=== PATIENT | male | born 1965 | race Caucasian/White ===

== ENCOUNTER 2020-09-11 00:50 | Emergency (ER) | payer OTHER ==
[2020-09-11] MEDS ORDERED: Pepcid 20 MG VIAL IV ONE ×2 (01:23→01:29)
[2020-09-11] MEDS ORDERED: PROTONIX 40 MG IV IV ONE ×5 (01:23→03:48)
[2020-09-11] MEDS ORDERED: SUBLIMAZE 100 MCG/2 ML IV ONE (01:23)
--- NOTE | 2020-09-11 01:29 | ERPHSYRPT ---
- History of Present Illness Time Seen by Provider: 09/11/20 01:26 Historian: patient Exam Limitations: no limitations Patient Subjective Stated Complaint: "My stomach hurts real bad." Triage Nursing Assessment: Patient reported epigastric pain onset 3 - 5 days ago while moving heavy objects. pain described as sharp and intermittently radiating. He is anticoagulated on brilinta. Denied diarrhea/constipation. Reported single episode coffee ground emesis. Denied any abdominal trauma. He reported that he takes Tylenol 500mg tablets - 5 tablets TID over the last three years for his back pain. Denied chest pain, shortness of breath, dizziness/li ghtheadedness. Pupills 3mm bilateral. Symmetrical chest expansion. heart tones S1/S2 RRR. Lungs vesicular throughout A/P dahl. Abdomen soft mildly distened. Bowel sounds normoactive inall quadrants. Tenderness/guarding from the epigastric area to the umbilicus. No rebound or palpable masses. Peripheral pulses +3 bilateral. Gait steady without complications. Physician History: "My stomach hurts real bad." for 1-2 days Patient reported epigastric pain onset 3 - 5 days ago while moving heavy objects. pain described as sharp and intermittently radiating. He is anticoa gulated on brilinta. Denied diarrhea/constipation. Reported single episode coffee ground emesis. Denied any abdominal trauma. He reported that he takes Tylenol 500mg tablets - 5 tablets TID over the last three years for his back pain. Denied chest pain, shortness of breath, dizziness/lightheadedness. Timing/Duration: day(s) (1-2 days) Activities at Onset: none Quality: burning Abdominal Pain Onset Location: epigastric, periumbilical Pain Radiation: no radiation Severity of Pain-Max: moderate Severity of Pain-Current: moderate Modifying Factors: Improves With: antacids Associated Symptoms: denies symptoms Previous symptoms: no prior history Body Map: 1 - area of abdominal pain Allergies/Adverse Reactions: acetaminophen [From Vicodin] Allergy (Verified 09/11/20 01:02) Rash hydrocodone bitartrate [From Vicodin] Allergy (Verified 09/11/20 01:02) Rash Iodinated Contrast Media Allergy (Verified 09/11/20 01:21) ketorolac [From Toradol] Allergy (Verified 09/11/20 01:02) Penicillins Allergy (Verified 09/11/20 01:02) codeine Adverse Reaction (Verified 09/11/20 01:02) codeine phosphate [From Codar D] Adverse Reaction (Verified 09/11/20 01:02) morphine Adverse Reaction (Verified 09/11/20 01:02) pseudoephedrine HCl [From Codar D] Adverse Reaction (Verified 09/11/20 01:02) Home Medications: Aspirin 81 gm Chew [Baby Aspirin 81 mg Chew] 81 mg PO DAILY 04/11/14 [History] Ondansetron HCl [Zofran] 4 mg PO Q6HPRN 04/11/14 [History] Albuterol Sulfate [Proair Digihaler] 2 puff IH QID PRN 09/11/20 [History] Amitriptyline HCl 25 mg [Elavil 25 mg] 25 mg PO HS 09/11/20 [History] Amlodipine Besylate 10 mg PO HS 09/11/20 [History] Atorvastatin Calcium 1 tab PO HS 09/11/20 [History] Budesonide/Formoterol Fumarate [Budesonide-Formoterol 160-4.5] 2 puffs IH BID 09/11/20 [History] Clonazepam 2 mg PO Q5H PRN 09/11/20 [History] Cyclobenzaprine HCl 10 mg [Cyclobenzaprine 10 MG] 10 mg PO DAILY PRN 09/11/20 [History] Fluticasone Propionate [Flovent Diskus] 2 sprays IN DAILY 09/11/20 [History] Metoprolol Succinate 100 mg PO HS 09/11/20 [History] Nitroglycerin [Nitrolingual] 0.4 mg SL DAILY PRN 09/11/20 [History] PANTOPRAZOLE 40 mg Tablet [Protonix 40MG Tablet] 80 mg PO BID 09/11/20 [History] Ticagrelor [Brilinta] 90 mg PO BID 09/11/20 [History] Tiotropium [place] Inhaler [Spiriva 18 Mcg/Cap Inhaler] 2 puffs IH DAILY 09/11/20 [History] lisinopriL [Lisinopril] 40 mg PO HS 09/11/20 [History] Hx Tetanus, Diphtheria Vaccination/Date Given: Yes Hx Influenza Vaccination/Date Given: No Hx Pneumococcal Vaccination/Date Given: No Travel Risk - International Travel Have you traveled outside of the country in past 3 weeks: No - Coronavirus Screening Are you exhibiting any of the following symptoms?: No Close contact with a COVID-19 positive Pt in past 14-21 Days: No - Vaccine Status Have you recieved a Covid-19 vaccination: Yes 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 - Vaccination Dates Date of 2cond Vaccination (if applicable): unknown Dates if Unknown: unknown - Review of Systems Constitutional: No Fever, No Chills Eyes: No Symptoms Ears, Nose, & Throat: No Symptoms Respiratory: No Cough, No Dyspnea Cardiac: No Chest Pain, No Edema, No Syncope Abdominal/Gastrointestinal: Abdominal Pain, No Nausea, No Vomiting, No Diarrhea Genitourinary Symptoms: No Dysuria Musculoskeletal: No Back Pain, No Neck Pain Skin: No Rash Neurological: No Dizziness, No Focal Weakness, No Sensory Changes Psychological: No Symptoms Endocrine: No Symptoms All Other Systems: Reviewed and Negative - Past Medical History Pertinent Past Medical History: Yes Neurological History: No Pertinent History, TIA ENT History: No Pertinent History Cardiac History: Aneurysm, Coronary Artery Disease, Hypertension Respiratory History: COPD, Emphysema, Sleep Apnea, Other Endocrine Medical History: No Pertinent History Musculoskeletal History: No Pertinent History GI Medical History: No Pertinent History History: No Pertinent History Psycho-Social History: Anxiety Male Reproductive Disorders: No Pertinent History Other Medical History: Right lung pnuemo, CHRONIC BACK PAIN. KIDNEY STONES - Past Surgical History Past Surgical History: Yes Neuro Surgical History: No Pertinent History Cardiac: No Pertinent History, Cardiac Catheterization, Cardiac Stent Respiratory: Other Gastrointestinal: No Pertinent History Genitourinary: No Pertinent History Musculoskeletal: Orthopedic Surgery Male Surgical History: No Pertinent History Other Surgical History: R lung cut a 1/4 off the top. 1988, back surgery - Social History Smoking Status: Current every day smoker How long have you smoked: 30 years Exposure to second hand smoke: No Drug Use: none Patient Lives Alone: No - Nursing Vital Signs Nursing Vital Signs: Initial Vital Signs Pulse Rate 65 09/11/20 00:50 Respiratory Rate 18 09/11/20 00:50 Blood Pressure 132/79 09/11/20 00:50 O2 Sat by Pulse Oximetry 100 09/11/20 00:50 Pain Scale Pain Intensity 5 - Physical Exam General Appearance: no apparent distress, alert Eye Exam: PERRL/EOMI, eyes nml inspection Ears, Nose, Throat Exam: normal ENT inspection, pharynx normal, moist mucous membranes Neck Exam: normal inspection, non-tender, supple, full range of motion Respiratory Exam: normal breath sounds, lungs clear, No respiratory distress Cardiovascular Exam: regular rate/rhythm, normal heart sounds Gastrointestinal/Abdomen Exam: soft, tenderness (epigastric), No mass Back Exam: normal inspection, normal range of motion, No CVA tenderness, No vertebral tenderness Extremity Exam: normal inspection, normal range of motion, pelvis stable Neurologic Exam: alert, oriented x 3, cooperative, normal mood/affect, nml cerebellar function, sensation nml, No motor deficits Skin Exam: normal color, warm, dry SpO2: 100 - Course Nursing assessment & vital signs reviewed: Yes - CT Exams Abdomen/Pelvis CT Interpretation: Tele-radiologist Report (no acute changes) Ordered Tests: Active Orders 24 hr Category Date Time Status EKG-ER Only STAT Care 09/11/20 03:34 Completed ABDOMEN AND PELVIS W/0 CONTRAS [CT] Stat Exams 09/11/20 01:23 Taken AMYLASE Stat Lab 09/11/20 01:34 Completed CBC W DIFF Stat Lab 09/11/20 01:34 Completed CMP Stat Lab 09/11/20 01:34 Completed LIPASE Stat Lab 09/11/20 01:34 Completed TROPONIN Q3H Lab 09/11/20 03:45 Completed Medication Summary Discontinued Medications Generic Name Dose Route Start Last Admin Trade Name Freq PRN Reason Stop Dose Admin Al Hydrox/Mg Hydrox/Simethicone Confirm 09/11/20 03:46 Maalox Es 30 Ml Unit Dose Administered 09/11/20 03:47 Dose 30 ml .ROUTE .STK-MED ONE Famotidine 20 mg 09/11/20 01:23 09/11/20 01:38 Pepcid 20 Mg Vial IV 09/11/20 01:24 20 mg STAT ONE Administration Famotidine Confirm 09/11/20 01:29 Pepcid 20 Mg Vial Administered 09/11/20 01:30 Dose 20 mg IV .STK-MED ONE Fentanyl Citrate 50 mcg 09/11/20 01:23 09/11/20 01:35 Sublimaze 100 Mcg/2 Ml IV 09/11/20 01:24 50 mcg STAT ONE Administration Fentanyl Citrate Confirm 09/11/20 01:30 Sublimaze 100 Mcg/2 Ml Administered 09/11/20 01:31 Dose 100 mcg .ROUTE .STK-MED ONE Hydromorphone HCl 1 mg 09/11/20 02:16 09/11/20 02:22 Hydromorphone 1 Mg/Ml Injection IV 09/11/20 02:17 1 mg STAT ONE Administration Hydromorphone HCl Confirm 09/11/20 02:21 Hydromorphone 1 Mg/Ml Injection Administered 09/11/20 02:22 Dose 1 mg .ROUTE .STK-MED ONE Sodium Chloride 1,000 mls @ 100 mls/hr 09/11/20 01:30 09/11/20 03:15 Sodium Chloride 0.9% 1000 Ml IV 10/11/20 01:29 Infused .Q10H KAYLYN Infusion Pantoprazole Sodium 80 mg/ 500 mls @ 50 mls/hr 09/11/20 04:00 09/11/20 03:49 Sodium Chloride IV 10/11/20 03:59 50 mls/hr .Q10H KAYLYN 50 mls/hr Administration Sodium Chloride Confirm 09/11/20 03:48 Sodium Chloride 0.9% 500 Ml Administered 09/11/20 03:49 Dose 500 mls @ ud IV .STK-MED ONE Sodium Chloride Confirm 09/11/20 01:30 Sodium Chloride 0.9% 1000 Ml Administered 09/11/20 01:31 Dose 1,000 mls @ ud .ROUTE .STK-MED ONE Lidocaine HCl Confirm 09/11/20 03:46 Xylocaine Hcl Viscous * Administered 09/11/20 03:47 Dose 15 ml .ROUTE .STK-MED ONE Magnesium Hydroxide 45 ml 09/11/20 03:46 09/11/20 03:58 Gi Cocktail 45 Ml (Maalox/Lidocaine) PO 09/11/20 03:47 45 ml STAT ONE Administration Metoclopramide HCl 10 mg 09/11/20 03:12 09/11/20 03:15 Reglan 10 Mg/2 Ml IV 09/11/20 03:13 10 mg STAT ONE Administration Metoclopramide HCl Confirm 09/11/20 03:12 Reglan 10 Mg/2 Ml Administered 09/11/20 03:13 Dose 10 mg .ROUTE .STK-MED ONE Pantoprazole Sodium 40 mg 09/11/20 01:23 09/11/20 01:35 Protonix 40 Mg Iv IV 09/11/20 01:24 40 mg STAT ONE Administration Pantoprazole Sodium Confirm 09/11/20 01:29 Protonix 40 Mg Iv Administered 09/11/20 01:30 Dose 40 mg IV .STK-MED ONE Pantoprazole Sodium 40 mg 09/11/20 03:12 09/11/20 03:15 Protonix 40 Mg Iv IV 09/11/20 03:13 40 mg STAT ONE Administration Pantoprazole Sodium Confirm 09/11/20 03:12 Protonix 40 Mg Iv Administered 09/11/20 03:13 Dose 40 mg IV .STK-MED ONE Pantoprazole Sodium Confirm 09/11/20 03:48 Protonix 40 Mg Iv Administered 09/11/20 03:49 Dose 80 mg IV .STK-MED ONE Lab/Rad Data: Laboratory Result Diagrams 09/11/20 01:34 09/11/20 01:34 Laboratory Results 09/11/20 09/11/20 09/11/20 Range/Units 03:45 01:34 01:34 WBC 9.5 (4.0-10.5) K/mm3 RBC 3.97 L (4.1-5.6) M/mm3 Hgb 11.5 L (12.5-18.0) gm/dl Hct 36.8 L (42-50) % MCV 92.7 (78-100) fl MCH 29.0 (26-32) pg MCHC 31.3 L (32-36) g/dl RDW 17.0 H (11.5-14.0) % Plt Count 236 (150-450) K/mm3 MPV 9.1 (7.5-11.0) fl Gran % 71.3 H (36.0-66.0) % Eos # (Auto) 0.08 (0-0.5) Absolute Lymphs (auto) 2.03 (1.0-4.6) Absolute Monos (auto) 0.62 (0.0-1.3) Lymphocytes % 21.3 L (24.0-44.0) % Monocytes % 6.5 (0.0-12.0) % Eosinophils % 0.8 (0.00-5.0) % Basophils % 0.1 (0.0-0.4) % Absolute Granulocytes 6.78 (1.4-6.9) Basophils # 0.01 (0-0.4) Sodium 142 (137-145) mmol/L Potassium 4.2 (3.5-5.1) mmol/L Chloride 107 (98-107) mmol/L Carbon Dioxide 22 (22-30) mmol/L Anion Gap 16.9 H (5-15) MEQ/L BUN 25 H (9-20) mg/dL Creatinine 1.84 H (0.66-1.25) mg/dL Estimated GFR 40.8 ML/MIN Glucose 101 (74-106) mg/dL Calcium 9.2 (8.4-10.2) mg/dL Total Bilirubin 0.30 (0.2-1.3) mg/dL AST 27 (17-59) U/L ALT 14 (0-50) U/L Alkaline Phosphatase 105 (38-126) U/L Troponin I < 0.012 (0.000-0.034) ng/mL Serum Total Protein 7.8 (6.3-8.2) g/dL Albumin 4.2 (3.5-5.0) g/dL Amylase 37 (30-110) U/L Lipase 87 (23-300) U/L - Progress Progress: unchanged, pain not gone completely Progress Note: 09/11/20 04:19 Patient was given IV fentanyl, IV Pepcid, IV Protonix, IV Dilaudid. After IV Dilaudid patient has a bradycardic episode so patient was given IV fluid bolus and Protonix IV drip was started [place] [facility] contacted and they accepted patien t. Patient wants to go home but patient is in so much abdominal pain that he is rolling into his bed with agonizing pain. I talked to his and explained her that he cannot go home he needs to be transferred all arrangements has been made. Patient also agrees with this and she is trying to explain patient to get transferred to [place]. 09/11/20 06:59 Patient signed AMA Discussed with Dr.: Other ([facility], Hospitalist Sx) Will see patient in: other ([place], [place], ER) Counseled pt/family regarding: lab results, diagnosis, need for follow-up, rad results - Departure Departure Disposition: AMA Clinical Impression: Acute exacerbation of chronic low back pain, Abdominal pain increased with position change, History of abdominal aortic aneurysm, Transient hypotension, Bradyarrhythmia Condition: Fair Critical Care Time: Yes Critical Care Time(excluding separately billable procedures): Critical 75-104 mins Referrals: HOSPITAL,'S [Primary Care Provider] - Follow Up with PCP/3 days Instructions: Acute Abdomen (Belly Pain), Adult (DC) Additional Instructions: Discharge/Care Plan DONTE NIDIA was seen on 09/11/20 in the Emergency Room. The patient was counseled regarding Diagnosis,Lab results, Imaging studies, need for follow up and when to return to the Emergency Room. Prescriptions given: Discharge Note I have spoken with the patient and/or caregivers. I have explained the patient's condition, diagnosis and treatment plan based on the information available to me at this time. I have answered the patient's and/or caregiver's questions and a ddressed any concerns. The patient and/or caregivers have as good understanding of the patient's diagnosis, condition and treatment plan as can be expected at this point. The vital signs have been stable. The patient's condition is stable and appropriate for discharge from the emergency department. The patient will pursue further outpatient evaluation with the primary care physician or other designated or consulting physician as outlined in the discharge instructions. The patient and/or caregivers are agreeable to this plan of care and follow-up instructions have been explained in detail. The patient and/or caregivers have received these instruction. The patient/and or caregivers are aware that any significant change in condition or worsening of symptoms should prompt an immediate return to this or the closest emergency department or call 911. DONTE ROBLESNIDIA TRINH was seen on 09/11/20 n the Emergency Room. At that time you were treated for an emergent condition, during your visit Laboratory, Radiology and/or other procedures may have been ordered. It is very important that you follow-up with your Primary Care Physician [facility] within the next 24-48 hours to review your Emergency Room visit and the final results of testing that was ordered. Some test results such as Urine Cultures, Blood Cultures, and other cultures if ordered will not be finalized for 24-48 hours. If you do not have a Primary Care Provider please call the medical records department at [phone] ext [phone] to obtain a copy of your results or you may sign into our patient portal to obtain these results by visiting us @ [email or web address] and completing the following steps: 1. Click on the Patient Portal link 2. Click the Patient Self Enrollment Link to complete the enrollment form and entering your 3. Once the enrollment form is completed you will receive an email with a te [employer] ID and password at the email address you provided. 4. Next choose a user name and password. Your user name must be at least 4 characters long and your password must be at least 4 characters long. 5. Choose a security question from the list and provide your answer to the question. If you already have signed into the Health Portal you may access your Health Care Information 04/09 by the following steps: 1. Login to our website @ [email or web address] 2. Enter your original user name and password. FAQS The [facility] Health Portal is an online tool that contains your Lab Results, Radiology Reports, Visit History, Discharge Instructions and Health Summary Lab and Radiology Results will not be available for 72 hours on the portal. The Portal is a secure site, passwords are encryted and URLs are re-written so they cannot be copied and pasted. You and authorized family members are the only ones who can access your Portal. Also there is a timeout feature that protects your information if you leave the Portal page open. If you have technical difficulty please use the Contact Us link on the page this will allow you to submit any questions you have regarding the Portal or you may contact the Medical Record Department at [phone] ext [phone].
[2020-09-11] MEDS ORDERED: Sodium Chloride 0.9% 1000 ML 1,000 ML IV SCH (01:30)
[2020-09-11] MEDS ORDERED: SUBLIMAZE 100 MCG/2 ML ONE (01:30)
[2020-09-11] MEDS ORDERED: Sodium Chloride 0.9% 1000 ML 1,000 ML ONE (01:30)
[2020-09-11 01:38] LABS: Absolute Neutrophil Ct (ANC) 6.78 (1.4-6.9); BASOPHIL % 0.1 % (0.0-0.4); Basophil (Absolute #) 0.01 (0-0.4); Eosinophil % 0.8 % (0.00-5.0); Eosinophil (Absolute #) 0.08 (0-0.5); Hematocrit 36.8 % (42-50); Hemoglobin 11.5 gm/dl (12.5-18.0); Lymphocyte (Absolute #) 2.03 (1.0-4.6); Lymphocytes % 21.3 % (24.0-44.0); Mean Cell Volume 92.7 fl (78-100); Mean Corpuscular Hgb Concent. 31.3 g/dl (32-36); Mean Platelet Volume 9.1 fl (7.5-11.0); Monocyte (Absolute #) 0.62 (0.0-1.3); Monocytes % 6.5 % (0.0-12.0); Neutrophil % 71.3 % (36.0-66.0); Platelet Count 236 K/mm3 (150-450); Red Blood Count 3.97 M/mm3 (4.1-5.6); White Blood Count 9.5 K/mm3 (4.0-10.5)
[2020-09-11 01:46] LABS: ALBUMIN 4.2 g/dL (3.5-5.0); ANION GAP 16.9 MEQ/L (5-15); BILIRUBIN,TOTAL 0.3 mg/dL (0.2-1.3); Calcium 9.2 mg/dL (8.4-10.2); Creatinine 1 1.84 mg/dL (0.66-1.25); EST GLOMERULAR FILTRATION RATE 40.8 ML/MIN; Potassium 4.2 mmol/L (3.5-5.1); Total Protein 7.8 g/dL (6.3-8.2)
[2020-09-11] MEDS ORDERED: Hydromorphone 1 mg/ml Injection IV ONE (02:16)
[2020-09-11] MEDS ORDERED: Hydromorphone 1 mg/ml Injection ONE (02:21)
[2020-09-11] MEDS ORDERED: Reglan 10 MG/2 ML IV ONE (03:12)
[2020-09-11] MEDS ORDERED: Reglan 10 MG/2 ML ONE (03:12)
[2020-09-11] MEDS ORDERED: GI COCKTAIL 45 ML (Maalox/Lidocaine) PO ONE (03:46)
[2020-09-11] MEDS ORDERED: XYLOCAINE HCl Viscous ONE (03:46)
[2020-09-11] MEDS ORDERED: MAALOX ES 30 ML UNIT DOSE ONE (03:46)
[2020-09-11] MEDS ORDERED: Sodium Chloride 0.9% 500 ML 500 ML IV ONE (03:48)
[2020-09-11] MEDS ORDERED: PROTONIX 40 MG IV*** 80 MG in Sodium Chloride 0.9% 500 ML 500 ML IV SCH (04:00)
[2020-09-11 04:23] VITALS: O2SAT 100
[2020-09-11 05:08] VITALS: BP 110/40; PULSE 51
--- NOTE | 2020-09-11 07:37 | XRAY ---
Indication: Periumbilical/epigastric pain. Nausea and vomiting. Multiple contiguous axial images obtained through the abdomen and pelvis without contrast. Comparison: October 23, 2011. Lung bases again demonstrates scattered atelectasis/scarring without focal infiltrate or effusion. Heart not enlarged. Stable small hiatal hernia. There has been interval L4-L5 fusion with intact bilateral posterior spinal hardware producing beam artifact limiting these levels. Noncontrasted stomach and bowel loops appear nonobstructed. Normal appendix. Mild sigmoid diverticulosis without diverticulitis. No free fluid/air. Tiny hepatic/splenic calcified granulomas. Remaining liver, gallbladder, pancreas, spleen, adrenal glands, kidneys, ureters, and bladder are unremarkable for noncontrast exam. Worsening diffuse scattered vascular calcifications including both main renal arteries distally. New 3.1 x 2.7 cm infrarenal fusiform aneurysm. Osseous structures intact. No ventral or inguinal hernias. Impression: 1. Interval L4-L5 fusion with beam artifact from spinal hardware. 2. Worsening arteriosclerotic disease with new distal AAA. 3. Stable small hiatal hernia sigmoid diverticulosis, and old granulomatous disease. 4. Remaining CT abdomen/pelvis without contrast exam is negative. Comment: Preliminary interpretation made by C. No critical discrepancy.
== END 2020-09-11 05:00 | disposition left against medical advice (07) ==
LOC: ED 00:50
DX: M54.5 Low back pain (principal); R10.9 Unspecified abdominal pain; I71.4 Abdominal aortic aneurysm, without rupture; I95.9 Hypotension, unspecified; I49.8 Other specified cardiac arrhythmias; Z79.899 Other long term (current) drug therapy; Z86.73 Personal history of transient ischemic attack (TIA), and cerebral infarction without residual deficits; I10 Essential (primary) hypertension; I25.10 Atherosclerotic heart disease of native coronary artery without angina pectoris; G47.30 Sleep apnea, unspecified; F51.9 Sleep disorder not due to a substance or known physiological condition, unspecified
CPT/HCPCS: 36415; 74176; 80053; 82150; 83690; 84484; 85025; 93005; 96374; 96375; 96376; 99285; 99291; 99292; J1170; J3010; A9270-GY

== ENCOUNTER 2020-11-01 00:36 | Emergency (ER) | payer OTHER ==
[2020-11-01] MEDS ORDERED: KEFLEX 500 MG PO ONE (00:59)
[2020-11-01] MEDS ORDERED: KEFLEX 500 MG ONE (01:05)
[2020-11-01 01:07] VITALS: O2SAT 96
--- NOTE | 2020-11-01 01:07 | ERPHSYRPT ---
- History of Present Illness Time Seen by Provider: 11/01/20 00:46 Source: patient Exam Limitations: no limitations Physician History: 55 years old patient with history of hypertension, hyperlipidemia, COPD, obstructive sleep apnea who has inspire placed in for SMITH last month and yesterday noticed some white spots on the incisions on the chest wall which he squeezed and small amount of pus came out. Denies any pain. No fever or chills. No erythema at the base of mouth incision. Timing/Duration: yesterday, sudden Quality: other Severity: mild Location: torso Possible Causes: no cause identified Associated Symptoms: rash, swelling/mass/lumps Allergies/Adverse Reactions: acetaminophen [From Vicodin] Allergy (Verified 09/11/20 01:02) Rash hydrocodone bitartrate [From Vicodin] Allergy (Verified 09/11/20 01:02) Rash Iodinated Contrast Media Allergy (Verified 09/11/20 01:21) ketorolac [From Toradol] Allergy (Verified 09/11/20 01:02) Penicillins Allergy (Verified 09/11/20 01:02) codeine Adverse Reaction (Verified 09/11/20 01:02) codeine phosphate [From Codar D] Adverse Reaction (Verified 09/11/20 01:02) morphine Adverse Reaction (Verified 09/11/20 01:02) pseudoephedrine HCl [From Codar D] Adverse Reaction (Verified 09/11/20 01:02) Home Medications: Aspirin 81 gm Chew [Baby Aspirin 81 mg Chew] 81 mg PO DAILY 04/11/14 [History] Ondansetron HCl [Zofran] 4 mg PO Q6HPRN 04/11/14 [History] Albuterol Sulfate [Proair Digihaler] 2 puff IH QID PRN 09/11/20 [History] Amitriptyline HCl 25 mg [Elavil 25 mg] 25 mg PO HS 09/11/20 [History] Amlodipine Besylate 10 mg PO HS 09/11/20 [History] Atorvastatin Calcium 1 tab PO HS 09/11/20 [History] Budesonide/Formoterol Fumarate [Budesonide-Formoterol 160-4.5] 2 puffs IH BID 09/11/20 [History] Clonazepam 2 mg PO Q5H PRN 09/11/20 [History] Cyclobenzaprine HCl 10 mg [Cyclobenzaprine 10 MG] 10 mg PO DAILY PRN 09/11/20 [History] Fluticasone Propionate [Flovent Diskus] 2 sprays IN DAILY 09/11/20 [History] Metoprolol Succinate 100 mg PO HS 09/11/20 [History] Nitroglycerin [Nitrolingual] 0.4 mg SL DAILY PRN 09/11/20 [History] PANTOPRAZOLE 40 mg Tablet [Protonix 40MG Tablet] 80 mg PO BID 09/11/20 [History] Ticagrelor [Brilinta] 90 mg PO BID 09/11/20 [History] Tiotropium [place] Inhaler [Spiriva 18 Mcg/Cap Inhaler] 2 puffs IH DAILY 09/11/20 [History] lisinopriL [Lisinopril] 40 mg PO HS 09/11/20 [History] Hx Tetanus, Diphtheria Vaccination/Date Given: Yes Hx Influenza Vaccination/Date Given: No Hx Pneumococcal Vaccination/Date Given: No Travel Risk - Vaccine Status Have you recieved a Covid-19 vaccination: Yes 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 - Vaccination Dates Date of 2cond Vaccination (if applicable): unknown Dates if Unknown: unknown - Review of Systems Constitutional: No Symptoms Eyes: No Symptoms Ears, Nose, & Throat: No Symptoms Respiratory: No Symptoms Cardiac: No Symptoms Abdominal/Gastrointestinal: No Symptoms Skin: Cellulitis Neurological: No Symptoms Psychological: No Symptoms Endocrine: No Symptoms Hematologic/Lymphatic: No Symptoms Immunological/Allergic: No Symptoms - Past Medical History Pertinent Past Medical History: Yes Neurological History: No Pertinent History, TIA ENT History: No Pertinent History Cardiac History: Aneurysm, Coronary Artery Disease, Hypertension Respiratory History: COPD, Emphysema, Sleep Apnea, Other Endocrine Medical History: No Pertinent History Musculoskeletal History: No Pertinent History GI Medical History: No Pertinent History History: No Pertinent History Psycho-Social History: Anxiety Male Reproductive Disorders: No Pertinent History Other Medical History: Right lung pnuemo, CHRONIC BACK PAIN. KIDNEY STONES - Past Surgical History Past Surgical History: Yes Neuro Surgical History: No Pertinent History Cardiac: No Pertinent History, Cardiac Catheterization, Cardiac Stent Respiratory: Other Gastrointestinal: No Pertinent History Genitourinary: No Pertinent History Musculoskeletal: Orthopedic Surgery Male Surgical History: No Pertinent History Other Surgical History: R lung cut a 1/4 off the top. 1989, back surgery - Social History Smoking Status: Current every day smoker How long have you smoked: 30 years Exposure to second hand smoke: No Drug Use: none Patient Lives Alone: No - Physical Exam General Appearance: no apparent distress, alert Eye Exam: PERRL/EOMI Ears, Nose, Throat Exam: normal ENT inspection Neck Exam: normal inspection, non-tender, supple, full range of motion, other (Well-healing scar elaine at the base of right jaw/upper neck) Respiratory Exam: normal breath sounds, lungs clear Cardiovascular Exam: regular rate/rhythm, normal heart sounds, other (Right- sided chest wall incision with minimal erythema/induration without obvious discharge. No increased temperature.) Back Exam: normal inspection, normal range of motion Extremity Exam: normal inspection, normal range of motion Neurologic Exam: alert, oriented x 3, cooperative Skin Exam: normal color SpO2 Interpretation: normal SpO2: 96 O2 Delivery: Room Air - Progress Progress: unchanged Progress Note: 11/01/20 01:07 Did not notice kirsten cellulitis but has mild induration. Started on Keflex. Recommended outpatient follow-up in 2 days as scheduled. Discussed signs symptoms of worsening needing return to ER which he seems understanding. Counseled pt/family regarding: diagnosis, need for follow-up - Departure Departure Disposition: Home Clinical Impression: Wound, surgical, infected Condition: Stable Critical Care Time: No Referrals: HOSPITAL,'S [Primary Care Provider] - (In 2 days as scheduled) Instructions: Wound Care (DC) Additional Instructions: Keep it clean, take Tylenol as needed, continue with antibiotics. Follow-up with primary care physician for reevaluation in 2 days as scheduled. Return to ER for increasing swelling redness discharge/fever chills etc. Prescriptions: Cephalexin Mh 500 mg [Keflex 500 mg] 500 mg PO TID #21 cap
[2020-11-01 01:25] VITALS: BP 123/76; PULSE 71
== END 2020-11-01 01:24 | disposition home or self-care (01) ==
LOC: ED 00:36
DX: S21.101A Unspecified open wound of right front wall of thorax without penetration into thoracic cavity, initial encounter (principal); I10 Essential (primary) hypertension; E78.5 Hyperlipidemia, unspecified; J44.9 Chronic obstructive pulmonary disease, unspecified; G47.33 Obstructive sleep apnea (adult) (pediatric); Z79.899 Other long term (current) drug therapy
CPT/HCPCS: 99283; A9270-GY

== ENCOUNTER 2020-12-10 01:32 | Emergency (ER) | payer OTHER ==
[2020-12-10] MEDS ORDERED: Reglan 10 MG/2 ML IV ONE (02:06)
[2020-12-10] MEDS ORDERED: BENADRYL 50 MG/ML IV ONE (02:06)
[2020-12-10] MEDS ORDERED: Hydromorphone 1 mg/ml Injection IV ONE (02:06)
[2020-12-10] MEDS ORDERED: Sodium Chloride 0.9% 500 ML 500 ML IV ONE ×2 (02:07→02:17)
[2020-12-10] MEDS ORDERED: Hydromorphone 1 mg/ml Injection ONE (02:16)
[2020-12-10] MEDS ORDERED: Reglan 10 MG/2 ML ONE (02:16)
[2020-12-10] MEDS ORDERED: BENADRYL 50 MG/ML ONE (02:16)
--- NOTE | 2020-12-10 02:58 | ERPHSYRPT ---
- History of Present Illness Time Seen by Provider: 12/10/20 02:06 Source: patient Exam Limitations: no limitations Patient Subjective Stated Complaint: pt states he woke up with a migraine at approx 0230 on 12/09/20 after having a popping sound in the lt side of his head. Triage Nursing Assessment: pt alert and oriented, answers questions approp. pt ambulatory with steady gait noted. skin warma nd dry. respriations nonlabored. pupils equal and reactive. bilat upper and lower ext strength equal and wnl. Physician History: 45 years old male with multiple medical problems including coronary artery disease status post stenting, tobacco abuse, hypertension/COPD, obstructive sleep apnea status post inspire placement recently, migraines presented to the ER with left-sided headache since yesterday 2 AM waking him up from sleep. Patient reported he felt some popping sounds and followed by headache constant, moderate to severe sharp, increased light sensitivity and sound making it worse without any associated nausea and vomiting. She denies any numbness tingling or weakness. No difficulty speech or visual disturbance. Has taken Tylenol at home with no significant relief. Timing/Duration: day(s) (1), constant, sudden, worse Quality: sharpness Severity of Pain-Max: severe Severity of Pain-Current: severe Recent Head Trauma: no recent headache/trauma, frequent headaches Associated Symptoms: denies symptoms, No fever/chills, No loss of consciousness, No nausea/vomiting, No neck pain, No numbness in legs/feet, No seizures, No stiff neck, No trouble walking, No vision changes, No visual disturbance Previous symptoms: same symptoms as today Allergies/Adverse Reactions: acetaminophen [From Vicodin] Allergy (Verified 09/11/20 01:02) Rash hydrocodone bitartrate [From Vicodin] Allergy (Verified 09/11/20 01:02) Rash Iodinated Contrast Media Allergy (Verified 09/11/20:21) ketorolac [From Toradol] Allergy (Verified 09/11/20 01:02) Penicillins Allergy (Verified 09/11/20 01:02) codeine Adverse Reaction (Verified 09/11/20 01:02) codeine phosphate [From Codar D] Adverse Reaction (Verified 09/11/20 01:02) morphine Adverse Reaction (Verified 09/11/20 01:02) pseudoephedrine HCl [From Codar D] Adverse Reaction (Verified 09/11/20 01:02) Home Medications: Aspirin 81 gm Chew [Baby Aspirin 81 mg Chew] 81 mg PO DAILY 04/11/14 [History] Ondansetron HCl [Zofran] 4 mg PO Q6HPRN 04/11/14 [History] Albuterol Sulfate [Proair Digihaler] 2 puff IH QID PRN 09/11/20 [History] Amitriptyline HCl 25 mg [Elavil 25 mg] 25 mg PO HS 09/11/20 [History] Amlodipine Besylate 10 mg PO HS 09/11/20 [History] Atorvastatin Calcium 1 tab PO HS 09/11/20 [History] Budesonide/Formoterol Fumarate [Budesonide-Formoterol 160-4.5] 2 puffs IH BID 09/11/20 [History] Clonazepam 2 mg PO Q5H PRN 09/11/20 [History] Cyclobenzaprine HCl 10 mg [Cyclobenzaprine 10 MG] 10 mg PO DAILY PRN 09/11/20 [History] Fluticasone Propionate [Flovent Diskus] 2 sprays IN DAILY 09/11/20 [History] Metoprolol Succinate 100 mg PO HS 09/11/20 [History] Nitroglycerin [Nitrolingual] 0.4 mg SL DAILY PRN 09/11/20 [History] PANTOPRAZOLE 40 mg Tablet [Protonix 40MG Tablet] 80 mg PO BID 09/11/20 [History] Ticagrelor [Brilinta] 90 mg PO BID 09/11/20 [History] Tiotropium [place] Inhaler [Spiriva 18 Mcg/Cap Inhaler] 2 puffs IH DAILY 09/11/20 [History] lisinopriL [Lisinopril] 40 mg PO HS 09/11/20 [History] Hx Tetanus, Diphtheria Vaccination/Date Given: No (unsure) Hx Influenza Vaccination/Date Given: No Hx Pneumococcal Vaccination/Date Given: No Immunizations Up to Date: No Travel Risk - International Travel Have you traveled outside of the country in past 3 weeks: No - Coronavirus Screening Are you exhibiting any of the following symptoms?: No Close contact with a COVID-19 positive Pt in past 14-21 Days: No - Vaccine Status Have you recieved a Covid-19 vaccination: Yes 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 - Vaccination Dates Dates if Unknown: "few months" - Review of Systems Constitutional: No Symptoms Eyes: No Symptoms Ears, Nose, & Throat: No Symptoms Respiratory: No Symptoms Cardiac: No Symptoms Genitourinary Symptoms: No Symptoms Musculoskeletal: No Symptoms Skin: No Symptoms Neurological: Headache Psychological: No Symptoms Endocrine: No Symptoms Immunological/Allergic: No Symptoms - Past Medical History Pertinent Past Medical History: Yes Neurological History: No Pertinent History, TIA ENT History: No Pertinent History Cardiac History: Aneurysm, Coronary Artery Disease, Hypertension Respiratory History: COPD, Emphysema, Sleep Apnea, Other Endocrine Medical History: No Pertinent History Musculoskeletal History: No Pertinent History GI Medical History: No Pertinent History History: No Pertinent History Psycho-Social History: Anxiety Male Reproductive Disorders: No Pertinent History Other Medical History: Right lung pnuemo, CHRONIC BACK PAIN. KIDNEY STONES - Past Surgical History Past Surgical History: Yes Neuro Surgical History: No Pertinent History Cardiac: No Pertinent History, Cardiac Catheterization, Cardiac Stent Respiratory: Other Gastrointestinal: No Pertinent History Genitourinary: No Pertinent History Musculoskeletal: Orthopedic Surgery Male Surgical History: No Pertinent History Other Surgical History: R lung cut a / off the top. 1988, back surgery , inspire placement - Social History Smoking Status: Current every day smoker How long have you smoked: 30 years Exposure to second hand smoke: No Drug Use: none Patient Lives Alone: No - Nursing Vital Signs Nursing Vital Signs: Initial Vital Signs Temperature 97.0 F 12/10/20 01:41 Pulse Rate 72 12/10/20 01:41 Respiratory Rate 16 12/10/20 01:41 Blood Pressure 141/81 12/10/20 01:41 O2 Sat by Pulse Oximetry 99 12/10/20 01:41 Pain Scale Pain Intensity 2 - Physical Exam General Appearance: no apparent distress Eye Exam: PERRL/EOMI Ears, Nose, Throat Exam: normal ENT inspection, TMs normal, pharynx normal Neck Exam: normal inspection, supple, full range of motion Respiratory Exam: normal breath sounds, lungs clear Cardiovascular Exam: regular rate/rhythm, normal heart sounds Gastrointestinal/Abdominal Exam: soft, No tenderness Extremity Exam: normal inspection, normal range of motion, pelvis stable Mental Status Exam: alert, oriented x 3, cooperative research and insights executive Exam: normal hearing, normal speech, PERRL, No facial asymmetry Coordination/Gait Exam: normal finger to nose, normal cerebellar function Motor/Sensory Exam: no motor deficit, no sensory deficit, no pronator drift, negative Babinski's sign DTR Exam: bicep (R): 2+, bicep (L): 2+, knee (R): 2+, knee (L): 2+ Skin Exam: normal color SpO2 Interpretation: normal SpO2: 96 O2 Delivery: Room Air Ordered Tests: Active Orders 24 hr Category Date Time Status Ambulate Patient ROUTINE Care 12/10/20 02:06 Completed Executive Kitchen Manager STAT Care 12/10/20 02:06 Completed IV Insertion STAT Care 12/10/20 02:06 Completed HEAD WITHOUT CONTRAST [CT] Stat Exams 12/10/20 02:06 Taken Medication Summary Discontinued Medications Generic Name Dose Route Start Last Admin Trade Name Freq PRN Reason Stop Dose Admin Diphenhydramine HCl 25 mg 12/10/20 02:06 12/10/20 02:22 Diphenhydramine Hcl 50 Mg/Ml Vial IV 12/10/20 02:07 25 mg STAT ONE Administration Diphenhydramine HCl Confirm 12/10/20 02:16 Diphenhydramine Hcl 50 Mg/Ml Vial Administered 12/10/20 02:17 Dose 50 mg .ROUTE .STK-MED ONE Hydromorphone HCl 0.5 mg 12/10/20 02:06 12/10/20 02:23 Hydromorphone 1 Mg/1ml Inj 1 Mg/Ml Syringe IV 12/10/20 02:07 0.5 mg STAT ONE Administration Hydromorphone HCl Confirm 12/10/20 02:16 Hydromorphone 1 Mg/1ml Inj 1 Mg/Ml Syringe Administered 12/10/20 02:17 Dose 1 mg .ROUTE .STK-MED ONE Sodium Chloride 500 mls @ 500 mls/hr 12/10/20 02:07 12/10/20 03:56 Sodium Chloride 0.9% 500 Ml IV 12/10/20 03:06 Infused .Q1H ONE Infusion Sodium Chloride Confirm 12/10/20 02:17 Sodium Chloride 0.9% 500 Ml Administered 12/10/20 02:18 Dose 500 mls @ ud IV .STK-MED ONE Metoclopramide HCl 10 mg 12/10/20 02:06 12/10/20 02:23 Metoclopramide Hcl 10 Mg/2 Ml Vial IV 12/10/20 02:07 10 mg STAT ONE Administration Metoclopramide HCl Confirm 12/10/20 02:16 Metoclopramide Hcl 10 Mg/2 Ml Vial Administered 12/10/20 02:17 Dose 10 mg .ROUTE .STK-MED ONE - Progress Progress: improved Air Movement: good Progress Note: 12/10/20 06:45 55 years old is evaluated for left-sided headache without any focal neuro deficit. Given migraine cocktail with Benadryl/Reglan along with Dilaudid and is headache free on reevaluation. CT head is negative. Patient neuro exam nonfocal on repeated evaluation. I believe patient has worsening of migraines since he has inspire on placed which in some patient is reason for recurrent migraine. He does have a neurologist at [facility] which he is advised to follow-up on. Discussed signs symptoms of worsening needing return to ER which he seems understanding. Stable for discharge. Counseled pt/family regarding: diagnosis, need for follow-up, rad results - Departure Departure Disposition: Home Clinical Impression: Migraine Qualifiers: Migraine type: unspecified Status migrainosus presence: without status migrainosus Intractability: not intractable Qualified Code(s): G43.909 - Migraine, unspecified, not intractable, without status migrainosus Condition: Stable Critical Care Time: No Referrals: [facility]OSP[facility] [Primary Care Provider] - (Your neurologist at [facility] for reevaluation) Instructions: Headache, Adult ([facility]) Additional Instructions: Take Tylenol as needed. Follow-up with your [facility] center for evaluation by your neurologist for adjustment in medications. Return to ER for intractable headache, numbness tingling focal weakness, difficulty speech or visual disturbance etc.
[2020-12-10 04:05] VITALS: BP 126/80; PULSE 72
[2020-12-10 07:00] VITALS: O2SAT 96
--- NOTE | 2020-12-10 08:46 | XRAY ---
Indication: Left head pain/headache. Multiple contiguous axial images obtained through the head without contrast. Comparison: April 11, 2014. Normal appearing brain parenchyma, ventricles, and bony calvarium. Visualized paranasal sinuses and mastoid air cells are clear. Impression: Continued normal CT head without contrast exam. Comment: Preliminary interpretation made by [facility]. No critical discrepancy.
== END 2020-12-10 04:04 | disposition home or self-care (01) ==
LOC: ED 01:32
DX: G43.909 Migraine, unspecified, not intractable, without status migrainosus (principal)
CPT/HCPCS: 36000; 70450; 93041; 96360; 96374; 96375; 99284; J1170; J1200

== ENCOUNTER 2020-12-25 01:15 | Emergency (ER) | payer OTHER ==
[2011-11-20 09:43] VITALS: BP 125/77
[2020-12-25] MEDS ORDERED: Hydromorphone 1 mg/ml Injection IM ONE (01:48)
[2020-12-25] MEDS ORDERED: Norflex 60 MG/2 ML IM ONE (01:49)
--- NOTE | 2020-12-25 01:55 | ERPHSYRPT ---
- History of Present Illness Time Seen by Provider: 12/25/20 01:35 Source: patient Exam Limitations: no limitations Patient Subjective Stated Complaint: "I hurt my back." Triage Nursing Assessment: Patient reported that he was lifting a cedar chest 12/24/20 when he strained his back. Has a history of L4/L5 laminectomy with richard stabilization. Reported sharp pain in the lumbar spine radiating up with tingling sensation in his lower extremities. Denied urinary/bowel habit changes of difficulties. Gait slow without complications. No obvious injuries, deformities, or swelling. Strength equal in the bilateral upper/lower extremities. Physician History: 55 years old male with history of chronic back pain with L4/L5 laminectomy presented in the ER with chief complaint of worsening back pain since last evening off. He picked up a heavy chest seizure weighing almost 250 pounds. Patient denies hearing any popping sound but has worsening of pain in the low back and bilateral sacroiliac area with some radiation to upper thighs/buttock and tingly sensations in the legs. Patient does have history of some nerve damage. Denies any weakness in lower extremities or difficulty ambulation but because of pain in the back having hard time walking because the pain gets worse with ambulation particularly for being still. Denies any loss of bowel or bladder control. No perineal numbness. Timing/Duration: yesterday, constant, sudden, worse Method of Injury: lifting Quality: sharp Back Pain Location: lumbar spine, paraspinous muscles Back Pain Radiation: buttocks, upper legs Severity of Pain-Max: severe Severity of Pain-Current: severe Modifying Factors: Worsens With: movement Associated Symptoms: tingling in legs/feet, lower back pain, muscle spasms, No fever, No urinary incontinence, No loss of bowel control, No problems urinating, No numbness in legs/feet, No weakness Previous symptoms: same symptoms as today Allergies/Adverse Reactions: acetaminophen [From Vicodin] Allergy (Verified 12/25/20 01:36) Rash hydrocodone bitartrate [From Vicodin] Allergy (Verified 12/25/20 01:36) Rash Iodinated Contrast Media Allergy (Verified 12/25/20 01:36) ketorolac [From Toradol] Allergy (Verified 12/25/20 01:36) Penicillins Allergy (Verified 12/25/20 01:36) codeine Adverse Reaction (Verified 12/25/20 01:36) codeine phosphate [From Codar D] Adverse Reaction (Verified 12/25/20 01:36) morphine Adverse Reaction (Verified 12/25/20 01:36) pseudoephedrine HCl [From Codar D] Adverse Reaction (Verified 12/25/20 01:36) Home Medications: Aspirin 81 gm Chew [Baby Aspirin 81 mg Chew] 81 mg PO DAILY 04/11/14 [History] Ondansetron HCl [Zofran] 4 mg PO Q6HPRN 04/11/14 [History] Albuterol Sulfate [Proair Digihaler] 2 puff IH QID PRN 09/11/20 [History] Amitriptyline HCl 25 mg [Elavil 25 mg] 25 mg PO HS 09/11/20 [History] Amlodipine Besylate 10 mg PO HS 09/11/20 [History] Atorvastatin Calcium 1 tab PO HS 09/11/20 [History] Budesonide/Formoterol Fumarate [Budesonide-Formoterol 160-4.5] 2 puffs IH BID 09/11/20 [History] Clonazepam 2 mg PO Q5H PRN 09/11/20 [History] Cyclobenzaprine HCl 10 mg [Cyclobenzaprine 10 MG] 10 mg PO DAILY PRN 09/11/20 [History] Fluticasone Propionate [Flovent Diskus] 2 sprays IN DAILY 09/11/20 [History] Metoprolol Succinate 100 mg PO HS 09/11/20 [History] Nitroglycerin [Nitrolingual] 0.4 mg SL DAILY PRN 09/11/20 [History] PANTOPRAZOLE 40 mg Tablet [Protonix 40MG Tablet] 80 mg PO BID 09/11/20 [History] Ticagrelor [Brilinta] 90 mg PO BID 09/11/20 [History] Tiotropium [place] Inhaler [Spiriva 18 Mcg/Cap Inhaler] 2 puffs IH DAILY 09/11/20 [History] lisinopriL [Lisinopril] 40 mg PO HS 09/11/20 [History] Hx Tetanus, Diphtheria Vaccination/Date Given: No (unsure) Hx Influenza Vaccination/Date Given: No Hx Pneumococcal Vaccination/Date Given: No Travel Risk - International Travel Have you traveled outside of the country in past 3 weeks: No - Coronavirus Screening Are you exhibiting any of the following symptoms?: No Close contact with a COVID-19 positive Pt in past 14-21 Days: No - Vaccine Status Have you recieved a Covid-19 vaccination: Yes 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 - Vaccination Dates Date of 2cond Vaccination (if applicable): 05/2020 Dates if Unknown: na - Review of Systems Constitutional: No Symptoms Eyes: No Symptoms Ears, Nose, & Throat: No Symptoms Respiratory: No Symptoms Cardiac: No Symptoms Abdominal/Gastrointestinal: No Symptoms Genitourinary Symptoms: No Symptoms Musculoskeletal: Back Pain Neurological: No Symptoms Psychological: No Symptoms Endocrine: No Symptoms Hematologic/Lymphatic: No Symptoms Immunological/Allergic: No Symptoms - Past Medical History Pertinent Past Medical History: Yes Neurological History: No Pertinent History, TIA ENT History: No Pertinent History Cardiac History: Aneurysm, Coronary Artery Disease, Hypertension Respiratory History: COPD, Emphysema, Sleep Apnea, Other Endocrine Medical History: No Pertinent History Musculoskeletal History: No Pertinent History GI Medical History: No Pertinent History History: No Pertinent History Psycho-Social History: Anxiety Male Reproductive Disorders: No Pertinent History Other Medical History: Right lung pnuemo, CHRONIC BACK PAIN. KIDNEY STONES - Past Surgical History Past Surgical History: Yes Neuro Surgical History: No Pertinent History Cardiac: No Pertinent History, Cardiac Catheterization, Cardiac Stent Respiratory: Other Gastrointestinal: No Pertinent History Genitourinary: No Pertinent History Musculoskeletal: Orthopedic Surgery Male Surgical History: No Pertinent History Other Surgical History: R lung cut a 1/4 off the top. 1988, back surgery , inspire placement - Social History Smoking Status: Current every day smoker How long have you smoked: 30 years Exposure to second hand smoke: No Drug Use: none Patient Lives Alone: No - Nursing Vital Signs Nursing Vital Signs: Initial Vital Signs Pulse Rate 74 12/25/20 01:16 Respiratory Rate 18 12/25/20 01:16 Blood Pressure 128/74 12/25/20 01:16 O2 Sat by Pulse Oximetry 96 12/25/20 01:16 Pain Scale Pain Intensity 9 - Physical Exam General Appearance: no apparent distress, alert Eye Exam: PERRL/EOMI Ears, Nose, Throat Exam: normal ENT inspection Neck Exam: normal inspection, full range of motion Respiratory Exam: normal breath sounds, lungs clear Cardiovascular Exam: regular rate/rhythm, normal heart sounds Gastrointestinal Exam: soft, normal bowel sounds, No tenderness Back Exam: normal inspection, vertebral tenderness (Lumbar spinal and paraspinal area), muscle spasm, other (Straight leg raising test positive bilaterally at 45 degrees. Knee reflexes bilaterally 2+. Normal power bilaterally.), No normal range of motion, No CVA tenderness Extremity Exam: normal inspection, normal range of motion, pelvis stable Neurologic Exam: alert, oriented x 3, cooperative, roller mechanic II-XII nml as tested, nml station & gait Skin Exam: normal color SpO2 Interpretation: normal SpO2: 96 O2 Delivery: Room Air Ordered Tests: Medication Summary Discontinued Medications Generic Name Dose Route Start Last Admin Trade Name Freq PRN Reason Stop Dose Admin Hydromorphone HCl 1 mg 12/25/20 01:48 Hydromorphone 1 Mg/1ml Inj 1 Mg/Ml Syringe IM 12/25/20 01:49 STAT ONE Orphenadrine Citrate 60 mg 12/25/20 01:49 Orphenadrine Citrate 60 Mg/2 Ml Amp IM 12/25/20 01:50 STAT ONE - Progress Progress: improved, pain not gone completely, re-examined Progress Note: 12/25/20 is given pain medications along with muscle relaxant, reevaluation feeling better. Has mild decreased sensations of fine touch in both lower extremities which according to patient is chronic. Does not have any difficulty ambulation. Do not think cauda equina. Recommended taking muscle relaxants and outpatient follow-up with orthopedic/back surgery. Counseled pt/family regarding: diagnosis, need for follow-up - Departure Departure Disposition: Home Clinical Impression: Acute exacerbation of chronic low back pain Condition: Stable Critical Care Time: No Referrals: [facility]OS[facility] [Primary Care Provider] - Follow up/PCP as directed (Call in 2 days for reevaluation) Instructions: Low Back Pain ([facility]) Additional Instructions: Avoid lifting heavy objects. Follow-up with your primary care and neurosurgeon who operated on your back for reevaluation. Return to ER for worsening back pain, numbness weakness of lower extremities/loss of bowel or bladder control/perineal numbness. Prescriptions: Cyclobenzaprine HCl 10 mg [Flexeril 10 MG] 10 mg PO TID #30 tablet
[2020-12-25] MEDS ORDERED: Norflex 60 MG/2 ML ONE (02:01)
[2020-12-25] MEDS ORDERED: Hydromorphone 1 mg/ml Injection ONE (02:02)
== END 2020-12-25 03:13 | disposition home or self-care (01) ==
LOC: ED 01:15
DX: M54.50 Low back pain, unspecified (principal); M62.830 Muscle spasm of back; Z79.899 Other long term (current) drug therapy; Z72.0 Tobacco use; R20.2 Paresthesia of skin
CPT/HCPCS: 96372; 99284; J1170; J2360

== ENCOUNTER 2020-12-29 21:20 | Emergency (ER) | payer OTHER ==
[2020-12-29 22:15] LABS: Absolute Neutrophil Ct (ANC) 8.05 (1.4-6.9); BASOPHIL % 0.3 % (0.0-0.4); Basophil (Absolute #) 0.03 (0-0.4); Eosinophil % 0.9 % (0.00-5.0); Hematocrit 37.7 % (42-50); Hemoglobin 11.6 gm/dl (12.5-18.0); Lymphocyte (Absolute #) 2.02 (1.0-4.6); Lymphocytes % 18.5 % (24.0-44.0); Mean Cell Volume 91.7 fl (78-100); Mean Corpuscular Hemoglobin 28.2 pg (26-32); Mean Corpuscular Hgb Concent. 30.8 g/dl (32-36); Mean Platelet Volume 9.3 fl (7.5-11.0); Monocyte (Absolute #) 0.69 (0.0-1.3); Monocytes % 6.3 % (0.0-12.0); Platelet Count 224 K/mm3 (150-450); Red Blood Count 4.11 M/mm3 (4.1-5.6); Red Cell Distribution Width 15.7 % (11.5-14.0); White Blood Count 10.9 K/mm3 (4.0-10.5)
--- NOTE | 2020-12-29 22:23 | ERPHSYRPT ---
- History of Present Illness Time Seen by Provider: 12/29/20 21:30 Source: patient Exam Limitations: no limitations Patient Subjective Stated Complaint: Patient states " I was walking out to my shed and fell back on my butt. My legs gave out on me and then after it took me awhile to get up and I started walking back to house I became SOB. [facility]." Triage Nursing Assessment: Patient arrived to ED and ambulated back to room without difficulty. Patient A/O times 4. Patient able to follow instructions without difficulty. Patient was in ER on 12/25/20 for chronic back pain. [facility] stated the [facility] that he shouldn't wait till vadim to see MD in case he possibly had blood clot in leg. Patient states he doesn't really have any SOB at this time. Patient able to move all extremities without difficulty. Patient denies any chest pain. Patient denies hitting head and denies losing LOC. No warmth, redness or edema noted to bilateral lower extremities. Patient with no bruising or swelling to back/buttock. + Radial and pedal pulses noted bilateral. Patient denies having any aura before falling. No visual disturbances noted. Physician History: Patient is a 55-year-old male presents to our ED for evaluation of shortness of breath and a fall. Patient states that he was walking to his shed prior to arrival when his legs gave out. Patient fell backwards onto his bottom. Patient got up and walked to his home. Patient stated he was short of breath. [facility] to come to our [facility] to rule out PE. They were concerned that patient's fall and shortness of breath may be related to PE. Patient is a smoker. Patient has chronic back pain. NO acute change in his pain. Patient denies saddle anesthesia. No change in bowel bladder function. No recent back procedures. No fever. No BHT or LOC. No neck pain. Cervical spine cleared clinically. The fall was not associated with any neuro or cardiovascular symptomology. No BHT or LOC. Patient was last in our ED 4 days ago for back pain. Timing/Duration: today Severity: moderate Modifying Factors: Improves With: nothing Associated Symptoms: shortness of breath, No nausea, No vomiting, No diaphoresis, No cough, No chills, No chest pain, No fever, No headaches, No loss of appetite, No syncope, No seizure Allergies/Adverse Reactions: acetaminophen [From Vicodin] Allergy (Verified 12/29/20 21:30) Rash hydrocodone bitartrate [From Vicodin] Allergy (Verified 12/29/20 21:30) Rash Iodinated Contrast Media Allergy (Verified 12/29/20 21:30) ketorolac [From Toradol] Allergy (Verified 12/29/20 21:30) Penicillins Allergy (Verified 12/29/20 21:30) codeine Adverse Reaction (Verified 12/29/20 21:30) codeine phosphate [From Codar D] Adverse Reaction (Verified 12/29/20 21:30) morphine Adverse Reaction (Verified 12/29/20 21:30) pseudoephedrine HCl [From Codar D] Adverse Reaction (Verified 12/29/20 21:30) Home Medications: Aspirin 81 gm Chew [Baby Aspirin 81 mg Chew] 81 mg PO DAILY 04/11/14 [History] Ondansetron HCl [Zofran] 4 mg PO Q6HPRN 04/11/14 [History] Albuterol Sulfate [Proair Digihaler] 2 puff IH QID PRN 09/11/20 [History] Amitriptyline HCl 25 mg [Elavil 25 mg] 25 mg PO HS 09/11/20 [History] Amlodipine Besylate 10 mg PO HS 09/11/20 [History] Atorvastatin Calcium 1 tab PO HS 09/11/20 [History] Budesonide/Formoterol Fumarate [Budesonide-Formoterol 160-4.5] 2 puffs IH BID 09/11/20 [History] Clonazepam 2 mg PO Q5H PRN 09/11/20 [History] Cyclobenzaprine HCl 10 mg [Cyclobenzaprine 10 MG] 10 mg PO DAILY PRN 09/11/20 [History] Fluticasone Propionate [Flovent Diskus] 2 sprays IN DAILY 09/11/20 [History] Metoprolol Succinate 100 mg PO HS 09/11/20 [History] Nitroglycerin [Nitrolingual] 0.4 mg SL DAILY PRN 09/11/20 [History] PANTOPRAZOLE 40 mg Tablet [Protonix 40MG Tablet] 80 mg PO BID 09/11/20 [History] Ticagrelor [Brilinta] 90 mg PO BID 09/11/20 [History] Tiotropium Ottertail Inhaler [Spiriva 18 Mcg/Cap Inhaler] 2 puffs IH DAILY 09/11/20 [History] lisinopriL [Lisinopril] 40 mg PO HS 09/11/20 [History] Hx Tetanus, Diphtheria Vaccination/Date Given: No (unsure) Hx Influenza Vaccination/Date Given: No Hx Pneumococcal Vaccination/Date Given: No Immunizations Up to Date: Yes Travel Risk - International Travel Have you traveled outside of the country in past 3 weeks: No (N) If Yes, where;: N - Coronavirus Screening Close contact with a COVID-19 positive Pt in past 14-21 Days: No - Vaccine Status Have you recieved a Covid-19 vaccination: Yes Immigration Inspector: Unknown - Vaccination Dates Date of 2cond Vaccination (if applicable): unknown Dates if Unknown: "few months" - Review of Systems Constitutional: No Symptoms, No Fever, No Chills Eyes: No Symptoms Ears, Nose, & Throat: No Symptoms Respiratory: No Symptoms, No Cough, No Dyspnea Cardiac: No Symptoms, No Chest Pain, No Edema, No Syncope Abdominal/Gastrointestinal: No Symptoms, No Abdominal Pain, No Nausea, No Vomiting, No Diarrhea Genitourinary Symptoms: No Symptoms, No Dysuria Musculoskeletal: No Symptoms, No Back Pain, No Neck Pain Skin: No Symptoms, No Rash Neurological: No Symptoms, No Dizziness, No Focal Weakness, No Sensory Changes Psychological: No Symptoms Endocrine: No Symptoms Hematologic/Lymphatic: No Symptoms Immunological/Allergic: No Symptoms All Other Systems: Reviewed and Negative - Past Medical History Pertinent Past Medical History: Yes Neurological History: No Pertinent History, TIA ENT History: No Pertinent History Cardiac History: Aneurysm, Coronary Artery Disease, Hypertension Respiratory History: COPD, Emphysema, Sleep Apnea, Other Endocrine Medical History: No Pertinent History Musculoskeletal History: No Pertinent History GI Medical History: No Pertinent History History: No Pertinent History Psycho-Social History: Anxiety Male Reproductive Disorders: No Pertinent History Other Medical History: Right lung pnuemo, CHRONIC BACK PAIN. KIDNEY STONES - Past Surgical History Past Surgical History: Yes Neuro Surgical History: No Pertinent History Cardiac: No Pertinent History, Cardiac Catheterization, Cardiac Stent Respiratory: Other Gastrointestinal: No Pertinent History Genitourinary: No Pertinent History Musculoskeletal: Orthopedic Surgery Male Surgical History: No Pertinent History Other Surgical History: R lung cut a 1/4 off the top. 1988, back surgery , inspire placement - Social History Smoking Status: Current every day smoker How long have you smoked: 30 years Exposure to second hand smoke: No Drug Use: none Patient Lives Alone: No - Nursing Vital Signs Nursing Vital Signs: Initial Vital Signs Temperature 98.7 F 12/29/20 21:20 Pulse Rate 98 H 12/29/20 21:20 Respiratory Rate 20 12/29/20 21:20 Blood Pressure 162/95 12/29/20 21:20 O2 Sat by Pulse Oximetry 98 12/29/20 21:20 Pain Scale Pain Intensity 6 - Physical Exam General Appearance: no apparent distress, alert Eye Exam: PERRL/EOMI, eyes nml inspection Ears, Nose, Throat Exam: normal ENT inspection, TMs normal, pharynx normal, moist mucous membranes Neck Exam: normal inspection, non-tender, supple, full range of motion Respiratory Exam: normal breath sounds, lungs clear, airway intact, No respiratory distress Cardiovascular Exam: regular rate/rhythm, normal heart sounds, normal peripheral pulses Gastrointestinal/Abdomen Exam: soft, normal bowel sounds, No tenderness, No mass Back Exam: normal inspection, normal range of motion, No CVA tenderness, No vertebral tenderness Extremity Exam: normal inspection, normal range of motion, pelvis stable Neurologic Exam: alert, oriented x 3, cooperative, normal mood/affect, sensation nml, No motor deficits Skin Exam: normal color, warm, dry, No rash Lymphatic Exam: No adenopathy SpO2 Interpretation: normal SpO2: 96 O2 Delivery: Room Air - Course Nursing assessment & vital signs reviewed: Yes EKG Interpreted by Me: RATE (73), Sinus Rhythm, NORMAL AXIS, NORMAL INTERVALS - CT Exams Lumbar Spine CT Interpretation: Tele-radiologist Report (No fractures or dislocations identified involving the lumbar spine.) Ordered Tests: Active Orders 24 hr Category Date Time Status Instructor Traffic Safety STAT Care 12/29/20 21:50 Active EKG-ER Only STAT Care 12/29/20 21:49 Active Pulse Oximetry (ED) STAT Care 12/29/20 21:49 Active LUMBAR SPINE W/O [CT] Stat Exams 12/29/20 23:57 Taken CBC W DIFF Stat Lab 12/29/20 22:10 Completed CMP Stat Lab 12/29/20 22:10 Completed D-DIMER QUANTITATIVE Stat Lab 12/29/20 22:10 Completed TROPONIN Q3H Lab 12/29/20 22:10 Completed TROPONIN Q3H Lab 12/30/20 01:04 Completed TROPONIN Q3H Lab 12/30/20 04:00 Ordered TROPONIN Q3H Lab 12/30/20 07:00 Ordered TROPONIN Q3H Lab 12/30/20 10:00 Ordered Medication Summary Discontinued Medications Generic Name Dose Route Start Last Admin Trade Name Gilles PRN Reason Stop Dose Admin Dexamethasone Sodium Phosphate 8 mg 12/29/20 22:57 12/29/20 23:12 Dexamethasone Sod Phosphate 10 Mg/Ml IM 12/29/20 22:58 Not Given STAT ONE Dexamethasone Sodium Phosphate Confirm 12/29/20 22:58 Dexamethasone Sod Phosphate 10 Mg/Ml Administered 12/29/20 22:59 Dose 10 mg .ROUTE .STK-MED ONE Droperidol 2.5 mg 12/29/20 22:53 12/29/20 23:11 Droperidol 5 Mg/2 Ml Vial IV 12/29/20 22:54 2.5 mg STAT ONE Administration Droperidol Confirm 12/29/20 22:58 Droperidol 5 Mg/2 Ml Vial Administered 12/29/20 22:59 Dose 5 mg .ROUTE .STK-MED ONE Lab/Rad Data: Laboratory Result Diagrams 12/29/20 22:10 12/29/20 22:10 Laboratory Results 12/30/20 12/29/20 12/29/20 Range/Units 01:04 22:10 22:10 WBC (4.0-10.5) K/mm3 RBC (4.1-5.6) M/mm3 Hgb (12.5-18.0) gm/dl Hct (42-50) % MCV (78-100) fl MCH (26-32) pg MCHC (32-36) g/dl RDW (11.5-14.0) % Plt Count (150-450) K/mm3 MPV (7.5-11.0) fl Gran % (36.0-66.0) % Eos # (Auto) (0-0.5) Absolute Lymphs (auto) (1.0-4.6) Absolute Monos (auto) (0.0-1.3) Lymphocytes % (24.0-44.0) % Monocytes % (0.0-12.0) % Eosinophils % (0.00-5.0) % Basophils % (0.0-0.4) % Absolute Granulocytes (1.4-6.9) Basophils # (0-0.4) D-Dimer 265 (215-500) ng/mL Sodium (137-145) mmol/L Potassium (3.5-5.1) mmol/L Chloride (98-107) mmol/L Carbon Dioxide (22-30) mmol/L Anion Gap (5-15) MEQ/L BUN (9-20) mg/dL Creatinine (0.66-1.25) mg/dL Estimated GFR ML/MIN Glucose (74-106) mg/dL Calcium (8.4-10.2) mg/dL Total Bilirubin (0.2-1.3) mg/dL AST (17-59) U/L ALT (0-50) U/L Alkaline Phosphatase (38-126) U/L Troponin I 0.014 0.014 (0.000-0.034) ng/mL Serum Total Protein (6.3-8.2) g/dL Albumin (3.5-5.0) g/dL 12/29/20 12/29/20 Range/Units 22:10 22:10 WBC 10.9 H (4.0-10.5) K/mm3 RBC 4.11 (4.1-5.6) M/mm3 Hgb 11.6 L (12.5-18.0) gm/dl Hct 37.7 L (42-50) % MCV 91.7 (78-100) fl MCH 28.2 (26-32) pg MCHC 30.8 L (32-36) g/dl RDW 15.7 H (11.5-14.0) % Plt Count 224 (150-450) K/mm3 MPV 9.3 (7.5-11.0) fl Gran % 74.0 H (36.0-66.0) % Eos # (Auto) 0.10 (0-0.5) Absolute Lymphs (auto) 2.02 (1.0-4.6) Absolute Monos (auto) 0.69 (0.0-1.3) Lymphocytes % 18.5 L (24.0-44.0) % Monocytes % 6.3 (0.0-12.0) % Eosinophils % 0.9 (0.00-5.0) % Basophils % 0.3 (0.0-0.4) % Absolute Granulocytes 8.05 H (1.4-6.9) Basophils # 0.03 (0-0.4) D-Dimer (215-500) ng/mL Sodium 142 (137-145) mmol/L Potassium 4.3 (3.5-5.1) mmol/L Chloride 107 (98-107) mmol/L Carbon Dioxide 27 (22-30) mmol/L Anion Gap 12.3 (5-15) MEQ/L BUN 19 (9-20) mg/dL Creatinine 1.45 H (0.66-1.25) mg/dL Estimated GFR 53.5 ML/MIN Glucose 92 (74-106) mg/dL Calcium 9.0 (8.4-10.2) mg/dL Total Bilirubin 0.40 (0.2-1.3) mg/dL AST 25 (17-59) U/L ALT 15 (0-50) U/L Alkaline Phosphatase 103 (38-126) U/L Troponin I (0.000-0.034) ng/mL Serum Total Protein 7.2 (6.3-8.2) g/dL Albumin 4.1 (3.5-5.0) g/dL - Progress Progress: improved Progress Note: D-dimer negative. Chest x-ray ordered. Patient refused chest x-ray. Patient refused Lidoderm patch. 12/29/20 22:47 Patient refused Decadron 12/29/20 23:11 Patient states he took 2500 mg of Tylenol at 7 PM. However he reports an allergy to acetaminophen. Acetaminophen is on patient allergy profile. Patient also states he took a muscle relaxer at 7 PM. Patient was in our ED on 12/25/2020 at which time he received Dilaudid. Patient was in our ED on 12/10/2020 at which time he received Dilaudid. Patient was in our ED on 09/11/2020 at which time he received Dilaudid. Patient overdosed on narcotics on 04/11/2014. Patient is allergic to practically every analgesic except Dilaudid. Patient refusing other means of pain control to treat his chronic low back pain. 12/29/20 23:33 Counseled pt/family regarding: lab results, diagnosis, need for follow-up, rad results - Departure Departure Disposition: Home Clinical Impression: Fall, SOB (shortness of breath), Chronic renal insufficiency Condition: Stable Critical Care Time: No Referrals: [facility]OSPITAL,'S [Primary Care Provider] - Follow up/PCP as directed Additional Instructions: Discharge/Care Plan DONTE ROBLESNIDIA TRINH was seen on 12/29/20 in the Emergency Room. The patient was counseled regarding Diagnosis,Lab results, Imaging studies, need for follow up and when to return to the Emergency Room. Prescriptions given: Discharge Note I have spoken with the patient and/or caregivers. I have explained the patient's condition, diagnosis and treatment plan based on the information available to me at this time. I have answered the patient's and/or caregiver's questions and addressed any concerns. The patient and/or caregivers have as good understanding of the patient's diagnosis, condition and treatment plan as can be expected at this point. The vital signs have been stable. The patient's condition is stable and appropriate for discharge from the emergency department. The patient will pursue further outpatient evaluation with the primary care physician or other designated or consulting physician as outlined in the discharge instructions. The patient and/or caregivers are agreeable to this plan of care and follow-up instructions have been explained in detail. The patient and/or caregivers have received these instruction. The patient/and or caregivers are aware that any significant change in condition or worsening of symptoms should prompt an immediate return to this or the closest emergency department or call 911.
[2020-12-29 22:31] LABS: ALBUMIN 4.1 g/dL (3.5-5.0); ANION GAP 12.3 MEQ/L (5-15); BILIRUBIN,TOTAL 0.4 mg/dL (0.2-1.3); Creatinine 1 1.45 mg/dL (0.66-1.25); EST GLOMERULAR FILTRATION RATE 53.5 ML/MIN; Potassium 4.3 mmol/L (3.5-5.1); Total Protein 7.2 g/dL (6.3-8.2)
[2020-12-29] MEDS ORDERED: Inapsine 5 MG/2 ML IV ONE (22:53)
[2020-12-29] MEDS ORDERED: DECADRON 10MG INJ. IM ONE (22:57)
[2020-12-29] MEDS ORDERED: DECADRON 10MG INJ. ONE (22:58)
[2020-12-29] MEDS ORDERED: Inapsine 5 MG/2 ML ONE (22:58)
[2020-12-30] MEDS ORDERED: Hydromorphone 1 mg/ml Injection IV ONE (01:49)
[2020-12-30] MEDS ORDERED: Hydromorphone 1 mg/ml Injection IM ONE (01:52)
[2020-12-30] MEDS ORDERED: Hydromorphone 1 mg/ml Injection ONE (01:54)
--- NOTE | 2020-12-30 08:46 | XRAY ---
Indication: Low back pain following fall. Multiple contiguous axial images obtained through the lumbar spine. Sagittal and coronal reformatted images obtained. Comparison: September 11, 2020. Axial images negative for acute fracture, suspicious bony lesions, or spinal canal stenosis. Stable L4-L5 fusion with intact bilateral posterior fusion hardware and intervertebral spacer. Sagittal and coronal reformatted images again demonstrates normal lumbar alignment with vertebral body heights/disc spaces maintained. No acute compression fracture or subluxation. Visualized noncontrasted soft tissues again demonstrates scattered vascular calcifications. Impression: Stable L4-L5 posterior fusion surgery and scattered arteriosclerotic disease. No new/acute abnormalities. Comment: Preliminary interpretation made by [facility]. No critical discrepancy.
[2021-01-03 16:54] VITALS: BP 125/88; PULSE 82; O2SAT 98
== END 2020-12-30 02:09 | disposition home or self-care (01) ==
LOC: ED 21:20
DX: R06.02 Shortness of breath (principal); I12.9 Hypertensive chronic kidney disease with stage 1 through stage 4 chronic kidney disease, or unspecified chronic kidney disease; N18.9 Chronic kidney disease, unspecified; Z72.0 Tobacco use; W18.39XA Other fall on same level, initial encounter; Y92.007 Garden or yard of unspecified non-institutional (private) residence as the place of occurrence of the external cause; Z79.899 Other long term (current) drug therapy
CPT/HCPCS: 36415; 72131; 80053; 84484; 85025; 85379; 93005; 93041; 94760; 96372; 99284; J1100; J1170

== ENCOUNTER 2021-03-15 14:57 | Emergency (ER) | payer OTHER ==
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
[2021-03-15] MEDS ORDERED: Zofran 4 MG/2 ML VIAL IV ONE (15:25)
[2021-03-15] MEDS ORDERED: Ativan 2 MG/1 ML VIAL IV ONE ×2 (15:26→17:59)
[2021-03-15] MEDS ORDERED: Zofran 4 MG/2 ML VIAL ONE (15:37)
[2021-03-15] MEDS ORDERED: Ativan 2 MG/1 ML VIAL ONE ×2 (15:38→18:01)
[2021-03-15 16:03] LABS: ACETAMINOPHEN < 10 ug/ml (10-30); ALBUMIN 4.7 g/dL (3.5-5.0); ALKALINE PHOSPHATASE 157 U/L (38-126); ANION GAP 24.4 MEQ/L (5-15); BLOOD UREA NITROGEN 14 mg/dL (9-20); CHLORIDE 100 mmol/L (98-107); Calcium 10.3 mg/dL (8.4-10.2); Carbon Dioxide 21 mmol/L (22-30); EST GLOMERULAR FILTRATION RATE 29.9 ML/MIN; ETHYL ALCOHOL < 10 mg/dL (0-10); Glucose 104 mg/dL (74-106); Potassium 3.3 mmol/L (3.5-5.1); SALICYLATE < 1.0 mg/dL (2-20); SGOT/AST 33 U/L (17-59); SODIUM 142 mmol/L (137-145); Total Protein 8.8 g/dL (6.3-8.2)
[2021-03-15 16:09] LABS: SGPT/ALT 26 U/L (0-50)
[2021-03-15 16:12] LABS: Basophil (Absolute #) 0.02 (0-0.4); Eosinophil (Absolute #) 0 (0-0.5); Hematocrit 41.8 % (42-50); Hemoglobin 13.5 gm/dl (12.5-18.0); Lymphocyte (Absolute #) 1.45 (1.0-4.6); Mean Cell Volume 87.3 fl (78-100); Mean Corpuscular Hemoglobin 28.2 pg (26-32); Mean Corpuscular Hgb Concent. 32.3 g/dl (32-36); Mean Platelet Volume 9.4 fl (7.5-11.0); Monocyte (Absolute #) 1.07 (0.0-1.3); Monocytes % 7.4 % (0.0-12.0); Neutrophil % 82.5 % (36.0-66.0); Platelet Count 329 K/mm3 (150-450); Red Blood Count 4.79 M/mm3 (4.1-5.6); Red Cell Distribution Width 16.3 % (11.5-14.0); White Blood Count 14.4 K/mm3 (4.0-10.5)
[2021-03-15 16:29] LABS: Appearance CLOUDY (CLEAR); Bilirubin NEGATIVE (NEGATIVE); Blood NEGATIVE Ery/ul (0-5); Glucose NEGATIVE (NEGATIVE); Ketones NEGATIVE (NEGATIVE); Leukocyte Esterase NEGATIVE (NEGATIVE); Mucus MANY /HPF (NEGATIVE); Nitrite NEGATIVE (NEGATIVE); Protein,Urine Dip 100 (Negative); Specific Gravity 1.023 (1.005-1.025); Urobilinogen 2 mg/dL (0-1)
[2021-03-15 16:33] LABS: Amphetamine,Urine NEGATIVE (NEGATIVE); Barbiturate,Urine NEGATIVE (NEGATIVE); Benzodiazepine,Urine NEGATIVE (NEGATIVE); Cocaine,Urine NEGATIVE (NEGATIVE); Methadone,Urine NEGATIVE (NEGATIVE); Opiate,Urine NEGATIVE (NEGATIVE); PCP,Urine NEGATIVE (NEGATIVE); THC,Urine NEGATIVE (NEGATIVE)
--- NOTE | 2021-03-15 16:45 | XRAY ---
Indication: Confusion. Hallucinations. Multiple contiguous axial images obtained through the head without contrast. Comparison: December 10, 2020. Normal appearing brain parenchyma, ventricles, and bony calvarium for patient's age. Visualized paranasal sinuses and mastoid air cells are clear. Impression: Continued normal CT head without contrast exam.
[2021-03-15 16:52] LABS: COVID AG -BINAX NOW RAPID TEST NEGATIVE (NEGATIVE)
[2021-03-15] MEDS ORDERED: BENADRYL 50 MG/ML IV ONE (18:33)
[2021-03-15] MEDS ORDERED: BENADRYL 50 MG/ML IM ONE (18:41)
[2021-03-15] MEDS ORDERED: BENADRYL 50 MG/ML ONE (18:43)
[2021-03-15] MEDS ORDERED: Haldol 5 MG IM ONE ×3 (19:16→20:20)
[2021-03-15] MEDS ORDERED: Haldol 5 MG ONE ×2 (19:20→20:24)
[2021-03-15] MEDS ORDERED: BACIGUENT PACKET ONE (19:29)
[2021-03-15 20:52] VITALS: BP 122/71; PULSE 60; O2SAT 96
== END 2021-03-15 21:50 | disposition short-term general hospital (02) ==
LOC: ED 14:57
DX: R46.89 Other symptoms and signs involving appearance and behavior (principal); R44.1 Visual hallucinations; R44.0 Auditory hallucinations; F13.932 Sedative, hypnotic or anxiolytic use, unspecified with withdrawal with perceptual disturbances; I10 Essential (primary) hypertension; K21.9 Gastro-esophageal reflux disease without esophagitis; E78.5 Hyperlipidemia, unspecified; F41.0 Panic disorder [episodic paroxysmal anxiety]; J44.9 Chronic obstructive pulmonary disease, unspecified; Z72.0 Tobacco use; Z79.899 Other long term (current) drug therapy; I25.10 Atherosclerotic heart disease of native coronary artery without angina pectoris; S01.112A Laceration without foreign body of left eyelid and periocular area, initial encounter; S01.21XA Laceration without foreign body of nose, initial encounter; Y35.893A Legal intervention involving other specified means, suspect injured, initial encounter; Y92.538 Other ambulatory health services establishments as the place of occurrence of the external cause
CPT/HCPCS: 12013; 36000; 36415; 70450; 80053; 80307; 81001; 85025; 87086; 93005; 94760; 96372; 96374; 96375; 99000; 99285; G0480; J1200; J1630; J2060; J2405; A9270-GY

== ENCOUNTER 2021-03-22 02:23 | Emergency (ER) | payer OTHER ==
[2021-03-22 02:54] VITALS: O2SAT 98
--- NOTE | 2021-03-22 03:24 | ERPHSYRPT ---
- History of Present Illness Time Seen by Provider: 03/22/21 02:40 Source: patient Exam Limitations: no limitations Patient Subjective Stated Complaint: pt states he had a panic attack and punched the floor. c/o pain in his rt hand Triage Nursing Assessment: pt alert and oriented, answers questions approp. pt ambulatory with steady gait noted. respirations nonlabored. skin wrm an ddry. mild swelling and bruising noted to rt hand. abrasion to knuckles on rt hand with small amt of bleeding noted. pt moves fingers without diff Physician History: 55-year-old male presents to our ED for hand x-ray. Patient states he was anxious and he punched the floor. Patient has an abrasion to the third knuckle of the right hand. Injury occurred prior to arrival. Patient said he was just frustrated. Patient declined pain medication. Patient states he just wants to make sure that it has not fractured. Injury occurred just prior to arrival. Patient denies other injuries. No elbow pain no wrist pain. No BHT or LOC. No chest pain or shortness of breath. No nausea vomiting diaphoresis. Patient voices no other complaints or concerns at this time. Occurred: just prior to arrival Method of Injury: direct blow Quality: aching Severity of Pain-Max: moderate Severity of Pain-Current: mild Extremities Pain Location: hand: right Modifying Factors: Improves With: movement Associated Symptoms: none Allergies/Adverse Reactions: acetaminophen [From Vicodin] Allergy (Verified 03/22/21 03:14) Rash hydrocodone bitartrate [From Vicodin] Allergy (Verified 03/22/21 03:14) Rash Iodinated Contrast Media Allergy (Verified 03/22/21 03:14) ketorolac [From Toradol] Allergy (Verified 03/22/21 03:14) Penicillins Allergy (Verified 03/22/21 03:14) codeine Adverse Reaction (Verified 03/22/21 03:14) codeine phosphate [From Codar D] Adverse Reaction (Verified 03/22/21 03:14) morphine Adverse Reaction (Verified 03/22/21 03:14) pseudoephedrine HCl [From Codar D] Adverse Reaction (Verified 03/22/21 03:14) Home Medications: Aspirin 81 gm Chew [Baby Aspirin 81 mg Chew] 81 mg PO DAILY 04/11/14 [History] ondansetron HCL [Zofran] 4 mg PO Q6HPRN 04/11/14 [History] Albuterol Sulfate [Proair Digihaler] 2 puff IH QID PRN 09/11/20 [History] Amitriptyline HCl 25 mg [Elavil 25 mg] 25 mg PO HS 09/11/20 [History] Amlodipine Besylate 10 mg PO HS 09/11/20 [History] Atorvastatin Calcium 1 tab PO HS 09/11/20 [History] Budesonide/Formoterol Fumarate [Budesonide-Formoterol 160-4.5] 2 puffs IH BID 09/11/20 [History] Cyclobenzaprine HCl 10 mg [Cyclobenzaprine 10 MG] 10 mg PO DAILY PRN 09/11/20 [History] Fluticasone Propionate [Flovent Diskus] 2 sprays IN DAILY 09/11/20 [History] Metoprolol Succinate 100 mg PO HS 09/11/20 [History] Nitroglycerin [Nitrolingual] 0.4 mg SL DAILY PRN 09/11/20 [History] PANTOPRAZOLE 40 mg Tablet [Protonix 40MG Tablet] 80 mg PO BID 09/11/20 [History] Ticagrelor [Brilinta] 90 mg PO BID 09/11/20 [History] Tiotropium [place] Inhaler [Spiriva 18 Mcg/Cap Inhaler] 2 puffs IH DAILY 09/11/20 [History] clonazePAM [Clonazepam] 2 mg PO Q5H PRN 09/11/20 [History] lisinopriL [Lisinopril] 40 mg PO HS 09/11/20 [History] Hx Tetanus, Diphtheria Vaccination/Date Given: Yes (unsure) Hx Influenza Vaccination/Date Given: No Hx Pneumococcal Vaccination/Date Given: No Immunizations Up to Date: Yes Travel Risk - International Travel Have you traveled outside of the country in past 3 weeks: No - Coronavirus Screening Are you exhibiting any of the following symptoms?: No Close contact with a COVID-19 positive Pt in past 14-21 Days: No - Vaccine Status Have you recieved a Covid-19 vaccination: Yes 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: 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 - Vaccination Dates Date of 2cond Vaccination (if applicable): 2020 Comment: booster recently - Review of Systems Constitutional: No Symptoms, No Fever, No Chills Eyes: No Symptoms Ears, Nose, & Throat: No Symptoms Respiratory: No Symptoms, No Cough, No Dyspnea Cardiac: No Symptoms, No Chest Pain, No Edema, No Syncope Abdominal/Gastrointestinal: No Symptoms, No Abdominal Pain, No Nausea, No Vomiting, No Diarrhea Genitourinary Symptoms: No Symptoms, No Dysuria Musculoskeletal: No Symptoms, No Back Pain, No Neck Pain Skin: No Symptoms, No Rash Neurological: No Symptoms, No Dizziness, No Focal Weakness, No Sensory Changes Psychological: No Symptoms Endocrine: No Symptoms Hematologic/Lymphatic: No Symptoms Immunological/Allergic: No Symptoms All Other Systems: Reviewed and Negative - Past Medical History Pertinent Past Medical History: Yes Neurological History: No Pertinent History, TIA ENT History: No Pertinent History Cardiac History: Aneurysm, Coronary Artery Disease, Hypertension, Myocardial Infarction ([place]) Respiratory History: COPD, Emphysema, Sleep Apnea, Other Endocrine Medical History: No Pertinent History Musculoskeletal History: No Pertinent History GI Medical History: No Pertinent History History: No Pertinent History Psycho-Social History: Anxiety Male Reproductive Disorders: No Pertinent History Other Medical History: Right lung pnuemo, CHRONIC BACK PAIN. KIDNEY STONES - Past Surgical History Past Surgical History: Yes Neuro Surgical History: No Pertinent History Cardiac: No Pertinent History, Cardiac Catheterization, Cardiac Stent Respiratory: Other Gastrointestinal: No Pertinent History Genitourinary: No Pertinent History Musculoskeletal: Orthopedic Surgery Male Surgical History: No Pertinent History Other Surgical History: R lung cut a 1/4 off the top. 1988, back surgery , inspire placement, rt leg fx - Social History Smoking Status: Current every day smoker How long have you smoked: 30 years Exposure to second hand smoke: No Drug Use: none Patient Lives Alone: No - Nursing Vital Signs Nursing Vital Signs: Initial Vital Signs Temperature 98.4 F 03/22/21 02:33 Pulse Rate 94 H 03/22/21 02:33 Respiratory Rate 16 03/22/21 02:33 Blood Pressure 151/95 03/22/21 02:33 O2 Sat by Pulse Oximetry 98 03/22/21 02:33 Pain Scale Pain Intensity 8 - Physical Exam General Appearance: no apparent distress, alert Eyes, Ears, Nose, Throat Exam: moist mucous membranes Neck Exam: normal inspection, non-tender, supple Cardiovascular/Respiratory Exam: chest non-tender, normal breath sounds, regular rate/rhythm, heart sounds normal, no respiratory distress Abdominal Exam: non-tender, soft, no organomegaly, no hernia, No guarding Back Exam: normal inspection, normal range of motion, No CVA tenderness, No vertebral tenderness Shoulder Exam: normal inspection, no evidence of injury, normal ROM Elbow/Forearm Exam: normal inspection, non-tender, no evidence of injury, normal ROM Wrist Exam: normal inspection, non-tender, no evidence of injury, normal ROM Hand Exam: normal ROM (2 to 3 mm superficial abrasion to the third digit knuckle. No deformity.), abrasions, bone tenderness, No laceration, No limited ROM Neuro/Tendon Exam: normal sensation, normal motor functions Mental Status Exam: alert, oriented x 3, cooperative Skin Exam: normal color, warm, dry SpO2 Interpretation: normal SpO2: 98 O2 Delivery: Room Air - Course Nursing assessment & vital signs reviewed: Yes - Radiology Exams Hand X-ray Interpretation: Interpreted by me (No fracture dislocations. No soft tissue abnormalities.) Ordered Tests: Active Orders 24 hr Category Date Time Status HAND (MINIMUM 3 VIEWS) Stat Exams 03/22/21 Taken - Progress Progress: improved Progress Note: Patient reassessed. Patient resting comfortably. Patient declined pain medication. X-ray negative for fracture dislocation. There is a small abrasion to the knuckle of the long finger. No indication for suture repair. Patient otherwise denies wrist elbow shoulder pain. Patient has no other complaints at this time. Patient states is ready for discharge. Portions of this note were created with voice recognition technology. There may be grammatical, spelling, punctuation or sound alike errors 03/22/21 03:29 Counseled pt/family regarding: diagnosis, need for follow-up, rad results - Departure Departure Disposition: Home Clinical Impression: Hand abrasion, Hand contusion Condition: Stable Critical Care Time: No Referrals: [facility]OSP[facility],'S [Primary Care Provider] - Follow up/PCP as directed Additional Instructions: Discharge/Care Plan NIDIA KENT JR was seen on 03/22/21 in the Emergency Room. The patient was counseled regarding Diagnosis,Lab results, Imaging studies, need for follow up and when to return to the Emergency Room. Prescriptions given: Discharge Note I have spoken with the patient and/or caregivers. I have explained the patient's condition, diagnosis and treatment plan based on the information available to me at this time. I have answered the patient's and/or caregiver's questions and addressed any concerns. The patient and/or caregivers have as good understanding of the patient's diagnosis, condition and treatment plan as can be expected at this point. The vital signs have been stable. The patient's condition is stable and appropriate for discharge from the emergency department. The patient will pursue further outpatient evaluation with the primary care physician or other designated or consulting physician as outlined in the discharge instructions. The patient and/or caregivers are agreeable to this plan of care and follow-up instructions have been explained in detail. The patient and/or caregivers have received these instruction. The patient/and or caregivers are aware that any significant change in condition or worsening of symptoms autumn uld prompt an immediate return to this or the closest emergency department or call 911.
[2021-03-22 03:26] VITALS: BP 134/85; PULSE 92
--- NOTE | 2021-03-22 08:58 | XRAY ---
Indication: Pain following injury. Comparison: None 3 view right hand obtained. No bony, articular, or soft tissue abnormalities.
== END 2021-03-22 03:42 | disposition home or self-care (01) ==
LOC: ED 02:23
DX: S60.031A Contusion of right middle finger without damage to nail, initial encounter (principal); S60.412A Abrasion of right middle finger, initial encounter; W22.8XXA Striking against or struck by other objects, initial encounter; I25.10 Atherosclerotic heart disease of native coronary artery without angina pectoris; I10 Essential (primary) hypertension; J43.9 Emphysema, unspecified; Z72.0 Tobacco use
CPT/HCPCS: 73130; 99283

== ENCOUNTER 2021-03-30 01:27 | Observation (INO) | payer OTHER ==
[2021-03-30] MEDS ORDERED: Sodium Chloride 0.9% 1000 ML 1,000 ML IV SCH (02:00)
--- NOTE | 2021-03-30 02:03 | ERPHSYRPT ---
- History of Present Illness Time Seen by Provider: 03/30/21 01:45 Source: patient Exam Limitations: no limitations Patient Subjective Stated Complaint: pt states "I have a headache. 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 Patient states he has a history of TIA. [facility] He called the [facility] and they advised him to come to the nearest emergency department for evaluation. Patient also complains of decreased sensation to the right arm. Patient's headache is global. Patient states while he was experiencing his symptoms he experienced weakness of the lower extremities. Patient was descending stairs and felt his legs to be wobbly. No fall. No trauma. No fever. No BHT or LOC. No neck pain. Patient voices no other complaints or concerns at this time. Timing/Duration: today Severity: moderate Modifying Factors: Improves With: nothing Associated Symptoms: headaches, No nausea, No vomiting Allergies/Adverse Reactions: acetaminophen [From Vicodin] Allergy (Verified 03/30/21:29) Rash hydrocodone bitartrate [From Vicodin] Allergy (Verified 03/30/21:29) Rash Iodinated Contrast Media Allergy (Verified 03/30/21:29) ketorolac [From Toradol] Allergy (Verified 03/30/21:29) Penicillins Allergy (Verified 03/30/21:29) codeine Adverse Reaction (Verified 03/30/21:) codeine phosphate [From Codar D] Adverse Reaction (Verified 03/30/21:29) morphine Adverse Reaction (Verified 03/30/21:29) pseudoephedrine HCl [From Codar D] Adverse Reaction (Verified 03/30/21:29) Home Medications: Aspirin 81 gm Chew [Baby Aspirin 81 mg Chew] 81 mg PO DAILY 04/11/14 [History] ondansetron HCL [Zofran] 4 mg PO Q6HPRN 04/11/14 [History] Albuterol Sulfate [Proair Digihaler] 2 puff IH QID PRN 09/11/20 [History] Atorvastatin Calcium 1 tab PO HS 09/11/20 [History] Budesonide/Formoterol Fumarate [Budesonide-Formoterol 160-4.5] 2 puffs IH BID 09/11/20 [History] Fluticasone Propionate [Flovent Diskus] 2 sprays IN DAILY 09/11/20 [History] Nitroglycerin [Nitrolingual] 0.4 mg SL DAILY PRN 09/11/20 [History] PANTOPRAZOLE 40 mg Tablet [Protonix 40MG Tablet] 80 mg PO BID 09/11/20 [History] Ticagrelor [Brilinta] 90 mg PO BID 09/11/20 [History] Tiotropium [place] Inhaler [Spiriva 18 Mcg/Cap Inhaler] 2 puffs IH DAILY 09/11/20 [History] clonazePAM [Clonazepam] 2 mg PO Q5H PRN 09/11/20 [History] lisinopriL [Lisinopril] 2.5 mg PO DAILY 09/11/20 [History] Cholecalciferol (Vitamin D3) [Vitamin D3] 125 mcg PO DAILY 03/22/21 [History] Cyanocobalamin 500 Mcg [Vitamin B-12 500 MCG] 1,000 mcg PO DAILY 03/22/21 [History] Loratadine 10 mg [Claritin 10 mg] 10 mg PO DAILY 03/22/21 [History] Ranolazine 500 MG [Ranexa 500 MG] 500 mg PO BID 03/22/21 [History] Hx Tetanus, Diphtheria Vaccination/Date Given: Yes (unsure) Hx Influenza Vaccination/Date Given: No Hx Pneumococcal Vaccination/Date Given: No Travel Risk - International Travel Have you traveled outside of the country in past 3 weeks: No - Coronavirus Screening Are you exhibiting any of the following symptoms?: No Close contact with a COVID-19 positive Pt in past 14-21 Days: No - Vaccine Status Have you recieved a Covid-19 vaccination: Yes Training Developer: 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 - Vaccination Dates Date of 2cond Vaccination (if applicable): 2020 Comment: booster recently - Review of Systems Constitutional: No Symptoms, No Fever, No Chills Eyes: No Symptoms Ears, Nose, & Throat: No Symptoms Respiratory: No Symptoms, No Cough, No Dyspnea Cardiac: No Symptoms, No Chest Pain, No Edema, No Syncope Abdominal/Gastrointestinal: No Symptoms, No Abdominal Pain, No Nausea, No Vomiting, No Diarrhea Genitourinary Symptoms: No Symptoms, No Dysuria Musculoskeletal: No Symptoms, No Back Pain, No Neck Pain Skin: No Symptoms, No Rash Neurological: No Symptoms, No Dizziness, No Focal Weakness, No Sensory Changes Psychological: No Symptoms Endocrine: No Symptoms Hematologic/Lymphatic: No Symptoms Immunological/Allergic: No Symptoms All Other Systems: Reviewed and Negative - Past Medical History Pertinent Past Medical History: Yes Neurological History: No Pertinent History, TIA ENT History: No Pertinent History Cardiac History: Aneurysm, Coronary Artery Disease, Hypertension, Myocardial Infarction ([place]) Respiratory History: COPD, Emphysema, Sleep Apnea, Other Endocrine Medical History: No Pertinent History Musculoskeletal History: No Pertinent History GI Medical History: No Pertinent History History: No Pertinent History Psycho-Social History: Anxiety Male Reproductive Disorders: No Pertinent History Other Medical History: Right lung pnuemo, CHRONIC BACK PAIN. KIDNEY STONES - Past Surgical History Past Surgical History: Yes Neuro Surgical History: No Pertinent History Cardiac: No Pertinent History, Cardiac Catheterization, Cardiac Stent Respiratory: Other Gastrointestinal: No Pertinent History Genitourinary: No Pertinent History Musculoskeletal: Orthopedic Surgery Male Surgical History: No Pertinent History Other Surgical History: R lung cut a 1/4 off the top. 1988, back surgery , inspire placement, rt leg fx - Social History Smoking Status: Current every day smoker How long have you smoked: 30 years Exposure to second hand smoke: No Drug Use: none Patient Lives Alone: No - Nursing Vital Signs Nursing Vital Signs: Initial Vital Signs Temperature 98.6 F 03/30/21 01:29 Pulse Rate 84 03/30/21 01:29 Respiratory Rate 10 L 03/30/21 01:29 Blood Pressure 163/88 03/30/21 01:29 O2 Sat by Pulse Oximetry 99 03/30/21 01:29 Pain Scale Pain Intensity 7 - Physical Exam General Appearance: no apparent distress, alert Eye Exam: PERRL/EOMI, eyes nml inspection Ears, Nose, Throat Exam: normal ENT inspection, TMs normal, pharynx normal, moist mucous membranes Neck Exam: normal inspection, non-tender, supple, full range of motion Respiratory Exam: normal breath sounds, lungs clear, airway intact, No respiratory distress Cardiovascular Exam: regular rate/rhythm, normal heart sounds, normal peripheral pulses Gastrointestinal/Abdomen Exam: soft, normal bowel sounds, No tenderness, No mass Back Exam: normal inspection, normal range of motion, No CVA tenderness, No vertebral tenderness Extremity Exam: normal inspection, normal range of motion, pelvis stable Neurologic Exam: alert, oriented x 3, cooperative, normal mood/affect, nml cerebellar function, nml station & gait, sensation nml, other (Patient ambulatory with a slow guarded gait which he states this is baseline.), No motor deficits, No sensory deficit, No agitation, No uncooperative, No intoxicated appearance, No depressed mood/affect, No motor weakness, No facial droop, No slurred speech, No aphasia, No abnormal gait Skin Exam: normal color, warm, dry, No rash Lymphatic Exam: No adenopathy SpO2 Interpretation: normal SpO2: 98 O2 Delivery: Room Air - Course Nursing assessment & vital signs reviewed: Yes EKG Interpreted by Me: RATE (76), Sinus Rhythm, NORMAL AXIS, NORMAL INTERVALS - CT Exams Head CT Interpretation: Tele-radiologist Report Ordered Tests: Active Orders 24 hr Category Date Time Status Crematory Attendant STAT Care 03/30/21 01:50 Active EKG-ER Only STAT Care 03/30/21 01:49 Active IV Insertion STAT Care 03/30/21 01:49 Active Pulse Oximetry (ED) STAT Care 03/30/21 01:49 Active HEAD WITHOUT CONTRAST [CT] Stat Exams 03/30/21 02:09 Taken CBC W DIFF Stat Lab 03/30/21 02:00 Completed CMP Stat Lab 03/30/21 02:00 Completed TROPONIN Q3H Lab 03/30/21 02:00 Completed TROPONIN Q3H Lab 03/30/21 04:53 Completed TROPONIN Q3H Lab 03/30/21 08:00 Ordered TROPONIN Q3H Lab 03/30/21 11:00 Ordered TROPONIN Q3H Lab 03/30/21 14:00 Ordered Urine Triage Profile Stat Lab 03/30/21 03:46 Completed Transfer Order Routine Transfer 03/30/21 Ordered Medication Summary Generic Name Dose Route Start Last Admin Trade Name Gilles PRN Reason Stop Dose Admin Sodium Chloride 1,000 mls @ 100 mls/hr 03/30/21 02:00 03/30/21 02:08 Sodium Chloride 0.9% 1000 Ml IV 04/29/21 01:59 100 mls/hr .Q10H KAYLYN Administration Discontinued Medications Generic Name Dose Route Start Last Admin Trade Name Gilles PRN Reason Stop Dose Admin Hydromorphone HCl 0.5 mg 03/30/21 04:10 03/30/21 04:35 Hydromorphone 1 Mg/1ml Inj 1 Mg/Ml Syringe IV 03/30/21 04:11 0.5 mg STAT ONE Administration Hydromorphone HCl Confirm 03/30/21 04:32 Hydromorphone 1 Mg/1ml Inj 1 Mg/Ml Syringe Administered 03/30/21 04:33 Dose 1 mg .ROUTE .STK-MED ONE Hydromorphone HCl 0.5 mg 03/30/21 05:01 03/30/21 05:19 Hydromorphone 1 Mg/1ml Inj 1 Mg/Ml Syringe IV 03/30/21 05:02 0.5 mg STAT ONE Administration Hydromorphone HCl Confirm 03/30/21 05:16 Hydromorphone 1 Mg/1ml Inj 1 Mg/Ml Syringe Administered 03/30/21 05:17 Dose 1 mg .ROUTE .STK-MED ONE Lab/Rad Data: Laboratory Result Diagrams 03/30/21 02:00 03/30/21 02:00 Laboratory Results 03/30/21 03/30/21 03/30/21 Range/Units 04:53 03:46 02:00 WBC (4.0-10.5) K/mm3 RBC (4.1-5.6) M/mm3 Hgb (12.5-18.0) gm/dl Hct (42-50) % MCV (78-100) fl MCH (26-32) pg MCHC (32-36) g/dl RDW (11.5-14.0) % Plt Count (150-450) K/mm3 MPV (7.5-11.0) fl Gran % (36.0-66.0) % Eos # (Auto) (0-0.5) Absolute Lymphs (auto) (1.0-4.6) Absolute Monos (auto) (0.0-1.3) Lymphocytes % (24.0-44.0) % Monocytes % (0.0-12.0) % Eosinophils % (0.00-5.0) % Basophils % (0.0-0.4) % Absolute Granulocytes (1.4-6.9) Basophils # (0-0.4) Sodium (137-145) mmol/L Potassium (3.5-5.1) mmol/L Chloride (98-107) mmol/L Carbon Dioxide (22-30) mmol/L Anion Gap (5-15) MEQ/L BUN (9-20) mg/dL Creatinine (0.66-1.25) mg/dL Estimated GFR ML/MIN Glucose (74-106) mg/dL Calcium (8.4-10.2) mg/dL Total Bilirubin (0.2-1.3) mg/dL AST (17-59) U/L ALT (0-50) U/L Alkaline Phosphatase (38-126) U/L Troponin I < 0.012 < 0.012 (0.000-0.034) ng/mL Serum Total Protein (6.3-8.2) g/dL Albumin (3.5-5.0) g/dL Urine Opiates Level NEGATIVE (NEGATIVE) Ur Methadone NEGATIVE (NEGATIVE) Urine Barbiturates NEGATIVE (NEGATIVE) Ur Phencyclidine (PCP) NEGATIVE (NEGATIVE) Urine Amphetamine NEGATIVE (NEGATIVE) U Benzodiazepine Level POSITIVE (NEGATIVE) Urine Cocaine NEGATIVE (NEGATIVE) Urine Marijuana (THC) NEGATIVE (NEGATIVE) 03/30/21 03/30/21 Range/Units 02:00 02:00 WBC 6.8 (4.0-10.5) K/mm3 RBC 3.70 L (4.1-5.6) M/mm3 Hgb 10.8 L (12.5-18.0) gm/dl Hct 34.5 L (42-50) % MCV 93.2 (78-100) fl MCH 29.2 (26-32) pg MCHC 31.3 L (32-36) g/dl RDW 19.1 H (11.5-14.0) % Plt Count 218 (150-450) K/mm3 MPV 9.5 (7.5-11.0) fl Gran % 64.6 (36.0-66.0) % Eos # (Auto) 0.08 (0-0.5) Absolute Lymphs (auto) 1.94 (1.0-4.6) Absolute Monos (auto) 0.39 (0.0-1.3) Lymphocytes % 28.4 (24.0-44.0) % Monocytes % 5.7 (0.0-12.0) % Eosinophils % 1.2 (0.00-5.0) % Basophils % 0.1 (0.0-0.4) % Absolute Granulocytes 4.40 (1.4-6.9) Basophils # 0.01 (0-0.4) Sodium 141 (137-145) mmol/L Potassium 3.6 (3.5-5.1) mmol/L Chloride 106 (98-107) mmol/L Carbon Dioxide 28 (22-30) mmol/L Anion Gap 11.2 (5-15) MEQ/L BUN 18 (9-20) mg/dL Creatinine 1.41 H (0.66-1.25) mg/dL Estimated GFR 55.3 ML/MIN Glucose 100 (74-106) mg/dL Calcium 8.6 (8.4-10.2) mg/dL Total Bilirubin 0.40 (0.2-1.3) mg/dL AST 20 (17-59) U/L ALT 16 (0-50) U/L Alkaline Phosphatase 96 (38-126) U/L Troponin I (0.000-0.034) ng/mL Serum Total Protein 6.6 (6.3-8.2) g/dL Albumin 3.5 (3.5-5.0) g/dL Urine Opiates Level (NEGATIVE) Ur Methadone (NEGATIVE) Urine Barbiturates (NEGATIVE) Ur Phencyclidine (PCP) (NEGATIVE) Urine Amphetamine (NEGATIVE) U Benzodiazepine Level (NEGATIVE) Urine Cocaine (NEGATIVE) Urine Marijuana (THC) (NEGATIVE) - Progress Progress: improved Progress Note: Case discussed with Dr. Gagnon who accepts admission to observation. Covid test pending. Plan of care discussed with patient. He agrees to admission [facility] for further evaluation and treatment. Aspirin not administered as patient is allergic to NSAIDs. 03/30/21 02:58 Telemetry neuro advises admission for repeat CT venogram as well as CT angio of head and neck. Portions of this note were created with voice recognition technology. There may be grammatical, spelling, punctuation or sound alike errors 03/30/21 05:[address] Cindy Will see patient in: hospital (observation) Counseled pt/family regarding: lab results, diagnosis, rad results - Departure Departure Disposition: Transfer Clinical Impression: TIA (transient ischemic attack) Condition: Stable Critical Care Time: No Referrals: [facility]OS[facility],'S [Primary Care Provider] - Follow up/PCP as directed
[2021-03-30] MEDS ORDERED: Sodium Chloride 0.9% 1000 ML 1,000 ML ONE (02:06)
[2021-03-30 02:11] LABS: Basophil (Absolute #) 0.01 (0-0.4); Eosinophil % 1.2 % (0.00-5.0); Eosinophil (Absolute #) 0.08 (0-0.5); Hematocrit 34.5 % (42-50); Hemoglobin 10.8 gm/dl (12.5-18.0); Lymphocyte (Absolute #) 1.94 (1.0-4.6); Lymphocytes % 28.4 % (24.0-44.0); Mean Cell Volume 93.2 fl (78-100); Mean Corpuscular Hemoglobin 29.2 pg (26-32); Mean Corpuscular Hgb Concent. 31.3 g/dl (32-36); Mean Platelet Volume 9.5 fl (7.5-11.0); Monocyte (Absolute #) 0.39 (0.0-1.3); Monocytes % 5.7 % (0.0-12.0); Neutrophil % 64.6 % (36.0-66.0); Platelet Count 218 K/mm3 (150-450); Red Cell Distribution Width 19.1 % (11.5-14.0); White Blood Count 6.8 K/mm3 (4.0-10.5)
[2021-03-30 02:15] LABS: ALBUMIN 3.5 g/dL (3.5-5.0); ANION GAP 11.2 MEQ/L (5-15); BILIRUBIN,TOTAL 0.4 mg/dL (0.2-1.3); Calcium 8.6 mg/dL (8.4-10.2); Creatinine 1 1.41 mg/dL (0.66-1.25); EST GLOMERULAR FILTRATION RATE 55.3 ML/MIN; Potassium 3.6 mmol/L (3.5-5.1); Total Protein 6.6 g/dL (6.3-8.2)
[2021-03-30] MEDS ORDERED: Hydromorphone 1 mg/ml Injection IV ONE ×2 (04:10→05:01)
[2021-03-30] MEDS ORDERED: Hydromorphone 1 mg/ml Injection ONE ×2 (04:32→05:16)
[2021-03-30 05:16] LABS: Amphetamine,Urine NEGATIVE (NEGATIVE); Barbiturate,Urine NEGATIVE (NEGATIVE); Benzodiazepine,Urine POSITIVE (NEGATIVE); Cocaine,Urine NEGATIVE (NEGATIVE); Methadone,Urine NEGATIVE (NEGATIVE); Opiate,Urine NEGATIVE (NEGATIVE); PCP,Urine NEGATIVE (NEGATIVE); THC,Urine NEGATIVE (NEGATIVE)
[2021-03-30 05:32] LABS: INFLUENZA A NEGATIVE (NEGATIVE); INFLUENZA B NEGATIVE (NEGATIVE); RESPIRATORY SYNCTIAL VIRUS NEGATIVE (Negative); SARS-CoV-2 Xpert Express NEGATIVE (NEGATIVE)
[2021-03-30 05:40] VITALS: O2SAT 98
[2021-03-30] MEDS ORDERED: MILK OF MAGNESIA 30 ML PO PRN (05:55)
[2021-03-30] MEDS ORDERED: Senokot-S Tablet PO PRN (05:55)
[2021-03-30] MEDS ORDERED: Zofran 4 MG/2 ML VIAL IV PRN (05:55)
[2021-03-30] MEDS ORDERED: MAALOX ES 30 ML UNIT DOSE PO PRN (05:55)
[2021-03-30 06:48] VITALS: BP 162/92; PULSE 73
--- NOTE | 2021-03-30 08:43 | XRAY ---
Indication: Headache. High blood pressure. Multiple contiguous axial images obtained through the head without contrast. Comparison: March 15, 2021. Normal appearing brain parenchyma, ventricles, and bony calvarium. Visualized paranasal sinuses and mastoid air cells are clear. Impression: Continued normal CT head without contrast exam. Comment: Preliminary interpretation made by [facility]. No critical discrepancy.
--- NOTE | 2021-03-30 17:40 | PCM.SSS ---
History of Present Illness - Chief Complaint Chief Complaint: weakness for 1 day History of Present Illness: Mr.MAAK ROBLES is a 55 year old male.presents to our ED via EMS for evaluation of a headache and left upper and lower extremity numbness. Patient states he has a history of TIA. [facility]. [facility] called the [facility] and they advised him to come to the nearest emergency department for evaluation. Patient also complains of decreased sensation to the right arm. Patient's headache is global. Patient states while he was experiencing his symptoms he experienced weakness of the lower extremities. Patient was descending stairs and felt his legs to be wobbly. No fall. No trauma. No fever. No BHT or LOC. No neck pain. Patient voices no other complaints or concerns at this time. - Review of Systems Constitutional: No Fever, No Chills Eyes: No Symptoms Ears, Nose, & Throat: No Symptoms Respiratory: No Cough, No Short Of Breath Cardiac: No Chest Pain, No Edema, No Syncope Abdominal/Gastrointestinal: No Abdominal Pain, No Nausea, No Vomiting, No Diarrhea Genitourinary Symptoms: No Dysuria Musculoskeletal: No Back Pain, No Neck Pain Skin: No Rash Neurological: No Dizziness, No Focal Weakness, No Sensory Changes Psychological: No Symptoms Endocrine: No Symptoms Hematologic/Lymphatic: No Symptoms Immunological/Allergic: No Symptoms Medications & Allergies Home Medications: Home Medication List Aspirin 81 gm Chew [Baby Aspirin 81 mg Chew] 81 mg PO DAILY 04/11/14 [History Confirmed 03/30/21] ondansetron HCL [Zofran] 4 mg PO Q6HPRN 04/11/14 [History Confirmed 03/30/21] Albuterol Sulfate [Proair Digihaler] 2 puff IH QID PRN PRN 09/11/20 [History Confirmed 03/30/21] Atorvastatin Calcium 1 tab PO HS 09/11/20 [History Confirmed 03/30/21] Budesonide/Formoterol Fumarate [Budesonide-Formoterol 160-4.5] 2 puffs IH BID 09/11/20 [History Confirmed 03/30/21] Fluticasone Propionate [Flovent Diskus] 2 sprays IN DAILY 09/11/20 [History Confirmed 03/30/21] PANTOPRAZOLE 40 mg Tablet [Protonix 40MG Tablet] 80 mg PO BID 09/11/20 [History Confirmed 03/30/21] Ticagrelor [Brilinta] 90 mg PO BID 09/11/20 [History Confirmed 03/30/21] Tiotropium [place] Inhaler [Spiriva 18 Mcg/Cap Inhaler] 2 puffs IH DAILY 09/11/20 [History Confirmed 03/30/21] clonazePAM [Clonazepam] 2 mg PO UD PRN 09/11/20 [History Confirmed 03/30/21] lisinopriL [Lisinopril] 2.5 mg PO DAILY PRN PRN 09/11/20 [History Confirmed 03/30/21] Cholecalciferol (Vitamin D3) [Vitamin D3] 125 mcg PO DAILY 03/22/21 [History Confirmed 03/30/21] Cyanocobalamin 500 Mcg [Vitamin B-12 500 MCG] 1,000 mcg PO DAILY 03/22/21 [History Confirmed 03/30/21] Loratadine 10 mg [Claritin 10 mg] 10 mg PO DAILY 03/22/21 [History Confirmed 03/30/21] Ranolazine 500 MG [Ranexa 500 MG] 500 mg PO BID 03/22/21 [History Confirmed 03/30/21] Acetaminophen 500 mg [Tylenol Extra Strength 500 mg] 2,500 mg PO TID 03/30/21 [History Confirmed 03/30/21] Nitroglycerin [Nitrolingual] 1 gm TL Q5MIN PRN MR X 3 PRN 03/30/21 [History Confirmed 03/30/21] Allergies/Adverse Reactions: Allergies Allergy/AdvReac Type Severity Reaction Status Date / Time acetaminophen [From Vicodin] Allergy Rash Verified 03/30/21 01:29 hydrocodone bitartrate Allergy Rash Verified 03/30/21 01:29 [From Vicodin] Iodinated Contrast Media Allergy Verified 03/30/21 01:29 ketorolac [From Toradol] Allergy Verified 03/30/21 01:29 Penicillins Allergy Verified 03/30/21 01:29 codeine AdvReac Verified 03/30/21 01:29 codeine phosphate AdvReac Verified 03/30/21 01:29 [From Codar D] morphine AdvReac Verified 03/30/21 01:29 pseudoephedrine HCl AdvReac Verified 03/30/21 01:29 [From Codar D] - Past Medical History Past Medical History: Yes Neurological History: No Pertinent History, TIA ENT History: No Pertinent History Cardiac History: Aneurysm, Coronary Artery Disease, Hypertension, Myocardial Infarction (MT) Respiratory History: COPD, Emphysema, Sleep Apnea, Other Endocrine Medical History: No Pertinent History Musculoskelatal History: No Pertinent History GI Medical History: No Pertinent History, Hernia History: No Pertinent History Pyscho-Social History: Anxiety Male Reproductive Disorders: No Pertinent History Comment: Right lung pnuemo, CHRONIC BACK PAIN. KIDNEY STONES - Past Surgical History Past Surgical History: Yes Neuro Surgical History: No Pertinent History Cardiac History: No Pertinent History, Cardiac Catheterization, Cardiac Stent Respiratory Surgery: Other GI Surgical History: No Pertinent History Genitourinary Surgical Hx: No Pertinent History Musculskeletal Surgical Hx: Orthopedic Surgery Male Surgical History: No Pertinent History Other Surgical History: R lung cut a 1/4 inch off the top. 1988, back surgery , inspire placement, rt leg fx - Social History Smoking Status: Current every day smoker How long have you smoked: 30 years Exposure to second hand smoke: No Alcohol: None Drug Use: none - Physical Exam Vital Signs: Vital Signs - 24 hr Temp Pulse Resp BP Pulse Ox 03/30/21 07:43 98.0 F 73 20 162/92 98 03/30/21 06:16 98.0 F 73 20 162/92 98 03/30/21 05:40 98 03/30/21 05:14 77 16 179/98 97 03/30/21 04:00 72 16 164/85 98 03/30/21 03:29 78 171/90 98 03/30/21 02:35 72 152/95 99 03/30/21 01:49 98 03/30/21 01:29 98.6 F 84 10 L 163/88 99 General Appearance: no apparent distress, alert Neurologic Exam: alert, oriented x 3, cooperative, normal mood/affect, nml cerebellar function, nml station & gait, sensation nml, No motor deficits Eye Exam: PERRL/EOMI, eyes nml inspection Ears, Nose, Throat Exam: normal ENT inspection, TMs normal, pharynx normal, moist mucous membranes Neck Exam: normal inspection, non-tender, supple, full range of motion Respiratory Exam: normal breath sounds, lungs clear, No respiratory distress Cardiovascular Exam: regular rate/rhythm, normal heart sounds, normal peripheral pulses Gastrointestinal/Abdomen Exam: soft, normal bowel sounds, No tenderness, No mass Back Exam: normal inspection, normal range of motion, No CVA tenderness, No vertebral tenderness Extremity Exam: normal inspection, normal range of motion, pelvis stable Skin Exam: normal color, warm, dry, No rash Lymphatic Exam: No adenopathy Results - Labs Lab/Micro Results: Lab Results-Last 24 Hours 03/30/21 03/30/21 03/30/21 Range/Units 02:00 02:00 02:00 WBC 6.8 (4.0-10.5) K/mm3 RBC 3.70 L (4.1-5.6) M/mm3 Hgb 10.8 L (12.5-18.0) gm/dl Hct 34.5 L (42-50) % MCV 93.2 (78-100) fl MCH 29.2 (26-32) pg MCHC 31.3 L (32-36) g/dl RDW 19.1 H (11.5-14.0) % Plt Count 218 (150-450) K/mm3 MPV 9.5 (7.5-11.0) fl Gran % 64.6 (36.0-66.0) % Eos # (Auto) 0.08 (0-0.5) Absolute Lymphs (auto) 1.94 (1.0-4.6) Absolute Monos (auto) 0.39 (0.0-1.3) Lymphocytes % 28.4 (24.0-44.0) % Monocytes % 5.7 (0.0-12.0) % Eosinophils % 1.2 (0.00-5.0) % Basophils % 0.1 (0.0-0.4) % Absolute Granulocytes 4.40 (1.4-6.9) Basophils # 0.01 (0-0.4) Sodium 141 (137-145) mmol/L Potassium 3.6 (3.5-5.1) mmol/L Chloride 106 (98-107) mmol/L Carbon Dioxide 28 (22-30) mmol/L Anion Gap 11.2 (5-15) MEQ/L BUN 18 (9-20) mg/dL Creatinine 1.41 H (0.66-1.25) mg/dL Estimated GFR 55.3 ML/MIN Glucose 100 (74-106) mg/dL Calcium 8.6 (8.4-10.2) mg/dL Total Bilirubin 0.40 (0.2-1.3) mg/dL AST 20 (17-59) U/L ALT 16 (0-50) U/L Alkaline Phosphatase 96 (38-126) U/L Troponin I < 0.012 (0.000-0.034) ng/mL Serum Total Protein 6.6 (6.3-8.2) g/dL Albumin 3.5 (3.5-5.0) g/dL Urine Opiates Level (NEGATIVE) Ur Methadone (NEGATIVE) Urine Barbiturates (NEGATIVE) Ur Phencyclidine (PCP) (NEGATIVE) Urine Amphetamine (NEGATIVE) U Benzodiazepine Level (NEGATIVE) Urine Cocaine (NEGATIVE) Urine Marijuana (THC) (NEGATIVE) Influenza Type A Ag (NEGATIVE) Influenza Type B Ag (NEGATIVE) RSV (PCR) (Negative) SARS-CoV-2 (PCR) (NEGATIVE) 03/30/21 03/30/21 03/30/21 Range/Units 03:46 04:53 04:53 WBC (4.0-10.5) K/mm3 RBC (4.1-5.6) M/mm3 Hgb (12.5-18.0) gm/dl Hct (42-50) % MCV (78-100) fl MCH (26-32) pg MCHC (32-36) g/dl RDW (11.5-14.0) % Plt Count (150-450) K/mm3 MPV (7.5-11.0) fl Gran % (36.0-66.0) % Eos # (Auto) (0-0.5) Absolute Lymphs (auto) (1.0-4.6) Absolute Monos (auto) (0.0-1.3) Lymphocytes % (24.0-44.0) % Monocytes % (0.0-12.0) % Eosinophils % (0.00-5.0) % Basophils % (0.0-0.4) % Absolute Granulocytes (1.4-6.9) Basophils # (0-0.4) Sodium (137-145) mmol/L Potassium (3.5-5.1) mmol/L Chloride (98-107) mmol/L Carbon Dioxide (22-30) mmol/L Anion Gap (5-15) MEQ/L BUN (9-20) mg/dL Creatinine (0.66-1.25) mg/dL Estimated GFR ML/MIN Glucose (74-106) mg/dL Calcium (8.4-10.2) mg/dL Total Bilirubin (0.2-1.3) mg/dL AST (17-59) U/L ALT (0-50) U/L Alkaline Phosphatase (38-126) U/L Troponin I < 0.012 (0.000-0.034) ng/mL Serum Total Protein (6.3-8.2) g/dL Albumin (3.5-5.0) g/dL Urine Opiates Level NEGATIVE (NEGATIVE) Ur Methadone NEGATIVE (NEGATIVE) Urine Barbiturates NEGATIVE (NEGATIVE) Ur Phencyclidine (PCP) NEGATIVE (NEGATIVE) Urine Amphetamine NEGATIVE (NEGATIVE) U Benzodiazepine Level POSITIVE (NEGATIVE) Urine Cocaine NEGATIVE (NEGATIVE) Urine Marijuana (THC) NEGATIVE (NEGATIVE) Influenza Type A Ag NEGATIVE (NEGATIVE) Influenza Type B Ag NEGATIVE (NEGATIVE) RSV (PCR) NEGATIVE (Negative) SARS-CoV-2 (PCR) NEGATIVE (NEGATIVE) 03/30/21 Range/Units 08:36 WBC (4.0-10.5) K/mm3 RBC (4.1-5.6) M/mm3 Hgb (12.5-18.0) gm/dl Hct (42-50) % MCV (78-100) fl MCH (26-32) pg MCHC (32-36) g/dl RDW (11.5-14.0) % Plt Count (150-450) K/mm3 MPV (7.5-11.0) fl Gran % (36.0-66.0) % Eos # (Auto) (0-0.5) Absolute Lymphs (auto) (1.0-4.6) Absolute Monos (auto) (0.0-1.3) Lymphocytes % (24.0-44.0) % Monocytes % (0.0-12.0) % Eosinophils % (0.00-5.0) % Basophils % (0.0-0.4) % Absolute Granulocytes (1.4-6.9) Basophils # (0-0.4) Sodium (137-145) mmol/L Potassium (3.5-5.1) mmol/L Chloride (98-107) mmol/L Carbon Dioxide (22-30) mmol/L Anion Gap (5-15) MEQ/L BUN (9-20) mg/dL Creatinine (0.66-1.25) mg/dL Estimated GFR ML/MIN Glucose (74-106) mg/dL Calcium (8.4-10.2) mg/dL Total Bilirubin (0.2-1.3) mg/dL AST (17-59) U/L ALT (0-50) U/L Alkaline Phosphatase (38-126) U/L Troponin I < 0.012 (0.000-0.034) ng/mL Serum Total Protein (6.3-8.2) g/dL Albumin (3.5-5.0) g/dL Urine Opiates Level (NEGATIVE) Ur Methadone (NEGATIVE) Urine Barbiturates (NEGATIVE) Ur Phencyclidine (PCP) (NEGATIVE) Urine Amphetamine (NEGATIVE) U Benzodiazepine Level (NEGATIVE) Urine Cocaine (NEGATIVE) Urine Marijuana (THC) (NEGATIVE) Influenza Type A Ag (NEGATIVE) Influenza Type B Ag (NEGATIVE) RSV (PCR) (Negative) SARS-CoV-2 (PCR) (NEGATIVE) - Radiology Impressions Radiology Exams & Impressions: Radiology Procedures Category Date Time Status HEAD WITHOUT CONTRAST [CT] Stat Exams 03/30/21 02:09 Completed Assessment/Plan (1) TIA (transient ischemic attack) Status: Acute Assessment & Plan: Chief Complaint Diagnosis TIA Allergies Allergy/AdvReac Type Severity Reaction Status Date / Time acetaminophen [From Vicodin] Allergy Rash Verified 03/30/21 01:29 hydrocodone bitartrate Allergy Rash Verified 03/30/21 01:29 [From Vicodin] Iodinated Contrast Media Allergy Verified 03/30/21 01:29 ketorolac [From Toradol] Allergy Verified 03/30/21 01:29 Penicillins Allergy Verified 03/30/21 01:29 codeine AdvReac Verified 03/30/21 01:29 codeine phosphate AdvReac Verified 03/30/21 01:29 [From Codar D] morphine AdvReac Verified 03/30/21 01:29 pseudoephedrine HCl AdvReac Verified 03/30/21 01:29 [From Bhavana Lee] Vital Signs (Last 24 hours) Temp Pulse Resp BP Pulse Ox 03/30/21 07:43 98.0 F 73 20 162/92 98 03/30/21 06:16 98.0 F 73 20 162/92 98 03/30/21 05:40 98 03/30/21 05:14 77 16 179/98 97 03/30/21 04:00 72 16 164/85 98 03/30/21 03:29 78 171/90 98 03/30/21 02:35 72 152/95 99 03/30/21 01:49 98 03/30/21 01:29 98.6 F 84 10 L 163/88 99 Home Medications Medication Instructions Recorded Confirmed Last Taken Type Acetaminophen 500 mg [Tylenol 2,500 mg PO TID 03/30/21 03/30/21 03/29/21 21:30 History Extra Strength 500 mg] Nitroglycerin [Nitrolingual] 1 gm TL Q5MIN PRN MR X 3 PRN 03/30/21 03/30/21 Unknown History Current Medications Discontinued Medications Generic Name Dose Route Start Last Admin Trade Name Freq PRN Reason Stop Dose Admin Al Hydrox/Mg Hydrox/Simethicone 30 ml 03/30/21 05:55 Mag Hydrox/Al Hydrox/Simeth 30 Ml Udcup PO 04/29/21 05:54 Q4H PRN PRN INDIGESTION Hydromorphone HCl 0.5 mg 03/30/21 04:10 03/30/21 04:35 Hydromorphone 1 Mg/1ml Inj 1 Mg/Ml Syringe IV 03/30/21 04:11 0.5 mg STAT ONE Administration Hydromorphone HCl Confirm 03/30/21 04:32 Hydromorphone 1 Mg/1ml Inj 1 Mg/Ml Syringe Administered 03/30/21 04:33 Dose 1 mg .ROUTE .STK-MED ONE Hydromorphone HCl 0.5 mg 03/30/21 05:01 03/30/21 05:19 Hydromorphone 1 Mg/1ml Inj 1 Mg/Ml Syringe IV 03/30/21 05:02 0.5 mg STAT ONE Administration Hydromorphone HCl Confirm 03/30/21 05:16 Hydromorphone 1 Mg/1ml Inj 1 Mg/Ml Syringe Administered 03/30/21 05:17 Dose 1 mg .ROUTE .STK-MED ONE Sodium Chloride 1,000 mls @ 100 mls/hr 03/30/21 02:00 03/30/21 02:08 Sodium Chloride 0.9% 1000 Ml IV 04/29/21 01:59 100 mls/hr .Q10H KAYLYN Administration Sodium Chloride Confirm 03/30/21 02:06 Sodium Chloride 0.9% 1000 Ml Administered 03/30/21 02:07 Dose 1,000 mls @ ud .ROUTE .STK-MED ONE Magnesium Hydroxide 30 - 60 ml 03/30/21 05:55 Magnesium Hydroxide 30 Ml Udcup PO 04/29/21 05:54 QDP PRN CONSTIPATION Ondansetron HCl 4 mg 03/30/21 05:55 Ondansetron Hcl 4 Mg/2 Ml Vial IV 04/29/21 05:54 Q4H PRN PRN NAUSEA/VOMITING Senna/Docusate Sodium 2 udtab 03/30/21 05:55 Senna/Docusate Sodium 1 Udtab Tablet PO 04/29/21 05:54 BID PRN PRN CONSTIPATION Intake & Output (Last 24 hours) 03/28/21 03/29/21 03/30/21 03/31/21 11:59 11:59 11:59 11:59 Weight 89 kg Laboratory Results (Last 24 hours) 03/30/21 03/30/21 03/30/21 08:36 04:53 04:53 WBC RBC Hgb Hct MCV MCH MCHC RDW Plt Count MPV Gran % Eos # (Auto) Absolute Lymphs (auto) Absolute Monos (auto) Lymphocytes % Monocytes % Eosinophils % Basophils % Absolute Granulocytes Basophils # Sodium Potassium Chloride Carbon Dioxide Anion Gap BUN Creatinine Estimated GFR Glucose Calcium Total Bilirubin AST ALT Alkaline Phosphatase Troponin I < 0.012 < 0.012 Serum Total Protein Albumin Urine Opiates Level Ur Methadone Urine Barbiturates Ur Phencyclidine (PCP) Urine Amphetamine U Benzodiazepine Level Urine Cocaine Urine Marijuana (THC) Influenza Type A Ag NEGATIVE Influenza Type B Ag NEGATIVE RSV (PCR) NEGATIVE SARS-CoV-2 (PCR) NEGATIVE 03/30/21 03/30/21 03/30/21 03:46 02:00 02:00 WBC RBC Hgb Hct MCV MCH MCHC RDW Plt Count MPV Gran % Eos # (Auto) Absolute Lymphs (auto) Absolute Monos (auto) Lymphocytes % Monocytes % Eosinophils % Basophils % Absolute Granulocytes Basophils # Sodium 141 Potassium 3.6 Chloride 106 Carbon Dioxide 28 Anion Gap 11.2 BUN 18 Creatinine 1.41 H Estimated GFR 55.3 Glucose 100 Calcium 8.6 Total Bilirubin 0.40 AST 20 ALT 16 Alkaline Phosphatase 96 Troponin I < 0.012 Serum Total Protein 6.6 Albumin 3.5 Urine Opiates Level NEGATIVE Ur Methadone NEGATIVE Urine Barbiturates NEGATIVE Ur Phencyclidine (PCP) NEGATIVE Urine Amphetamine NEGATIVE U Benzodiazepine Level POSITIVE Urine Cocaine NEGATIVE Urine Marijuana (THC) NEGATIVE Influenza Type A Ag Influenza Type B Ag RSV (PCR) SARS-CoV-2 (PCR) 03/30/21 02:00 WBC 6.8 RBC 3.70 L Hgb 10.8 L Hct 34.5 L MCV 93.2 MCH 29.2 MCHC 31.3 L RDW 19.1 H Plt Count 218 MPV 9.5 Gran % 64.6 Eos # (Auto) 0.08 Absolute Lymphs (auto) 1.94 Absolute Monos (auto) 0.39 Lymphocytes % 28.4 Monocytes % 5.7 Eosinophils % 1.2 Basophils % 0.1 Absolute Granulocytes 4.40 Basophils # 0.01 Sodium Potassium Chloride Carbon Dioxide Anion Gap BUN Creatinine Estimated GFR Glucose Calcium Total Bilirubin AST ALT Alkaline Phosphatase Troponin I Serum Total Protein Albumin Urine Opiates Level Ur Methadone Urine Barbiturates Ur Phencyclidine (PCP) Urine Amphetamine U Benzodiazepine Level Urine Cocaine Urine Marijuana (THC) Influenza Type A Ag Influenza Type B Ag RSV (PCR) SARS-CoV-2 (PCR) Orders (Last 24 hours) Category Date Time Status Bedrest with BRP/BSC ROUTINE Activity 03/30/21 05:55 Completed AGAINST MEDICAL ADVISE [Release AMA] OM.NOW Care 03/30/21 09:20 Completed Mammography Tech STAT Care 03/30/21 01:50 Completed Code Status Order ROUTINE Care 03/30/21 05:55 Completed EKG-ER Only STAT Care 03/30/21 01:49 Completed IV Care Q6H Care 03/30/21 05:55 Completed IV Insertion STAT Care 03/30/21 01:49 Completed Implement Chest Pain Pathway ROUTINE Care 03/30/21 05:[address] in Observation ROUTINE Care 03/30/21 05:55 Completed Pulse Oximetry (ED) STAT Care 03/30/21 01:49 Completed Juan Diego Talamantes, Apply ROUTINE Care 03/30/21 05:55 Completed Telemetry q6h Care 03/30/21 05:55 Completed Weight,Daily 0600 Care 03/30/21 05:55 Completed Heart-Healthy Diet Diet 03/30/21 Breakfast Completed HEAD WITHOUT CONTRAST [CT] Stat Exams 03/30/21 02:09 Completed CBC W DIFF Stat Lab 03/30/21 02:00 Completed CMP Stat Lab 03/30/21 02:00 Completed TROPONIN Q3H Lab 03/30/21 02:00 Completed TROPONIN Q3H Lab 03/30/21 04:53 Completed TROPONIN Q3H Lab 03/30/21 08:36 Completed Urine Triage Profile Stat Lab 03/30/21 03:46 Completed Hydromorphone 1 mg/1Ml Inj [Hydromorphone 1 mg/ml Med 03/30/21 04:10 Discontinued Injection] 0.5 mg IV STAT ONE Hydromorphone 1 mg/1Ml Inj [Hydromorphone 1 mg/ml Med 03/30/21 05:01 Discontinued Injection] 0.5 mg IV STAT ONE Hydromorphone 1 mg/1Ml Inj [Hydromorphone 1 mg/ml Med 03/30/21 04:32 Discontinued Injection] 1 mg .ROUTE .STK-MED ONE Hydromorphone 1 mg/1Ml Inj [Hydromorphone 1 mg/ml Med 03/30/21 05:16 Discontinued Injection] 1 mg .ROUTE .STK-MED ONE Mag Hydrox/Al Hydrox/Simeth [Maalox Es 30 ml Unit Med 03/30/21 05:55 Discontinued Dose] 30 ml PO Q4H PRN PRN Magnesium Hydroxide 30 ml [Milk of Magnesia 30 ml Med 03/30/21 05:55 Discontinued ] 30 - 60 ml PO QDP PRN NaCl 0.9% 1000 ml [Sodium Chloride 0.9% 1000 ML] 1,000 Med 03/30/21 02:06 Discontinued ml .ROUTE UD NaCl 0.9% 1000 ml [Sodium Chloride 0.9% 1000 ML] 1,000 Med 03/30/21 02:00 Discontinued ml IV 100 mls/hr Ondansetron HCl 4 mg/2 ml [Zofran 4 MG/2 ML VIAL] Med 03/30/21 05:55 Discontinued 4 mg IV Q4H PRN PRN Senna/Docusate Sodium Tab [Senokot-S Tablet] Med 03/30/21 05:55 Discontinued 2 udtab PO BID PRN PRN EKG ROUTINE RT 03/30/21 09:45 Completed EKG ROUTINE RT 03/31/21 05:00 Completed EKG ROUTINE RT 04/01/21 05:00 Completed RT Screen per Nursing Assess ONCE RT 03/30/21 06:51 Completed Smoking Cessation Education ONCE RT 03/30/21 06:51 Completed Transfer Order Routine Transfer 03/30/21 Completed Patient Care Notes (Last 24 hours) 03/30/21 11:06 Nursing Note by Papito Donald CASE MANAGEMENT INFORMED [facility] OF PT LEAVING AMA Initialized on 03/30/21 11:06 - END OF NOTE 03/30/21 09:56 Nursing Note by Papito Donald PT UPSET THIS MORNING C/O CHAWLA STATING HE WANTS TO GO HOME. EXPLAINED TO HIM THAT THE MD NEEDED TO SEE HIM FIRST. OFFERED TO GET AN ORDER FOR SOMETHING FOR PAIN PT, REFUSED. DR ECHEVERRIA MADE AWARE OF PT BEING UPSET WANTING TO DC, STATES HE WILL BE IN AROUND NOON TO SEE PT. INFORMED PT, HE BECAME MORE UPSET STATING HE WAS NOT WAITING UNTIL NOON HE IS LEAVING NOW HE WILL LEAVE AMA. EXPLAINED TO PT RISKS OF LEAVING AMA, VERBALIZED UNDERSTANDING, AMA PAPER SIGNED. [employer] MADE AWARE Addendum entered by Papito Donald RN 03/30/21 10:16: CALLED DR ECHEVERRIA MADE AWARE Initialized on 03/30/21 09:56 - END OF NOTE 03/30/21 07:08 (created 03/30/21 08:25) Nursing Note by Ariane Lee I faxed patient's tele-neurology report to '[facility] [place] [facility]. Initialized on 03/30/21 08:25 - END OF NOTE Code(s): G45.9 - TRANSIENT CEREBRAL ISCHEMIC ATTACK, UNSPECIFIED Hospital Summary - Hospital Course Hospital Course: Chief Complaint Diagnosis TIA Allergies Allergy/AdvReac Type Severity Reaction Status Date / Time acetaminophen [From Vicodin] Allergy Rash Verified 03/30/21 01:29 hydrocodone bitartrate Allergy Rash Verified 03/30/21 01:29 [From Vicodin] Iodinated Contrast Media Allergy Verified 03/30/21 01:29 ketorolac [From Toradol] Allergy Verified 03/30/21 01:29 Penicillins Allergy Verified 03/30/21 01:29 codeine AdvReac Verified 03/30/21 01:29 codeine phosphate AdvReac Verified 03/30/21 01:29 [From Codar D] morphine AdvReac Verified 03/30/21 01:29 pseudoephedrine HCl AdvReac Verified 03/30/21 01:29 [From Codar D] Vital Signs (Last 24 hours) Temp Pulse Resp BP Pulse Ox 03/30/21 07:43 98.0 F 73 20 162/92 98 03/30/21 06:16 98.0 F 73 20 162/92 98 03/30/21 05:40 98 03/30/21 05:14 77 16 179/98 97 03/30/21 04:00 72 16 164/85 98 03/30/21 03:29 78 171/90 98 03/30/21 02:35 72 152/95 99 03/30/21 01:49 98 03/30/21 01:29 98.6 F 84 10 L 163/88 99 Home Medications Medication Instructions Recorded Confirmed Last Taken Type Acetaminophen 500 mg [Tylenol 2,500 mg PO TID 03/30/21 03/30/21 03/29/21 21:30 History Extra Strength 500 mg] Nitroglycerin [Nitrolingual] 1 gm TL Q5MIN PRN MR X 3 PRN 03/30/21 03/30/21 Unknown History Current Medications Discontinued Medications Generic Name Dose Route Start Last Admin Trade Name Freq PRN Reason Stop Dose Admin Al Hydrox/Mg Hydrox/Simethicone 30 ml 03/30/21 05:55 Mag Hydrox/Al Hydrox/Simeth 30 Ml Udcup PO 04/29/21 05:54 Q4H PRN PRN INDIGESTION Hydromorphone HCl 0.5 mg 03/30/21 04:10 03/30/21 04:35 Hydromorphone 1 Mg/1ml Inj 1 Mg/Ml Syringe IV 03/30/21 04:11 0.5 mg STAT ONE Administration Hydromorphone HCl Confirm 03/30/21 04:32 Hydromorphone 1 Mg/1ml Inj 1 Mg/Ml Syringe Administered 03/30/21 04:33 Dose 1 mg .ROUTE .STK-MED ONE Hydromorphone HCl 0.5 mg 03/30/21 05:01 03/30/21 05:19 Hydromorphone 1 Mg/1ml Inj 1 Mg/Ml Syringe IV 03/30/21 05:02 0.5 mg STAT ONE Administration Hydromorphone HCl Confirm 03/30/21 05:16 Hydromorphone 1 Mg/1ml Inj 1 Mg/Ml Syringe Administered 03/30/21 05:17 Dose 1 mg .ROUTE .STK-MED ONE Sodium Chloride 1,000 mls @ 100 mls/hr 03/30/21 02:00 03/30/21 02:08 Sodium Chloride 0.9% 1000 Ml IV 04/29/21 01:59 100 mls/hr .Q10H KAYLYN Administration Sodium Chloride Confirm 03/30/21 02:06 Sodium Chloride 0.9% 1000 Ml Administered 03/30/21 02:07 Dose 1,000 mls @ ud .ROUTE .STK-MED ONE Magnesium Hydroxide 30 - 60 ml 03/30/21 05:55 Magnesium Hydroxide 30 Ml Udcup PO 04/29/21 05:54 QDP PRN CONSTIPATION Ondansetron HCl 4 mg 03/30/21 05:55 Ondansetron Hcl 4 Mg/2 Ml Vial IV 04/29/21 05:54 Q4H PRN PRN NAUSEA/VOMITING Senna/Docusate Sodium 2 udtab 03/30/21 05:55 Senna/Docusate Sodium 1 Udtab Tablet PO 04/29/21 05:54 BID PRN PRN CONSTIPATION Intake & Output (Last 24 hours) 03/28/21 03/29/21 03/30/21 03/31/21 11:59 11:59 11:59 11:59 Weight 89 kg Laboratory Results (Last 24 hours) 02/16/22 02/16/22 02/16/22 08:36 04:53 04:53 WBC RBC Hgb Hct MCV MCH MCHC RDW Plt Count MPV Gran % Eos # (Auto) Absolute Lymphs (auto) Absolute Monos (auto) Lymphocytes % Monocytes % Eosinophils % Basophils % Absolute Granulocytes Basophils # Sodium Potassium Chloride Carbon Dioxide Anion Gap BUN Creatinine Estimated GFR Glucose Calcium Total Bilirubin AST ALT Alkaline Phosphatase Troponin I < 0.012 < 0.012 Serum Total Protein Albumin Urine Opiates Level Ur Methadone Urine Barbiturates Ur Phencyclidine (PCP) Urine Amphetamine U Benzodiazepine Level Urine Cocaine Urine Marijuana (THC) Influenza Type A Ag NEGATIVE Influenza Type B Ag NEGATIVE RSV (PCR) NEGATIVE SARS-CoV-2 (PCR) NEGATIVE 03/30/21 03/30/21 03/30/21 03:46 02:00 02:00 WBC RBC Hgb Hct MCV MCH MCHC RDW Plt Count MPV Gran % Eos # (Auto) Absolute Lymphs (auto) Absolute Monos (auto) Lymphocytes % Monocytes % Eosinophils % Basophils % Absolute Granulocytes Basophils # Sodium 141 Potassium 3.6 Chloride 106 Carbon Dioxide 28 Anion Gap 11.2 BUN 18 Creatinine 1.41 H Estimated GFR 55.3 Glucose 100 Calcium 8.6 Total Bilirubin 0.40 AST 20 ALT 16 Alkaline Phosphatase 96 Troponin I < 0.012 Serum Total Protein 6.6 Albumin 3.5 Urine Opiates Level NEGATIVE Ur Methadone NEGATIVE Urine Barbiturates NEGATIVE Ur Phencyclidine (PCP) NEGATIVE Urine Amphetamine NEGATIVE U Benzodiazepine Level POSITIVE Urine Cocaine NEGATIVE Urine Marijuana (THC) NEGATIVE Influenza Type A Ag Influenza Type B Ag RSV (PCR) SARS-CoV-2 (PCR) 03/30/21 02:00 WBC 6.8 RBC 3.70 L Hgb 10.8 L Hct 34.5 L MCV 93.2 MCH 29.2 MCHC 31.3 L RDW 19.1 H Plt Count 218 MPV 9.5 Gran % 64.6 Eos # (Auto) 0.08 Absolute Lymphs (auto) 1.94 Absolute Monos (auto) 0.39 Lymphocytes % 28.4 Monocytes % 5.7 Eosinophils % 1.2 Basophils % 0.1 Absolute Granulocytes 4.40 Basophils # 0.01 Sodium Potassium Chloride Carbon Dioxide Anion Gap BUN Creatinine Estimated GFR Glucose Calcium Total Bilirubin AST ALT Alkaline Phosphatase Troponin I Serum Total Protein Albumin Urine Opiates Level Ur Methadone Urine Barbiturates Ur Phencyclidine (PCP) Urine Amphetamine U Benzodiazepine Level Urine Cocaine Urine Marijuana (THC) Influenza Type A Ag Influenza Type B Ag RSV (PCR) SARS-CoV-2 (PCR) Orders (Last 24 hours) Category Date Time Status Bedrest with BRP/BSC ROUTINE Activity 03/30/21 05:55 Completed AGAINST MEDICAL ADVISE [Release AMA] OM.NOW Care 03/30/21 09:20 Completed Mammography Tech STAT Care 03/30/21 01:50 Completed Code Status Order ROUTINE Care 03/30/21 05:55 Completed EKG-ER Only STAT Care 03/30/21 01:49 Completed IV Care Q6H Care 03/30/21 05:55 Completed IV Insertion STAT Care 03/30/21 01:49 Completed Implement Chest Pain Pathway ROUTINE Care 03/30/21 05:[address] in Observation ROUTINE Care 03/30/21 05:55 Completed Pulse Oximetry (ED) STAT Care 03/30/21 01:49 Completed [place] Yonge, Apply ROUTINE Care 03/30/21 05:55 Completed Telemetry q6h Care 03/30/21 05:55 Completed Weight,Daily 0600 Care 03/30/21 05:55 Completed Heart-Healthy Diet Diet 03/30/21 Breakfast Completed HEAD WITHOUT CONTRAST [CT] Stat Exams 03/30/21 02:09 Completed CBC W DIFF Stat Lab 03/30/21 02:00 Completed CMP Stat Lab 03/30/21 02:00 Completed TROPONIN Q3H Lab 03/30/21 02:00 Completed TROPONIN Q3H Lab 03/30/21 04:53 Completed TROPONIN Q3H Lab 03/30/21 08:36 Completed Urine Triage Profile Stat Lab 03/30/21 03:46 Completed Hydromorphone 1 mg/1Ml Inj [Hydromorphone 1 mg/ml Med 03/30/21 04:10 Discontinued Injection] 0.5 mg IV STAT ONE Hydromorphone 1 mg/1Ml Inj [Hydromorphone 1 mg/ml Med 03/30/21 05:01 Discontinued Injection] 0.5 mg IV STAT ONE Hydromorphone 1 mg/1Ml Inj [Hydromorphone 1 mg/ml Med 03/30/21 04:32 Discontinued Injection] 1 mg .ROUTE .STK-MED ONE Hydromorphone 1 mg/1Ml Inj [Hydromorphone 1 mg/ml Med 03/30/21 05:16 Discontinued Injection] 1 mg .ROUTE .STK-MED ONE Mag Hydrox/Al Hydrox/Simeth [Maalox Es 30 ml Unit Med 03/30/21 05:55 Discontinued Dose] 30 ml PO Q4H PRN PRN Magnesium Hydroxide 30 ml [Milk of Magnesia 30 ml Med 03/30/21 05:55 Discontinued ] 30 - 60 ml PO QDP PRN NaCl 0.9% 1000 ml [Sodium Chloride 0.9% 1000 ML] 1,000 Med 03/30/21 02:06 Discontinued ml .ROUTE UD NaCl 0.9% 1000 ml [Sodium Chloride 0.9% 1000 ML] 1,000 Med 03/30/21 02:00 Discontinued ml IV 100 mls/hr Ondansetron HCl 4 mg/2 ml [Zofran 4 MG/2 ML VIAL] Med 03/30/21 05:55 Dis continued 4 mg IV Q4H PRN PRN Senna/Docusate Sodium Tab [Senokot-S Tablet] Med 03/30/21 05:55 Discontinued 2 udtab PO BID PRN PRN EKG ROUTINE RT 03/30/21 09:45 Completed EKG ROUTINE RT 03/31/21 05:00 Completed EKG ROUTINE RT 04/01/21 05:00 Completed RT Screen per Nursing Assess ONCE RT 03/30/21 06:51 Completed Smoking Cessation Education ONCE RT 03/30/21 06:51 Completed Transfer Order Routine Transfer 03/30/21 Completed Patient Care Notes (Last 24 hours) 03/30/21 11:06 Nursing Note by Papito Donald CASE MANAGEMENT INFORMED [facility] OF PT LEAVING AMA Initialized on 03/30/21 11:06 - END OF NOTE 03/30/21 09:56 Nursing Note by Papito Donald PT UPSET THIS MORNING C/O [place] STATING HE WANTS TO GO HOME. EXPLAINED TO HIM THAT THE MD NEEDED TO SEE HIM FIRST. OFFERED TO GET AN ORDER FOR SOMETHING FOR PAIN PT, REFUSED. DR ECHEVERRIA MADE AWARE OF PT BEING UPSET WANTING TO DC, STATES HE WILL BE IN AROUND NOON TO SEE PT. INFORMED PT, HE BECAME MORE UPSET STATING HE WAS NOT WAITING UNTIL NOON HE IS LEAVING NOW HE WILL LEAVE AMA. EXPLAINED TO PT RISKS OF LEAVING AMA, VERBALIZED UNDERSTANDING, AMA PAPER SIGNED. [employer]AILER [employer] MADE AWARE Addendum entered by Papito Donald RN 03/30/21 10:16: CALLED DR ECHEVERRIA MADE AWARE Initialized on 03/30/21 09:56 - END OF NOTE 03/30/21 07:08 (created 03/30/21 08:25) Nursing Note by Ariane Lee I faxed patient's tele-neurology report to 's [place] [facility]. Initialized on 03/30/21 08:25 - END OF NOTE - Vitals & Intake/Output Vital Signs: Vital Signs Temperature 98.0 F 03/30/21 07:43 Pulse Rate 73 03/30/21 07:43 Respiratory Rate 20 03/30/21 07:43 Blood Pressure 162/92 03/30/21 07:43 O2 Sat by Pulse Oximetry 98 03/30/21 07:43 Intake & Output: Intake & Output 03/28/21 03/29/21 03/30/21 03/31/21 11:59 11:59 11:59 11:59 Weight 89 kg - Lab Result Diagrams: 03/30/21 02:00 03/30/21 02:00 Lab Results-Last 24 Hrs: Lab Results-Last 24 Hours 03/30/21 03/30/21 03/30/21 Range/Units 02:00 02:00 02:00 WBC 6.8 (4.0-10.5) K/mm3 RBC 3.70 L (4.1-5.6) M/mm3 Hgb 10.8 L (12.5-18.0) gm/dl Hct 34.5 L (42-50) % MCV 93.2 (78-100) fl MCH 29.2 (26-32) pg MCHC 31.3 L (32-36) g/dl RDW 19.1 H (11.5-14.0) % Plt Count 218 (150-450) K/mm3 MPV 9.5 (7.5-11.0) fl Gran % 64.6 (36.0-66.0) % Eos # (Auto) 0.08 (0-0.5) Absolute Lymphs (auto) 1.94 (1.0-4.6) Absolute Monos (auto) 0.39 (0.0-1.3) Lymphocytes % 28.4 (24.0-44.0) % Monocytes % 5.7 (0.0-12.0) % Eosinophils % 1.2 (0.00-5.0) % Basophils % 0.1 (0.0-0.4) % Absolute Granulocytes 4.40 (1.4-6.9) Basophils # 0.01 (0-0.4) Sodium 141 (137-145) mmol/L Potassium 3.6 (3.5-5.1) mmol/L Chloride 106 (98-107) mmol/L Carbon Dioxide 28 (22-30) mmol/L Anion Gap 11.2 (5-15) MEQ/L BUN 18 (9-20) mg/dL Creatinine 1.41 H (0.66-1.25) mg/dL Estimated GFR 55.3 ML/MIN Glucose 100 (74-106) mg/dL Calcium 8.6 (8.4-10.2) mg/dL Total Bilirubin 0.40 (0.2-1.3) mg/dL AST 20 (17-59) U/L ALT 16 (0-50) U/L Alkaline Phosphatase 96 (38-126) U/L Troponin I < 0.012 (0.000-0.034) ng/mL Serum Total Protein 6.6 (6.3-8.2) g/dL Albumin 3.5 (3.5-5.0) g/dL Urine Opiates Level (NEGATIVE) Ur Methadone (NEGATIVE) Urine Barbiturates (NEGATIVE) Ur Phencyclidine (PCP) (NEGATIVE) Urine Amphetamine (NEGATIVE) U Benzodiazepine Level (NEGATIVE) Urine Cocaine (NEGATIVE) Urine Marijuana (THC) (NEGATIVE) Influenza Type A Ag (NEGATIVE) Influenza Type B Ag (NEGATIVE) RSV (PCR) (Negative) SARS-CoV-2 (PCR) (NEGATIVE) 03/30/21 03/30/21 03/30/21 Range/Units 03:46 04:53 04:53 WBC (4.0-10.5) K/mm3 RBC (4.1-5.6) M/mm3 Hgb (12.5-18.0) gm/dl Hct (42-50) % MCV (78-100) fl MCH (26-32) pg MCHC (32-36) g/dl RDW (11.5-14.0) % Plt Count (150-450) K/mm3 MPV (7.5-11.0) fl Gran % (36.0-66.0) % Eos # (Auto) (0-0.5) Absolute Lymphs (auto) (1.0-4.6) Absolute Monos (auto) (0.0-1.3) Lymphocytes % (24.0-44.0) % Monocytes % (0.0-12.0) % Eosinophils % (0.00-5.0) % Basophils % (0.0-0.4) % Absolute Granulocytes (1.4-6.9) Basophils # (0-0.4) Sodium (137-145) mmol/L Potassium (3.5-5.1) mmol/L Chloride (98-107) mmol/L Carbon Dioxide (22-30) mmol/L Anion Gap (5-15) MEQ/L BUN (9-20) mg/dL Creatinine (0.66-1.25) mg/dL Estimated GFR ML/MIN Glucose (74-106) mg/dL Calcium (8.4-10.2) mg/dL Total Bilirubin (0.2-1.3) mg/dL AST (17-59) U/L ALT (0-50) U/L Alkaline Phosphatase (38-126) U/L Troponin I < 0.012 (0.000-0.034) ng/mL Serum Total Protein (6.3-8.2) g/dL Albumin (3.5-5.0) g/dL Urine Opiates Level NEGATIVE (NEGATIVE) Ur Methadone NEGATIVE (NEGATIVE) Urine Barbiturates NEGATIVE (NEGATIVE) Ur Phencyclidine (PCP) NEGATIVE (NEGATIVE) Urine Amphetamine NEGATIVE (NEGATIVE) U Benzodiazepine Level POSITIVE (NEGATIVE) Urine Cocaine NEGATIVE (NEGATIVE) Urine Marijuana (THC) NEGATIVE (NEGATIVE) Influenza Type A Ag NEGATIVE (NEGATIVE) Influenza Type B Ag NEGATIVE (NEGATIVE) RSV (PCR) NEGATIVE (Negative) SARS-CoV-2 (PCR) NEGATIVE (NEGATIVE) 03/30/21 Range/Units 08:36 WBC (4.0-10.5) K/mm3 RBC (4.1-5.6) M/mm3 Hgb (12.5-18.0) gm/dl Hct (42-50) % MCV (78-100) fl MCH (26-32) pg MCHC (32-36) g/dl RDW (11.5-14.0) % Plt Count (150-450) K/mm3 MPV (7.5-11.0) fl Gran % (36.0-66.0) % Eos # (Auto) (0-0.5) Absolute Lymphs (auto) (1.0-4.6) Absolute Monos (auto) (0.0-1.3) Lymphocytes % (24.0-44.0) % Monocytes % (0.0-12.0) % Eosinophils % (0.00-5.0) % Basophils % (0.0-0.4) % Absolute Granulocytes (1.4-6.9) Basophils # (0-0.4) Sodium (137-145) mmol/L Potassium (3.5-5.1) mmol/L Chloride (98-107) mmol/L Carbon Dioxide (22-30) mmol/L Anion Gap (5-15) MEQ/L BUN (9-20) mg/dL Creatinine (0.66-1.25) mg/dL Estimated GFR ML/MIN Glucose (74-106) mg/dL Calcium (8.4-10.2) mg/dL Total Bilirubin (0.2-1.3) mg/dL AST (17-59) U/L ALT (0-50) U/L Alkaline Phosphatase (38-126) U/L Troponin I < 0.012 (0.000-0.034) ng/mL Serum Total Protein (6.3-8.2) g/dL Albumin (3.5-5.0) g/dL Urine Opiates Level (NEGATIVE) Ur Methadone (NEGATIVE) Urine Barbiturates (NEGATIVE) Ur Phencyclidine (PCP) (NEGATIVE) Urine Amphetamine (NEGATIVE) U Benzodiazepine Level (NEGATIVE) Urine Cocaine (NEGATIVE) Urine Marijuana (THC) (NEGATIVE) Influenza Type A Ag (NEGATIVE) Influenza Type B Ag (NEGATIVE) RSV (PCR) (Negative) SARS-CoV-2 (PCR) (NEGATIVE) - Radiology Exams Ordered Rad Exams-Entire Visit: Radiology Procedures Category Date Time Status HEAD WITHOUT CONTRAST [CT] Stat Exams 02/16/22 02:09 Completed - Procedures and Test Procedures and Tests throughout Hospitalization: Therapy Orders & Screens 03/30/21 06:51 RT Screen per Nursing Assess ONCE Comment: Protocol Order Physician Instructions: Greater than 3 points order RT Admission Screen Reason For Exam: Triggered on Admission Diagnosis: TIA Diagnosis: TIA Pneumonia: No Home O2: No Asthma: No CHF: Yes Home CPAP/BIPAP: No Home Nebs/MDI: Yes Total Points: 8 Smoking Cessation Education ONCE Comment: Diagnosis: TIA Smoking Status: Current every day smoker How long have you smoked: 30 years Have you smoked in the past 12 months: Yes Approximately how many cigarettes per day: 20 Do you dip or chew tobacco: No 03/30/21 09:45 EKG ROUTINE Comment: Diagnosis: TIA 03/31/21 05:00 EKG ROUTINE Comment: Diagnosis: TIA 04/01/21 05:00 EKG ROUTINE Comment: Diagnosis: TIA - Discharge Discharge Date: 03/30/21 Disposition: Against Medical Advice Condition: Stable Prescriptions: No Action ondansetron HCL [Zofran] 4 mg PO Q6HPRN Aspirin 81 gm Chew [Baby Aspirin 81 mg Chew] 81 mg PO DAILY clonazePAM [Clonazepam] 2 mg PO UD PRN PRN Reason: Anxiety Atorvastatin Calcium 1 tab PO HS Tiotropium [place] Inhaler [Spiriva 18 Mcg/Cap Inhaler] 2 puffs IH DAILY Budesonide/Formoterol Fumarate [Budesonide-Formoterol 160-4.5] 2 puffs IH BID Albuterol Sulfate [Proair Digihaler] 2 puff IH QID PRN PRN PRN Reason: Shortness Of Breath/Wheezing Ticagrelor [Brilinta] 90 mg PO BID lisinopriL [Lisinopril] 2.5 mg PO DAILY PRN PRN PRN Reason: Hypertension Fluticasone Propionate [Flovent Diskus] 2 sprays IN DAILY PANTOPRAZOLE 40 mg Tablet [Protonix 40MG Tablet] 80 mg PO BID Loratadine 10 mg [Claritin 10 mg] 10 mg PO DAILY Ranolazine 500 MG [Ranexa 500 MG] 500 mg PO BID Cyanocobalamin 500 Mcg [Vitamin B-12 500 MCG] 1,000 mcg PO DAILY Cholecalciferol (Vitamin D3) [Vitamin D3] 125 mcg PO DAILY Nitroglycerin [Nitrolingual] 1 gm TL Q5MIN PRN MR X 3 PRN PRN Reason: Chest Pain Acetaminophen 500 mg [Tylenol Extra Strength 500 mg] 2,500 mg PO TID Follow up with: [facility]OS[facility],'S [Primary Care Provider] -
== END 2021-03-30 09:30 | disposition left against medical advice (07) ==
LOC: ED 01:27 → MED SURG 05:53
PROVIDERS: ADMIT General Practice; ATTEND General Practice
DX: G45.9 Transient cerebral ischemic attack, unspecified (principal); I25.10 Atherosclerotic heart disease of native coronary artery without angina pectoris; I10 Essential (primary) hypertension; I25.2 Old myocardial infarction; J44.9 Chronic obstructive pulmonary disease, unspecified; F41.9 Anxiety disorder, unspecified; Z72.0 Tobacco use; Z20.828 Contact with and (suspected) exposure to other viral communicable diseases; Z79.899 Other long term (current) drug therapy
CPT/HCPCS: 0241U; 36000; 36415; 70450; 80053; 80307; 84484; 85025; 93005; 93041; 93268; 94760; 96374; 99285; G0378; J1170

== ENCOUNTER 2021-04-02 04:23 | Emergency (ER) | payer OTHER ==
--- NOTE | 2021-04-02 05:01 | ERPHSYRPT ---
<JULITO MANTILLA ÁngelEboni - Last Filed: 04/02/21 06:35> - History of Present Illness Time Seen by Provider: 04/02/21 04:50 Historian: patient Exam Limitations: intoxication Patient Subjective Stated Complaint: pt states he began having mid chest pain a pprox 30 min prior to coming into the er. has some dizziness and has fallen twice tonight. Triage Nursing Assessment: pt alert and oriented, answers questions approp. pt back to er in wheelchair and ambulates to stretcher with steady gait noted. respirations nonlabored with lungs cta. skin warm an ddry. pupils equal and reactive. moves extremities without difficulty. Physician History: This is a 55-year-old white male who smells of alcohol and presents to the emergency department with chest pain that is nonradiating substernal and central. He states it is more of an ache or pressure rather than sharp pain. It is different than the pain he experienced with his other 5 heart attacks. Patient states that late in the evening and early this morning he was having some balance problems and fell and became dizzy. He went to bed and then woke up with the above-stated chest pain. He sprayed t2 nasal sprays of nitroglycerin. It did not help so he sprayed 2 more. It eased the chest pain but did not completely resolve it. The nitroglycerin made his headache worse. He is not short of breath he has no abdominal pain. He has no cough. This is the patient's fourth visit to the emergency department this month. He was here in this emergency department 2 days ago and was evaluated for possible CVA. Timing/Duration: today Activities at Onset: sleep Quality: aching, pressure Location: substernal, central Chest Pain Radiation: no radiation Severity of Pain-Max: moderate Severity of Pain-Current: moderate Modifying Factors: Improves With: nitroglycerin Associated Symptoms: nausea, headache, dizziness, No vomiting, No shortness of breath Prior Chest Pain/Cardiac Workup: cardiac cath, heart attack Nitro Today/Relief: mild relief (After 4 nitroglycerin nasal sprays) Aspirin Treatment Today: no aspirin today Allergies/Adverse Reactions: acetaminophen [From Vicodin] Allergy (Verified 04/02/21 05:05) Rash hydrocodone bitartrate [From Vicodin] Allergy (Verified 04/02/21 05:05) Rash Iodinated Contrast Media Allergy (Verified 04/02/21 05:05) ketorolac [From Toradol] Allergy (Verified 04/02/21 05:05) Penicillins Allergy (Verified 04/02/21 05:05) codeine Adverse Reaction (Verified 04/02/21 05:05) codeine phosphate [From Codar D] Adverse Reaction (Verified 04/02/21 05:05) morphine Adverse Reaction (Verified 04/02/21 05:05) pseudoephedrine HCl [From Codar D] Adverse Reaction (Verified 04/02/21 05:05) Home Medications: Aspirin 81 gm Chew [Baby Aspirin 81 mg Chew] 81 mg PO DAILY 04/11/14 [History] ondansetron HCL [Zofran] 4 mg PO Q6HPRN 04/11/14 [History] Albuterol Sulfate [Proair Digihaler] 2 puff IH QID PRN PRN 09/11/20 [History] Atorvastatin Calcium 1 tab PO HS 09/11/20 [History] Budesonide/Formoterol Fumarate [Budesonide-Formoterol 160-4.5] 2 puffs IH BID 09/11/20 [History] Fluticasone Propionate [Flovent Diskus] 2 sprays IN DAILY 09/11/20 [History] PANTOPRAZOLE 40 mg Tablet [Protonix 40MG Tablet] 80 mg PO BID 09/11/20 [History] Ticagrelor [Brilinta] 90 mg PO BID 09/11/20 [History] Tiotropium [place] Inhaler [Spiriva 18 Mcg/Cap Inhaler] 2 puffs IH DAILY 09/11/20 [History] clonazePAM [Clonazepam] 2 mg PO UD PRN 09/11/20 [History] lisinopriL [Lisinopril] 2.5 mg PO DAILY PRN PRN 09/11/20 [History] Cholecalciferol (Vitamin D3) [Vitamin D3] 125 mcg PO DAILY 03/22/21 [History] Cyanocobalamin 500 Mcg [Vitamin B-12 500 MCG] 1,000 mcg PO DAILY 03/22/21 [History] Loratadine 10 mg [Claritin 10 mg] 10 mg PO DAILY 03/22/21 [History] Ranolazine 500 MG [Ranexa 500 MG] 500 mg PO BID 03/22/21 [History] Acetaminophen 500 mg [Tylenol Extra Strength 500 mg] 2,500 mg PO TID 03/30/21 [History] Nitroglycerin [Nitrolingual] 1 gm TL Q5MIN PRN MR X 3 PRN 03/30/21 [History] Hx Tetanus, Diphtheria Vaccination/Date Given: Yes (unsure) Hx Influenza Vaccination/Date Given: No Hx Pneumococcal Vaccination/Date Given: No Immunizations Up to Date: Yes Travel Risk - International Travel Have you traveled outside of the country in past 3 weeks: No - Coronavirus Screening Are you exhibiting any of the following symptoms?: No Close contact with a COVID-19 positive Pt in past 14-21 Days: No - Vaccine Status Have you recieved a Covid-19 vaccination: Yes [employer]: Moderna - Vaccination Dates Date of 2cond Vaccination (if applicable): Summer 2020 Comment: Had Booster End of 2020 - Review of Systems Constitutional: No Symptoms Eyes: No Symptoms Ears, Nose, & Throat: No Symptoms Respiratory: No Symptoms Cardiac: Chest Pain Abdominal/Gastrointestinal: Nausea, No Abdominal Pain, No Vomiting, No Diarrhea Genitourinary Symptoms: No Symptoms Musculoskeletal: No Symptoms Skin: No Symptoms Neurological: No Symptoms Psychological: No Symptoms Endocrine: No Symptoms Hematologic/Lymphatic: No Symptoms Immunological/Allergic: No Symptoms All Other Systems: Reviewed and Negative - Past Medical History Pertinent Past Medical History: Yes Neurological History: No Pertinent History, TIA ENT History: No Pertinent History Cardiac History: Aneurysm, Coronary Artery Disease, Hypertension, Myocardial Infarction ([place]) Respiratory History: COPD, Emphysema, Sleep Apnea, Other Endocrine Medical History: No Pertinent History Musculoskeletal History: No Pertinent History GI Medical History: No Pertinent History, Hernia History: No Pertinent History Psycho-Social History: Anxiety Male Reproductive Disorders: No Pertinent History Other Medical History: Right lung pnuemo, CHRONIC BACK PAIN. KIDNEY STONES - Past Surgical History Past Surgical History: Yes Neuro Surgical History: No Pertinent History Cardiac: No Pertinent History, Cardiac Catheterization, Cardiac Stent Respiratory: Other Gastrointestinal: No Pertinent History Genitourinary: No Pertinent History Musculoskeletal: Orthopedic Surgery Male Surgical History: No Pertinent History Other Surgical History: R lung cut a 1/4 inch off the top. 1988, back surgery , inspire placement, rt leg fx - Social History Smoking Status: Current every day smoker How long have you smoked: 30 years Exposure to second hand smoke: No Drug Use: none Patient Lives Alone: No - Physical Exam General Appearance: no apparent distress, alert, anxiety Eye Exam: PERRL/EOMI, eyes nml inspection Ears, Nose, Throat Exam: normal ENT inspection, moist mucous membranes Neck Exam: normal inspection, non-tender, supple, full range of motion Respiratory Exam: chest tenderness, lungs clear, airway intact, No normal breath sounds, No respiratory distress Cardiovascular Exam: regular rate/rhythm, normal heart sounds, normal peripheral pulses Gastrointestinal/Abdomen Exam: soft, normal bowel sounds, No tenderness Rectal Exam: not done Back Exam: normal inspection, normal range of motion, No CVA tenderness, No vertebral tenderness Extremity Exam: normal inspection, normal range of motion, pelvis stable Neurologic Exam: alert, oriented x 3, cooperative, 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 There are no acute ischemic changes on today's EKG.) - Progress Progress: improved, re-examined Air Movement: good Progress Note: 04/02/21 06:35 Medical decision making: This patient is having chest pain and his initial troponin level is normal but his D-dimer is over 1200. Patient has had documented CAT scan angiography of the chest in 2014 here at our institution. He had no reaction to the contrast dye. He did state about a year to 2 years ago he had a CAT scan with contrast and he did have a rash. The third time he had a CAT scan of the chest with contrast he was premedicated with Benadryl and steroids. Patient is aware that if he undergoes the CAT scan of the chest with contrast even though he is premedicated, he might still have a reaction. This reaction could be the same as prior CAT scan of the chest with contrast or even worse. Patient understands the above and agrees to proceed with this protective premedication and the CAT scan of the chest with contrast. 04/02/21 06:46 Patient transfer of care to Dr. Lott at shift change. Dr. Lott to follow- up with the results of the CAT scan of the chest and make final disposition. Blood Culture(s) Obtained: No Antibiotics given: No Counseled pt/family regarding: lab results, diagnosis, rad results - Departure Departure Disposition: Home Clinical Impression: Chest pain Condition: Stable Critical Care Time: No Referrals: [facility] [Primary Care Provider] - Follow up/PCP as directed <MODESTA LOTT - Last Filed: 04/02/21 09:45> - Nursing Vital Signs Nursing Vital Signs: Initial Vital Signs Temperature 97.1 F 04/02/21 04:25 Pulse Rate 80 04/02/21 04:25 Respiratory Rate 16 04/02/21 04:25 Blood Pressure 179/101 04/02/21 04:25 O2 Sat by Pulse Oximetry 97 04/02/21 04:25 Pain Scale Pain Intensity 4 - Course Nursing assessment & vital signs reviewed: Yes Ordered Tests: Active Orders 24 hr Category Date Time Status Clean Catch Urine Specimen STAT Care 04/02/21 05:15 Active EKG-ER Only STAT Care 04/02/21 05:00 Active IV Insertion STAT Care 04/02/21 05:00 Active Pulse Oximetry (ED) STAT Care 04/02/21 05:00 Active CHEST 1 VIEW (PORTABLE) Stat Exams 04/02/21 05:02 Completed CHEST WITH CONTRAST [CT] Stat Exams 04/02/21 06:45 Taken HEAD WITHOUT CONTRAST [CT] Stat Exams 04/02/21 05:13 Completed CBC W DIFF Stat Lab 04/02/21 05:13 Completed CMP Stat Lab 04/02/21 05:13 Completed D-DIMER QUANTITATIVE Stat Lab 04/02/21 05:13 Completed ETHYL ALCOHOL Stat Lab 04/02/21 05:13 Completed NT PRO BNP Stat Lab 04/02/21 05:13 Completed PROTIME WITH INR Stat Lab 04/02/21 05:13 Completed TROPONIN Q3H Lab 04/02/21 05:13 Completed TROPONIN Q3H Lab 04/02/21 07:26 Completed TROPONIN Q3H Lab 04/02/21 11:15 Ordered TROPONIN Q3H Lab 04/02/21 14:15 Ordered TROPONIN Q3H Lab 04/02/21 17:15 Ordered Urine Triage Profile Stat Lab 04/02/21 06:45 Completed Medication Summary Discontinued Medications Generic Name Dose Route Start Last Admin Trade Name Gilles PRN Reason Stop Dose Admin Aspirin 324 mg 04/02/21 05:14 04/02/21 05:21 Aspirin 81 Mg Tab.Chew PO 04/02/21 05:15 324 mg STAT ONE Administration Aspirin Confirm 04/02/21 05:22 Aspirin 81 Mg Tab.Chew Administered 04/02/21 05:23 Dose 324 mg .ROUTE .STK-MED ONE Methylprednisolone Sodium 0 mg 04/02/21 06:42 04/02/21 06:52 Succinate 125 mg/ Sterile IV 04/02/21 06:43 125 mg Water 2 ml STAT ONE Administration Diphenhydramine HCl 50 mg 04/02/21 06:43 04/02/21 06:52 Diphenhydramine Hcl 50 Mg/Ml Vial IV 04/02/21 06:44 50 mg STAT ONE Administration Diphenhydramine HCl Confirm 04/02/21 06:49 Diphenhydramine Hcl 50 Mg/Ml Vial Administered 04/02/21 06:50 Dose 50 mg .ROUTE .STK-MED ONE Fentanyl Citrate 100 mcg 04/02/21 07:02 04/02/21 07:35 Fentanyl Citrate 100 Mcg/2 Ml* Vial IV 04/02/21 07:03 100 mcg STAT ONE Administration Fentanyl Citrate Confirm 04/02/21 07:34 Fentanyl Citrate 100 Mcg/2 Ml* Vial Administered 04/02/21 07:35 Dose 100 mcg .ROUTE .STK-MED ONE Hydromorphone HCl 0.5 mg 04/02/21 05:13 04/02/21 05:37 Hydromorphone 1 Mg/1ml Inj 1 Mg/Ml Syringe IV 04/02/21 05:14 0.5 mg STAT ONE Administration Hydromorphone HCl Confirm 04/02/21 05:23 Hydromorphone 1 Mg/1ml Inj 1 Mg/Ml Syringe Administered 04/02/21 05:24 Dose 1 mg .ROUTE .STK-MED ONE Methylprednisolone Sodium Succinate Confirm 04/02/21 06:49 Methylprednis Sod Succ 125 Mg/2 Ml Vial Administered 04/02/21 06:50 Dose 125 mg .ROUTE .STK-MED ONE Ondansetron HCl 4 mg 04/02/21 05:13 04/02/21 05:48 Ondansetron Hcl 4 Mg/2 Ml Vial IV 04/02/21 05:14 4 mg STAT ONE Administration Ondansetron HCl Confirm 04/02/21 05:22 Ondansetron Hcl 4 Mg/2 Ml Vial Administered 04/02/21 05:23 Dose 4 mg .ROUTE .STK-MED ONE Sterile Water Confirm 04/02/21 06:48 Water For Injection,Sterile 10 Ml Vial Administered 04/02/21 06:49 Dose 10 ml IJ .STK-MED ONE Lab/Rad Data: Laboratory Result Diagrams 04/02/21 05:13 04/02/21 05:13 Laboratory Results 04/02/21 04/02/21 04/02/21 Range/Units 07:26 06:45 05:13 WBC (4.0-10.5) K/mm3 RBC (4.1-5.6) M/mm3 Hgb (12.5-18.0) gm/dl Hct (42-50) % MCV (78-100) fl MCH (26-32) pg MCHC (32-36) g/dl RDW (11.5-14.0) % Plt Count (150-450) K/mm3 MPV (7.5-11.0) fl Gran % (36.0-66.0) % Eos # (Auto) (0-0.5) Absolute Lymphs (auto) (1.0-4.6) Absolute Monos (auto) (0.0-1.3) Lymphocytes % (24.0-44.0) % Monocytes % (0.0-12.0) % Eosinophils % (0.00-5.0) % Basophils % (0.0-0.4) % Absolute Granulocytes (1.4-6.9) Basophils # (0-0.4) PT (9.4-12.5) SECONDS INR (0.8-3.0) D-Dimer (215-500) ng/mL Sodium (137-145) mmol/L Potassium (3.5-5.1) mmol/L Chloride (98-107) mmol/L Carbon Dioxide (22-30) mmol/L Anion Gap (5-15) MEQ/L BUN (9-20) mg/dL Creatinine (0.66-1.25) mg/dL Estimated GFR ML/MIN Glucose (74-106) mg/dL Calcium (8.4-10.2) mg/dL Total Bilirubin (0.2-1.3) mg/dL AST (17-59) U/L ALT (0-50) U/L Alkaline Phosphatase (38-126) U/L Troponin I < 0.012 < 0.012 (0.000-0.034) ng/mL NT-Pro-B Natriuret Pep (0-900) pg/mL Serum Total Protein (6.3-8.2) g/dL Albumin (3.5-5.0) g/dL Urine Opiates Level NEGATIVE (NEGATIVE) Ur Methadone NEGATIVE (NEGATIVE) Urine Barbiturates NEGATIVE (NEGATIVE) Ur Phencyclidine (PCP) NEGATIVE (NEGATIVE) Urine Amphetamine NEGATIVE (NEGATIVE) U Benzodiazepine Level POSITIVE (NEGATIVE) Urine Cocaine NEGATIVE (NEGATIVE) Urine Marijuana (THC) NEGATIVE (NEGATIVE) Ethyl Alcohol (0-10) mg/dL 04/02/21 04/02/21 04/02/21 Range/Units 05:13 05:13 05:13 WBC 6.7 (4.0-10.5) K/mm3 RBC 3.91 L (4.1-5.6) M/mm3 Hgb 11.5 L (12.5-18.0) gm/dl Hct 36.3 L (42-50) % MCV 92.8 (78-100) fl MCH 29.4 (26-32) pg MCHC 31.7 L (32-36) g/dl RDW 19.0 H (11.5-14.0) % Plt Count 230 (150-450) K/mm3 MPV 9.2 (7.5-11.0) fl Gran % 69.4 H (36.0-66.0) % Eos # (Auto) 0.07 (0-0.5) Absolute Lymphs (auto) 1.65 (1.0-4.6) Absolute Monos (auto) 0.34 (0.0-1.3) Lymphocytes % 24.5 (24.0-44.0) % Monocytes % 5.0 (0.0-12.0) % Eosinophils % 1.0 (0.00-5.0) % Basophils % 0.1 (0.0-0.4) % Absolute Granulocytes 4.67 (1.4-6.9) Basophils # 0.01 (0-0.4) PT 14.2 H (9.4-12.5) SECONDS INR 1.20 (0.8-3.0) D-Dimer 1240 H* (215-500) ng/mL Sodium 141 (137-145) mmol/L Potassium 3.4 L (3.5-5.1) mmol/L Chloride 105 (98-107) mmol/L Carbon Dioxide 29 (22-30) mmol/L Anion Gap 9.6 (5-15) MEQ/L BUN 13 (9-20) mg/dL Creatinine 1.21 (0.66-1.25) mg/dL Estimated GFR > 60.0 ML/MIN Glucose 101 (74-106) mg/dL Calcium 8.8 (8.4-10.2) mg/dL Total Bilirubin 0.40 (0.2-1.3) mg/dL AST 21 (17-59) U/L ALT 14 (0-50) U/L Alkaline Phosphatase 106 (38-126) U/L Troponin I (0.000-0.034) ng/mL NT-Pro-B Natriuret Pep 509 (0-900) pg/mL Serum Total Protein 6.8 (6.3-8.2) g/dL Albumin 3.6 (3.5-5.0) g/dL Urine Opiates Level (NEGATIVE) Ur Methadone (NEGATIVE) Urine Barbiturates (NEGATIVE) Ur Phencyclidine (PCP) (NEGATIVE) Urine Amphetamine (NEGATIVE) U Benzodiazepine Level (NEGATIVE) Urine Cocaine (NEGATIVE) Urine Marijuana (THC) (NEGATIVE) Ethyl Alcohol < 10 (0-10) mg/dL - Progress Progress: unchanged Progress Note: 04/02/21 09:44 Patient received pain medicine for his headache and his chest pain refused to wait any longer for the results of his CTA of the chest which was done for elevated D-dimer and he signed out AMA - Departure Departure Disposition: AMA
[2021-04-02] MEDS ORDERED: Hydromorphone 1 mg/ml Injection IV ONE (05:13)
[2021-04-02] MEDS ORDERED: Zofran 4 MG/2 ML VIAL IV ONE (05:13)
[2021-04-02] MEDS ORDERED: BABY ASPIRIN 81 MG CHEW PO ONE (05:14)
[2021-04-02 05:16] LABS: Absolute Neutrophil Ct (ANC) 4.67 (1.4-6.9); Basophil (Absolute #) 0.01 (0-0.4); Eosinophil (Absolute #) 0.07 (0-0.5); Hematocrit 36.3 % (42-50); Hemoglobin 11.5 gm/dl (12.5-18.0); Lymphocyte (Absolute #) 1.65 (1.0-4.6); Lymphocytes % 24.5 % (24.0-44.0); Mean Cell Volume 92.8 fl (78-100); Mean Corpuscular Hemoglobin 29.4 pg (26-32); Mean Corpuscular Hgb Concent. 31.7 g/dl (32-36); Mean Platelet Volume 9.2 fl (7.5-11.0); Monocyte (Absolute #) 0.34 (0.0-1.3); Neutrophil % 69.4 % (36.0-66.0); Platelet Count 230 K/mm3 (150-450); Red Blood Count 3.91 M/mm3 (4.1-5.6); White Blood Count 6.7 K/mm3 (4.0-10.5)
[2021-04-02] MEDS ORDERED: BABY ASPIRIN 81 MG CHEW ONE (05:22)
[2021-04-02] MEDS ORDERED: Zofran 4 MG/2 ML VIAL ONE (05:22)
[2021-04-02] MEDS ORDERED: Hydromorphone 1 mg/ml Injection ONE (05:23)
[2021-04-02 05:24] LABS: INR 1.2 (0.8-3.0); PROTIME 14.2 SECONDS (9.4-12.5)
[2021-04-02 05:40] LABS: ALBUMIN 3.6 g/dL (3.5-5.0); ALKALINE PHOSPHATASE 106 U/L (38-126); ANION GAP 9.6 MEQ/L (5-15); BLOOD UREA NITROGEN 13 mg/dL (9-20); CHLORIDE 105 mmol/L (98-107); Calcium 8.8 mg/dL (8.4-10.2); Carbon Dioxide 29 mmol/L (22-30); Creatinine 1 1.21 mg/dL (0.66-1.25); EST GLOMERULAR FILTRATION RATE > 60.0 ML/MIN; ETHYL ALCOHOL < 10 mg/dL (0-10); Glucose 101 mg/dL (74-106); NT PRO BNP 509 pg/mL (0-900); Potassium 3.4 mmol/L (3.5-5.1); SGOT/AST 21 U/L (17-59); SGPT/ALT 14 U/L (0-50); SODIUM 141 mmol/L (137-145); Total Protein 6.8 g/dL (6.3-8.2)
[2021-04-02 06:19] VITALS: BP 155/96
[2021-04-02] MEDS ORDERED: solu-MEDROL 125 MG, Sterile H2O 10 ml 2 ML IV ONE ×2 (06:42)
[2021-04-02] MEDS ORDERED: BENADRYL 50 MG/ML IV ONE (06:43)
[2021-04-02] MEDS ORDERED: Sterile H2O 10 ml IJ ONE (06:48)
[2021-04-02] MEDS ORDERED: solu-MEDROL ONE (06:49)
[2021-04-02] MEDS ORDERED: BENADRYL 50 MG/ML ONE (06:49)
[2021-04-02] MEDS ORDERED: SUBLIMAZE 100 MCG/2 ML IV ONE (07:02)
--- NOTE | 2021-04-02 07:31 | XRAY ---
Indication: Dizziness, loss of balance, and headache. Status post fall. Multiple contiguous axial images obtained through the head without contrast. Comparison: March 30, 2021. Normal appearing brain parenchyma, ventricles, and bony calvarium for patient's age. Visualized paranasal sinuses and mastoid air cells are clear. Impression: Continued normal CT head without contrast exam. Comment: Preliminary interpretation made by [facility]. No critical discrepancy.
--- NOTE | 2021-04-02 07:32 | XRAY ---
Indication: Chest pain. Comparison: April 11, 2014. Portable chest again demonstrates minimal bibasilar fibrosis/scarring. No focal infiltrate, consolidation, or large effusion. Heart and mediastinal structures within normal limits. Bony thorax intact with mild degenerative changes and old right 5 rib fracture. New right vagal stimulator device/lead. Impression: Nonacute chest with chronic features.
[2021-04-02] MEDS ORDERED: SUBLIMAZE 100 MCG/2 ML ONE (07:34)
[2021-04-02 07:43] VITALS: PULSE 69; O2SAT 95
[2021-04-02 07:59] LABS: Cocaine,Urine NEGATIVE (NEGATIVE); Methadone,Urine NEGATIVE (NEGATIVE); Opiate,Urine NEGATIVE (NEGATIVE); PCP,Urine NEGATIVE (NEGATIVE); THC,Urine NEGATIVE (NEGATIVE)
[2021-04-02 08:03] LABS: Amphetamine,Urine NEGATIVE (NEGATIVE); Barbiturate,Urine NEGATIVE (NEGATIVE); Benzodiazepine,Urine POSITIVE (NEGATIVE)
--- NOTE | 2021-04-02 18:31 | XRAY ---
Indication: Chest pain. Elevated d-dimer. Multiple contiguous axial images obtained through the chest using 80 cc of Isovue-370 contrast and PE protocol. Comparison: February 10, 2014 There is good opacification of the pulmonary arteries to include the lobar and segmental branches. No pulmonary embolus. Heart is not enlarged. Aorta is normal in course and caliber with minimal scattered arteriosclerotic calcifications. Stable tiny subcarinal calcified node. No pathologic mediastinal/hilar lymphadenopathy. Stable small hiatal hernia. Lungs again demonstrates diffuse pulmonary emphysema with scattered peripheral fibrosis/scarring and small inferior right upper lobe calcified granuloma. No suspicious pulmonary mass, infiltrate, or effusion. Bony thorax intact again with minimal degenerative changes throughout the spine. Limited upper abdomen again demonstrates a few tiny hepatic/splenic calcified granulomas. Impression: 1. Continued negative pulmonary embolus. No new/acute abnormalities. 2. Again pulmonary emphysema, small hiatal hernia, and old granulomatous disease. Comment: Preliminary interpretation made by [facility]. No critical discrepancy.
== END 2021-04-02 09:47 | disposition left against medical advice (07) ==
LOC: ED 04:23
DX: R11.0 Nausea (principal); I25.10 Atherosclerotic heart disease of native coronary artery without angina pectoris; I10 Essential (primary) hypertension; J43.9 Emphysema, unspecified; Z72.0 Tobacco use; Z79.899 Other long term (current) drug therapy
CPT/HCPCS: 36000; 36415; 70450; 71045; 71260; 80053; 80307; 83880; 84484; 85025; 85379; 85610; 93005; 94760; 96374; 96375; 99285; G0480; J1170; J1200; J2405; J2930; J3010; A9270-GY

== ENCOUNTER 2021-04-15 00:16 | Emergency (ER) | payer OTHER ==
[2021-04-15] MEDS ORDERED: Compazine 10 MG/2 ML IV ONE (00:43)
[2021-04-15] MEDS ORDERED: BENADRYL 50 MG/ML ONE (00:59)
[2021-04-15 01:00] VITALS: O2SAT 98
[2021-04-15] MEDS ORDERED: Compazine 10 MG/2 ML ONE (01:00)
[2021-04-15] MEDS: BENADRYL 50 MG/ML IV ONE ×2 (01:03→01:10)
--- NOTE | 2021-04-15 02:19 | ERPHSYRPT ---
- History of Present Illness Time Seen by Provider: 04/15/21 00:45 Source: patient Exam Limitations: no limitations Patient Subjective Stated Complaint: C/O "Migraine Headache." Patient states that he has had a headache that has lasted approx 5-6 hours today. He states the was in the ER at [facility] on 03/24/21 and was diagnosed with a concussion at that time. Denies N/V, dizziness, or changes in mental status. Triage Nursing Assessment: Patient ambulated back to ED without difficulties. He is alert and oriented and answering questions appropriately. No physical s/s of pain noted at this time. PERRL at 3mm. No weakness noted; FRIED WNL. Physician History: Patient is a 55-year-old male presents to our ED with a migraine headache. Patient states he was diagnosed with a concussion on 03/24/2021 approximately 1 month ago. Patient was advised that he may experience intermittent headaches due to concussion. Patient's headache is frontal. No interval trauma or injuries. No nausea vomiting or diaphoresis. No dizziness. No neck pain photophobia. No fever. Symptoms are mild to moderate in intensity. No specific worsening improving factors. Patient voices no other complaints or concerns at this time. Timing/Duration: today Quality: aching Head Pain Location: frontal Severity of Pain-Max: moderate Severity of Pain-Current: mild Recent Head Trauma: no recent headache/trauma Modifying Factors: Improves With: other (Nothing) Associated Symptoms: No dizziness, No facial pain, No fever/chills, No nasal congestion, No nasal drainage, No neck pain, No numbness in legs/feet, No rash, No sweating, No seizures, No sinus infection, No sensitive to light, No speech problems, No stiff neck, No trouble walking, No vision changes, No visual disturbance, No weakness Previous symptoms: same symptoms as today Allergies/Adverse Reactions: acetaminophen [From Vicodin] Allergy (Verified 04/15/21 00:34) Rash hydrocodone bitartrate [From Vicodin] Allergy (Verified 04/15/21 00:34) Rash Iodinated Contrast Media Allergy (Verified 04/15/21 00:34) ketorolac [From Toradol] Allergy (Verified 04/15/21 00:34) Penicillins Allergy (Verified 04/15/21 00:34) venlafaxine Allergy (Verified 04/15/21 00:34) codeine Adverse Reaction (Verified 04/15/21 00:34) codeine phosphate [From Codar D] Adverse Reaction (Verified 04/15/21 00:34) morphine Adverse Reaction (Verified 04/15/21 00:34) pseudoephedrine HCl [From Codar D] Adverse Reaction (Verified 04/15/21 00:34) Home Medications: Aspirin 81 gm Chew [Baby Aspirin 81 mg Chew] 81 mg PO DAILY 04/11/14 [History] ondansetron HCL [Zofran] 4 mg PO Q6HPRN 04/11/14 [History] Albuterol Sulfate [Proair Digihaler] 2 puff IH QID PRN PRN 09/11/20 [History] Atorvastatin Calcium 1 tab PO HS 09/11/20 [History] Budesonide/Formoterol Fumarate [Budesonide-Formoterol 160-4.5] 2 puffs IH BID 09/11/20 [History] Fluticasone Propionate [Flovent Diskus] 2 sprays IN DAILY 09/11/20 [History] PANTOPRAZOLE 40 mg Tablet [Protonix 40MG Tablet] 80 mg PO BID 09/11/20 [History] Ticagrelor [Brilinta] 90 mg PO BID 09/11/20 [History] Tiotropium [place] Inhaler [Spiriva 18 Mcg/Cap Inhaler] 2 puffs IH DAILY 09/11/20 [History] clonazePAM [Clonazepam] 2 mg PO UD PRN 09/11/20 [History] lisinopriL [Lisinopril] 2.5 mg PO DAILY PRN PRN 09/11/20 [History] Cholecalciferol (Vitamin D3) [Vitamin D3] 125 mcg PO DAILY 03/22/21 [History] Cyanocobalamin 500 Mcg [Vitamin B-12 500 MCG] 1,000 mcg PO DAILY 03/22/21 [History] Loratadine 10 mg [Claritin 10 mg] 10 mg PO DAILY 03/22/21 [History] Ranolazine 500 MG [Ranexa 500 MG] 500 mg PO BID 03/22/21 [History] Acetaminophen 500 mg [Tylenol Extra Strength 500 mg] 2,500 mg PO TID 03/30/21 [History] Nitroglycerin [Nitrolingual] 1 gm TL Q5MIN PRN MR X 3 PRN 03/30/21 [History] Hx Tetanus, Diphtheria Vaccination/Date Given: Yes (unsure) Hx Influenza Vaccination/Date Given: No Hx Pneumococcal Vaccination/Date Given: No Immunizations Up to Date: Yes Travel Risk - International Travel Have you traveled outside of the country in past 3 weeks: No - Coronavirus Screening Are you exhibiting any of the following symptoms?: No Close contact with a COVID-19 positive Pt in past 14-21 Days: No - Vaccine Status Have you recieved a Covid-19 vaccination: Yes [facility] Aide: Moderna - Vaccination Dates Date of 2cond Vaccination (if applicable): Summer 2020 - Review of Systems Constitutional: No Symptoms, No Fever, No Chills Eyes: No Symptoms Ears, Nose, & Throat: No Symptoms Respiratory: No Symptoms, No Cough, No Dyspnea Cardiac: No Symptoms, No Chest Pain, No Edema, No Syncope Abdominal/Gastrointestinal: No Symptoms, No Abdominal Pain, No Nausea, No Vomiting, No Diarrhea Genitourinary Symptoms: No Symptoms, No Dysuria Musculoskeletal: No Symptoms, No Back Pain, No Neck Pain Skin: No Symptoms, No Rash Neurological: No Symptoms, No Dizziness, No Focal Weakness, No Sensory Changes Psychological: No Symptoms Endocrine: No Symptoms Hematologic/Lymphatic: No Symptoms Immunological/Allergic: No Symptoms All Other Systems: Reviewed and Negative - Past Medical History Pertinent Past Medical History: Yes Neurological History: Peripheral Neuropathy, TIA ENT History: No Pertinent History Cardiac History: Aneurysm, Coronary Artery Disease, High Cholesterol, Hypertension, Myocardial Infarction ([place]) Respiratory History: COPD, Emphysema, Sleep Apnea, Other Endocrine Medical History: No Pertinent History Musculoskeletal History: No Pertinent History GI Medical History: Hernia History: No Pertinent History Psycho-Social History: Anxiety Male Reproductive Disorders: No Pertinent History Other Medical History: Right lung pnuemo, CHRONIC BACK PAIN. KIDNEY STONES - Past Surgical History Past Surgical History: Yes Neuro Surgical History: No Pertinent History Cardiac: Cardiac Catheterization, Cardiac Stent Respiratory: Other Gastrointestinal: No Pertinent History Genitourinary: No Pertinent History Musculoskeletal: Orthopedic Surgery Male Surgical History: No Pertinent History Other Surgical History: R lung cut a 1/4 inch off the top. 1988, back surgery , inspire placement, rt leg fx - Social History Smoking Status: Current every day smoker How long have you smoked: 30 years Exposure to second hand smoke: No Drug Use: none Patient Lives Alone: No - Nursing Vital Signs Nursing Vital Signs: Initial Vital Signs Temperature 98.1 F 04/15/21 00:34 Pulse Rate 84 04/15/21 00:34 Respiratory Rate 17 04/15/21 00:34 Blood Pressure 169/106 04/15/21 00:34 O2 Sat by Pulse Oximetry 98 04/15/21 00:34 Pain Scale Pain Intensity 10 - Physical Exam General Appearance: no apparent distress Eye Exam: PERRL/EOMI Ears, Nose, Throat Exam: normal ENT inspection, TMs normal, pharynx normal, moist mucous membranes Neck Exam: normal inspection, supple, full range of motion, No meningismus Respiratory Exam: normal breath sounds, lungs clear, airway intact Cardiovascular Exam: regular rate/rhythm, normal heart sounds, normal peripheral pulses Gastrointestinal/Abdominal Exam: soft, normal bowel sounds, No tenderness, No distention Back Exam: normal inspection, normal range of motion Extremity Exam: normal inspection, normal range of motion Mental Status Exam: alert, oriented x 3, 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 Severe calcified intracranial atherosclerotic vessel disease. Visualized sinuses are unremarkable. Visualized mastoid air cells are aerated.) Ordered Tests: Active Orders 24 hr Category Date Time Status HEAD WITHOUT CONTRAST [CT] Stat Exams 04/15/21 01:12 Taken Medication Summary Discontinued Medications Generic Name Dose Route Start Last Admin Trade Name Freq PRN Reason Stop Dose Admin Diphenhydramine HCl 25 mg 04/15/21 00:44 04/15/21 01:10 Diphenhydramine Hcl 50 Mg/Ml Vial IV 04/15/21 00:45 Not Given STAT ONE Diphenhydramine HCl Confirm 04/15/21 00:59 Diphenhydramine Hcl 50 Mg/Ml Vial Administered 04/15/21 01:00 Dose 50 mg .ROUTE .STK-MED ONE Prochlorperazine Edisylate 10 mg 04/15/21 00:43 04/15/21 01:03 Prochlorperazine Edisylate 10 Mg/2 Ml Vial IV 04/15/21 00:44 10 mg STAT ONE Administration Prochlorperazine Edisylate Confirm 04/15/21 01:00 Prochlorperazine Edisylate 10 Mg/2 Ml Vial Administered 04/15/21 01:01 Dose 10 mg .ROUTE .STK-MED ONE - Progress Progress: improved Air Movement: good Progress Note: Patient reassessed. He received Compazine for pain control. Patient refused Benadryl. Patient has multiple medical allergies. CT head negative for acute intracranial pathology. Patient sleeping comfortably on his bed. Vitals are 158/92, O2 saturations 96%. Heart rate 77. Patient afebrile. Patient requesting discharge. No indication for further work-up at this time. Patient agrees to follow-up with primary care doctor within 48 hours for evaluation. Portions of this note were created with voice recognition technology. There may be grammatical, spelling, punctuation or sound alike errors 04/15/21 02:40 Blood Culture(s) Obtained: No Antibiotics given: No Counseled pt/family regarding: diagnosis, need for follow-up, rad results - Departure Departure Disposition: Home Clinical Impression: Migraine Condition: Stable Critical Care Time: No Referrals: [facility]OS[facility],'[facility] [Primary Care Provider] - Follow up/PCP as directed Additional Instructions: Discharge/Care Plan NIDIA KENT JR was seen on 04/15/21 in the Emergency Room. The patient was counseled regarding Diagnosis,Lab results, Imaging studies, need for follow up a nd when to return to the Emergency Room. Prescriptions given: Discharge Note I have spoken with the patient and/or caregivers. I have explained the patient's condition, diagnosis and treatment plan based on the information available to me at this time. I have answered the patient's and/or caregiver's questions and addressed any concerns. The patient and/or caregivers have as good understanding of the patient's diagnosis, condition and treatment plan as can be expected at this point. The vital signs have been stable. The patient's condition is stable and appropriate for discharge from the emergency department. The patient will pursue further outpatient evaluation with the primary care physician or other designated or consulting physician as outlined in the discharge instructions. The patient and/or caregivers are agreeable to this plan of care and follow-up instructions have been explained in detail. The patient and/or caregivers have received these instruction. The patient/and or caregivers are aware that any significant change in condition or worsening of symptoms should prompt an immediate return to this or the closest emergency department or call 911.
[2021-04-15 02:52] VITALS: BP 158/92; PULSE 79
--- NOTE | 2021-04-15 09:02 | XRAY ---
Indication: Frontal headache. Multiple contiguous axial images obtained through the head without contrast. Comparison: March 30 and April 02, 2021. Normal appearing brain parenchyma, ventricles, and bony calvarium for patient's age. Visualized paranasal sinuses and mastoid air cells remain clear. Impression: Continued normal CT head without contrast exam. Comment: Preliminary interpretation made by [facility]. No critical discrepancy.
== END 2021-04-15 03:00 | disposition home or self-care (01) ==
LOC: ED 00:16
DX: G43.909 Migraine, unspecified, not intractable, without status migrainosus (principal); I25.10 Atherosclerotic heart disease of native coronary artery without angina pectoris; E78.5 Hyperlipidemia, unspecified; I10 Essential (primary) hypertension; J43.9 Emphysema, unspecified; Z72.0 Tobacco use; Z79.899 Other long term (current) drug therapy
CPT/HCPCS: 70450; 96374; 99284; J1200

== ENCOUNTER 2021-04-24 01:53 | Emergency (ER) | payer OTHER ==
--- NOTE | 2021-04-24 03:17 | ERPHSYRPT ---
- History of Present Illness Time Seen by Provider: 04/24/21 03:14 Historian: patient Exam Limitations: no limitations Patient Subjective Stated Complaint: C/O chest pain to center of chest/sternum that radiates to the right side of his chest. Patient states that the pain started at around 8pm last night. He took a "low dose of liquid nitro" at around 10pm with no relief. Triage Nursing Assessment: Patient ambulated back to ED with a slow, steady gait. No SOB noted. Patient able to answer questions without difficulties in full sentences without any need to pause during his speech. Apical heart rate is regular with auscultation. Physician History: C/O chest pain to center of chest/sternum that radiates to the right side of his chest. Patient states that the pain started at around 8pm last night. He took a "low dose of liquid nitro" at around 10pm with no relief. Timing/Duration: yesterday Activities at Onset: none Quality: burning Location: substernal Severity of Pain-Max: mild Severity of Pain-Current: mild Modifying Factors: Improves With: nothing Associated Symptoms: denies symptoms Nitro Today/Relief: 0.4 mg x 1 Aspirin Treatment Today: no aspirin today Body Map: 1 - chest pain Allergies/Adverse Reactions: acetaminophen [From Vicodin] Allergy (Verified 04/24/21 01:56) Rash hydrocodone bitartrate [From Vicodin] Allergy (Verified 04/24/21 01:56) Rash Iodinated Contrast Media Allergy (Verified 04/24/21 01:56) ketorolac [From Toradol] Allergy (Verified 04/24/21 01:56) Penicillins Allergy (Verified 04/24/21 01:56) venlafaxine Allergy (Verified 04/24/21 01:56) codeine Adverse Reaction (Verified 04/24/21 01:56) codeine phosphate [From Codar D] Adverse Reaction (Verified 04/24/21 01:56) morphine Adverse Reaction (Verified 04/24/21 01:56) pseudoephedrine HCl [From Codar D] Adverse Reaction (Verified 04/24/21 01:56) Home Medications: Aspirin 81 gm Chew [Baby Aspirin 81 mg Chew] 81 mg PO DAILY 04/11/14 [History] ondansetron HCL [Zofran] 4 mg PO Q6HPRN 04/11/14 [History] Albuterol Sulfate [Proair Digihaler] 2 puff IH QID PRN PRN 09/11/20 [History] Atorvastatin Calcium 1 tab PO HS 09/11/20 [History] Budesonide/Formoterol Fumarate [Budesonide-Formoterol 160-4.5] 2 puffs IH BID 09/11/20 [History] Fluticasone Propionate [Flovent Diskus] 2 sprays IN DAILY 09/11/20 [History] PANTOPRAZOLE 40 mg Tablet [Protonix 40MG Tablet] 80 mg PO BID 09/11/20 [History] Ticagrelor [Brilinta] 90 mg PO BID 09/11/20 [History] Tiotropium [place] Inhaler [Spiriva 18 Mcg/Cap Inhaler] 2 puffs IH DAILY 09/11/20 [History] clonazePAM [Clonazepam] 2 mg PO UD PRN 09/11/20 [History] lisinopriL [Lisinopril] 2.5 mg PO DAILY PRN PRN 09/11/20 [History] Cholecalciferol (Vitamin D3) [Vitamin D3] 125 mcg PO DAILY 03/22/21 [History] Cyanocobalamin 500 Mcg [Vitamin B-12 500 MCG] 1,000 mcg PO DAILY 03/22/21 [History] Loratadine 10 mg [Claritin 10 mg] 10 mg PO DAILY 03/22/21 [History] Ranolazine 500 MG [Ranexa 500 MG] 500 mg PO BID 03/22/21 [History] Acetaminophen 500 mg [Tylenol Extra Strength 500 mg] 2,500 mg PO TID 03/30/21 [History] Nitroglycerin [Nitrolingual] 1 gm TL Q5MIN PRN MR X 3 PRN 03/30/21 [History] Hx Tetanus, Diphtheria Vaccination/Date Given: Yes (unsure) Hx Influenza Vaccination/Date Given: No Hx Pneumococcal Vaccination/Date Given: No Immunizations Up to Date: Yes Travel Risk - International Travel Have you traveled outside of the country in past 3 weeks: No - Coronavirus Screening Are you exhibiting any of the following symptoms?: No Close contact with a COVID-19 positive Pt in past 14-21 Days: No - Vaccine Status Have you recieved a Covid-19 vaccination: Yes Director Patient: Moderna - Vaccination Dates Date of 2cond Vaccination (if applicable): Summer 2020 - Review of Systems Constitutional: No Fever, No Chills Eyes: No Symptoms Ears, Nose, & Throat: No Symptoms Respiratory: No Cough, No Dyspnea Cardiac: Chest Pain, No Edema, No Syncope Abdominal/Gastrointestinal: No Abdominal Pain, No Nausea, No Vomiting, No Diarrhea Genitourinary Symptoms: No Dysuria Musculoskeletal: No Back Pain, No Neck Pain Skin: No Rash Neurological: No Dizziness, No Focal Weakness, No Sensory Changes Psychological: No Symptoms Endocrine: No Symptoms All Other Systems: Reviewed and Negative - Past Medical History Pertinent Past Medical History: Yes Neurological History: Peripheral Neuropathy, TIA ENT History: No Pertinent History Cardiac History: Aneurysm, Coronary Artery Disease, High Cholesterol, Hypertension, Myocardial Infarction ([place]) Respiratory History: COPD, Emphysema, Pneumonia, Sleep Apnea, Other Endocrine Medical History: No Pertinent History Musculoskeletal History: No Pertinent History GI Medical History: Hernia History: Other Psycho-Social History: Anxiety, Depression Male Reproductive Disorders: No Pertinent History Other Medical History: CHRONIC BACK PAIN. KIDNEY STONES - Past Surgical History Past Surgical History: Yes Neuro Surgical History: No Pertinent History Cardiac: Cardiac Catheterization, Cardiac Stent Respiratory: Other Gastrointestinal: No Pertinent History Genitourinary: No Pertinent History Musculoskeletal: Orthopedic Surgery Male Surgical History: No Pertinent History Other Surgical History: R lung cut a 1/4 inch off the top. 1988, back surgery , inspire placement, rt leg fx - Social History Smoking Status: Current every day smoker How long have you smoked: 30 years Exposure to second hand smoke: No Drug Use: none Patient Lives Alone: No - Nursing Vital Signs Nursing Vital Signs: Initial Vital Signs Temperature 98.5 F 04/24/21 01:56 Pulse Rate 79 04/24/21 01:56 Respiratory Rate 15 04/24/21 01:56 Blood Pressure 166/88 04/24/21 01:56 O2 Sat by Pulse Oximetry 99 04/24/21 01:56 Pain Scale Pain Intensity 6 - Physical Exam General Appearance: no apparent distress, alert Eye Exam: PERRL/EOMI, eyes nml inspection Ears, Nose, Throat Exam: normal ENT inspection, moist mucous membranes Neck Exam: normal inspection, non-tender, supple, full range of motion Respiratory Exam: normal breath sounds, lungs clear, No respiratory distress Cardiovascular Exam: regular rate/rhythm, normal heart sounds Gastrointestinal/Abdomen Exam: soft, No tenderness, No mass Back Exam: normal inspection, No CVA tenderness, No vertebral tenderness Extremity Exam: normal inspection, normal range of motion Neurologic Exam: alert, oriented x 3, cooperative, normal mood/affect, sensation nml, No motor deficits Skin Exam: normal color, warm, dry SpO2: 99 - Course Nursing assessment & vital signs reviewed: Yes EKG Interpreted by Me: Non-specific ST Changes - Radiology Exams Chest X-ray Interpretation: Reviewed by me, Negative, No Pneumonia, No Pneumothorax Ordered Tests: Active Orders 24 hr Category Date Time Status EKG-ER Only STAT Care 04/24/21 03:13 Active CHEST 1 VIEW (PORTABLE) Stat Exams 04/24/21 03:13 Taken CBC W DIFF Stat Lab 04/24/21 03:23 Completed CMP Stat Lab 04/24/21 03:23 Completed NT PRO BNP Stat Lab 04/24/21 03:23 Completed TROPONIN Q3H Lab 04/24/21 03:23 Received TROPONIN Q3H Lab 04/24/21 06:15 Ordered TROPONIN Q3H Lab 04/24/21 09:15 Ordered TROPONIN Q3H Lab 04/24/21 12:15 Ordered TROPONIN Q3H Lab 04/24/21 15:15 Ordered Lab/Rad Data: Laboratory Result Diagrams 04/24/21 03:23 04/24/21 03:23 Laboratory Results 04/24/21 04/24/21 Range/Units 03:23 03:23 WBC 8.2 (4.0-10.5) K/mm3 RBC 4.04 L (4.1-5.6) M/mm3 Hgb 12.3 L (12.5-18.0) gm/dl Hct 38.1 L (42-50) % MCV 94.3 (78-100) fl MCH 30.4 (26-32) pg MCHC 32.3 (32-36) g/dl RDW 18.7 H (11.5-14.0) % Plt Count 222 (150-450) K/mm3 MPV 9.5 (7.5-11.0) fl Gran % 73.2 H (36.0-66.0) % Eos # (Auto) 0.11 (0-0.5) Absolute Lymphs (auto) 1.49 (1.0-4.6) Absolute Monos (auto) 0.58 (0.0-1.3) Lymphocytes % 18.3 L (24.0-44.0) % Monocytes % 7.1 (0.0-12.0) % Eosinophils % 1.3 (0.00-5.0) % Basophils % 0.1 (0.0-0.4) % Absolute Granulocytes 5.97 (1.4-6.9) Basophils # 0.01 (0-0.4) Sodium 142 (137-145) mmol/L Potassium 3.5 (3.5-5.1) mmol/L Chloride 107 (98-107) mmol/L Carbon Dioxide 29 (22-30) mmol/L Anion Gap 9.1 (5-15) MEQ/L BUN 13 (9-20) mg/dL Creatinine 1.19 (0.66-1.25) mg/dL Estimated GFR > 60.0 ML/MIN Glucose 118 H (74-106) mg/dL Calcium 9.0 (8.4-10.2) mg/dL Total Bilirubin 0.40 (0.2-1.3) mg/dL AST 18 (17-59) U/L ALT 12 (0-50) U/L Alkaline Phosphatase 100 (38-126) U/L NT-Pro-B Natriuret Pep 745 (0-900) pg/mL Serum Total Protein 6.7 (6.3-8.2) g/dL Albumin 3.5 (3.5-5.0) g/dL - Progress Progress: improved Air Movement: good Blood Culture(s) Obtained: No Antibiotics given: No Counseled pt/family regarding: lab results, diagnosis, need for follow-up, rad results - Departure Departure Disposition: Home Clinical Impression: Chest pain Qualifiers: Chest pain type: unspecified Qualified Code(s): R07.9 - Chest pain, unspecified Condition: Stable Critical Care Time: Yes Critical Care Time(excluding separately billable procedures): Critical 30-74 mins Referrals: [facility] [Primary Care Provider] - Follow up/PCP as directed Instructions: Chest Pain (DC) Additional Instructions: Discharge/Care Plan NIDIA KENT JR was seen on 04/24/21 in the Emergency Room. The patient was counseled regarding Diagnosis,Lab results, Imaging studies, need for follow up and when to return to the Emergency Room. Prescriptions given: Discharge Note I have spoken with the patient and/or caregivers. I have explained the patient's condition, diagnosis and treatment plan based on the information available to me at this time. I have answered the patient's and/or caregiver's questions and addressed any concerns. The patient and/or caregivers have as good understanding of the patient's diagnosis, condition and treatment plan as can be expected at this point. The vital signs have been stable. The patient's condition is stable and appropriate for discharge from the emergency department. The patient will pursue further outpatient evaluation with the primary care physician or other designated or consulting physician as outlined in the discharge instructions. The patient and/or caregivers are agreeable to this plan of care and follow-up instructions have been explained in detail. The patient and/or caregivers have received these instruction. The patient/and or caregivers are aware that any significant change in condition or worsening of symptoms should prompt an immediate return to this or the closest emergency department or call 911. NIDIA KENT JR was seen on 04/24/21 n the Emergency Room. At that time you were treated for an emergent condition, during your visit Laboratory, Radiology and/or other procedures may have been ordered. It is very important that you follow-up with your Primary Care Physician [facility] within the next 24-48 hours to review your Emergency Room visit and the final results of testing that was ordered. Some test results such as Urine Cultures, Blood Cultures, and other cultures if ordered will not be finalized for 24-48 hours. If you do not have a Primary Care Provider please call the medical records department at [phone] to obtain a copy of your results or you may sign into our patient portal to obtain these results by visiting us @ [email or web address] and completing the following steps: 1. Click on the Patient Portal link 2. Click the Patient Self Enrollment Link to complete the enrollment form and e ntering your 3. Once the enrollment form is completed you will receive an email with a temporary ID and password at the email address you provided. 4. Next choose a user name and password. Your user name must be at least 4 characters long and your password must be at least 4 characters long. 5. Choose a security question from the list and provide your answer to the question. If you already have signed into the Health Portal you may access your Health Care Information 04/09 by the following steps: 1. Login to our website @ [email or web address] 2. Enter your original user name and password. FAQS The [facility] Health Portal is an online tool that contains your Lab Results, Radiology Reports, Visit History, Discharge Instructions and Health Summary Lab and Radiology Results will not be available for 72 hours on the portal. The Portal is a secure site, passwords are encryted and URLs are re-written so they cannot be copied and pasted. You and authorized family members are the only ones who can access your Portal. Also there is a timeout feature that protects your information if you leave the Portal page open. If you have technical difficulty please use the Contact Us link on the page this will allow you to submit any questions you have regarding the Portal or you may contact the Medical Record Department at [phone] ext [phone].
[2021-04-24 03:29] LABS: Absolute Neutrophil Ct (ANC) 5.97 (1.4-6.9); Basophil (Absolute #) 0.01 (0-0.4); Eosinophil % 1.3 % (0.00-5.0); Eosinophil (Absolute #) 0.11 (0-0.5); Hematocrit 38.1 % (42-50); Hemoglobin 12.3 gm/dl (12.5-18.0); Lymphocyte (Absolute #) 1.49 (1.0-4.6); Lymphocytes % 18.3 % (24.0-44.0); Mean Cell Volume 94.3 fl (78-100); Mean Corpuscular Hemoglobin 30.4 pg (26-32); Mean Corpuscular Hgb Concent. 32.3 g/dl (32-36); Mean Platelet Volume 9.5 fl (7.5-11.0); Monocyte (Absolute #) 0.58 (0.0-1.3); Monocytes % 7.1 % (0.0-12.0); Neutrophil % 73.2 % (36.0-66.0); Platelet Count 222 K/mm3 (150-450); Red Blood Count 4.04 M/mm3 (4.1-5.6); Red Cell Distribution Width 18.7 % (11.5-14.0); White Blood Count 8.2 K/mm3 (4.0-10.5)
[2021-04-24 03:48] LABS: ALBUMIN 3.5 g/dL (3.5-5.0); ALKALINE PHOSPHATASE 100 U/L (38-126); ANION GAP 9.1 MEQ/L (5-15); BLOOD UREA NITROGEN 13 mg/dL (9-20); CHLORIDE 107 mmol/L (98-107); Carbon Dioxide 29 mmol/L (22-30); Creatinine 1 1.19 mg/dL (0.66-1.25); EST GLOMERULAR FILTRATION RATE > 60.0 ML/MIN; Glucose 118 mg/dL (74-106); NT PRO BNP 745 pg/mL (0-900); Potassium 3.5 mmol/L (3.5-5.1); SGOT/AST 18 U/L (17-59); SGPT/ALT 12 U/L (0-50); SODIUM 142 mmol/L (137-145); Total Protein 6.7 g/dL (6.3-8.2)
[2021-04-24 03:56] VITALS: BP 162/98; PULSE 74; O2SAT 97
--- NOTE | 2021-04-24 08:18 | XRAY ---
Indication: Chest pain. Comparison: April 02, 2021. Portable chest unchanged again hyperinflated with minimal bibasilar fibrosis/scarring. Remaining heart and lungs unremarkable. Bony thorax intact again with mild osteopenia, degenerative changes, and right vagal stimulator device/lead. No new/acute abnormalities.
== END 2021-04-24 04:04 | disposition home or self-care (01) ==
LOC: ED 01:53
DX: R07.9 Chest pain, unspecified (principal); I25.10 Atherosclerotic heart disease of native coronary artery without angina pectoris; E78.5 Hyperlipidemia, unspecified; I10 Essential (primary) hypertension; I25.2 Old myocardial infarction; Z72.0 Tobacco use; J44.9 Chronic obstructive pulmonary disease, unspecified; Z79.899 Other long term (current) drug therapy
CPT/HCPCS: 36000; 36415; 71045; 80053; 83880; 84484; 85025; 93005; 99284; 99291

== ENCOUNTER 2021-08-08 23:37 | Emergency (ER) | payer OTHER ==
--- NOTE | 2021-08-08 23:49 | ERPHSYRPT ---
- History of Present Illness Time Seen by Provider: 08/08/21 23:49 Source: patient Exam Limitations: no limitations Physician History: This is a 55-year-old white male patient who has chronic back pain history as well as back surgery in the distant past and presents with back pain that occurred this evening after crawling in his crawl space at home. Patient used to see Dr. Michael who is a pain specialist. However, he states he does not see him anymore because he cannot prescribe pain medication along with the patient's Klonopin he is on for anxiety. Patient has been in this emergency department several times for various pain issues. Patient has a history of TIAs, coronary artery disease/OR, COPD, sleep apnea and hypertension. Patient has no shortness of breath and he has no chest pain at this time. He has no abdominal pain. Patient refuses steroids he says because it messes his system. Patient takes acetaminophen daily. Patient states he cannot take oxycodone/acetaminophen but he is unable to take hydrocodone and codeine medication. Patient did not suffer any acute traumatic fall or blunt trauma to his back. Timing/Duration: today Method of Injury: bending Back Pain Location: paraspinous muscles Severity of Pain-Max: moderate Severity of Pain-Current: moderate Associated Symptoms: lower back pain, No urinary incontinence, No loss of bowel control, No numbness in legs/feet Previous symptoms: same symptoms as today Allergies/Adverse Reactions: acetaminophen [From Vicodin] Allergy (Verified 08/09/21 00:19) Rash hydrocodone bitartrate [From Vicodin] Allergy (Verified 08/09/21 00:19) Rash Iodinated Contrast Media Allergy (Verified 08/09/21 00:19) ketorolac [From Toradol] Allergy (Verified 08/09/21 00:19) Penicillins Allergy (Verified 08/09/21 00:19) venlafaxine Allergy (Verified 08/09/21 00:19) codeine Adverse Reaction (Verified 08/09/21 00:19) codeine phosphate [From Codar D] Adverse Reaction (Verified 08/09/21 00:19) morphine Adverse Reaction (Verified 08/09/21 00:19) pseudoephedrine HCl [From Codar D] Adverse Reaction (Verified 08/09/21 00:19) Home Medications: Aspirin 81 gm Chew [Baby Aspirin 81 mg Chew] 81 mg PO DAILY 04/11/14 [History] ondansetron HCL [Zofran] 4 mg PO Q6HPRN 04/11/14 [History] Albuterol Sulfate [Proair Digihaler] 2 puff IH QID PRN PRN 09/11/20 [History] Atorvastatin Calcium 1 tab PO HS 09/11/20 [History] Budesonide/Formoterol Fumarate [Budesonide-Formoterol 160-4.5] 2 puffs IH BID 09/11/20 [History] Fluticasone Propionate [Flovent Diskus] 2 sprays IN DAILY 09/11/20 [History] PANTOPRAZOLE 40 mg Tablet [Protonix 40MG Tablet] 80 mg PO BID 09/11/20 [History] Ticagrelor [Brilinta] 90 mg PO BID 09/11/20 [History] Tiotropium [place] Inhaler [Spiriva 18 Mcg/Cap Inhaler] 2 puffs IH DAILY 09/11/20 [History] clonazePAM [Clonazepam] 2 mg PO UD PRN 09/11/20 [History] lisinopriL [Lisinopril] 2.5 mg PO DAILY PRN PRN 09/11/20 [History] Cholecalciferol (Vitamin D3) [Vitamin D3] 125 mcg PO DAILY 03/22/21 [History] Cyanocobalamin 500 Mcg [Vitamin B-12 500 MCG] 1,000 mcg PO DAILY 03/22/21 [History] Loratadine 10 mg [Claritin 10 mg] 10 mg PO DAILY 03/22/21 [History] Ranolazine 500 MG [Ranexa 500 MG] 500 mg PO BID 03/22/21 [History] Acetaminophen 500 mg [Tylenol Extra Strength 500 mg] 2,500 mg PO TID 03/30/21 [History] Nitroglycerin [Nitrolingual] 1 gm TL Q5MIN PRN MR X 3 PRN 03/30/21 [History] Hx Tetanus, Diphtheria Vaccination/Date Given: Yes (unsure) Hx Influenza Vaccination/Date Given: No Hx Pneumococcal Vaccination/Date Given: No Travel Risk - International Travel Have you traveled outside of the country in past 3 weeks: No - Coronavirus Screening Are you exhibiting any of the following symptoms?: No Close contact with a COVID-19 positive Pt in past 14-21 Days: No - Vaccine Status Have you recieved a Covid-19 vaccination: Yes Reimbursement Liaison: Moderna - Vaccination Dates Date of 2cond Vaccination (if applicable): Summer 2020 - Review of Systems Constitutional: No Symptoms Eyes: No Symptoms Ears, Nose, & Throat: No Symptoms Respiratory: No Symptoms Cardiac: No Symptoms Abdominal/Gastrointestinal: No Symptoms Genitourinary Symptoms: No Symptoms Musculoskeletal: Back Pain Skin: No Symptoms Neurological: No Symptoms Psychological: No Symptoms Endocrine: No Symptoms Hematologic/Lymphatic: No Symptoms Immunological/Allergic: No Symptoms All Other Systems: Reviewed and Negative - Past Medical History Pertinent Past Medical History: Yes Neurological History: Peripheral Neuropathy, TIA ENT History: No Pertinent History Cardiac History: Aneurysm, Coronary Artery Disease, High Cholesterol, Hypertension, Myocardial Infarction ([place]) Respiratory History: COPD, Emphysema, Pneumonia, Sleep Apnea, Other Endocrine Medical History: No Pertinent History Musculoskeletal History: No Pertinent History GI Medical History: Hernia History: Other Psycho-Social History: Anxiety, Depression Male Reproductive Disorders: No Pertinent History Other Medical History: CHRONIC BACK PAIN. KIDNEY STONES - Past Surgical History Past Surgical History: Yes Neuro Surgical History: No Pertinent History Cardiac: Cardiac Catheterization, Cardiac Stent Respiratory: Other Gastrointestinal: No Pertinent History Genitourinary: No Pertinent History Musculoskeletal: Orthopedic Surgery Male Surgical History: No Pertinent History Other Surgical History: R lung cut a 1/4 inch off the top. 1988, back surgery , inspire placement, rt leg fx - Social History Smoking Status: Current every day smoker How long have you smoked: 30 years Exposure to second hand smoke: No Drug Use: none Patient Lives Alone: No - Nursing Vital Signs Nursing Vital Signs: Initial Vital Signs Temperature 97.5 F 08/09/21 00:10 Pulse Rate 61 08/09/21 00:10 Respiratory Rate 18 08/09/21 00:10 Blood Pressure 176/96 08/09/21 00:10 O2 Sat by Pulse Oximetry 98 08/09/21 00:10 Pain Scale Pain Intensity 8 - Physical Exam General Appearance: no apparent distress, alert, anxiety Eye Exam: PERRL/EOMI, eyes nml inspection Ears, Nose, Throat Exam: normal ENT inspection, moist mucous membranes Neck Exam: normal inspection, non-tender, supple, full range of motion Respiratory Exam: airway intact, No chest tenderness, No respiratory distress Cardiovascular Exam: normal peripheral pulses Gastrointestinal Exam: No tenderness Rectal Exam: not done Back Exam: normal inspection, normal range of motion, muscle spasm, No CVA tenderness, No vertebral tenderness Extremity Exam: normal inspection, normal range of motion, pelvis stable Neurologic Exam: alert, oriented x 3, cooperative, grassroots organizer II-XII nml as tested, normal mood/affect, nml cerebellar function, nml station & gait, sensation nml Skin Exam: normal color, warm, dry Lymphatic Exam: No adenopathy SpO2 Interpretation: normal O2 Delivery: Room Air - Course Nursing assessment & vital signs reviewed: Yes - Progress Progress: improved, pain not gone completely Progress Note: 08/09/21 00:39 Medical decision making: This patient has chronic back pain issues. He states he is very particular with what he takes in his body to treat his back pain. He no longer uses his pain specialist. He states that he can take oxycodone/acetaminophen for his pain. I will provide him with a single dose of Norflex orally and oxycodone this evening and then he will follow-up with his primary care physician for further evaluation and management of his chronic back pain issues Counseled pt/family regarding: diagnosis, need for follow-up - Departure Departure Disposition: Home Clinical Impression: Acute exacerbation of chronic low back pain Condition: Stable Critical Care Time: No Referrals: [facility] [Primary Care Provider] - Follow up/PCP as directed Additional Instructions: Take all your medications as prescribed. Follow-up with your primary prescribing physician today, 08/09/2021 for further evaluation and management of your back pain
[2021-08-09 00:19] VITALS: O2SAT 98
[2021-08-09] MEDS ORDERED: Norflex 100 MG Tablet PO ONE (00:41)
[2021-08-09] MEDS ORDERED: OXYCODONE-ACETAMINOPHEN 10-325 PO STA (00:41)
[2021-08-09 01:12] VITALS: BP 146/77; PULSE 98
[2021-08-09] MEDS ORDERED: OXYCODONE-ACETAMINOPHEN 10-325 ONE (01:16)
== END 2021-08-09 01:20 | disposition home or self-care (01) ==
LOC: ED 23:37
DX: G89.29 Other chronic pain (principal); M54.50 Low back pain, unspecified; E78.5 Hyperlipidemia, unspecified; I10 Essential (primary) hypertension; J43.9 Emphysema, unspecified; Z72.0 Tobacco use; Z79.02 Long term (current) use of antithrombotics/antiplatelets; Z79.899 Other long term (current) drug therapy
CPT/HCPCS: 99283; A9270-GY

== ENCOUNTER 2021-08-27 02:04 | Emergency (ER) | payer OTHER ==
--- NOTE | 2021-08-27 02:32 | ERPHSYRPT ---
- History of Present Illness Time Seen by Provider: 08/27/21 02:25 Source: patient Exam Limitations: no limitations Patient Subjective Stated Complaint: neck and back pain, burning in bilateral legs, chest dyscomfort Triage Nursing Assessment: Patient alert and oriented. Skin color normal for race. Respirations unlabored. Patient ambulated self from waiting room to ED room. Allergies/Adverse Reactions: acetaminophen [From Vicodin] Allergy (Verified 08/27/21 02:14) Rash hydrocodone bitartrate [From Vicodin] Allergy (Verified 08/27/21 02:14) Rash Iodinated Contrast Media Allergy (Verified 08/27/21 02:14) ketorolac [From Toradol] Allergy (Verified 08/27/21 02:14) Penicillins Allergy (Verified 08/27/21 02:14) venlafaxine Allergy (Verified 08/27/21 02:14) codeine Adverse Reaction (Verified 08/27/21 02:14) codeine phosphate [From Codar D] Adverse Reaction (Verified 08/27/21 02:14) morphine Adverse Reaction (Verified 08/27/21 02:14) pseudoephedrine HCl [From Codar D] Adverse Reaction (Verified 08/27/21 02:14) Home Medications: Aspirin 81 gm Chew [Baby Aspirin 81 mg Chew] 81 mg PO DAILY 04/11/14 [History] ondansetron HCL [Zofran] 4 mg PO Q6HPRN 04/11/14 [History] Albuterol Sulfate [Proair Digihaler] 2 puff IH QID PRN PRN 09/11/20 [History] Atorvastatin Calcium 1 tab PO HS 09/11/20 [History] Budesonide/Formoterol Fumarate [Budesonide-Formoterol 160-4.5] 2 puffs IH BID 09/11/20 [History] Fluticasone Propionate [Flovent Diskus] 2 sprays IN DAILY 09/11/20 [History] PANTOPRAZOLE 40 mg Tablet [Protonix 40MG Tablet] 80 mg PO BID 09/11/20 [History] Ticagrelor [Brilinta] 90 mg PO BID 09/11/20 [History] Tiotropium [place] Inhaler [Spiriva 18 Mcg/Cap Inhaler] 2 puffs IH DAILY 09/11/20 [History] clonazePAM [Clonazepam] 2 mg PO UD PRN 09/11/20 [History] lisinopriL [Lisinopril] 2.5 mg PO DAILY PRN PRN 09/11/20 [History] Cholecalciferol (Vitamin D3) [Vitamin D3] 125 mcg PO DAILY 03/22/21 [History] Cyanocobalamin 500 Mcg [Vitamin B-12 500 MCG] 1,000 mcg PO DAILY 03/22/21 [History] Loratadine 10 mg [Claritin 10 mg] 10 mg PO DAILY 03/22/21 [History] Ranolazine 500 MG [Ranexa 500 MG] 500 mg PO BID 03/22/21 [History] Acetaminophen 500 mg [Tylenol Extra Strength 500 mg] 2,500 mg PO TID 03/30/21 [History] Nitroglycerin [Nitrolingual] 1 gm TL Q5MIN PRN MR X 3 PRN 03/30/21 [History] Hx Tetanus, Diphtheria Vaccination/Date Given: Yes (unsure) Hx Influenza Vaccination/Date Given: No Hx Pneumococcal Vaccination/Date Given: No Travel Risk - International Travel Have you traveled outside of the country in past 3 weeks: No - Coronavirus Screening Are you exhibiting any of the following symptoms?: No Close contact with a COVID-19 positive Pt in past 14-21 Days: No - Vaccine Status Have you recieved a Covid-19 vaccination: Yes 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 - Vaccination Dates Date of 2cond Vaccination (if applicable): Summer 2020 - Past Medical History Pertinent Past Medical History: Yes Neurological History: Peripheral Neuropathy, TIA ENT History: No Pertinent History Cardiac History: Aneurysm, Coronary Artery Disease, High Cholesterol, Hypertension, Myocardial Infarction ([place]) Respiratory History: COPD, Emphysema, Pneumonia, Sleep Apnea, Other Endocrine Medical History: No Pertinent History Musculoskeletal History: No Pertinent History GI Medical History: Hernia History: Other Psycho-Social History: Anxiety Male Reproductive Disorders: No Pertinent History Other Medical History: CHRONIC BACK PAIN. KIDNEY STONES - Past Surgical History Past Surgical History: Yes Neuro Surgical History: No Pertinent History Cardiac: Cardiac Catheterization, Cardiac Stent Respiratory: Other Gastrointestinal: No Pertinent History Genitourinary: No Pertinent History Musculoskeletal: Orthopedic Surgery Male Surgical History: No Pertinent History Other Surgical History: R lung cut a 1/4 inch off the top. 1989, back surgery , inspire placement, rt leg fx - Social History Smoking Status: Current every day smoker How long have you smoked: 47 years Exposure to second hand smoke: No Drug Use: none Patient Lives Alone: No - Nursing Vital Signs Nursing Vital Signs: Initial Vital Signs Pulse Rate 78 08/27/21 02:14 Respiratory Rate 16 08/27/21 02:14 Blood Pressure 166/99 08/27/21 02:14 O2 Sat by Pulse Oximetry 98 08/27/21 02:14 Pain Scale Pain Intensity [Neck, Back] 8 Pain Intensity 8 - Physical Exam SpO2: 98 Ordered Tests: Active Orders 24 hr Category Date Time Status Washer Meat STAT Care 08/27/21 02:40 Active EKG-ER Only STAT Care 08/27/21 02:40 Active EKG-ER Only STAT Care 08/27/21 06:15 Active IV Insertion STAT Care 08/27/21 02:40 Active Pulse Oximetry (ED) STAT Care 08/27/21 02:40 Active CBC W DIFF Stat Lab 08/27/21 03:05 Completed CMP Stat Lab 08/27/21 03:05 Completed TROPONIN Q3H Lab 08/27/21 03:05 Completed TROPONIN Q3H Lab 08/27/21 05:45 Ordered TROPONIN Q3H Lab 08/27/21 08:45 Ordered TROPONIN Q3H Lab 08/27/21 11:45 Ordered TROPONIN Q3H Lab 08/27/21 14:45 Ordered Medication Summary Discontinued Medications Generic Name Dose Route Start Last Admin Trade Name Freq PRN Reason Stop Dose Admin Hydromorphone HCl 1 mg 08/27/21 03:31 08/27/21 03:44 Hydromorphone 1 Mg/1ml Inj 1 Mg/Ml Syringe IV 08/27/21 03:32 1 mg STAT ONE Administration Hydromorphone HCl Confirm 08/27/21 03:39 Hydromorphone 1 Mg/1ml Inj 1 Mg/Ml Syringe Administered 08/27/21 03:40 Dose 1 mg .ROUTE .STK-MED ONE Ondansetron HCl 4 mg 08/27/21 03:31 08/27/21 03:45 Ondansetron Hcl 4 Mg/2 Ml Vial IV 08/27/21 03:32 4 mg STAT ONE Administration Ondansetron HCl Confirm 08/27/21 03:38 Ondansetron Hcl 4 Mg/2 Ml Vial Administered 08/27/21 03:39 Dose 4 mg .ROUTE .[facility]-MED ONE Lab/Rad Data: Laboratory Result Diagrams 08/27/21 03:05 08/27/21 03:05 Laboratory Results 08/27/21 08/27/21 08/27/21 Range/Units 03:05 03:05 03:05 WBC 10.4 (4.0-10.5) x10^3/uL RBC 4.08 L (4.1-5.6) x10^6/uL Hgb 12.6 (12.5-18.0) g/dL Hct 39.1 L (42-50) % MCV 95.8 (78-100) fL MCH 30.9 (26-32) pg MCHC 32.2 (32-36) g/dL RDW 15.2 H (11.5-14.0) % Plt Count 183 (150-450) x10^3/uL MPV 9.0 (7.5-11.0) fL Gran % 77.8 H (36.0-66.0) % Immature Gran % (Auto) 0.4 (0.00-0.4) % Nucleat RBC Rel Count 0.0 (0.00-0.1) % Eos # (Auto) 0.10 (0-0.5) x10^3/uL Immature Gran # (Auto) 0.04 H (0.00-0.03) x10^3u/L Absolute Lymphs (auto) 1.55 (1.0-4.6) x10^3/uL Absolute Monos (auto) 0.57 (0.0-1.3) x10^3/uL Absolute Nucleated RBC 0.00 (0.00-0.01) x10^3u/L Lymphocytes % 14.9 L (24.0-44.0) % Monocytes % 5.5 (0.0-12.0) % Eosinophils % 1.0 (0.00-5.0) % Basophils % 0.4 (0.0-0.4) % Absolute Granulocytes 8.08 H (1.4-6.9) x10^3/uL Basophils # 0.04 (0-0.4) x10^3/uL Sodium 137 (137-145) mmol/L Potassium 3.9 (3.5-5.1) mmol/L Chloride 103 (98-107) mmol/L Carbon Dioxide 27 (22-30) mmol/L Anion Gap 10.4 (5-15) MEQ/L BUN 11 (9-20) mg/dL Creatinine 1.21 (0.66-1.25) mg/dL Estimated GFR > 60.0 ML/MIN Glucose 92 (74-106) mg/dL Calcium 8.9 (8.4-10.2) mg/dL Total Bilirubin 0.60 (0.2-1.3) mg/dL AST 18 (17-59) U/L ALT 12 (0-50) U/L Alkaline Phosphatase 98 (38-126) U/L Troponin I < 0.012 (0.000-0.034) ng/mL Serum Total Protein 7.4 (6.3-8.2) g/dL Albumin 3.8 (3.5-5.0) g/dL - Progress Progress: improved Progress Note: 08/27/21 04:44 Medical decision making: This patient states he no longer has chest pain. He does not want to stay for the 3-hour EKG and troponin level. Patient is aware that he has a cardiac history and he is presenting complaint included chest pain. I recommend that he stays for the 3-hour EKG and troponin level. He understands that he could have an evolving myocardial infarction which could lead to . He understands that and because he wants to get his home so she can sleep in order to go to work this early afternoon then he needs to leave now. He will sign AGAINST MEDICAL ADVICE form. Counseled pt/family regarding: lab results, diagnosis, need for follow-up - Departure Departure Disposition: AMA Clinical Impression: Chest pain, Back pain, Neck pain Condition: Stable Critical Care Time: No Referrals: HOSPITAL,'S [Primary Care Provider] - Follow up/PCP as directed Additional Instructions: Take your medication as prescribed. Follow-up with your prescribing doctor on Sunday for further evaluation management. Return to emergency department if symptoms recur.
[2021-08-27 03:08] LABS: Absolute Neutrophil Ct (ANC) 8.08 x10^3/uL (1.4-6.9); Basophil (Absolute #) 0.04 x10^3/uL (0-0.4); Hematocrit 39.1 % (42-50); Hemoglobin 12.6 g/dL (12.5-18.0); Lymphocyte (Absolute #) 1.55 x10^3/uL (1.0-4.6); Lymphocytes % 14.9 % (24.0-44.0); Mean Cell Volume 95.8 fL (78-100); Mean Corpuscular Hemoglobin 30.9 pg (26-32); Mean Corpuscular Hgb Concent. 32.2 g/dL (32-36); Monocyte (Absolute #) 0.57 x10^3/uL (0.0-1.3); Monocytes % 5.5 % (0.0-12.0); Neutrophil % 77.8 % (36.0-66.0); Platelet Count 183 x10^3/uL (150-450); Red Blood Count 4.08 x10^6/uL (4.1-5.6); Red Cell Distribution Width 15.2 % (11.5-14.0); White Blood Count 10.4 x10^3/uL (4.0-10.5)
[2021-08-27 03:18] LABS: ALBUMIN 3.8 g/dL (3.5-5.0); ALKALINE PHOSPHATASE 98 U/L (38-126); ANION GAP 10.4 MEQ/L (5-15); BLOOD UREA NITROGEN 11 mg/dL (9-20); CHLORIDE 103 mmol/L (98-107); Calcium 8.9 mg/dL (8.4-10.2); Carbon Dioxide 27 mmol/L (22-30); Creatinine 1 1.21 mg/dL (0.66-1.25); EST GLOMERULAR FILTRATION RATE > 60.0 ML/MIN; Glucose 92 mg/dL (74-106); Potassium 3.9 mmol/L (3.5-5.1); SGOT/AST 18 U/L (17-59); SGPT/ALT 12 U/L (0-50); SODIUM 137 mmol/L (137-145); Total Protein 7.4 g/dL (6.3-8.2)
[2021-08-27] MEDS ORDERED: Zofran 4 MG/2 ML VIAL IV ONE (03:31)
[2021-08-27] MEDS ORDERED: Hydromorphone 1 mg/ml Injection IV ONE (03:31)
[2021-08-27] MEDS ORDERED: Zofran 4 MG/2 ML VIAL ONE (03:38)
[2021-08-27] MEDS ORDERED: Hydromorphone 1 mg/ml Injection ONE (03:39)
[2021-08-27 04:16] VITALS: BP 178/95; PULSE 68
[2021-08-27 04:46] VITALS: O2SAT 98
== END 2021-08-27 04:53 | disposition left against medical advice (07) ==
LOC: ED 02:04
DX: R07.9 Chest pain, unspecified (principal); M54.2 Cervicalgia; M54.9 Dorsalgia, unspecified; E78.5 Hyperlipidemia, unspecified; I10 Essential (primary) hypertension; J43.9 Emphysema, unspecified; Z72.0 Tobacco use; Z79.02 Long term (current) use of antithrombotics/antiplatelets; Z79.899 Other long term (current) drug therapy
CPT/HCPCS: 36000; 36415; 80053; 84484; 85025; 93005; 93041; 94760; 96374; 96375; 99284; J1170; J2405

== ENCOUNTER 2021-09-07 00:35 | Emergency (ER) | payer OTHER ==
[2021-09-07 01:12] VITALS: BP 163/87; PULSE 88; O2SAT 99
[2021-09-07] MEDS ORDERED: Cyclobenzaprine 10 MG ONE (01:31)
[2021-09-07] MEDS: Cyclobenzaprine 10 MG PO ONE (01:32)
--- NOTE | 2021-09-07 04:44 | ERPHSYRPT ---
- History of Present Illness Time Seen by Provider: 09/07/21 01:10 Source: patient Exam Limitations: no limitations Patient Subjective Stated Complaint: pt states while sitting watching tv, he suddenly had a sudden pain in his shoulder, radiating up his neck. states it fel t like electricity shooting up his shoulder Triage Nursing Assessment: pt alert and oriented answer questions approp. pt ambulatory with steady gait noted. respirations nonlabored. skin warm and dry. tenderness noted to lt posterior shoulder. cap refill and radial pulse wnl. pt denies numbness or tingling in arm or hand. Physician History: Patient is a 55-year-old male presents to our ED for evaluation of pain to his left shoulder. Patient states pain started while he was watching TV. Pain described as a electric sensation that radiates up towards his upper trapezius. Pain reproduced with palpation to his posterior shoulder and left upper trap. Pain also reproduced with movement of his left arm. Patient has no chest pain. No nausea no vomiting. No diaphoresis. No shortness of breath. Symptoms are mild to moderate in intensity. Patient voices no other complaints or concerns at this time. Patient states he took Tylenol approximately 1 hour prior to arrival. Timing/Duration: today Severity: moderate Modifying Factors: Improves With: nothing Associated Symptoms: denies symptoms Allergies/Adverse Reactions: acetaminophen [From Vicodin] Allergy (Verified 08/27/21 02:14) Rash hydrocodone bitartrate [From Vicodin] Allergy (Verified 08/27/21 02:14) Rash Iodinated Contrast Media Allergy (Verified 08/27/21 02:14) ketorolac [From Toradol] Allergy (Verified 08/27/21 02:14) Penicillins Allergy (Verified 08/27/21 02:14) venlafaxine Allergy (Verified 08/27/21 02:14) codeine Adverse Reaction (Verified 08/27/21 02:14) codeine phosphate [From Codar D] Adverse Reaction (Verified 08/27/21 02:14) morphine Adverse Reaction (Verified 08/27/21 02:14) pseudoephedrine HCl [From Codar D] Adverse Reaction (Verified 08/27/21 02:14) Home Medications: Aspirin 81 gm Chew [Baby Aspirin 81 mg Chew] 81 mg PO DAILY 04/11/14 [History] ondansetron HCL [Zofran] 4 mg PO Q6HPRN 04/11/14 [History] Albuterol Sulfate [Proair Digihaler] 2 puff IH QID PRN PRN 09/11/20 [History] Atorvastatin Calcium 1 tab PO HS 09/11/20 [History] Budesonide/Formoterol Fumarate [Budesonide-Formoterol 160-4.5] 2 puffs IH BID 09/11/20 [History] Fluticasone Propionate [Flovent Diskus] 2 sprays IN DAILY 09/11/20 [History] PANTOPRAZOLE 40 mg Tablet [Protonix 40MG Tablet] 80 mg PO BID 09/11/20 [History] Ticagrelor [Brilinta] 90 mg PO BID 09/11/20 [History] Tiotropium [place] Inhaler [Spiriva 18 Mcg/Cap Inhaler] 2 puffs IH DAILY 09/11/20 [History] clonazePAM [Clonazepam] 2 mg PO UD PRN 09/11/20 [History] lisinopriL [Lisinopril] 2.5 mg PO DAILY PRN PRN 09/11/20 [History] Cholecalciferol (Vitamin D3) [Vitamin D3] 125 mcg PO DAILY 03/22/21 [History] Cyanocobalamin 500 Mcg [Vitamin B-12 500 MCG] 1,000 mcg PO DAILY 03/22/21 [History] Loratadine 10 mg [Claritin 10 mg] 10 mg PO DAILY 03/22/21 [History] Ranolazine 500 MG [Ranexa 500 MG] 500 mg PO BID 03/22/21 [History] Acetaminophen 500 mg [Tylenol Extra Strength 500 mg] 2,500 mg PO TID 03/30/21 [History] Nitroglycerin [Nitrolingual] 1 gm TL Q5MIN PRN MR X 3 PRN 03/30/21 [History] Hx Tetanus, Diphtheria Vaccination/Date Given: Yes (unsure) Hx Influenza Vaccination/Date Given: No Hx Pneumococcal Vaccination/Date Given: No Immunizations Up to Date: Yes Travel Risk - International Travel Have you traveled outside of the country in past 3 weeks: No - Coronavirus Screening Are you exhibiting any of the following symptoms?: No Close contact with a COVID-19 positive Pt in past 14-21 Days: No - Vaccine Status Have you recieved a Covid-19 vaccination: Yes 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 - Vaccination Dates Date of 2cond Vaccination (if applicable): Summer 2020 - Review of Systems Constitutional: No Symptoms, No Fever, No Chills Eyes: No Symptoms Ears, Nose, & Throat: No Symptoms Respiratory: No Symptoms, No Cough, No Dyspnea Cardiac: No Symptoms, No Chest Pain, No Edema, No Syncope Abdominal/Gastrointestinal: No Symptoms, No Abdominal Pain, No Nausea, No Vomiting, No Diarrhea Genitourinary Symptoms: No Symptoms, No Dysuria Musculoskeletal: No Symptoms, No Back Pain, No Neck Pain Skin: No Symptoms, No Rash Neurological: No Symptoms, No Dizziness, No Focal Weakness, No Sensory Changes Psychological: No Symptoms Endocrine: No Symptoms Hematologic/Lymphatic: No Symptoms Immunological/Allergic: No Symptoms All Other Systems: Reviewed and Negative - Past Medical History Pertinent Past Medical History: Yes Neurological History: Peripheral Neuropathy, TIA ENT History: No Pertinent History Cardiac History: Aneurysm, Coronary Artery Disease, High Cholesterol, Hypertension, Myocardial Infarction ([place]) Respiratory History: COPD, Emphysema, Pneumonia, Sleep Apnea, Other Endocrine Medical History: No Pertinent History Musculoskeletal History: No Pertinent History GI Medical History: Hernia History: Other Psycho-Social History: Anxiety Male Reproductive Disorders: No Pertinent History Other Medical History: CHRONIC BACK PAIN. KIDNEY STONES - Past Surgical History Past Surgical History: Yes Neuro Surgical History: No Pertinent History Cardiac: Cardiac Catheterization, Cardiac Stent Respiratory: Other Gastrointestinal: No Pertinent History Genitourinary: No Pertinent History Musculoskeletal: Orthopedic Surgery Male Surgical History: No Pertinent History Other Surgical History: R lung cut a 1/4 inch off the top. 1988, back surgery , inspire placement, rt leg fx - Social History Smoking Status: Current every day smoker How long have you smoked: 47 years Exposure to second hand smoke: No Drug Use: none Patient Lives Alone: No - Nursing Vital Signs Nursing Vital Signs: Initial Vital Signs Temperature 98.3 F 09/07/21 01:00 Pulse Rate 88 09/07/21 01:00 Respiratory Rate 18 09/07/21 01:00 Blood Pressure 163/87 09/07/21 01:00 O2 Sat by Pulse Oximetry 99 09/07/21 01:00 Pain Scale Pain Intensity 10 - Physical Exam General Appearance: no apparent distress, alert Eye Exam: PERRL/EOMI, eyes nml inspection Ears, Nose, Throat Exam: normal ENT inspection, TMs normal, pharynx normal, moist mucous membranes Neck Exam: normal inspection, non-tender, supple, full range of motion Respiratory Exam: normal breath sounds, lungs clear, airway intact, No respiratory distress Cardiovascular Exam: regular rate/rhythm, normal heart sounds, normal peripheral pulses Gastrointestinal/Abdomen Exam: soft, normal bowel sounds, No tenderness, No mass Back Exam: normal inspection, normal range of motion, No CVA tenderness, No vertebral tenderness Extremity Exam: normal inspection, normal range of motion, pelvis stable Neurologic Exam: alert, oriented x 3, cooperative, normal mood/affect, nml cerebellar function, nml station & gait, sensation nml, No motor deficits Skin Exam: normal color, warm, dry, No rash Lymphatic Exam: No adenopathy SpO2 Interpretation: normal SpO2: 99 O2 Delivery: Room Air - Course Nursing assessment & vital signs reviewed: Yes - CT Exams Cervical Spine CT Interpretation: Tele-radiologist Report (No acute fracture or malalignment. No significant disc protrusion. No severe spinal canal stenosis. No significant neural foraminal narrowing. Biapical pleural-parenchymal scarring and emphysema. Atherosclerotic vascular disease. No fracture or malalignment) Ordered Tests: Active Orders 24 hr Category Date Time Status EKG-ER Only STAT Care 09/07/21 01:26 Active CERVICAL SPINE WO CONTRAST [CT] Stat Exams 09/07/21 01:26 Taken Medication Summary Discontinued Medications Generic Name Dose Route Start Last Admin Trade Name Freq PRN Reason Stop Dose Admin Cyclobenzaprine HCl 10 mg 09/07/21 01:28 09/07/21 01:32 Cyclobenzaprine Hcl 10 Mg Tablet PO 09/07/21 01:29 Not Given STAT ONE Cyclobenzaprine HCl Confirm 09/07/21 01:31 Cyclobenzaprine Hcl 10 Mg Tablet Administered 09/07/21 01:32 Dose 10 mg .ROUTE .STK-MED ONE - Progress Progress: unchanged, improved Progress Note: Patient took Tylenol prior to arrival. Muscle relaxer was ordered however patient declined a muscle relaxer stating this does nothing for me. Patient was placed in a left upper extremity sling for comfort. A cold pack was provided. Patient absconded our ED before CT scan report resulted. CT cervical spine shows no acute fracture or malalignment. Portions of this note were created with voice recognition technology. There may be grammatical, spelling, punctuation or sound alike errors 09/07/21 04:49 Counseled pt/family regarding: diagnosis, need for follow-up, rad results - Departure Departure Disposition: AMA Clinical Impression: Left shoulder strain, Back pain Condition: Stable Critical Care Time: No Referrals: [facility]OSP[facility],'S [Primary Care Provider] - Follow up/PCP as directed Additional Instructions: Discharge/Care Plan DONTE ROBLESNIDIA TRINH was seen on 09/07/21 in the Emergency Room. The patient was counseled regarding Diagnosis,Lab results, Imaging studies, need for follow up and when to return to the Emergency Room. Prescriptions given: Discharge Note I have spoken with the patient and/or caregivers. I have explained the patient's condition, diagnosis and treatment plan based on the information available to me at this time. I have answered the patient's and/or caregiver's questions and addressed any concerns. The patient and/or caregivers have as good understanding of the patient's diagnosis, condition and treatment plan as can be expected at this point. The vital signs have been stable. The patient's condition is stable and appropriate for discharge from the emergency department. The patient will pursue further outpatient evaluation with the primary care physician or other designated or consulting physician as outlined in the discharge instructions. The patient and/or caregivers are agreeable to this plan of care and follow-up instructions have been explained in detail. The patient and/or caregivers have received these instruction. The patient/and or caregivers are aware that any significant change in condition or worsening of symptoms should prompt an immediate return to this or the closest emergency department or call 911.
--- NOTE | 2021-09-07 08:54 | XRAY ---
Indication: Left neck pain radiating shoulder. Fracture. Multiple contiguous axial images obtained through the cervical spine. Sagittal and coronal reformatted images obtained. Comparison: None Axial images negative for acute fracture, suspicious bony lesions, or spinal canal stenosis. Minimal C3-C4 degenerative endplate spurring. Facets are symmetric. Sagittal and coronal reformatted images. Vertebral body heights/disc spaces maintained. No acute compression fracture, subluxation, or jumped facet. Normal-appearing craniocervical junction. Visualized noncontrasted soft tissues demonstrates moderate bilateral carotid calcifications and biapical pleural parenchymal fibrosis/scarring. Base of brain unremarkable. Impression: 1. C3-C4 degenerative changes, bilateral carotid calcifications, and biapical pleural parenchymal fibrosis/scarring. 2. Remaining CT cervical spine is negative. Comment: Preliminary interpretation made by [facility]. No critical discrepancy.
== END 2021-09-07 04:15 | disposition left against medical advice (07) ==
LOC: ED 00:35
DX: S46.912A Strain of unspecified muscle, fascia and tendon at shoulder and upper arm level, left arm, initial encounter (principal); M79.18 Myalgia, other site; E78.5 Hyperlipidemia, unspecified; I10 Essential (primary) hypertension; J43.9 Emphysema, unspecified; Z72.0 Tobacco use; Z79.899 Other long term (current) drug therapy
CPT/HCPCS: 72125; 99283; A9270-GY

== ENCOUNTER 2021-09-25 00:37 | Emergency (ER) | payer OTHER ==
[2021-09-25] MEDS ORDERED: Ketamine HCl 50 MG/ML IV ONE (01:36)
[2021-09-25] MEDS ORDERED: DELTASONE 20 MG PO ONE (01:38)
[2021-09-25] MEDS ORDERED: Zanaflex 4 MG PO ONE (01:40)
[2021-09-25] MEDS ORDERED: Sodium Chloride 0.9% 1000 ML 1,000 ML IV STA (01:40)
--- NOTE | 2021-09-25 01:41 | ERPHSYRPT ---
- History of Present Illness Time Seen by Provider: 09/25/21 01:41 Source: patient, family Exam Limitations: no limitations Physician History: Pt has long hx of neck and back DDD problems with reported radicular symptoms. He does not have bowel or bladder symptoms , no recent trauma or fall. He has not had spinal manipulation, stim implant, or epidurals. No CHest or ABd pain and no symptoms like when he had his MIs. His symptoms are precipitated by turning his head/neck motions only. Sensation is intact, with slight decrease in left hand rn advice strength noted. Normal and symmet reflexes. Abd nontender without mass or peritoneal signs. Timing/Duration: day(s), gradual onset, worse Method of Injury: unknown Quality: radiating, sharp Back Pain Location: C-spine, lumbar spine, paraspinous muscles Back Pain Radiation: lower legs, feet Severity of Pain-Max: moderate Severity of Pain-Current: moderate Modifying Factors: Improves With: immobilization, movement Associated Symptoms: numbness in legs/feet, muscle spasms, other (handas arms paresthesias), No urinary incontinence, No constipation, No nausea, No vomiting, No problems urinating Previous symptoms: same symptoms as today, recently seen, recently treated Allergies/Adverse Reactions: acetaminophen [From Vicodin] Allergy (Verified 08/27/21 02:14) Rash hydrocodone bitartrate [From Vicodin] Allergy (Verified 08/27/21 02:14) Rash Iodinated Contrast Media Allergy (Verified 08/27/21 02:14) ketorolac [From Toradol] Allergy (Verified 08/27/21 02:14) Penicillins Allergy (Verified 08/27/21 02:14) venlafaxine Allergy (Verified 08/27/21 02:14) codeine Adverse Reaction (Verified 08/27/21 02:14) codeine phosphate [From Codar D] Adverse Reaction (Verified 08/27/21 02:14) morphine Adverse Reaction (Verified 08/27/21 02:14) pseudoephedrine HCl [From Codar D] Adverse Reaction (Verified 08/27/21 02:14) Home Medications: Aspirin 81 gm Chew [Baby Aspirin 81 mg Chew] 81 mg PO DAILY 04/11/14 [History] ondansetron HCL [Zofran] 4 mg PO Q6HPRN 04/11/14 [History] Albuterol Sulfate [Proair Digihaler] 2 puff IH QID PRN PRN 09/11/20 [History] Atorvastatin Calcium 1 tab PO HS 09/11/20 [History] Budesonide/Formoterol Fumarate [Budesonide-Formoterol 160-4.5] 2 puffs IH BID 09/11/20 [History] Fluticasone Propionate [Flovent Diskus] 2 sprays IN DAILY 09/11/20 [History] PANTOPRAZOLE 40 mg Tablet [Protonix 40MG Tablet] 80 mg PO BID 09/11/20 [History] Ticagrelor [Brilinta] 90 mg PO BID 09/11/20 [History] Tiotropium [place] Inhaler [Spiriva 18 Mcg/Cap Inhaler] 2 puffs IH DAILY 09/11/20 [History] clonazePAM [Clonazepam] 2 mg PO UD PRN 09/11/20 [History] lisinopriL [Lisinopril] 2.5 mg PO DAILY PRN PRN 09/11/20 [History] Cholecalciferol (Vitamin D3) [Vitamin D3] 125 mcg PO DAILY 03/22/21 [History] Cyanocobalamin 500 Mcg [Vitamin B-12 500 MCG] 1,000 mcg PO DAILY 03/22/21 [History] Loratadine 10 mg [Claritin 10 mg] 10 mg PO DAILY 03/22/21 [History] Ranolazine 500 MG [Ranexa 500 MG] 500 mg PO BID 03/22/21 [History] Acetaminophen 500 mg [Tylenol Extra Strength 500 mg] 2,500 mg PO TID 03/30/21 [History] Nitroglycerin [Nitrolingual] 1 gm TL Q5MIN PRN MR X 3 PRN 03/30/21 [History] Hx Tetanus, Diphtheria Vaccination/Date Given: Yes (unsure) Hx Influenza Vaccination/Date Given: No Hx Pneumococcal Vaccination/Date Given: No Travel Risk - Vaccine Status Have you recieved a Covid-19 vaccination: Yes Lotus Notes Administrator: Moderna - Vaccination Dates Date of 2cond Vaccination (if applicable): Summer 2020 - Review of Systems Constitutional: No Fever, No Chills Eyes: No Symptoms Ears, Nose, & Throat: No Symptoms Respiratory: No Cough, No Dyspnea Cardiac: No Chest Pain, No Edema, No Syncope Abdominal/Gastrointestinal: No Abdominal Pain, No Nausea, No Vomiting, No Diarrhea Genitourinary Symptoms: No Dysuria Musculoskeletal: Back Pain, Neck Pain, No Fall Skin: No Rash Neurological: No Dizziness, No Focal Weakness, No Sensory Changes Psychological: No Symptoms Endocrine: No Symptoms Hematologic/Lymphatic: No Symptoms Immunological/Allergic: No Symptoms All Other Systems: Reviewed and Negative - Past Medical History Pertinent Past Medical History: Yes Neurological History: Peripheral Neuropathy, TIA ENT History: No Pertinent History Cardiac History: Aneurysm, Coronary Artery Disease, High Cholesterol, Hypertension, Myocardial Infarction ([place]) Respiratory History: COPD, Emphysema, Pneumonia, Sleep Apnea, Other Endocrine Medical History: No Pertinent History Musculoskeletal History: No Pertinent History GI Medical History: Hernia History: Other Psycho-Social History: Anxiety Male Reproductive Disorders: No Pertinent History Other Medical History: CHRONIC BACK PAIN. KIDNEY STONES - Past Surgical History Past Surgical History: Yes Neuro Surgical History: No Pertinent History Cardiac: Cardiac Catheterization, Cardiac Stent Respiratory: Other Gastrointestinal: No Pertinent History Genitourinary: No Pertinent History Musculoskeletal: Orthopedic Surgery Male Surgical History: No Pertinent History Other Surgical History: R lung cut a 1/4 inch off the top. 1988, back surgery , inspire placement, rt leg fx - Social History Smoking Status: Current every day smoker How long have you smoked: 47 years Exposure to second hand smoke: No Drug Use: none Patient Lives Alone: No - Nursing Vital Signs Nursing Vital Signs: Initial Vital Signs Pulse Rate 91 H 09/25/21 00:37 Respiratory Rate 16 09/25/21 00:37 Blood Pressure 158/88 09/25/21 00:37 O2 Sat by Pulse Oximetry 97 09/25/21 00:37 Pain Scale Pain Intensity [Back] 9 Pain Intensity 6 - Physical Exam General Appearance: no apparent distress, alert Eye Exam: PERRL/EOMI, eyes nml inspection Ears, Nose, Throat Exam: normal ENT inspection, pharynx normal Neck Exam: normal inspection, non-tender, supple, limited range of motion, other (pain and rad symptoms precip by head turning), No meningismus, No midline tenderness Respiratory Exam: normal breath sounds, lungs clear, No respiratory distress Cardiovascular Exam: regular rate/rhythm, normal heart sounds Gastrointestinal Exam: soft, No tenderness, No mass Rectal Exam: deferred Back Exam: normal inspection, decreased range of motion, muscle spasm, No vertebral tenderness Extremity Exam: normal inspection, normal range of motion, No calf tenderness, No pedal edema Peripheral Pulses: carotid (R): 2+, carotid (L): 2+, femoral (R): 2+, femoral (L): 2+, dorsalis-pedis (R): 2+, dorsalis-pedis (L): 2+ Neurologic Exam: alert, oriented x 3, cooperative, wireless field technician II-XII nml as tested, normal mood/affect, nml station & gait, sensation nml, No motor deficits Skin Exam: normal color, warm, dry, No rash SpO2 Interpretation: normal SpO2: 98 O2 Delivery: Room Air Ordered Tests: Active Orders 24 hr Category Date Time Status IV Insertion STAT Care 09/25/21 01:40 Active Medication Summary Discontinued Medications Generic Name Dose Route Start Last Admin Trade Name Freq PRN Reason Stop Dose Admin Hydromorphone HCl 1 mg 09/25/21 02:57 09/25/21 03:05 Hydromorphone 1 Mg/1ml Inj 1 Mg/Ml Syringe IV 09/25/21 02:58 1 mg STAT ONE Administration Hydromorphone HCl Confirm 09/25/21 03:05 Hydromorphone 1 Mg/1ml Inj 1 Mg/Ml Syringe Administered 09/25/21 03:06 Dose 1 mg .ROUTE .STK-MED ONE Hydromorphone HCl 1 mg 09/25/21 03:16 09/25/21 03:22 Hydromorphone 1 Mg/1ml Inj 1 Mg/Ml Syringe IV 09/25/21 03:17 1 mg STAT ONE Administration Hydromorphone HCl Confirm 09/25/21 03:20 Hydromorphone 1 Mg/1ml Inj 1 Mg/Ml Syringe Administered 09/25/21 03:21 Dose 1 mg .ROUTE .STK-MED ONE Sodium Chloride 1,000 mls @ 999 mls/hr 09/25/21 01:40 09/25/21 02:06 Sodium Chloride 0.9% 1000 Ml IV 09/25/21 02:40 999 mls/hr .Q1H1M STA Administration Sodium Chloride Confirm 09/25/21 02:01 Sodium Chloride 0.9% 1000 Ml Administered 09/25/21 02:02 Dose 1,000 mls @ ud .ROUTE .STK-MED ONE Ketamine HCl 10 mg 09/25/21 01:36 09/25/21 02:06 Ketamine Hcl 50 Mg/Ml IV 09/25/21 01:37 10 mg STAT ONE Administration Prednisone 40 mg 09/25/21 01:38 09/25/21 02:06 Prednisone 20 Mg Tablet PO 09/25/21 01:39 40 mg STAT ONE Administration Prednisone Confirm 09/25/21 02:00 Prednisone 20 Mg Tablet Administered 09/25/21 02:01 Dose 40 mg .ROUTE .STK-MED ONE Tizanidine HCl 4 mg 09/25/21 01:40 09/25/21 02:06 Tizanidine Hcl 4 Mg Tablet PO 09/25/21 01:41 4 mg STAT ONE Administration - Progress Progress: improved, re-examined Progress Note: 09/25/21 02:59 ketamine did help for a short time. However, I think in his case, and hx of rxns, it is best not to repeat the dose this time. But can consider in future as he gets more used to this modality. Counseled pt/family regarding: diagnosis, need for follow-up - Departure Clinical Impression: Back pain, Exacerbation of chronic back pain, Neck pain Condition: Good Critical Care Time: No Referrals: HOSPITAL,'S [Primary Care Provider] - Follow up/PCP as directed Instructions: Herniated Disc (DC), Degenerative Disc Disease Additional Instructions: follow-up blood pressure with your Drs. Follow-up with neurosurgeon referrals and pain referrals as planned. Return meantime if any progression or other concerns. The dose of ketamine was 10 mg , and next time may consider gradual increase such as to 15 mg , and finally to 20 mg if tolerated. Prescriptions: Tizanidine HCl 4 mg [Zanaflex 4 MG] 4 mg PO Q6HPRN PRN #20 tablet PRN Reason: Pain Prednisone 10 mg [Deltasone 10 mg] 30 mg PO DAILY #14 tablet
[2021-09-25] MEDS ORDERED: DELTASONE 20 MG ONE (02:00)
[2021-09-25] MEDS ORDERED: Sodium Chloride 0.9% 1000 ML 1,000 ML ONE (02:01)
[2021-09-25] MEDS ORDERED: Hydromorphone 1 mg/ml Injection IV ONE ×3 (02:57→03:43)
[2021-09-25] MEDS ORDERED: Hydromorphone 1 mg/ml Injection ONE ×3 (03:05→03:50)
[2021-09-25 04:03] VITALS: BP 163/99; PULSE 66; O2SAT 97
== END 2021-09-25 04:10 | disposition home or self-care (01) ==
LOC: ED 00:37
DX: G89.29 Other chronic pain (principal); M54.9 Dorsalgia, unspecified; M54.2 Cervicalgia; R20.2 Paresthesia of skin; E78.5 Hyperlipidemia, unspecified; I10 Essential (primary) hypertension; J43.9 Emphysema, unspecified; Z72.0 Tobacco use; Z79.02 Long term (current) use of antithrombotics/antiplatelets; Z79.899 Other long term (current) drug therapy; Z79.52 Long term (current) use of systemic steroids
CPT/HCPCS: 36000; 96360; 96374; 96375; 96376; 99284; J1170; A9270-GY

== ENCOUNTER 2021-10-02 22:00 | Emergency (ER) | payer OTHER ==
[2021-10-02] MEDS ORDERED: Sodium Chloride 0.9% 1000 ML 1,000 ML IV STA (22:13)
[2021-10-02] MEDS ORDERED: BABY ASPIRIN 81 MG CHEW PO ONE (22:13)
[2021-10-02] MEDS ORDERED: MORPHINE SULFATE 4 MG INJ IV ONE (22:13)
[2021-10-02 22:17] VITALS: O2SAT 97
[2021-10-02] MEDS ORDERED: PERCOCET TABLET 5/325MG PO ONE (22:22)
[2021-10-02 22:25] LABS: Absolute Neutrophil Ct (ANC) 3.15 x10^3/uL (1.4-6.9); Basophil (Absolute #) 0.02 x10^3/uL (0-0.4); Eosinophil % 1.1 % (0.00-5.0); Eosinophil (Absolute #) 0.06 x10^3/uL (0-0.5); Hematocrit 37.6 % (42-50); Lymphocyte (Absolute #) 1.76 x10^3/uL (1.0-4.6); Lymphocytes % 32.8 % (24.0-44.0); Mean Cell Volume 97.4 fL (78-100); Mean Corpuscular Hemoglobin 31.1 pg (26-32); Mean Corpuscular Hgb Concent. 31.9 g/dL (32-36); Mean Platelet Volume 9.4 fL (7.5-11.0); Monocyte (Absolute #) 0.35 x10^3/uL (0.0-1.3); Monocytes % 6.5 % (0.0-12.0); Neutrophil % 58.8 % (36.0-66.0); Platelet Count 172 x10^3/uL (150-450); Red Blood Count 3.86 x10^6/uL (4.1-5.6); Red Cell Distribution Width 14.6 % (11.5-14.0); White Blood Count 5.4 x10^3/uL (4.0-10.5)
--- NOTE | 2021-10-02 22:42 | ERPHSYRPT ---
- History of Present Illness Time Seen by Provider: 10/02/21 22:01 Historian: patient Exam Limitations: no limitations Patient Subjective Stated Complaint: pt states "I started having chest pain a little bit after 9 pm. I checked my blood pressure and it was high. I don't know if its my back that radiates to my chest cause I have chronic pain in my back." Triage Nursing Assessment: pt ambulates to room by self, pt alert and oriented x3, pt c/o chest pain that started around 2100 while patient was watching tv, pt has hx of 3 MIs, pt has seen pcp for his chronic back pain and chest pain and was sent to do a stress test which was normal Physician History: Patient started having midsternal chest pain earlier tonight around 9 PM. States it came on at rest. No other falls or trauma. Patient states he has been dealing with chronic back pain for the past 3 weeks. States he has had a normal CT scan of his chest, normal stress test. I was able to review his last stress test in the computer. It was normal. Done approximately [address] scan was actually a CT of his shoulder. Patient denies any associated symptoms. Chest pain is somewhat reproducible per him. States he is already taken a full dose aspirin today. Timing/Duration: today Activities at Onset: none Quality: sharpness Location: central Chest Pain Radiation: no radiation Severity of Pain-Max: mild Severity of Pain-Current: mild Modifying Factors: Improves With: aspirin Associated Symptoms: denies symptoms Prior Chest Pain/Cardiac Workup: heart attack, stress test, recently seen/manjinder ated Aspirin Treatment Today: provided at home Allergies/Adverse Reactions: acetaminophen [From Vicodin] Allergy (Verified 10/02/21 22:02) Rash hydrocodone bitartrate [From Vicodin] Allergy (Verified 10/02/21 22:02) Rash Iodinated Contrast Media Allergy (Verified 10/02/21 22:02) ketorolac [From Toradol] Allergy (Verified 10/02/21 22:02) Penicillins Allergy (Verified 10/02/21 22:02) venlafaxine Allergy (Verified 10/02/21 22:02) codeine Adverse Reaction (Verified 10/02/21 22:02) codeine phosphate [From Codar D] Adverse Reaction (Verified 10/02/21 22:02) morphine Adverse Reaction (Verified 10/02/21 22:02) pseudoephedrine HCl [From [place]] Adverse Reaction (Verified 10/02/21 22:02) Home Medications: Aspirin 81 gm Chew [Baby Aspirin 81 mg Chew] 81 mg PO DAILY 04/11/14 [History] ondansetron HCL [Zofran] 4 mg PO Q6HPRN 04/11/14 [History] Albuterol Sulfate [Proair Digihaler] 2 puff IH QID PRN PRN 09/11/20 [History] Atorvastatin Calcium 1 tab PO HS 09/11/20 [History] Budesonide/Formoterol Fumarate [Budesonide-Formoterol 160-4.5] 2 puffs IH BID 09/11/20 [History] Fluticasone Propionate [Flovent Diskus] 2 sprays IN DAILY 09/11/20 [History] PANTOPRAZOLE 40 mg Tablet [Protonix 40MG Tablet] 80 mg PO BID 09/11/20 [History] Ticagrelor [Brilinta] 90 mg PO BID 09/11/20 [History] Tiotropium [place] Inhaler [Spiriva 18 Mcg/Cap Inhaler] 2 puffs IH DAILY 09/11/20 [History] clonazePAM [Clonazepam] 2 mg PO UD PRN 09/11/20 [History] lisinopriL [Lisinopril] 2.5 mg PO DAILY PRN PRN 09/11/20 [History] Cholecalciferol (Vitamin D3) [Vitamin D3] 125 mcg PO DAILY 03/22/21 [History] Cyanocobalamin 500 Mcg [Vitamin B-12 500 MCG] 1,000 mcg PO DAILY 03/22/21 [History] Loratadine 10 mg [Claritin 10 mg] 10 mg PO DAILY 03/22/21 [History] Ranolazine 500 MG [Ranexa 500 MG] 500 mg PO BID 03/22/21 [History] Acetaminophen 500 mg [Tylenol Extra Strength 500 mg] 2,500 mg PO TID 03/30/21 [History] Nitroglycerin [Nitrolingual] 1 gm TL Q5MIN PRN MR X 3 PRN 03/30/21 [History] Hx Tetanus, Diphtheria Vaccination/Date Given: Yes (unsure) Hx Influenza Vaccination/Date Given: No Hx Pneumococcal Vaccination/Date Given: No Travel Risk - International Travel Have you traveled outside of the country in past 3 weeks: No - Coronavirus Screening Are you exhibiting any of the following symptoms?: No Close contact with a COVID-19 positive Pt in past 14-21 Days: No - Vaccine Status Have you recieved a Covid-19 vaccination: Yes Stereotype Finisher: Moderna - Vaccination Dates Date of 2cond Vaccination (if applicable): Summer 2020 - Review of Systems Constitutional: No Fever, No Chills Eyes: No Symptoms Ears, Nose, & Throat: No Symptoms Respiratory: No Cough, No Dyspnea Cardiac: Chest Pain, No Edema, No Syncope Abdominal/Gastrointestinal: No Abdominal Pain, No Nausea, No Vomiting, No Diarrhea Genitourinary Symptoms: No Dysuria Musculoskeletal: No Back Pain, No Neck Pain Skin: No Rash Neurological: No Dizziness, No Focal Weakness, No Sensory Changes Psychological: No Symptoms Endocrine: No Symptoms All Other Systems: Reviewed and Negative - Past Medical History Pertinent Past Medical History: Yes Neurological History: Peripheral Neuropathy, TIA ENT History: No Pertinent History Cardiac History: Aneurysm, Coronary Artery Disease, High Cholesterol, Hypertension, Myocardial Infarction ([place]) Respiratory History: COPD, Emphysema, Pneumonia, Sleep Apnea, Other Endocrine Medical History: Hypothyroidism Musculoskeletal History: No Pertinent History GI Medical History: Hernia History: Other Psycho-Social History: Anxiety Male Reproductive Disorders: No Pertinent History Other Medical History: CHRONIC BACK PAIN. KIDNEY STONES - Past Surgical History Past Surgical History: Yes Neuro Surgical History: No Pertinent History Cardiac: Cardiac Catheterization, Cardiac Stent Respiratory: Other Gastrointestinal: No Pertinent History Genitourinary: No Pertinent History Musculoskeletal: Orthopedic Surgery Male Surgical History: No Pertinent History Other Surgical History: R lung cut a 1/4 inch off the top. 1988, back surgery , inspire placement, rt leg fx - Social History Smoking Status: Current every day smoker How long have you smoked: 47 years Exposure to second hand smoke: No Drug Use: none Patient Lives Alone: No - Nursing Vital Signs Nursing Vital Signs: Initial Vital Signs Temperature 98.1 F 10/02/21 22:16 Pulse Rate 76 10/02/21 22:16 Respiratory Rate 19 10/02/21 22:16 Blood Pressure 176/96 10/02/21 22:16 O2 Sat by Pulse Oximetry 97 10/02/21 22:16 Pain Scale Pain Intensity 8 - Physical Exam General Appearance: no apparent distress, alert Eye Exam: PERRL/EOMI, eyes nml inspection Ears, Nose, Throat Exam: normal ENT inspection, moist mucous membranes Neck Exam: normal inspection, non-tender, supple, full range of motion Respiratory Exam: normal breath sounds, lungs clear, No respiratory distress Cardiovascular Exam: regular rate/rhythm, normal heart sounds, other (Patient has midsternal reproducible chest pain. He states that this is the pain he was feeling at rest earlier tonight.) Gastrointestinal/Abdomen Exam: soft, No tenderness, No mass Back Exam: normal inspection, No CVA tenderness, No vertebral tenderness Extremity Exam: normal inspection, normal range of motion Neurologic Exam: alert, oriented x 3, cooperative, normal mood/affect, sensation nml, No motor deficits Skin Exam: normal color, warm, dry SpO2: 97 - Course Nursing assessment & vital signs reviewed: Yes EKG Interpreted by Me: Sinus Rhythm Ordered Tests: Active Orders 24 hr Category Date Time Status EKG-ER Only STAT Care 10/02/21 22:13 Active IV Insertion STAT Care 10/02/21 22:13 Active CHEST 1 VIEW (PORTABLE) Stat Exams 10/02/21 22:13 Taken CBC W DIFF Stat Lab 10/02/21 22:20 Completed CMP Stat Lab 10/02/21 22:20 Completed LIPASE Stat Lab 10/02/21 22:20 Completed NT PRO BNP Stat Lab 10/02/21 22:20 Completed TROPONIN Q4H Lab 10/02/21 22:20 Completed TROPONIN Q4H Lab 10/03/21 00:08 Completed TROPONIN Q4H Lab 10/03/21 06:15 Ordered Medication Summary Discontinued Medications Generic Name Dose Route Start Last Admin Trade Name Freq PRN Reason Stop Dose Admin Aspirin 324 mg 10/02/21 22:13 10/02/21 22:53 Aspirin 81 Mg Tab.Chew PO 10/02/21 22:14 Not Given STAT ONE Sodium Chloride 1,000 mls @ 999 mls/hr 10/02/21 22:13 10/02/21 22:46 Sodium Chloride 0.9% 1000 Ml IV 10/02/21 23:13 Not Given .Q1H1M STA Morphine Sulfate 4 mg 10/02/21 22:13 10/02/21 22:54 Morphine Sulfate 4 Mg/Ml Injection IV 10/02/21 22:14 Not Given STAT ONE Oxycodone/Acetaminophen 1 tab 10/02/21 22:22 10/02/21 22:56 Oxycodone Hcl/Apap 5 Mg/325 Mg Tablet PO 10/02/21 22:23 1 tab STAT ONE Administration Oxycodone/Acetaminophen Confirm 10/02/21 22:56 Oxycodone Hcl/Apap 5 Mg/325 Mg Tablet Administered 10/02/21 22:57 Dose 1 tab .ROUTE .STK-MED ONE Lab/Rad Data: Laboratory Result Diagrams 10/02/21 22:20 10/02/21 22:20 Laboratory Results 10/03/21 10/02/21 10/02/21 Range/Units 00:08 22:20 22:20 WBC (4.0-10.5) x10^3/uL RBC (4.1-5.6) x10^6/uL Hgb (12.5-18.0) g/dL Hct (42-50) % MCV (78-100) fL MCH (26-32) pg MCHC (32-36) g/dL RDW (11.5-14.0) % Plt Count (150-450) x10^3/uL MPV (7.5-11.0) fL Gran % (36.0-66.0) % Immature Gran % (Auto) (0.00-0.4) % Nucleat RBC Rel Count (0.00-0.1) % Eos # (Auto) (0-0.5) x10^3/uL Immature Gran # (Auto) (0.00-0.03) x10^3u/L Absolute Lymphs (auto) (1.0-4.6) x10^3/uL Absolute Monos (auto) (0.0-1.3) x10^3/uL Absolute Nucleated RBC (0.00-0.01) x10^3u/L Lymphocytes % (24.0-44.0) % Monocytes % (0.0-12.0) % Eosinophils % (0.00-5.0) % Basophils % (0.0-0.4) % Absolute Granulocytes (1.4-6.9) x10^3/uL Basophils # (0-0.4) x10^3/uL Sodium 142 (137-145) mmol/L Potassium 4.1 (3.5-5.1) mmol/L Chloride 107 (98-107) mmol/L Carbon Dioxide 28 (22-30) mmol/L Anion Gap 11.3 (5-15) MEQ/L BUN 18 (9-20) mg/dL Creatinine 1.29 H (0.66-1.25) mg/dL Estimated GFR > 60.0 ML/MIN Glucose 102 (74-106) mg/dL Calcium 9.1 (8.4-10.2) mg/dL Total Bilirubin 0.40 (0.2-1.3) mg/dL AST 16 L (17-59) U/L ALT 11 (0-50) U/L Alkaline Phosphatase 83 (38-126) U/L Troponin I < 0.012 < 0.012 (0.000-0.034) ng/mL NT-Pro-B Natriuret Pep 430 (0-900) pg/mL Serum Total Protein 6.9 (6.3-8.2) g/dL Albumin 3.9 (3.5-5.0) g/dL Lipase 90 (23-300) U/L 10/02/21 Range/Units 22:20 WBC 5.4 (4.0-10.5) x10^3/uL RBC 3.86 L (4.1-5.6) x10^6/uL Hgb 12.0 L (12.5-18.0) g/dL Hct 37.6 L (42-50) % MCV 97.4 (78-100) fL MCH 31.1 (26-32) pg MCHC 31.9 L (32-36) g/dL RDW 14.6 H (11.5-14.0) % Plt Count 172 (150-450) x10^3/uL MPV 9.4 (7.5-11.0) fL Gran % 58.8 (36.0-66.0) % Immature Gran % (Auto) 0.4 (0.00-0.4) % Nucleat RBC Rel Count 0.0 (0.00-0.1) % Eos # (Auto) 0.06 (0-0.5) x10^3/uL Immature Gran # (Auto) 0.02 (0.00-0.03) x10^3u/L Absolute Lymphs (auto) 1.76 (1.0-4.6) x10^3/uL Absolute Monos (auto) 0.35 (0.0-1.3) x10^3/uL Absolute Nucleated RBC 0.00 (0.00-0.01) x10^3u/L Lymphocytes % 32.8 (24.0-44.0) % Monocytes % 6.5 (0.0-12.0) % Eosinophils % 1.1 (0.00-5.0) % Basophils % 0.4 (0.0-0.4) % Absolute Granulocytes 3.15 (1.4-6.9) x10^3/uL Basophils # 0.02 (0-0.4) x10^3/uL Sodium (137-145) mmol/L Potassium (3.5-5.1) mmol/L Chloride (98-107) mmol/L Carbon Dioxide (22-30) mmol/L Anion Gap (5-15) MEQ/L BUN (9-20) mg/dL Creatinine (0.66-1.25) mg/dL Estimated GFR ML/MIN Glucose (74-106) mg/dL Calcium (8.4-10.2) mg/dL Total Bilirubin (0.2-1.3) mg/dL AST (17-59) U/L ALT (0-50) U/L Alkaline Phosphatase (38-126) U/L Troponin I (0.000-0.034) ng/mL NT-Pro-B Natriuret Pep (0-900) pg/mL Serum Total Protein (6.3-8.2) g/dL Albumin (3.5-5.0) g/dL Lipase (23-300) U/L - Progress Progress: improved Air Movement: good Progress Note: 10/02/21 22:41 EKG demonstrates no obvious ST changes, my read. CT scan was of his shoulder previously. Also stress test was read as normal 10 days ago. We will obtain at least 2 troponins tonight. We will consider CT angiography based on symptom improvement and review of old labs. The chest pain certainly does not sound li ke a pulmonary embolism. This is given that it is reproducible. We will obtain troponins, basic labs, chest x-ray. 10/03/21 00:40 Patient had 2 negative troponins here tonight. Basic labs unremarkable, chest x-ray shows no widening of the mediastinal, signs of aortic dissection. Chest pain mostly resolved with an oral oxycodone here. Given that it was reproducible, associated with his back pain, 2 negative troponins, I do feel that this is less likely to be cardiac chest pain. Patient also had a negative stress test within the last 2 weeks. Although it certainly could still be cardiac related, no obvious intervention tonight given 2 negative troponins, no ischemic EKG changes. Patient will need close follow-up with his insole reinforcer, return here for any new or changing symptoms. I did discuss all this with the patient and his at bedside. They state their understanding. Blood Culture(s) Obtained: No Antibiotics given: No - Departure Departure Disposition: Home Clinical Impression: Atypical chest pain Condition: Stable Critical Care Time: No Referrals: HOSPITAL,'S [Primary Care Provider] - Follow up/PCP as directed Instructions: Chest Pain (DC) Additional Instructions: See your primary care doctor for close follow-up in the next 24 to 48 hours. If you have a insole reinforcer make sure you call them to let them know you are in the emergency department. You had 2 negative cardiac markers in the emergency department. However, should you have any new or different chest pain, increasing shortness of breath or back pain, report immediately back to the emergency department. Should anything else new or different, if you are welcome to call the emergency department or return here for further evaluation.
[2021-10-02 22:45] LABS: ALBUMIN 3.9 g/dL (3.5-5.0); ALKALINE PHOSPHATASE 83 U/L (38-126); ANION GAP 11.3 MEQ/L (5-15); BLOOD UREA NITROGEN 18 mg/dL (9-20); CHLORIDE 107 mmol/L (98-107); Calcium 9.1 mg/dL (8.4-10.2); Carbon Dioxide 28 mmol/L (22-30); Creatinine 1 1.29 mg/dL (0.66-1.25); EST GLOMERULAR FILTRATION RATE > 60.0 ML/MIN; Glucose 102 mg/dL (74-106); LIPASE 90 U/L (23-300); NT PRO BNP 430 pg/mL (0-900); Potassium 4.1 mmol/L (3.5-5.1); SGOT/AST 16 U/L (17-59); SGPT/ALT 11 U/L (0-50); SODIUM 142 mmol/L (137-145); Total Protein 6.9 g/dL (6.3-8.2)
[2021-10-02] MEDS ORDERED: PERCOCET TABLET 5/325MG ONE (22:56)
[2021-10-02 23:07] VITALS: BP 174/99; PULSE 72
--- NOTE | 2021-10-03 20:05 | XRAY ---
Exam: AP upright portable chest film from 10/02/2021. Comparison: AP upright portable chest film from 04/24/2021. Indication: Chest pain. Findings: The heart size is normal. Vascular calcification is seen within the aortic knob. There appear to be some increased interstitial markings at the lung bases suggesting chronic interstitial lung disease or fibrosis. This is unchanged from 04/24/2021. Surgical suture material is seen traversing the right lung apex representing no change. Correlate with surgical history. A generator with a lead extending superiorly toward the right side of the neck is again seen. This may relate to a right-sided vagus nerve stimulator. Correlate with surgical history. Minimal left apical pleural thickening is seen. The remainder of the lung dahl appears clear. No pneumothorax or pleural effusion is seen. There is minor deformity of the lateral aspect of the right mid rib cage representing no change which may be due to old trauma or surgery on this side. This is stable. Mild lower thoracic spondylosis is seen. Impression: 1. There are mild increased interstitial markings at both lung bases representing no significant change from 04/24/2021. This likely reflects chronic interstitial lung disease/fibrosis. 2. No acute cardiopulmonary disease is noted. Specifically, no new air space infiltrates or pneumothorax is seen. 3. Other incidental stable findings, as discussed above.
== END 2021-10-03 00:51 | disposition home or self-care (01) ==
LOC: ED 22:00
DX: R07.89 Other chest pain (principal); E78.5 Hyperlipidemia, unspecified; I10 Essential (primary) hypertension; J44.9 Chronic obstructive pulmonary disease, unspecified; Z72.0 Tobacco use; Z79.02 Long term (current) use of antithrombotics/antiplatelets
CPT/HCPCS: 36000; 36415; 71045; 80053; 83690; 83880; 84484; 85025; 93005; 99284; A9270-GY

== ENCOUNTER 2021-10-07 18:53 | Emergency (ER) | payer OTHER ==
--- NOTE | 2021-10-07 18:55 | ERPHSYRPT ---
- History of Present Illness Time Seen by Provider: 10/07/21 18:55 Source: patient Exam Limitations: no limitations Physician History: This is 56-year-old white male who is often in this emergency department for chronic back pain issues. He no longer sees a pain specialist. Patient's primary local physician is Dr. Brian Zimmer. He is scheduled to see a neurosurgeon through the [facility] within the next 1 to 2 weeks. He does most of his medical evaluations at the [facility]. Patient has not had any acute trauma. Patient states that he cannot take hydrocodone or [place]. However he can take oxycodone/acetaminophen 5/325 medications as well as injectable Dil audid. He has had those in the past without any problems. Patient has a history of coronary artery disease, elevated cholesterol, hypertension, TIAs and peripheral neuropathy. He does not have shortness of breath or chest pain. He states that this is his usual back pain but he does not have any medication to help relieve his pain. Timing/Duration: day(s), worse (In the last couple of days) Method of Injury: other (No acute fall or injury) Quality: aching Back Pain Location: T-spine (Upper), paraspinous muscles Severity of Pain-Max: moderate Severity of Pain-Current: moderate Modifying Factors: Improves With: movement Associated Symptoms: denies symptoms, No urinary incontinence, No loss of bowel control Previous symptoms: same symptoms as today, recently seen, recently treated Allergies/Adverse Reactions: acetaminophen [From Vicodin] Allergy (Verified 10/07/21 19:04) Rash hydrocodone bitartrate [From Vicodin] Allergy (Verified 10/07/21 19:04) Rash Iodinated Contrast Media Allergy (Verified 10/07/21 19:04) ketorolac [From Toradol] Allergy (Verified 10/07/21 19:04) Penicillins Allergy (Verified 10/07/21 19:04) venlafaxine Allergy (Verified 10/07/21 19:04) codeine Adverse Reaction (Verified 10/07/21 19:04) codeine phosphate [From Codar D] Adverse Reaction (Verified 10/07/21 19:04) morphine Adverse Reaction (Verified 10/07/21 19:04) pseudoephedrine HCl [From Codar D] Adverse Reaction (Verified 10/07/21 19:04) Home Medications: Aspirin 81 gm Chew [Baby Aspirin 81 mg Chew] 81 mg PO DAILY 04/11/14 [History] ondansetron HCL [Zofran] 4 mg PO Q6HPRN 04/11/14 [History] Albuterol Sulfate [Proair Digihaler] 2 puff IH QID PRN PRN 09/11/20 [History] Atorvastatin Calcium 1 tab PO HS 09/11/20 [History] Budesonide/Formoterol Fumarate [Budesonide-Formoterol 160-4.5] 2 puffs IH BID 09/11/20 [History] Fluticasone Propionate [Flovent Diskus] 2 sprays IN DAILY 09/11/20 [History] PANTOPRAZOLE 40 mg Tablet [Protonix 40MG Tablet] 80 mg PO BID 09/11/20 [History] Ticagrelor [Brilinta] 90 mg PO BID 09/11/20 [History] Tiotropium [place] Inhaler [Spiriva 18 Mcg/Cap Inhaler] 2 puffs IH DAILY 09/11/20 [History] clonazePAM [Clonazepam] 2 mg PO UD PRN 09/11/20 [History] lisinopriL [Lisinopril] 2.5 mg PO DAILY PRN PRN 09/11/20 [History] Cholecalciferol (Vitamin D3) [Vitamin D3] 125 mcg PO DAILY 03/22/21 [History] Cyanocobalamin 500 Mcg [Vitamin B-12 500 MCG] 1,000 mcg PO DAILY 03/22/21 [History] Loratadine 10 mg [Claritin 10 mg] 10 mg PO DAILY 03/22/21 [History] Ranolazine 500 MG [Ranexa 500 MG] 500 mg PO BID 03/22/21 [History] Acetaminophen 500 mg [Tylenol Extra Strength 500 mg] 2,500 mg PO TID 03/30/21 [History] Nitroglycerin [Nitrolingual] 1 gm TL Q5MIN PRN MR X 3 PRN 03/30/21 [History] Hx Tetanus, Diphtheria Vaccination/Date Given: Yes (unsure) Hx Influenza Vaccination/Date Given: No Hx Pneumococcal Vaccination/Date Given: No Travel Risk - International Travel Have you traveled outside of the country in past 3 weeks: No - Coronavirus Screening Are you exhibiting any of the following symptoms?: No Close contact with a COVID-19 positive Pt in past 14-21 Days: No - Vaccine Status Have you recieved a Covid-19 vaccination: Yes Police Booking Officer: Moderna - Vaccination Dates Date of 2cond Vaccination (if applicable): Summer 2020 - Review of Systems Constitutional: No Symptoms Eyes: No Symptoms Ears, Nose, & Throat: No Symptoms Respiratory: No Symptoms Cardiac: No Symptoms Abdominal/Gastrointestinal: No Symptoms Genitourinary Symptoms: No Symptoms Musculoskeletal: Back Pain, No Fall, No Injury Skin: No Symptoms Neurological: No Symptoms Psychological: No Symptoms Endocrine: No Symptoms Hematologic/Lymphatic: No Symptoms Immunological/Allergic: No Symptoms All Other Systems: Reviewed and Negative - Past Medical History Pertinent Past Medical History: Yes Neurological History: Peripheral Neuropathy, TIA ENT History: No Pertinent History Cardiac History: Aneurysm, Coronary Artery Disease, High Cholesterol, Hypertension, Myocardial Infarction ([place]) Respiratory History: COPD, Emphysema, Pneumonia, Sleep Apnea, Other Endocrine Medical History: Hypothyroidism Musculoskeletal History: No Pertinent History GI Medical History: Hernia History: Other Psycho-Social History: Anxiety Male Reproductive Disorders: No Pertinent History Other Medical History: CHRONIC BACK PAIN. KIDNEY STONES - Past Surgical History Past Surgical History: Yes Neuro Surgical History: No Pertinent History Cardiac: Cardiac Catheterization, Cardiac Stent Respiratory: Other Gastrointestinal: No Pertinent History Genitourinary: No Pertinent History Musculoskeletal: Orthopedic Surgery Male Surgical History: No Pertinent History Other Surgical History: R lung cut a 1/4 inch off the top. 1988, back surgery , inspire placement, rt leg fx - Social History Smoking Status: Current every day smoker How long have you smoked: 47 years Exposure to second hand smoke: No Drug Use: none Patient Lives Alone: No - Nursing Vital Signs Nursing Vital Signs: Initial Vital Signs Temperature 97.8 F 10/07/21 19:05 Pulse Rate 80 10/07/21 19:05 Respiratory Rate 22 10/07/21 19:05 Blood Pressure 170/106 10/07/21 19:05 O2 Sat by Pulse Oximetry 98 10/07/21 19:05 Pain Scale Pain Intensity [Upper Back] 10 Pain Intensity 10 - Physical Exam General Appearance: no apparent distress, alert, anxiety Eye Exam: PERRL/EOMI, eyes nml inspection Ears, Nose, Throat Exam: normal ENT inspection, moist mucous membranes Neck Exam: normal inspection, non-tender, supple, full range of motion Respiratory Exam: airway intact, No chest tenderness, No respiratory distress Gastrointestinal Exam: No tenderness Rectal Exam: not done Back Exam: normal range of motion, muscle spasm (Thoracic) Extremity Exam: normal inspection, normal range of motion, pelvis stable Neurologic Exam: alert, oriented x 3, cooperative, geometry professor II-XII nml as tested, normal mood/affect, nml cerebellar function, nml station & gait, sensation nml Skin Exam: normal color, warm, dry Lymphatic Exam: No adenopathy SpO2 Interpretation: normal O2 Delivery: Room Air - Course Nursing assessment & vital signs reviewed: Yes Ordered Tests: Medication Summary Discontinued Medications Generic Name Dose Route Start Last Admin Trade Name Freq PRN Reason Stop Dose Admin Hydromorphone HCl 1 mg 10/07/21 19:19 10/07/21 19:25 Hydromorphone 1 Mg/1ml Inj 1 Mg/Ml Syringe IM 10/07/21 19:20 1 mg STAT ONE Administration Hydromorphone HCl Confirm 10/07/21 19:24 Hydromorphone 1 Mg/1ml Inj 1 Mg/Ml Syringe Administered 10/07/21 19:25 Dose 1 mg .ROUTE .STK-MED ONE Oxycodone/Acetaminophen 2 tab 10/07/21 19:44 Oxycodone Hcl/Apap 5 Mg/325 Mg Tablet PO 10/07/21 19:45 SENT HOME W/ PATIENT STA Prochlorperazine Edisylate 5 mg 10/07/21 19:20 10/07/21 19:25 Prochlorperazine Edisylate 10 Mg/2 Ml Vial IM 10/07/21 19:21 5 mg STAT ONE Administration Prochlorperazine Edisylate Confirm 10/07/21 19:25 Prochlorperazine Edisylate 10 Mg/2 Ml Vial Administered 10/07/21 19:26 Dose 10 mg .ROUTE .STK-MED ONE - Progress Progress: improved, pain not gone completely Counseled pt/family regarding: diagnosis, need for follow-up - Departure Departure Disposition: Home Clinical Impression: Chronic high back pain Condition: Stable Critical Care Time: No Referrals: [facility]OSPITAL,'S [Primary Care Provider] - Follow up/PCP as directed Additional Instructions: Follow-up with your primary care physician and your neurosurgeon for further evaluation and management of your chronic recurring back pain.
[2021-10-07 19:16] VITALS: O2SAT 98
[2021-10-07] MEDS ORDERED: Hydromorphone 1 mg/ml Injection IM ONE (19:19)
[2021-10-07] MEDS ORDERED: Compazine 10 MG/2 ML IM ONE (19:20)
[2021-10-07] MEDS ORDERED: Hydromorphone 1 mg/ml Injection ONE (19:24)
[2021-10-07] MEDS ORDERED: Compazine 10 MG/2 ML ONE (19:25)
[2021-10-07] MEDS ORDERED: PERCOCET TABLET 5/325MG PO STA (19:44)
[2021-10-07] MEDS ORDERED: PERCOCET TABLET 5/325MG ONE (19:50)
[2021-10-07 20:01] VITALS: BP 145/100; PULSE 77
== END 2021-10-07 20:07 | disposition home or self-care (01) ==
LOC: ED 18:53
DX: G89.29 Other chronic pain (principal); M54.6 Pain in thoracic spine; E78.5 Hyperlipidemia, unspecified; I10 Essential (primary) hypertension; J43.9 Emphysema, unspecified; Z72.0 Tobacco use; Z79.02 Long term (current) use of antithrombotics/antiplatelets; Z79.899 Other long term (current) drug therapy
CPT/HCPCS: 96372; 99283; J1170; A9270-GY

== ENCOUNTER 2021-10-15 16:50 | Emergency (ER) | payer OTHER ==
[2021-10-15] MEDS ORDERED: Zofran 4 MG/2 ML VIAL IV ONE (17:18)
[2021-10-15] MEDS ORDERED: Sodium Chloride 0.9% 1000 ML 1,000 ML IV STA (17:18)
[2021-10-15] MEDS ORDERED: Hydromorphone 1 mg/ml Injection IV ONE ×2 (17:18→19:31)
--- NOTE | 2021-10-15 17:18 | ERPHSYRPT ---
- History of Present Illness Time Seen by Provider: 10/15/21 17:16 Historian: patient Exam Limitations: no limitations Patient Subjective Stated Complaint: pt here for lower abd to groin pain since last night getting worse,nauseated, no vomiting, no fever Triage Nursing Assessment: pt alert, will only sit of edge of bed do to pain, resp easy,skin w/d/p. abd soft, no edema noted, Physician History: This is a 56-year-old white male patient has history of chronic low back pain issues. He does not see a pain specialist. Patient states that this pain is different than normal low back pain that he has. He has bilateral flank pain that goes into his scrotum. Patient takes Brilinta. Patient has a history of COPD, coronary artery disease, elevated cholesterol, TIAs, and anxiety issues. Patient denies chest pain and he denies shortness of breath. Timing/Duration: yesterday Activities at Onset: none Quality: aching Abdominal Pain Onset Location: flank (Lateral) Pain Radiation: groin (Bilateral) Severity of Pain-Max: moderate Severity of Pain-Current: moderate Modifying Factors: Improves With: nothing Associated Symptoms: denies symptoms Previous symptoms: no prior history Allergies/Adverse Reactions: acetaminophen [From Vicodin] Allergy (Verified 10/15/21 17:07) Rash hydrocodone bitartrate [From Vicodin] Allergy (Verified 10/15/21 17:07) Rash Iodinated Contrast Media Allergy (Verified 10/15/21 17:07) ketorolac [From Toradol] Allergy (Verified 10/15/21 17:07) Penicillins Allergy (Verified 10/15/21 17:07) venlafaxine Allergy (Verified 10/15/21 17:07) codeine Adverse Reaction (Verified 10/15/21 17:07) codeine phosphate [From Codar D] Adverse Reaction (Verified 10/15/21 17:07) morphine Adverse Reaction (Verified 10/15/21 17:07) pseudoephedrine HCl [From Codar D] Adverse Reaction (Verified 10/15/21 17:07) Home Medications: Aspirin 81 gm Chew [Baby Aspirin 81 mg Chew] 81 mg PO DAILY 04/11/14 [History] Albuterol Sulfate [Proair Digihaler] 2 puff IH QID PRN PRN 09/11/20 [History] Atorvastatin Calcium 1 tab PO HS 09/11/20 [History] Budesonide/Formoterol Fumarate [Budesonide-Formoterol 160-4.5] 2 puffs IH BID 09/11/20 [History] Fluticasone Propionate [Flovent Diskus] 2 sprays IN DAILY 09/11/20 [History] PANTOPRAZOLE 40 mg Tablet [Protonix 40MG Tablet] 80 mg PO BID 09/11/20 [History] Ticagrelor [Brilinta] 90 mg PO BID 09/11/20 [History] Tiotropium [place] Inhaler [Spiriva 18 Mcg/Cap Inhaler] 2 puffs IH DAILY 09/11/20 [History] clonazePAM [Clonazepam] 2 mg PO UD PRN 09/11/20 [History] lisinopriL [Lisinopril] 2.5 mg PO DAILY PRN PRN 09/11/20 [History] Cholecalciferol (Vitamin D3) [Vitamin D3] 125 mcg PO DAILY 03/22/21 [History] Cyanocobalamin 500 Mcg [Vitamin B-12 500 MCG] 1,000 mcg PO DAILY 03/22/21 [History] Loratadine 10 mg [Claritin 10 mg] 10 mg PO DAILY 03/22/21 [History] Ranolazine 500 MG [Ranexa 500 MG] 500 mg PO BID 03/22/21 [History] Acetaminophen 500 mg [Tylenol Extra Strength 500 mg] 2,500 mg PO TID 03/30/21 [History] Nitroglycerin [Nitrolingual] 1 gm TL Q5MIN PRN MR X 3 PRN 03/30/21 [History] Hx Tetanus, Diphtheria Vaccination/Date Given: Yes (unsure) Hx Influenza Vaccination/Date Given: No Hx Pneumococcal Vaccination/Date Given: No Immunizations Up to Date: Yes Travel Risk - International Travel Have you traveled outside of the country in past 3 weeks: No - Coronavirus Screening Are you exhibiting any of the following symptoms?: No Close contact with a COVID-19 positive Pt in past 14-21 Days: No - Vaccine Status Have you recieved a Covid-19 vaccination: Yes Electrocardiograph Repairer: Moderna - Vaccination Dates Date of 2cond Vaccination (if applicable): Summer 2020 - Review of Systems Constitutional: No Symptoms Eyes: No Symptoms Ears, Nose, & Throat: No Symptoms Respiratory: No Symptoms Cardiac: No Symptoms Genitourinary Symptoms: Flank Pain (Bilateral) Musculoskeletal: No Symptoms Skin: No Symptoms Neurological: No Symptoms Psychological: No Symptoms Endocrine: No Symptoms Hematologic/Lymphatic: No Symptoms Immunological/Allergic: No Symptoms All Other Systems: Reviewed and Negative - Past Medical History Pertinent Past Medical History: Yes Neurological History: Peripheral Neuropathy, TIA ENT History: No Pertinent History Cardiac History: Aneurysm, Coronary Artery Disease, High Cholesterol, Hypertension, Myocardial Infarction ([place]) Respiratory History: COPD, Emphysema, Pneumonia, Sleep Apnea, Other Endocrine Medical History: Hypothyroidism Musculoskeletal History: Degenerative Disk Disease GI Medical History: Hernia History: Other Psycho-Social History: Anxiety Male Reproductive Disorders: No Pertinent History Other Medical History: CHRONIC BACK PAIN, carotid artery disease. KIDNEY STONES - Past Surgical History Past Surgical History: Yes Neuro Surgical History: No Pertinent History Cardiac: Cardiac Catheterization, Cardiac Stent Respiratory: Other Gastrointestinal: No Pertinent History Genitourinary: No Pertinent History Musculoskeletal: Orthopedic Surgery Male Surgical History: No Pertinent History Other Surgical History: R lung cut a 1/4 inch off the top. 1988, back surgery , inspire placement, rt leg fx - Social History Smoking Status: Current every day smoker How long have you smoked: 47 years Exposure to second hand smoke: No Drug Use: none Patient Lives Alone: No - Nursing Vital Signs Nursing Vital Signs: Initial Vital Signs Temperature 97.1 F 10/15/21 17:00 Pulse Rate 82 10/15/21 17:00 Respiratory Rate 18 10/15/21 17:00 Blood Pressure 187/96 10/15/21 17:00 O2 Sat by Pulse Oximetry 99 10/15/21 17:00 Pain Scale Pain Intensity 9 - Physical Exam General Appearance: no apparent distress, alert, anxiety Eye Exam: PERRL/EOMI, eyes nml inspection Ears, Nose, Throat Exam: normal ENT inspection, moist mucous membranes Neck Exam: normal inspection, non-tender, supple, full range of motion Respiratory Exam: normal breath sounds, lungs clear, airway intact, No chest tenderness, No respiratory distress Cardiovascular Exam: regular rate/rhythm, normal heart sounds, normal peripheral pulses Gastrointestinal/Abdomen Exam: soft, normal bowel sounds, No tenderness Rectal Exam: not done Back Exam: normal inspection, normal range of motion, CVA tenderness, No vertebral tenderness (Bilateral) Extremity Exam: normal inspection, normal range of motion, pelvis stable Neurologic Exam: alert, oriented x 3, cooperative, group home counselor II-XII nml as tested, normal mood/affect, nml cerebellar function, nml station & gait, sensation nml Skin Exam: normal color, warm, dry Lymphatic Exam: No adenopathy SpO2 Interpretation: normal SpO2: 99 O2 Delivery: Room Air Ordered Tests: Active Orders 24 hr Category Date Time Status IV Insertion STAT Care 10/15/21 17:18 Active ABDOMEN AND PELVIS W/0 CONTRAS [CT] Stat Exams 10/15/21 17:19 Taken AMYLASE Stat Lab 10/15/21 17:14 Completed CBC W DIFF Stat Lab 10/15/21 17:14 Completed CMP Stat Lab 10/15/21 17:14 Completed UA W/RFX CULTURE Stat Lab 10/15/21 17:14 Completed Medication Summary Discontinued Medications Generic Name Dose Route Start Last Admin Trade Name Perezq PRN Reason Stop Dose Admin Hydromorphone HCl 1 mg 10/15/21 17:18 10/15/21 17:45 Hydromorphone 1 Mg/1ml Inj 1 Mg/Ml Syringe IV 10/15/21 17:19 1 mg STAT ONE Administration Hydromorphone HCl Confirm 10/15/21 17:40 Hydromorphone 1 Mg/1ml Inj 1 Mg/Ml Syringe Administered 10/15/21 17:41 Dose 1 mg .ROUTE .STK-MED ONE Sodium Chloride 1,000 mls @ 999 mls/hr 10/15/21 17:18 10/15/21 18:50 Sodium Chloride 0.9% 1000 Ml IV 10/15/21 18:18 Infused .Q1H1M STA Infusion Sodium Chloride Confirm 10/15/21 17:40 Sodium Chloride 0.9% 1000 Ml Administered 10/15/21 17:41 Dose 1,000 mls @ ud .ROUTE .STK-MED ONE Ondansetron HCl 4 mg 10/15/21 17:18 10/15/21 17:44 Ondansetron Hcl 4 Mg/2 Ml Vial IV 10/15/21 17:19 4 mg STAT ONE Administration Ondansetron HCl Confirm 10/15/21 17:39 Ondansetron Hcl 4 Mg/2 Ml Vial Administered 10/15/21 17:40 Dose 4 mg .ROUTE .K-MED ONE Lab/Rad Data: Laboratory Result Diagrams 10/15/21 17:14 10/15/21 17:14 Laboratory Results 10/15/21 10/15/21 10/15/21 Range/Units 17:14 17:14 17:14 WBC 6.4 (4.0-10.5) x10^3/uL RBC 3.89 L (4.1-5.6) x10^6/uL Hgb 12.2 L (12.5-18.0) g/dL Hct 38.1 L (42-50) % MCV 97.9 (78-100) fL MCH 31.4 (26-32) pg MCHC 32.0 (32-36) g/dL RDW 14.0 (11.5-14.0) % Plt Count 156 (150-450) x10^3/uL MPV 8.8 (7.5-11.0) fL Gran % 72.9 H (36.0-66.0) % Immature Gran % (Auto) 0.3 (0.00-0.4) % Nucleat RBC Rel Count 0.0 (0.00-0.1) % Eos # (Auto) 0.07 (0-0.5) x10^3/uL Immature Gran # (Auto) 0.02 (0.00-0.03) x10^3u/L Absolute Lymphs (auto) 1.28 (1.0-4.6) x10^3/uL Absolute Monos (auto) 0.34 (0.0-1.3) x10^3/uL Absolute Nucleated RBC 0.00 (0.00-0.01) x10^3u/L Lymphocytes % 20.1 L (24.0-44.0) % Monocytes % 5.3 (0.0-12.0) % Eosinophils % 1.1 (0.00-5.0) % Basophils % 0.3 (0.0-0.4) % Absolute Granulocytes 4.63 (1.4-6.9) x10^3/uL Basophils # 0.02 (0-0.4) x10^3/uL Sodium 139 (137-145) mmol/L Potassium 3.7 (3.5-5.1) mmol/L Chloride 103 (98-107) mmol/L Carbon Dioxide 31 H (22-30) mmol/L Anion Gap 8.4 (5-15) MEQ/L BUN 13 (9-20) mg/dL Creatinine 1.28 H (0.66-1.25) mg/dL Estimated GFR > 60.0 ML/MIN Glucose 106 (74-106) mg/dL Calcium 8.6 (8.4-10.2) mg/dL Total Bilirubin 0.50 (0.2-1.3) mg/dL AST 17 (17-59) U/L ALT 11 (0-50) U/L Alkaline Phosphatase 78 (38-126) U/L Serum Total Protein 7.3 (6.3-8.2) g/dL Albumin 3.9 (3.5-5.0) g/dL Amylase 43 (30-110) U/L Urinalys Dipstick Clnc MAIN LAB Urine Color YELLOW (YELLOW) Urine Appearance CLEAR (CLEAR) Urine pH 6.0 (5-6) Ur Specific [place] 1.025 (1.005-1.025) POC Urine Protein Conf NEGATIVE (Negative) Urine Ketones NEGATIVE (NEGATIVE) Urine Nitrite NEGATIVE (NEGATIVE) Urine Bilirubin NEGATIVE (NEGATIVE) Urine Urobilinogen 0.2 (0-1) mg/dL Urine Leukocytes NEGATIVE (NEGATIVE) Urine WBC (Auto) 0-2 (0-5) /HPF Urine RBC (Auto) 0-2 (0-2) /HPF U Hyaline Cast (Auto) 0-2 (0-2) /LPF U Epithel Cells (Auto) RARE (FEW) /HPF Urine Bacteria (Auto) NONE SEEN (NEGATIVE) /HPF Urine RBC NEGATIVE (0-5) Dima/ul Urine Mucus (Auto) SLIGHT (NEGATIVE) /HPF Ur Culture Indicated? NO Urine Glucose NEGATIVE (NEGATIVE) mg/dL - Progress Progress: improved, pain not gone completely Progress Note: 10/15/21 19:28 CAT scan of the abdomen pelvis without contrast shows borderline dilated gallbladder consider ultrasound for further evaluation Counseled pt/family regarding: lab results, diagnosis, need for follow-up, rad results - Departure Departure Disposition: Home Clinical Impression: Flank pain Condition: Stable Critical Care Time: No Referrals: [facility]OSP[facility],'[facility] [Primary Care Provider] - Follow up/PCP as directed Additional Instructions: Drink plenty of fluids. Take your medication as prescribed. Follow-up with your primary care physician for further evaluation management.
[2021-10-15 17:37] LABS: Absolute Neutrophil Ct (ANC) 4.63 x10^3/uL (1.4-6.9); Basophil (Absolute #) 0.02 x10^3/uL (0-0.4); Eosinophil % 1.1 % (0.00-5.0); Eosinophil (Absolute #) 0.07 x10^3/uL (0-0.5); Hematocrit 38.1 % (42-50); Hemoglobin 12.2 g/dL (12.5-18.0); Lymphocyte (Absolute #) 1.28 x10^3/uL (1.0-4.6); Lymphocytes % 20.1 % (24.0-44.0); Mean Cell Volume 97.9 fL (78-100); Mean Corpuscular Hemoglobin 31.4 pg (26-32); Mean Platelet Volume 8.8 fL (7.5-11.0); Monocyte (Absolute #) 0.34 x10^3/uL (0.0-1.3); Monocytes % 5.3 % (0.0-12.0); Neutrophil % 72.9 % (36.0-66.0); Platelet Count 156 x10^3/uL (150-450); Red Blood Count 3.89 x10^6/uL (4.1-5.6); White Blood Count 6.4 x10^3/uL (4.0-10.5)
[2021-10-15] MEDS ORDERED: Zofran 4 MG/2 ML VIAL ONE (17:39)
[2021-10-15] MEDS ORDERED: Hydromorphone 1 mg/ml Injection ONE ×2 (17:40→19:45)
[2021-10-15] MEDS ORDERED: Sodium Chloride 0.9% 1000 ML 1,000 ML ONE (17:40)
[2021-10-15 17:46] LABS: Appearance CLEAR (CLEAR); Bilirubin NEGATIVE (NEGATIVE); Dipstick done @ ? MAIN LAB; Glucose NEGATIVE (NEGATIVE); Ketones NEGATIVE (NEGATIVE); Nitrite NEGATIVE (NEGATIVE); Protein,Urine Dip NEGATIVE (Negative); RBC NEGATIVE Ery/ul (0-5); Specific Gravity 1.025 (1.005-1.025); Urobilinogen 0.2 mg/dL (0-1)
[2021-10-15 17:47] LABS: Epithelial Cells RARE /HPF (FEW); Hyaline Casts 0-2 /LPF (0-2); Mucus SLIGHT /HPF (NEGATIVE); RBC 0-2 /HPF (0-2); WBC 0-2 /HPF (0-5)
[2021-10-15 17:53] LABS: ALBUMIN 3.9 g/dL (3.5-5.0); ALKALINE PHOSPHATASE 78 U/L (38-126); AMYLASE 43 U/L (30-110); ANION GAP 8.4 MEQ/L (5-15); BLOOD UREA NITROGEN 13 mg/dL (9-20); CHLORIDE 103 mmol/L (98-107); Calcium 8.6 mg/dL (8.4-10.2); Carbon Dioxide 31 mmol/L (22-30); Creatinine 1 1.28 mg/dL (0.66-1.25); EST GLOMERULAR FILTRATION RATE > 60.0 ML/MIN; Glucose 106 mg/dL (74-106); Potassium 3.7 mmol/L (3.5-5.1); SGOT/AST 17 U/L (17-59); SGPT/ALT 11 U/L (0-50); SODIUM 139 mmol/L (137-145); Total Protein 7.3 g/dL (6.3-8.2)
[2021-10-15 18:01] LABS: Bacteria NONE SEEN /HPF (NEGATIVE); Urine Cultured Indicated? NO
[2021-10-15] MEDS ORDERED: PERCOCET TABLET 5/325MG PO STA (19:30)
[2021-10-15] MEDS ORDERED: PERCOCET TABLET 5/325MG ONE (19:45)
[2021-10-15 20:04] VITALS: BP 156/109; PULSE 76; O2SAT 96
--- NOTE | 2021-10-15 22:16 | XRAY ---
Indication: Bilateral flank pain. Multiple contiguous axial images obtained through the abdomen and pelvis without contrast. Comparison: September 11, 2020 Lung bases again demonstrate scattered fibrosis/scarring. No infiltrate or effusion. Heart is not enlarged. Again small hiatal hernia. Again beam artifact from bilateral L4-L5 spinal fusion hardware. Noncontrasted stomach and bowel loops nonobstructed again with normal appendix and mild sigmoid diverticulosis. No free fluid/air. Stable tiny hepatic/splenic calcified granulomas. Remaining liver, gallbladder, pancreas, spleen, adrenal glands, kidneys, ureters, and bladder are unremarkable for noncontrast exam. Again moderate diffuse scattered vascular calcifications with stable 3.1 cm distal AAA. Osseous structures intact. Impression: 1. Again small hiatal hernia, pulmonary fibrosis/scarring, sigmoid diverticulosis, arteriosclerotic disease with AAA, and old granulomatous disease. 2. Remaining CT abdomen/pelvis without contrast exam is negative. Comment: Preliminary interpretation made by [facility]. No critical discrepancy.
== END 2021-10-15 20:04 | disposition home or self-care (01) ==
LOC: ED 16:50
DX: R10.9 Unspecified abdominal pain (principal); E78.5 Hyperlipidemia, unspecified; I10 Essential (primary) hypertension; J43.9 Emphysema, unspecified; Z72.0 Tobacco use; Z79.02 Long term (current) use of antithrombotics/antiplatelets; Z79.899 Other long term (current) drug therapy
CPT/HCPCS: 36000; 36415; 74176; 80053; 81015; 82150; 85025; 96360; 96374; 96375; 96376; 99284; J1170; J2405; A9270-GY

== ENCOUNTER 2021-10-20 00:43 | Emergency (ER) | payer OTHER ==
[2021-10-20 01:16] VITALS: O2SAT 98
--- NOTE | 2021-10-20 01:26 | ERPHSYRPT ---
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 Triage Nursing Assessment: pt alert and oriented, answers questions approp. pt with slow steady gait noted. skin warm and dry. respirations nonlabored. abd soft and nontender with bowel sounds wnl x 4 quads. Physician History: Patient is a 56-year-old male presents to our ED with complaints of lower abdominal pain. Patient states pain acutely started while he was attempting to lift a 500 gallon propane tank. Injury occurred late afternoon. No other injuries reported. Pain described as an ache that is localized. No radiation. Patient concerned as he has a history of AAA as well as nonspecific hernias of his abdomen. No other injuries reported. NO associated CP or SOB. NO N/V or diaphoresis. NO arm, neck or jaw pain. No cardiac or neuro symptomology. NO numbness tingling or weakness. Patient took Tylenol for pain control prior to arrival. Symptoms are mild to moderate in intensity. Palpation reproduces symptoms. Pain improved with rest. Patient denies testicular pain and tenderness. Patient voices no other complaints concerns at this time. Portions of this note were created with voice recognition technology. There may be grammatical, spelling, punctuation or sound alike errors Timing/Duration: today Activities at Onset: other (Lifting a 500 gallon propane tank) Quality: aching Abdominal Pain Onset Location: periumbilical Pain Radiation: no radiation Severity of Pain-Max: moderate Severity of Pain-Current: mild Modifying Factors: Improves With: palpation Associated Symptoms: denies symptoms Previous symptoms: no prior history Allergies/Adverse Reactions: hydrocodone bitartrate [From Vicodin] Allergy (Verified 10/20/21 01:04) Rash Iodinated Contrast Media Allergy (Verified 10/20/21 01:04) ketorolac [From Toradol] Allergy (Verified 10/20/21 01:04) Penicillins Allergy (Verified 10/20/21 01:04) venlafaxine Allergy (Verified 10/20/21 01:04) codeine Adverse Reaction (Verified 10/20/21 01:04) codeine phosphate [From Codar D] Adverse Reaction (Verified 10/20/21 01:04) morphine Adverse Reaction (Verified 10/20/21 01:04) pseudoephedrine HCl [From [place]] Adverse Reaction (Verified 10/20/21 01:04) Home Medications: Aspirin 81 gm Chew [Baby Aspirin 81 mg Chew] 81 mg PO DAILY 04/11/14 [History] Albuterol Sulfate [Proair Digihaler] 2 puff IH QID PRN PRN 09/11/20 [History] Atorvastatin Calcium 1 tab PO HS 09/11/20 [History] Budesonide/Formoterol Fumarate [Budesonide-Formoterol 160-4.5] 2 puffs IH BID 09/11/20 [History] Fluticasone Propionate [Flovent Diskus] 2 sprays IN DAILY 09/11/20 [History] PANTOPRAZOLE 40 mg Tablet [Protonix 40MG Tablet] 80 mg PO BID 09/11/20 [History] Ticagrelor [Brilinta] 90 mg PO BID 09/11/20 [History] Tiotropium [place] Inhaler [Spiriva 18 Mcg/Cap Inhaler] 2 puffs IH DAILY 09/11/20 [History] clonazePAM [Clonazepam] 2 mg PO UD PRN 09/11/20 [History] lisinopriL [Lisinopril] 2.5 mg PO DAILY PRN PRN 09/11/20 [History] Cholecalciferol (Vitamin D3) [Vitamin D3] 125 mcg PO DAILY 03/22/21 [History] Cyanocobalamin 500 Mcg [Vitamin B-12 500 MCG] 1,000 mcg PO DAILY 03/22/21 [History] Loratadine 10 mg [Claritin 10 mg] 10 mg PO DAILY 03/22/21 [History] Ranolazine 500 MG [Ranexa 500 MG] 500 mg PO BID 03/22/21 [History] Acetaminophen 500 mg [Tylenol Extra Strength 500 mg] 2,500 mg PO TID 03/30/21 [History] Nitroglycerin [Nitrolingual] 1 gm TL Q5MIN PRN MR X 3 PRN 03/30/21 [History] Hx Tetanus, Diphtheria Vaccination/Date Given: Yes (unsure) Hx Influenza Vaccination/Date Given: No Hx Pneumococcal Vaccination/Date Given: No Immunizations Up to Date: Yes Travel Risk - International Travel Have you traveled outside of the country in past 3 weeks: No - Coronavirus Screening Are you exhibiting any of the following symptoms?: No Close contact with a COVID-19 positive Pt in past 14-21 Days: No - Vaccine Status Have you recieved a Covid-19 vaccination: Yes History 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 - Vaccination Dates Date of 2cond Vaccination (if applicable): Summer 2020 - Review of Systems Constitutional: No Symptoms, No Fever, No Chills Eyes: No Symptoms Ears, Nose, & Throat: No Symptoms Respiratory: No Symptoms, No Cough, No Dyspnea Cardiac: No Symptoms, No Chest Pain, No Edema, No Syncope Abdominal/Gastrointestinal: No Symptoms, No Abdominal Pain, No Nausea, No Vomiting, No Diarrhea Genitourinary Symptoms: No Symptoms, No Dysuria Musculoskeletal: No Symptoms, No Back Pain, No Neck Pain Skin: No Symptoms, No Rash Neurological: No Symptoms, No Dizziness, No Focal Weakness, No Sensory Changes Psychological: No Symptoms Endocrine: No Symptoms Hematologic/Lymphatic: No Symptoms Immunological/Allergic: No Symptoms All Other Systems: Reviewed and Negative - Past Medical History Pertinent Past Medical History: Yes Neurological History: Peripheral Neuropathy, TIA ENT History: No Pertinent History Cardiac History: Aneurysm, Coronary Artery Disease, High Cholesterol, Hypertension, Myocardial Infarction ([place]) Respiratory History: COPD, Emphysema, Pneumonia, Sleep Apnea, Other Endocrine Medical History: Hypothyroidism Musculoskeletal History: Degenerative Disk Disease GI Medical History: Hernia History: Other Psycho-Social History: Anxiety Male Reproductive Disorders: No Pertinent History Other Medical History: CHRONIC BACK PAIN, carotid artery disease. KIDNEY STONES - Past Surgical History Past Surgical History: Yes Neuro Surgical History: No Pertinent History Cardiac: Cardiac Catheterization, Cardiac Stent Respiratory: Other Gastrointestinal: No Pertinent History Genitourinary: No Pertinent History Musculoskeletal: Orthopedic Surgery Male Surgical History: No Pertinent History Other Surgical History: R lung cut a 1/4 inch off the top. 1988, back surgery , inspire placement, rt leg fx - Social History Smoking Status: Current every day smoker How long have you smoked: 47 years Exposure to second hand smoke: No Drug Use: none Patient Lives Alone: No - Nursing Vital Signs Nursing Vital Signs: Initial Vital Signs Temperature 98.1 F 10/20/21 01:04 Pulse Rate 71 10/20/21 01:04 Respiratory Rate 20 10/20/21 01:04 Blood Pressure 174/99 10/20/21 01:04 O2 Sat by Pulse Oximetry 98 10/20/21 01:04 Pain Scale Pain Intensity 10 - Physical Exam General Appearance: no apparent distress, alert Eye Exam: PERRL/EOMI, eyes nml inspection Ears, Nose, Throat Exam: normal ENT inspection, TMs normal, pharynx normal, moist mucous membranes Neck Exam: normal inspection, non-tender, supple, full range of motion Respiratory Exam: normal breath sounds, lungs clear, airway intact, No respiratory distress Cardiovascular Exam: regular rate/rhythm, normal heart sounds, normal peripheral pulses Gastrointestinal/Abdomen Exam: soft, normal bowel sounds, other (Localized periumbilical tenderness that reproduces patient's pain upon palpation. No obvious hernias. Overlying soft tissue intact. No signs of trauma. No testicular pain or tenderness.), No tenderness, No mass Back Exam: normal inspection, normal range of motion, No CVA tenderness, No vertebral tenderness Extremity Exam: normal inspection, normal range of motion, pelvis stable Neurologic Exam: alert, oriented x 3, cooperative, normal mood/affect, nml cerebellar function, sensation nml, No motor deficits Skin Exam: normal color, warm, dry Lymphatic Exam: No adenopathy SpO2 Interpretation: normal SpO2: 98 O2 Delivery: Room Air - Course Nursing assessment & vital signs reviewed: Yes - CT Exams Abdomen/Pelvis CT Interpretation: Tele-radiologist Report (Splenomegaly, 32.5 mm infrarenal AAA. AAA. There is advanced calcified atherosclerosis. Dystrophic calcifications are noted in the prostate.) Ordered Tests: Active Orders 24 hr Category Date Time Status ABDOMEN AND PELVIS W/0 CONTRAS [CT] Stat Exams 10/20/21 01:19 Taken Medication Summary Discontinued Medications Generic Name Dose Route Start Last Admin Trade Name Freq PRN Reason Stop Dose Admin Droperidol 2.5 mg 10/20/21 01:25 10/20/21 01:53 Droperidol 5 Mg/2 Ml Vial IV 10/20/21 01:26 2.5 mg STAT ONE Administration Droperidol Confirm 10/20/21 01:47 Droperidol 5 Mg/2 Ml Vial Administered 10/20/21 01:48 Dose 5 mg .ROUTE .STCurriculet-MED ONE - Progress Progress: improved Progress Note: Patient reassessed. Patient resting comfortably in bed. Patient received droperidol for pain control. CT abdomen pelvis negative for acute pathology. No indication for further work-up at this time. Will discharge home. Patient agrees to follow-up with his primary care doctor within 48 hours for reevaluation. Portions of this note were created with voice recognition technology. There may be grammatical, spelling, punctuation or sound alike errors 10/20/21 03:25 Counseled pt/family regarding: diagnosis, need for follow-up, rad results - Departure Departure Disposition: Home Clinical Impression: Splenomegaly, Prostate calcifications, Muscle strain Condition: Stable Critical Care Time: No Referrals: [facility]OSPITAL,'[facility] [Primary Care Provider] - Follow up/PCP as directed Additional Instructions: Discharge/Care Plan DONTE ROBLESNIDIA TRINH was seen on 10/20/21 in the Emergency Room. The patient was counseled regarding Diagnosis,Lab results, Imaging studies, need for follow up and when to return to the Emergency Room. Prescriptions given: Discharge Note I have spoken with the patient and/or caregivers. I have explained the patient's condition, diagnosis and treatment plan based on the information available to me at this time. I have answered the patient's and/or caregiver's questions and addressed any concerns. The patient and/or caregivers have as good understanding of the patient's diagnosis, condition and treatment plan as can be expected at this point. The vital signs have been stable. The patient's condition is stable and appropriate for discharge from the emergency department. The patient will pursue further outpatient evaluation with the primary care physician or other designated or consulting physician as outlined in the discharge instructions. The patient and/or caregivers are agreeable to this plan of care and follow-up instructions have been explained in detail. The patient and/or caregivers have received these instruction. The patient/and or caregivers are aware that any significant change in condition or worsening of symptoms should prompt an immediate return to this or the closest emergency department or call 911.
[2021-10-20 03:30] VITALS: BP 164/78; PULSE 64
--- NOTE | 2021-10-20 09:01 | XRAY ---
Indication: Abdomen pain and diarrhea. Multiple contiguous axial images obtained through the abdomen and pelvis without contrast. Comparison: October 15, 2021 Lung bases again demonstrate scattered fibrosis/scarring without focal infiltrate or effusion. Heart not enlarged. Previous hiatal hernia not seen presumed sliding-type. Stomach is now distended with food/fluid. Noncontrasted stomach and bowel loops nonobstructed again with normal appendix and sigmoid diverticulosis. No free fluid/air. Stable tiny hepatic/splenic calcified granulomas. Remaining liver, gallbladder, pancreas, spleen, adrenal glands, kidneys, ureters, and bladder remain unremarkable for noncontrast exam. Again moderate scattered vascular calcifications with stable 3.1 cm distal AAA. Osseous structures intact again with L4-L5 spinal fusion hardware. Impression: Stable pulmonary fibrosis/scarring, sigmoid diverticulosis, arteriosclerotic disease with AAA, and L4-L5 fusion surgery. No new/acute findings. Comment: Preliminary interpretation made by [facility]. No critical discrepancy.
== END 2021-10-20 03:27 | disposition home or self-care (01) ==
LOC: ED 00:43
DX: S39.011A Strain of muscle, fascia and tendon of abdomen, initial encounter (principal); X50.0XXA Overexertion from strenuous movement or load, initial encounter; R16.1 Splenomegaly, not elsewhere classified; N42.0 Calculus of prostate; E78.5 Hyperlipidemia, unspecified; I10 Essential (primary) hypertension; J43.9 Emphysema, unspecified; Z72.0 Tobacco use; Z79.02 Long term (current) use of antithrombotics/antiplatelets; Z79.899 Other long term (current) drug therapy
CPT/HCPCS: 74176; 96372; 99283

== ENCOUNTER 2021-10-24 22:48 | Emergency (ER) | payer OTHER ==
--- NOTE | 2021-10-24 22:54 | ERPHSYRPT ---
- History of Present Illness Time Seen by Provider: 10/24/21 22:53 Source: patient, family Exam Limitations: no limitations Physician History: This a 56-year-old white male patient who presents with acute exacerbation of chronic recurrent back pain. This patient has had 10 visits to the emergency department since 08/08/2021. 8 of them abdomen back pain, 1 for abdominal pain and 1 for chest pain. Patient has no abdominal pain today. He has no chest pain today. His entire back from the neck down to his lumbar back posteriorly and testicle anteriorly hurt. These were similar symptoms that he had when I saw him within the last week to 10 days. The patient has not fallen. Patient was seen here in the emergency department and pain specialist at that clinic 4 days ago on the same day. Patient's story about [facility] and [facility] and [facility] and surgical procedures and neurosurgeon consultation denials have been the same as far as I can document has not changed in several weeks. Patient does not have any difficulty having bowel movements. He has no loss of bowel or bladder control. He has no urinary retention. Patient has had Percocet several times without any significant problems or side effects Timing/Duration: other (Chronic recurrent) Quality: aching Back Pain Location: C-spine, T-spine, lumbar spine, paraspinous muscles Severity of Pain-Max: moderate Severity of Pain-Current: moderate Modifying Factors: Improves With: movement Associated Symptoms: lower back pain, No urinary incontinence, No loss of bowel control, No constipation, No problems urinating, No numbness in legs/feet Previous symptoms: same symptoms as today, recently seen, recently treated Allergies/Adverse Reactions: hydrocodone bitartrate [From Vicodin] Allergy (Verified 10/24/21 23:12) Rash Iodinated Contrast Media Allergy (Verified 10/24/21 23:12) ketorolac [From Toradol] Allergy (Verified 10/24/21 23:12) Penicillins Allergy (Verified 10/24/21 23:12) venlafaxine Allergy (Verified 10/24/21 23:12) codeine Adverse Reaction (Verified 10/24/21 23:12) codeine phosphate [From Codar D] Adverse Reaction (Verified 10/24/21 23:12) morphine Adverse Reaction (Verified 10/24/21 23:12) pseudoephedrine HCl [From Codar D] Adverse Reaction (Verified 10/24/21 23:12) Home Medications: Aspirin 81 gm Chew [Baby Aspirin 81 mg Chew] 81 mg PO DAILY 04/11/14 [History] Albuterol Sulfate [Proair Digihaler] 2 puff IH QID PRN PRN 09/11/20 [History] Atorvastatin Calcium 1 tab PO HS 09/11/20 [History] Budesonide/Formoterol Fumarate [Budesonide-Formoterol 160-4.5] 2 puffs IH BID 09/11/20 [History] Fluticasone Propionate [Flovent Diskus] 2 sprays IN DAILY 09/11/20 [History] PANTOPRAZOLE 40 mg Tablet [Protonix 40MG Tablet] 80 mg PO BID 09/11/20 [History] Ticagrelor [Brilinta] 90 mg PO BID 09/11/20 [History] Tiotropium [place] Inhaler [Spiriva 18 Mcg/Cap Inhaler] 2 puffs IH DAILY 09/11/20 [History] clonazePAM [Clonazepam] 2 mg PO UD PRN 09/11/20 [History] lisinopriL [Lisinopril] 2.5 mg PO DAILY PRN PRN 09/11/20 [History] Cholecalciferol (Vitamin D3) [Vitamin D3] 125 mcg PO DAILY 03/22/21 [History] Cyanocobalamin 500 Mcg [Vitamin B-12 500 MCG] 1,000 mcg PO DAILY 03/22/21 [History] Loratadine 10 mg [Claritin 10 mg] 10 mg PO DAILY 03/22/21 [History] Ranolazine 500 MG [Ranexa 500 MG] 500 mg PO BID 03/22/21 [History] Acetaminophen 500 mg [Tylenol Extra Strength 500 mg] 2,500 mg PO TID 03/30/21 [History] Nitroglycerin [Nitrolingual] 1 gm TL Q5MIN PRN MR X 3 PRN 03/30/21 [History] Hx Tetanus, Diphtheria Vaccination/Date Given: Yes (unsure) Hx Influenza Vaccination/Date Given: No Hx Pneumococcal Vaccination/Date Given: No Travel Risk - International Travel Have you traveled outside of the country in past 3 weeks: No - Coronavirus Screening Are you exhibiting any of the following symptoms?: No Close contact with a COVID-19 positive Pt in past 14-21 Days: No - Vaccine Status Have you recieved a Covid-19 vaccination: Yes Tandem Operator: Moderna - Vaccination Dates Date of 2cond Vaccination (if applicable): Summer 2020 - Review of Systems Constitutional: No Symptoms Eyes: No Symptoms Ears, Nose, & Throat: No Symptoms Respiratory: No Symptoms Cardiac: No Symptoms Abdominal/Gastrointestinal: No Symptoms Genitourinary Symptoms: No Symptoms Musculoskeletal: Back Pain Skin: No Symptoms Neurological: No Symptoms Psychological: No Symptoms Endocrine: No Symptoms Hematologic/Lymphatic: No Symptoms Immunological/Allergic: No Symptoms All Other Systems: Reviewed and Negative - Past Medical History Pertinent Past Medical History: Yes Neurological History: Peripheral Neuropathy, TIA ENT History: No Pertinent History Cardiac History: Aneurysm, Coronary Artery Disease, High Cholesterol, Hypertension, Myocardial Infarction ([place]) Respiratory History: COPD, Emphysema, Pneumonia, Sleep Apnea, Other Endocrine Medical History: Hypothyroidism Musculoskeletal History: Degenerative Disk Disease GI Medical History: Hernia History: Other Psycho-Social History: Anxiety Male Reproductive Disorders: No Pertinent History Other Medical History: CHRONIC BACK PAIN, carotid artery disease. KIDNEY STONES - Past Surgical History Past Surgical History: Yes Neuro Surgical History: No Pertinent History Cardiac: Cardiac Catheterization, Cardiac Stent Respiratory: Other Gastrointestinal: No Pertinent History Genitourinary: No Pertinent History Musculoskeletal: Orthopedic Surgery Male Surgical History: No Pertinent History Other Surgical History: R lung cut a 1/4 inch off the top. 1988, back surgery , inspire placement, rt leg fx - Social History Smoking Status: Current every day smoker How long have you smoked: 47 years Exposure to second hand smoke: No Drug Use: none Patient Lives Alone: No - Nursing Vital Signs Nursing Vital Signs: Initial Vital Signs Temperature 96.9 F 10/24/21 23:04 Pulse Rate 70 10/24/21 23:04 Respiratory Rate 18 10/24/21 23:04 Blood Pressure 161/94 10/24/21 23:04 O2 Sat by Pulse Oximetry 97 10/24/21 23:04 Pain Scale Pain Intensity 10 - Physical Exam General Appearance: no apparent distress, alert, anxiety Eye Exam: PERRL/EOMI, eyes nml inspection Ears, Nose, Throat Exam: normal ENT inspection, moist mucous membranes Neck Exam: normal inspection, non-tender, supple, full range of motion Respiratory Exam: airway intact, No chest tenderness, No respiratory distress Gastrointestinal Exam: No tenderness Rectal Exam: not done Back Exam: normal inspection, normal range of motion, muscle spasm, No CVA tenderness, No vertebral tenderness Extremity Exam: normal inspection, normal range of motion, pelvis stable Neurologic Exam: alert, oriented x 3, cooperative, spanish speaking babysitter II-XII nml as tested, normal mood/affect, nml cerebellar function, nml station & gait, sensation nml Skin Exam: normal color, warm, dry Lymphatic Exam: No adenopathy SpO2 Interpretation: normal O2 Delivery: Room Air - Course Nursing assessment & vital signs reviewed: Yes - Progress Progress: improved Progress Note: 10/24/21 23:44 Medical decision making: This patient does not require a work-up including labs or radiographic studies. He has the same issue these had for several weeks. He did not fall. He was told that he can come to the emergency room at any time. However, meets physician will assess whether the patient will require any kind of work-up. Each physician will assess as to whether or not the patient receives narcotic pain medicine or other type of management. Today, I will provide the patient with a muscle relaxer, steroids and 1 narcotic pill. We will make arrangements for an outpatient, [facility] nurse reach out to him to see if there is any way we can help him so he can decrease his return to the emergency department and decrease his need for hospitalization. Counseled pt/family regarding: diagnosis, need for follow-up - Departure Departure Disposition: Home Clinical Impression: Acute exacerbation of chronic low back pain Condition: Stable Critical Care Time: No Referrals: HOSPITAL,'S [Primary Care Provider] - Follow up/PCP as directed Additional Instructions: Call your pain specialist, primary care provider, [facility] for further instructions and to manage your chronic back pain.
[2021-10-24 23:05] VITALS: O2SAT 97
[2021-10-24] MEDS ORDERED: Norflex 100 MG Tablet PO ONE (23:38)
[2021-10-24] MEDS ORDERED: OXYCODONE-ACETAMINOPHEN 10-325 PO STA (23:38)
[2021-10-24] MEDS ORDERED: DELTASONE 20 MG PO ONE (23:38)
[2021-10-24] MEDS ORDERED: DELTASONE 20 MG ONE (23:42)
[2021-10-24] MEDS ORDERED: OXYCODONE-ACETAMINOPHEN 10-325 ONE (23:42)
[2021-10-25 00:25] VITALS: BP 160/94; PULSE 60
== END 2021-10-25 00:20 | disposition home or self-care (01) ==
LOC: ED 22:48
DX: G89.29 Other chronic pain (principal); M54.50 Low back pain, unspecified; M54.6 Pain in thoracic spine; M54.2 Cervicalgia; E78.5 Hyperlipidemia, unspecified; I10 Essential (primary) hypertension; J43.9 Emphysema, unspecified; Z72.0 Tobacco use; Z79.02 Long term (current) use of antithrombotics/antiplatelets; Z79.899 Other long term (current) drug therapy
CPT/HCPCS: 99282; A9270-GY

== ENCOUNTER 2021-11-09 14:39 | Day surgery (SDC) | payer OTHER ==
[2011-11-20 09:43] VITALS: BP 125/77
[2021-11-09] MEDS ORDERED: XYLOCAINE-MPF 1% 5ML SDV IJ ONE (14:40)
[2021-11-09] MEDS ORDERED: Depo-Medrol 40 MG/ML IM ONE (14:40)
[2021-11-09] MEDS ORDERED: Sodium Chloride 0.9(Preservative Free) 10 ML IJ ONE (14:40)
[2021-11-09] MEDS ORDERED: Versed 2 MG/2 ML Injection ONE (15:29)
[2021-11-09] MEDS ORDERED: Lactated Ringers 1,000 ML IV ONE (16:33)
[2021-11-09] MEDS ORDERED: DIPRIVAN 200 MG/20 ML IV ONE (16:37)
--- NOTE | 2021-11-10 07:44 | XRAY ---
Indication: Lumbar KATARZYNA. Intraoperative fluoroscopy provided for 18 seconds. 2 digital spot image submitted for interpretation demonstrates posterior needle tip projecting just posterior to L3-L4 interspace. Small amount of contrast was injected for needle tip placement. Correlate with intraoperative findings/report. Incidental bilateral L4-L5 fusion hardware.
--- NOTE | 2021-11-10 22:06 | XRAY ---
18 seconds of fluoroscopy was used in surgery for a lumbar KATARZYNA.
== END 2021-11-09 17:10 | disposition home or self-care (01) ==
LOC: SDC-PAIN 14:39
PROVIDERS: ATTEND Psychiatry & Neurology Pain Medicine
DX: M54.16 Radiculopathy, lumbar region (principal); Z79.899 Other long term (current) drug therapy
CPT/HCPCS: 62323; 72100; 77003; J1030; J2250; J2704; Q9966

== ENCOUNTER 2022-01-28 | Emergency (ER) | payer OTHER ==
--- NOTE | 2022-01-28 00:07 | ERPHSYRPT ---
- History of Present Illness Time Seen by Provider: 01/28/22 00:07 Historian: patient Exam Limitations: no limitations Physician History: This is a 56-year-old white male patient of the [facility] system who frequents our emergency department for various pain issues. Most commonly gets abdominal pain and back pain. Patient states that he has had a negative gallbladder ultrasound in the past. He has right upper quad abdominal pain that has been present for several days and typically worsens after eating fatty greasy spicy foods. On 01/24/2022 patient underwent HIDA scan of his gallbladder. He does not have the results of this. However, since the testing was performed he has had increased right upper quadrant abdominal pain. Patient has history of a 3.25 cm infrarenal abdominal aortic aneurysm with advanced atherosclerotic disease. He also has a known history of splenomegaly and nonspecific abdominal wall hernias. Patient has a history of coronary artery disease, hyperlipidemia, hypertension, TIAs and peripheral neuropathies. Patient states that Tylenol he used at 2200 on 01/27/2022 did not help his pain much. Patient cannot take Nebo or hydrocodone. However, he is able to tolerate Dilaudid intravenously and oxycodone orally. Timing/Duration: day(s) (2 to 3 days), worse Quality: aching Abdominal Pain Onset Location: RUQ Pain Radiation: no radiation Severity of Pain-Max: moderate Severity of Pain-Current: moderate Modifying Factors: Improves With: eating (Fatty greasy spicy foods worsen) Associated Symptoms: nausea, No chest pain, No shortness of breath, No vomiting Previous symptoms: same symptoms as today, no recent treatment Allergies/Adverse Reactions: hydrocodone bitartrate [From Vicodin] Allergy (Verified 10/24/21 23:12) Rash Iodinated Contrast Media Allergy (Verified 10/24/21 23:12) ketorolac [From Toradol] Allergy (Verified 10/24/21 23:12) Penicillins Allergy (Verified 10/24/21 23:12) venlafaxine Allergy (Verified 10/24/21 23:12) codeine Adverse Reaction (Verified 10/24/21 23:12) codeine phosphate [From Codar D] Adverse Reaction (Verified 10/24/21 23:12) morphine Adverse Reaction (Verified 10/24/21 23:12) pseudoephedrine HCl [From Codar D] Adverse Reaction (Verified 10/24/21 23:12) Home Medications: Aspirin 81 gm Chew [Baby Aspirin 81 mg Chew] 81 mg PO DAILY 04/11/14 [History] Albuterol Sulfate [Proair Digihaler] 2 puff IH QID PRN PRN 09/11/20 [History] Atorvastatin Calcium 1 tab PO HS 09/11/20 [History] Budesonide/Formoterol Fumarate [Budesonide-Formoterol 160-4.5] 2 puffs IH BID 09/11/20 [History] Fluticasone Propionate [Flovent Diskus] 2 sprays IN DAILY 09/11/20 [History] PANTOPRAZOLE 40 mg Tablet [Protonix 40MG Tablet] 80 mg PO BID 09/11/20 [History] Ticagrelor [Brilinta] 90 mg PO BID 09/11/20 [History] Tiotropium [place] Inhaler [Spiriva 18 Mcg/Cap Inhaler] 2 puffs IH DAILY 09/11/20 [History] clonazePAM [Clonazepam] 2 mg PO UD PRN 09/11/20 [History] lisinopriL [Lisinopril] 2.5 mg PO DAILY PRN PRN 09/11/20 [History] Cholecalciferol (Vitamin D3) [Vitamin D3] 125 mcg PO DAILY 03/22/21 [History] Cyanocobalamin 500 Mcg [Vitamin B-12 500 MCG] 1,000 mcg PO DAILY 03/22/21 [History] Loratadine 10 mg [Claritin 10 mg] 10 mg PO DAILY 03/22/21 [History] Ranolazine 500 MG [Ranexa 500 MG] 500 mg PO BID 03/22/21 [History] Acetaminophen 500 mg [Tylenol Extra Strength 500 mg] 2,500 mg PO TID 03/30/21 [History] Nitroglycerin [Nitrolingual] 1 gm TL Q5MIN PRN MR X 3 PRN 03/30/21 [History] Hx Tetanus, Diphtheria Vaccination/Date Given: Yes (unsure) Hx Influenza Vaccination/Date Given: No Hx Pneumococcal Vaccination/Date Given: No Travel Risk - International Travel Have you traveled outside of the country in past 3 weeks: No - Coronavirus Screening Are you exhibiting any of the following symptoms?: No Close contact with a COVID-19 positive Pt in past 14-21 Days: No - Vaccine Status Have you recieved a Covid-19 vaccination: Yes Cushion Cover Inspector: Moderna - Vaccination Dates Date of 2cond Vaccination (if applicable): Summer 2020 - Review of Systems Constitutional: No Symptoms Eyes: No Symptoms Ears, Nose, & Throat: No Symptoms Respiratory: No Symptoms Cardiac: No Symptoms Abdominal/Gastrointestinal: Abdominal Pain (Right upper quadrant), Nausea, No Vomiting Genitourinary Symptoms: No Symptoms Musculoskeletal: No Symptoms Skin: No Symptoms Neurological: No Symptoms Psychological: No Symptoms Endocrine: No Symptoms Hematologic/Lymphatic: No Symptoms Immunological/Allergic: No Symptoms All Other Systems: Reviewed and Negative - Past Medical History Pertinent Past Medical History: Yes Neurological History: Peripheral Neuropathy, TIA ENT History: No Pertinent History Cardiac History: Aneurysm, Coronary Artery Disease, High Cholesterol, Hypert ension, Myocardial Infarction ([place]) Respiratory History: COPD, Emphysema, Pneumonia, Sleep Apnea, Other Endocrine Medical History: Hypothyroidism Musculoskeletal History: Degenerative Disk Disease GI Medical History: Hernia History: Other Psycho-Social History: Anxiety Male Reproductive Disorders: No Pertinent History Other Medical History: CHRONIC BACK PAIN, carotid artery disease. KIDNEY STONES - Past Surgical History Past Surgical History: Yes Neuro Surgical History: No Pertinent History Cardiac: Cardiac Catheterization, Cardiac Stent Respiratory: Other Gastrointestinal: No Pertinent History Genitourinary: No Pertinent History Musculoskeletal: Orthopedic Surgery Male Surgical History: No Pertinent History Other Surgical History: R lung cut a 1/4 inch off the top. 1988, back surgery , inspire placement, rt leg fx - Social History Smoking Status: Current every day smoker How long have you smoked: 47 years Exposure to second hand smoke: No Drug Use: none Patient Lives Alone: No - Nursing Vital Signs Nursing Vital Signs: Initial Vital Signs Temperature 97.8 F 01/28/22 00:07 Pulse Rate 77 01/28/22 00:07 Respiratory Rate 18 01/28/22 00:07 O2 Sat by Pulse Oximetry 96 01/28/22 00:07 Pain Scale Pain Intensity 10 - Physical Exam General Appearance: no apparent distress, alert, anxiety Eye Exam: PERRL/EOMI, eyes nml inspection Ears, Nose, Throat Exam: normal ENT inspection, moist mucous membranes Neck Exam: normal inspection, non-tender, supple, full range of motion Respiratory Exam: normal breath sounds, lungs clear, airway intact, No chest tenderness, No respiratory distress Cardiovascular Exam: regular rate/rhythm, normal heart sounds, normal peripheral pulses Gastrointestinal/Abdomen Exam: soft, normal bowel sounds, tenderness (Right upper quadrant), No guarding, No rebound Rectal Exam: not done Back Exam: normal inspection, normal range of motion, No CVA tenderness, No vertebral tenderness Extremity Exam: normal inspection, normal range of motion, pelvis stable Neurologic Exam: alert, oriented x 3, cooperative, patient scheduler II-XII nml as tested, normal mood/affect, nml cerebellar function, nml station & gait Skin Exam: normal color, warm, dry Lymphatic Exam: No adenopathy SpO2 Interpretation: normal O2 Delivery: Room Air - Course Nursing assessment & vital signs reviewed: Yes Ordered Tests: Active Orders 24 hr Category Date Time Status IV Insertion STAT Care 01/28/22 00:51 Active ABDOMEN AND PELVIS W/0 CONTRAS [CT] Stat Exams 01/28/22 00:52 Taken AMYLASE Stat Lab 01/28/22 01:10 Completed CBC W DIFF Stat Lab 01/28/22 01:10 Completed CMP Stat Lab 01/28/22 01:10 Completed LIPASE Stat Lab 01/28/22 01:10 Completed UA W/RFX CULTURE Stat Lab 01/28/22 01:02 Completed Medication Summary Discontinued Medications Generic Name Dose Route Start Last Admin Trade Name Freq PRN Reason Stop Dose Admin Hydromorphone HCl 1 mg 01/28/22 00:52 01/28/22 01:15 Hydromorphone 1 Mg/1ml Inj 1 Mg/Ml Syringe IV 01/28/22 00:53 1 mg STAT ONE Administration Hydromorphone HCl Confirm 01/28/22 01:12 Hydromorphone 1 Mg/1ml Inj 1 Mg/Ml Syringe Administered 01/28/22 01:13 Dose 1 mg .ROUTE .STK-MED ONE Sodium Chloride 1,000 mls @ 999 mls/hr 01/28/22 00:52 01/28/22 01:15 Sodium Chloride 0.9% 1000 Ml IV 01/28/22 01:52 999 mls/hr .Q1H1M STA Administration Sodium Chloride Confirm 01/28/22 01:12 Sodium Chloride 0.9% 1000 Ml Administered 01/28/22 01:13 Dose 1,000 mls @ ud .ROUTE .STK-MED ONE Ondansetron HCl 4 mg 01/28/22 00:52 01/28/22 01:14 Ondansetron Hcl 4 Mg/2 Ml Vial IV 01/28/22 00:53 4 mg STAT ONE Administration Ondansetron HCl Confirm 01/28/22 01:12 Ondansetron Hcl 4 Mg/2 Ml Vial Administered 01/28/22 01:13 Dose 4 mg .ROUTE .STK-MED ONE Lab/Rad Data: Laboratory Result Diagrams 01/28/22 01:10 01/28/22 01:10 Laboratory Results 01/28/22 01/28/22 01/28/22 Range/Units 01:10 01:10 01:02 WBC 8.7 (4.0-10.5) x10^3/uL RBC 4.24 (4.1-5.6) x10^6/uL Hgb 12.9 (12.5-18.0) g/dL Hct 40.7 L (42-50) % MCV 96.0 (78-100) fL MCH 30.4 (26-32) pg MCHC 31.7 L (32-36) g/dL RDW 14.6 H (11.5-14.0) % Plt Count 171 (150-450) x10^3/uL MPV 9.0 (7.5-11.0) fL Gran % 72.4 H (36.0-66.0) % Immature Gran % (Auto) 0.3 (0.00-0.4) % Nucleat RBC Rel Count 0.0 (0.00-0.1) % Eos # (Auto) 0.10 (0-0.5) x10^3/uL Immature Gran # (Auto) 0.03 (0.00-0.03) x10^3u/L Absolute Lymphs (auto) 1.67 (1.0-4.6) x10^3/uL Absolute Monos (auto) 0.56 (0.0-1.3) x10^3/uL Absolute Nucleated RBC 0.00 (0.00-0.01) x10^3u/L Lymphocytes % 19.3 L (24.0-44.0) % Monocytes % 6.5 (0.0-12.0) % Eosinophils % 1.2 (0.00-5.0) % Basophils % 0.3 (0.0-0.4) % Absolute Granulocytes 6.28 (1.4-6.9) x10^3/uL Basophils # 0.03 (0-0.4) x10^3/uL Sodium 138 (137-145) mmol/L Potassium 3.4 L (3.5-5.1) mmol/L Chloride 102 (98-107) mmol/L Carbon Dioxide 32 H (22-30) mmol/L Anion Gap 7.4 (5-15) MEQ/L BUN 11 (9-20) mg/dL Creatinine 1.16 (0.66-1.25) mg/dL Estimated GFR > 60.0 ML/MIN Glucose 89 (74-106) mg/dL Calcium 8.7 (8.4-10.2) mg/dL Total Bilirubin 0.90 (0.2-1.3) mg/dL AST 21 (17-59) U/L ALT 12 (0-50) U/L Alkaline Phosphatase 85 (38-126) U/L Serum Total Protein 7.3 (6.3-8.2) g/dL Albumin 3.8 (3.5-5.0) g/dL Amylase 38 (30-110) U/L Lipase 45 (23-300) U/L Urinalys Dipstick Clnc MAIN LAB Urine Color YELLOW (YELLOW) Urine Appearance CLEAR (CLEAR) Urine pH 5.5 (5-6) Ur Specific [place] 1.015 (1.005-1.025) POC Urine Protein Conf NEGATIVE (Negative) Urine Ketones NEGATIVE (NEGATIVE) Urine Nitrite NEGATIVE (NEGATIVE) Urine Bilirubin NEGATIVE (NEGATIVE) Urine Urobilinogen 0.2 (0-1) mg/dL Urine Leukocytes NEGATIVE (NEGATIVE) Urine WBC (Auto) 3-5 A (0-5) /HPF Urine RBC (Auto) NONE (0-2) /HPF U Hyaline Cast (Auto) 0-2 (0-2) /LPF U Epithel Cells (Auto) NONE (FEW) /HPF Urine Bacteria (Auto) NONE (NEGATIVE) /HPF Urine RBC NEGATIVE (0-5) Dima/ul Urine Mucus (Auto) SLIGHT A (NEGATIVE) /HPF Ur Culture Indicated? NO Urine Glucose NEGATIVE (NEGATIVE) mg/dL - Progress Progress: improved, pain not gone completely Progress Note: 01/28/22 01:52 CAT scan of the abdomen pelvis without contrast shows no acute abnormality in the abdomen and or pelvis. Counseled pt/family regarding: lab results, diagnosis, need for follow-up, rad results - Departure Departure Disposition: Home Clinical Impression: Right upper quadrant abdominal pain Condition: Stable Critical Care Time: No Referrals: [facility]OSPITAL,'S [Primary Care Provider] - Follow up/PCP as directed Additional Instructions: Drink plenty of clear liquids. Avoid fatty greasy spicy foods. Follow-up with your primary care physician for further evaluation and management.
[2022-01-28] MEDS ORDERED: Hydromorphone 1 mg/ml Injection IV ONE (00:52)
[2022-01-28] MEDS ORDERED: Sodium Chloride 0.9% 1000 ML 1,000 ML IV STA (00:52)
[2022-01-28] MEDS ORDERED: Zofran 4 MG/2 ML VIAL IV ONE (00:52)
[2022-01-28] MEDS ORDERED: Sodium Chloride 0.9% 1000 ML 1,000 ML ONE (01:12)
[2022-01-28] MEDS ORDERED: Hydromorphone 1 mg/ml Injection ONE (01:12)
[2022-01-28] MEDS ORDERED: Zofran 4 MG/2 ML VIAL ONE (01:12)
[2022-01-28 01:14] LABS: Appearance CLEAR (CLEAR); Bilirubin NEGATIVE (NEGATIVE); Glucose NEGATIVE (NEGATIVE); Ketones NEGATIVE (NEGATIVE)
[2022-01-28 01:15] LABS: Dipstick done @ ? MAIN LAB; Nitrite NEGATIVE (NEGATIVE); Ph 5.5 (5-6); Protein,Urine Dip NEGATIVE (Negative); RBC NEGATIVE Ery/ul (0-5); Specific Gravity 1.015 (1.005-1.025); Urobilinogen 0.2 mg/dL (0-1)
[2022-01-28 01:17] LABS: Hyaline Casts 0-2 /LPF (0-2); Mucus SLIGHT /HPF (NEGATIVE)
[2022-01-28 01:17] LABS: Absolute Neutrophil Ct (ANC) 6.28 x10^3/uL (1.4-6.9); Basophil (Absolute #) 0.03 x10^3/uL (0-0.4); Eosinophil % 1.2 % (0.00-5.0); Hematocrit 40.7 % (42-50); Hemoglobin 12.9 g/dL (12.5-18.0); Lymphocyte (Absolute #) 1.67 x10^3/uL (1.0-4.6); Lymphocytes % 19.3 % (24.0-44.0); Mean Corpuscular Hemoglobin 30.4 pg (26-32); Mean Corpuscular Hgb Concent. 31.7 g/dL (32-36); Monocyte (Absolute #) 0.56 x10^3/uL (0.0-1.3); Monocytes % 6.5 % (0.0-12.0); Neutrophil % 72.4 % (36.0-66.0); Platelet Count 171 x10^3/uL (150-450); Red Blood Count 4.24 x10^6/uL (4.1-5.6); Red Cell Distribution Width 14.6 % (11.5-14.0); White Blood Count 8.7 x10^3/uL (4.0-10.5)
[2022-01-28 01:22] LABS: Urine Cultured Indicated? NO
[2022-01-28 01:25] LABS: ALBUMIN 3.8 g/dL (3.5-5.0); ALKALINE PHOSPHATASE 85 U/L (38-126); AMYLASE 38 U/L (30-110); ANION GAP 7.4 MEQ/L (5-15); BLOOD UREA NITROGEN 11 mg/dL (9-20); CHLORIDE 102 mmol/L (98-107); Calcium 8.7 mg/dL (8.4-10.2); Carbon Dioxide 32 mmol/L (22-30); Creatinine 1 1.16 mg/dL (0.66-1.25); EST GLOMERULAR FILTRATION RATE > 60.0 ML/MIN; Glucose 89 mg/dL (74-106); LIPASE 45 U/L (23-300); Potassium 3.4 mmol/L (3.5-5.1); SGOT/AST 21 U/L (17-59); SGPT/ALT 12 U/L (0-50); SODIUM 138 mmol/L (137-145); Total Protein 7.3 g/dL (6.3-8.2)
[2022-01-28 01:58] VITALS: O2SAT 95
[2022-01-28 02:36] VITALS: BP 166/87; PULSE 78
--- NOTE | 2022-01-28 07:28 | XRAY ---
Indication: Right upper quadrant pain. Multiple contiguous axial images obtained through the abdomen and pelvis without contrast. Comparison: October 20, 2021. Lung bases again demonstrates scattered fibrosis/scarring. No infiltrate or effusion. Heart not enlarged again with coronary calcifications. Stable small hiatal hernia. Noncontrasted stomach and bowel loops nonobstructed with normal appendix. There is mild diffuse scatter colonic fecal debris throughout. Stable sigmoid diverticulosis without diverticulitis and tiny hepatic/splenic calcified granulomas. No free fluid/air. Remaining liver, gallbladder, pancreas, spleen, adrenal glands, kidneys, ureters, and bladder are unremarkable for noncontrast exam. Again moderate scatter Vasser calcifications with 3.1 cm distal AAA. Osseous structures intact again with L4-L5 fusion hardware. Impression: 1. Mild diffuse fecal stasis. 2. Stable pulmonary fibrosis/scarring, hiatal hernia. Sigmoid diverticulosis, arteriosclerotic disease, and L4-L5 fusion surgery. 3. Remaining CT abdomen/pelvis without contrast exam is negative. Comment: Preliminary interpretation made by [facility]. No critical discrepancy.
== END 2022-01-28 02:36 | disposition home or self-care (01) ==
LOC: ED
DX: R10.11 Right upper quadrant pain (principal); E78.5 Hyperlipidemia, unspecified; I10 Essential (primary) hypertension; Z79.02 Long term (current) use of antithrombotics/antiplatelets; Z79.899 Other long term (current) drug therapy; Z72.0 Tobacco use
CPT/HCPCS: 36000; 36415; 74176; 80053; 81015; 82150; 83690; 85025; 96360; 96374; 99284; J1170; J2405

== ENCOUNTER 2022-02-04 22:03 | Emergency (ER) | payer OTHER ==
[2022-02-04] MEDS ORDERED: Sodium Chloride 0.9% 1000 ML 1,000 ML IV STA (22:44)
[2022-02-04] MEDS ORDERED: Zofran 4 MG/2 ML VIAL IV ONE (22:44)
[2022-02-04] MEDS ORDERED: Hydromorphone 1 mg/ml Injection IV ONE (22:48)
[2022-02-04] MEDS ORDERED: Hydromorphone 1 mg/ml Injection ONE (22:59)
[2022-02-04] MEDS ORDERED: Zofran 4 MG/2 ML VIAL ONE (22:59)
[2022-02-04] MEDS ORDERED: Sodium Chloride 0.9% 1000 ML 1,000 ML ONE (22:59)
[2022-02-04 23:06] LABS: Absolute Neutrophil Ct (ANC) 5.24 x10^3/uL (1.4-6.9); Basophil (Absolute #) 0.02 x10^3/uL (0-0.4); Eosinophil % 1.2 % (0.00-5.0); Eosinophil (Absolute #) 0.09 x10^3/uL (0-0.5); Hematocrit 38.2 % (42-50); Hemoglobin 12.1 g/dL (12.5-18.0); Lymphocyte (Absolute #) 1.63 x10^3/uL (1.0-4.6); Lymphocytes % 21.6 % (24.0-44.0); Mean Cell Volume 96.7 fL (78-100); Mean Corpuscular Hemoglobin 30.6 pg (26-32); Mean Corpuscular Hgb Concent. 31.7 g/dL (32-36); Mean Platelet Volume 9.3 fL (7.5-11.0); Monocyte (Absolute #) 0.53 x10^3/uL (0.0-1.3); Neutrophil % 69.6 % (36.0-66.0); Platelet Count 143 x10^3/uL (150-450); Red Blood Count 3.95 x10^6/uL (4.1-5.6); Red Cell Distribution Width 15.1 % (11.5-14.0); White Blood Count 7.5 x10^3/uL (4.0-10.5)
[2022-02-04 23:20] LABS: ALBUMIN 3.6 g/dL (3.5-5.0); ALKALINE PHOSPHATASE 81 U/L (38-126); BLOOD UREA NITROGEN 16 mg/dL (9-20); CHLORIDE 106 mmol/L (98-107); Calcium 8.5 mg/dL (8.4-10.2); Carbon Dioxide 28 mmol/L (22-30); Creatinine 1 1.02 mg/dL (0.66-1.25); EST GLOMERULAR FILTRATION RATE > 60.0 ML/MIN; Glucose 82 mg/dL (74-106); LIPASE 86 U/L (23-300); Potassium 3.7 mmol/L (3.5-5.1); SGOT/AST 14 U/L (17-59); SGPT/ALT 12 U/L (0-50); SODIUM 140 mmol/L (137-145); Total Protein 6.7 g/dL (6.3-8.2)
[2022-02-04 23:31] LABS: Appearance CLEAR (CLEAR); Bilirubin SMALL (NEGATIVE); Dipstick done @ ? MAIN LAB; Glucose NEGATIVE (NEGATIVE); Ketones NEGATIVE (NEGATIVE); Nitrite NEGATIVE (NEGATIVE); Ph 5.5 (5-6); Protein,Urine Dip TRACE (Negative); RBC NEGATIVE Ery/ul (0-5); Specific Gravity 1.025 (1.005-1.025); Urobilinogen 0.2 mg/dL (0-1)
[2022-02-04 23:32] LABS: Epithelial Cells RARE /HPF (FEW); Hyaline Casts 0-2 /LPF (0-2); Mucus SLIGHT /HPF (NEGATIVE); Urine Cultured Indicated? NO; WBC 0-2 /HPF (0-5)
--- NOTE | 2022-02-04 23:39 | ERPHSYRPT ---
- History of Present Illness Time Seen by Provider: 02/04/22 22:08 Historian: patient Exam Limitations: no limitations Patient Subjective Stated Complaint: pt states "My stomach has been hurting for some time." Triage Nursing Assessment: pt ambulatory to bed by self, pt a & o x3, pt c/o RUQ for about a week and a half, pt has had a hydra scan done ordered by PCP but pt states he does not have results yet, pt was seen 01/28/22 in ED for same com plaint, pt states he has not ate all day d/t pain, pt last took tylenol at 2130 Physician History: 46-year-old male with history of chronic right upper quadrant pain evaluated recently here presented in ER again with worsening pain right upper quadrant with associated nausea. Patient described severe sharp shooting pain off and on worsening for the last 2 to 3 days and taking Tylenol does not help. Patient has HIDA scan done at [facility] but does not have results. No fever or chills reported. Timing/Duration: day(s), intermittent, worse Activities at Onset: rest Quality: sharpness Abdominal Pain Onset Location: RUQ Pain Radiation: no radiation Severity of Pain-Max: severe Severity of Pain-Current: severe Modifying Factors: Worsens With: movement, palpation Associated Symptoms: nausea Previous symptoms: same symptoms as today Allergies/Adverse Reactions: hydrocodone bitartrate [From Vicodin] Allergy (Verified 02/04/22 22:22) Rash Iodinated Contrast Media Allergy (Verified 02/04/22 22:22) ketorolac [From Toradol] Allergy (Verified 02/04/22 22:22) Penicillins Allergy (Verified 02/04/22 22:22) venlafaxine Allergy (Verified 02/04/22 22:22) codeine Adverse Reaction (Verified 02/04/22 22:22) codeine phosphate [From Codar D] Adverse Reaction (Verified 02/04/22 22:22) morphine Adverse Reaction (Verified 02/04/22 22:22) pseudoephedrine HCl [From Codar D] Adverse Reaction (Verified 02/04/22 22:22) Home Medications: Aspirin 81 gm Chew [Baby Aspirin 81 mg Chew] 81 mg PO DAILY 04/11/14 [History] Albuterol Sulfate [Proair Digihaler] 2 puff IH QID PRN PRN 09/11/20 [History] Atorvastatin Calcium 1 tab PO HS 09/11/20 [History] Budesonide/Formoterol Fumarate [Budesonide-Formoterol 160-4.5] 2 puffs IH BID 09/11/20 [History] Fluticasone Propionate [Flovent Diskus] 2 sprays IN DAILY 09/11/20 [History] PANTOPRAZOLE 40 mg Tablet [Protonix 40MG Tablet] 80 mg PO BID 09/11/20 [History] Ticagrelor [Brilinta] 90 mg PO BID 09/11/20 [History] Tiotropium [place] Inhaler [Spiriva 18 Mcg/Cap Inhaler] 2 puffs IH DAILY 09/11/20 [History] clonazePAM [Clonazepam] 2 mg PO UD PRN 09/11/20 [History] lisinopriL [Lisinopril] 2.5 mg PO DAILY PRN PRN 09/11/20 [History] Cholecalciferol (Vitamin D3) [Vitamin D3] 125 mcg PO DAILY 03/22/21 [History] Cyanocobalamin 500 Mcg [Vitamin B-12 500 MCG] 1,000 mcg PO DAILY 03/22/21 [History] Loratadine 10 mg [Claritin 10 mg] 10 mg PO DAILY 03/22/21 [History] Ranolazine 500 MG [Ranexa 500 MG] 500 mg PO BID 03/22/21 [History] Acetaminophen 500 mg [Tylenol Extra Strength 500 mg] 2,500 mg PO TID 03/30/21 [History] Nitroglycerin [Nitrolingual] 1 gm TL Q5MIN PRN MR X 3 PRN 03/30/21 [History] Hx Tetanus, Diphtheria Vaccination/Date Given: No (unsure) Hx Influenza Vaccination/Date Given: No Hx Pneumococcal Vaccination/Date Given: No Immunizations Up to Date: No Travel Risk - International Travel Have you traveled outside of the country in past 3 weeks: No - Coronavirus Screening Are you exhibiting any of the following symptoms?: No Close contact with a COVID-19 positive Pt in past 14-21 Days: No - Vaccine Status Have you recieved a Covid-19 vaccination: Yes Medical Reception: Moderna - Vaccination Dates Date of 2cond Vaccination (if applicable): Summer 2020 - Review of Systems Constitutional: No Symptoms Eyes: No Symptoms Ears, Nose, & Throat: No Symptoms Respiratory: No Symptoms Cardiac: No Symptoms Abdominal/Gastrointestinal: Abdominal Pain, Nausea Genitourinary Symptoms: No Symptoms Musculoskeletal: No Symptoms Skin: No Symptoms Neurological: No Symptoms Endocrine: No Symptoms Hematologic/Lymphatic: No Symptoms Immunological/Allergic: No Symptoms - Past Medical History Pertinent Past Medical History: Yes Neurological History: Peripheral Neuropathy, TIA ENT History: No Pertinent History Cardiac History: Aneurysm, Coronary Artery Disease, High Cholesterol, Hypertensi on, Myocardial Infarction ([place]) Respiratory History: COPD, Emphysema, Pneumonia, Sleep Apnea, Other Endocrine Medical History: Hypothyroidism Musculoskeletal History: Degenerative Disk Disease GI Medical History: Hernia History: Other Psycho-Social History: Anxiety Male Reproductive Disorders: No Pertinent History Other Medical History: CHRONIC BACK PAIN, carotid artery disease. KIDNEY STONES - Past Surgical History Past Surgical History: Yes Neuro Surgical History: No Pertinent History Cardiac: Cardiac Catheterization, Cardiac Stent Respiratory: Other Gastrointestinal: No Pertinent History Genitourinary: No Pertinent History Musculoskeletal: Orthopedic Surgery Male Surgical History: No Pertinent History Other Surgical History: R lung cut a 1/4 inch off the top. 1988, back surgery , inspire placement, rt leg fx - Social History Smoking Status: Current every day smoker How long have you smoked: 47 years Exposure to second hand smoke: No Drug Use: none Patient Lives Alone: No - Nursing Vital Signs Nursing Vital Signs: Initial Vital Signs Temperature 98.0 F 02/04/22 22:23 Pulse Rate 72 02/04/22 22:23 Respiratory Rate 18 02/04/22 22:23 Blood Pressure 181/90 02/04/22 22:23 O2 Sat by Pulse Oximetry 97 02/04/22 22:23 Pain Scale Pain Intensity 7 - Physical Exam General Appearance: no apparent distress Eye Exam: PERRL/EOMI Ears, Nose, Throat Exam: normal ENT inspection Neck Exam: normal inspection, full range of motion Respiratory Exam: normal breath sounds, lungs clear Cardiovascular Exam: regular rate/rhythm, normal heart sounds, normal peripheral pulses Gastrointestinal/Abdomen Exam: soft, normal bowel sounds, tenderness (Right upper quadrant) Back Exam: normal inspection, normal range of motion Extremity Exam: normal inspection, normal range of motion Neurologic Exam: alert, oriented x 3, cooperative Skin Exam: normal color SpO2 Interpretation: normal SpO2: 96 O2 Delivery: Room Air Ordered Tests: Active Orders 24 hr Category Date Time Status IV Insertion STAT Care 02/04/22 22:44 Active NPO (ED) STAT Care 02/04/22 22:44 Active ABDOMEN AND PELVIS W/0 CONTRAS [CT] Stat Exams 02/04/22 22:45 Taken CBC W DIFF Stat Lab 02/04/22 23:04 Completed CMP Stat Lab 02/04/22 23:04 Completed LIPASE Stat Lab 02/04/22 23:04 Completed Lactic Acid Stat Lab 02/04/22 22:59 Completed UA W/RFX CULTURE Stat Lab 02/04/22 23:26 Completed Medication Summary Discontinued Medications Generic Name Dose Route Start Last Admin Trade Name Freq PRN Reason Stop Dose Admin Diphenhydramine HCl 25 mg 02/05/22 00:19 02/05/22 00:21 Diphenhydramine Hcl 50 Mg/Ml Vial IV 02/05/22 00:20 25 mg STAT ONE Administration Diphenhydramine HCl Confirm 02/05/22 00:21 Diphenhydramine Hcl 50 Mg/Ml Vial Administered 02/05/22 00:22 Dose 50 mg .ROUTE .STK-MED ONE Hydromorphone HCl 1 mg 02/04/22 22:48 02/04/22 23:02 Hydromorphone 1 Mg/1ml Inj 1 Mg/Ml Syringe IV 02/04/22 22:49 1 mg STAT ONE Administration Hydromorphone HCl Confirm 02/04/22 22:59 Hydromorphone 1 Mg/1ml Inj 1 Mg/Ml Syringe Administered 02/04/22 23:00 Dose 1 mg .ROUTE .STK-MED ONE Hydromorphone HCl Confirm 02/05/22 00:16 Hydromorphone 1 Mg/1ml Inj 1 Mg/Ml Syringe Administered 02/05/22 00:17 Dose 1 mg .ROUTE .STK-MED ONE Sodium Chloride 1,000 mls @ 999 mls/hr 02/04/22 22:44 02/05/22 00:20 Sodium Chloride 0.9% 1000 Ml IV 02/04/22 23:44 Infused .Q1H1M STA Infusion Sodium Chloride Confirm 02/04/22 22:59 Sodium Chloride 0.9% 1000 Ml Administered 02/04/22 23:00 Dose 1,000 mls @ ud .ROUTE .STK-MED ONE Metoclopramide HCl 10 mg 02/05/22 00:19 02/05/22 00:22 Metoclopramide Hcl 10 Mg/2 Ml Vial IV 02/05/22 00:20 10 mg STAT ONE Administration Metoclopramide HCl Confirm 02/05/22 00:21 Metoclopramide Hcl 10 Mg/2 Ml Vial Administered 02/05/22 00:22 Dose 10 mg .ROUTE .STK-MED ONE Ondansetron HCl 4 mg 02/04/22 22:44 02/04/22 23:02 Ondansetron Hcl 4 Mg/2 Ml Vial IV 02/04/22 22:45 4 mg STAT ONE Administration Ondansetron HCl Confirm 02/04/22 22:59 Ondansetron Hcl 4 Mg/2 Ml Vial Administered 02/04/22 23:00 Dose 4 mg .ROUTE .STK-MED ONE Lab/Rad Data: Laboratory Result Diagrams 02/04/22 23:04 02/04/22 23:04 Laboratory Results 02/04/22 02/04/22 02/04/22 Range/Units 23:26 23:04 23:04 WBC 7.5 (4.0-10.5) x10^3/uL RBC 3.95 L (4.1-5.6) x10^6/uL Hgb 12.1 L (12.5-18.0) g/dL Hct 38.2 L (42-50) % MCV 96.7 (78-100) fL MCH 30.6 (26-32) pg MCHC 31.7 L (32-36) g/dL RDW 15.1 H (11.5-14.0) % Plt Count 143 L (150-450) x10^3/uL MPV 9.3 (7.5-11.0) fL Gran % 69.6 H (36.0-66.0) % Immature Gran % (Auto) 0.3 (0.00-0.4) % Nucleat RBC Rel Count 0.0 (0.00-0.1) % Eos # (Auto) 0.09 (0-0.5) x10^3/uL Immature Gran # (Auto) 0.02 (0.00-0.03) x10^3u/L Absolute Lymphs (auto) 1.63 (1.0-4.6) x10^3/uL Absolute Monos (auto) 0.53 (0.0-1.3) x10^3/uL Absolute Nucleated RBC 0.00 (0.00-0.01) x10^3u/L Lymphocytes % 21.6 L (24.0-44.0) % Monocytes % 7.0 (0.0-12.0) % Eosinophils % 1.2 (0.00-5.0) % Basophils % 0.3 (0.0-0.4) % Absolute Granulocytes 5.24 (1.4-6.9) x10^3/uL Basophils # 0.02 (0-0.4) x10^3/uL Sodium 140 (137-145) mmol/L Potassium 3.7 (3.5-5.1) mmol/L Chloride 106 (98-107) mmol/L Carbon Dioxide 28 (22-30) mmol/L Anion Gap 9.0 (5-15) MEQ/L BUN 16 (9-20) mg/dL Creatinine 1.02 (0.66-1.25) mg/dL Estimated GFR > 60.0 ML/MIN Glucose 82 (74-106) mg/dL Lactic Acid (0.4-2.0) Calcium 8.5 (8.4-10.2) mg/dL Total Bilirubin 0.50 (0.2-1.3) mg/dL AST 14 L (17-59) U/L ALT 12 (0-50) U/L Alkaline Phosphatase 81 (38-126) U/L Serum Total Protein 6.7 (6.3-8.2) g/dL Albumin 3.6 (3.5-5.0) g/dL Lipase 86 (23-300) U/L Urinalys Dipstick Clnc MAIN LAB Urine Color DARK YELLOW (YELLOW) Urine Appearance CLEAR (CLEAR) Urine pH 5.5 (5-6) Ur Specific [place] 1.025 (1.005-1.025) POC Urine Protein Conf TRACE A (Negative) Urine Ketones NEGATIVE (NEGATIVE) Urine Nitrite NEGATIVE (NEGATIVE) Urine Bilirubin SMALL A (NEGATIVE) Urine Urobilinogen 0.2 (0-1) mg/dL Urine Leukocytes NEGATIVE (NEGATIVE) Urine WBC (Auto) 0-2 (0-5) /HPF Urine RBC (Auto) 3-5 A (0-2) /HPF U Hyaline Cast (Auto) 0-2 (0-2) /LPF U Epithel Cells (Auto) RARE (FEW) /HPF Urine Bacteria (Auto) NONE (NEGATIVE) /HPF Urine RBC NEGATIVE (0-5) Dima/ul Urine Mucus (Auto) SLIGHT A (NEGATIVE) /HPF Ur Culture Indicated? NO Urine Glucose NEGATIVE (NEGATIVE) mg/dL 02/04/22 Range/Units 22:59 WBC (4.0-10.5) x10^3/uL RBC (4.1-5.6) x10^6/uL Hgb (12.5-18.0) g/dL Hct (42-50) % MCV (78-100) fL MCH (26-32) pg MCHC (32-36) g/dL RDW (11.5-14.0) % Plt Count (150-450) x10^3/uL MPV (7.5-11.0) fL Gran % (36.0-66.0) % Immature Gran % (Auto) (0.00-0.4) % Nucleat RBC Rel Count (0.00-0.1) % Eos # (Auto) (0-0.5) x10^3/uL Immature Gran # (Auto) (0.00-0.03) x10^3u/L Absolute Lymphs (auto) (1.0-4.6) x10^3/uL Absolute Monos (auto) (0.0-1.3) x10^3/uL Absolute Nucleated RBC (0.00-0.01) x10^3u/L Lymphocytes % (24.0-44.0) % Monocytes % (0.0-12.0) % Eosinophils % (0.00-5.0) % Basophils % (0.0-0.4) % Absolute Granulocytes (1.4-6.9) x10^3/uL Basophils # (0-0.4) x10^3/uL Sodium (137-145) mmol/L Potassium (3.5-5.1) mmol/L Chloride (98-107) mmol/L Carbon Dioxide (22-30) mmol/L Anion Gap (5-15) MEQ/L BUN (9-20) mg/dL Creatinine (0.66-1.25) mg/dL Estimated GFR ML/MIN Glucose (74-106) mg/dL Lactic Acid 0.7 (0.4-2.0) Calcium (8.4-10.2) mg/dL Total Bilirubin (0.2-1.3) mg/dL AST (17-59) U/L ALT (0-50) U/L Alkaline Phosphatase (38-126) U/L Serum Total Protein (6.3-8.2) g/dL Albumin (3.5-5.0) g/dL Lipase (23-300) U/L Urinalys Dipstick Clnc Urine Color (YELLOW) Urine Appearance (CLEAR) Urine pH (5-6) Ur Specific [place] (1.005-1.025) POC Urine Protein Conf (Negative) Urine Ketones (NEGATIVE) Urine Nitrite (NEGATIVE) Urine Bilirubin (NEGATIVE) Urine Urobilinogen (0-1) mg/dL Urine Leukocytes (NEGATIVE) Urine WBC (Auto) (0-5) /HPF Urine RBC (Auto) (0-2) /HPF U Hyaline Cast (Auto) (0-2) /LPF U Epithel Cells (Auto) (FEW) /HPF Urine Bacteria (Auto) (NEGATIVE) /HPF Urine RBC (0-5) Dima/ul Urine Mucus (Auto) (NEGATIVE) /HPF Ur Culture Indicated? Urine Glucose (NEGATIVE) mg/dL - Progress Progress: improved, pain not gone completely, re-examined Progress Note: 02/05/22 00:55 56-year-old is evaluated for worsening upper abdominal pain. He has a chronic upper abdominal pain. Given fluids and symptomatic treatment, on reevaluation pain is better. Abdominal exam is soft on reevaluation. Has normal white count, unremarkable chemistries and liver enzymes. No UTI. CT abdomen pelvis again negative for any acute intra-abdominal findings. Stable size of aneurysm. Recommended outpatient follow-up with the [facility] primary care and general surgery for reevaluation. Discussed signs symptoms of worsening needing return to ER which he seems understanding. Stable for discharge. Counseled pt/family regarding: lab results, diagnosis, need for follow-up, rad results - Departure Departure Disposition: Home Clinical Impression: Upper abdominal pain Condition: Stable Critical Care Time: No Referrals: [facility]OSPITAL,'[facility] [Primary Care Provider] - Follow up/PCP as directed (In 2 days for reevaluation) Instructions: Severe Abdominal Pain, Adult (DC) Additional Instructions: Take pain medications as needed. Follow-up with primary care and general surgery at [facility] for reevaluation. Return to ER for intractable abdominal pain/vomiting/fever chills etc.
[2022-02-05 00:05] VITALS: BP 134/80
[2022-02-05] MEDS ORDERED: Hydromorphone 1 mg/ml Injection ONE (00:16)
[2022-02-05] MEDS ORDERED: BENADRYL 50 MG/ML IV ONE (00:19)
[2022-02-05] MEDS ORDERED: Reglan 10 MG/2 ML IV ONE (00:19)
[2022-02-05] MEDS ORDERED: BENADRYL 50 MG/ML ONE (00:21)
[2022-02-05] MEDS ORDERED: Reglan 10 MG/2 ML ONE (00:21)
[2022-02-05] MEDS ORDERED: Hydromorphone 1 mg/ml Injection IV ONE (00:22)
[2022-02-05 00:55] VITALS: PULSE 98; O2SAT 98
--- NOTE | 2022-02-05 08:13 | XRAY ---
Indication: Right upper quadrant pain. Multiple contiguous axial images obtained through the abdomen and pelvis without contrast. Comparison: January 28, 2022 Lung bases again demonstrates scattered fibrosis/scarring. Heart not enlarged. Stable small hiatal hernia. Noncontrasted stomach and bowel loops remain nonobstructed again with normal appendix. There remains mild diffuse scattered colonic fecal debris throughout and sigmoid diverticulosis without diverticulitis. Stable tiny hepatic/splenic calcified granulomas. No free fluid/air. Remaining liver, gallbladder, pancreas, spleen, adrenal glands, kidneys, ureters, and bladder are unremarkable for noncontrast exam. Stable moderate scattered aortoiliac calcifications and 3.1 cm distal AAA. Osseous structures intact again with L4-L5 posterior fusion hardware. Impression: No change compared to CT 7 days ago again demonstrating pulmonary fibrosis/scarring, hiatal hernia, diffuse fecal stasis, sigmoid diverticulosis, arteriosclerotic disease, and L4-L5 fusion. No new/acute findings on this noncontrast exam. Comment: Preliminary interpretation made by C. No critical discrepancy.
== END 2022-02-05 01:08 | disposition home or self-care (01) ==
LOC: ED 22:03
DX: R10.11 Right upper quadrant pain (principal); R11.0 Nausea; E78.5 Hyperlipidemia, unspecified; I10 Essential (primary) hypertension; Z79.02 Long term (current) use of antithrombotics/antiplatelets; Z79.899 Other long term (current) drug therapy; Z72.0 Tobacco use
CPT/HCPCS: 36000; 36415; 74176; 80053; 81015; 83605; 83690; 85025; 96360; 96374; 96375; 96376; 99284; J1170; J1200; J2405

== ENCOUNTER 2022-02-12 23:46 | Emergency (ER) | payer OTHER ==
[2022-02-13 00:02] VITALS: BP 155/87; PULSE 83; O2SAT 97
--- NOTE | 2022-02-13 01:13 | ERPHSYRPT ---
- History of Present Illness Time Seen by Provider: 02/13/22 00:36 Source: patient Exam Limitations: no limitations Patient Subjective Stated Complaint: Pt reports having chronic back pain. Had to move his aunt from her apartment this weekend. He was doing a lot of heavy l ifting, and his pain has become much worse. Triage Nursing Assessment: Pt ambulated to bed without difficulty. Pt did have facial grimacing and "stiff" movements. Denies any numbness, tingling to BLE despite lower back pain radiating to BLE. Physician History: Patient here with exasperation of chronic back pain. Patient states he was moving furniture this past weekend with his aunt. States that he had exasperation of his left low back pain. Radiates down his left leg. No other red flag symptoms for back pain. No falls no trauma. Patient states he has had multiple back surgeries. No fever chills, loss of bowel or bladder function. States he has tried home Tylenol. Patient states that he is on a pain management contract due to his multiple back surgeries and previous pain medication use. Timing/Duration: other (2-3 days) Modifying Factors: Improves With: acetaminophen Associated Symptoms: other Allergies/Adverse Reactions: hydrocodone bitartrate [From Vicodin] Allergy (Verified 02/04/22 22:22) Rash Iodinated Contrast Media Allergy (Verified 02/04/22 22:22) ketorolac [From Toradol] Allergy (Verified 02/04/22 22:22) Penicillins Allergy (Verified 02/04/22 22:22) venlafaxine Allergy (Verified 02/04/22 22:22) codeine Adverse Reaction (Verified 02/04/22 22:22) codeine phosphate [From Codar D] Adverse Reaction (Verified 02/04/22 22:22) morphine Adverse Reaction (Verified 02/04/22 22:22) pseudoephedrine HCl [From Codar D] Adverse Reaction (Verified 02/04/22 22:22) Home Medications: Aspirin 81 gm Chew [Baby Aspirin 81 mg Chew] 81 mg PO DAILY 04/11/14 [History] Albuterol Sulfate [Proair Digihaler] 2 puff IH QID PRN PRN 09/11/20 [History] Atorvastatin Calcium 1 tab PO HS 09/11/20 [History] Budesonide/Formoterol Fumarate [Budesonide-Formoterol 160-4.5] 2 puffs IH BID 09/11/20 [History] Fluticasone Propionate [Flovent Diskus] 2 sprays IN DAILY 09/11/20 [History] PANTOPRAZOLE 40 mg Tablet [Protonix 40MG Tablet] 80 mg PO BID 09/11/20 [History] Ticagrelor [Brilinta] 90 mg PO BID 09/11/20 [History] Tiotropium [place] Inhaler [Spiriva 18 Mcg/Cap Inhaler] 2 puffs IH DAILY 09/11/20 [History] clonazePAM [Clonazepam] 2 mg PO UD PRN 09/11/20 [History] lisinopriL [Lisinopril] 2.5 mg PO DAILY PRN PRN 09/11/20 [History] Cholecalciferol (Vitamin D3) [Vitamin D3] 125 mcg PO DAILY 03/22/21 [History] Cyanocobalamin 500 Mcg [Vitamin B-12 500 MCG] 1,000 mcg PO DAILY 03/22/21 [History] Loratadine 10 mg [Claritin 10 mg] 10 mg PO DAILY 03/22/21 [History] Ranolazine 500 MG [Ranexa 500 MG] 500 mg PO BID 03/22/21 [History] Acetaminophen 500 mg [Tylenol Extra Strength 500 mg] 2,500 mg PO TID 03/30/21 [History] Nitroglycerin [Nitrolingual] 1 gm TL Q5MIN PRN MR X 3 PRN 03/30/21 [History] Hx Tetanus, Diphtheria Vaccination/Date Given: No (unsure) Hx Influenza Vaccination/Date Given: No Hx Pneumococcal Vaccination/Date Given: No Travel Risk - International Travel Have you traveled outside of the country in past 3 weeks: No - Coronavirus Screening Are you exhibiting any of the following symptoms?: No - Vaccine Status Have you recieved a Covid-19 vaccination: Yes Car Lot 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: Moderna - Vaccination Dates Date of 2cond Vaccination (if applicable): Summer 2020 - Review of Systems Constitutional: No Fever, No Chills Eyes: No Symptoms Ears, Nose, & Throat: No Symptoms Respiratory: No Cough, No Dyspnea Cardiac: No Chest Pain, No Edema, No Syncope Abdominal/Gastrointestinal: No Abdominal Pain, No Nausea, No Vomiting, No Diarrhea Genitourinary Symptoms: No Dysuria Musculoskeletal: Back Pain, No Neck Pain Skin: No Rash Neurological: No Dizziness, No Focal Weakness, No Sensory Changes Psychological: No Symptoms Endocrine: No Symptoms All Other Systems: Reviewed and Negative - Past Medical History Pertinent Past Medical History: Yes Neurological History: Peripheral Neuropathy, TIA ENT History: No Pertinent History Cardiac History: Aneurysm, Coronary Artery Disease, High Cholesterol, Hypertension, Myocardial Infarction ([place]) Respiratory History: COPD, Emphysema, Pneumonia, Sleep Apnea, Other Endocrine Medical History: Hypothyroidism Musculoskeletal History: Degenerative Disk Disease GI Medical History: Hernia History: Other Psycho-Social History: Anxiety Male Reproductive Disorders: No Pertinent History Other Medical History: CHRONIC BACK PAIN, carotid artery disease. KIDNEY STONES - Past Surgical History Past Surgical History: Yes Neuro Surgical History: No Pertinent History Cardiac: Cardiac Catheterization, Cardiac Stent Respiratory: Other Gastrointestinal: No Pertinent History Genitourinary: No Pertinent History Musculoskeletal: Orthopedic Surgery Male Surgical History: No Pertinent History Other Surgical History: R lung cut a 1/4 inch off the top. 1988, back surgery , inspire placement, rt leg fx - Social History Smoking Status: Current every day smoker How long have you smoked: 48 years Exposure to second hand smoke: No Drug Use: none Patient Lives Alone: No - Nursing Vital Signs Nursing Vital Signs: Initial Vital Signs Temperature 96.6 F 02/12/22 23:53 Pulse Rate 83 02/12/22 23:53 Respiratory Rate 18 02/12/22 23:53 Blood Pressure 155/87 02/12/22 23:53 O2 Sat by Pulse Oximetry 97 02/12/22 23:53 Pain Scale Pain Intensity [Lower Back] 10 Pain Intensity 10 - Physical Exam General Appearance: no apparent distress, alert Eye Exam: PERRL/EOMI, eyes nml inspection Ears, Nose, Throat Exam: normal ENT inspection, TMs normal, pharynx normal, moist mucous membranes Neck Exam: normal inspection, non-tender, supple, full range of motion Respiratory Exam: normal breath sounds, lungs clear, No respiratory distress Cardiovascular Exam: regular rate/rhythm, normal heart sounds, normal peripheral pulses Gastrointestinal/Abdomen Exam: soft, normal bowel sounds, No tenderness, No mass Back Exam: normal inspection, normal range of motion, other (Left lower back tenderness. Previous well-healed midline incision. No other tenderness, overlying skin changes.), No CVA tenderness, No vertebral tenderness Extremity Exam: normal inspection, normal range of motion, pelvis stable Neurologic Exam: alert, oriented x 3, cooperative, normal mood/affect, nml cerebellar function, nml station & gait, sensation nml, other, No motor deficits Skin Exam: normal color, warm, dry, No rash Lymphatic Exam: No adenopathy SpO2: 97 - Course Nursing assessment & vital signs reviewed: Yes - Progress Progress: improved Progress Note: 02/13/22 01:17 This is an acute exacerbation of chronic back pain nontraumatic. I did offer patient lidocaine patches, steroids, Flexeril. I offered conservative management, follow-up with physical therapy and PCP, pain management. Patient declined all interventions. He states that usually he got Dilaudid which worked for him. I did have a long conversation with the patient stating that narcotic use for acute back pain with chronic features is not going to lead to better outcomes. Patient again declined lidocaine patches, steroids, Flexeril. Stated that they did not work for him. Although it has not worked for him in the past this is new and different and this is the first time I am seeing him in the ER. Therefore, I would like to try conservative management initially. Patient ultimately declined and was discharged home without further intervention. Return precautions given. - Departure Departure Disposition: Home Clinical Impression: Chronic back pain Condition: Stable Critical Care Time: No Referrals: [facility]OSP[facility],'[facility] [Primary Care Provider] - Follow up/PCP as directed Instructions: Low Back Pain (DC)
== END 2022-02-13 01:14 | disposition left against medical advice (07) ==
LOC: ED 23:46
DX: G89.29 Other chronic pain (principal); M54.50 Low back pain, unspecified; E78.5 Hyperlipidemia, unspecified; I10 Essential (primary) hypertension; Z79.899 Other long term (current) drug therapy; Z72.0 Tobacco use
CPT/HCPCS: 99281

== ENCOUNTER 2022-03-12 01:23 | Emergency (ER) | payer OTHER ==
--- NOTE | 2022-03-12 01:47 | ERPHSYRPT ---
- History of Present Illness Time Seen by Provider: 03/12/22 01:43 Historian: patient, family Exam Limitations: no limitations Patient Subjective Stated Complaint: pt reports he is scheduled for gallbladder surgery 03/29 with the [place], states that he is unable to eat without having severe pain after. pt states he has also lost a lot of weight. pt refuses to get undressed for the exam. Triage Nursing Assessment: pt is aox3, pupils perrl, afebrile, resps easy and non labored, cap refill < 3 seconds, radial pulses strong and equal, pt abdomen is tender to the mid-left quad, pt bowel sounds normoactive, pt skin pink warm dry. Physician History: pt is getting ready for GB removal at [place] in a few weeks, but ate today and is having episode; tender RUQ and no peritoneal signs. CHest clear Ht reg wihtout M. Ordered amylase, lipase, CBC, CMP, Lactate, UA, CT abd, reviewed results and discussed with pt. DIscussed risk/benefit of CT with pt and and they wish to proceed. confirmed hx independently with Timing/Duration: day(s) Activities at Onset: other (after eating) Abdominal Pain Onset Location: RUQ Pain Radiation: RUQ Severity of Pain-Max: moderate Severity of Pain-Current: moderate Modifying Factors: Improves With: eating Associated Symptoms: nausea Previous symptoms: same symptoms as today Allergies/Adverse Reactions: hydrocodone bitartrate [From Vicodin] Allergy (Verified 03/12/22 01:38) Rash Iodinated Contrast Media Allergy (Verified 03/12/22 01:38) ketorolac [From Toradol] Allergy (Verified 03/12/22 01:38) Penicillins Allergy (Verified 03/12/22 01:38) venlafaxine Allergy (Verified 03/12/22 01:38) codeine Adverse Reaction (Verified 03/12/22 01:38) codeine phosphate [From Codar D] Adverse Reaction (Verified 03/12/22 01:38) morphine Adverse Reaction (Verified 03/12/22 01:38) pseudoephedrine HCl [From Codar D] Adverse Reaction (Verified 03/12/22 01:38) Home Medications: Aspirin 81 gm Chew [Baby Aspirin 81 mg Chew] 81 mg PO DAILY 04/11/14 [History] Albuterol Sulfate [Proair Digihaler] 2 puff IH QID PRN PRN 09/11/20 [History] Atorvastatin Calcium 1 tab PO HS 09/11/20 [History] Budesonide/Formoterol Fumarate [Budesonide-Formoterol 160-4.5] 2 puffs IH BID 09/11/20 [History] Fluticasone Propionate [Flovent Diskus] 2 sprays IN DAILY 09/11/20 [History] PANTOPRAZOLE 40 mg Tablet [Protonix 40MG Tablet] 80 mg PO BID 09/11/20 [History] Ticagrelor [Brilinta] 90 mg PO BID 09/11/20 [History] Tiotropium [place] Inhaler [Spiriva 18 Mcg/Cap Inhaler] 2 puffs IH DAILY 09/11/20 [History] clonazePAM [Clonazepam] 2 mg PO UD PRN 09/11/20 [History] lisinopriL [Lisinopril] 2.5 mg PO DAILY PRN PRN 09/11/20 [History] Cholecalciferol (Vitamin D3) [Vitamin D3] 125 mcg PO DAILY 03/22/21 [History] Cyanocobalamin 500 Mcg [Vitamin B-12 500 MCG] 1,000 mcg PO DAILY 03/22/21 [History] Loratadine 10 mg [Claritin 10 mg] 10 mg PO DAILY 03/22/21 [History] Ranolazine 500 MG [Ranexa 500 MG] 500 mg PO BID 03/22/21 [History] Acetaminophen 500 mg [Tylenol Extra Strength 500 mg] 2,500 mg PO TID 03/30/21 [History] Nitroglycerin [Nitrolingual] 1 gm TL Q5MIN PRN MR X 3 PRN 03/30/21 [History] Hx Tetanus, Diphtheria Vaccination/Date Given: Yes Hx Influenza Vaccination/Date Given: Yes Hx Pneumococcal Vaccination/Date Given: Yes Immunizations Up to Date: Yes Travel Risk - International Travel Have you traveled outside of the country in past 3 weeks: No - Coronavirus Screening Are you exhibiting any of the following symptoms?: No Close contact with a COVID-19 positive Pt in past 14-21 Days: No - Vaccine Status Have you recieved a Covid-19 vaccination: Yes [employer]: Pfizer - Vaccination Dates Date of 2cond Vaccination (if applicable): unk - Review of Systems Constitutional: No Fever, No Chills Eyes: No Symptoms Ears, Nose, & Throat: No Symptoms Respiratory: No Cough, No Dyspnea Cardiac: No Chest Pain, No Edema, No Syncope Abdominal/Gastrointestinal: Abdominal Pain, Nausea, No Vomiting, No Diarrhea Genitourinary Symptoms: No Dysuria Musculoskeletal: No Back Pain, No Neck Pain Skin: No Rash Neurological: No Dizziness, No Focal Weakness, No Sensory Changes Psychological: No Symptoms Endocrine: No Symptoms Hematologic/Lymphatic: No Symptoms Immunological/Allergic: No Symptoms All Other Systems: Reviewed and Negative - Past Medical History Pertinent Past Medical History: Yes Neurological History: Peripheral Neuropathy, TIA ENT History: No Pertinent History Cardiac History: Aneurysm, Coronary Artery Disease, High Cholesterol, Hypertension, Myocardial Infarction ([place]) Respiratory History: COPD, Emphysema, Pneumonia, Sleep Apnea, Other Endocrine Medical History: Hypothyroidism Musculoskeletal History: Degenerative Disk Disease GI Medical History: Hernia History: Other Psycho-Social History: Anxiety Male Reproductive Disorders: No Pertinent History Other Medical History: CHRONIC BACK PAIN, carotid artery disease. KIDNEY STONES - Past Surgical History Past Surgical History: Yes Neuro Surgical History: No Pertinent History Cardiac: Cardiac Catheterization, Cardiac Stent Respiratory: Other Gastrointestinal: No Pertinent History Genitourinary: No Pertinent History Musculoskeletal: Orthopedic Surgery Male Surgical History: No Pertinent History Other Surgical History: R lung cut a 1/4 inch off the top. 1988, back surgery , inspire placement, rt leg fx - Social History Smoking Status: Current every day smoker How long have you smoked: 48 years Exposure to second hand smoke: No Drug Use: none Patient Lives Alone: No - Nursing Vital Signs Nursing Vital Signs: Initial Vital Signs Pulse Rate 77 03/12/22 01:29 Respiratory Rate 20 03/12/22 01:29 Blood Pressure 151/107 03/12/22 01:29 O2 Sat by Pulse Oximetry 97 03/12/22 01:29 Pain Scale Pain Intensity 0 - Physical Exam General Appearance: no apparent distress, alert Eye Exam: PERRL/EOMI, eyes nml inspection Ears, Nose, Throat Exam: normal ENT inspection, pharynx normal, moist mucous membranes Neck Exam: normal inspection, non-tender, supple, full range of motion Respiratory Exam: normal breath sounds, lungs clear, No respiratory distress Cardiovascular Exam: regular rate/rhythm, normal heart sounds Gastrointestinal/Abdomen Exam: soft, tenderness, guarding, No mass Rectal Exam: deferred Back Exam: normal inspection, normal range of motion, No CVA tenderness, No vertebral tenderness Extremity Exam: normal inspection, normal range of motion, pelvis stable Neurologic Exam: alert, oriented x 3, cooperative, normal mood/affect, nml ce rebellar function, sensation nml, No motor deficits Skin Exam: normal color, warm, dry SpO2 Interpretation: normal SpO2: 97 O2 Delivery: Room Air - Course Nursing assessment & vital signs reviewed: Yes - CT Exams Abdomen/Pelvis CT Interpretation: Tele-radiologist Report, Normal Appendix, No appendicitis, Other (3,2 nonleaking AAA no cholecystitis. ) Ordered Tests: Active Orders 24 hr Category Date Time Status IV Insertion STAT Care 03/12/22 01:49 Active ABDOMEN AND PELVIS W/0 CONTRAS [CT] Stat Exams 03/12/22 01:49 Taken AMYLASE Stat Lab 03/12/22 02:27 Completed CBC W DIFF Stat Lab 03/12/22 02:27 Completed CMP Stat Lab 03/12/22 02:27 Completed LIPASE Stat Lab 03/12/22 02:27 Completed Lactic Acid Stat Lab 03/12/22 02:18 Completed UA W/RFX UR CULTURE Stat Lab 03/12/22 02:55 Completed Medication Summary Discontinued Medications Generic Name Dose Route Start Last Admin Trade Name Freq PRN Reason Stop Dose Admin Diphenhydramine HCl 25 mg 03/12/22 01:49 03/12/22 02:33 Diphenhydramine Hcl 50 Mg/Ml Vial IV 03/12/22 01:50 25 mg STAT ONE Administration Diphenhydramine HCl Confirm 03/12/22 02:29 Diphenhydramine Hcl 50 Mg/Ml Vial Administered 03/12/22 02:30 Dose 50 mg .ROUTE .STK-MED ONE Famotidine 20 mg 03/12/22 01:49 03/12/22 02:35 Famotidine 20 Mg/1 Vial IV 03/12/22 01:50 20 mg STAT ONE Administration Famotidine Confirm 03/12/22 02:29 Famotidine 20 Mg/1 Vial Administered 03/12/22 02:30 Dose 20 mg IV .STK-MED ONE Hydromorphone HCl 1 mg 03/12/22 01:49 03/12/22 02:35 Hydromorphone 1 Mg/1ml Inj 1 Mg/Ml Syringe IV 03/12/22 01:50 1 mg STAT ONE Administration Hydromorphone HCl Confirm 03/12/22 02:29 Hydromorphone 1 Mg/1ml Inj 1 Mg/Ml Syringe Administered 03/12/22 02:30 Dose 1 mg .ROUTE .STK-MED ONE Hydromorphone HCl 2 mg 03/12/22 03:25 03/12/22 03:42 Hydromorphone 1 Mg/1ml Inj 1 Mg/Ml Syringe IV 03/12/22 03:26 2 mg STAT ONE Administration Hydromorphone HCl Confirm 03/12/22 03:41 Hydromorphone 1 Mg/1ml Inj 1 Mg/Ml Syringe Administered 03/12/22 03:42 Dose 2 mg .ROUTE .STK-MED ONE Sodium Chloride 1,000 mls @ 999 mls/hr 03/12/22 01:49 03/12/22 03:46 Sodium Chloride 0.9% 1000 Ml IV 03/12/22 02:49 Infused .Q1H1M STA Infusion Sodium Chloride Confirm 03/12/22 02:29 Sodium Chloride 0.9% 1000 Ml Administered 03/12/22 02:30 Dose 1,000 mls @ ud .ROUTE .STK-MED ONE Ondansetron HCl 4 mg 03/12/22 01:49 03/12/22 02:30 Ondansetron Hcl 4 Mg/2 Ml Vial IV 03/12/22 01:50 4 mg STAT ONE Administration Ondansetron HCl Confirm 03/12/22 02:29 Ondansetron Hcl 4 Mg/2 Ml Vial Administered 03/12/22 02:30 Dose 4 mg .ROUTE .STK-MED ONE Pantoprazole Sodium 40 mg 03/12/22 01:49 03/12/22 02:33 Pantoprazole 40 Mg Vial IV 03/12/22 01:50 40 mg STAT ONE Administration Pantoprazole Sodium Confirm 03/12/22 02:29 Pantoprazole 40 Mg Vial Administered 03/12/22 02:30 Dose 40 mg IV .STK-MED ONE Lab/Rad Data: Laboratory Result Diagrams 03/12/22 02:27 03/12/22 02:27 Laboratory Results 03/12/22 03/12/22 03/12/22 Range/Units 02:55 02:27 02:27 WBC 7.9 (4.0-10.5) x10^3/uL RBC 4.08 L (4.1-5.6) x10^6/uL Hgb 12.4 L (12.5-18.0) g/dL Hct 39.7 L (42-50) % MCV 97.3 (78-100) fL MCH 30.4 (26-32) pg MCHC 31.2 L (32-36) g/dL RDW 15.5 H (11.5-14.0) % Plt Count 175 (150-450) x10^3/uL MPV 9.3 (7.5-11.0) fL Gran % 71.0 H (36.0-66.0) % Immature Gran % (Auto) 0.3 (0.00-0.4) % Nucleat RBC Rel Count 0.0 (0.00-0.1) % Eos # (Auto) 0.08 (0-0.5) x10^3/uL Immature Gran # (Auto) 0.02 (0.00-0.03) x10^3u/L Absolute Lymphs (auto) 1.68 (1.0-4.6) x10^3/uL Absolute Monos (auto) 0.49 (0.0-1.3) x10^3/uL Absolute Nucleated RBC 0.00 (0.00-0.01) x10^3u/L Lymphocytes % 21.4 L (24.0-44.0) % Monocytes % 6.2 (0.0-12.0) % Eosinophils % 1.0 (0.00-5.0) % Basophils % 0.1 (0.0-0.4) % Absolute Granulocytes 5.58 (1.4-6.9) x10^3/uL Basophils # 0.01 (0-0.4) x10^3/uL Sodium 142 (137-145) mmol/L Potassium 4.1 (3.5-5.1) mmol/L Chloride 107 (98-107) mmol/L Carbon Dioxide 31 H (22-30) mmol/L Anion Gap 7.9 (5-15) MEQ/L BUN 18 (9-20) mg/dL Creatinine 1.29 H (0.66-1.25) mg/dL Estimated GFR > 60.0 ML/MIN Glucose 94 (74-106) mg/dL Lactic Acid (0.4-2.0) Calcium 8.8 (8.4-10.2) mg/dL Total Bilirubin 0.30 (0.2-1.3) mg/dL AST 36 (17-59) U/L ALT 14 (0-50) U/L Alkaline Phosphatase 85 (38-126) U/L Serum Total Protein 7.2 (6.3-8.2) g/dL Albumin 3.9 (3.5-5.0) g/dL Amylase 49 (30-110) U/L Lipase 80 (23-300) U/L Urine Color Dark Yellow (Yellow) Urine Appearance Clear (Clear) Urine pH 5.0 (4.6-8.0) Ur Specific Butler >=1.030 A (1.005-1.030) Urine Protein Trace A (Negative) Urine Glucose (UA) Negative (Negative) mg/dL Urine Ketones Trace A (Negative) Urine Blood Negative (Negative) Urine Nitrite Negative (Negative) Urine Bilirubin Negative (Negative) Urine Urobilinogen 1.0 A (0.2) mg/dL Ur Leukocyte Esterase Negative (Negative) U Hyaline Cast (Auto) 3-5 A (0-2) /LPF Urine Microscopic RBC 0-2 (0-5) /HPF Urine Microscopic WBC 0-2 (0-5) /HPF Ur Epithelial Cells None Seen (None Seen) /HPF Urine Bacteria None Seen (None Seen) /HPF Urine Culture Reflexed NO (NO) 03/12/22 Range/Units 02:18 WBC (4.0-10.5) x10^3/uL RBC (4.1-5.6) x10^6/uL Hgb (12.5-18.0) g/dL Hct (42-50) % MCV (78-100) fL MCH (26-32) pg MCHC (32-36) g/dL RDW (11.5-14.0) % Plt Count (150-450) x10^3/uL MPV (7.5-11.0) fL Gran % (36.0-66.0) % Immature Gran % (Auto) (0.00-0.4) % Nucleat RBC Rel Count (0.00-0.1) % Eos # (Auto) (0-0.5) x10^3/uL Immature Gran # (Auto) (0.00-0.03) x10^3u/L Absolute Lymphs (auto) (1.0-4.6) x10^3/uL Absolute Monos (auto) (0.0-1.3) x10^3/uL Absolute Nucleated RBC (0.00-0.01) x10^3u/L Lymphocytes % (24.0-44.0) % Monocytes % (0.0-12.0) % Eosinophils % (0.00-5.0) % Basophils % (0.0-0.4) % Absolute Granulocytes (1.4-6.9) x10^3/uL Basophils # (0-0.4) x10^3/uL Sodium (137-145) mmol/L Potassium (3.5-5.1) mmol/L Chloride (98-107) mmol/L Carbon Dioxide (22-30) mmol/L Anion Gap (5-15) MEQ/L BUN (9-20) mg/dL Creatinine (0.66-1.25) mg/dL Estimated GFR ML/MIN Glucose (74-106) mg/dL Lactic Acid 0.4 (0.4-2.0) Calcium (8.4-10.2) mg/dL Total Bilirubin (0.2-1.3) mg/dL AST (17-59) U/L ALT (0-50) U/L Alkaline Phosphatase (38-126) U/L Serum Total Protein (6.3-8.2) g/dL Albumin (3.5-5.0) g/dL Amylase (30-110) U/L Lipase (23-300) U/L Urine Color (Yellow) Urine Appearance (Clear) Urine pH (4.6-8.0) Ur Specific Butler (1.005-1.030) Urine Protein (Negative) Urine Glucose (UA) (Negative) mg/dL Urine Ketones (Negative) Urine Blood (Negative) Urine Nitrite (Negative) Urine Bilirubin (Negative) Urine Urobilinogen (0.2) mg/dL Ur Leukocyte Esterase (Negative) U Hyaline Cast (Auto) (0-2) /LPF Urine Microscopic RBC (0-5) /HPF Urine Microscopic WBC (0-5) /HPF Ur Epithelial Cells (None Seen) /HPF Urine Bacteria (None Seen) /HPF Urine Culture Reflexed (NO) - Progress Progress: improved, re-examined Progress Note: 03/12/22 03:26 pt did not have relief on med and may have some tolerance. 03/12/22 04:42 pain resolved/improving. Discussed CT including AAA with pt and need for f/u and pt and family understand and will see this week. Also advised them that additional pathology could be the source and evolving undetected even cardiac or vascular or other abdominal - they understand and wish outp f/u rather than furhter w/u in er and have the capacity to make thi choice. Counseled pt/family regarding: lab results, diagnosis, need for follow-up, rad results - Departure Departure Disposition: Home Clinical Impression: Right upper quadrant abdominal pain, abdominal pain with Gb dx by Hx Condition: Good Critical Care Time: No Referrals: [facility]OS[facility]ITAL,'S [Primary Care Provider] - Follow up/PCP as directed Instructions: Severe Abdominal Pain, Adult (DC), Aortic Aneurysm (DC) Additional Instructions: follow-up with your DrEbonis as planned. Although you have been previously diagnosed with gall bladder disease, there could be additional undetected conditions evolving , so return or see if symptoms recur or there are other concerns.
[2022-03-12] MEDS ORDERED: Hydromorphone 1 mg/ml Injection IV ONE ×3 (01:49→04:49)
[2022-03-12] MEDS ORDERED: Zofran 4 MG/2 ML VIAL IV ONE (01:49)
[2022-03-12] MEDS ORDERED: Pepcid 20 MG VIAL IV ONE ×2 (01:49→02:29)
[2022-03-12] MEDS ORDERED: Sodium Chloride 0.9% 1000 ML 1,000 ML IV STA (01:49)
[2022-03-12] MEDS ORDERED: BENADRYL 50 MG/ML IV ONE (01:49)
[2022-03-12] MEDS ORDERED: PROTONIX 40 MG IV IV ONE ×2 (01:49→02:29)
[2022-03-12] MEDS ORDERED: BENADRYL 50 MG/ML ONE (02:29)
[2022-03-12] MEDS ORDERED: Zofran 4 MG/2 ML VIAL ONE (02:29)
[2022-03-12] MEDS ORDERED: Hydromorphone 1 mg/ml Injection ONE ×3 (02:29→05:02)
[2022-03-12] MEDS ORDERED: Sodium Chloride 0.9% 1000 ML 1,000 ML ONE (02:29)
[2022-03-12 02:33] LABS: Absolute Neutrophil Ct (ANC) 5.58 x10^3/uL (1.4-6.9); BASOPHIL % 0.1 % (0.0-0.4); Basophil (Absolute #) 0.01 x10^3/uL (0-0.4); Eosinophil (Absolute #) 0.08 x10^3/uL (0-0.5); Hematocrit 39.7 % (42-50); Hemoglobin 12.4 g/dL (12.5-18.0); IMMATURE GRAN # 0.02 x10^3u/L (0.00-0.03); IMMATURE GRAN % 0.3 % (0.00-0.4); Lymphocyte (Absolute #) 1.68 x10^3/uL (1.0-4.6); Lymphocytes % 21.4 % (24.0-44.0); Mean Cell Volume 97.3 fL (78-100); Mean Corpuscular Hemoglobin 30.4 pg (26-32); Mean Corpuscular Hgb Concent. 31.2 g/dL (32-36); Mean Platelet Volume 9.3 fL (7.5-11.0); Monocyte (Absolute #) 0.49 x10^3/uL (0.0-1.3); Monocytes % 6.2 % (0.0-12.0); Platelet Count 175 x10^3/uL (150-450); Red Blood Count 4.08 x10^6/uL (4.1-5.6); Red Cell Distribution Width 15.5 % (11.5-14.0); White Blood Count 7.9 x10^3/uL (4.0-10.5)
[2022-03-12 02:41] LABS: ALBUMIN 3.9 g/dL (3.5-5.0); ALKALINE PHOSPHATASE 85 U/L (38-126); AMYLASE 49 U/L (30-110); ANION GAP 7.9 MEQ/L (5-15); BLOOD UREA NITROGEN 18 mg/dL (9-20); CHLORIDE 107 mmol/L (98-107); Calcium 8.8 mg/dL (8.4-10.2); Carbon Dioxide 31 mmol/L (22-30); Creatinine 1 1.29 mg/dL (0.66-1.25); EST GLOMERULAR FILTRATION RATE > 60.0 ML/MIN; Glucose 94 mg/dL (74-106); LIPASE 80 U/L (23-300); Potassium 4.1 mmol/L (3.5-5.1); SGOT/AST 36 U/L (17-59); SGPT/ALT 14 U/L (0-50); SODIUM 142 mmol/L (137-145); Total Protein 7.2 g/dL (6.3-8.2)
[2022-03-12 03:12] LABS: Appearance Clear (Clear); Bacteria None Seen /HPF (None Seen); Bilirubin Negative (Negative); Blood Negative (Negative); Epithelial Cells None Seen /HPF (None Seen); Glucose, Urine Negative (Negative); Ketones Trace (Negative); Leukocyte Esterase Negative (Negative); Nitrite Negative (Negative); Protein,Urine Dip Trace (Negative); RBC 0-2 /HPF (0-5); Specific Gravity >=1.030 (1.005-1.030); WBC 0-2 /HPF (0-5)
[2022-03-12 03:13] LABS: ADD URINE CULTURE? NO (NO)
[2022-03-12 04:18] VITALS: BP 122/77; PULSE 62
[2022-03-12 04:25] VITALS: O2SAT 97
--- NOTE | 2022-03-12 09:13 | XRAY ---
Indication: Abdomen pain. Cholecystitis. Multiple contiguous axial images obtained through the abdomen and pelvis without contrast. Comparison: February 04, 2022 Lung bases again demonstrates pulmonary emphysema with scattered fibrosis/scarring. No focal infiltrate or effusion. Heart not enlarged. Again small hiatal hernia. Stomach distended with food/fluid. Gallbladder partially contracted without gallstones or biliary distention. Noncontrasted stomach and bowel loops nonobstructed again with normal appendix. Again mild diffuse scatter colonic fecal debris throughout, more than before. Stable sigmoid diverticulosis without diverticulitis and tiny hepatic/splenic calcified granulomas. No free fluid/air. Remaining liver, gallbladder, pancreas, spleen, adrenal glands, kidneys, ureters, and bladder are unremarkable for noncontrast exam. Stable moderate scattered aortoiliac calcifications with 3.1 cm distal AAA. Osseous structures intact again with L4-L5 fusion and beam artifact from posterior fusion hardware. Impression: 1. Worsening diffuse fecal stasis. 2. Again chronic findings including pulmonary emphysema, pulmonary fibrosis/scarring, hiatal hernia, sigmoid diverticulosis, arteriosclerotic disease with distal AAA, and L4-L5 fusion. 3. Remaining CT abdomen/pelvis without contrast exam is again negative. Comment: Preliminary interpretation made by [facility]. No critical discrepancy.
== END 2022-03-12 05:26 | disposition home or self-care (01) ==
LOC: ED 01:23
DX: R10.11 Right upper quadrant pain (principal); E78.5 Hyperlipidemia, unspecified; I10 Essential (primary) hypertension; Z79.02 Long term (current) use of antithrombotics/antiplatelets; Z79.899 Other long term (current) drug therapy; Z72.0 Tobacco use
CPT/HCPCS: 36000; 36415; 74176; 80053; 81001; 82150; 83605; 83690; 85025; 96360; 96374; 96375; 96376; 99284; J1170; J1200; J2405

== ENCOUNTER 2022-03-13 06:54 | Emergency (ER) | payer OTHER ==
--- NOTE | 2022-03-13 07:35 | ERPHSYRPT ---
- History of Present Illness Historian: patient, other () Exam Limitations: other (Very poor historian) Patient Subjective Stated Complaint: chest pain that began 03/12/22, woke up this morning and fell from standing position hitting right side of head on night stand Triage Nursing Assessment: Pt ambulated to room. A&O X 3. Skin color WNL for race, warm, and dry. Respirations unlabored. Lung sound dim/clear throughout. Heart sounds s1, s2 present, regular. Denies N/V, SOB, edema. 2 cm laceration present to right confucianist. Physician History: 56 yo wm w Mid-sternal chest pain w radiation to B arms since 1500 yesterday. Pain is sharp and nothing makes better or worse. He denies dyspnea/N/V/diaphoresis. Pt took NTG spray x 5 wo relief. He has a h/o ME x5/multiple stents/HTN/hyperlipidemia/smokes <1ppd. Pt also fell and hit his head this morning and has an abrasion R forehead. Timing/Duration: yesterday (1500) Activities at Onset: rest Quality: sharpness Location: substernal Chest Pain Radiation: arm (B arms) Severity of Pain-Max: severe Severity of Pain-Current: severe Modifying Factors: Improves With: nothing Associated Symptoms: denies symptoms Prior Chest Pain/Cardiac Workup: cardiac cath Nitro Today/Relief: provided at home (NTG spray x5) Aspirin Treatment Today: no aspirin today Allergies/Adverse Reactions: hydrocodone bitartrate [From Vicodin] Allergy (Verified 03/13/22 06:57) Rash Iodinated Contrast Media Allergy (Verified 03/13/22 06:57) ketorolac [From Toradol] Allergy (Verified 03/13/22 06:57) Penicillins Allergy (Verified 03/13/22 06:57) venlafaxine Allergy (Verified 03/13/22 06:57) codeine Adverse Reaction (Verified 03/13/22 06:57) codeine phosphate [From Codar D] Adverse Reaction (Verified 03/13/22 06:57) morphine Adverse Reaction (Verified 03/13/22 06:57) pseudoephedrine HCl [From Codar D] Adverse Reaction (Verified 03/13/22 06:57) Home Medications: Aspirin 81 gm Chew [Baby Aspirin 81 mg Chew] 81 mg PO DAILY 04/11/14 [Hi story] Albuterol Sulfate [Proair Digihaler] 2 puff IH QID PRN PRN 09/11/20 [History] Atorvastatin Calcium 1 tab PO HS 09/11/20 [History] Budesonide/Formoterol Fumarate [Budesonide-Formoterol 160-4.5] 2 puffs IH BID 09/11/20 [History] Fluticasone Propionate [Flovent Diskus] 2 sprays IN DAILY 09/11/20 [History] PANTOPRAZOLE 40 mg Tablet [Protonix 40MG Tablet] 80 mg PO BID 09/11/20 [History] Ticagrelor [Brilinta] 90 mg PO BID 09/11/20 [History] Tiotropium [place] Inhaler [Spiriva 18 Mcg/Cap Inhaler] 2 puffs IH DAILY 09/11/20 [History] clonazePAM [Clonazepam] 2 mg PO UD PRN 09/11/20 [History] lisinopriL [Lisinopril] 2.5 mg PO DAILY PRN PRN 09/11/20 [History] Cholecalciferol (Vitamin D3) [Vitamin D3] 125 mcg PO DAILY 03/22/21 [History] Cyanocobalamin 500 Mcg [Vitamin B-12 500 MCG] 1,000 mcg PO DAILY 03/22/21 [History] Loratadine 10 mg [Claritin 10 mg] 10 mg PO DAILY 03/22/21 [History] Ranolazine 500 MG [Ranexa 500 MG] 500 mg PO BID 03/22/21 [History] Acetaminophen 500 mg [Tylenol Extra Strength 500 mg] 2,500 mg PO TID 03/30/21 [History] Nitroglycerin [Nitrolingual] 1 gm TL Q5MIN PRN MR X 3 PRN 03/30/21 [History] Hx Tetanus, Diphtheria Vaccination/Date Given: Yes Hx Influenza Vaccination/Date Given: Yes Hx Pneumococcal Vaccination/Date Given: Yes Immunizations Up to Date: Yes Travel Risk - International Travel Have you traveled outside of the country in past 3 weeks: No - Coronavirus Screening Close contact with a COVID-19 positive Pt in past 14-21 Days: No - Vaccine Status Have you recieved a Covid-19 vaccination: Yes Record Keeper: Pfizer - Vaccination Dates Date of 2cond Vaccination (if applicable): unknown - Review of Systems Constitutional: No Symptoms Eyes: No Symptoms Ears, Nose, & Throat: No Symptoms Respiratory: No Symptoms Cardiac: No Symptoms, Chest Pain Abdominal/Gastrointestinal: No Symptoms Genitourinary Symptoms: No Symptoms Musculoskeletal: No Symptoms Skin: No Symptoms Neurological: No Symptoms Psychological: No Symptoms Endocrine: No Symptoms Hematologic/Lymphatic: No Symptoms Immunological/Allergic: No Symptoms - Past Medical History Pertinent Past Medical History: Yes Neurological History: Peripheral Neuropathy, TIA ENT History: No Pertinent History Cardiac History: Aneurysm, Coronary Artery Disease, High Cholesterol, Hypert ension, Myocardial Infarction (ME) Respiratory History: COPD, Emphysema, Pneumonia, Sleep Apnea, Other Endocrine Medical History: Hypothyroidism Musculoskeletal History: Degenerative Disk Disease GI Medical History: Hernia History: Other Psycho-Social History: Anxiety Male Reproductive Disorders: No Pertinent History Other Medical History: CHRONIC BACK PAIN, carotid artery disease. KIDNEY STONES - Past Surgical History Past Surgical History: Yes Neuro Surgical History: No Pertinent History Cardiac: Cardiac Catheterization, Cardiac Stent Respiratory: Other Gastrointestinal: No Pertinent History Genitourinary: No Pertinent History Musculoskeletal: Orthopedic Surgery Male Surgical History: No Pertinent History Other Surgical History: R lung cut a 1/4 inch off the top. 1988, back surgery , inspire placement, rt leg fx - Social History Smoking Status: Current every day smoker How long have you smoked: 48 years Exposure to second hand smoke: No Drug Use: none Patient Lives Alone: No - Nursing Vital Signs Nursing Vital Signs: Initial Vital Signs Temperature 97.4 F 03/13/22 06:57 Pulse Rate 82 03/13/22 06:57 Respiratory Rate 18 03/13/22 06:57 Blood Pressure 148/80 03/13/22 06:57 O2 Sat by Pulse Oximetry 97 03/13/22 06:57 Pain Scale Pain Intensity 2 Hypertensive - Physical Exam General Appearance: no apparent distress Eye Exam: PERRL/EOMI Ears, Nose, Throat Exam: normal ENT inspection, TMs normal, pharynx normal, moist mucous membranes Neck Exam: normal inspection, non-tender, supple, full range of motion, No meningismus, No mass, No Brudzinski, No Kernig's, No carotid bruit Respiratory Exam: airway intact, crackles/rales (Faint rales L base, but overall clear) Cardiovascular Exam: regular rate/rhythm, murmur (2/6 SONAM), capillary refill <2 sec Gastrointestinal/Abdomen Exam: soft, normal bowel sounds Extremity Exam: normal inspection, normal range of motion, pelvis stable Neurologic Exam: alert, oriented x 3, cooperative, chemist II-XII nml as tested, normal mood/affect, sensation nml Skin Exam: normal color, warm, dry, No rash Lymphatic Exam: No adenopathy SpO2 Interpretation: normal SpO2: 97 O2 Delivery: Room Air - Course Nursing assessment & vital signs reviewed: Yes EKG Interpreted by Me: RATE (NSR/Rate 80/Inferior Q waves/Normal QT-QTc/Non-specific Twave abnormality) - Radiology Exams Chest X-ray Interpretation: Discussed w/ radiologist (Vagal nerve stimulator/Nothing acute) - CT Exams Head CT Interpretation: Discussed w/radiologist (CT head neg) Ordered Tests: Active Orders 24 hr Category Date Time Status EKG-ER Only STAT Care 03/13/22 07:28 Completed IV Insertion STAT Care 03/13/22 07:28 Completed CHEST 1 VIEW (PORTABLE) Stat Exams 03/13/22 07:28 Completed HEAD WITHOUT CONTRAST [CT] Stat Exams 03/13/22 07:29 Completed CBC W DIFF Stat Lab 03/13/22 07:39 Completed NT PRO BNP Stat Lab 03/13/22 07:39 Completed PROTIME WITH INR Stat Lab 03/13/22 07:39 Completed PTT Stat Lab 03/13/22 07:39 Completed TROPONIN Q4H Lab 03/13/22 09:37 Completed TROPONIN Stat Lab 03/13/22 07:39 Completed Medication Summary Discontinued Medications Generic Name Dose Route Start Last Admin Trade Name Freq PRN Reason Stop Dose Admin Aspirin 324 mg 03/13/22 08:28 03/13/22 08:41 Aspirin 81 Mg Tab.Chew PO 03/13/22 08:29 324 mg STAT ONE Administration Aspirin Confirm 03/13/22 08:33 Aspirin 81 Mg Tab.Chew Administered 03/13/22 08:34 Dose 324 mg .ROUTE .STK-MED ONE Fentanyl Citrate 50 mcg 03/13/22 08:30 03/13/22 08:41 Fentanyl Citrate 100 Mcg/2 Ml* Vial IV 03/13/22 08:31 50 mcg STAT ONE Administration Fentanyl Citrate Confirm 03/13/22 08:34 Fentanyl Citrate 100 Mcg/2 Ml* Vial Administered 03/13/22 08:35 Dose 100 mcg .ROUTE .STK-MED ONE Heparin Sodium (Beef Lung) 5,000 unit 03/13/22 09:47 03/13/22 10:01 Heparin 5000 Units/0.5 Ml 5,000 Unit/0.5 Ml Syr IV 03/13/22 09:48 5,000 unit STAT ONE Administration Heparin Sodium (Beef Lung) Confirm 03/13/22 09:59 Heparin 5000 Units/0.5 Ml 5,000 Unit/0.5 Ml Syr Administered 03/13/22 10:00 Dose 5,000 unit .ROUTE .STK-MED ONE Heparin Sodium (Beef Lung) 3,000 unit 03/13/22 10:02 Heparin 5000 Units/0.5 Ml 5,000 Unit/0.5 Ml Syr IV 04/12/22 10:01 PRN PRN aPTT 35 OR LESS Hydromorphone HCl 0.5 mg 03/13/22 09:33 03/13/22 09:38 Hydromorphone 1 Mg/1ml Inj 1 Mg/Ml Syringe IV 03/13/22 09:34 0.5 mg STAT ONE Administration Hydromorphone HCl Confirm 03/13/22 09:35 Hydromorphone 1 Mg/1ml Inj 1 Mg/Ml Syringe Administered 03/13/22 09:36 Dose 1 mg .ROUTE .STK-MED ONE Heparin Sodium/Dextrose Confirm 03/13/22 10:00 Heparin 25,000 Units/D5w: Use Order Set Leonila Administered 03/13/22 10:01 Dose 25,000 units in 250 mls @ ud IV .STK-MED ONE Heparin Sodium/Dextrose 25,000 units in 250 mls @ 10 mls/hr 03/13/22 10:30 03/13/22 10:16 Heparin 25,000 Units/D5w: Use Order Set Leonila IV 04/12/22 10:29 1,000 unit s/hr .Q24H KAYLYN 10 mls/hr Administration Protocol 1,000 UNITS/HR Nitroglycerin 0.4 mg 03/13/22 09:11 03/13/22 09:12 Nitroglycerin 0.4 Mg Tablet Bottle SL 03/13/22 09:12 0.4 mg STAT ONE Administration Nitroglycerin Confirm 03/13/22 09:13 Nitroglycerin 0.4 Mg (Ed) 0.4 Mg Tab.Subl Administered 03/13/22 09:14 Dose 0.4 mg SL .STK-MED ONE Nitroglycerin 1 gm 03/13/22 10:03 03/13/22 10:28 Nitroglycerin 1 Gm Packet TOP 03/13/22 10:04 1 gm STAT ONE Administration Nitroglycerin Confirm 03/13/22 10:25 Nitroglycerin 1 Gm Packet Administered 03/13/22 10:26 Dose 1 gm .ROUTE .STK-MED ONE Ondansetron HCl 4 mg 03/13/22 08:31 03/13/22 08:41 Ondansetron Hcl 4 Mg/2 Ml Vial IV 03/13/22 08:32 4 mg STAT ONE Administration Ondansetron HCl Confirm 03/13/22 08:33 Ondansetron Hcl 4 Mg/2 Ml Vial Administered 03/13/22 08:34 Dose 4 mg .ROUTE .STK-MED ONE Lab/Rad Data: Laboratory Result Diagrams 03/13/22 07:39 03/13/22 07:39 Laboratory Results 03/13/22 03/13/22 03/13/22 Range/Units 09:37 07:39 07:39 WBC (4.0-10.5) x10^3/uL RBC (4.1-5.6) x10^6/uL Hgb (12.5-18.0) g/dL Hct (42-50) % MCV (78-100) fL MCH (26-32) pg MCHC (32-36) g/dL RDW (11.5-14.0) % Plt Count (150-450) x10^3/uL MPV (7.5-11.0) fL Gran % (36.0-66.0) % Immature Gran % (Auto) (0.00-0.4) % Nucleat RBC Rel Count (0.00-0.1) % Eos # (Auto) (0-0.5) x10^3/uL Immature Gran # (Auto) (0.00-0.03) x10^3u/L Absolute Lymphs (auto) (1.0-4.6) x10^3/uL Absolute Monos (auto) (0.0-1.3) x10^3/uL Absolute Nucleated RBC (0.00-0.01) x10^3u/L Lymphocytes % (24.0-44.0) % Monocytes % (0.0-12.0) % Eosinophils % (0.00-5.0) % Basophils % (0.0-0.4) % Absolute Granulocytes (1.4-6.9) x10^3/uL Basophils # (0-0.4) x10^3/uL PT 12.5 (9.4-12.5) SECONDS INR 1.20 (0.8-3.0) APTT 29.4 (25.1-36.5) SECONDS Sodium Direct (138-146) mmol/L Potassium (3.5-4.9) mmol/L Chloride (98-109) mmol/L Carbon Dioxide (24-29) mmol/L Venous BUN (8-26) mg/dL Creatinine (0.6-1.3) mg/dL Glucose (70-105) mg/dL Ionized Calcium (1.12-1.32) mmol/L Troponin 3.45 H (0.00-0.03) ng/mL Troponin I 3.560 H* 3.950 H* (0.000-0.034) ng/mL NT-Pro-B Natriuret Pep (0-900) pg/mL 03/13/22 03/13/22 Range/Units 07:39 07:39 WBC 8.7 (4.0-10.5) x10^3/uL RBC 3.81 L (4.1-5.6) x10^6/uL Hgb 11.4 L (12.5-18.0) g/dL Hct 37.4 L (42-50) % MCV 98.2 (78-100) fL MCH 29.9 (26-32) pg MCHC 30.5 L (32-36) g/dL RDW 15.8 H (11.5-14.0) % Plt Count 150 (150-450) x10^3/uL MPV 9.2 (7.5-11.0) fL Gran % 73.0 H (36.0-66.0) % Immature Gran % (Auto) 0.5 H (0.00-0.4) % Nucleat RBC Rel Count 0.0 (0.00-0.1) % Eos # (Auto) 0 (0-0.5) x10^3/uL Immature Gran # (Auto) 0.04 H (0.00-0.03) x10^3u/L Absolute Lymphs (auto) 1.77 (1.0-4.6) x10^3/uL Absolute Monos (auto) 0.51 (0.0-1.3) x10^3/uL Absolute Nucleated RBC 0.00 (0.00-0.01) x10^3u/L Lymphocytes % 20.4 L (24.0-44.0) % Monocytes % 5.9 (0.0-12.0) % Eosinophils % 0.0 (0.00-5.0) % Basophils % 0.2 (0.0-0.4) % Absolute Granulocytes 6.34 (1.4-6.9) x10^3/uL Basophils # 0.02 (0-0.4) x10^3/uL PT (9.4-12.5) SECONDS INR (0.8-3.0) APTT (25.1-36.5) SECONDS Sodium Direct 141 (138-146) mmol/L Potassium 4.0 (3.5-4.9) mmol/L Chloride 102 (98-109) mmol/L Carbon Dioxide 28 (24-29) mmol/L Venous BUN 24 (8-26) mg/dL Creatinine 1.4 H (0.6-1.3) mg/dL Glucose 131 H (70-105) mg/dL Ionized Calcium 1.16 (1.12-1.32) mmol/L Troponin (0.00-0.03) ng/mL Troponin I (0.000-0.034) ng/mL NT-Pro-B Natriuret Pep 2890 H (0-900) pg/mL - Progress Progress: improved Progress Note: 03/13/22 09:19 [facility] not accepting pt's [place] to call back 50mcg IV Fentanyl/4mg IV Zofran wo improvement in pain 1SL NTG wo improvement in pain 0.5mg IV Dilaudid Spoke w Dr. Louis at [facility] 2nd Istat Troponin Regular Troponin elevated Pt accepted at [facility] by Dr. Maynard, Cardiology [facility] to 03/13/22 10:04 03/13/22 10:10 Pain improved w 0.5mg IV Dilaudid Nursing note and vital signs reviewed All lab and XR results reviewed and shared w pt Pt is a full code Heparin bolus and drip per protocol Pt stable when EMS assumed care of pt 324 ASA po given after head CT neg 03/13/22 19:58 03/13/22 20:02 Counseled pt/family regarding: lab results, diagnosis, need for follow-up, rad results - Departure Departure Disposition: Transfer Clinical Impression: NSTEMI (non-ST elevated myocardial infarction), Minor head injury Condition: Stable Critical Care Time: Yes Critical Care Time(excluding separately billable procedures): Critical 30-74 mins Referrals: HOSPITAL,'S [Primary Care Provider] - Follow up/PCP as directed
[2022-03-13 07:40] LABS: Absolute Neutrophil Ct (ANC) 6.34 x10^3/uL (1.4-6.9); BASOPHIL % 0.2 % (0.0-0.4); Basophil (Absolute #) 0.02 x10^3/uL (0-0.4); Eosinophil (Absolute #) 0 x10^3/uL (0-0.5); Hematocrit 37.4 % (42-50); Hemoglobin 11.4 g/dL (12.5-18.0); IMMATURE GRAN # 0.04 x10^3u/L (0.00-0.03); IMMATURE GRAN % 0.5 % (0.00-0.4); Lymphocyte (Absolute #) 1.77 x10^3/uL (1.0-4.6); Lymphocytes % 20.4 % (24.0-44.0); Mean Cell Volume 98.2 fL (78-100); Mean Corpuscular Hemoglobin 29.9 pg (26-32); Mean Corpuscular Hgb Concent. 30.5 g/dL (32-36); Mean Platelet Volume 9.2 fL (7.5-11.0); Monocyte (Absolute #) 0.51 x10^3/uL (0.0-1.3); Monocytes % 5.9 % (0.0-12.0); Platelet Count 150 x10^3/uL (150-450); Red Blood Count 3.81 x10^6/uL (4.1-5.6); Red Cell Distribution Width 15.8 % (11.5-14.0); White Blood Count 8.7 x10^3/uL (4.0-10.5)
[2022-03-13 08:10] LABS: INR 1.2 (0.8-3.0); PROTIME 12.5 SECONDS (9.4-12.5); PTT 29.4 SECONDS (25.1-36.5)
[2022-03-13 08:20] LABS: ISTAT cTNI 3.45 ng/mL (0.00-0.03)
[2022-03-13] MEDS ORDERED: BABY ASPIRIN 81 MG CHEW PO ONE (08:28)
[2022-03-13] MEDS ORDERED: SUBLIMAZE 100 MCG/2 ML IV ONE (08:30)
[2022-03-13] MEDS ORDERED: Zofran 4 MG/2 ML VIAL IV ONE (08:31)
[2022-03-13] MEDS ORDERED: BABY ASPIRIN 81 MG CHEW ONE (08:33)
[2022-03-13] MEDS ORDERED: Zofran 4 MG/2 ML VIAL ONE (08:33)
[2022-03-13] MEDS ORDERED: SUBLIMAZE 100 MCG/2 ML ONE (08:34)
--- NOTE | 2022-03-13 08:35 | XRAY ---
Indication: Right temporal laceration following fall. Multiple contiguous axial images obtained through the head without contrast. Comparison: April 15, 2021 Normal appearing brain parenchyma, ventricles, and bony calvarium for patient's age. Visualized paranasal sinuses and mastoid air cells are clear. Impression: Continued normal CT head without contrast exam.
--- NOTE | 2022-03-13 08:43 | XRAY ---
Indication: Chest pain. Comparison: October 02, 2021 Portable chest demonstrates new right midlung subsegmental atelectasis/scarring. Stable right apical suture material and right chest wall vagal nerve stimulator with lead. No focal infiltrate, consolidation, or large effusion. Heart not enlarged. Bony thorax intact again with osteopenia and mild degenerative changes. Impression: Continued nonacute chest with chronic features.
[2022-03-13 08:45] LABS: ISTAT CREA 1.4 mg/dL (0.6-1.3); ISTAT iCA 1.16 mmol/L (1.12-1.32)
[2022-03-13] MEDS ORDERED: Nitrostat 0.4 MG Tablet SL ONE (09:11)
[2022-03-13] MEDS ORDERED: Nitrostat 0.4 MG (ED) SL ONE (09:13)
[2022-03-13] MEDS ORDERED: Hydromorphone 1 mg/ml Injection IV ONE (09:33)
[2022-03-13] MEDS ORDERED: Hydromorphone 1 mg/ml Injection ONE (09:35)
[2022-03-13 09:45] LABS: TROPONIN 3.95 ng/mL (0.000-0.034)
[2022-03-13] MEDS ORDERED: HEPARIN 5000 UNITS/0.5 ML (HIGH RISK MED) IV ONE (09:47)
[2022-03-13] MEDS ORDERED: HEPARIN 5000 UNITS/0.5 ML (HIGH RISK MED) ONE (09:59)
[2022-03-13] MEDS ORDERED: Heparin 25,000 units/D5W: USE ORDER SET PROTO 25,000 UNITS/250 ML BAG IV ONE (10:00)
[2022-03-13] MEDS ORDERED: HEPARIN 5000 UNITS/0.5 ML (HIGH RISK MED) IV PRN (10:02)
[2022-03-13] MEDS ORDERED: NITRO-BID 2% UD PACKETS TOP ONE (10:03)
[2022-03-13] MEDS ORDERED: NITRO-BID 2% UD PACKETS ONE (10:25)
[2022-03-13] MEDS ORDERED: Heparin 25,000 units/D5W: USE ORDER SET PROTO 25,000 UNITS/250 ML BAG IV SCH (10:30)
[2022-03-13 11:26] VITALS: BP 117/78; PULSE 78
[2022-03-13 20:04] VITALS: O2SAT 97
== END 2022-03-13 11:26 | disposition short-term general hospital (02) ==
LOC: ED 06:54
DX: I21.4 Non-ST elevation (NSTEMI) myocardial infarction (principal); S09.90XA Unspecified injury of head, initial encounter; W01.190A Fall on same level from slipping, tripping and stumbling with subsequent striking against furniture, initial encounter; R07.9 Chest pain, unspecified; I10 Essential (primary) hypertension; E78.5 Hyperlipidemia, unspecified; Z79.02 Long term (current) use of antithrombotics/antiplatelets; Z79.899 Other long term (current) drug therapy; Z72.0 Tobacco use
CPT/HCPCS: 36000; 36415; 70450; 71045; 80047; 83880; 84484; 85025; 85610; 85730; 93005; 96365; 96374; 96375; 99285; 99291; J1170; J1644; J2405; J3010; A9270-GY

== ENCOUNTER 2022-04-01 21:48 | Emergency (ER) | payer OTHER ==
[2022-04-01] MEDS ORDERED: Zofran 4 MG/2 ML VIAL IV ONE (21:59)
[2022-04-01] MEDS ORDERED: MORPHINE SULFATE 4 MG INJ IV ONE (21:59)
[2022-04-01] MEDS ORDERED: Sodium Chloride 0.9% 1000 ML 1,000 ML IV SCH (22:00)
[2022-04-01 22:03] VITALS: O2SAT 97
--- NOTE | 2022-04-01 22:04 | ERPHSYRPT ---
- History of Present Illness Time Seen by Provider: 04/01/22 22:02 Historian: patient Exam Limitations: no limitations Patient Subjective Stated Complaint: mild chest pain to the center of my chest Triage Nursing Assessment: pt ambulated into ER without diff, pt alert and oriented x4, cooperative. Pt c/o "mild chest pains" to the center of his chest and sometimes it goes to his back. Pt denies any nausea or vomiting. Pain occured around 6pm tonight. Pt took Tylenol 2500mg at 4 sprays of ntg spray at home. Physician History: Pt c/o "mild chest pains" to the center of his chest and sometimes it goes to his back. Pt denies any nausea or vomiting. Pain occured around 6pm tonight. Pt took Tylenol 2500mg at 4 sprays of ntg spray at home. Timing/Duration: today Activities at Onset: none Quality: pressure, tightness Location: substernal Chest Pain Radiation: back Severity of Pain-Max: moderate Severity of Pain-Current: moderate Modifying Factors: Improves With: nothing Associated Symptoms: dizziness, other (had fall yesterday after having chest pain) Prior Chest Pain/Cardiac Workup: heart attack Nitro Today/Relief: 0.4 mg x 4 Aspirin Treatment Today: no aspirin today Body Map: 1 - chest pain Allergies/Adverse Reactions: hydrocodone bitartrate [From Vicodin] Allergy (Verified 04/01/22 22:05) Rash Iodinated Contrast Media Allergy (Verified 04/01/22 22:05) ketorolac [From Toradol] Allergy (Verified 04/01/22 22:05) Penicillins Allergy (Verified 04/01/22 22:05) venlafaxine Allergy (Verified 04/01/22 22:05) codeine Adverse Reaction (Verified 04/01/22 22:05) codeine phosphate [From Codar D] Adverse Reaction (Verified 04/01/22 22:05) morphine Adverse Reaction (Verified 04/01/22 22:05) pseudoephedrine HCl [From Codar D] Adverse Reaction (Verified 04/01/22 22:05) Home Medications: Aspirin 81 gm Chew [Baby Aspirin 81 mg Chew] 81 mg PO DAILY 04/11/14 [History] Albuterol Sulfate [Proair Digihaler] 2 puff IH QID PRN PRN 09/11/20 [History] Atorvastatin Calcium 1 tab PO HS 09/11/20 [History] Budesonide/Formoterol Fumarate [Budesonide-Formoterol 160-4.5] 2 puffs IH BID 09/11/20 [History] Fluticasone Propionate [Flovent Diskus] 2 sprays IN DAILY 09/11/20 [History] PANTOPRAZOLE 40 mg Tablet [Protonix 40MG Tablet] 80 mg PO BID 09/11/20 [History] Ticagrelor [Brilinta] 90 mg PO BID 09/11/20 [History] Tiotropium Emerson Inhaler [Spiriva 18 Mcg/Cap Inhaler] 2 puffs IH DAILY 09/11/20 [History] clonazePAM [Clonazepam] 2 mg PO UD PRN 09/11/20 [History] lisinopriL [Lisinopril] 2.5 mg PO BID 09/11/20 [History] Cholecalciferol (Vitamin D3) [Vitamin D3] 125 mcg PO DAILY 03/22/21 [History] Cyanocobalamin 500 Mcg [Vitamin B-12 500 MCG] 1,000 mcg PO DAILY 03/22/21 [History] Ranolazine 500 MG [Ranexa 500 MG] 500 mg PO BID 03/22/21 [History] Acetaminophen 500 mg [Tylenol Extra Strength 500 mg] 2,500 mg PO TID 03/30/21 [History] Nitroglycerin [Nitrolingual] 1 gm TL Q5MIN PRN MR X 3 PRN 03/30/21 [History] Hx Tetanus, Diphtheria Vaccination/Date Given: Yes Hx Influenza Vaccination/Date Given: No Hx Pneumococcal Vaccination/Date Given: No Travel Risk - International Travel Have you traveled outside of the country in past 3 weeks: No - Coronavirus Screening Are you exhibiting any of the following symptoms?: No Close contact with a COVID-19 positive Pt in past 14-21 Days: No - Vaccine Status Have you recieved a Covid-19 vaccination: Yes [employer]: [employer] - Payments Anytime | Anywhere - Vaccination Dates Date of 2cond Vaccination (if applicable): . - Review of Systems Constitutional: No Fever, No Chills Eyes: No Symptoms Ears, Nose, & Throat: No Symptoms Respiratory: No Cough, No Dyspnea Cardiac: Chest Pain, No Edema, No Syncope Abdominal/Gastrointestinal: No Abdominal Pain, No Nausea, No Vomiting, No Diarrhea Genitourinary Symptoms: No Dysuria Musculoskeletal: No Back Pain, No Neck Pain Skin: No Rash Neurological: No Dizziness, No Focal Weakness, No Sensory Changes Psychological: No Symptoms Endocrine: No Symptoms All Other Systems: Reviewed and Negative - Past Medical History Pertinent Past Medical History: Yes Neurological History: Peripheral Neuropathy, TIA ENT History: No Pertinent History Cardiac History: Aneurysm, Coronary Artery Disease, High Cholesterol, Hypertension, Myocardial Infarction (MA) Respiratory History: Asthma, COPD, Emphysema, Pneumonia, Sleep Apnea, Other Endocrine Medical History: Hypothyroidism Musculoskeletal History: Degenerative Disk Disease GI Medical History: Gallbladder Disease, Hernia History: Other Psycho-Social History: Anxiety Male Reproductive Disorders: No Pertinent History Other Medical History: CHRONIC BACK PAIN, carotid artery disease. KIDNEY STONES - Past Surgical History Past Surgical History: Yes Neuro Surgical History: No Pertinent History Cardiac: Cardiac Catheterization, Cardiac Stent Respiratory: Other Gastrointestinal: No Pertinent History Genitourinary: No Pertinent History Musculoskeletal: Orthopedic Surgery Male Surgical History: No Pertinent History Other Surgical History: R lung cut a 1/4 inch off the top. 1988, back surgery , inspire placement, rt leg fx - Social History Smoking Status: Current every day smoker How long have you smoked: 48 yrs Exposure to second hand smoke: No Drug Use: none Patient Lives Alone: No - Nursing Vital Signs Nursing Vital Signs: Initial Vital Signs Pulse Rate 74 04/01/22 21:50 Pain Scale Pain Intensity 4 - Physical Exam General Appearance: no apparent distress, alert Eye Exam: PERRL/EOMI, eyes nml inspection Ears, Nose, Throat Exam: normal ENT inspection, moist mucous membranes Neck Exam: normal inspection, non-tender, supple, full range of motion Respiratory Exam: normal breath sounds, lungs clear, No respiratory distress Cardiovascular Exam: regular rate/rhythm, normal heart sounds Gastrointestinal/Abdomen Exam: soft, No tenderness, No mass Back Exam: normal inspection, No CVA tenderness, No vertebral tenderness Extremity Exam: normal inspection, normal range of motion Neurologic Exam: alert, oriented x 3, cooperative, normal mood/affect, sensation nml, No motor deficits Skin Exam: normal color, warm, dry - Course Nursing assessment & vital signs reviewed: Yes EKG Interpreted by Me: Sinus Rhythm - Radiology Exams Chest X-ray Interpretation: Reviewed by me, Negative (pulmonary fibrosis) Ordered Tests: Active Orders 24 hr Category Date Time Status Airworthiness Inspector STAT Care 04/01/22 22:00 Active EKG-ER Only STAT Care 04/01/22 21:59 Active IV Insertion STAT Care 04/01/22 21:59 Active Oxygen-ED Only Nasal Cannula 2 lpm Care 04/01/22 21:59 Active CHEST 1 VIEW (PORTABLE) Stat Exams 04/01/22 22:00 Taken CBC W DIFF Stat Lab 04/01/22 22:08 Completed CMP Stat Lab 04/01/22 22:08 Completed D-DIMER QUANTITATIVE Stat Lab 04/01/22 22:08 Completed NT PRO BNPII Stat Lab 04/01/22 22:08 Received TROPONIN Q4H Lab 04/01/22 22:08 Received TROPONIN Q4H Lab 04/02/22 02:00 Ordered TROPONIN Q4H Lab 04/02/22 06:00 Ordered Urine Triage Profile Stat Lab 04/01/22 22:00 Ordered Medication Summary Generic Name Dose Route Start Last Admin Trade Name Freq PRN Reason Stop Dose Admin Sodium Chloride 1,000 mls @ 100 mls/hr 04/01/22 22:00 Sodium Chloride 0.9% 1000 Ml IV 05/01/22 21:59 .Q10H KAYLYN Discontinued Medications Generic Name Dose Route Start Last Admin Trade Name Freq PRN Reason Stop Dose Admin Morphine Sulfate 4 mg 04/01/22 21:59 Morphine Sulfate 4 Mg/Ml Injection IV 04/01/22 22:00 STAT ONE Ondansetron HCl 4 mg 04/01/22 21:59 Ondansetron Hcl 4 Mg/2 Ml Vial IV 04/01/22 22:00 STAT ONE Lab/Rad Data: Laboratory Result Diagrams 04/01/22 22:08 04/01/22 22:08 Laboratory Results 04/01/22 04/01/22 04/01/22 Range/Units 22:08 22:08 22:08 WBC 4.5 (4.0-10.5) x10^3/uL RBC 3.98 L (4.1-5.6) x10^6/uL Hgb 12.1 L (12.5-18.0) g/dL Hct 38.3 L (42-50) % MCV 96.2 (78-100) fL MCH 30.4 (26-32) pg MCHC 31.6 L (32-36) g/dL RDW 14.9 H (11.5-14.0) % Plt Count 162 (150-450) x10^3/uL MPV 9.2 (7.5-11.0) fL Gran % 57.8 (36.0-66.0) % Immature Gran % (Auto) 0.4 (0.00-0.4) % Nucleat RBC Rel Count 0.0 (0.00-0.1) % Eos # (Auto) 0.05 (0-0.5) x10^3/uL Immature Gran # (Auto) 0.02 (0.00-0.03) x10^3u/L Absolute Lymphs (auto) 1.49 (1.0-4.6) x10^3/uL Absolute Monos (auto) 0.30 (0.0-1.3) x10^3/uL Absolute Nucleated RBC 0.00 (0.00-0.01) x10^3u/L Lymphocytes % 33.3 (24.0-44.0) % Monocytes % 6.7 (0.0-12.0) % Eosinophils % 1.1 (0.00-5.0) % Basophils % 0.7 (0.0-0.4) % Absolute Granulocytes 2.59 (1.4-6.9) x10^3/uL Basophils # 0.03 (0-0.4) x10^3/uL D-Dimer < 0.19 (0.0-0.50) mg/L Sodium 142 (137-145) mmol/L Potassium 3.4 L (3.5-5.1) mmol/L Chloride 105 (98-107) mmol/L Carbon Dioxide 32 H (22-30) mmol/L Anion Gap 9.0 (5-15) MEQ/L BUN 13 (9-20) mg/dL Creatinine 1.33 H (0.66-1.25) mg/dL Estimated GFR 58.9 ML/MIN Glucose 136 H (74-106) mg/dL Calcium 8.7 (8.4-10.2) mg/dL Total Bilirubin 0.40 (0.2-1.3) mg/dL AST 16 L (17-59) U/L ALT 12 (0-50) U/L Alkaline Phosphatase 88 (38-126) U/L Serum Total Protein 6.8 (6.3-8.2) g/dL Albumin 3.6 (3.5-5.0) g/dL - Progress Progress: improved Air Movement: good Blood Culture(s) Obtained: No Antibiotics given: No Counseled pt/family regarding: lab results, diagnosis, need for follow-up, rad results Medical Desision Making - Discussion of managment Reviewed:: Test results Agreed on:: Treatment plan, need for follow-up - Diagnostic Testing Diagnostic test were ordered, analyzed, and reviewed by me: Yes Radiological Interpretation: Reviewed by me - Risk of complications Low Risk: Low risk of morbidity from additional dx testing or treatment - Departure Departure Disposition: Home Clinical Impression: Chest pain Qualifiers: Chest pain type: other chest pain Qualified Code(s): R07.89 - Other chest pain; R07.8 - Other chest pain Condition: Stable Critical Care Time: No Referrals: [facility],'[facility] [Primary Care Provider] - Follow up/PCP as directed Instructions: Chest Pain (DC) Additional Instructions: Discharge/Care Plan NIDIA KENT JR was seen on 04/01/22 in the Emergency Room. The patient was counseled regarding Diagnosis,Lab results, Imaging studies, need for follow up and when to return to the Emergency Room. Prescriptions given: Discharge Note I have spoken with the patient and/or caregivers. I have explained the patient's condition, diagnosis and treatment plan based on the information available to me at this time. I have answered the patient's and/or caregiver's questions and addressed any concerns. The patient and/or caregivers have as good understanding of the patient's diagnosis, condition and treatment plan as can be expected at this point. The vital signs have been stable. The patient's condition is stable and appropriate for discharge from the emergency department. The patient will pursue further outpatient evaluation with the primary care physician or other designated or consulting physician as outlined in the discharge instructions. The patient and/or caregivers are agreeable to this plan of care and follow-up instructions have been explained in detail. The patient and/or caregivers have received these instruction. The patient/and or caregivers are aware that any significant change in condition or worsening of symptoms should prompt an immediate return to this or the closest emergency department or call 911. DONTE ROBLESNIDIA TRINH was seen on 04/01/22 n the Emergency Room. At that time you were treated for an emergent condition, during your visit Laboratory, Radiology and/or other procedures may have been ordered. It is very important that you follow-up with your Primary Care Physician [facility] within the next 24-48 hours to review your Emergency Room visit and the final results of testing that was ordered. Some test results such as Urine Cultures, Blood Cultures, and other cultures if ordered will not be finalized for 24-48 hours. If you do not have a Primary Care Provider please call the medical records department at [phone] to obtain a copy of your results or you may sign into our patient portal to obtain these results by visiting us @ [email or web address] and completing the following steps: 1. Click on the Patient Portal link 2. Click the Patient Self Enrollment Link to complete the enrollment form and entering your 3. Once the enrollment form is completed you will receive an email with a temporary ID and password at the email address you provided. 4. Next choose a user name and password. Your user name must be at least 4 characters long and your password must be at least 4 characters long. 5. Choose a security question from the list and provide your answer to the question. If you already have signed into the Health Portal you may access your Health Care Information 04/09 by the following steps: 1. Login to our website @ [email or web address] 2. Enter your original user name and password. FAQS The [facility] Health Portal is an online tool that contains your Lab Results, Radiology Reports, Visit History, Discharge Instructions and Health Summary Lab and Radiology Results will not be available for 72 hours on the portal. The Portal is a secure site, passwords are encryted and URLs are re-written so they cannot be copied and pasted. You and authorized family members are the only ones who can access your Portal. Also there is a timeout feature that protects your information if you leave the Portal page open. If you have technical difficulty please use the Contact Us link on the page this will allow you to submit any questions you have regarding the Portal or you may contact the Medical Record Department at [phone] ext [phone].
[2022-04-01 22:11] LABS: Absolute Neutrophil Ct (ANC) 2.59 x10^3/uL (1.4-6.9); BASOPHIL % 0.7 % (0.0-0.4); Basophil (Absolute #) 0.03 x10^3/uL (0-0.4); Eosinophil % 1.1 % (0.00-5.0); Eosinophil (Absolute #) 0.05 x10^3/uL (0-0.5); Hematocrit 38.3 % (42-50); Hemoglobin 12.1 g/dL (12.5-18.0); IMMATURE GRAN # 0.02 x10^3u/L (0.00-0.03); IMMATURE GRAN % 0.4 % (0.00-0.4); Lymphocyte (Absolute #) 1.49 x10^3/uL (1.0-4.6); Lymphocytes % 33.3 % (24.0-44.0); Mean Cell Volume 96.2 fL (78-100); Mean Corpuscular Hemoglobin 30.4 pg (26-32); Mean Corpuscular Hgb Concent. 31.6 g/dL (32-36); Mean Platelet Volume 9.2 fL (7.5-11.0); Monocytes % 6.7 % (0.0-12.0); Neutrophil % 57.8 % (36.0-66.0); Platelet Count 162 x10^3/uL (150-450); Red Blood Count 3.98 x10^6/uL (4.1-5.6); Red Cell Distribution Width 14.9 % (11.5-14.0); White Blood Count 4.5 x10^3/uL (4.0-10.5)
[2022-04-01 22:26] LABS: ALBUMIN 3.6 g/dL (3.5-5.0); BILIRUBIN,TOTAL 0.4 mg/dL (0.2-1.3); Calcium 8.7 mg/dL (8.4-10.2); Creatinine 1 1.33 mg/dL (0.66-1.25); EST GLOMERULAR FILTRATION RATE 58.9 ML/MIN; Potassium 3.4 mmol/L (3.5-5.1); Total Protein 6.8 g/dL (6.3-8.2)
[2022-04-01 22:36] LABS: NT PRO BNPII 406 pg/mL (<300); TROPONIN < 0.012 ng/mL (0.000-0.034)
[2022-04-01] MEDS ORDERED: Zofran 4 MG/2 ML VIAL ONE (22:41)
[2022-04-01] MEDS ORDERED: Sodium Chloride 0.9% 1000 ML 0 ML ONE (22:41)
[2022-04-01 23:00] VITALS: BP 118/67; PULSE 67
--- NOTE | 2022-04-02 08:46 | XRAY ---
Indication: Chest pain. Comparison: March 13, 2022 Portable chest unchanged again hyperinflated with right apical suture material, right midlung subsegmental atelectasis/scarring, and right vagal nerve stimulator with lead. Heart not enlarged. Bony thorax intact again with osteopenia mild degenerative changes. No new/acute findings.
== END 2022-04-01 23:00 | disposition home or self-care (01) ==
LOC: ED 21:48
DX: R07.89 Other chest pain (principal); E78.5 Hyperlipidemia, unspecified; I10 Essential (primary) hypertension; Z79.899 Other long term (current) drug therapy; Z72.0 Tobacco use
CPT/HCPCS: 36000; 36415; 71045; 80053; 83880; 84484; 85025; 85379; 93005; 93041; 96374; 99284; J2405

== ENCOUNTER 2022-04-12 00:40 | Emergency (ER) | payer OTHER ==
[2022-04-12] MEDS ORDERED: PERCOCET TABLET 5/325MG PO STA (01:03)
[2022-04-12] MEDS ORDERED: PERCOCET TABLET 5/325MG ONE (01:10)
--- NOTE | 2022-04-12 01:10 | ERPHSYRPT ---
- History of Present Illness Time Seen by Provider: 04/12/22 00:55 Source: patient Exam Limitations: no limitations Patient Subjective Stated Complaint: testicle pain since last Sun Nursing Assessment: Pt ambulated into ER, at bedside. Pt c/o testicle pain since last 04/05/22. Pt had cardiac cath on Sunday05/01/22. Pt refused to put a gown on, states, "I know how to pull my pants down when the dr gets in here". Pt denies any issues with urination. Physician History: This a 56-year-old white male patient who is a [facility] patient and presents to the emergency department for his seventh visit in the last 3 months for pain issues that is typically back, chest or abdominal pain. 3 other visits he has been seen by his outpatient pain clinic doctor Dr. Michael. Patient states that 8 days ago he underwent a right inguinal cardiac catheterization. He was seen by his primary care physician as an outpatient 3 days ago because of bilateral testicular pain. His primary care physician told him to go to the emergency room to be evaluated but he did not want to do that but he came this morning. Patient has not had any dysuria and has not noticed any hematuria. Patient has a history of coronary artery disease, hyperlipidemia, hypertension, TIAs, peripheral neuropathy, COPD, hypothyroidism. He is here today because of persistent bilateral testicular pain. Patient is on Brilinta Activites at Onset: none Quality: aching Onset Location: right testicle, left testicle Severity of Pain-Max: moderate Severity of Pain-Current: mild (To moderate) Modifying Factors: Improves With: nothing Associated Symptoms: denies symptoms Sexual intercourse history: non-contributory Allergies/Adverse Reactions: hydrocodone bitartrate [From Vicodin] Allergy (Verified 04/12/22 00:55) Rash Iodinated Contrast Media Allergy (Verified 04/12/22 00:55) ketorolac [From Toradol] Allergy (Verified 04/12/22 00:55) Penicillins Allergy (Verified 04/12/22 00:55) venlafaxine Allergy (Verified 04/12/22 00:55) codeine Adverse Reaction (Verified 04/12/22 00:55) codeine phosphate [From Codar D] Adverse Reaction (Verified 04/12/22 00:55) morphine Adverse Reaction (Verified 04/12/22 00:55) pseudoephedrine HCl [From [email or web address]] Adverse Reaction (Verified 04/12/22 00:55) Home Medications: Aspirin 81 gm Chew [Baby Aspirin 81 mg Chew] 81 mg PO DAILY 04/11/14 [History] Albuterol Sulfate [Proair Digihaler] 2 puff IH QID PRN PRN 09/11/20 [History] Atorvastatin Calcium 1 tab PO HS 09/11/20 [History] Budesonide/Formoterol Fumarate [Budesonide-Formoterol 160-4.5] 2 puffs IH BID 09/11/20 [History] Fluticasone Propionate [Flovent Diskus] 2 sprays IN DAILY 09/11/20 [History] PANTOPRAZOLE 40 mg Tablet [Protonix 40MG Tablet] 80 mg PO BID 09/11/20 [History] Ticagrelor [Brilinta] 90 mg PO BID 09/11/20 [History] Tiotropium [place] Inhaler [Spiriva 18 Mcg/Cap Inhaler] 2 puffs IH DAILY 09/11/20 [History] clonazePAM [Clonazepam] 2 mg PO UD PRN 09/11/20 [History] lisinopriL [Lisinopril] 2.5 mg PO BID 09/11/20 [History] Cholecalciferol (Vitamin D3) [Vitamin D3] 125 mcg PO DAILY 03/22/21 [History] Cyanocobalamin 500 Mcg [Vitamin B-12 500 MCG] 1,000 mcg PO DAILY 03/22/21 [History] Ranolazine 500 MG [Ranexa 500 MG] 500 mg PO BID 03/22/21 [History] Acetaminophen 500 mg [Tylenol Extra Strength 500 mg] 2,500 mg PO TID 03/30/21 [History] Nitroglycerin [Nitrolingual] 1 gm TL Q5MIN PRN MR X 3 PRN 03/30/21 [History] Hx Tetanus, Diphtheria Vaccination/Date Given: Yes Hx Influenza Vaccination/Date Given: No Hx Pneumococcal Vaccination/Date Given: No Travel Risk - International Travel Have you traveled outside of the country in past 3 weeks: No - Coronavirus Screening Are you exhibiting any of the following symptoms?: No Close contact with a COVID-19 positive Pt in past 14-21 Days: No - Vaccine Status Have you recieved a Covid-19 vaccination: Yes 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 - Past Medical History Pertinent Past Medical History: Yes Neurological History: Peripheral Neuropathy, TIA ENT History: No Pertinent History Cardiac History: Aneurysm, Coronary Artery Disease, High Cholesterol, Hypertension, Myocardial Infarction (ME) Respiratory History: Asthma, COPD, Emphysema, Pneumonia, Sleep Apnea, Other Endocrine Medical History: Hypothyroidism Musculoskeletal History: Degenerative Disk Disease GI Medical History: Gallbladder Disease, Hernia History: Other Psycho-Social History: Anxiety Male Reproductive Disorders: No Pertinent History Other Medical History: CHRONIC BACK PAIN, carotid artery disease. KIDNEY STONES - Past Surgical History Past Surgical History: Yes Neuro Surgical History: No Pertinent History Cardiac: Cardiac Catheterization, Cardiac Stent Respiratory: Other Gastrointestinal: No Pertinent History Genitourinary: No Pertinent History Musculoskeletal: Orthopedic Surgery Male Surgical History: No Pertinent History Other Surgical History: R lung cut a 1/4 inch off the top. 1988, back surgery , inspire placement, rt leg fx - Social History Smoking Status: Current every day smoker How long have you smoked: 48 yrs Exposure to second hand smoke: No Drug Use: none Patient Lives Alone: No - Review of Systems Constitutional: No Symptoms Eyes: No Symptoms, Foreign Body Sensation Respiratory: No Symptoms Cardiac: No Symptoms Abdominal/Gastrointestinal: No Symptoms Genitourinary Symptoms: Testicle Pain (Bilateral), No Dysuria, No Hematuria Musculoskeletal: No Symptoms Skin: No Symptoms Neurological: No Symptoms Psychological: No Symptoms Endocrine: No Symptoms Hematologic/Lymphatic: No Symptoms Immunological/Allergic: No Symptoms All Other Systems: Reviewed and Negative - Nursing Vital Signs Nursing Vital Signs: Initial Vital Signs Temperature 97.1 F 04/12/22 00:47 Pulse Rate 67 04/12/22 00:47 Respiratory Rate 20 04/12/22 00:47 Blood Pressure 175/86 04/12/22 00:47 O2 Sat by Pulse Oximetry 99 04/12/22 00:47 Pain Scale Pain Intensity 8 - Physical Exam General Appearance: no apparent distress, alert, anxiety Eye Exam: PERRL/EOMI Ears, Nose, Throat Exam: normal ENT inspection, moist mucous membranes Neck Exam: normal inspection, non-tender, supple, full range of motion Respiratory Exam: airway intact, No chest tenderness, No respiratory distress Gastrointestinal/Abdomen Exam: No tenderness Rectal Exam: not done Male Genital Exam: testicular tenderness (R), testicular tenderness (L), No epididymal tenderness, No hernia mass, No inguinal tenderness (There is no evidence of testicular torsion. The testicles are not swollen. However they are tender. I do not appreciate testicular masses.), No urethral discharge Back Exam: normal inspection, normal range of motion, No CVA tenderness, No vertebral tenderness Extremity Exam: normal inspection, normal range of motion, pelvis stable Neurologic Exam: alert, oriented x 3, cooperative, global lead II-XII nml as tested, normal mood/affect, nml cerebellar function, nml station & gait, sensation nml Skin Exam: normal color, warm, dry Lymphatic Exam: No adenopathy SpO2 Interpretation: normal SpO2: 99 O2 Delivery: Room Air - Course Nursing assessment & vital signs reviewed: Yes Ordered Tests: Active Orders 24 hr Category Date Time Status UA W/RFX UR CULTURE Stat Lab 04/12/22 01:07 Completed Medication Summary Discontinued Medications Generic Name Dose Route Start Last Admin Trade Name Gilles PRN Reason Stop Dose Admin Oxycodone/Acetaminophen 2 tab 04/12/22 01:03 04/12/22 01:11 Oxycodone Hcl/Apap 5 Mg/325 Mg Tablet PO 04/12/22 01:04 2 tab SENT HOME W/ PATIENT STA Administration Oxycodone/Acetaminophen Confirm 04/12/22 01:10 Oxycodone Hcl/Apap 5 Mg/325 Mg Tablet Administered 04/12/22 01:11 Dose 2 tab .ROUTE .STK-MED ONE Lab/Rad Data: Laboratory Results 04/12/22 Range/Units 01:07 Urine Color Yellow (Yellow) Urine Appearance Clear (Clear) Urine pH 5.5 (4.6-8.0) Ur Specific [place] >=1.030 A (1.005-1.030) Urine Protein Negative (Negative) Urine Glucose (UA) Negative (Negative) mg/dL Urine Ketones Trace A (Negative) Urine Blood Negative (Negative) Urine Nitrite Negative (Negative) Urine Bilirubin Negative (Negative) Urine Urobilinogen 1.0 A (0.2) mg/dL Ur Leukocyte Esterase Negative (Negative) U Hyaline Cast (Auto) NONE SEEN (0-2) /LPF Urine Microscopic RBC 0-2 (0-5) /HPF Urine Microscopic WBC 0-2 (0-5) /HPF Ur Epithelial Cells None Seen (None Seen) /HPF Urine Bacteria None Seen (None Seen) /HPF Urine Culture Reflexed NO (NO) - Progress Progress: unchanged Progress Note: 04/12/22 01:10 This patient's medical issue is of low complexity. I reviewed the patient's past medical history, medication list, medical allergy list, performed a physica l examination and took history of present illness. Based on the above I ordered a urinalysis. My original plan was to order an outpatient testicular ultrasound of both testicles. However, the patient states that he will talk to his primary care doctor later today to get [facility] I do not feel that the patient has testicular torsion and does not need an emergent testicular ultrasound. I do think he would benefit from obtaining one though. Therefore I did not order this study because he stated that he would make arrangements through the [facility] system to get that performed. If the urinalysis returns and there is infection I will write for an antibiotic here in the emergency department and then send a prescription to his pharmacy. I will send to Percocet pain medication home with him (Percocet 5/325). Patient can take Percocet orally and Dilaudid orally or by injection. Counseled pt/family regarding: lab results, diagnosis, need for follow-up Medical Desision Making - Discussion of managment Reviewed:: Test results Agreed on:: Treatment plan, need for follow-up - Diagnostic Testing Diagnostic test were ordered, analyzed, and reviewed by me: Yes - Risk of complications Minimal Risk: Minimal risk of morbidity Low Risk: Low risk of morbidity from additional dx testing or treatment - Departure Departure Disposition: Home Clinical Impression: Testicular pain, left, Testicular pain, right Condition: Stable Critical Care Time: No Referrals: HOSPITAL,'S [Primary Care Provider] - Follow up/PCP as directed Additional Instructions: Follow-up with your primary care provider later today to make arranges for an outpatient testicular ultrasound. Resume all your other medication as prescribed.
[2022-04-12 01:23] LABS: Appearance Clear (Clear); Bacteria None Seen /HPF (None Seen); Bilirubin Negative (Negative); Blood Negative (Negative); Epithelial Cells None Seen /HPF (None Seen); Glucose, Urine Negative (Negative); Hyaline Casts NONE SEEN /LPF (0-2); Ketones Trace (Negative); Leukocyte Esterase Negative (Negative); Nitrite Negative (Negative); Ph 5.5 (4.6-8.0); Protein,Urine Dip Negative (Negative); RBC 0-2 /HPF (0-5); Specific Gravity >=1.030 (1.005-1.030); WBC 0-2 /HPF (0-5)
[2022-04-12 01:24] LABS: ADD URINE CULTURE? NO (NO)
[2022-04-12 01:37] VITALS: BP 152/98; PULSE 80; O2SAT 97
== END 2022-04-12 01:41 | disposition home or self-care (01) ==
LOC: ED 00:40
DX: N50.811 Right testicular pain (principal); N50.812 Left testicular pain; E78.5 Hyperlipidemia, unspecified; J43.9 Emphysema, unspecified; I10 Essential (primary) hypertension; Z79.02 Long term (current) use of antithrombotics/antiplatelets; Z79.899 Other long term (current) drug therapy; Z72.0 Tobacco use
CPT/HCPCS: 81001; 99282; A9270-GY

== ENCOUNTER 2022-07-09 21:13 | Emergency (ER) | payer OTHER ==
--- NOTE | 2022-07-09 21:47 | ERPHSYRPT ---
- History of Present Illness Time Seen by Provider: 07/09/22 21:47 Historian: patient Exam Limitations: no limitations Physician History: 56-year-old male presents emergency room with a 3-day history of worsening abdominal pain. Patient has a history of CAD with stents placed in March 2022 and a percutaneous cholecystostomy tube that was placed last month. Patient reports that the pain is burning in nature 10 out of 10 in severity and is located at the site where the tube enters the skin. He denies any fevers, chills, nausea, vomiting, chest pain, dysuria, hematuria, urgency, shortness of breath or swelling. Patient also states that he has an abdominal aortic aneurysm that measured at 3.7 on most recent imaging within the past year. Timing/Duration: day(s) (3) Activities at Onset: rest Quality: burning Abdominal Pain Onset Location: RUQ, RLQ, flank Pain Radiation: no radiation Severity of Pain-Max: severe Severity of Pain-Current: severe Modifying Factors: Improves With: nothing. Worsens With: movement, palpation Associated Symptoms: No chest pain, No diaphoresis, No fever/chills, No nausea, No vomiting Previous symptoms: recently treated (percutaneous cholecystostomy tube placed last month) Allergies/Adverse Reactions: hydrocodone bitartrate [From Vicodin] Allergy (Verified 07/09/22 21:41) Rash Iodinated Contrast Media Allergy (Verified 07/09/22 21:41) ketorolac [From Toradol] Allergy (Verified 07/09/22 21:41) Penicillins Allergy (Verified 07/09/22 21:41) venlafaxine Allergy (Verified 07/09/22 21:41) codeine Adverse Reaction (Verified 07/09/22 21:41) codeine phosphate [From Codar D] Adverse Reaction (Verified 07/09/22 21:41) morphine Adverse Reaction (Verified 07/09/22 21:41) pseudoephedrine HCl [From Codar D] Adverse Reaction (Verified 07/09/22 21:41) Home Medications: Aspirin 81 gm Chew [Baby Aspirin 81 mg Chew] 81 mg PO DAILY 04/11/14 [History] Albuterol Sulfate [Proair Digihaler] 2 puff IH QID PRN PRN 09/11/20 [History] Atorvastatin Calcium 1 tab PO HS 09/11/20 [History] Budesonide/Formoterol Fumarate [Budesonide-Formoterol 160-4.5] 2 puffs IH BID 09/11/20 [History] Fluticasone Propionate [Flovent Diskus] 2 sprays IN DAILY 09/11/20 [History] PANTOPRAZOLE 40 mg Tablet [Protonix 40MG Tablet] 80 mg PO BID 09/11/20 [History] Ticagrelor [Brilinta] 90 mg PO BID 09/11/20 [History] Tiotropium [place] Inhaler [Spiriva 18 Mcg/Cap Inhaler] 2 puffs IH DAILY 09/11/20 [History] clonazePAM [Clonazepam] 2 mg PO UD PRN 09/11/20 [History] lisinopriL [Lisinopril] 2.5 mg PO BID 09/11/20 [History] Cholecalciferol (Vitamin D3) [Vitamin D3] 125 mcg PO DAILY 03/22/21 [History] Cyanocobalamin 500 Mcg [Vitamin B-12 500 MCG] 1,000 mcg PO DAILY 03/22/21 [History] Ranolazine 500 MG [Ranexa 500 MG] 500 mg PO BID 03/22/21 [History] Acetaminophen 500 mg [Tylenol Extra Strength 500 mg] 2,500 mg PO TID 03/30/21 [History] Nitroglycerin [Nitrolingual] 1 gm TL Q5MIN PRN MR X 3 PRN 03/30/21 [History] Hx Tetanus, Diphtheria Vaccination/Date Given: Yes Hx Influenza Vaccination/Date Given: No Hx Pneumococcal Vaccination/Date Given: No Travel Risk - Vaccine Status Have you recieved a Covid-19 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 - Review of Systems Constitutional: No Symptoms Eyes: No Symptoms Ears, Nose, & Throat: No Symptoms Respiratory: No Symptoms Cardiac: No Symptoms Abdominal/Gastrointestinal: Abdominal Pain, No Nausea, No Vomiting Genitourinary Symptoms: Flank Pain, No Dysuria, No Frequency, No Hematuria, No Urgency Musculoskeletal: No Symptoms Skin: Other (some redness around perc tana tube) Neurological: No Symptoms - Past Medical History Pertinent Past Medical History: Yes Neurological History: Peripheral Neuropathy, TIA ENT History: No Pertinent History Cardiac History: Aneurysm, Coronary Artery Disease, High Cholesterol, Hypertension, Myocardial Infarction (SC) Respiratory History: Asthma, COPD, Emphysema, Pneumonia, Sleep Apnea, Other Endocrine Medical History: Hypothyroidism Musculoskeletal History: Degenerative Disk Disease GI Medical History: Gallbladder Disease, Hernia History: Other Psycho-Social History: Anxiety Male Reproductive Disorders: No Pertinent History Other Medical History: CHRONIC BACK PAIN, carotid artery disease. KIDNEY STONES - Past Surgical History Past Surgical History: Yes Neuro Surgical History: No Pertinent History Cardiac: Cardiac Catheterization, Cardiac Stent Respiratory: Other Gastrointestinal: No Pertinent History Genitourinary: No Pertinent History Musculoskeletal: Orthopedic Surgery Male Surgical History: No Pertinent History Other Surgical History: R lung cut a 1/4 inch off the top. 1988, back surgery , inspire placement, rt leg fx - Social History Smoking Status: Current every day smoker How long have you smoked: 48 yrs Exposure to second hand smoke: No Drug Use: none Patient Lives Alone: No - Nursing Vital Signs Nursing Vital Signs: Initial Vital Signs Temperature 97.2 F 07/09/22 21:42 Pulse Rate 83 07/09/22 21:42 Respiratory Rate 16 07/09/22 21:42 Blood Pressure 128/70 07/09/22 21:42 O2 Sat by Pulse Oximetry 100 07/09/22 21:42 Pain Scale Pain Intensity 7 - Physical Exam General Appearance: mild distress Eye Exam: eyes nml inspection, No scleral icterus Ears, Nose, Throat Exam: normal ENT inspection Neck Exam: normal inspection, full range of motion Respiratory Exam: normal breath sounds, lungs clear, airway intact, No respiratory distress Cardiovascular Exam: regular rate/rhythm, normal heart sounds, capillary refill <2 sec, No edema Gastrointestinal/Abdomen Exam: soft, normal bowel sounds, tenderness (RUQ, RLQ), guarding, other (perc tana tube present, minimal erythema surrounding entry site w/ some grannulation tissue present, normal appearing bile in drainage bag), No distention, No rebound Back Exam: normal inspection, normal range of motion, No CVA tenderness Extremity Exam: No swelling, No tenderness Neurologic Exam: alert, oriented x 3, cooperative Skin Exam: normal color, warm, dry SpO2 Interpretation: normal O2 Delivery: Room Air - Course Nursing assessment & vital signs reviewed: Yes EKG Interpreted by Me: RATE (78), Sinus Rhythm, NORMAL AXIS, NORMAL INTERVALS, NORMAL QRS, Other (q wave inferior leads) - CT Exams Abdomen/Pelvis CT Interpretation: Tele-radiologist Report, Other (perc tana tube in place w/o abnormal findings, old calcified granulomas of liver and spleen, 3.1cm AAA) Ordered Tests: Active Orders 24 hr Category Date Time Status EKG-ER Only STAT Care 07/09/22 22:00 Active IV Insertion STAT Care 07/09/22 22:00 Active ABDOMEN AND PELVIS W/0 CONTRAS [CT] Stat Exams 07/09/22 22:01 Completed BLOOD CULTURE Stat Lab 07/09/22 22:43 Received CBC W DIFF Stat Lab 07/09/22 22:24 Completed CMP Stat Lab 07/09/22 22:24 Completed CULTURE,URINE Stat Lab 07/09/22 22:08 Received LIPASE Stat Lab 07/09/22 22:24 Completed Lactic Acid Stat Lab 07/09/22 22:23 Completed TROPONIN Q4H Lab 07/09/22 22:24 Completed TROPONIN Q4H Lab 07/10/22 02:00 Ordered TROPONIN Q4H Lab 07/10/22 06:00 Ordered UA W/RFX UR CULTURE Stat Lab 07/09/22 22:08 Completed Medication Summary Discontinued Medications Generic Name Dose Route Start Last Admin Trade Name Freq PRN Reason Stop Dose Admin Hydromorphone HCl 2 mg 07/09/22 22:00 07/09/22 22:30 Hydromorphone 1 Mg/1ml Inj IV 07/09/22 22:01 2 mg STAT ONE Administration Hydromorphone HCl Confirm 07/09/22 22:24 Hydromorphone 1 Mg/1ml Inj Administered 07/09/22 22:25 Dose 2 mg .ROUTE .STK-MED ONE Sodium Chloride 1,000 mls @ 999 mls/hr 07/09/22 22:00 07/09/22 23:54 Sodium Chloride 0.9% 1000 Ml IV 07/09/22 23:00 Infused .Q1H1M STA Infusion Sodium Chloride Confirm 07/09/22 22:24 Sodium Chloride 0.9% 1000 Ml Administered 07/09/22 22:25 Dose 1,000 mls @ ud .ROUTE .STK-MED ONE Lab/Rad Data: Laboratory Result Diagrams 07/09/22 22:24 07/09/22 22:24 Laboratory Results 07/09/22 07/09/22 07/09/22 Range/Units 22:24 22:24 22:23 WBC 6.0 (4.0-10.5) x10^3/uL RBC 3.75 L (4.1-5.6) x10^6/uL Hgb 11.1 L (12.5-18.0) g/dL Hct 36.0 L (42-50) % MCV 96.0 (78-100) fL MCH 29.6 (26-32) pg MCHC 30.8 L (32-36) g/dL RDW 15.0 H (11.5-14.0) % Plt Count 144 L (150-450) x10^3/uL MPV 9.5 (7.5-11.0) fL Gran % 69.5 H (36.0-66.0) % Immature Gran % (Auto) 0.2 (0.00-0.4) % Nucleat RBC Rel Count 0.0 (0.00-0.1) % Eos # (Auto) 0.09 (0-0.5) x10^3/uL Immature Gran # (Auto) 0.01 (0.00-0.03) x10^3u/L Absolute Lymphs (auto) 1.41 (1.0-4.6) x10^3/uL Absolute Monos (auto) 0.30 (0.0-1.3) x10^3/uL Absolute Nucleated RBC 0.00 (0.00-0.01) x10^3u/L Lymphocytes % 23.5 L (24.0-44.0) % Monocytes % 5.0 (0.0-12.0) % Eosinophils % 1.5 (0.00-5.0) % Basophils % 0.3 (0.0-0.4) % Absolute Granulocytes 4.16 (1.4-6.9) x10^3/uL Basophils # 0.02 (0-0.4) x10^3/uL Sodium 143 (137-145) mmol/L Potassium 3.9 (3.5-5.1) mmol/L Chloride 109 H (98-107) mmol/L Carbon Dioxide 25 (22-30) mmol/L Anion Gap 13.2 (5-15) MEQ/L BUN 16 (9-20) mg/dL Creatinine 1.32 H (0.66-1.25) mg/dL Estimated GFR 59.4 ML/MIN Glucose 83 (74-106) mg/dL Lactic Acid 0.8 (0.4-2.0) Calcium 8.7 (8.4-10.2) mg/dL Total Bilirubin 0.50 (0.2-1.3) mg/dL AST 21 (17-59) U/L ALT 15 (0-50) U/L Alkaline Phosphatase 80 (38-126) U/L Troponin I < 0.012 (0.000-0.034) ng/mL Serum Total Protein 7.8 (6.3-8.2) g/dL Albumin 4.0 (3.5-5.0) g/dL Lipase 102 (23-300) U/L Urine Color (Yellow) Urine Appearance (Clear) Urine pH (4.6-8.0) Ur Specific [place] (1.005-1.030) Urine Protein (Negative) Urine Glucose (UA) (Negative) mg/dL Urine Ketones (Negative) Urine Blood (Negative) Urine Nitrite (Negative) Urine Bilirubin (Negative) Urine Urobilinogen (0.2) mg/dL Ur Leukocyte Esterase (Negative) U Hyaline Cast (Auto) (0-2) /LPF Urine Microscopic RBC (0-5) /HPF Urine Microscopic WBC (0-5) /HPF Ur Epithelial Cells (None Seen) /HPF Urine Bacteria (None Seen) /HPF Urine Culture Reflexed (NO) 07/09/22 Range/Units 22:08 WBC (4.0-10.5) x10^3/uL RBC (4.1-5.6) x10^6/uL Hgb (12.5-18.0) g/dL Hct (42-50) % MCV (78-100) fL MCH (26-32) pg MCHC (32-36) g/dL RDW (11.5-14.0) % Plt Count (150-450) x10^3/uL MPV (7.5-11.0) fL Gran % (36.0-66.0) % Immature Gran % (Auto) (0.00-0.4) % Nucleat RBC Rel Count (0.00-0.1) % Eos # (Auto) (0-0.5) x10^3/uL Immature Gran # (Auto) (0.00-0.03) x10^3u/L Absolute Lymphs (auto) (1.0-4.6) x10^3/uL Absolute Monos (auto) (0.0-1.3) x10^3/uL Absolute Nucleated RBC (0.00-0.01) x10^3u/L Lymphocytes % (24.0-44.0) % Monocytes % (0.0-12.0) % Eosinophils % (0.00-5.0) % Basophils % (0.0-0.4) % Absolute Granulocytes (1.4-6.9) x10^3/uL Basophils # (0-0.4) x10^3/uL Sodium (137-145) mmol/L Potassium (3.5-5.1) mmol/L Chloride (98-107) mmol/L Carbon Dioxide (22-30) mmol/L Anion Gap (5-15) MEQ/L BUN (9-20) mg/dL Creatinine (0.66-1.25) mg/dL Estimated GFR ML/MIN Glucose (74-106) mg/dL Lactic Acid (0.4-2.0) Calcium (8.4-10.2) mg/dL Total Bilirubin (0.2-1.3) mg/dL AST (17-59) U/L ALT (0-50) U/L Alkaline Phosphatase (38-126) U/L Troponin I (0.000-0.034) ng/mL Serum Total Protein (6.3-8.2) g/dL Albumin (3.5-5.0) g/dL Lipase (23-300) U/L Urine Color Yellow (Yellow) Urine Appearance Clear (Clear) Urine pH 5.0 (4.6-8.0) Ur Specific [place] >=1.030 A (1.005-1.030) Urine Protein 30 (Negative) Urine Glucose (UA) Negative (Negative) mg/dL Urine Ketones Negative (Negative) Urine Blood Large A (Negative) Urine Nitrite Negative (Negative) Urine Bilirubin Negative (Negative) Urine Urobilinogen 0.2 (0.2) mg/dL Ur Leukocyte Esterase Trace A (Negative) U Hyaline Cast (Auto) 6-10 A (0-2) /LPF Urine Microscopic RBC 51-100 A (0-5) /HPF Urine Microscopic WBC 0-2 (0-5) /HPF Ur Epithelial Cells None Seen (None Seen) /HPF Urine Bacteria None Seen (None Seen) /HPF Urine Culture Reflexed YES (NO) - Progress Progress Note: 07/10/22 00:07 CBC showed a hemoglobin of 11.1, white count within normal limits. CMP within normal limits. EKG sinus rhythm with Q waves in inferior leads consistent with his SC from March. Initial troponin was negative. His UA showed large amounts of blood with 51-100 red blood cells trace leukocyte Estrace. His CT abdomen and pelvis showed no acute findings. Discussed at length treatment and work-up for hematuria. Patient very possibly could have passed a kidney stone prior to arrival. Since I have no evidence of nephrolithiasis or hydroureter/hydronephrosis I will treat as a UTI at this time. I talked to the patient about the importance of a repeat urinalysis at 6 weeks to see if the blood in his urine has resolved if not patient may need referral to urology for further evaluation. He is a current half pack a day smoker and has been for several years this does place the patient at risk for transitional cell carcinoma of the bladder. Counseled pt/family regarding: lab results, diagnosis, need for follow-up, rad results Medical Desision Making - Diagnostic Testing Diagnostic test were ordered, analyzed, and reviewed by me: Yes Radiological Interpretation: Reviewed by me, Teleradiologist Report - Risk of complications The pt has a mod risk of morbidity or mortality based on: Need for prescription drug management - Departure Departure Disposition: Home Clinical Impression: Hematuria, UTI (urinary tract infection), Abdominal pain Condition: Stable Critical Care Time: No Referrals: [facility]OSP[facility],'S [Primary Care Provider] - Follow up/PCP as directed Instructions: Blood in the Urine (Hematuria) in Adults Prescriptions: Cephalexin Mh 500 mg [Keflex 500 mg] 500 mg PO TID 7 Days #21 cap Oxycodone / APAP 10/325 mg [Oxycodone-Acetaminophen 10-325] 1 each PO Q6H PRN #12 tablet MDD 4 tab PRN Reason: Pain
[2022-07-09] MEDS ORDERED: Hydromorphone 1 mg/ml Injection IV ONE (22:00)
[2022-07-09] MEDS ORDERED: Sodium Chloride 0.9% 1000 ML 1,000 ML IV STA (22:00)
[2022-07-09] MEDS ORDERED: Sodium Chloride 0.9% 1000 ML 1,000 ML ONE (22:24)
[2022-07-09] MEDS ORDERED: Hydromorphone 1 mg/ml Injection ONE (22:24)
[2022-07-09 22:26] LABS: Appearance Clear (Clear); Bacteria None Seen /HPF (None Seen); Bilirubin Negative (Negative); Blood Large (Negative); Epithelial Cells None Seen /HPF (None Seen); Glucose, Urine Negative (Negative); Ketones Negative (Negative); Leukocyte Esterase Trace (Negative); Nitrite Negative (Negative); Protein,Urine Dip 30 (Negative); RBC 51-100 /HPF (0-5); Specific Gravity >=1.030 (1.005-1.030); Urobilinogen 0.2 mg/dL (0.2); WBC 0-2 /HPF (0-5)
[2022-07-09 22:27] LABS: Absolute Neutrophil Ct (ANC) 4.16 x10^3/uL (1.4-6.9); BASOPHIL % 0.3 % (0.0-0.4); Basophil (Absolute #) 0.02 x10^3/uL (0-0.4); Eosinophil % 1.5 % (0.00-5.0); Eosinophil (Absolute #) 0.09 x10^3/uL (0-0.5); Hemoglobin 11.1 g/dL (12.5-18.0); IMMATURE GRAN # 0.01 x10^3u/L (0.00-0.03); IMMATURE GRAN % 0.2 % (0.00-0.4); Lymphocyte (Absolute #) 1.41 x10^3/uL (1.0-4.6); Lymphocytes % 23.5 % (24.0-44.0); Mean Corpuscular Hemoglobin 29.6 pg (26-32); Mean Corpuscular Hgb Concent. 30.8 g/dL (32-36); Mean Platelet Volume 9.5 fL (7.5-11.0); Neutrophil % 69.5 % (36.0-66.0); Platelet Count 144 x10^3/uL (150-450); Red Blood Count 3.75 x10^6/uL (4.1-5.6)
[2022-07-09 22:29] LABS: ADD URINE CULTURE? YES (NO)
[2022-07-09 23:03] LABS: ALKALINE PHOSPHATASE 80 U/L (38-126); ANION GAP 13.2 MEQ/L (5-15); BLOOD UREA NITROGEN 16 mg/dL (9-20); CHLORIDE 109 mmol/L (98-107); Calcium 8.7 mg/dL (8.4-10.2); Carbon Dioxide 25 mmol/L (22-30); Creatinine 1 1.32 mg/dL (0.66-1.25); EST GLOMERULAR FILTRATION RATE 59.4 ML/MIN; Glucose 83 mg/dL (74-106); LIPASE 102 U/L (23-300); Potassium 3.9 mmol/L (3.5-5.1); SGOT/AST 21 U/L (17-59); SGPT/ALT 15 U/L (0-50); SODIUM 143 mmol/L (137-145); TROPONIN < 0.012 ng/mL (0.000-0.034); Total Protein 7.8 g/dL (6.3-8.2)
[2022-07-09 23:07] VITALS: PULSE 86
--- NOTE | 2022-07-09 23:49 | XRAY ---
CLINICAL HISTORY:Abdominal pain/burning in right upper quadrant at site of percutaneous tana tube; COMPARISON:03/11/2022; TECHNIQUES:CT scan of the abdomen and pelvis was performed without IV contrast. Coronal and sagittal reconstructive images were also obtained. CTDI: 5.77, DLP: 301.2 mGy*cm; FINDINGS: The liver is mildly enlarged in size, measuring 16.2 cm craniocaudally and shows few tiny calcific foci in its parenchyma. The intrahepatic biliary radicals and the bile ducts are normal. Gallbladder is contracted with percutaneous drainage catheter in gallbladder. No evidence of significant collections / inflammatory changes seen. The spleen also shows few tiny calcific foci in its parenchyma. The pancreas, adrenal glands are unremarkable. The kidneys are unremarkable. They are normal in size and shape. No calculi or hydronephrosis. The ascending colon, the transverse colon, the descending colon, visualized small bowel loops are unremarkable. There is no evidence of significant enlargement of the mesenteric or retroperitoneal lymph nodes. The abdominal aorta and its branches shows atherosclerotic changes with calcified plaques. Focal aneurysmal dilatations seen in abdominal aorta, measuring 31 mm in maximum calibre. No evidence of rupture/leak. The urinary bladder is unremarkable. The rectosigmoid colon is unremarkable. The prostate appears unremarkable. No evidence of pelvic lymphadenopathy. The lumbar spine shows degenerative changes. Metallic instrumentations of the lumbar spine is noted. IMPRESSION: 1. Percutaneous gallbladder drainage catheter in situ, (newly seen) no evidence of significant collection/inflammatory changes. 2. Old calcified granulomas in liver and spleen. 3. Focal aneurysmal dilatations in abdominal aorta, no evidence of rupture/leak. Electronically Signed by: Cherelle Elise MD. (07/09/2022 22:44:12 GLASS MECHANIC)
[2022-07-10 00:03] VITALS: BP 151/89; O2SAT 97
[2022-07-10] MEDS ORDERED: Hydromorphone 1 mg/ml Injection IV ONE (00:06)
[2022-07-10] MEDS ORDERED: Hydromorphone 1 mg/ml Injection ONE (00:08)
== END 2022-07-10 00:41 | disposition home or self-care (01) ==
LOC: ED 21:13
DX: N39.0 Urinary tract infection, site not specified (principal); R31.9 Hematuria, unspecified; R10.9 Unspecified abdominal pain; E78.5 Hyperlipidemia, unspecified; I10 Essential (primary) hypertension; Z79.02 Long term (current) use of antithrombotics/antiplatelets; Z79.891 Long term (current) use of opiate analgesic; Z79.899 Other long term (current) drug therapy; Z72.0 Tobacco use
CPT/HCPCS: 36000; 36415; 74176; 80053; 81001; 83605; 83690; 84484; 85025; 87040; 87086; 93005; 96360; 96374; 96376; 99284; J1170

== ENCOUNTER 2022-07-23 21:33 | Emergency (ER) | payer OTHER ==
[2022-07-23 22:11] VITALS: O2SAT 100
[2022-07-23 22:24] LABS: Appearance Clear (Clear); Bacteria None Seen /HPF (None Seen); Bilirubin Negative (Negative); Blood Negative (Negative); Epithelial Cells None Seen /HPF (None Seen); Glucose, Urine Negative (Negative); Ketones Trace (Negative); Leukocyte Esterase Negative (Negative); Nitrite Negative (Negative); Ph 5.5 (4.6-8.0); Protein,Urine Dip 30 (Negative); RBC 0-2 /HPF (0-5); Specific Gravity >=1.030 (1.005-1.030); WBC 0-2 /HPF (0-5)
[2022-07-23 22:38] LABS: Absolute Neutrophil Ct (ANC) 5.68 x10^3/uL (1.4-6.9); BASOPHIL % 0.3 % (0.0-0.4); Basophil (Absolute #) 0.02 x10^3/uL (0-0.4); Eosinophil % 0.8 % (0.00-5.0); Eosinophil (Absolute #) 0.06 x10^3/uL (0-0.5); Hematocrit 33.5 % (42-50); Hemoglobin 10.5 g/dL (12.5-18.0); IMMATURE GRAN # 0.02 x10^3u/L (0.00-0.03); IMMATURE GRAN % 0.3 % (0.00-0.4); Lymphocyte (Absolute #) 1.28 x10^3/uL (1.0-4.6); Lymphocytes % 17.4 % (24.0-44.0); Mean Cell Volume 96.5 fL (78-100); Mean Corpuscular Hemoglobin 30.3 pg (26-32); Mean Corpuscular Hgb Concent. 31.3 g/dL (32-36); Mean Platelet Volume 9.4 fL (7.5-11.0); Monocytes % 4.1 % (0.0-12.0); Neutrophil % 77.1 % (36.0-66.0); Platelet Count 157 x10^3/uL (150-450); Red Blood Count 3.47 x10^6/uL (4.1-5.6); Red Cell Distribution Width 15.3 % (11.5-14.0); White Blood Count 7.4 x10^3/uL (4.0-10.5)
[2022-07-23 22:40] LABS: ADD URINE CULTURE? NO (NO)
[2022-07-23] MEDS ORDERED: Hydromorphone 1 mg/ml Injection IM ONE (22:53)
[2022-07-23 22:56] LABS: ALBUMIN 3.4 g/dL (3.5-5.0); ANION GAP 12.6 MEQ/L (5-15); BILIRUBIN,TOTAL 0.3 mg/dL (0.2-1.3); Calcium 8.6 mg/dL (8.4-10.2); Creatinine 1 1.31 mg/dL (0.66-1.25); EST GLOMERULAR FILTRATION RATE 59.9 ML/MIN; Potassium 3.6 mmol/L (3.5-5.1); Total Protein 6.9 g/dL (6.3-8.2)
[2022-07-23] MEDS ORDERED: Hydromorphone 1 mg/ml Injection ONE (23:13)
--- NOTE | 2022-07-23 23:20 | ERPHSYRPT ---
- History of Present Illness Time Seen by Provider: 07/23/22 22:30 Historian: patient Exam Limitations: no limitations Patient Subjective Stated Complaint: chronic back pain/flank pain, pt states "My gallbladder and kidneys hurts." Triage Nursing Assessment: pt ambulatory to room by self, alert and oriented x3, skin pwd, pt c/o back pain and gallbladder issues that has been ongoing for mutiple months, pt is getting gallbladder removed in September. pt has not been able to get his pain meds from pain management d/t pt states "they are sorting out my home meds before I get my gallbladder out." Physician History: This is a 56-year-old white male patient who frequents our hospital often for various pain issues. Most recently, he has been having some gallbladder issues and has a cholecystostomy tube in place. He was seen here in our emergency department on 07/09/2022. He was found to have a mild urinary tract infection and given a prescription for Percocet 5/325 number 12 tablets and Keflex to treat his pain and urinary tract infection respectively. Patient has Percocet pain medicine at home. However today, his right upper quadrant and bilateral flank pain was worse rating it approximately 8 out of 10. He denies chest pain he denies shortness of breath. He has had no nausea vomiting or diarrhea symptoms. I reviewed the patient's last visit to the emergency department and the laboratory work-up results on that visit. Patient states that his pain specialist, Dr. Michael has withheld treatment at this time because of high blood pressure issues. Patient states he has not been taking his blood pressure medicine and the narcotic pain medicine whenever his blood pressure is low. Patient stated that his systolic blood pressure today was 107. However he arrives to the emergency department and his systolic blood pressures 187. Patient also has a title 1 tutor who he is seeing and it is a [facility] physician. The patient's cholecystectomy is scheduled for September 2022. Patient states that his title 1 tutor stated that he might need to have his gallbladder out earlier. He is also awaiting evaluation of his kidneys by the steel plate printer and urologist. Timing/Duration: today Abdominal Pain Onset Location: RUQ (At drainage (cholecystostomy) tube exit site) Pain Radiation: back (Bilateral flank) Severity of Pain-Max: moderate Severity of Pain-Current: moderate Modifying Factors: Worsens With: vomiting Associated Symptoms: No fever/chills, No nausea, No vomiting Previous symptoms: same symptoms as today, recently seen Allergies/Adverse Reactions: hydrocodone bitartrate [From Vicodin] Allergy (Verified 07/23/22 22:19) Rash Iodinated Contrast Media Allergy (Verified 07/23/22 22:19) ketorolac [From Toradol] Allergy (Verified 07/23/22 22:19) Penicillins Allergy (Verified 07/23/22 22:19) venlafaxine Allergy (Verified 07/23/22 22:19) codeine Adverse Reaction (Verified 07/23/22 22:19) codeine phosphate [From Codar D] Adverse Reaction (Verified 07/23/22 22:19) morphine Adverse Reaction (Verified 07/23/22 22:19) pseudoephedrine HCl [From Codar D] Adverse Reaction (Verified 07/23/22 22:19) Home Medications: Aspirin 81 gm Chew [Baby Aspirin 81 mg Chew] 81 mg PO DAILY 04/11/14 [History] Albuterol Sulfate [Proair Digihaler] 2 puff IH QID PRN PRN 09/11/20 [History] Atorvastatin Calcium 1 tab PO HS 09/11/20 [History] Budesonide/Formoterol Fumarate [Budesonide-Formoterol 160-4.5] 2 puffs IH BID 09/11/20 [History] Fluticasone Propionate [Flovent Diskus] 2 sprays IN DAILY 09/11/20 [History] PANTOPRAZOLE 40 mg Tablet [Protonix 40MG Tablet] 80 mg PO BID 09/11/20 [History] Ticagrelor [Brilinta] 90 mg PO BID 09/11/20 [History] Tiotropium [place] Inhaler [Spiriva 18 Mcg/Cap Inhaler] 2 puffs IH DAILY 09/11/20 [History] clonazePAM [Clonazepam] 2 mg PO UD PRN 09/11/20 [History] lisinopriL [Lisinopril] 2.5 mg PO BID 09/11/20 [History] Cholecalciferol (Vitamin D3) [Vitamin D3] 125 mcg PO DAILY 03/22/21 [History] Cyanocobalamin 500 Mcg [Vitamin B-12 500 MCG] 1,000 mcg PO DAILY 03/22/21 [History] Ranolazine 500 MG [Ranexa 500 MG] 500 mg PO BID 03/22/21 [History] Acetaminophen 500 mg [Tylenol Extra Strength 500 mg] 2,500 mg PO TID 03/30/21 [History] Nitroglycerin [Nitrolingual] 1 gm TL Q5MIN PRN MR X 3 PRN 03/30/21 [History] Hx Tetanus, Diphtheria Vaccination/Date Given: Yes Hx Influenza Vaccination/Date Given: No Hx Pneumococcal Vaccination/Date Given: No Immunizations Up to Date: Yes Travel Risk - International Travel Have you traveled outside of the country in past 3 weeks: No - Coronavirus Screening Are you exhibiting any of the following symptoms?: No Close contact with a COVID-19 positive Pt in past 14-21 Days: No - Vaccine Status Have you recieved a Covid-19 vaccination: Yes Hop Trainer: Zuli - Vaccination Dates Date of 2cond Vaccination (if applicable): . - Review of Systems Constitutional: No Symptoms Eyes: No Symptoms Ears, Nose, & Throat: No Symptoms Respiratory: No Symptoms Cardiac: No Symptoms Abdominal/Gastrointestinal: Abdominal Pain (Right upper quadrant at the cholecystostomy tube exit site) Genitourinary Symptoms: Hematuria (Notices hematuria occasionally), No Dysuria, No Frequency Musculoskeletal: No Symptoms Skin: No Symptoms Neurological: No Symptoms Psychological: No Symptoms Endocrine: No Symptoms Hematologic/Lymphatic: No Symptoms Immunological/Allergic: No Symptoms All Other Systems: Reviewed and Negative - Past Medical History Pertinent Past Medical History: Yes Neurological History: Peripheral Neuropathy, TIA ENT History: No Pertinent History Cardiac History: Aneurysm, Coronary Artery Disease, High Cholesterol, Hypertension, Myocardial Infarction ([place]) Respiratory History: Asthma, COPD, Emphysema, Pneumonia, Sleep Apnea, Other Endocrine Medical History: Hypothyroidism Musculoskeletal History: Degenerative Disk Disease GI Medical History: Gallbladder Disease, Hernia History: Other Psycho-Social History: Anxiety Male Reproductive Disorders: No Pertinent History Other Medical History: CHRONIC BACK PAIN, carotid artery disease. KIDNEY STONES - Past Surgical History Past Surgical History: Yes Neuro Surgical History: No Pertinent History Cardiac: Cardiac Catheterization, Cardiac Stent Respiratory: Other Gastrointestinal: No Pertinent History Genitourinary: No Pertinent History Musculoskeletal: Orthopedic Surgery Male Surgical History: No Pertinent History Other Surgical History: R lung cut a 1/4 inch off the top. 1989, back surgery , inspire placement, rt leg fx - Social History Smoking Status: Current every day smoker How long have you smoked: 48 yrs Exposure to second hand smoke: No Drug Use: none Patient Lives Alone: No - Nursing Vital Signs Nursing Vital Signs: Initial Vital Signs Temperature 98.6 F 07/23/22 22:10 Pulse Rate 82 07/23/22 22:10 Respiratory Rate 18 07/23/22 22:10 Blood Pressure 187/84 07/23/22 22:10 O2 Sat by Pulse Oximetry 100 07/23/22 22:10 Pain Scale Pain Intensity 8 - Physical Exam SpO2: 100 Ordered Tests: Active Orders 24 hr Category Date Time Status AMYLASE Stat Lab 07/23/22 22:36 Completed CBC W DIFF Stat Lab 07/23/22 22:36 Completed CMP Stat Lab 07/23/22 22:36 Completed LIPASE Stat Lab 07/23/22 22:36 Completed UA W/RFX UR CULTURE Stat Lab 07/23/22 22:12 Completed Medication Summary Discontinued Medications Generic Name Dose Route Start Last Admin Trade Name Perezq PRN Reason Stop Dose Admin Hydromorphone HCl 2 mg 07/23/22 22:53 Hydromorphone 1 Mg/1ml Inj IM 07/23/22 22:54 STAT ONE Lab/Rad Data: Laboratory Result Diagrams 07/23/22 22:36 07/23/22 22:36 Laboratory Results 07/23/22 07/23/22 07/23/22 Range/Units 22:36 22:36 22:12 WBC 7.4 (4.0-10.5) x10^3/uL RBC 3.47 L (4.1-5.6) x10^6/uL Hgb 10.5 L (12.5-18.0) g/dL Hct 33.5 L (42-50) % MCV 96.5 (78-100) fL MCH 30.3 (26-32) pg MCHC 31.3 L (32-36) g/dL RDW 15.3 H (11.5-14.0) % Plt Count 157 (150-450) x10^3/uL MPV 9.4 (7.5-11.0) fL Gran % 77.1 H (36.0-66.0) % Immature Gran % (Auto) 0.3 (0.00-0.4) % Nucleat RBC Rel Count 0.0 (0.00-0.1) % Eos # (Auto) 0.06 (0-0.5) x10^3/uL Immature Gran # (Auto) 0.02 (0.00-0.03) x10^3u/L Absolute Lymphs (auto) 1.28 (1.0-4.6) x10^3/uL Absolute Monos (auto) 0.30 (0.0-1.3) x10^3/uL Absolute Nucleated RBC 0.00 (0.00-0.01) x10^3u/L Lymphocytes % 17.4 L (24.0-44.0) % Monocytes % 4.1 (0.0-12.0) % Eosinophils % 0.8 (0.00-5.0) % Basophils % 0.3 (0.0-0.4) % Absolute Granulocytes 5.68 (1.4-6.9) x10^3/uL Basophils # 0.02 (0-0.4) x10^3/uL Sodium 145 (137-145) mmol/L Potassium 3.6 (3.5-5.1) mmol/L Chloride 112 H (98-107) mmol/L Carbon Dioxide 23 (22-30) mmol/L Anion Gap 12.6 (5-15) MEQ/L BUN 14 (9-20) mg/dL Creatinine 1.31 H (0.66-1.25) mg/dL Estimated GFR 59.9 ML/MIN Glucose 105 (74-106) mg/dL Calcium 8.6 (8.4-10.2) mg/dL Total Bilirubin 0.30 (0.2-1.3) mg/dL AST 18 (17-59) U/L ALT 13 (0-50) U/L Alkaline Phosphatase 75 (38-126) U/L Serum Total Protein 6.9 (6.3-8.2) g/dL Albumin 3.4 L (3.5-5.0) g/dL Amylase 40 (30-110) U/L Lipase 93 (23-300) U/L Urine Color Yellow (Yellow) Urine Appearance Clear (Clear) Urine pH 5.5 (4.6-8.0) Ur Specific [place] >=1.030 A (1.005-1.030) Urine Protein 30 (Negative) Urine Glucose (UA) Negative (Negative) mg/dL Urine Ketones Trace A (Negative) Urine Blood Negative (Negative) Urine Nitrite Negative (Negative) Urine Bilirubin Negative (Negative) Urine Urobilinogen 1.0 A (0.2) mg/dL Ur Leukocyte Esterase Negative (Negative) U Hyaline Cast (Auto) 3-5 A (0-2) /LPF Urine Microscopic RBC 0-2 (0-5) /HPF Urine Microscopic WBC 0-2 (0-5) /HPF Ur Epithelial Cells None Seen (None Seen) /HPF Urine Bacteria None Seen (None Seen) /HPF Urine Culture Reflexed NO (NO) - Progress Progress: improved Progress Note: 07/23/22 23:25 Patient's medical history is 1 of moderate complexity. The level of complexity in the work-up performed is based on review of the patient's past medical history, review of the patient's medication list, review of the patient's drug allergy list, history of present illness and physical findings on examination. Work-up in this patient includes urinalysis, amylase, lipase, CBC and CMP. I reviewed the results of the studies. The patient's lab work is stable. There is no acute, emergent need for a repeat CAT scan of the abdomen pelvis. Patient had a negative CT scan of the abdomen pelvis performed on 07/01/2022. We will supplement his pain medication tonight by giving him 2 mg intramuscularly of Dilaudid. He has a prescription of Percocet at home which she can use as an outpatient. He was told to contact his primary care provider, pain specialist, surgeon, title 1 tutor, urologist and steel plate printer for further evaluation management. Counseled pt/family regarding: lab results, diagnosis, need for follow-up Medical Desision Making - Independent Historian Additional History obtained from: Spouse - Diagnostic Testing Diagnostic test were ordered, analyzed, and reviewed by me: Yes - Risk of complications Low Risk: Low risk of morbidity from additional dx testing or treatment - Departure Departure Disposition: Home Clinical Impression: Right upper quadrant abdominal pain Condition: Stable Critical Care Time: No Referrals: [facility]OSP[facility],'[facility] [Primary Care Provider] - Follow up/PCP as directed Additional Instructions: Continue your medication as prescribed. Call your prescribing provider, pain specialist, title 1 tutor, surgeon and other specialist tomorrow morning, 07/24/2022 for further evaluation management
[2022-07-23 23:41] VITALS: BP 146/73; PULSE 72
== END 2022-07-24 00:10 | disposition home or self-care (01) ==
LOC: ED 21:33
DX: R10.11 Right upper quadrant pain (principal); E78.5 Hyperlipidemia, unspecified; I10 Essential (primary) hypertension; Z79.02 Long term (current) use of antithrombotics/antiplatelets; Z79.891 Long term (current) use of opiate analgesic; Z79.899 Other long term (current) drug therapy; Z72.0 Tobacco use
CPT/HCPCS: 36415; 80053; 81001; 82150; 83690; 85025; 96372; 99283; J1170

== ENCOUNTER 2022-08-12 21:24 | Emergency (ER) | payer OTHER ==
[2022-08-12 22:04] VITALS: BP 119/65; PULSE 78; O2SAT 98
--- NOTE | 2022-08-12 22:31 | ERPHSYRPT ---
- History of Present Illness Time Seen by Provider: 08/12/22 22:26 Source: patient Exam Limitations: no limitations Patient Subjective Stated Complaint: pt states a piece of his nelson drain broke and he needs something to attatch the nelson to the drain again. Triage Nursing Assessment: pt alert and oriented, answers questions approp. pt ambulates to room with steady gait noted. respirations nonlabored, skin warm and dry. nelson drain to rt abd with y attachment that is open on one side, pt states broke off. y tube removed and replaced with o2 tubing adapter- pt [facility]. Physician History: pt had broken part to his J tube which drains his GB and we replaced it with a sterile connector and it is flowing well without symptoms. he has otw a normal abd exam and is wilver diet well and no problems ans has no symptoms. [facility] to [facility] more functional replacement. Timing/Duration: today Severity: mild Associated Symptoms: denies symptoms Allergies/Adverse Reactions: hydrocodone bitartrate [From Vicodin] Allergy (Verified 07/23/22 22:19) Rash Iodinated Contrast Media Allergy (Verified 07/23/22 22:19) ketorolac [From Toradol] Allergy (Verified 07/23/22 22:19) Penicillins Allergy (Verified 07/23/22 22:19) venlafaxine Allergy (Verified 07/23/22 22:19) codeine Adverse Reaction (Verified 07/23/22 22:19) codeine phosphate [From Codar D] Adverse Reaction (Verified 07/23/22 22:19) morphine Adverse Reaction (Verified 07/23/22 22:19) pseudoephedrine HCl [From Codar D] Adverse Reaction (Verified 07/23/22 22:19) Home Medications: Aspirin 81 gm Chew [Baby Aspirin 81 mg Chew] 81 mg PO DAILY 04/11/14 [History] Albuterol Sulfate [Proair Digihaler] 2 puff IH QID PRN PRN 09/11/20 [History] Atorvastatin Calcium 1 tab PO HS 09/11/20 [History] Budesonide/Formoterol Fumarate [Budesonide-Formoterol 160-4.5] 2 puffs IH BID 09/11/20 [History] Fluticasone Propionate [Flovent Diskus] 2 sprays IN DAILY 09/11/20 [History] PANTOPRAZOLE 40 mg Tablet [Protonix 40MG Tablet] 80 mg PO BID 09/11/20 [Hi story] Ticagrelor [Brilinta] 90 mg PO BID 09/11/20 [History] Tiotropium [place] Inhaler [Spiriva 18 Mcg/Cap Inhaler] 2 puffs IH DAILY 09/11/20 [History] clonazePAM [Clonazepam] 2 mg PO UD PRN 09/11/20 [History] lisinopriL [Lisinopril] 2.5 mg PO BID 09/11/20 [History] Cholecalciferol (Vitamin D3) [Vitamin D3] 125 mcg PO DAILY 03/22/21 [History] Cyanocobalamin 500 Mcg [Vitamin B-12 500 MCG] 1,000 mcg PO DAILY 03/22/21 [History] Ranolazine 500 MG [Ranexa 500 MG] 500 mg PO BID 03/22/21 [History] Acetaminophen 500 mg [Tylenol Extra Strength 500 mg] 2,500 mg PO TID 03/30/21 [History] Nitroglycerin [Nitrolingual] 1 gm TL Q5MIN PRN MR X 3 PRN 03/30/21 [History] Hx Tetanus, Diphtheria Vaccination/Date Given: Yes Hx Influenza Vaccination/Date Given: No Hx Pneumococcal Vaccination/Date Given: No Immunizations Up to Date: Yes Travel Risk - International Travel Have you traveled outside of the country in past 3 weeks: No - Coronavirus Screening Are you exhibiting any of the following symptoms?: No Close contact with a COVID-19 positive Pt in past 14-21 Days: No - Vaccine Status Have you recieved a Covid-19 vaccination: Yes 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 Ironworker Helper: Clifford Thames - Vaccination Dates Date of 2cond Vaccination (if applicable): 2020 - Review of Systems Constitutional: No Fever, No Chills Eyes: No Symptoms Ears, Nose, & Throat: No Symptoms Respiratory: No Cough, No Dyspnea Cardiac: No Chest Pain, No Edema, No Syncope Abdominal/Gastrointestinal: No Abdominal Pain, No Nausea, No Vomiting, No Diarrhea Genitourinary Symptoms: No Dysuria Musculoskeletal: No Back Pain, No Neck Pain Skin: No Rash Neurological: No Dizziness, No Focal Weakness, No Sensory Changes Psychological: No Symptoms Endocrine: No Symptoms Hematologic/Lymphatic: No Symptoms Immunological/Allergic: No Symptoms All Other Systems: Reviewed and Negative - Past Medical History Pertinent Past Medical History: Yes Neurological History: Peripheral Neuropathy, TIA ENT History: No Pertinent History Cardiac History: Aneurysm, Coronary Artery Disease, High Cholesterol, Hypertension, Myocardial Infarction ([place]) Respiratory History: Asthma, COPD, Emphysema, Pneumonia, Sleep Apnea, Other Endocrine Medical History: Hypothyroidism Musculoskeletal History: Degenerative Disk Disease GI Medical History: Gallbladder Disease, Hernia History: Other Psycho-Social History: Anxiety Male Reproductive Disorders: No Pertinent History Other Medical History: CHRONIC BACK PAIN, carotid artery disease. KIDNEY STONES - Past Surgical History Past Surgical History: Yes Neuro Surgical History: No Pertinent History Cardiac: Cardiac Catheterization, Cardiac Stent Respiratory: Other Gastrointestinal: No Pertinent History Genitourinary: No Pertinent History Musculoskeletal: Orthopedic Surgery Male Surgical History: No Pertinent History Other Surgical History: R lung cut a 1/4 inch off the top. 1988, back surgery , inspire placement, rt leg fx. drain placed for bile drainage - Social History Smoking Status: Current every day smoker How long have you smoked: 48 yrs Exposure to second hand smoke: No Drug Use: none Patient Lives Alone: No - Nursing Vital Signs Nursing Vital Signs: Initial Vital Signs Temperature 97.8 F 08/12/22 21:48 Pulse Rate 78 08/12/22 21:48 Respiratory Rate 18 08/12/22 21:48 Blood Pressure 119/65 08/12/22 21:48 O2 Sat by Pulse Oximetry 98 08/12/22 21:48 Pain Scale Pain Intensity 5 - Physical Exam General Appearance: no apparent distress, alert Eye Exam: PERRL/EOMI, eyes nml inspection Ears, Nose, Throat Exam: normal ENT inspection, TMs normal, pharynx normal, moist mucous membranes Neck Exam: normal inspection, non-tender, supple, full range of motion Respiratory Exam: normal breath sounds, lungs clear, No respiratory distress Cardiovascular Exam: regular rate/rhythm, normal heart sounds, normal peripheral pulses Gastrointestinal/Abdomen Exam: soft, normal bowel sounds, No tenderness, No mass Back Exam: normal inspection, normal range of motion, No CVA tenderness, No vertebral tenderness Extremity Exam: normal inspection, normal range of motion, pelvis stable Neurologic Exam: alert, oriented x 3, cooperative, normal mood/affect, nml cerebellar function, nml station & gait, sensation nml, No motor deficits Skin Exam: normal color, warm, dry, No rash Lymphatic Exam: No adenopathy SpO2 Interpretation: normal SpO2: 98 O2 Delivery: Room Air - Course Nursing assessment & vital signs reviewed: Yes - Progress Progress: improved, re-examined Counseled pt/family regarding: diagnosis, need for follow-up Medical Desision Making - Diagnostic Testing Diagnostic test were ordered, analyzed, and reviewed by me: No - Risk of complications Low Risk: Low risk of morbidity from additional dx testing or treatment - Departure Departure Disposition: Home Clinical Impression: replacement of J tube part. Condition: Good Critical Care Time: No Referrals: [facility]OSPITAL,'[facility] [Primary Care Provider] - Follow up/PCP as directed Additional Instructions: Follow-up with your for replacement part as planned, return meantime if any symptoms or concerns.
== END 2022-08-12 22:37 | disposition home or self-care (01) ==
LOC: ED 21:24
DX: T85.618A Breakdown (mechanical) of other specified internal prosthetic devices, implants and grafts, initial encounter (principal); E78.5 Hyperlipidemia, unspecified; I10 Essential (primary) hypertension; Z79.02 Long term (current) use of antithrombotics/antiplatelets; Z79.899 Other long term (current) drug therapy; Z72.0 Tobacco use
CPT/HCPCS: 99281

== ENCOUNTER 2022-09-08 01:06 | Emergency (ER) | payer OTHER ==
[2022-09-08 01:36] VITALS: TEMP 97.8
[2022-09-08] MEDS ORDERED: Hydromorphone 1 mg/ml Injection IV ONE ×3 (01:45→05:29)
[2022-09-08] MEDS ORDERED: Zofran 4 MG/2 ML VIAL IV ONE (01:45)
--- NOTE | 2022-09-08 01:50 | ERPHSYRPT ---
- History of Present Illness Time Seen by Provider: 09/08/22 01:45 Historian: patient Exam Limitations: no limitations Patient Subjective Stated Complaint: pt states he has been having increased pain since he had a new drainage tube placed. states he been having a sour smell from around tube and drainage in drainage bag has a foul odor. states pain tonight is 9/10, describes as sharp and burning. Triage Nursing Assessment: pt alert and oriented, answers questions approp. pt ambulates into room with slow steady gait. respirations nonlabored. skin warm and dry. drsg to rt abd cdi. drainage bag with celarbrown/yellow liquid. Physician History: 56-year-old male with history of coronary artery disease status post stenting, tobacco abuse, J-tube draining gallbladder presented in the ER with increased right-sided pain with foul-smelling drainage for the last couple of days. Pain got really worse tonight, rates 9/10 intensity without associated nausea or vomiting. No fever or chills reported. Allergies/Adverse Reactions: hydrocodone bitartrate [From Vicodin] Allergy (Verified 09/08/22 01:36) Rash Iodinated Contrast Media Allergy (Verified 09/08/22 01:36) ketorolac [From Toradol] Allergy (Verified 09/08/22 01:36) Penicillins Allergy (Verified 09/08/22 01:36) venlafaxine Allergy (Verified 09/08/22 01:36) codeine Adverse Reaction (Verified 09/08/22 01:36) codeine phosphate [From Codar D] Adverse Reaction (Verified 09/08/22 01:36) morphine Adverse Reaction (Verified 09/08/22 01:36) pseudoephedrine HCl [From Codar D] Adverse Reaction (Verified 09/08/22 01:36) Home Medications: Aspirin 81 gm Chew [Baby Aspirin 81 mg Chew] 81 mg PO DAILY 04/11/14 [History] Albuterol Sulfate [Proair Digihaler] 2 puff IH QID PRN PRN 09/11/20 [History] Atorvastatin Calcium 1 tab PO HS 09/11/20 [History] Budesonide/Formoterol Fumarate [Budesonide-Formoterol 160-4.5] 2 puffs IH BID 09/11/20 [History] Fluticasone Propionate [Flovent Diskus] 2 sprays IN DAILY 09/11/20 [History] PANTOPRAZOLE 40 mg Tablet [Protonix 40MG Tablet] 80 mg PO BID 09/11/20 [History] Ticagrelor [Brilinta] 90 mg PO BID 09/11/20 [History] Tiotropium [place] Inhaler [Spiriva 18 Mcg/Cap Inhaler] 2 puffs IH DAILY 09/11/20 [History] clonazePAM [Clonazepam] 2 mg PO UD PRN 09/11/20 [History] lisinopriL [Lisinopril] 2.5 mg PO BID 09/11/20 [History] Cholecalciferol (Vitamin D3) [Vitamin D3] 125 mcg PO DAILY 03/22/21 [History] Cyanocobalamin 500 Mcg [Vitamin B-12 500 MCG] 1,000 mcg PO DAILY 03/22/21 [History] Ranolazine 500 MG [Ranexa 500 MG] 500 mg PO BID 03/22/21 [History] Acetaminophen 500 mg [Tylenol Extra Strength 500 mg] 2,500 mg PO TID 03/30/21 [History] Nitroglycerin [Nitrolingual] 1 gm TL Q5MIN PRN MR X 3 PRN 03/30/21 [History] Hx Tetanus, Diphtheria Vaccination/Date Given: Yes Hx Influenza Vaccination/Date Given: No Hx Pneumococcal Vaccination/Date Given: No Travel Risk - International Travel Have you traveled outside of the country in past 3 weeks: No - Coronavirus Screening Are you exhibiting any of the following symptoms?: No Close contact with a COVID-19 positive Pt in past 14-21 Days: No - Vaccine Status Have you recieved a Covid-19 vaccination: Yes 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[employer] - Vaccination Dates Date of 2cond Vaccination (if applicable): 2020 - Review of Systems Constitutional: No Symptoms Eyes: No Symptoms Ears, Nose, & Throat: No Symptoms Respiratory: Dyspnea Cardiac: No Symptoms Abdominal/Gastrointestinal: Abdominal Pain Musculoskeletal: No Symptoms Skin: No Symptoms Neurological: No Symptoms Endocrine: No Symptoms - Past Medical History Pertinent Past Medical History: Yes Neurological History: Peripheral Neuropathy, TIA ENT History: No Pertinent History Cardiac History: Aneurysm, Coronary Artery Disease, High Cholesterol, Hypertension, Myocardial Infarction ([place]) Respiratory History: Asthma, COPD, Emphysema, Pneumonia, Sleep Apnea, Other Endocrine Medical History: Hypothyroidism Musculoskeletal History: Degenerative Disk Disease GI Medical History: Gallbladder Disease, Hernia History: Other Psycho-Social History: Anxiety Male Reproductive Disorders: No Pertinent History Other Medical History: CHRONIC BACK PAIN, carotid artery disease. KIDNEY STONES - Past Surgical History Past Surgical History: Yes Neuro Surgical History: No Pertinent History Cardiac: Cardiac Catheterization, Cardiac Stent Respiratory: Other Gastrointestinal: No Pertinent History Genitourinary: No Pertinent History Musculoskeletal: Orthopedic Surgery Male Surgical History: No Pertinent History Other Surgical History: R lung cut a 1/4 inch off the top. 1988, back surgery , inspire placement, rt leg fx. drain placed for bile drainage - Social History Smoking Status: Current every day smoker How long have you smoked: 48 yrs Exposure to second hand smoke: No Drug Use: none Patient Lives Alone: No - Nursing Vital Signs Nursing Vital Signs: Initial Vital Signs Temperature 97.8 F 09/08/22 01:15 Pulse Rate 90 09/08/22 01:15 Respiratory Rate 18 09/08/22 01:15 Blood Pressure 131/85 09/08/22 01:15 O2 Sat by Pulse Oximetry 98 09/08/22 01:15 Pain Scale Pain Intensity 7 - Physical Exam General Appearance: no apparent distress, alert Eye Exam: PERRL/EOMI Ears, Nose, Throat Exam: normal ENT inspection Neck Exam: normal inspection, supple, full range of motion Respiratory Exam: normal breath sounds, lungs clear Cardiovascular Exam: regular rate/rhythm, normal heart sounds Gastrointestinal/Abdomen Exam: soft, normal bowel sounds, tenderness (Right side at J-tube insertion site) Back Exam: normal inspection Extremity Exam: normal inspection, normal range of motion Neurologic Exam: alert, oriented x 3, cooperative Skin Exam: normal color SpO2 Interpretation: normal SpO2: 98 O2 Delivery: Room Air Ordered Tests: Active Orders 24 hr Category Date Time Status IV Insertion STAT Care 09/08/22 01:45 Active NPO (ED) STAT Care 09/08/22 01:45 Active ABDOMEN AND PELVIS W/0 CONTRAS [CT] Stat Exams 09/08/22 02:37 Completed CBC W DIFF Stat Lab 09/08/22 02:00 Completed CMP Stat Lab 09/08/22 02:00 Completed CULTURE,URINE Stat Lab 09/08/22 04:13 Received LIPASE Stat Lab 09/08/22 02:00 Completed Lactic Acid Stat Lab 09/08/22 02:13 Completed UA W/RFX UR CULTURE Stat Lab 09/08/22 04:13 Completed Medication Summary Discontinued Medications Generic Name Dose Route Start Last Admin Trade Name Perezq PRN Reason Stop Dose Admin Hydromorphone HCl 0.5 mg 09/08/22 01:45 09/08/22 02:01 Hydromorphone 1 Mg/1ml Inj IV 09/08/22 01:46 0.5 mg STAT ONE Administration Hydromorphone HCl Confirm 09/08/22 01:59 Hydromorphone 1 Mg/1ml Inj Administered 09/08/22 02:00 Dose 1 mg .ROUTE .STK-MED ONE Hydromorphone HCl Confirm 09/08/22 03:28 Hydromorphone 1 Mg/1ml Inj Administered 09/08/22 03:29 Dose 1 mg .ROUTE .STK-MED ONE Ondansetron HCl 4 mg 09/08/22 01:45 09/08/22 02:01 Ondansetron Hcl 4 Mg/2 Ml Vial IV 09/08/22 01:46 4 mg STAT ONE Administration Ondansetron HCl Confirm 09/08/22 01:59 Ondansetron Hcl 4 Mg/2 Ml Vial Administered 09/08/22 02:00 Dose 4 mg .ROUTE .STK-MED ONE Lab/Rad Data: Laboratory Result Diagrams 09/08/22 02:00 09/08/22 02:00 Laboratory Results 09/08/22 09/08/22 09/08/22 Range/Units 04:13 02:13 02:00 WBC (4.0-10.5) x10^3/uL RBC (4.1-5.6) x10^6/uL Hgb (12.5-18.0) g/dL Hct (42-50) % MCV (78-100) fL MCH (26-32) pg MCHC (32-36) g/dL RDW (11.5-14.0) % Plt Count (150-450) x10^3/uL MPV (7.5-11.0) fL Gran % (36.0-66.0) % Immature Gran % (Auto) (0.00-0.4) % Nucleat RBC Rel Count (0.00-0.1) % Eos # (Auto) (0-0.5) x10^3/uL Immature Gran # (Auto) (0.00-0.03) x10^3u/L Absolute Lymphs (auto) (1.0-4.6) x10^3/uL Absolute Monos (auto) (0.0-1.3) x10^3/uL Absolute Nucleated RBC (0.00-0.01) x10^3u/L Lymphocytes % (24.0-44.0) % Monocytes % (0.0-12.0) % Eosinophils % (0.00-5.0) % Basophils % (0.0-0.4) % Absolute Granulocytes (1.4-6.9) x10^3/uL Basophils # (0-0.4) x10^3/uL Sodium 142 (137-145) mmol/L Potassium 3.9 (3.5-5.1) mmol/L Chloride 107 (98-107) mmol/L Carbon Dioxide 26 (22-30) mmol/L Anion Gap 12.6 (5-15) MEQ/L BUN 15 (9-20) mg/dL Creatinine 1.30 H (0.66-1.25) mg/dL Estimated GFR > 60.0 ML/MIN Glucose 108 H (74-106) mg/dL Lactic Acid 1.3 (0.4-2.0) Calcium 8.7 (8.4-10.2) mg/dL Total Bilirubin 0.30 (0.2-1.3) mg/dL AST 28 (17-59) U/L ALT 15 (0-50) U/L Alkaline Phosphatase 89 (38-126) U/L Serum Total Protein 7.4 (6.3-8.2) g/dL Albumin 3.7 (3.5-5.0) g/dL Lipase 56 (23-300) U/L Urine Color Dark Yellow (Yellow) Urine Appearance Clear (Clear) Urine pH 5.5 (4.6-8.0) Ur Specific [place] >=1.030 A (1.005-1.030) Urine Protein Trace A (Negative) Urine Glucose (UA) Negative (Negative) mg/dL Urine Ketones Trace A (Negative) Urine Blood Trace (Negative) Urine Nitrite Negative (Negative) Urine Bilirubin Negative (Negative) Urine Urobilinogen 1.0 A (0.2) mg/dL Ur Leukocyte Esterase Negative (Negative) U Hyaline Cast (Auto) 3-5 A (0-2) /LPF Urine Microscopic RBC 3-5 (0-5) /HPF Urine Microscopic WBC 0-2 (0-5) /HPF Ur Epithelial Cells None Seen (None Seen) /HPF Urine Bacteria None Seen (None Seen) /HPF Urine Culture Reflexed YES (NO) 09/08/22 Range/Units 02:00 WBC 8.7 (4.0-10.5) x10^3/uL RBC 3.68 L (4.1-5.6) x10^6/uL Hgb 11.2 L (12.5-18.0) g/dL Hct 35.6 L (42-50) % MCV 96.7 (78-100) fL MCH 30.4 (26-32) pg MCHC 31.5 L (32-36) g/dL RDW 14.6 H (11.5-14.0) % Plt Count 167 (150-450) x10^3/uL MPV 9.5 (7.5-11.0) fL Gran % 75.3 H (36.0-66.0) % Immature Gran % (Auto) 0.2 (0.00-0.4) % Nucleat RBC Rel Count 0.0 (0.00-0.1) % Eos # (Auto) 0.12 (0-0.5) x10^3/uL Immature Gran # (Auto) 0.02 (0.00-0.03) x10^3u/L Absolute Lymphs (auto) 1.47 (1.0-4.6) x10^3/uL Absolute Monos (auto) 0.51 (0.0-1.3) x10^3/uL Absolute Nucleated RBC 0.00 (0.00-0.01) x10^3u/L Lymphocytes % 16.9 L (24.0-44.0) % Monocytes % 5.9 (0.0-12.0) % Eosinophils % 1.4 (0.00-5.0) % Basophils % 0.3 (0.0-0.4) % Absolute Granulocytes 6.55 (1.4-6.9) x10^3/uL Basophils # 0.03 (0-0.4) x10^3/uL Sodium (137-145) mmol/L Potassium (3.5-5.1) mmol/L Chloride (98-107) mmol/L Carbon Dioxide (22-30) mmol/L Anion Gap (5-15) MEQ/L BUN (9-20) mg/dL Creatinine (0.66-1.25) mg/dL Estimated GFR ML/MIN Glucose (74-106) mg/dL Lactic Acid (0.4-2.0) Calcium (8.4-10.2) mg/dL Total Bilirubin (0.2-1.3) mg/dL AST (17-59) U/L ALT (0-50) U/L Alkaline Phosphatase (38-126) U/L Serum Total Protein (6.3-8.2) g/dL Albumin (3.5-5.0) g/dL Lipase (23-300) U/L Urine Color (Yellow) Urine Appearance (Clear) Urine pH (4.6-8.0) Ur Specific [place] (1.005-1.030) Urine Protein (Negative) Urine Glucose (UA) (Negative) mg/dL Urine Ketones (Negative) Urine Blood (Negative) Urine Nitrite (Negative) Urine Bilirubin (Negative) Urine Urobilinogen (0.2) mg/dL Ur Leukocyte Esterase (Negative) U Hyaline Cast (Auto) (0-2) /LPF Urine Microscopic RBC (0-5) /HPF Urine Microscopic WBC (0-5) /HPF Ur Epithelial Cells (None Seen) /HPF Urine Bacteria (None Seen) /HPF Urine Culture Reflexed (NO) - Progress Progress: improved, re-examined Progress Note: 09/08/22 01:49 56-year-old male with history of coronary artery disease status post stenting, tobacco abuse, J-tube draining gallbladder presented in the ER with increased right-sided pain with foul-smelling drainage for the last couple of days. Pain got really worse tonight, rates 9/10 intensity without associated nausea or vomiting. No fever or chills reported. 6 we will give pain medicine for symptomatic relief, will obtain CT abdomen pelvis along with acute abdomen labs. 09/08/22 04:47 Patient is feeling much better after pain medications. Work-up showed normal white count, fairly unremarkable chemistries. CT abdomen pelvis without contrast showed contracted gallbladder with percutaneous tube in the lumen. No intra-abdominal leak or any other acute findings suggested causing today's symptoms. I believe patient has chronic pain, do not think needs emergent surgical consultation. I will discharge him and have [facility] Discussed signs symptoms of worsening needing return to ER which he seems understanding. Counseled pt/family regarding: lab results, diagnosis, need for follow-up, rad results Medical Desision Making - Independent Historian Additional History obtained from: Spouse - Diagnostic Testing Diagnostic test were ordered, analyzed, and reviewed by me: Yes Radiological Interpretation: Reviewed by me - Departure Departure Disposition: Home Clinical Impression: Right sided abdominal pain Condition: Stable Critical Care Time: No Referrals: [facility]OSPITAL,'S [Primary Care Provider] - Follow up/PCP as directed (Call today for appointment for reevaluation) Instructions: Severe Abdominal Pain, Adult (DC) Additional Instructions: Take pain medications as needed. Follow-up with your primary surgeon at the [facility] for reevaluation. Return to ER for any worsening.
[2022-09-08] MEDS ORDERED: Hydromorphone 1 mg/ml Injection ONE ×3 (01:59→05:17)
[2022-09-08] MEDS ORDERED: Zofran 4 MG/2 ML VIAL ONE (01:59)
[2022-09-08 02:04] LABS: Absolute Neutrophil Ct (ANC) 6.55 x10^3/uL (1.4-6.9); BASOPHIL % 0.3 % (0.0-0.4); Basophil (Absolute #) 0.03 x10^3/uL (0-0.4); Eosinophil % 1.4 % (0.00-5.0); Eosinophil (Absolute #) 0.12 x10^3/uL (0-0.5); Hematocrit 35.6 % (42-50); Hemoglobin 11.2 g/dL (12.5-18.0); IMMATURE GRAN # 0.02 x10^3u/L (0.00-0.03); IMMATURE GRAN % 0.2 % (0.00-0.4); Lymphocyte (Absolute #) 1.47 x10^3/uL (1.0-4.6); Lymphocytes % 16.9 % (24.0-44.0); Mean Cell Volume 96.7 fL (78-100); Mean Corpuscular Hemoglobin 30.4 pg (26-32); Mean Corpuscular Hgb Concent. 31.5 g/dL (32-36); Mean Platelet Volume 9.5 fL (7.5-11.0); Monocyte (Absolute #) 0.51 x10^3/uL (0.0-1.3); Monocytes % 5.9 % (0.0-12.0); Neutrophil % 75.3 % (36.0-66.0); Platelet Count 167 x10^3/uL (150-450); Red Blood Count 3.68 x10^6/uL (4.1-5.6); Red Cell Distribution Width 14.6 % (11.5-14.0); White Blood Count 8.7 x10^3/uL (4.0-10.5)
[2022-09-08 02:22] LABS: ALBUMIN 3.7 g/dL (3.5-5.0); ALKALINE PHOSPHATASE 89 U/L (38-126); ANION GAP 12.6 MEQ/L (5-15); BLOOD UREA NITROGEN 15 mg/dL (9-20); CHLORIDE 107 mmol/L (98-107); Calcium 8.7 mg/dL (8.4-10.2); Carbon Dioxide 26 mmol/L (22-30); EST GLOMERULAR FILTRATION RATE > 60.0 ML/MIN; Glucose 108 mg/dL (74-106); LIPASE 56 U/L (23-300); Potassium 3.9 mmol/L (3.5-5.1); SGOT/AST 28 U/L (17-59); SGPT/ALT 15 U/L (0-50); SODIUM 142 mmol/L (137-145); Total Protein 7.4 g/dL (6.3-8.2)
--- NOTE | 2022-09-08 03:21 | XRAY ---
CLINICAL HISTORY:right side pain , COMPARISON:07/10/2022. TECHNIQUES:CT scan of the abdomen and pelvis without intravenous contrast administration. FINDINGS: The GB is contracted over a percutaneous drainage catheter inside its lumen. The liver is of average size, regular contour and homogeneous texture with no focal lesion could be detected on non-contrast basis. There are few tiny calcific foci within its parenchyma suggestive of old granulomatous infection. No intra hepatic biliary radical dilatation. The spleen is of average size and shape with homogeneous parenchyma and no focal lesion could be noted on non-contrast basis. There are few tiny calcific foci scattered within its parenchyma. Both kidneys are of normal size, shape and parenchymal thickness with no back pressure changes or space occupying lesions on non-contrast basis. There are two tiny stones at the upper calyx of the left kidney and two tiny stones in the lower calyx of the right kidney, 1-2 mm in size. The other retroperitoneal structures including the pancreas and adrenal glands are grossly within normal limits. No significant lymph alyssa enlargement or ascetic fluid collection. The prostate is of average size and shape. Normal filling of the urinary bladder with no stones, masses, or diverticula. There is focal aneurysmal dilatation of the infra renal abdominal aorta is noted measuring 3 x 2.5 cm. No evidence of leak or rupture. There is diffuse calcification of the aorta and iliac arteries. Bone window settings showed posterior spinal fixation and degenerative changes of the lumbar spine. Lung window settings showed normal appearance of both basal lung segments. IMPRESSION: Contracted GB over a percutaneous drainage catheter. A stable finding. Hepatic and splenic parenchymal calcification likely from an old granulomatous infection. A stable finding. Bilateral renal small non-obstructive stones. A new finding. 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 A stable finding. Electronically Signed by: Cherelle Elise MD. (09/08/2022 02:07:41 [employer])
[2022-09-08 04:17] VITALS: RESP 16
[2022-09-08 04:25] LABS: Appearance Clear (Clear); Bacteria None Seen /HPF (None Seen); Bilirubin Negative (Negative); Blood Trace (Negative); Epithelial Cells None Seen /HPF (None Seen); Glucose, Urine Negative (Negative); Ketones Trace (Negative); Leukocyte Esterase Negative (Negative); Nitrite Negative (Negative); Ph 5.5 (4.6-8.0); Protein,Urine Dip Trace (Negative); Specific Gravity >=1.030 (1.005-1.030); WBC 0-2 /HPF (0-5)
[2022-09-08 04:28] LABS: ADD URINE CULTURE? YES (NO)
[2022-09-08 05:38] VITALS: BP 145/79; PULSE 74; O2SAT 96
== END 2022-09-08 05:39 | disposition home or self-care (01) ==
LOC: ED 01:06
DX: R10.31 Right lower quadrant pain (principal); R10.11 Right upper quadrant pain; E78.5 Hyperlipidemia, unspecified; I10 Essential (primary) hypertension; Z79.02 Long term (current) use of antithrombotics/antiplatelets; Z79.899 Other long term (current) drug therapy; Z72.0 Tobacco use
CPT/HCPCS: 36000; 36415; 74176; 80053; 81001; 83605; 83690; 85025; 87086; 96374; 96375; 96376; 99284; J1170; J2405

== ENCOUNTER 2022-09-23 00:59 | Emergency (ER) | payer OTHER ==
[2022-09-23 01:41] VITALS: RESP 16; TEMP 97.7
[2022-09-23] MEDS ORDERED: Sodium Chloride 0.9% 1000 ML 1,000 ML IV STA (01:44)
[2022-09-23] MEDS ORDERED: Ketamine HCl 50 MG/ML IV ONE (01:48)
[2022-09-23 02:04] LABS: Absolute Neutrophil Ct (ANC) 3.02 x10^3/uL (1.4-6.9); BASOPHIL % 0.4 % (0.0-0.4); Basophil (Absolute #) 0.02 x10^3/uL (0-0.4); Eosinophil % 1.3 % (0.00-5.0); Eosinophil (Absolute #) 0.06 x10^3/uL (0-0.5); Hematocrit 35.3 % (42-50); Hemoglobin 11.1 g/dL (12.5-18.0); IMMATURE GRAN # 0.01 x10^3u/L (0.00-0.03); IMMATURE GRAN % 0.2 % (0.00-0.4); Lymphocyte (Absolute #) 1.15 x10^3/uL (1.0-4.6); Lymphocytes % 25.5 % (24.0-44.0); Mean Cell Volume 95.9 fL (78-100); Mean Corpuscular Hemoglobin 30.2 pg (26-32); Mean Corpuscular Hgb Concent. 31.4 g/dL (32-36); Monocyte (Absolute #) 0.25 x10^3/uL (0.0-1.3); Monocytes % 5.5 % (0.0-12.0); Neutrophil % 67.1 % (36.0-66.0); Platelet Count 146 x10^3/uL (150-450); Red Blood Count 3.68 x10^6/uL (4.1-5.6); Red Cell Distribution Width 13.9 % (11.5-14.0); White Blood Count 4.5 x10^3/uL (4.0-10.5)
[2022-09-23] MEDS ORDERED: Ketamine HCl 50 MG/ML ONE (02:09)
[2022-09-23] MEDS ORDERED: Sodium Chloride 0.9% 1000 ML 1,000 ML ONE (02:09)
[2022-09-23 02:19] LABS: ALBUMIN 3.6 g/dL (3.5-5.0); ALKALINE PHOSPHATASE 95 U/L (38-126); ANION GAP 13.7 MEQ/L (5-15); BLOOD UREA NITROGEN 13 mg/dL (9-20); CHLORIDE 106 mmol/L (98-107); Calcium 8.7 mg/dL (8.4-10.2); Carbon Dioxide 23 mmol/L (22-30); Creatinine 1 1.17 mg/dL (0.66-1.25); EST GLOMERULAR FILTRATION RATE > 60.0 ML/MIN; Glucose 98 mg/dL (74-106); LIPASE 46 U/L (23-300); Potassium 3.6 mmol/L (3.5-5.1); SGOT/AST 25 U/L (17-59); SGPT/ALT 14 U/L (0-50); SODIUM 139 mmol/L (137-145); Total Protein 7.1 g/dL (6.3-8.2)
[2022-09-23] MEDS ORDERED: Hydromorphone 1 mg/ml Injection IV ONE ×3 (03:01→05:29)
[2022-09-23] MEDS ORDERED: Hydromorphone 1 mg/ml Injection ONE ×3 (03:06→05:30)
--- NOTE | 2022-09-23 03:27 | ERPHSYRPT ---
- History of Present Illness Time Seen by Provider: 09/23/22 03:19 Historian: patient Exam Limitations: no limitations Patient Subjective Stated Complaint: pt states I am having burning pain around my gallbladder. I have to keep this drain in for another 2 weeks. Triage Nursing Assessment: pt ambulated into the er; pt is axo x4; c/o RUQ pain; abd is round, soft; active bowel sounds in all quads; denies N/V/D; skin PDW; no respiratory distress present; vitals wnl Physician History: Patient is a 56-year-old male presents to our ED for evaluation of right upper quadrant pain. Patient has a inflamed gallbladder. Patient states due to a heart condition patient is unable to have a cholecystectomy. Patient receives his care at the NH. Patient states that a general surgeon transiently placed a drain at the level of the gallbladder to temporize patient until he is cleared by cardiology for a cholecystectomy. In the interim patient has been experiencing bouts of intermittent pain. Patient describes his current pain as burning. No trauma. No fever. No nausea vomiting or diaphoresis. Patient has come to this ER several times for the same complaint. Patient requesting Dilaudid for pain control. Patient received most of his care at the NH. Patient states his symptoms are similar to his frequent episodes of right upper quadrant pain. Patient otherwise feels well. He voices no other complaints or concerns at this time. Portions of this note were created with voice recognition technology. There may be grammatical, spelling, punctuation or sound alike errors Timing/Duration: today Activities at Onset: none Quality: aching Abdominal Pain Onset Location: RUQ Pain Radiation: no radiation Severity of Pain-Max: moderate Severity of Pain-Current: mild Modifying Factors: Improves With: nothing Associated Symptoms: denies symptoms Previous symptoms: same symptoms as today Allergies/Adverse Reactions: hydrocodone bitartrate [From Vicodin] Allergy (Verified 09/23/22 01:20) Rash Iodinated Contrast Media Allergy (Verified 09/23/22 01:20) ketorolac [From Toradol] Allergy (Verified 09/23/22 01:20) Penicillins Allergy (Verified 09/23/22 01:20) venlafaxine Allergy (Verified 09/23/22 01:20) codeine Adverse Reaction (Verified 09/23/22 01:20) codeine phosphate [From Codar D] Adverse Reaction (Verified 09/23/22 01:20) morphine Adverse Reaction (Verified 09/23/22 01:20) pseudoephedrine HCl [From Suda D] Adverse Reaction (Verified 09/23/22 01:20) Home Medications: Aspirin 81 gm Chew [Baby Aspirin 81 mg Chew] 81 mg PO DAILY 04/11/14 [History] Albuterol Sulfate [Proair Digihaler] 2 puff IH QID PRN PRN 09/11/20 [History] Atorvastatin Calcium 1 tab PO HS 09/11/20 [History] Budesonide/Formoterol Fumarate [Budesonide-Formoterol 160-4.5] 2 puffs IH BID 09/11/20 [History] Fluticasone Propionate [Flovent Diskus] 2 sprays IN DAILY 09/11/20 [History] PANTOPRAZOLE 40 mg Tablet [Protonix 40MG Tablet] 80 mg PO BID 09/11/20 [History] Ticagrelor [Brilinta] 90 mg PO BID 09/11/20 [History] Tiotropium [place] Inhaler [Spiriva 18 Mcg/Cap Inhaler] 2 puffs IH DAILY 09/11/20 [History] clonazePAM [Clonazepam] 2 mg PO UD PRN 09/11/20 [History] lisinopriL [Lisinopril] 2.5 mg PO BID 09/11/20 [History] Cholecalciferol (Vitamin D3) [Vitamin D3] 125 mcg PO DAILY 03/22/21 [History] Cyanocobalamin 500 Mcg [Vitamin B-12 500 MCG] 1,000 mcg PO DAILY 03/22/21 [History] Ranolazine 500 MG [Ranexa 500 MG] 500 mg PO BID 03/22/21 [History] Acetaminophen 500 mg [Tylenol Extra Strength 500 mg] 2,500 mg PO TID 03/30/21 [History] Nitroglycerin [Nitrolingual] 1 gm TL Q5MIN PRN MR X 3 PRN 03/30/21 [History] Hx Tetanus, Diphtheria Vaccination/Date Given: Yes Hx Influenza Vaccination/Date Given: No Hx Pneumococcal Vaccination/Date Given: No Travel Risk - International Travel Have you traveled outside of the country in past 3 weeks: No - Coronavirus Screening Are you exhibiting any of the following symptoms?: No Close contact with a COVID-19 positive Pt in past 14-21 Days: No - Vaccine Status Have you recieved a Covid-19 vaccination: Yes 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 - Vaccination Dates Date of 2cond Vaccination (if applicable): 2020 - Review of Systems Constitutional: No Symptoms, No Fever, No Chills Eyes: No Symptoms Ears, Nose, & Throat: No Symptoms Respiratory: No Symptoms, No Cough, No Dyspnea Cardiac: No Symptoms, No Chest Pain, No Edema, No Syncope Abdominal/Gastrointestinal: No Symptoms, No Abdominal Pain, No Nausea, No Vomiting, No Diarrhea Genitourinary Symptoms: No Symptoms, No Dysuria Musculoskeletal: No Symptoms, No Back Pain, No Neck Pain Skin: No Symptoms, No Rash Neurological: No Symptoms, No Dizziness, No Focal Weakness, No Sensory Changes Psychological: No Symptoms Endocrine: No Symptoms Hematologic/Lymphatic: No Symptoms Immunological/Allergic: No Symptoms All Other Systems: Reviewed and Negative - Past Medical History Pertinent Past Medical History: Yes Neurological History: Peripheral Neuropathy, TIA ENT History: No Pertinent History Cardiac History: Aneurysm, Coronary Artery Disease, High Cholesterol, Hypertens ion, Myocardial Infarction ([place]) Respiratory History: Asthma, COPD, Emphysema, Pneumonia, Sleep Apnea, Other Endocrine Medical History: Hypothyroidism Musculoskeletal History: Degenerative Disk Disease GI Medical History: Gallbladder Disease, Hernia History: Other Psycho-Social History: Anxiety Male Reproductive Disorders: No Pertinent History Other Medical History: CHRONIC BACK PAIN, carotid artery disease. KIDNEY STONES - Past Surgical History Past Surgical History: Yes Neuro Surgical History: No Pertinent History Cardiac: Cardiac Catheterization, Cardiac Stent Respiratory: Other Gastrointestinal: No Pertinent History Genitourinary: No Pertinent History Musculoskeletal: Orthopedic Surgery Male Surgical History: No Pertinent History Other Surgical History: R lung cut a 1/4 inch off the top. 1988, back surgery , inspire placement, rt leg fx. drain placed for bile drainage - Social History Smoking Status: Current every day smoker How long have you smoked: 48 yrs Exposure to second hand smoke: No Drug Use: none Patient Lives Alone: No - Nursing Vital Signs Nursing Vital Signs: Initial Vital Signs Blood Pressure 133/82 09/23/22 01:19 Pain Scale Pain Intensity 5 - Physical Exam General Appearance: no apparent distress, alert Eye Exam: PERRL/EOMI, eyes nml inspection Ears, Nose, Throat Exam: normal ENT inspection, pharynx normal, moist mucous membranes Neck Exam: normal inspection, non-tender, supple, full range of motion Respiratory Exam: normal breath sounds, lungs clear, No respiratory distress Cardiovascular Exam: regular rate/rhythm, normal heart sounds Gastrointestinal/Abdomen Exam: soft, other (Intact right upper quadrant drain), No tenderness, No mass Back Exam: normal inspection, normal range of motion, No CVA tenderness, No vertebral tenderness Extremity Exam: normal inspection, normal range of motion, pelvis stable Neurologic Exam: alert, oriented x 3, cooperative, normal mood/affect, nml cerebellar function, sensation nml, No motor deficits Skin Exam: normal color, warm, dry Lymphatic Exam: No adenopathy SpO2 Interpretation: normal SpO2: 96 O2 Delivery: Room Air - Course Nursing assessment & vital signs reviewed: Yes - CT Exams Abdomen/Pelvis CT Interpretation: Tele-radiologist Report (No significant interval change from prior CT. No acute intra-abdominal or pelvic pathology. Redemonstration of infrarenal aortic aneurysm. Redemonstration of renal concretions. No obstructive uropathy. Small hiatal hernia) Ordered Tests: Active Orders 24 hr Category Date Time Status IV Insertion STAT Care 09/23/22 01:44 Active ABDOMEN AND PELVIS W/0 CONTRAS [CT] Stat Exams 09/23/22 01:48 Completed CBC W DIFF Stat Lab 09/23/22 02:02 Completed CMP Stat Lab 09/23/22 02:02 Completed LIPASE Stat Lab 09/23/22 02:02 Completed TROPONIN Q4H Lab 09/23/22 02:02 Completed TROPONIN Q4H Lab 09/23/22 05:45 Ordered TROPONIN Q4H Lab 09/23/22 09:45 Ordered Medication Summary Discontinued Medications Generic Name Dose Route Start Last Admin Trade Name Freq PRN Reason Stop Dose Admin Hydromorphone HCl 1 mg 09/23/22 03:01 09/23/22 03:07 Hydromorphone 1 Mg/1ml Inj IV 09/23/22 03:02 1 mg STAT ONE Administration Hydromorphone HCl Confirm 09/23/22 03:06 Hydromorphone 1 Mg/1ml Inj Administered 09/23/22 03:07 Dose 1 mg .ROUTE .STK-MED ONE Hydromorphone HCl 1 mg 09/23/22 03:27 09/23/22 03:38 Hydromorphone 1 Mg/1ml Inj IV 09/23/22 03:28 1 mg STAT ONE Administration Hydromorphone HCl Confirm 09/23/22 03:37 Hydromorphone 1 Mg/1ml Inj Administered 09/23/22 03:38 Dose 1 mg .ROUTE .STK-MED ONE Sodium Chloride 1,000 mls @ 999 mls/hr 09/23/22 01:44 09/23/22 03:23 Sodium Chloride 0.9% 1000 Ml IV 09/23/22 02:44 Infused .Q1H1M STA Infusion Sodium Chloride Confirm 09/23/22 02:09 Sodium Chloride 0.9% 1000 Ml Administered 09/23/22 02:10 Dose 1,000 mls @ ud .ROUTE .STK-MED ONE Ketamine HCl 10 mg 09/23/22 01:48 09/23/22 02:10 Ketamine Hcl 50 Mg/Ml IV 09/23/22 01:49 10 mg STAT ONE Administration Ketamine HCl Confirm 09/23/22 02:09 Ketamine Hcl 50 Mg/Ml Administered 09/23/22 02:10 Dose 1 mg .ROUTE .STK-MED ONE Ondansetron HCl 4 mg 09/23/22 04:45 09/23/22 04:48 Ondansetron Hcl 4 Mg/2 Ml Vial IV 09/23/22 04:46 4 mg STAT ONE Administration Ondansetron HCl Confirm 09/23/22 04:46 Ondansetron Hcl 4 Mg/2 Ml Vial Administered 09/23/22 04:47 Dose 4 mg .ROUTE .STK-MED ONE Lab/Rad Data: Laboratory Result Diagrams 09/23/22 02:02 09/23/22 02:02 Laboratory Results 09/23/22 09/23/22 09/23/22 Range/Units 02:02 02:02 02:02 WBC 4.5 (4.0-10.5) x10^3/uL RBC 3.68 L (4.1-5.6) x10^6/uL Hgb 11.1 L (12.5-18.0) g/dL Hct 35.3 L (42-50) % MCV 95.9 (78-100) fL MCH 30.2 (26-32) pg MCHC 31.4 L (32-36) g/dL RDW 13.9 (11.5-14.0) % Plt Count 146 L (150-450) x10^3/uL MPV 9.0 (7.5-11.0) fL Gran % 67.1 H (36.0-66.0) % Immature Gran % (Auto) 0.2 (0.00-0.4) % Nucleat RBC Rel Count 0.0 (0.00-0.1) % Eos # (Auto) 0.06 (0-0.5) x10^3/uL Immature Gran # (Auto) 0.01 (0.00-0.03) x10^3u/L Absolute Lymphs (auto) 1.15 (1.0-4.6) x10^3/uL Absolute Monos (auto) 0.25 (0.0-1.3) x10^3/uL Absolute Nucleated RBC 0.00 (0.00-0.01) x10^3u/L Lymphocytes % 25.5 (24.0-44.0) % Monocytes % 5.5 (0.0-12.0) % Eosinophils % 1.3 (0.00-5.0) % Basophils % 0.4 (0.0-0.4) % Absolute Granulocytes 3.02 (1.4-6.9) x10^3/uL Basophils # 0.02 (0-0.4) x10^3/uL Sodium 139 (137-145) mmol/L Potassium 3.6 (3.5-5.1) mmol/L Chloride 106 (98-107) mmol/L Carbon Dioxide 23 (22-30) mmol/L Anion Gap 13.7 (5-15) MEQ/L BUN 13 (9-20) mg/dL Creatinine 1.17 (0.66-1.25) mg/dL Estimated GFR > 60.0 ML/MIN Glucose 98 (74-106) mg/dL Calcium 8.7 (8.4-10.2) mg/dL Total Bilirubin 0.40 (0.2-1.3) mg/dL AST 25 (17-59) U/L ALT 14 (0-50) U/L Alkaline Phosphatase 95 (38-126) U/L Troponin I < 0.012 (0.000-0.034) ng/mL Serum Total Protein 7.1 (6.3-8.2) g/dL Albumin 3.6 (3.5-5.0) g/dL Lipase 46 (23-300) U/L - Progress Progress: improved Progress Note: 56-year-old male presents to our ED with right upper quadrant pain. Physical exam reveals drain tube coming from right upper quadrant. Adjacent soft tissue intact. No significant laboratory findings observed. CT scan appears unchanged from previous. Pain well controlled at this time. Patient is ready for discharge. Will discharge home. Patient agrees to follow-up with his primary care doctor within 48 hours for evaluation. Portions of this note were created with voice recognition technology. There may be grammatical, spelling, punctuation or sound alike errors Complexity of problems addressed is moderate acute complicated No critical care time Complexity of data reviewed and analyzed is moderate. Test ordered. Test reviewed. Clinical correlation made between findings and history and physical examination. No significant findings observed. No acute findings observed. Patient will be discharged home. Risk of complication and or risk morbidity/mortality patient management is high. Patient received IV Dilaudid for pain control. Patient be discharged home. Vital stable. Time spent to discharge patient approximately 10 minutes. No social determinants of health presents impede follow-up. Plan of care established for shared decision making. Patient voices no other complaints or concerns at this time. Portions of this note were created with voice recognition technology. There may be grammatical, spelling, punctuation or sound alike errors 09/23/22 05:19 Counseled pt/family regarding: lab results, diagnosis, need for follow-up, rad r esults - Departure Departure Disposition: Home Clinical Impression: Right upper quadrant pain, Diverticulosis, AAA (abdominal aortic aneurysm), Hiatal hernia Condition: Stable Critical Care Time: No Referrals: HOSPITAL,'S [Primary Care Provider] - Follow up/PCP as directed Additional Instructions: Discharge/Care Plan NIDIA KENT JR was seen on 09/23/22 in the Emergency Room. The patient was counseled regarding Diagnosis,Lab results, Imaging studies, need for follow up and when to return to the Emergency Room. Prescriptions given: Discharge Note I have spoken with the patient and/or caregivers. I have explained the patient's condition, diagnosis and treatment plan based on the information available to me at this time. I have answered the patient's and/or caregiver's questions and addressed any concerns. The patient and/or caregivers have as good understanding of the patient's diagnosis, condition and treatment plan as can be expected at this point. The vital signs have been stable. The patient's condition is stable and appropriate for discharge from the emergency department. The patient will pursue further outpatient evaluation with the primary care physician or other designated or consulting physician as outlined in the discharge instructions. The patient and/or caregivers are agreeable to this plan of care and follow-up instructions have been explained in detail. The patient and/or caregivers have received these instruction. The patient/and or caregivers are aware that any significant change in condition or worsening of symptoms should prompt an immediate return to this or the closest emergency department or call 911.
[2022-09-23] MEDS ORDERED: Zofran 4 MG/2 ML VIAL IV ONE (04:45)
[2022-09-23] MEDS ORDERED: Zofran 4 MG/2 ML VIAL ONE (04:46)
--- NOTE | 2022-09-23 05:03 | XRAY ---
CLINICAL HISTORY:pain COMPARISON:CT dated 09/08/2022. TECHNIQUE:CT of the abdomen and pelvis was performed in axial plane with sagittal and coronal reconstructed images without intravenous contrast administration. FINDINGS: The liver is normal in size (14.2 cm), showing few calcific foci involving both lobes of the liver. (? Old calcified granulomas). Gall bladder is partially distended with percutaneous drain catheter inside its lumen. Unremarkable appearing pancreas. No pancreatic mass or ductal dilatation is seen. Spleen is normal in size and shows a few tiny calcific foci within it. The adrenal glands are normal. The kidneys appear unremarkable with no cysts, masses or hydronephrosis. Few renal concretion are seen involving the upper group calyces of the left kidney. Few renal concretion are also seen involving the lower group calyces of the right kidney. IVC is normal. The stomach appears unremarkable. Unremarkable appearing duodenum. Small Bowel and colon are non-distended with no abnormality. Fecal-loaded large bowel loops. Suggestion of few diverticula in the sigmoid colon without evidence of acute diverticulitis. No free air and no ascites. No free intraperitoneal air is seen. The bladder is unremarkable with no stones. Visualized vertebrae shows degenerative changes. Vertebral fixation device seen involving the L4 and L5 lumbar vertebra. Sclerosis of the pedicles and lamina of L4 and L% vertebra doy may represent post intervention changes. Extensive aortic wall calcification is also seen involving its branches. Aneurysmal dilatation of infra renal aorta is noted with maximal luminal diameter -3.1 x2.6 cm. No periaortic collection / leak seen in the present study. Note is made of small hital hernia. Calcified nodule seen involving the right middle lobe. IMPRESSION: 1. No significant interval changes from prior CT. No acute intraabdominal or pelvic pathology. 2. Redemonstration of infrarenal aortic aneurysm noted. 3. Redemonstration of renal concretions.No obstructive uropthay. 4. Small hiatal hernia. Electronically Signed by: Cherelle Elise MD. (09/23/2022 04:01:45 BEE ROBBER)
[2022-09-23 05:13] VITALS: BP 126/80; PULSE 75
[2022-09-23 05:24] VITALS: O2SAT 96
== END 2022-09-23 05:50 | disposition home or self-care (01) ==
LOC: ED 00:59
DX: K57.90 Diverticulosis of intestine, part unspecified, without perforation or abscess without bleeding (principal); I71.40 Abdominal aortic aneurysm, without rupture, unspecified; K44.9 Diaphragmatic hernia without obstruction or gangrene; R10.11 Right upper quadrant pain; E78.5 Hyperlipidemia, unspecified; I10 Essential (primary) hypertension; Z79.899 Other long term (current) drug therapy; Z72.0 Tobacco use
CPT/HCPCS: 36000; 36415; 74176; 80053; 83690; 84484; 85025; 96360; 96374; 96375; 96376; 99284; J1170; J2405

== ENCOUNTER 2022-10-01 22:34 | Emergency (ER) | payer OTHER ==
[2022-10-01] MEDS ORDERED: Sodium Chloride 0.9% 1000 ML 1,000 ML IV STA (23:10)
[2022-10-01] MEDS ORDERED: BENADRYL 50 MG/ML IV ONE (23:10)
[2022-10-01] MEDS ORDERED: Hydromorphone 1 mg/ml Injection IV ONE (23:10)
[2022-10-01 23:24] VITALS: BP 152/83; PULSE 81; RESP 16; TEMP 97.2; O2SAT 97
--- NOTE | 2022-10-01 23:27 | ERPHSYRPT ---
- History of Present Illness Time Seen by Provider: 10/01/22 23:07 Historian: patient Exam Limitations: no limitations Patient Subjective Stated Complaint: pt states burning pain in rt abd around drain site, and brown drainage from drain site Triage Nursing Assessment: pt alert and oriented, answers questions approp. pt ambulates into room with steady gait noted. respirations nonlabored. skin warm and dry. abd soft, pt reprts tenderness to rt abd with palpation. bowel sounds present x4 quads. Physician History: Patient's had intermittent right-sided upper abdominal pain for the last 6 months approximately after having a tube placed after having a heart attack who had pain flareup yesterday with no relief of his symptoms today so came in this evening for further evaluation and management. He states this is the second gallbladder tube that he has had placed since been there for the last 2.5 months. He has not been evaluated treated by the surgeons at the OR or any other providers before coming the emergency permit this evening for this recent flareup of his abdominal pain. Timing/Duration: yesterday Activities at Onset: none Quality: sharpness Abdominal Pain Onset Location: RUQ Pain Radiation: no radiation Severity of Pain-Max: severe Severity of Pain-Current: severe Modifying Factors: Improves With: nothing Associated Symptoms: No back, No chest pain, No diaphoresis, No diarrhea, No fever/chills, No fatigue, No headache, No heartburn, No loss of appetite, No nausea, No neck pain, No rash, No shortness of breath, No syncope, No testicular pain, No vomiting, No weakness Previous symptoms: same symptoms as today, recently seen, recently treated Allergies/Adverse Reactions: hydrocodone bitartrate [From Vicodin] Allergy (Verified 10/01/22 23:20) Rash Iodinated Contrast Media Allergy (Verified 10/01/22 23:20) ketorolac [From Toradol] Allergy (Verified 10/01/22 23:20) Penicillins Allergy (Verified 10/01/22 23:20) venlafaxine Allergy (Verified 10/01/22 23:20) codeine Adverse Reaction (Verified 10/01/22 23:20) codeine phosphate [From Codar D] Adverse Reaction (Verified 10/01/22 23:20) morphine Adverse Reaction (Verified 10/01/22 23:20) pseudoephedrine HCl [From Codar D] Adverse Reaction (Verified 10/01/22 23:20) Home Medications: Aspirin 81 gm Chew [Baby Aspirin 81 mg Chew] 81 mg PO DAILY 04/11/14 [History] Albuterol Sulfate [Proair Digihaler] 2 puff IH QID PRN PRN 09/11/20 [History] Atorvastatin Calcium 1 tab PO HS 09/11/20 [History] Budesonide/Formoterol Fumarate [Budesonide-Formoterol 160-4.5] 2 puffs IH BID 09/11/20 [History] Fluticasone Propionate [Flovent Diskus] 2 sprays IN DAILY 09/11/20 [History] PANTOPRAZOLE 40 mg Tablet [Protonix 40MG Tablet] 80 mg PO BID 09/11/20 [History] Ticagrelor [Brilinta] 90 mg PO BID 09/11/20 [History] Tiotropium Everetts Inhaler [Spiriva 18 Mcg/Cap Inhaler] 2 puffs IH DAILY 09/11/20 [History] clonazePAM [Clonazepam] 2 mg PO UD PRN 09/11/20 [History] lisinopriL [Lisinopril] 2.5 mg PO BID 09/11/20 [History] Cholecalciferol (Vitamin D3) [Vitamin D3] 125 mcg PO DAILY 03/22/21 [History] Cyanocobalamin 500 Mcg [Vitamin B-12 500 MCG] 1,000 mcg PO DAILY 03/22/21 [History] Ranolazine 500 MG [Ranexa 500 MG] 500 mg PO BID 03/22/21 [History] Acetaminophen 500 mg [Tylenol Extra Strength 500 mg] 2,500 mg PO TID 03/30/21 [History] Nitroglycerin [Nitrolingual] 1 gm TL Q5MIN PRN MR X 3 PRN 03/30/21 [History] Hx Tetanus, Diphtheria Vaccination/Date Given: Yes Hx Influenza Vaccination/Date Given: No Hx Pneumococcal Vaccination/Date Given: No Travel Risk - International Travel Have you traveled outside of the country in past 3 weeks: No - Coronavirus Screening Are you exhibiting any of the following symptoms?: No Close contact with a COVID-19 positive Pt in past 14-21 Days: No - Vaccine Status Have you recieved a Covid-19 vaccination: Yes 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: [employer] - Vaccination Dates Date of 2cond Vaccination (if applicable): 2020 - Review of Systems Constitutional: No Fever, No Chills, No Weight Loss Eyes: No Symptoms, No Discharge, No Eye Pain, No Eye Redness, No Vision Changes Ears, Nose, & Throat: No Symptoms, No Nose Congestion, No Throat Pain, No Throat Swelling Respiratory: No Cough, No Dyspnea Cardiac: No Chest Pain, No Edema, No Syncope Abdominal/Gastrointestinal: Abdominal Pain, No Nausea, No Vomiting, No Diarrhea, No Hematemesis, No Hematochezia, No Melena Genitourinary Symptoms: No Dysuria, No Hematuria Musculoskeletal: No Back Pain, No Neck Pain Skin: No Rash Neurological: No Dizziness, No Focal Weakness, No Sensory Changes Psychological: No Symptoms Endocrine: No Symptoms Hematologic/Lymphatic: No Easy Bleeding, No Easy Bruising All Other Systems: Reviewed and Negative - Past Medical History Pertinent Past Medical History: Yes Neurological History: Peripheral Neuropathy, TIA ENT History: No Pertinent History Cardiac History: Aneurysm, Coronary Artery Disease, High Cholesterol, Hypertension, Myocardial Infarction ([place]) Respiratory History: Asthma, COPD, Emphysema, Pneumonia, Sleep Apnea, Other Endocrine Medical History: Hypothyroidism Musculoskeletal History: Degenerative Disk Disease GI Medical History: Gallbladder Disease, Hernia History: Other Psycho-Social History: Anxiety Male Reproductive Disorders: No Pertinent History Other Medical History: CHRONIC BACK PAIN, carotid artery disease. KIDNEY STONES - Past Surgical History Past Surgical History: Yes Neuro Surgical History: No Pertinent History Cardiac: Cardiac Catheterization, Cardiac Stent Respiratory: Other Gastrointestinal: No Pertinent History Genitourinary: No Pertinent History Musculoskeletal: Orthopedic Surgery Male Surgical History: No Pertinent History Other Surgical History: R lung cut a 1/4 inch off the top. 1988, back surgery , inspire placement, rt leg fx. drain placed for bile drainage - Social History Smoking Status: Current every day smoker How long have you smoked: 48 yrs Exposure to second hand smoke: No Drug Use: none Patient Lives Alone: No - Nursing Vital Signs Nursing Vital Signs: Initial Vital Signs Temperature 97.2 F 10/01/22 23:05 Pulse Rate 81 10/01/22 23:05 Respiratory Rate 16 10/01/22 23:05 Blood Pressure 152/83 10/01/22 23:05 O2 Sat by Pulse Oximetry 97 10/01/22 23:05 Pain Scale Pain Intensity 9 - Physical Exam General Appearance: no apparent distress, alert Eye Exam: PERRL/EOMI, eyes nml inspection Ears, Nose, Throat Exam: normal ENT inspection, pharynx normal, moist mucous membranes Neck Exam: normal inspection, non-tender, supple, full range of motion, No Brudzinski Respiratory Exam: normal breath sounds, lungs clear, No respiratory distress, No crackles/rales, No rhonchi, No wheezing Cardiovascular Exam: regular rate/rhythm, normal heart sounds, normal peripheral pulses, capillary refill <2 sec Gastrointestinal/Abdomen Exam: soft, normal bowel sounds, other (Drain tube at the right upper quadrant appears to be clean, dry intact with no surrounding erythema, induration or any drainage from the site), No tenderness, No mass, No ecchymosis Back Exam: normal inspection, normal range of motion, No CVA tenderness, No vertebral tenderness Extremity Exam: normal inspection, normal range of motion, pelvis stable Neurologic Exam: alert, oriented x 3, cooperative, normal mood/affect, nml cerebellar function, sensation nml, No motor deficits Skin Exam: normal color, warm, dry, No petechiae, No cyanosis, No jaundice SpO2 Interpretation: normal SpO2: 97 O2 Delivery: Room Air - Course Nursing assessment & vital signs reviewed: Yes EKG Interpreted by Me: RATE (71), NORMAL AXIS, NORMAL INTERVALS, NORMAL QRS, Other (No acute ST or T wave changes, but there are mild T wave inversion lead III with a Q wave which is unchanged in comparison to EKG in 07/01/2022) Ordered Tests: Active Orders 24 hr Category Date Time Status IV Insertion STAT Care 10/01/22 23:10 Active CBC W DIFF Stat Lab 10/01/22 23:35 Completed CMP Stat Lab 10/01/22 23:35 Completed LIPASE Stat Lab 10/01/22 23:35 Completed Lactic Acid Stat Lab 10/01/22 23:32 Completed PROTIME WITH INR Stat Lab 10/01/22 23:35 Completed TROPONIN Q4H Lab 10/01/22 23:35 Completed UA W/RFX UR CULTURE Stat Lab 10/01/22 23:35 Completed EKG STAT RT 10/02/22 00:35 Active Medication Summary Discontinued Medications Generic Name Dose Route Start Last Admin Trade Name Freq PRN Reason Stop Dose Admin Diphenhydramine HCl 25 mg 10/01/22 23:10 10/01/22 23:55 Diphenhydramine Hcl 50 Mg/Ml Vial IV 10/01/22 23:11 25 mg STAT ONE Administration Diphenhydramine HCl Confirm 10/01/22 23:52 Diphenhydramine Hcl 50 Mg/Ml Vial Administered 10/01/22 23:53 Dose 50 mg .ROUTE .STK-MED ONE Hydromorphone HCl 1 mg 10/01/22 23:10 10/01/22 23:54 Hydromorphone 1 Mg/1ml Inj IV 10/01/22 23:11 1 mg STAT ONE Administration Hydromorphone HCl Confirm 10/01/22 23:52 Hydromorphone 1 Mg/1ml Inj Administered 10/01/22 23:53 Dose 1 mg .ROUTE .STK-MED ONE Sodium Chloride 1,000 mls @ 999 mls/hr 10/01/22 23:10 10/01/22 23:54 Sodium Chloride 0.9% 1000 Ml IV 10/02/22 00:10 999 mls/hr .Q1H1M STA Administration Sodium Chloride Confirm 10/01/22 23:53 Sodium Chloride 0.9% 1000 Ml Administered 10/01/22 23:54 Dose 1,000 mls @ ud .ROUTE .STK-MED ONE Lab/Rad Data: Laboratory Result Diagrams 10/01/22 23:35 10/01/22 23:35 Laboratory Results 10/01/22 10/01/22 10/01/22 Range/Units 23:35 23:35 23:35 WBC (4.0-10.5) x10^3/uL RBC (4.1-5.6) x10^6/uL Hgb (12.5-18.0) g/dL Hct (42-50) % MCV (78-100) fL MCH (26-32) pg MCHC (32-36) g/dL RDW (11.5-14.0) % Plt Count (150-450) x10^3/uL MPV (7.5-11.0) fL Gran % (36.0-66.0) % Immature Gran % (Auto) (0.00-0.4) % Nucleat RBC Rel Count (0.00-0.1) % Eos # (Auto) (0-0.5) x10^3/uL Immature Gran # (Auto) (0.00-0.03) x10^3u/L Absolute Lymphs (auto) (1.0-4.6) x10^3/uL Absolute Monos (auto) (0.0-1.3) x10^3/uL Absolute Nucleated RBC (0.00-0.01) x10^3u/L Lymphocytes % (24.0-44.0) % Monocytes % (0.0-12.0) % Eosinophils % (0.00-5.0) % Basophils % (0.0-0.4) % Absolute Granulocytes (1.4-6.9) x10^3/uL Basophils # (0-0.4) x10^3/uL PT 11.9 (9.4-12.5) SECONDS INR 1.10 (0.8-3.0) Sodium (137-145) mmol/L Potassium (3.5-5.1) mmol/L Chloride (98-107) mmol/L Carbon Dioxide (22-30) mmol/L Anion Gap (5-15) MEQ/L BUN (9-20) mg/dL Creatinine (0.66-1.25) mg/dL Estimated GFR ML/MIN Glucose (74-106) mg/dL Lactic Acid (0.4-2.0) Calcium (8.4-10.2) mg/dL Total Bilirubin (0.2-1.3) mg/dL AST (17-59) U/L ALT (0-50) U/L Alkaline Phosphatase (38-126) U/L Troponin I < 0.012 (0.000-0.034) ng/mL Serum Total Protein (6.3-8.2) g/dL Albumin (3.5-5.0) g/dL Lipase (23-300) U/L Urine Color Dark Yellow (Yellow) Urine Appearance Clear (Clear) Urine pH 5.5 (4.6-8.0) Ur Specific [place] >=1.030 A (1.005-1.030) Urine Protein 30 (Negative) Urine Glucose (UA) Negative (Negative) mg/dL Urine Ketones Negative (Negative) Urine Blood Negative (Negative) Urine Nitrite Negative (Negative) Urine Bilirubin Negative (Negative) Urine Urobilinogen 1.0 A (0.2) mg/dL Ur Leukocyte Esterase Negative (Negative) U Hyaline Cast (Auto) 6-10 A (0-2) /LPF Urine Microscopic RBC 0-2 (0-5) /HPF Urine Microscopic WBC 0-2 (0-5) /HPF Ur Epithelial Cells None Seen (None Seen) /HPF Urine Bacteria None Seen (None Seen) /HPF Urine Culture Reflexed NO (NO) 10/01/22 10/01/22 10/01/22 Range/Units 23:35 23:35 23:32 WBC 4.7 (4.0-10.5) x10^3/uL RBC 3.91 L (4.1-5.6) x10^6/uL Hgb 11.7 L (12.5-18.0) g/dL Hct 37.3 L (42-50) % MCV 95.4 (78-100) fL MCH 29.9 (26-32) pg MCHC 31.4 L (32-36) g/dL RDW 14.5 H (11.5-14.0) % Plt Count 180 (150-450) x10^3/uL MPV 9.5 (7.5-11.0) fL Gran % 61.0 (36.0-66.0) % Immature Gran % (Auto) 0.2 (0.00-0.4) % Nucleat RBC Rel Count 0.0 (0.00-0.1) % Eos # (Auto) 0.11 (0-0.5) x10^3/uL Immature Gran # (Auto) 0.01 (0.00-0.03) x10^3u/L Absolute Lymphs (auto) 1.40 (1.0-4.6) x10^3/uL Absolute Monos (auto) 0.27 (0.0-1.3) x10^3/uL Absolute Nucleated RBC 0.00 (0.00-0.01) x10^3u/L Lymphocytes % 30.0 (24.0-44.0) % Monocytes % 5.8 (0.0-12.0) % Eosinophils % 2.4 (0.00-5.0) % Basophils % 0.6 (0.0-0.4) % Absolute Granulocytes 2.85 (1.4-6.9) x10^3/uL Basophils # 0.03 (0-0.4) x10^3/uL PT (9.4-12.5) SECONDS INR (0.8-3.0) Sodium 142 (137-145) mmol/L Potassium 3.9 (3.5-5.1) mmol/L Chloride 110 H (98-107) mmol/L Carbon Dioxide 19 L (22-30) mmol/L Anion Gap 16.0 H (5-15) MEQ/L BUN 15 (9-20) mg/dL Creatinine 1.23 (0.66-1.25) mg/dL Estimated GFR > 60.0 ML/MIN Glucose 90 (74-106) mg/dL Lactic Acid 1.0 (0.4-2.0) Calcium 8.8 (8.4-10.2) mg/dL Total Bilirubin 0.70 (0.2-1.3) mg/dL AST 22 (17-59) U/L ALT 14 (0-50) U/L Alkaline Phosphatase 84 (38-126) U/L Troponin I (0.000-0.034) ng/mL Serum Total Protein 7.6 (6.3-8.2) g/dL Albumin 4.1 (3.5-5.0) g/dL Lipase 65 (23-300) U/L Urine Color (Yellow) Urine Appearance (Clear) Urine pH (4.6-8.0) Ur Specific [place] (1.005-1.030) Urine Protein (Negative) Urine Glucose (UA) (Negative) mg/dL Urine Ketones (Negative) Urine Blood (Negative) Urine Nitrite (Negative) Urine Bilirubin (Negative) Urine Urobilinogen (0.2) mg/dL Ur Leukocyte Esterase (Negative) U Hyaline Cast (Auto) (0-2) /LPF Urine Microscopic RBC (0-5) /HPF Urine Microscopic WBC (0-5) /HPF Ur Epithelial Cells (None Seen) /HPF Urine Bacteria (None Seen) /HPF Urine Culture Reflexed (NO) - Progress Progress: improved Progress Note: 10/02/22 00:30 Discussed the patient with Dr. Cai, general surgeon at the [facility] in [place], [place] and reviewed with him his presentation, his labs and DrEboni Amor has made an appointment for the patient on 10/05/2022 as patient does not require immediate transfer at this time 10/02/22 00:37 Patient's pain is well controlled with no signs of distention, true peritoneal signs such as guarding, rebound or rigidity or any other new abdominal findings on repeat evaluation 10/02/22 00:44 Patient is a 56-year-old male with abdominal issues with pain due to bad gallbladder for multiple months who has a cholecystostomy tube in place draining the gallbladder comes in pain flareup over the past day and a half. Patient had no other concerning review of systems and no concerning abdominal exam findings as the site from the tube exit from the abdomen appear to be clean and dry with no drainage or signs erythema or induration around the area. Labs are drawn and EKG was performed with normal troponin, normal total bilirubin, normal lipase normal lactic acid with normal white blood cell count no change in his mild chronic anemia in comparison to past labs. Patient was given excellent pain control with 1 dose of Dilaudid and Benadryl, and he was discussed with the general surgeon at the [facility] who helps take care of him and they will see the patient on 10/05/2022 for continued evaluation determine the next step in regards to the get a cholangiogram on the day of his visit and determine if he is a surgical candidate from there. Patient return back to the nearest emergency room if he has any fever, new jaundice, scleral icterus, new chest pain, worsening abdominal pain, new black or red stools, any flank pain, hematuria, new focal weakness in arms or legs or loss sensation in arms or legs or any other concerning signs or symptoms that were not present at today's emergency room visit for immediate reevaluation in the nearest emergency department Discussed with Dr.: Other (Dr Cai, General Surgery at OR in [place], [place]) Counseled pt/family regarding: lab results, diagnosis, need for follow-up - Departure Departure Disposition: Home Clinical Impression: Chronic abdominal pain, Right upper quadrant abdominal pain, Elevated blood pressure reading without diagnosis of hypertension, Mild anemia Condition: Good Critical Care Time: No Referrals: HOSPITAL,'S [Primary Care Provider] - Follow Up with PCP/3 days (Dr. Cai will see you on , 10/01/2022) Instructions: Severe Abdominal Pain, Adult (DC), Gallstones (DC) Additional Instructions: Return back to the nearest emergency room if you have any fever greater than 101, uncontrollable abdominal pain, trouble nausea vomiting, new vomiting of blood, new black or red stools, new blood in your urine, new weakness in the arms or legs, new type of abdominal pain, new chest pain, new shortness of breath or any other concerning signs or symptoms that were not present at today's emergency room visit for immediate reevaluation in the nearest emergency department
[2022-10-01 23:38] LABS: Absolute Neutrophil Ct (ANC) 2.85 x10^3/uL (1.4-6.9); BASOPHIL % 0.6 % (0.0-0.4); Basophil (Absolute #) 0.03 x10^3/uL (0-0.4); Eosinophil % 2.4 % (0.00-5.0); Eosinophil (Absolute #) 0.11 x10^3/uL (0-0.5); Hematocrit 37.3 % (42-50); Hemoglobin 11.7 g/dL (12.5-18.0); IMMATURE GRAN # 0.01 x10^3u/L (0.00-0.03); IMMATURE GRAN % 0.2 % (0.00-0.4); Mean Cell Volume 95.4 fL (78-100); Mean Corpuscular Hemoglobin 29.9 pg (26-32); Mean Corpuscular Hgb Concent. 31.4 g/dL (32-36); Mean Platelet Volume 9.5 fL (7.5-11.0); Monocyte (Absolute #) 0.27 x10^3/uL (0.0-1.3); Monocytes % 5.8 % (0.0-12.0); Platelet Count 180 x10^3/uL (150-450); Red Blood Count 3.91 x10^6/uL (4.1-5.6); Red Cell Distribution Width 14.5 % (11.5-14.0); White Blood Count 4.7 x10^3/uL (4.0-10.5)
[2022-10-01 23:50] LABS: Appearance Clear (Clear); Bacteria None Seen /HPF (None Seen); Bilirubin Negative (Negative); Blood Negative (Negative); Epithelial Cells None Seen /HPF (None Seen); Glucose, Urine Negative (Negative); Ketones Negative (Negative); Leukocyte Esterase Negative (Negative); Nitrite Negative (Negative); Ph 5.5 (4.6-8.0); Protein,Urine Dip 30 (Negative); RBC 0-2 /HPF (0-5); Specific Gravity >=1.030 (1.005-1.030); WBC 0-2 /HPF (0-5)
[2022-10-01 23:51] LABS: ADD URINE CULTURE? NO (NO); ALBUMIN 4.1 g/dL (3.5-5.0); ALKALINE PHOSPHATASE 84 U/L (38-126); BLOOD UREA NITROGEN 15 mg/dL (9-20); CHLORIDE 110 mmol/L (98-107); Calcium 8.8 mg/dL (8.4-10.2); Carbon Dioxide 19 mmol/L (22-30); Creatinine 1 1.23 mg/dL (0.66-1.25); EST GLOMERULAR FILTRATION RATE > 60.0 ML/MIN; Glucose 90 mg/dL (74-106); INR 1.1 (0.8-3.0); LIPASE 65 U/L (23-300); PROTIME 11.9 SECONDS (9.4-12.5); Potassium 3.9 mmol/L (3.5-5.1); SGOT/AST 22 U/L (17-59); SGPT/ALT 14 U/L (0-50); SODIUM 142 mmol/L (137-145); Total Protein 7.6 g/dL (6.3-8.2)
[2022-10-01] MEDS ORDERED: Hydromorphone 1 mg/ml Injection ONE (23:52)
[2022-10-01] MEDS ORDERED: BENADRYL 50 MG/ML ONE (23:52)
[2022-10-01] MEDS ORDERED: Sodium Chloride 0.9% 1000 ML 1,000 ML ONE (23:53)
== END 2022-10-02 01:13 | disposition home or self-care (01) ==
LOC: ED 22:34
DX: G89.29 Other chronic pain (principal); R10.11 Right upper quadrant pain; D64.9 Anemia, unspecified; I10 Essential (primary) hypertension; E78.5 Hyperlipidemia, unspecified; Z79.02 Long term (current) use of antithrombotics/antiplatelets; Z79.899 Other long term (current) drug therapy; Z72.0 Tobacco use; Z86.73 Personal history of transient ischemic attack (TIA), and cerebral infarction without residual deficits
CPT/HCPCS: 36000; 36415; 80053; 81001; 83605; 83690; 84484; 85025; 85610; 96374; 96375; 99284; J1170; J1200

== ENCOUNTER 2022-10-06 23:22 | Emergency (ER) | payer OTHER ==
[2022-10-06 23:36] VITALS: RESP 18; TEMP 97.8
--- NOTE | 2022-10-06 23:59 | ERPHSYRPT ---
- History of Present Illness Historian: patient Exam Limitations: no limitations Patient Subjective Stated Complaint: pt states that he met with the surgeron yesterday and sunday is his surgery. pt states that the pain is worse Triage Nursing Assessment: pt ambulated into the er; pt is axo x4; c/o RUQ pain; pt states 10/10 to RUQ; active bowel sounds in all quads; pt denies N/V/D; skin PDW; no respiratory distress; hypertension Physician History: 57 yo WM who has a percutaneous tube in his common bile duct x 2 months presents w RUQ pain which he rates a 9/10 on scale. He is scheduled to have a choelcystectomy next week at the [place] by Dr. Valdez. Nothing makes the pain better or worse. He denies N/V/diarrhea/melena/hematochezia/dysuria/hematuria fever/chest pain. Pain is of 7hr duration and most likely exacerbation of chronic abdominal pain. Timing/Duration: other (7hrs/chronic) Activities at Onset: rest Quality: sharpness Abdominal Pain Onset Location: RUQ Pain Radiation: no radiation Severity of Pain-Max: severe Severity of Pain-Current: severe Modifying Factors: Improves With: nothing Associated Symptoms: denies symptoms Previous symptoms: same symptoms as today Allergies/Adverse Reactions: hydrocodone bitartrate [From Vicodin] Allergy (Verified 10/06/22 23:29) Rash Iodinated Contrast Media Allergy (Verified 10/06/22 23:29) ketorolac [From Toradol] Allergy (Verified 10/06/22 23:29) Penicillins Allergy (Verified 10/06/22 23:29) venlafaxine Allergy (Verified 10/06/22 23:29) codeine Adverse Reaction (Verified 10/06/22 23:29) codeine phosphate [From Codar D] Adverse Reaction (Verified 10/06/22 23:29) morphine Adverse Reaction (Verified 10/06/22 23:29) pseudoephedrine HCl [From Codar D] Adverse Reaction (Verified 10/06/22 23:29) Home Medications: Aspirin 81 gm Chew [Baby Aspirin 81 mg Chew] 81 mg PO DAILY 04/11/14 [History] Albuterol Sulfate [Proair Digihaler] 2 puff IH QID PRN PRN 09/11/20 [History] Atorvastatin Calcium 1 tab PO HS 09/11/20 [History] Budesonide/Formoterol Fumarate [Budesonide-Formoterol 160-4.5] 2 puffs IH BID 09/11/20 [History] Fluticasone Propionate [Flovent Diskus] 2 sprays IN DAILY 09/11/20 [History] PANTOPRAZOLE 40 mg Tablet [Protonix 40MG Tablet] 80 mg PO BID 09/11/20 [History] Ticagrelor [Brilinta] 90 mg PO BID 09/11/20 [History] Tiotropium [place] Inhaler [Spiriva 18 Mcg/Cap Inhaler] 2 puffs IH DAILY 09/11/20 [History] clonazePAM [Clonazepam] 2 mg PO UD PRN 09/11/20 [History] lisinopriL [Lisinopril] 2.5 mg PO BID 09/11/20 [History] Cholecalciferol (Vitamin D3) [Vitamin D3] 125 mcg PO DAILY 03/22/21 [History] Cyanocobalamin 500 Mcg [Vitamin B-12 500 MCG] 1,000 mcg PO DAILY 03/22/21 [History] Ranolazine 500 MG [Ranexa 500 MG] 500 mg PO BID 03/22/21 [History] Acetaminophen 500 mg [Tylenol Extra Strength 500 mg] 2,500 mg PO TID 03/30/21 [History] Nitroglycerin [Nitrolingual] 1 gm TL Q5MIN PRN MR X 3 PRN 03/30/21 [History] Hx Tetanus, Diphtheria Vaccination/Date Given: Yes Hx Influenza Vaccination/Date Given: No Hx Pneumococcal Vaccination/Date Given: No Travel Risk - International Travel Have you traveled outside of the country in past 3 weeks: No - Coronavirus Screening Are you exhibiting any of the following symptoms?: No Close contact with a COVID-19 positive Pt in past 14-21 Days: No - Vaccine Status Have you recieved a Covid-19 vaccination: Yes 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: [employer] - Vaccination Dates Date of 2cond Vaccination (if applicable): 2020 - Review of Systems Constitutional: No Symptoms Eyes: No Symptoms Ears, Nose, & Throat: No Symptoms Respiratory: No Symptoms Cardiac: No Symptoms Abdominal/Gastrointestinal: No Symptoms, Abdominal Pain Genitourinary Symptoms: No Symptoms Musculoskeletal: No Symptoms Skin: No Symptoms Neurological: No Symptoms Psychological: No Symptoms Endocrine: No Symptoms Hematologic/Lymphatic: No Symptoms Immunological/Allergic: No Symptoms - Past Medical History Pertinent Past Medical History: Yes Neurological History: Peripheral Neuropathy, TIA ENT History: No Pertinent History Cardiac History: Aneurysm, Coronary Artery Disease, High Cholesterol, Hypertension, Myocardial Infarction ([place]) Respiratory History: Asthma, COPD, Emphysema, Pneumonia, Sleep Apnea, Other Endocrine Medical History: Hypothyroidism Musculoskeletal History: Degenerative Disk Disease GI Medical History: Gallbladder Disease, Hernia History: Other Psycho-Social History: Anxiety Male Reproductive Disorders: No Pertinent History Other Medical History: CHRONIC BACK PAIN, carotid artery disease. KIDNEY STONES - Past Surgical History Past Surgical History: Yes Neuro Surgical History: No Pertinent History Cardiac: Cardiac Catheterization, Cardiac Stent Respiratory: Other Gastrointestinal: No Pertinent History Genitourinary: No Pertinent History Musculoskeletal: Orthopedic Surgery Male Surgical History: No Pertinent History Other Surgical History: R lung cut a 1/4 inch off the top. 1988, back surgery , inspire placement, rt leg fx. drain placed for bile drainage - Social History Smoking Status: Current every day smoker How long have you smoked: 48 yrs Exposure to second hand smoke: No Drug Use: none Patient Lives Alone: No - Nursing Vital Signs Nursing Vital Signs: Initial Vital Signs Temperature 97.8 F 10/06/22 23:31 Pulse Rate 75 10/06/22 23:31 Respiratory Rate 18 10/06/22 23:31 Blood Pressure 164/106 10/06/22 23:31 O2 Sat by Pulse Oximetry 99 10/06/22 23:31 Pain Scale Pain Intensity 10 Hypertensive - Physical Exam General Appearance: no apparent distress Eye Exam: PERRL/EOMI, eyes nml inspection Ears, Nose, Throat Exam: normal ENT inspection, TMs normal, pharynx normal, moist mucous membranes Neck Exam: normal inspection, non-tender, supple, full range of motion, No meningismus, No mass, No Brudzinski, No Kernig's Respiratory Exam: normal breath sounds, lungs clear, airway intact Cardiovascular Exam: regular rate/rhythm, normal heart sounds, normal peripheral pulses, capillary refill <2 sec, No murmur Gastrointestinal/Abdomen Exam: soft, normal bowel sounds, tenderness (TTP RUQ/Drainage tube in place wo evidence of infection/No guarding or rebound) Extremity Exam: normal inspection, normal range of motion Neurologic Exam: alert, oriented x 3, cooperative, 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, normal mood/affect, nml cerebellar function, nml station & gait, sensation nml Skin Exam: normal color, warm, dry, No rash Lymphatic Exam: No adenopathy SpO2 Interpretation: normal SpO2: 99 O2 Delivery: Room Air - Course Nursing assessment & vital signs reviewed: Yes - CT Exams Abdomen/Pelvis CT Interpretation: Tele-radiologist Report (No sig change/Infra-renal AAA 3.1x2.6 wo leak-rupture/Distended gallbladder w drain in lumen) Ordered Tests: Active Orders 24 hr Category Date Time Status AMA [Release AMA] OM.NOW Care 10/07/22 00:37 Completed ABDOMEN AND PELVIS W/0 CONTRAS [CT] Stat Exams 10/06/22 23:53 Completed AMYLASE Stat Lab 10/06/22 00:24 Completed CBC W DIFF Stat Lab 10/06/22 00:24 Completed CMP Stat Lab 10/06/22 00:24 Completed LIPASE Stat Lab 10/06/22 00:24 Completed Lactic Acid Stat Lab 10/06/22 23:52 Completed TROPONIN Q4H Lab 10/06/22 00:24 Completed TROPONIN Q4H Lab 10/07/22 03:53 Ordered TROPONIN Q4H Lab 10/07/22 07:53 Ordered UA W/RFX UR CULTURE Stat Lab 10/07/22 00:32 Completed Medication Summary Discontinued Medications Generic Name Dose Route Start Last Admin Trade Name Freq PRN Reason Stop Dose Admin Droperidol 1.25 mg 10/07/22 00:02 10/07/22 00:18 Droperidol 5 Mg/2 Ml Vial IM 10/07/22 00:03 1.25 mg STAT ONE Administration Droperidol Confirm 10/07/22 00:16 Droperidol 5 Mg/2 Ml Vial Administered 10/07/22 00:17 Dose 5 mg .ROUTE .STK-MED ONE Lab/Rad Data: Laboratory Result Diagrams 10/06/22 00:24 10/06/22 00:24 Laboratory Results 10/07/22 10/07/22 10/06/22 Range/Units 00:32 00:10 00:24 WBC (4.0-10.5) x10^3/uL RBC (4.1-5.6) x10^6/uL Hgb (12.5-18.0) g/dL Hct (42-50) % MCV (78-100) fL MCH (26-32) pg MCHC (32-36) g/dL RDW (11.5-14.0) % Plt Count (150-450) x10^3/uL MPV (7.5-11.0) fL Gran % (36.0-66.0) % Immature Gran % (Auto) (0.00-0.4) % Nucleat RBC Rel Count (0.00-0.1) % Eos # (Auto) (0-0.5) x10^3/uL Immature Gran # (Auto) (0.00-0.03) x10^3u/L Absolute Lymphs (auto) (1.0-4.6) x10^3/uL Absolute Monos (auto) (0.0-1.3) x10^3/uL Absolute Nucleated RBC (0.00-0.01) x10^3u/L Lymphocytes % (24.0-44.0) % Monocytes % (0.0-12.0) % Eosinophils % (0.00-5.0) % Basophils % (0.0-0.4) % Absolute Granulocytes (1.4-6.9) x10^3/uL Basophils # (0-0.4) x10^3/uL Sodium (137-145) mmol/L Potassium (3.5-5.1) mmol/L Chloride (98-107) mmol/L Carbon Dioxide (22-30) mmol/L Anion Gap (5-15) MEQ/L BUN (9-20) mg/dL Creatinine (0.66-1.25) mg/dL Estimated GFR ML/MIN Glucose (74-106) mg/dL Lactic Acid 0.9 (0.4-2.0) Calcium (8.4-10.2) mg/dL Total Bilirubin (0.2-1.3) mg/dL AST (17-59) U/L ALT (0-50) U/L Alkaline Phosphatase (38-126) U/L Troponin I < 0.012 (0.000-0.034) ng/mL Serum Total Protein (6.3-8.2) g/dL Albumin (3.5-5.0) g/dL Amylase (30-110) U/L Lipase (23-300) U/L Urine Color Yellow (Yellow) Urine Appearance Clear (Clear) Urine pH 5.5 (4.6-8.0) Ur Specific [place] 1.020 (1.005-1.030) Urine Protein Negative (Negative) Urine Glucose (UA) Negative (Negative) mg/dL Urine Ketones Negative (Negative) Urine Blood Negative (Negative) Urine Nitrite Negative (Negative) Urine Bilirubin Negative (Negative) Urine Urobilinogen 0.2 (0.2) mg/dL Ur Leukocyte Esterase Negative (Negative) U Hyaline Cast (Auto) NONE SEEN (0-2) /LPF Urine Microscopic RBC 0-2 (0-5) /HPF Urine Microscopic WBC 0-2 (0-5) /HPF Ur Epithelial Cells None Seen (None Seen) /HPF Urine Bacteria None Seen (None Seen) /HPF Urine Culture Reflexed NO (NO) 10/06/22 10/06/22 Range/Units 00:24 00:24 WBC 9.2 (4.0-10.5) x10^3/uL RBC 3.52 L (4.1-5.6) x10^6/uL Hgb 10.6 L (12.5-18.0) g/dL Hct 33.7 L (42-50) % MCV 95.7 (78-100) fL MCH 30.1 (26-32) pg MCHC 31.5 L (32-36) g/dL RDW 14.6 H (11.5-14.0) % Plt Count 148 L (150-450) x10^3/uL MPV 9.7 (7.5-11.0) fL Gran % 76.9 H (36.0-66.0) % Immature Gran % (Auto) 0.3 (0.00-0.4) % Nucleat RBC Rel Count 0.0 (0.00-0.1) % Eos # (Auto) 0.10 (0-0.5) x10^3/uL Immature Gran # (Auto) 0.03 (0.00-0.03) x10^3u/L Absolute Lymphs (auto) 1.57 (1.0-4.6) x10^3/uL Absolute Monos (auto) 0.38 (0.0-1.3) x10^3/uL Absolute Nucleated RBC 0.00 (0.00-0.01) x10^3u/L Lymphocytes % 17.2 L (24.0-44.0) % Monocytes % 4.2 (0.0-12.0) % Eosinophils % 1.1 (0.00-5.0) % Basophils % 0.3 (0.0-0.4) % Absolute Granulocytes 7.04 H (1.4-6.9) x10^3/uL Basophils # 0.03 (0-0.4) x10^3/uL Sodium 139 (137-145) mmol/L Potassium 3.5 (3.5-5.1) mmol/L Chloride 103 (98-107) mmol/L Carbon Dioxide 30 (22-30) mmol/L Anion Gap 9.9 (5-15) MEQ/L BUN 18 (9-20) mg/dL Creatinine 1.00 (0.66-1.25) mg/dL Estimated GFR > 60.0 ML/MIN Glucose 100 (74-106) mg/dL Lactic Acid (0.4-2.0) Calcium 8.6 (8.4-10.2) mg/dL Total Bilirubin 0.30 (0.2-1.3) mg/dL AST 17 (17-59) U/L ALT 12 (0-50) U/L Alkaline Phosphatase 85 (38-126) U/L Troponin I (0.000-0.034) ng/mL Serum Total Protein 6.5 (6.3-8.2) g/dL Albumin 3.5 (3.5-5.0) g/dL Amylase 38 (30-110) U/L Lipase 62 (23-300) U/L Urine Color (Yellow) Urine Appearance (Clear) Urine pH (4.6-8.0) Ur Specific [place] (1.005-1.030) Urine Protein (Negative) Urine Glucose (UA) (Negative) mg/dL Urine Ketones (Negative) Urine Blood (Negative) Urine Nitrite (Negative) Urine Bilirubin (Negative) Urine Urobilinogen (0.2) mg/dL Ur Leukocyte Esterase (Negative) U Hyaline Cast (Auto) (0-2) /LPF Urine Microscopic RBC (0-5) /HPF Urine Microscopic WBC (0-5) /HPF Ur Epithelial Cells (None Seen) /HPF Urine Bacteria (None Seen) /HPF Urine Culture Reflexed (NO) - Progress Progress Note: 10/07/22 00:52 Nursing note and vital signs reviewed No food or housing insecurities noted 10/07/22 00:52 Droperidol 1.25mg IM Pt left AMA before labs/CT read 10/07/22 00:54 All labs reviewed after pt left AMA CT result reviewed after pt left AMA 10/07/22 01:17 Medical Desision Making - Independent Historian Additional History obtained from: Spouse - Departure Departure Disposition: AMA Clinical Impression: Abdominal pain Condition: Stable Critical Care Time: No Referrals: [facility]OSP[facility],'[facility] [Primary Care Provider] - Follow up/PCP as directed
[2022-10-07 00:29] LABS: Absolute Neutrophil Ct (ANC) 7.04 x10^3/uL (1.4-6.9); BASOPHIL % 0.3 % (0.0-0.4); Basophil (Absolute #) 0.03 x10^3/uL (0-0.4); Eosinophil % 1.1 % (0.00-5.0); Hematocrit 33.7 % (42-50); Hemoglobin 10.6 g/dL (12.5-18.0); IMMATURE GRAN # 0.03 x10^3u/L (0.00-0.03); IMMATURE GRAN % 0.3 % (0.00-0.4); Lymphocyte (Absolute #) 1.57 x10^3/uL (1.0-4.6); Lymphocytes % 17.2 % (24.0-44.0); Mean Cell Volume 95.7 fL (78-100); Mean Corpuscular Hemoglobin 30.1 pg (26-32); Mean Corpuscular Hgb Concent. 31.5 g/dL (32-36); Mean Platelet Volume 9.7 fL (7.5-11.0); Monocyte (Absolute #) 0.38 x10^3/uL (0.0-1.3); Monocytes % 4.2 % (0.0-12.0); Neutrophil % 76.9 % (36.0-66.0); Platelet Count 148 x10^3/uL (150-450); Red Blood Count 3.52 x10^6/uL (4.1-5.6); Red Cell Distribution Width 14.6 % (11.5-14.0); White Blood Count 9.2 x10^3/uL (4.0-10.5)
[2022-10-07 00:32] VITALS: BP 123/63; PULSE 73
[2022-10-07 00:38] LABS: ALBUMIN 3.5 g/dL (3.5-5.0); ALKALINE PHOSPHATASE 85 U/L (38-126); AMYLASE 38 U/L (30-110); ANION GAP 9.9 MEQ/L (5-15); BLOOD UREA NITROGEN 18 mg/dL (9-20); CHLORIDE 103 mmol/L (98-107); Calcium 8.6 mg/dL (8.4-10.2); Carbon Dioxide 30 mmol/L (22-30); EST GLOMERULAR FILTRATION RATE > 60.0 ML/MIN; Glucose 100 mg/dL (74-106); LIPASE 62 U/L (23-300); Potassium 3.5 mmol/L (3.5-5.1); SGOT/AST 17 U/L (17-59); SGPT/ALT 12 U/L (0-50); SODIUM 139 mmol/L (137-145); Total Protein 6.5 g/dL (6.3-8.2)
[2022-10-07 00:47] LABS: Appearance Clear (Clear); Bacteria None Seen /HPF (None Seen); Bilirubin Negative (Negative); Blood Negative (Negative); Epithelial Cells None Seen /HPF (None Seen); Glucose, Urine Negative (Negative); Hyaline Casts NONE SEEN /LPF (0-2); Ketones Negative (Negative); Leukocyte Esterase Negative (Negative); Nitrite Negative (Negative); Ph 5.5 (4.6-8.0); Protein,Urine Dip Negative (Negative); RBC 0-2 /HPF (0-5); Urobilinogen 0.2 mg/dL (0.2); WBC 0-2 /HPF (0-5)
[2022-10-07 00:52] LABS: ADD URINE CULTURE? NO (NO)
[2022-10-07 00:55] VITALS: O2SAT 99
--- NOTE | 2022-10-07 01:06 | XRAY ---
CLINICAL HISTORY:abdominal pain COMPARISON:09/22/2022 CT Abdomen & Pelvis W/O contrast. TECHNIQUE:CT of the abdomen and pelvis was performed in axial plane with sagittal and coronal reconstructed images without intravenous contrast administration. FINDINGS: The liver is normal in size (14.2 cm), showing few calcific foci involving both lobes of the liver. (? Old calcified granulomas). Gall bladder is partially distended with percutaneous drain catheter inside its lumen. No significant subcutaneous fatty stranding or fluid collection seen in the path of tube. Unremarkable appearing pancreas. No pancreatic mass or ductal dilatation is seen. Spleen is normal in size and shows a few tiny calcific foci within it. The adrenal glands are normal. The kidneys appear unremarkable with no cysts, masses or hydronephrosis. Few renal concretion are seen involving the upper group calyces of the left kidney. Few renal concretion are also seen involving the lower group calyces of the right kidney. The bladder is unremarkable with no stones. The stomach appears unremarkable. Unremarkable appearing duodenum. Small Bowel and colon are non-distended with no abnormality. Fecal-loaded large bowel loops. Redemonstaration of few diverticula in the sigmoid colon without evidence of acute diverticulitis. No free air and no ascites. No free intraperitoneal air is seen. Visualized vertebrae shows degenerative changes. Vertebral fixation device seen involving the L4 and L5 lumbar vertebra. Sclerosis of the pedicles and lamina of L4 and L5 vertebra doy may represent post-intervention changes. Extensive aortic wall calcification is also seen involving its branches. Aneurysmal dilatation of infrarenal aorta is noted with maximal luminal diameter 3.1 x2.6 cm. No periaortic collection/leak seen in the present study. IVC is normal. Note is made of small hiatal hernia. Calcified nodule seen involving the right middle lobe. IMPRESSION: 1. No significant interval changes from prior CT. No acute intraabdominal or pelvic pathology. 2. Redemonstration of infrarenal aortic aneurysm noted. 3. Redemonstration of renal concretions.No obstructive uropthay. 4. Small hiatal hernia. Electronically Signed by: Cherelle Elise MD. 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
== END 2022-10-07 00:36 | disposition left against medical advice (07) ==
LOC: ED 23:22
DX: R10.11 Right upper quadrant pain (principal); E78.5 Hyperlipidemia, unspecified; I10 Essential (primary) hypertension; Z79.02 Long term (current) use of antithrombotics/antiplatelets; Z79.899 Other long term (current) drug therapy; Z72.0 Tobacco use
CPT/HCPCS: 36415; 74176; 80053; 81001; 82150; 83605; 83690; 84484; 85025; 96372; 99283

== ENCOUNTER 2022-11-01 01:40 | Emergency (ER) | payer OTHER ==
[2022-11-01 02:03] VITALS: RESP 16; TEMP 97.8; O2SAT 99
--- NOTE | 2022-11-01 02:35 | ERPHSYRPT ---
- History of Present Illness Time Seen by Provider: 11/01/22 02:28 Historian: patient Exam Limitations: no limitations Patient Subjective Stated Complaint: pt states he has been having pain in his rt abd and rt flank for past week. pain radiates to lt back and downto rt groin. pain worse with urination and then radiates to testicles Triage Nursing Assessment: pt alert and oriented, answers questions approp. pt ambualtes into room with steadyg ait noted. respirations nonlabored. abd soft. bowel sounds present. skin warm and dry. Physician History: Patient is a 57-year-old male sitting up at the edge of the bed with his street close on. Patient not in gown. Presents to emergency department for evaluation of right abdomen and right flank pain for 1 week. Pain has been intermittent. Pain tends to radiate to his back groin area. No trauma no fever. No nausea vomiting or diaphoresis. Symptoms are mild to moderate in intensity. No specific worsening improving factors. Patient voices no other complaints or concerns at this time. Portions of this note were created with voice recognition technology. There may be grammatical, spelling, punctuation or sound alike errors Timing/Duration: week(s) (1 week) Activities at Onset: none Quality: aching Abdominal Pain Onset Location: flank Pain Radiation: groin, back Severity of Pain-Max: moderate Severity of Pain-Current: mild Modifying Factors: Improves With: nothing Associated Symptoms: denies symptoms Previous symptoms: no prior history Allergies/Adverse Reactions: hydrocodone bitartrate [From Vicodin] Allergy (Verified 11/01/22 02:03) Rash Iodinated Contrast Media Allergy (Verified 11/01/22 02:03) ketorolac [From Toradol] Allergy (Verified 11/01/22 02:03) Penicillins Allergy (Verified 11/01/22 02:03) venlafaxine Allergy (Verified 11/01/22 02:03) codeine Adverse Reaction (Verified 11/01/22 02:03) codeine phosphate [From Codar D] Adverse Reaction (Verified 11/01/22 02:03) morphine Adverse Reaction (Verified 11/01/22 02:03) pseudoephedrine HCl [From Codar D] Adverse Reaction (Verified 11/01/22 02:03) Home Medications: Aspirin 81 gm Chew [Baby Aspirin 81 mg Chew] 81 mg PO DAILY 04/11/14 [History] Albuterol Sulfate [Proair Digihaler] 2 puff IH QID PRN PRN 09/11/20 [History] Atorvastatin Calcium 1 tab PO HS 09/11/20 [History] Budesonide/Formoterol Fumarate [Budesonide-Formoterol 160-4.5] 2 puffs IH BID 09/11/20 [History] Fluticasone Propionate [Flovent Diskus] 2 sprays IN DAILY 09/11/20 [History] PANTOPRAZOLE 40 mg Tablet [Protonix 40MG Tablet] 80 mg PO BID 09/11/20 [History] Ticagrelor [Brilinta] 90 mg PO BID 09/11/20 [History] Tiotropium [place] Inhaler [Spiriva 18 Mcg/Cap Inhaler] 2 puffs IH DAILY 09/11/20 [History] clonazePAM [Clonazepam] 2 mg PO UD PRN 09/11/20 [History] lisinopriL [Lisinopril] 2.5 mg PO BID 09/11/20 [History] Cholecalciferol (Vitamin D3) [Vitamin D3] 125 mcg PO DAILY 03/22/21 [History] Cyanocobalamin 500 Mcg [Vitamin B-12 500 MCG] 1,000 mcg PO DAILY 03/22/21 [History] Ranolazine 500 MG [Ranexa 500 MG] 500 mg PO BID 03/22/21 [History] Acetaminophen 500 mg [Tylenol Extra Strength 500 mg] 2,500 mg PO TID 03/30/21 [History] Nitroglycerin [Nitrolingual] 1 gm TL Q5MIN PRN MR X 3 PRN 03/30/21 [History] Hx Tetanus, Diphtheria Vaccination/Date Given: Yes Hx Influenza Vaccination/Date Given: No Hx Pneumococcal Vaccination/Date Given: No Immunizations Up to Date: Yes Travel Risk - International Travel Have you traveled outside of the country in past 3 weeks: No - Coronavirus Screening Are you exhibiting any of the following symptoms?: No Close contact with a COVID-19 positive Pt in past 14-21 Days: No - Vaccine Status Have you recieved a Covid-19 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: 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[employer] - Vaccination Dates Date of 2cond Vaccination (if applicable): 2020 - Review of Systems Constitutional: No Symptoms, No Fever, No Chills Eyes: No Symptoms Ears, Nose, & Throat: No Symptoms Respiratory: No Symptoms, No Cough, No Dyspnea Cardiac: No Symptoms, No Chest Pain, No Edema, No Syncope Abdominal/Gastrointestinal: No Symptoms, No Abdominal Pain, No Nausea, No Vomiting, No Diarrhea Genitourinary Symptoms: No Symptoms, No Dysuria Musculoskeletal: No Symptoms, No Back Pain, No Neck Pain Skin: No Symptoms, No Rash Neurological: No Symptoms, No Dizziness, No Focal Weakness, No Sensory Changes Psychological: No Symptoms Endocrine: No Symptoms Hematologic/Lymphatic: No Symptoms Immunological/Allergic: No Symptoms All Other Systems: Reviewed and Negative - Past Medical History Pertinent Past Medical History: Yes Neurological History: Peripheral Neuropathy, TIA ENT History: No Pertinent History Cardiac History: Aneurysm, Coronary Artery Disease, High Cholesterol, Hypertension, Myocardial Infarction ([place]) Respiratory History: Asthma, COPD, Emphysema, Pneumonia, Sleep Apnea, Other Endocrine Medical History: Hypothyroidism Musculoskeletal History: Degenerative Disk Disease GI Medical History: Gallbladder Disease, Hernia History: Other Psycho-Social History: Anxiety Male Reproductive Disorders: No Pertinent History Other Medical History: CHRONIC BACK PAIN, carotid artery disease. KIDNEY STONES - Past Surgical History Past Surgical History: Yes Neuro Surgical History: No Pertinent History Cardiac: Cardiac Catheterization, Cardiac Stent Respiratory: Other Gastrointestinal: Cholecystectomy Genitourinary: No Pertinent History Musculoskeletal: Orthopedic Surgery Male Surgical History: No Pertinent History Other Surgical History: R lung cut a 1/4 inch off the top. 1988, back surgery , inspire placement, rt leg fx. drain placed for bile drainage - Social History Smoking Status: Current every day smoker How long have you smoked: 48 yrs Exposure to second hand smoke: No Drug Use: none Patient Lives Alone: No - Nursing Vital Signs Nursing Vital Signs: Initial Vital Signs Temperature 97.8 F 11/01/22 01:51 Pulse Rate 75 11/01/22 01:51 Respiratory Rate 16 11/01/22 01:51 Blood Pressure 134/91 11/01/22 01:51 O2 Sat by Pulse Oximetry 99 11/01/22 01:51 Pain Scale Pain Intensity 9 - Physical Exam General Appearance: no apparent distress, alert Eye Exam: PERRL/EOMI, eyes nml inspection Ears, Nose, Throat Exam: normal ENT inspection, moist mucous membranes Neck Exam: normal inspection, full range of motion Respiratory Exam: normal breath sounds, airway intact, No respiratory distress Cardiovascular Exam: regular rate/rhythm Gastrointestinal/Abdomen Exam: soft, tenderness, No mass Back Exam: normal inspection, normal range of motion, No CVA tenderness, No vertebral tenderness Extremity Exam: normal inspection, normal range of motion Neurologic Exam: alert, oriented x 3, cooperative, sensation nml, No motor defi cits Skin Exam: normal color, warm, dry Lymphatic Exam: No adenopathy SpO2 Interpretation: normal SpO2: 99 O2 Delivery: Room Air - Course Nursing assessment & vital signs reviewed: Yes Ordered Tests: Active Orders 24 hr Category Date Time Status AMA [Release AMA] OM.NOW Care 11/01/22 02:37 Active - Progress Progress: improved Progress Note: 57-year-old male presents to our ED for evaluation of 1 week history of right- sided flank pain. Patient sitting at the edge of the bed. Patient fully dressed with this street close on. RN informed Dr. Fuchs that patient refused to put on a gown. A CAT scan was ordered. Patient refused the CAT scan and stated that "this is all they are going to do for me I am going to leave". RN went into the room to discuss with patient and patient decided to leave. Patient refused to sign AMA form. Patient absconded. Patient left the ER before Dr. Fuchs could speak to him a second time to discuss why he was refusing his CAT scan. Patient absconded before testing could be initiated.. 11/01/22 02:36 - Departure Departure Disposition: AMA Clinical Impression: Flank pain Condition: Stable Critical Care Time: No Referrals: [facility]OS[facility],'[facility] [Primary Care Provider] - Follow up/PCP as directed
[2022-11-01 02:38] VITALS: BP 116/69; PULSE 76
== END 2022-11-01 02:38 | disposition left against medical advice (07) ==
LOC: ED 01:40
DX: R10.9 Unspecified abdominal pain (principal); E78.5 Hyperlipidemia, unspecified; I10 Essential (primary) hypertension; Z79.02 Long term (current) use of antithrombotics/antiplatelets; Z79.899 Other long term (current) drug therapy; Z72.0 Tobacco use
CPT/HCPCS: 99282

== ENCOUNTER 2023-01-27 23:42 | Emergency (ER) | payer OTHER ==
[2023-01-28 00:04] VITALS: BP 119/66; PULSE 96; RESP 18; TEMP 97.7; O2SAT 95
[2023-01-28] MEDS ORDERED: OXYCODONE-ACETAMINOPHEN 10-325 PO STA (00:08)
[2023-01-28] MEDS ORDERED: OXYCODONE-ACETAMINOPHEN 10-325 ONE (00:15)
[2023-01-28 00:55] LABS: Group A Strep NOT DETECTED (NEGATIVE)
[2023-01-28 01:06] LABS: INFLUENZA A NEGATIVE (NEGATIVE); INFLUENZA B NEGATIVE (NEGATIVE); RESPIRATORY SYNCTIAL VIRUS NEGATIVE (NEGATIVE); SARS-CoV-2 Xpert Express NEGATIVE (NEGATIVE)
[2023-01-28] MEDS ORDERED: DELTASONE 20 MG PO ONE (01:36)
--- NOTE | 2023-01-28 01:40 | ERPHSYRPT ---
- History of Present Illness Time Seen by Provider: 01/27/23 23:52 Source: patient Exam Limitations: no limitations Patient Subjective Stated Complaint: pt states that he has had a sorethroat for the past couple of days Triage Nursing Assessment: pt ambulated into the er; pt is axo x4; c/o sorethroat; pt states burning feeling in throat; tonsils are slightly red; mucus membranes are pink and moist; skin PDW; no respiratory distress; vitals wnl Physician History: 57 years old male with multiple medical problems including chronic abdominal pain, tobacco abuse, COPD, hypertension, coronary artery disease with multiple stenting presented to the ER with chief complaint of flulike symptoms with cough congestion sore throat for the last 2 to 3 days. Patient reports he blew his nose and there was bleeding yesterday afternoon only 1 time. No chest pain palpitations or difficulty breathing. Has minimal productive cough at times. Patient has chronic abdominal pain without any nausea or vomiting or diarrhea. Subjective feeling of fever and chills Allergies/Adverse Reactions: hydrocodone bitartrate [From Vicodin] Allergy (Verified 01/27/23 23:53) Rash Iodinated Contrast Media Allergy (Verified 01/27/23 23:53) ketorolac [From Toradol] Allergy (Verified 01/27/23 23:53) Penicillins Allergy (Verified 01/27/23 23:53) venlafaxine Allergy (Verified 01/27/23 23:53) codeine Adverse Reaction (Verified 01/27/23 23:53) codeine phosphate [From Codar D] Adverse Reaction (Verified 01/27/23 23:53) morphine Adverse Reaction (Verified 01/27/23 23:53) pseudoephedrine HCl [From Codar D] Adverse Reaction (Verified 01/27/23 23:53) Home Medications: Aspirin 81 gm Chew [Baby Aspirin 81 mg Chew] 81 mg PO DAILY 04/11/14 [History] Albuterol Sulfate [Proair Digihaler] 2 puff IH QID PRN PRN 09/11/20 [History] Atorvastatin Calcium 1 tab PO HS 09/11/20 [History] Budesonide/Formoterol Fumarate [Budesonide-Formoterol 160-4.5] 2 puffs IH BID 09/11/20 [History] Fluticasone Propionate [Flovent Diskus] 2 sprays IN DAILY 09/11/20 [History] PANTOPRAZOLE 40 mg Tablet [Protonix 40MG Tablet] 80 mg PO BID 09/11/20 [History] Ticagrelor [Brilinta] 90 mg PO BID 09/11/20 [History] Tiotropium [place] Inhaler [Spiriva 18 Mcg/Cap Inhaler] 2 puffs IH DAILY 09/11/20 [History] clonazePAM [Clonazepam] 2 mg PO UD PRN 09/11/20 [History] lisinopriL [Lisinopril] 2.5 mg PO BID 09/11/20 [History] Cholecalciferol (Vitamin D3) [Vitamin D3] 125 mcg PO DAILY 03/22/21 [History] Cyanocobalamin 500 Mcg [Vitamin B-12 500 MCG] 1,000 mcg PO DAILY 03/22/21 [History] Ranolazine 500 MG [Ranexa 500 MG] 500 mg PO BID 03/22/21 [History] Acetaminophen 500 mg [Tylenol Extra Strength 500 mg] 2,500 mg PO TID 03/30/21 [History] Nitroglycerin [Nitrolingual] 1 gm TL Q5MIN PRN MR X 3 PRN 03/30/21 [History] Hx Tetanus, Diphtheria Vaccination/Date Given: Yes Hx Influenza Vaccination/Date Given: No Hx Pneumococcal Vaccination/Date Given: No Travel Risk - International Travel Have you traveled outside of the country in past 3 weeks: No - Coronavirus Screening Are you exhibiting any of the following symptoms?: No Close contact with a COVID-19 positive Pt in past 14-21 Days: No - Vaccine Status Have you recieved a Covid-19 vaccination: Yes 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: [email or web address] - Vaccination Dates Date of 2cond Vaccination (if applicable): 2020 - Review of Systems Constitutional: Fever, Chills, Fatigue Eyes: No Symptoms Ears, Nose, & Throat: Nose Congestion, Throat Pain, Throat Swelling Respiratory: Cough Cardiac: No Symptoms Abdominal/Gastrointestinal: Abdominal Pain Genitourinary Symptoms: No Symptoms Musculoskeletal: Arthralgias Neurological: No Symptoms Endocrine: No Symptoms Hematologic/Lymphatic: No Symptoms - Past Medical History Pertinent Past Medical History: Yes Neurological History: Peripheral Neuropathy, TIA ENT History: No Pertinent History Cardiac History: Aneurysm, Coronary Artery Disease, High Cholesterol, Hypertension, Myocardial Infarction ([place]) Respiratory History: Asthma, COPD, Emphysema, Pneumonia, Sleep Apnea, Other Endocrine Medical History: Hypothyroidism Musculoskeletal History: Degenerative Disk Disease GI Medical History: Gallbladder Disease, Hernia History: Other Psycho-Social History: Anxiety Male Reproductive Disorders: No Pertinent History Other Medical History: CHRONIC BACK PAIN, carotid artery disease. KIDNEY STONES - Past Surgical History Past Surgical History: Yes Neuro Surgical History: No Pertinent History Cardiac: Cardiac Catheterization, Cardiac Stent Respiratory: Other Gastrointestinal: Cholecystectomy Genitourinary: No Pertinent History Musculoskeletal: Orthopedic Surgery Male Surgical History: No Pertinent History Other Surgical History: R lung cut a 1/4 inch off the top. 1988, back surgery , inspire placement, rt leg fx. drain placed for bile drainage - Social History Smoking Status: Current every day smoker How long have you smoked: 48 yrs Exposure to second hand smoke: No Drug Use: none Patient Lives Alone: No - Nursing Vital Signs Nursing Vital Signs: Initial Vital Signs Temperature 97.7 F 01/27/23 23:54 Pulse Rate 96 H 01/27/23 23:54 Respiratory Rate 18 01/27/23 23:54 Blood Pressure 119/66 01/27/23 23:54 O2 Sat by Pulse Oximetry 95 01/27/23 23:54 Pain Scale Pain Intensity 8 - Physical Exam General Appearance: no apparent distress, alert Eye Exam: PERRL/EOMI Ears, Nose, Throat Exam: moist mucous membranes, pharyngeal erythema Neck Exam: normal inspection, non-tender, supple, full range of motion Respiratory Exam: normal breath sounds, lungs clear Cardiovascular Exam: regular rate/rhythm, normal heart sounds Gastrointestinal/Abdomen Exam: soft, normal bowel sounds, tenderness (Minimal tenderness in the right upper abdomen) Back Exam: normal inspection Extremity Exam: normal inspection, normal range of motion Neurologic Exam: alert, oriented x 3, 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 Skin Exam: normal color SpO2 Interpretation: normal SpO2: 95 O2 Delivery: Room Air Ordered Tests: Medication Summary Discontinued Medications Generic Name Dose Route Start Last Admin Trade Name Freq PRN Reason Stop Dose Admin Oxycodone/Acetaminophen 1 tab 01/28/23 00:08 01/28/23 00:15 Oxycodone / Apap 10/325 Mg 1 Tablet PO 01/28/23 00:09 1 tab STAT STA Administration Oxycodone/Acetaminophen Confirm 01/28/23 00:15 Oxycodone / Apap 10/325 Mg 1 Tablet Administered 01/28/23 00:16 Dose 1 tab .ROUTE .STK-MED ONE Lab/Rad Data: Laboratory Results 01/28/23 Range/Units 00:28 Influenza Type A Ag NEGATIVE (NEGATIVE) Influenza Type B Ag NEGATIVE (NEGATIVE) RSV (PCR) NEGATIVE (NEGATIVE) SARS-CoV-2 (PCR) NEGATIVE (NEGATIVE) Group A Strep Antibody NOT DETECTED (NEGATIVE) - Progress Progress: improved, re-examined Air Movement: good Progress Note: 01/28/23 01:38 57 years old with multiple medical problems including coronary artery disease with stenting, hypertension, tobacco abuse, COPD, chronic abdominal pain with multiple surgeries in the past she is evaluated for cough congestion/flulike symptoms. Patient is not in any distress. He is having chronic abdominal pain and given Percocet and is here. I have obtained COVID flu and RSV along with strep which are negative. I believe patient has viral etiology symptoms and given a dose of prednisone in here and will continue on the low-dose for few days to go home. Do not think he needs any other workup and is stable for discharge with outpatient follow-up. Discussed signs symptoms of worsening needing return to ER which he seems understanding. Blood Culture(s) Obtained: No Antibiotics given: No Counseled pt/family regarding: lab results, diagnosis, need for follow-up Medical Desision Making - Diagnostic Testing Diagnostic test were ordered, analyzed, and reviewed by me: Yes - Risk of complications The pt has a mod risk of morbidity or mortality based on: Need for prescription drug management - Departure Departure Disposition: Home Clinical Impression: Upper respiratory infection with cough and congestion Condition: Stable Critical Care Time: No Referrals: [facility] [Primary Care Provider] - Follow up with PCP 1 day Instructions: Viral Pharyngitis ([place]) Additional Instructions: Take pain medications which you have at home as needed. Continue with inhaler and nebulizer. Follow-up with primary care for reevaluation. Return to ER for worsening cough or if having difficulty breathing, persistent fever etc. Prescriptions: Prednisone 20 mg [Deltasone 20 mg] 40 mg PO DAILY 5 Days #10 tablet
[2023-01-28] MEDS ORDERED: DELTASONE 20 MG ONE (01:45)
== END 2023-01-28 02:00 | disposition home or self-care (01) ==
LOC: ED 23:42
DX: J06.9 Acute upper respiratory infection, unspecified (principal); R05.1 Acute cough; R09.81 Nasal congestion; J02.9 Acute pharyngitis, unspecified; I10 Essential (primary) hypertension; E78.5 Hyperlipidemia, unspecified; Z79.52 Long term (current) use of systemic steroids; Z79.02 Long term (current) use of antithrombotics/antiplatelets; Z79.899 Other long term (current) drug therapy; Z72.0 Tobacco use
CPT/HCPCS: 0241U; 87651; 99283; A9270-GY

== ENCOUNTER 2023-03-06 22:54 | Emergency (ER) | payer OTHER ==
[2023-03-06 23:25] VITALS: TEMP 98.4; O2SAT 95
[2023-03-06 23:41] LABS: Appearance Clear (Clear); Bacteria None Seen /HPF (None Seen); Bilirubin Negative (Negative); Blood Negative (Negative); Epithelial Cells None Seen /HPF (None Seen); Glucose, Urine Negative (Negative); Hyaline Casts NONE SEEN /LPF (0-2); Ketones Negative (Negative); Leukocyte Esterase Negative (Negative); Nitrite Negative (Negative); Ph 5.5 (4.6-8.0); Protein,Urine Dip Negative (Negative); RBC 0-2 /HPF (0-5); Urobilinogen 0.2 mg/dL (0.2); WBC 0-2 /HPF (0-5)
[2023-03-06 23:42] LABS: ADD URINE CULTURE? NO (NO)
--- NOTE | 2023-03-06 23:42 | ERPHSYRPT ---
- History of Present Illness Time Seen by Provider: 03/06/23 23:15 Source: patient Exam Limitations: no limitations Patient Subjective Stated Complaint: pt states that ever since he had his gall bladder removed in Sep 2022 he has had constant sharp bilat testicular pain (m oreso on left side) and states that he has had an ULS and CT completed at some point which were both negative so he was referred to a urologist and his appt is tomorrow morning at 1030. pt states that starting at 0800 becoming more severe to the point that he states he cannot tolerate it and it is making him nauseated. Triage Nursing Assessment: pt ambulated to room 9 independently with a slow steady gait after standing on scales for weight acquisition. pt is alert and oriented times three, able to move all extremities, able to speak in complete sentences, and with resp even and unlabored. pt is holding his groin. when asked twice by 2 different nurses each he refused to put on a patient gown for appropriate exam of testicles, stating "I'll drop my pants when the doctor looks but not before". reports that he is nauseated but hasn't vomited. denies urinary symptoms, states pain doesn't radiate anywhere, is constantly sharp and currently rated 9/10. Physician History: Patient is a 57-year-old male presents to our ED for evaluation of left scrotal pain. Patient states he has been experiencing bilateral scrotal pain since September. Patient states his left is now hurting more than his right. No trauma no fever. No hematuria or dysuria. No associated abdominal pain. Pain is constant. Pain worse with palpation to his left testicle. Pain improved with rest per patient. Patient voices no other complaints or concerns at this time. Patient advises that he has had an ultrasound and a CAT scan for this chronic pain. He states that both studies were negative. Patient reports that he currently has a follow-up appointment scheduled with his urologist tomorrow. Patient voices no other complaints or concerns at this time. Portions of this note were created with voice recognition technology. There may be grammatical, spelling, punctuation or sound alike errors Timing/Duration: other (Pain since September 2022) Severity: moderate Modifying Factors: Improves With: other (Palpation) Associated Symptoms: denies symptoms Allergies/Adverse Reactions: hydrocodone bitartrate [From Vicodin] Allergy (Verified 03/06/23 23:01) Rash Iodinated Contrast Media Allergy (Verified 03/06/23 23:01) ketorolac [From Toradol] Allergy (Verified 03/06/23 23:01) Penicillins Allergy (Verified 03/06/23 23:01) venlafaxine Allergy (Verified 03/06/23 23:01) codeine Adverse Reaction (Verified 03/06/23 23:01) codeine phosphate [From Codar D] Adverse Reaction (Verified 03/06/23 23:01) morphine Adverse Reaction (Verified 03/06/23 23:01) pseudoephedrine HCl [From Codar D] Adverse Reaction (Verified 03/06/23 23:01) Home Medications: Aspirin 81 gm Chew [Baby Aspirin 81 mg Chew] 81 mg PO DAILY 04/11/14 [History] Albuterol Sulfate [Proair Digihaler] 2 puff IH QID PRN PRN 09/11/20 [History] Atorvastatin Calcium 1 tab PO HS 09/11/20 [History] Budesonide/Formoterol Fumarate [Budesonide-Formoterol 160-4.5] 2 puffs IH BID 09/11/20 [History] Fluticasone Propionate [Flovent Diskus] 2 sprays IN DAILY 09/11/20 [History] PANTOPRAZOLE 40 mg Tablet [Protonix 40MG Tablet] 80 mg PO BID 09/11/20 [History] Ticagrelor [Brilinta] 90 mg PO BID 09/11/20 [History] Tiotropium [place] Inhaler [Spiriva 18 Mcg/Cap Inhaler] 2 puffs IH DAILY 09/11/20 [History] clonazePAM [Clonazepam] 2 mg PO UD PRN 09/11/20 [History] lisinopriL [Lisinopril] 2.5 mg PO BID 09/11/20 [History] Cholecalciferol (Vitamin D3) [Vitamin D3] 125 mcg PO DAILY 03/22/21 [History] Cyanocobalamin 500 Mcg [Vitamin B-12 500 MCG] 1,000 mcg PO DAILY 03/22/21 [History] Ranolazine 500 MG [Ranexa 500 MG] 500 mg PO BID 03/22/21 [History] Acetaminophen 500 mg [Tylenol Extra Strength 500 mg] 2,500 mg PO TID 03/30/21 [History] Nitroglycerin [Nitrolingual] 1 gm TL Q5MIN PRN MR X 3 PRN 03/30/21 [History] Hx Tetanus, Diphtheria Vaccination/Date Given: Yes Hx Influenza Vaccination/Date Given: No Hx Pneumococcal Vaccination/Date Given: No Immunizations Up to Date: Yes Travel Risk - International Travel Have you traveled outside of the country in past 3 weeks: No - Coronavirus Screening Are you exhibiting any of the following symptoms?: No Close contact with a COVID-19 positive Pt in past 14-21 Days: No - Vaccine Status Have you recieved a Covid-19 vaccination: Yes 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: [email or web address] - Vaccination Dates Date of 2cond Vaccination (if applicable): 2020 - Review of Systems Constitutional: No Symptoms, No Fever, No Chills Eyes: No Symptoms Ears, Nose, & Throat: No Symptoms Respiratory: No Symptoms, No Cough, No Dyspnea Cardiac: No Symptoms, No Chest Pain, No Edema, No Syncope Abdominal/Gastrointestinal: No Symptoms, No Abdominal Pain, No Nausea, No Vomiting, No Diarrhea Genitourinary Symptoms: No Symptoms, No Dysuria Musculoskeletal: No Symptoms, No Back Pain, No Neck Pain Skin: No Symptoms, No Rash Neurological: No Symptoms, No Dizziness, No Focal Weakness, No Sensory Changes Psychological: No Symptoms Endocrine: No Symptoms Hematologic/Lymphatic: No Symptoms Immunological/Allergic: No Symptoms All Other Systems: Reviewed and Negative - Past Medical History Pertinent Past Medical History: Yes Neurological History: Peripheral Neuropathy, TIA ENT History: No Pertinent History Cardiac History: Aneurysm, Coronary Artery Disease, High Cholesterol, Hypertension, Myocardial Infarction ([place]) Respiratory History: Asthma, COPD, Emphysema, Pneumonia, Sleep Apnea, Other Endocrine Medical History: Hypothyroidism Musculoskeletal History: Degenerative Disk Disease GI Medical History: Gallbladder Disease, Hernia History: Other Psycho-Social History: Anxiety Male Reproductive Disorders: No Pertinent History Other Medical History: CHRONIC BACK PAIN, carotid artery disease. KIDNEY STONES - Past Surgical History Past Surgical History: Yes Neuro Surgical History: No Pertinent History Cardiac: Cardiac Catheterization, Cardiac Stent Respiratory: Other Gastrointestinal: Cholecystectomy Genitourinary: No Pertinent History Musculoskeletal: Orthopedic Surgery Male Surgical History: No Pertinent History Other Surgical History: R lung cut a 1/4 inch off the top. 1989, back surgery , inspire placement, rt leg fx. drain placed for bile drainage - Social History Smoking Status: Current every day smoker How long have you smoked: 48 yrs Exposure to second hand smoke: No Drug Use: none Patient Lives Alone: No - Nursing Vital Signs Nursing Vital Signs: Initial Vital Signs Temperature 98.4 F 03/06/23 23:03 Pulse Rate 93 H 03/06/23 23:03 Respiratory Rate 16 03/06/23 23:03 Blood Pressure 124/74 03/06/23 23:03 O2 Sat by Pulse Oximetry 95 03/06/23 23:03 Pain Scale Pain Intensity 9 - Physical Exam General Appearance: no apparent distress, alert Ears, Nose, Throat Exam: normal ENT inspection Neck Exam: normal inspection, non-tender, full range of motion Respiratory Exam: normal breath sounds, airway intact, No respiratory distress Gastrointestinal/Abdomen Exam: soft, normal bowel sounds, No tenderness, No mass Male Genitalia Exam: other (Left testicular tenderness. No swelling. No signs of infection. No increased heat production.) Back Exam: normal inspection, normal range of motion, No CVA tenderness, No vertebral tenderness Neurologic Exam: alert, oriented x 3, cooperative, normal mood/affect, nml cerebellar function, nml station & gait, sensation nml, No motor deficits Skin Exam: normal color, warm, dry, No rash Lymphatic Exam: No adenopathy SpO2 Interpretation: normal SpO2: 95 O2 Delivery: Room Air - Course Nursing assessment & vital signs reviewed: Yes Ordered Tests: Active Orders 24 hr Category Date Time Status TESTICLE [US] Stat Exams 03/06/23 23:16 Ordered UA W/RFX UR CULTURE Stat Lab 03/06/23 23:33 Received Medication Summary Discontinued Medications Generic Name Dose Route Start Last Admin Trade Name Freq PRN Reason Stop Dose Admin Droperidol 2.5 mg 03/06/23 23:13 03/06/23 23:32 Droperidol 5 Mg/2 Ml Vial IM 03/06/23 23:14 Not Given STAT ONE Droperidol Confirm 03/06/23 23:23 Droperidol 5 Mg/2 Ml Vial Administered 03/06/23 23:24 Dose 5 mg .ROUTE .STK-MED ONE - Progress Progress: improved Progress Note: 49-year-old male presents to our ED with chronic testicular pain. Physical exam reveals some tenderness at the left testicle. Physical exam otherwise unremarkable. Left testicular ultrasound ordered. 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 Patient states that he had experienced some nausea. Intramuscular droperidol ordered as this is both an effective pain and nausea medication. Patient requested Dilaudid. We advised patient to try the droperidol first. Patient refused. Patient demanded his Dilaudid. Patient left AGAINST MEDICAL ADVICE. Patient absconded prior to ER physician having the opportunity to discuss an alternative plan of care. Complexity problem addressed is low acute uncomplicated No critical care time Complexity of data reviewed and analyzed is none. Patient left AMA prior to imaging study Risk of complication risk of morbidity/mortality patient management is none. Patient absconded./Patient left AMA Disposition patient absconded/left AGAINST MEDICAL ADVICE 03/06/23 23:46 - Departure Departure Disposition: AMA Clinical Impression: Testicular pain, left Condition: Stable Critical Care Time: No Referrals: [facility]OS[facility],'[facility] [Primary Care Provider] - Follow up/PCP as directed
[2023-03-06 23:58] VITALS: BP 133/76; PULSE 92; RESP 20
[2023-03-07 01:05] LABS: CHLAMYDIA DNA NOT DETECTED (NEGATIVE); GC DNA Probe NOT DETECTED (NEGATIVE)
== END 2023-03-06 23:40 | disposition left against medical advice (07) ==
LOC: ED 22:54
DX: N50.82 Scrotal pain (principal); E78.5 Hyperlipidemia, unspecified; I10 Essential (primary) hypertension; Z79.02 Long term (current) use of antithrombotics/antiplatelets; Z79.899 Other long term (current) drug therapy; Z72.0 Tobacco use
CPT/HCPCS: 81001; 87491; 87591; 99281

== ENCOUNTER 2023-06-09 15:16 | Emergency (ER) | payer OTHER ==
--- NOTE | 2023-06-09 15:23 | ERPHSYRPT ---
- History of Present Illness Time Seen by Provider: 06/09/23 15:23 Historian: patient, family Exam Limitations: no limitations Physician History: This is a 57-year-old white male patient who sees a machine setter and his primary care provider at the [facility] who has significant cardiac history and presents with intermittent left shoulder pain that is been present for approximately 2 weeks. The pain worsens with movement. He denies any kind of trauma to the area. The pain is typically localized in this area. Today there was episodes of some numbness in the upper arm as well as some mild chest discomfort in the upper outer chest wall. He has not been having chest pain or shortness of breath associated with this left shoulder pain. The patient also states that he had a couple episodes of diaphoresis. Patient is a daily smoker of cigarettes. Patient has had a history of 6 myocardial infarction's and has had 6 cardiac stents placed. His symptoms today are different than his other episodes of myocardial infarction. He just wanted to be checked out to be sure it was or was not an acute myocardial infarction. Patient has a history of peripheral neuropathy, TIAs, coronary disease, asthma, COPD, degenerative disc disease, chronic back pain and hypothyroidism. Timing/Duration: today Activities at Onset: activity (Pain worsens with movement of the left shoulder) Quality: aching Location: other (Left shoulder) Chest Pain Radiation: arm (Left upper arm intermittent numbness with movement) Severity of Pain-Max: moderate Severity of Pain-Current: mild Modifying Factors: Improves With: other (Pain localized in left shoulder and worsens with movement) Associated Symptoms: diaphoresis (Patient had a couple of episodes earlier today. Not necessarily related to the left shoulder pain) Prior Chest Pain/Cardiac Workup: cardiac cath, heart attack Nitro Today/Relief: no nitro taken today Aspirin Treatment Today: 81 mg x 4, provided by ED Allergies/Adverse Reactions: hydrocodone bitartrate [From Vicodin] Allergy (Verified 06/09/23 15:29) Rash Iodinated Contrast Media Allergy (Verified 06/09/23 15:29) ketorolac [From Toradol] Allergy (Verified 06/09/23 15:29) Penicillins Allergy (Verified 06/09/23 15:29) venlafaxine Allergy (Verified 06/09/23 15:29) codeine Adverse Reaction (Verified 06/09/23 15:29) codeine phosphate [From Codar D] Adverse Reaction (Verified 06/09/23 15:29) morphine Adverse Reaction (Verified 06/09/23 15:29) pseudoephedrine HCl [From eROIar D] Adverse Reaction (Verified 06/09/23 15:29) Home Medications: Aspirin 81 gm Chew [Baby Aspirin 81 mg Chew] 81 mg PO DAILY 04/11/14 [History] Albuterol Sulfate [Proair Digihaler] 2 puff IH QID PRN PRN 09/11/20 [History] Atorvastatin Calcium 1 tab PO HS 09/11/20 [History] Ticagrelor [Brilinta] 90 mg PO BID 09/11/20 [History] clonazePAM [Clonazepam] 2 mg PO UD PRN 09/11/20 [History] Cholecalciferol (Vitamin D3) [Vitamin D3] 125 mcg PO DAILY 03/22/21 [History] Cyanocobalamin 500 Mcg [Vitamin B-12 500 MCG] 1,000 mcg PO DAILY 03/22/21 [History] Acetaminophen 500 mg [Tylenol Extra Strength 500 mg] 500 mg PO TID 03/30/21 [History] Nitroglycerin [Nitrolingual] 1 gm TL Q5MIN PRN MR X 3 PRN 03/30/21 [History] Folic Acid 1 mg [Folate 1 mg] 1 mg PO DAILY 03/06/23 [History] Levothyroxine Sodium 25 Mcg [Synthroid 25 Mcg] 25 mcg PO DAILY 03/06/23 [History] Loratadine 10 mg [Claritin 10 mg] 10 mg PO DAILY PRN PRN 03/06/23 [History] Mometasone Furoate [Asmanex] 2 puffs IH BID 03/06/23 [History] Naloxone HCl 4 mg NS UD PRN 03/06/23 [History] Olodaterol/ Tiotrop 2.5mcg/Act 2 puff IH DAILY 03/06/23 [History] Omeprazole 40 mg PO BIDAC 03/06/23 [History] Hx Tetanus, Diphtheria Vaccination/Date Given: Yes Hx Influenza Vaccination/Date Given: No Hx Pneumococcal Vaccination/Date Given: No Travel Risk - International Travel Have you traveled outside of the country in past 3 weeks: No - Emerging Infectious Disease Are you exhibiting symptoms associated with any current EIDs: No - Review of Systems Constitutional: No Symptoms Eyes: No Symptoms Ears, Nose, & Throat: No Symptoms Respiratory: No Symptoms Cardiac: No Symptoms Abdominal/Gastrointestinal: No Symptoms Genitourinary Symptoms: No Symptoms Musculoskeletal: Joint Pain (Left shoulder pain worse with movement) Skin: No Symptoms Neurological: No Symptoms Psychological: No Symptoms Endocrine: No Symptoms Hematologic/Lymphatic: No Symptoms Immunological/Allergic: No Symptoms All Other Systems: Reviewed and Negative - Past Medical History Pertinent Past Medical History: Yes Neurological History: Peripheral Neuropathy, TIA ENT History: No Pertinent History Cardiac History: Aneurysm, Coronary Artery Disease, High Cholesterol, Hype rtension, Myocardial Infarction ([place]) Respiratory History: Asthma, COPD, Emphysema, Pneumonia, Sleep Apnea, Other Endocrine Medical History: Hypothyroidism Musculoskeletal History: Degenerative Disk Disease GI Medical History: Gallbladder Disease, Hernia History: Other Psycho-Social History: Anxiety Male Reproductive Disorders: No Pertinent History Other Medical History: CHRONIC BACK PAIN, carotid artery disease. KIDNEY STONES - Past Surgical History Past Surgical History: Yes Neuro Surgical History: No Pertinent History Cardiac: Cardiac Catheterization, Cardiac Stent Respiratory: Other Gastrointestinal: Cholecystectomy Genitourinary: No Pertinent History Musculoskeletal: Orthopedic Surgery Male Surgical History: No Pertinent History Other Surgical History: R lung cut a 1/4 inch off the top. 1988, back surgery , inspire placement, rt leg fx. drain placed for bile drainage - Social History Smoking Status: Current every day smoker How long have you smoked: 48 yrs Exposure to second hand smoke: No Drug Use: none Patient Lives Alone: No - Nursing Vital Signs Nursing Vital Signs: Initial Vital Signs Temperature 97.3 F 06/09/23 15:18 Pulse Rate 84 06/09/23 15:18 Respiratory Rate 12 06/09/23 15:18 Blood Pressure 144/80 06/09/23 15:18 O2 Sat by Pulse Oximetry 97 06/09/23 15:18 Pain Scale Pain Intensity 6 - Physical Exam General Appearance: no apparent distress, alert, anxiety Eye Exam: PERRL/EOMI, eyes nml inspection Ears, Nose, Throat Exam: normal ENT inspection, moist mucous membranes Neck Exam: normal inspection, non-tender, supple, full range of motion Respiratory Exam: normal breath sounds, lungs clear, airway intact, No chest tenderness, No respiratory distress Cardiovascular Exam: regular rate/rhythm, normal heart sounds, normal peripheral pulses Gastrointestinal/Abdomen Exam: soft, normal bowel sounds, No tenderness Rectal Exam: not done Back Exam: normal inspection, normal range of motion, No CVA tenderness, No vertebral tenderness Extremity Exam: normal inspection, normal range of motion, pelvis stable Neurologic Exam: alert, oriented x 3, cooperative, calculus teacher II-XII nml as tested, normal mood/affect, nml cerebellar function, nml station & gait, sensation nml Skin Exam: normal color, warm, dry Lymphatic Exam: No adenopathy SpO2 Interpretation: normal O2 Delivery: Room Air - Course Nursing assessment & vital signs reviewed: Yes Ordered Tests: Active Orders 24 hr Category Date Time Status AMA [Release AMA] OM.NOW Care 06/09/23 18:15 Ordered [employer] Receptionist STAT Care 06/09/23 15:24 Active EKG-ER Only STAT Care 06/09/23 15:23 Active IV Insertion STAT Care 06/09/23 15:23 Active Pulse Oximetry (ED) STAT Care 06/09/23 15:23 Active CBC W DIFF Stat Lab 06/09/23 15:50 Completed CMP Stat Lab 06/09/23 15:50 Completed NT PRO BNPII Stat Lab 06/09/23 15:50 Completed PROTIME WITH INR Stat Lab 06/09/23 15:50 Completed TROPONIN Q4H Lab 06/09/23 15:50 Completed Medication Summary Discontinued Medications Generic Name Dose Route Start Last Admin Trade Name Freq PRN Reason Stop Dose Admin Aspirin 324 mg 06/09/23 15:23 06/09/23 15:46 Aspirin 81 Mg Tab.Chew PO 06/09/23 15:24 324 mg STAT ONE Administration Aspirin Confirm 06/09/23 15:46 Aspirin 81 Mg Tab.Chew Administered 06/09/23 15:47 Dose 81 mg .ROUTE .STK-MED ONE Hydromorphone HCl 1 mg 06/09/23 16:39 06/09/23 17:01 Hydromorphone 1 Mg/1ml Inj IV 06/09/23 16:40 1 mg STAT ONE Administration Hydromorphone HCl Confirm 06/09/23 16:58 Hydromorphone 1 Mg/1ml Inj Administered 06/09/23 16:59 Dose 1 mg .ROUTE .STK-MED ONE Ondansetron HCl 4 mg 06/09/23 16:39 06/09/23 17:00 Ondansetron Hcl 4 Mg/2 Ml Vial IV 06/09/23 16:40 4 mg STAT ONE Administration Ondansetron HCl Confirm 06/09/23 16:58 Ondansetron Hcl 4 Mg/2 Ml Vial Administered 06/09/23 16:59 Dose 4 mg .ROUTE .STK-MED ONE Lab/Rad Data: Laboratory Result Diagrams 06/09/23 15:50 06/09/23 15:50 Laboratory Results 06/09/23 06/09/23 06/09/23 Range/Units 15:50 15:50 15:50 WBC 6.1 Corrected WBC (auto) RBC 3.96 L Hgb 9.2 L Hct 31.5 L MCV 79.5 MCH 23.2 L MCHC 29.2 L RDW 18.9 H Plt Count 228 MPV 9.1 Gran % 61.5 Immature Gran % (Auto) 0.2 Nucleat RBC Rel Count 0.0 Eos # (Auto) 0.09 Immature Gran # (Auto) 0.01 Absolute Lymphs (auto) 1.86 Absolute Monos (auto) 0.36 Absolute Nucleated RBC 0.00 Add Manual Diff Lymphocytes % 30.6 Monocytes % 5.9 Eosinophils % 1.5 Basophils % 0.3 Absolute Granulocytes 3.73 Basophils # 0.02 PT 11.6 (9.4-12.5) SECONDS INR 1.07 (0.8-3.0) Sodium (135-145) mmol/L Potassium (3.5-5.1) mmol/L Chloride (98-107) mmol/L Carbon Dioxide (22-30) mmol/L Anion Gap (5-15) MEQ/L BUN (9-20) mg/dL Creatinine (0.66-1.25) mg/dL Estimated GFR ML/MIN Glucose (74-106) mg/dL Calcium (8.4-10.2) mg/dL Total Bilirubin (0.2-1.3) mg/dL AST (17-59) U/L ALT (0-50) U/L Alkaline Phosphatase (38-126) U/L Troponin I < 0.012 (0.000-0.033) ng/mL NT-Pro-B Natriuret Pep (<300) pg/mL Serum Total Protein (6.3-8.2) g/dL Albumin (3.5-5.0) g/dL Slides for Path Review 06/09/23 06/09/23 Range/Units 15:50 15:23 WBC Cancelled Corrected WBC (auto) Cancelled RBC Cancelled Hgb Cancelled Hct Cancelled MCV Cancelled MCH Cancelled MCHC Cancelled RDW Cancelled Plt Count Cancelled MPV Cancelled Gran % Cancelled Immature Gran % (Auto) Cancelled Nucleat RBC Rel Count Cancelled Eos # (Auto) Cancelled Immature Gran # (Auto) Cancelled Absolute Lymphs (auto) Cancelled Absolute Monos (auto) Cancelled Absolute Nucleated RBC Cancelled Add Manual Diff Cancelled Lymphocytes % Cancelled Monocytes % Cancelled Eosinophils % Cancelled Basophils % Cancelled Absolute Granulocytes Cancelled Basophils # Cancelled PT (9.4-12.5) SECONDS INR (0.8-3.0) Sodium 136 (135-145) mmol/L Potassium 4.2 (3.5-5.1) mmol/L Chloride 102 (98-107) mmol/L Carbon Dioxide 26 (22-30) mmol/L Anion Gap 12.3 (5-15) MEQ/L BUN 19 (9-20) mg/dL Creatinine 1.30 H (0.66-1.25) mg/dL Estimated GFR 63.7 ML/MIN Glucose 127 H (74-106) mg/dL Calcium 9.1 (8.4-10.2) mg/dL Total Bilirubin 0.50 (0.2-1.3) mg/dL AST 24 (17-59) U/L ALT 15 (0-50) U/L Alkaline Phosphatase 96 (38-126) U/L Troponin I (0.000-0.033) ng/mL NT-Pro-B Natriuret Pep 225 (<300) pg/mL Serum Total Protein 8.2 (6.3-8.2) g/dL Albumin 4.0 (3.5-5.0) g/dL Slides for Path Review Cancelled - Progress Progress: improved, re-examined Air Movement: good Progress Note: 06/09/23 17:54 My medical decision making and the assignment of moderate complexity to this patient's medical issue today is based on review of the patient's past medical history, review the patient's medication list, review the patient drug allergy list, history present illness and physical findings on examination. The workup in this patient includes placement of intravenous line, 4 baby aspirin, twelve- lead EKG, troponin level, BNP level, CBC, CMP, twelve-lead EKG. We will repeat the troponin level and twelve-lead EKG in approximately 2 to 3 hours. Differential diagnosis muscle skeletal pain, myocardial infarction 06/09/23 18:15 Patient's first twelve-lead EKG and troponin levels show no acute changes. Patient is refusing any further workup and is leaving AGAINST MEDICAL ADVICE. Patient is aware of the risk benefits and alternatives to staying for further testing, possibly staying in the hospital for observation, or transfer to another facility. Patient is signing AGAINST MEDICAL ADVICE form. Blood Culture(s) Obtained: No Antibiotics given: No Counseled pt/family regarding: lab results, diagnosis, need for follow-up Medical Desision Making - Independent Historian Additional History obtained from: Spouse - Diagnostic Testing Diagnostic test were ordered, analyzed, and reviewed by me: Yes - Risk of complications Low Risk: Low risk of morbidity from additional dx testing or treatment - Departure Departure Disposition: AMA Clinical Impression: Nonspecific chest pain, Left shoulder pain Condition: Stable Critical Care Time: No Referrals: [facility]OSPITAL,'S [Primary Care Provider] - Follow up/PCP as directed Additional Instructions: Return to the emergency department if symptoms worsen. Call your primary care provider on 06/11/2023 to make arrangement for further evaluation and management and to be seen in the next 3 to 5 days.
[2023-06-09 15:29] VITALS: TEMP 97.3
[2023-06-09] MEDS ORDERED: BABY ASPIRIN 81 MG CHEW ONE (15:46)
[2023-06-09] MEDS: BABY ASPIRIN 81 MG CHEW PO ONE (15:46)
[2023-06-09 15:58] LABS: Absolute Neutrophil Ct (ANC) 3.73 x10^3/uL (1.4-6.9); BASOPHIL % 0.3 % (0.0-0.4); Basophil (Absolute #) 0.02 x10^3/uL (0-0.4); Eosinophil % 1.5 % (0.00-5.0); Eosinophil (Absolute #) 0.09 x10^3/uL (0-0.5); Hematocrit 31.5 % (42-50); Hemoglobin 9.2 g/dL (12.5-18.0); IMMATURE GRAN # 0.01 x10^3u/L (0.00-0.03); IMMATURE GRAN % 0.2 % (0.00-0.4); Lymphocyte (Absolute #) 1.86 x10^3/uL (1.0-4.6); Lymphocytes % 30.6 % (24.0-44.0); Mean Cell Volume 79.5 fL (78-100); Mean Corpuscular Hemoglobin 23.2 pg (26-32); Mean Corpuscular Hgb Concent. 29.2 g/dL (32-36); Mean Platelet Volume 9.1 fL (7.5-11.0); Monocyte (Absolute #) 0.36 x10^3/uL (0.0-1.3); Monocytes % 5.9 % (0.0-12.0); Neutrophil % 61.5 % (36.0-66.0); Platelet Count 228 x10^3/uL (150-450); Red Blood Count 3.96 x10^6/uL (4.1-5.6); Red Cell Distribution Width 18.9 % (11.5-14.0); White Blood Count 6.1 x10^3/uL (4.0-10.5)
[2023-06-09 16:12] LABS: INR 1.07 (0.8-3.0); PROTIME 11.6 SECONDS (9.4-12.5)
[2023-06-09 16:22] LABS: ANION GAP 12.3 MEQ/L (5-15); BILIRUBIN,TOTAL 0.5 mg/dL (0.2-1.3); Calcium 9.1 mg/dL (8.4-10.2); Creatinine 1 1.3 mg/dL (0.66-1.25); EST GLOMERULAR FILTRATION RATE 63.7 ML/MIN; Potassium 4.2 mmol/L (3.5-5.1); Total Protein 8.2 g/dL (6.3-8.2)
[2023-06-09] MEDS ORDERED: Hydromorphone 1 mg/ml Injection ONE (16:58)
[2023-06-09] MEDS ORDERED: Zofran 4 MG/2 ML VIAL ONE (16:58)
[2023-06-09] MEDS: Zofran 4 MG/2 ML VIAL IV ONE (17:00)
[2023-06-09] MEDS: Hydromorphone 1 mg/ml Injection IV ONE (17:01)
[2023-06-09 17:42] VITALS: PULSE 72; RESP 16; O2SAT 75
[2023-06-09 18:29] VITALS: BP 123/73
== END 2023-06-09 18:33 | disposition left against medical advice (07) ==
LOC: ED 15:16
DX: R07.9 Chest pain, unspecified (principal); M25.512 Pain in left shoulder; E78.5 Hyperlipidemia, unspecified; I10 Essential (primary) hypertension; Z79.02 Long term (current) use of antithrombotics/antiplatelets; Z79.899 Other long term (current) drug therapy; Z72.0 Tobacco use
CPT/HCPCS: 36000; 36415; 80053; 83880; 84484; 85025; 85610; 93005; 93041; 94760; 96374; 96375; 99284; J1170; J2405; A9270-GY

== ENCOUNTER 2023-08-25 23:09 | Emergency (ER) | payer OTHER ==
[2023-08-25 23:42] VITALS: BP 130/66; PULSE 78; RESP 14; TEMP 97.4; O2SAT 97
--- NOTE | 2023-08-25 23:47 | ERPHSYRPT ---
- History of Present Illness Time Seen by Provider: 08/25/23 23:47 Source: patient Exam Limitations: no limitations Patient Subjective Stated Complaint: pt states swelling to left foot/ ankle Triage Nursing Assessment: pt ambulated into the er; pt is axo x4; c/o edema; 2+ pitting edema to left foot and ankle; strong left pedal pulse; no redness or streaking present; no warmth present to LLE; good cap refill to LLE; skin PDW; vitals wnl Physician History: The patient, with a history of multiple heart attacks and currently on blood thinners (Plavix), presented with sudden onset of left foot swelling. The swelling was localized to the foot and did not extend to the rest of the leg. The patient reported no associated pain, except for mild discomfort when pressure was applied around the ankle. The patient denied any recent trauma or injury to the foot. The swelling was not accompanied by warmth or other signs of infection. The patient had been active and mobile prior to the onset of the swelling. Despite the patient's history of heart conditions, there were no reported symptoms suggestive of heart failure such as shortness of breath or chest pain. The patient's medical regimen included blood thinners, which had been adjusted recently with a switch from Belinta to Plavix and a reduction in dosage. Timing/Duration: today Severity: mild Modifying Factors: Improves With: nothing Associated Symptoms: denies symptoms Allergies/Adverse Reactions: hydrocodone bitartrate [From Vicodin] Allergy (Verified 08/25/23 23:35) Rash Iodinated Contrast Media Allergy (Verified 08/25/23 23:35) ketorolac [From Toradol] Allergy (Verified 08/25/23 23:35) Penicillins Allergy (Verified 08/25/23 23:35) venlafaxine Allergy (Verified 08/25/23 23:35) codeine Adverse Reaction (Verified 08/25/23 23:35) codeine phosphate [From Codar D] Adverse Reaction (Verified 08/25/23 23:35) morphine Adverse Reaction (Verified 08/25/23 23:35) pseudoephedrine HCl [From Codar D] Adverse Reaction (Verified 08/25/23 23:35) Home Medications: Aspirin 81 gm Chew [Baby Aspirin 81 mg Chew] 81 mg PO DAILY 04/11/14 [History] Albuterol Sulfate [Proair Digihaler] 2 puff IH QID PRN PRN 09/11/20 [History] Atorvastatin Calcium 1 tab PO HS 09/11/20 [History] Ticagrelor [Brilinta] 90 mg PO BID 09/11/20 [History] clonazePAM [Clonazepam] 2 mg PO UD PRN 09/11/20 [History] Cholecalciferol (Vitamin D3) [Vitamin D3] 125 mcg PO DAILY 03/22/21 [History] Cyanocobalamin 500 Mcg [Vitamin B-12 500 MCG] 1,000 mcg PO DAILY 03/22/21 [History] Acetaminophen 500 mg [Tylenol Extra Strength 500 mg] 500 mg PO TID 03/30/21 [History] Nitroglycerin [Nitrolingual] 1 gm TL Q5MIN PRN MR X 3 PRN 03/30/21 [History] Folic Acid 1 mg [Folate 1 mg] 1 mg PO DAILY 03/06/23 [History] Levothyroxine Sodium 25 Mcg [Synthroid 25 Mcg] 25 mcg PO DAILY 03/06/23 [History] Loratadine 10 mg [Claritin 10 mg] 10 mg PO DAILY PRN PRN 03/06/23 [History] Mometasone Furoate [Asmanex] 2 puffs IH BID 03/06/23 [History] Naloxone HCl 4 mg NS UD PRN 03/06/23 [History] Olodaterol/ Tiotrop 2.5mcg/Act 2 puff IH DAILY 03/06/23 [History] Omeprazole 40 mg PO BIDAC 03/06/23 [History] Hx Tetanus, Diphtheria Vaccination/Date Given: Yes Hx Influenza Vaccination/Date Given: No Hx Pneumococcal Vaccination/Date Given: No Immunizations Up to Date: No Travel Risk - International Travel Have you traveled outside of the country in past 3 weeks: No - Emerging Infectious Disease Are you exhibiting symptoms associated with any current EIDs: No - Review of Systems All Other Systems: Reviewed and Negative - Past Medical History Pertinent Past Medical History: Yes Neurological History: Peripheral Neuropathy, TIA ENT History: No Pertinent History Cardiac History: Aneurysm, Coronary Artery Disease, High Cholesterol, Hypertension, Myocardial Infarction ([place]) Respiratory History: Asthma, COPD, Emphysema, Pneumonia, Sleep Apnea, Other Endocrine Medical History: Hypothyroidism Musculoskeletal History: Degenerative Disk Disease GI Medical History: Gallbladder Disease, Hernia History: Other Psycho-Social History: Anxiety Male Reproductive Disorders: No Pertinent History Other Medical History: CHRONIC BACK PAIN, carotid artery disease. KIDNEY STONES - Past Surgical History Past Surgical History: Yes Neuro Surgical History: No Pertinent History Cardiac: Cardiac Catheterization, Cardiac Stent Respiratory: Other Gastrointestinal: Cholecystectomy Genitourinary: No Pertinent History Musculoskeletal: Orthopedic Surgery Male Surgical History: No Pertinent History Other Surgical History: R lung cut a 1/4 inch off the top. 1988, back surgery , inspire placement, rt leg fx. drain placed for bile drainage - Social History Smoking Status: Current every day smoker How long have you smoked: 48 yrs Exposure to second hand smoke: No Drug Use: none Patient Lives Alone: No - Social Determinants of Health Will the patient participate in the screening: Declined to provide - Nursing Vital Signs Nursing Vital Signs: Initial Vital Signs Temperature 97.4 F 08/25/23 23:35 Pulse Rate 78 08/25/23 23:35 Respiratory Rate 14 08/25/23 23:35 Blood Pressure 130/66 08/25/23 23:35 O2 Sat by Pulse Oximetry 97 08/25/23 23:35 Pain Scale Pain Intensity 0 - Physical Exam General Appearance: no apparent distress Respiratory Exam: normal breath sounds, lungs clear, airway intact, No respiratory distress Cardiovascular Exam: regular rate/rhythm, normal heart sounds, capillary refill <2 sec, edema (left foot) Extremity Exam: pedal edema (left foot), No jonny's sign, No inflammation, No tenderness Neurologic Exam: alert, oriented x 3, cooperative Skin Exam: normal color, warm, dry SpO2 Interpretation: normal SpO2: 97 O2 Delivery: Room Air - Course Nursing assessment & vital signs reviewed: Yes - Progress Progress: unchanged Progress Note: Patient has localized left foot and ankle swelling with no erythema, painful range of motion or tenderness to palpation. Patient is on antiplatelet therapy and was previously on Brilinta now on only Plavix. He denies any chest pain shortness of breath. There is no swelling proximal to the ankle and all DVT physical exam testing negative today. No signs of infection or injury. I encouraged the patient to keep the left lower extremity elevated above the level of the heart and use a compression sleeve around the foot and ankle. If swelling progresses or shortness of breath develops please return the emergency room for emergent evaluation. Counseled pt/family regarding: diagnosis, need for follow-up Medical Desision Making - Diagnostic Testing Diagnostic test were ordered, analyzed, and reviewed by me: No - Risk of complications Low Risk: Low risk of morbidity from additional dx testing or treatment - Departure Departure Disposition: Home Clinical Impression: Localized swelling of left foot Condition: Good Critical Care Time: No Referrals: [facility]OSP[facility],'[facility] [Primary Care Provider] - Follow up/PCP as directed Instructions: Dependent Edema (DC)
== END 2023-08-26 00:04 | disposition home or self-care (01) ==
LOC: ED 23:09
DX: M79.89 Other specified soft tissue disorders (principal); E78.5 Hyperlipidemia, unspecified; I10 Essential (primary) hypertension; Z79.02 Long term (current) use of antithrombotics/antiplatelets; Z79.899 Other long term (current) drug therapy; Z72.0 Tobacco use
CPT/HCPCS: 99281

== ENCOUNTER 2023-09-15 18:05 | Emergency (ER) | payer OTHER ==
[2023-09-15 18:16] VITALS: TEMP 97; O2SAT 95
--- NOTE | 2023-09-15 18:50 | ERPHSYRPT ---
- History of Present Illness Time Seen by Provider: 09/15/23 18:45 Source: patient, family Exam Limitations: no limitations Patient Subjective Stated Complaint: pt here for swelling to left foot and ankle, denies any injury, he states he is currently on 2 antiboitics and is not getting better Triage Nursing Assessment: pt alert, walked in, resp easy skin w/d/p,has swelling to left foot and ankle with warmth and pain Physician History: Pt has 2 week Hx of pain and swelling left foot - denies any injury. Is awaiting left testicle removal for chronic pain and this is nontender without swelling or erythema. \ Tender left lwer leg and foot. pulses intact. erythema with swelling - neG US at [facility] a week or so ago. Discussed risks/benefits of lab US and Tx with pt and family including CBC, CMP, Lactate, ESR, CT, US, ( Pt states allergic to many but wilver Dilaudid and prefers that for pain) and they wish to proceed. THese are ordered. Results discussed with pt and family. Method of Injury: unknown Occurred: days ago Quality: constant, sharpness Severity of Pain-Max: moderate Severity of Pain-Current: moderate Lower Extremities Pain: leg: left, foot: left, ankle: left Modifying Factors: Improves With: movement Associated Symptoms: none Allergies/Adverse Reactions: hydrocodone bitartrate [From Vicodin] Allergy (Verified 09/15/23 18:13) Rash Iodinated Contrast Media Allergy (Verified 09/15/23 18:13) ketorolac [From Toradol] Allergy (Verified 09/15/23 18:13) Penicillins Allergy (Verified 09/15/23 18:13) venlafaxine Allergy (Verified 09/15/23 18:13) codeine Adverse Reaction (Verified 09/15/23 18:13) codeine phosphate [From Codar D] Adverse Reaction (Verified 09/15/23 18:13) morphine Adverse Reaction (Verified 09/15/23 18:13) pseudoephedrine HCl [From Codar D] Adverse Reaction (Verified 09/15/23 18:13) Home Medications: Aspirin 81 gm Chew [Baby Aspirin 81 mg Chew] 81 mg PO DAILY 04/11/14 [History] Albuterol Sulfate [Proair Digihaler] 2 puff IH QID PRN PRN 09/11/20 [History] Atorvastatin Calcium 1 tab PO HS 09/11/20 [History] Ticagrelor [Brilinta] 90 mg PO BID 09/11/20 [History] clonazePAM [Clonazepam] 2 mg PO UD PRN 09/11/20 [History] Cholecalciferol (Vitamin D3) [Vitamin D3] 125 mcg PO DAILY 03/22/21 [History] Cyanocobalamin 500 Mcg [Vitamin B-12 500 MCG] 1,000 mcg PO DAILY 03/22/21 [History] Acetaminophen 500 mg [Tylenol Extra Strength 500 mg] 500 mg PO TID 03/30/21 [History] Nitroglycerin [Nitrolingual] 1 gm TL Q5MIN PRN MR X 3 PRN 03/30/21 [History] Folic Acid 1 mg [Folate 1 mg] 1 mg PO DAILY 03/06/23 [History] Levothyroxine Sodium 25 Mcg [Synthroid 25 Mcg] 25 mcg PO DAILY 03/06/23 [History] Loratadine 10 mg [Claritin 10 mg] 10 mg PO DAILY PRN PRN 03/06/23 [History] Mometasone Furoate [Asmanex] 2 puffs IH BID 03/06/23 [History] Naloxone HCl 4 mg NS UD PRN 03/06/23 [History] Olodaterol/ Tiotrop 2.5mcg/Act 2 puff IH DAILY 03/06/23 [History] Omeprazole 40 mg PO BIDAC 03/06/23 [History] Hx Tetanus, Diphtheria Vaccination/Date Given: Yes Hx Influenza Vaccination/Date Given: No Hx Pneumococcal Vaccination/Date Given: No Immunizations Up to Date: Yes Travel Risk - International Travel Have you traveled outside of the country in past 3 weeks: No - Emerging Infectious Disease Are you exhibiting symptoms associated with any current EIDs: No - Review of Systems Constitutional: No Fever, No Chills Eyes: No Symptoms Ears, Nose, & Throat: No Symptoms Respiratory: No Cough, No Dyspnea Cardiac: No Chest Pain, No Edema, No Syncope Abdominal/Gastrointestinal: No Abdominal Pain, No Nausea, No Vomiting, No Diarrhea Genitourinary Symptoms: No Dysuria Musculoskeletal: No Back Pain, No Neck Pain Skin: No Rash Neurological: No Dizziness, No Focal Weakness, No Sensory Changes Psychological: No Symptoms Endocrine: No Symptoms Hematologic/Lymphatic: No Symptoms Immunological/Allergic: No Symptoms All Other Systems: Reviewed and Negative - Past Medical History Pertinent Past Medical History: Yes Neurological History: Peripheral Neuropathy, TIA ENT History: No Pertinent History Cardiac History: Aneurysm, Coronary Artery Disease, High Cholesterol, Hypertension, Myocardial Infarction (MS) Respiratory History: Asthma, COPD, Emphysema, Pneumonia, Sleep Apnea, Other Endocrine Medical History: Hypothyroidism Musculoskeletal History: Degenerative Disk Disease GI Medical History: Gallbladder Disease, Hernia History: Other Psycho-Social History: Anxiety Male Reproductive Disorders: No Pertinent History Other Medical History: CHRONIC BACK PAIN, carotid artery disease. KIDNEY STONES - Past Surgical History Past Surgical History: Yes Neuro Surgical History: No Pertinent History Cardiac: Cardiac Catheterization, Cardiac Stent Respiratory: Other Gastrointestinal: Cholecystectomy Genitourinary: No Pertinent History Musculoskeletal: Orthopedic Surgery Male Surgical History: No Pertinent History Other Surgical History: R lung cut a 1/4 inch off the top. 1988, back surgery , inspire placement, rt leg fx. drain placed for bile drainage - Social History Smoking Status: Current every day smoker How long have you smoked: 48 yrs Exposure to second hand smoke: No Drug Use: none Patient Lives Alone: No - Social Determinants of Health Will the patient participate in the screening: Declined to provide - Nursing Vital Signs Nursing Vital Signs: Initial Vital Signs Temperature 97.0 F 09/15/23 18:15 Pulse Rate 83 09/15/23 18:15 Respiratory Rate 18 09/15/23 18:15 Blood Pressure 162/88 09/15/23 18:15 O2 Sat by Pulse Oximetry 95 09/15/23 18:15 Pain Scale Pain Intensity 9 - Physical Exam General Appearance: no apparent distress, alert Eyes, Ears, Nose, Throat Exam: moist mucous membranes Neck Exam: non-tender, supple Cardiovascular/Respiratory Exam: chest non-tender, normal breath sounds, regular rate/rhythm, no respiratory distress Gastrointestinal/Abdominal Exam: non-tender Back Exam: normal inspection, No vertebral tenderness Hips Exam: bilateral: non-tender, normal inspection, normal range of motion, no evidence of injury Legs Exam: right leg: non-tender, normal inspection, normal range of motion, no evidence of injury, left leg: pain, soft tissue tenderness, swelling Knees Exam: bilateral knee: non-tender, normal inspection, normal range of motion, no evidence of injury Ankle Exam: right ankle: non-tender, normal inspection, normal range of motion, no evidence of injury, left ankle: pain, soft tissue tenderness, swelling Foot Exam: right foot: non-tender, normal inspection, normal range of motion, no evidence of injury, left foot: pain, soft tissue tenderness, swelling DTR - Lower Extremities Exam: knee (R): 2+, knee (L): 2+, ankle (R): 2+, ankle (L): 2+ Neuro/Tendon Exam: normal sensation, normal motor functions, normal tendon functions, no evidence tendon injury Mental Status Exam: alert, oriented x 3, cooperative Skin Exam: normal color, warm, dry SpO2 Interpretation: normal SpO2: 95 O2 Delivery: Room Air - Course Nursing assessment & vital signs reviewed: Yes - CT Exams Lower Extremity CT Interpretation: Tele-radiologist Report, No Fracture, Other (STS no mention of infection) - Radiology Ultrasound Exam Venous Lower Extremity Ultrasound: Other (rad reading was negative for DVT. ) Ordered Tests: Active Orders 24 hr Category Date Time Status IV Insertion STAT Care 09/15/23 18:53 Active LOWER EXTREMITY WO CONTRAST [CT] Stat Exams 09/15/23 18:55 Completed LOWER EXTREMITY WO CONTRAST [CT] Stat Exams 09/15/23 19:14 Completed VENOUS UNILAT/LIMITED EXTREMIT [US] Stat Exams 09/15/23 18:56 Completed CBC W DIFF Stat Lab 09/15/23 19:18 Completed CMP Stat Lab 09/15/23 19:18 Completed ESR [Erythrocyte Sedimentation Rate] Stat Lab 09/15/23 19:18 Completed Lactic Acid Stat Lab 09/15/23 18:53 Completed UA W/RFX UR CULTURE Stat Lab 09/15/23 19:18 Completed Medication Summary Discontinued Medications Generic Name Dose Route Start Last Admin Trade Name Freq PRN Reason Stop Dose Admin Hydromorphone HCl 1 mg 09/15/23 18:54 09/15/23 19:46 Hydromorphone 1 Mg/1ml Inj IV 09/15/23 18:55 1 mg STAT ONE Administration Hydromorphone HCl Confirm 09/15/23 19:42 Hydromorphone 1 Mg/1ml Inj Administered 09/15/23 19:43 Dose 1 mg .ROUTE .STK-MED ONE Hydromorphone HCl 2 mg 08/03/24 21:24 09/15/23 21:38 Hydromorphone 1 Mg/1ml Inj IV 09/15/23 21:25 2 mg STAT ONE Administration Hydromorphone HCl Confirm 09/15/23 21:32 Hydromorphone 1 Mg/1ml Inj Administered 09/15/23 21:33 Dose 2 mg .ROUTE .STK-MED ONE Sodium Chloride 1,000 mls @ 999 mls/hr 09/15/23 18:53 09/15/23 19:44 Sodium Chloride 0.9% 1000 Ml IV 09/15/23 19:53 999 mls/hr .Q1H1M STA Administration Sodium Chloride Confirm 09/15/23 19:42 Sodium Chloride 0.9% 1000 Ml Administered 09/15/23 19:43 Dose 1,000 mls @ ud .ROUTE .STK-MED ONE Ceftriaxone Sodium 1 gm in 100 mls @ 200 mls/hr 09/15/23 21:24 09/15/23 21:37 Rocephin 1 Gm / 100 Ml Nacl IV 09/15/23 21:53 200 mls/hr STAT ONE 200 mls/hr Administration Ceftriaxone Sodium Confirm 09/15/23 21:32 Rocephin 1 Gm / 100 Ml Nacl Administered 09/15/23 21:33 Dose 1 gm in 100 mls @ ud IV .STK-MED ONE Lab/Rad Data: Laboratory Result Diagrams 09/15/23 19:18 09/15/23 19:18 Laboratory Results 09/15/23 09/15/23 09/15/23 Range/Units 19:18 19:18 19:18 WBC 6.7 (4.23-9.07) x10^3/uL RBC 3.80 L (4.63-6.08) x10^6/uL Hgb 9.0 L (13.7-17.5) g/dL Hct 30.8 L (40.1-51.0) % MCV 81.1 (79.0-92.2) fL MCH 23.7 L (25.7-32.2) pg MCHC 29.2 L (32.3-36.5) g/dL RDW 21.0 H (11.6-14.4) % Plt Count 207 (163-337) x10^3/uL MPV 9.7 (9.4-12.4) fL Gran % 74.2 H (34.0-67.9) % Immature Gran % (Auto) 0.3 (0.001-0.429) % Nucleat RBC Rel Count 0.0 (0.00-0.2) % Eos # (Auto) 0.06 (0.04-0.54) x10^3/uL Immature Gran # (Auto) 0.02 (0.001-0.031) x10^3u/L Absolute Lymphs (auto) 1.34 (1.32-3.57) x10^3/uL Absolute Monos (auto) 0.28 L (0.30-0.82) x10^3/uL Absolute Nucleated RBC 0.00 (0.00-0.012) x10^3u/L Lymphocytes % 20.1 L (21.8-53.1) % Monocytes % 4.2 L (5.3-12.2) % Eosinophils % 0.9 (0.8-7.0) % Basophils % 0.3 (0.2-1.2) % Absolute Granulocytes 4.95 (1.78-5.38) x10^3/uL Basophils # 0.02 (0.01-0.08) x10^3/uL ESR > 130 H (0-15) mm/hr Sodium 141 (135-145) mmol/L Potassium 3.7 (3.5-5.1) mmol/L Chloride 106 (98-107) mmol/L Carbon Dioxide 29 (22-30) mmol/L Anion Gap 9.5 (5-15) MEQ/L BUN 8 L (9-20) mg/dL Creatinine 1.01 (0.66-1.25) mg/dL Estimated GFR 86.2 ML/MIN Glucose 94 (74-106) mg/dL Lactic Acid (0.4-2.0) Calcium 8.9 (8.4-10.2) mg/dL Total Bilirubin 0.20 (0.2-1.3) mg/dL AST 23 (17-59) U/L ALT 14 (0-50) U/L Alkaline Phosphatase 118 (38-126) U/L Serum Total Protein 7.6 (6.3-8.2) g/dL Albumin 3.6 (3.5-5.0) g/dL Urine Color (Yellow) Urine Appearance (Clear) Urine pH (4.6-8.0) Ur Specific Mcdaniels (1.005-1.030) Urine Protein (Negative) Urine Glucose (UA) (Negative) mg/dL Urine Ketones (Negative) Urine Blood (Negative) Urine Nitrite (Negative) Urine Bilirubin (Negative) Urine Urobilinogen (0.2) mg/dL Ur Leukocyte Esterase (Negative) U Hyaline Cast (Auto) (0-2) /LPF Urine Microscopic RBC (0-5) /HPF Urine Microscopic WBC (0-5) /HPF Ur Epithelial Cells (None Seen) /HPF Urine Bacteria (None Seen) /HPF Urine Culture Reflexed (NO) 09/15/23 09/15/23 Range/Units 19:18 18:53 WBC (4.23-9.07) x10^3/uL RBC (4.63-6.08) x10^6/uL Hgb (13.7-17.5) g/dL Hct (40.1-51.0) % MCV (79.0-92.2) fL MCH (25.7-32.2) pg MCHC (32.3-36.5) g/dL RDW (11.6-14.4) % Plt Count (163-337) x10^3/uL MPV (9.4-12.4) fL Gran % (34.0-67.9) % Immature Gran % (Auto) (0.001-0.429) % Nucleat RBC Rel Count (0.00-0.2) % Eos # (Auto) (0.04-0.54) x10^3/uL Immature Gran # (Auto) (0.001-0.031) x10^3u/L Absolute Lymphs (auto) (1.32-3.57) x10^3/uL Absolute Monos (auto) (0.30-0.82) x10^3/uL Absolute Nucleated RBC (0.00-0.012) x10^3u/L Lymphocytes % (21.8-53.1) % Monocytes % (5.3-12.2) % Eosinophils % (0.8-7.0) % Basophils % (0.2-1.2) % Absolute Granulocytes (1.78-5.38) x10^3/uL Basophils # (0.01-0.08) x10^3/uL ESR (0-15) mm/hr Sodium (135-145) mmol/L Potassium (3.5-5.1) mmol/L Chloride (98-107) mmol/L Carbon Dioxide (22-30) mmol/L Anion Gap (5-15) MEQ/L BUN (9-20) mg/dL Creatinine (0.66-1.25) mg/dL Estimated GFR ML/MIN Glucose (74-106) mg/dL Lactic Acid 1.2 (0.4-2.0) Calcium (8.4-10.2) mg/dL Total Bilirubin (0.2-1.3) mg/dL AST (17-59) U/L ALT (0-50) U/L Alkaline Phosphatase (38-126) U/L Serum Total Protein (6.3-8.2) g/dL Albumin (3.5-5.0) g/dL Urine Color Yellow (Yellow) Urine Appearance Clear (Clear) Urine pH 5.5 (4.6-8.0) Ur Specific Mcdaniels 1.010 (1.005-1.030) Urine Protein Negative (Negative) Urine Glucose (UA) Negative (Negative) mg/dL Urine Ketones Negative (Negative) Urine Blood Negative (Negative) Urine Nitrite Negative (Negative) Urine Bilirubin Negative (Negative) Urine Urobilinogen 0.2 (0.2) mg/dL Ur Leukocyte Esterase Negative (Negative) U Hyaline Cast (Auto) NONE SEEN (0-2) /LPF Urine Microscopic RBC 0-2 (0-5) /HPF Urine Microscopic WBC 0-2 (0-5) /HPF Ur Epithelial Cells None Seen (None Seen) /HPF Urine Bacteria None Seen (None Seen) /HPF Urine Culture Reflexed NO (NO) - Progress Progress: improved, re-examined Progress Note: 09/15/23 22:04 discussed with pt and family that we have not determined a cause but there may be infection and discussed possible gout as well - they wish outpt Tx and also rather than try different AB will try keflex since that worked before and not allergic , but also that undetected pathology, including vascular, infectious or other may be evolving of a serious nature - they wish outpt rather than admission or further eval in ER , including CTA for rule out of arterial vascular, at this time and have the capacity to make these choices. 09/15/23 22:08 Good pulses detected right foot DP and PT and confirmed on doppler by RN. . Pt and family decline CTA of involved leg at this time and have the capacity to make this choice after this discussion of risks/benefits. 09/15/23 22:13 09/15/23 22:14 09/15/23 22:20 Counseled pt/family regarding: lab results, diagnosis, need for follow-up, rad results Medical Desision Making - Independent Historian Additional History obtained from: Family - Discussion of managment Reviewed:: Test results, Need for additional workup Agreed on:: Treatment plan, need for follow-up - Diagnostic Testing Diagnostic test were ordered, analyzed, and reviewed by me: Yes Radiological Interpretation: Teleradiologist Report - Risk of complications The pt has a mod risk of morbidity or mortality based on: Need for prescription drug management The pt has a high risk of morbidity or mortality based on: Decision regarding hospitilization or escalation of hosp level of care - Departure Departure Disposition: Home Clinical Impression: Left leg swelling unknown cause Condition: Good Critical Care Time: No Referrals: HOSPITAL,'S [Primary Care Provider] - Follow up/PCP as directed Instructions: Cellulitis (Skin Infection), Adult ED, Gout ED, Peripheral artery disease and claudication Additional Instructions: We did not determine a cause for your left leg swelling but cellulitis infection, and gout. and even a clot or blockage of your arteries , may be possible and need more workup by your Dr.s so we are including those instructions to help you watch for those signs. However there may be other conditions developing so it is important including a artery problem to see your Drs to find this out . Also follow-up with your Drs. for your Blood Pressure return meantime if not improving, short of breath, fever, increased pain, numbness or other concerns. . Prescriptions: Cephalexin Mh 500 mg [Keflex 500 mg] 500 mg PO TID 7 Days #30 cap
[2023-09-15 19:22] LABS: Absolute Neutrophil Ct (ANC) 4.95 x10^3/uL (1.78-5.38); BASOPHIL % 0.3 % (0.2-1.2); Basophil (Absolute #) 0.02 x10^3/uL (0.01-0.08); Eosinophil % 0.9 % (0.8-7.0); Eosinophil (Absolute #) 0.06 x10^3/uL (0.04-0.54); Hematocrit 30.8 % (40.1-51.0); IMMATURE GRAN # 0.02 x10^3u/L (0.001-0.031); IMMATURE GRAN % 0.3 % (0.001-0.429); Lymphocyte (Absolute #) 1.34 x10^3/uL (1.32-3.57); Lymphocytes % 20.1 % (21.8-53.1); Mean Cell Volume 81.1 fL (79.0-92.2); Mean Corpuscular Hemoglobin 23.7 pg (25.7-32.2); Mean Corpuscular Hgb Concent. 29.2 g/dL (32.3-36.5); Mean Platelet Volume 9.7 fL (9.4-12.4); Monocyte (Absolute #) 0.28 x10^3/uL (0.30-0.82); Monocytes % 4.2 % (5.3-12.2); Neutrophil % 74.2 % (34.0-67.9); Platelet Count 207 x10^3/uL (163-337); White Blood Count 6.7 x10^3/uL (4.23-9.07)
[2023-09-15 19:28] LABS: ADD URINE CULTURE? NO (NO); Appearance Clear (Clear); Bacteria None Seen /HPF (None Seen); Bilirubin Negative (Negative); Blood Negative (Negative); Epithelial Cells None Seen /HPF (None Seen); Glucose, Urine Negative (Negative); Hyaline Casts NONE SEEN /LPF (0-2); Ketones Negative (Negative); Leukocyte Esterase Negative (Negative); Nitrite Negative (Negative); Ph 5.5 (4.6-8.0); Protein,Urine Dip Negative (Negative); RBC 0-2 /HPF (0-5); Urobilinogen 0.2 mg/dL (0.2); WBC 0-2 /HPF (0-5)
[2023-09-15 19:34] LABS: ALBUMIN 3.6 g/dL (3.5-5.0); ANION GAP 9.5 MEQ/L (5-15); BILIRUBIN,TOTAL 0.2 mg/dL (0.2-1.3); Calcium 8.9 mg/dL (8.4-10.2); Creatinine 1 1.01 mg/dL (0.66-1.25); EST GLOMERULAR FILTRATION RATE 86.2 ML/MIN; Potassium 3.7 mmol/L (3.5-5.1); Total Protein 7.6 g/dL (6.3-8.2)
[2023-09-15] MEDS ORDERED: Sodium Chloride 0.9% 1000 ML 1,000 ML ONE (19:42)
[2023-09-15] MEDS ORDERED: Hydromorphone 1 mg/ml Injection ONE ×2 (19:42→21:32)
[2023-09-15] MEDS: Sodium Chloride 0.9% 1000 ML 1,000 ML IV STA (19:44)
[2023-09-15] MEDS: Hydromorphone 1 mg/ml Injection IV ONE ×2 (19:46→21:38)
--- NOTE | 2023-09-15 20:45 | XRAY ---
CLINICAL HISTORY: PAIN AND SWELLING COMPARISON: none TECHNIQUE: Contiguous axial CT images of the left foot were obtained without intravenous contrast. Sagittal and coronal multiplanar reformats were acquired. One of the following dose reduction techniques were utilized for this exam: Automated exposure control, adjustment of the mA and/or kV according to patient size, use of iterative reconstruction. FINDINGS: Bones: Normal alignment of the tarsal, metatarsal, and phalangeal bones. No fractures or dislocations. No lytic or sclerotic lesions. No evidence of bone marrow edema. Joints: Normal appearance of the ankle, subtalar, midtarsal, and metatarsophalangeal joints. No joint effusions or significant degenerative changes. Normal articular surfaces without erosions or osteophyte formation. Soft Tissues: Mild diffuse subcutaneous edema, further MRI evaluation may be recommended for better evaluation. Muscles: Normal appearance of the surrounding musculature. No muscle atrophy or abnormal signal changes. Ligaments and Tendons: Intact and normal appearance of the major foot ligaments and tendons, including the Achilles tendon, plantar fascia, and other tendons around the foot. IMPRESSION: Mild diffuse subcutaneous edema, further MRI evaluation may be recommended for better evaluation. Electronically Signed by: Cherelle Elise MD. (09/15/2023 20:41:54 EDT)
--- NOTE | 2023-09-15 20:50 | XRAY ---
Indication: Pain and swelling. Two-dimensional sonogram and color Doppler imaging major venous vessels left leg performed. Comparison: None No thrombus seen in the examined deep venous vessels left leg including greater saphenous vein. Veins demonstrate normal compressibility. Venous waveforms are normal with and without augmentation. Impression: Left leg negative for DVT. Comment: Preliminary report was given.
--- NOTE | 2023-09-15 21:05 | XRAY ---
CLINICAL HISTORY: pain and swelling looking for osteo COMPARISON: None. TECHNIQUE: Thin axial CT images of the left femur including knee and ankle joints were obtained along with coronal and sagittal reconstructions without contrast. One of the following dose reduction techniques was utilized for this exam.Automated exposure control, adjustment of the mA and/or kV according to patient size, and use of iterative reconstruction. FINDINGS: The visualized bones appear normal. No acute fracture is noted. A tiny defect is noted along the deep surface of the patella with an adjoining tiny loose body raising the possibility of a small osteochondral defect requiring MRI for confirmation. Mild knee joint effusions are appreciated. The joint spaces are normal. The tibiofemoral and superior tibiofibular joint spaces are normal. No evidence of lytic or sclerotic bone lesions. No ankle joint effusion. Some vascular calcifications are noted. Moderate diffuse soft tissue edema over the distal half of the leg. No air in the soft tissues. IMPRESSION: 1. A small defect on the femoral articulating surface of the patella with a tiny osseous loose body in the vicinity raising concern for a small osteochondral injury requiring MRI for confirmation. 2. Mild knee joint effusions. 3. Moderate diffuse soft tissue edema over the distal half of the leg 4. No other significant abnormality can be appreciated. Electronically Signed by: Cherelle Elise MD. (09/15/2023 21:01:00 EDT)
[2023-09-15] MEDS ORDERED: ROCEPHIN 1 GM / 100 ML NaCl 1 GM/100 ML IVPB IV ONE (21:32)
[2023-09-15] MEDS: ROCEPHIN 1 GM / 100 ML NaCl 1 GM/100 ML IVPB IV ONE (21:37)
[2023-09-15 22:25] VITALS: BP 153/75; PULSE 74; RESP 16
== END 2023-09-15 22:31 | disposition home or self-care (01) ==
LOC: ED 18:05
DX: M79.89 Other specified soft tissue disorders (principal); M79.672 Pain in left foot; E78.5 Hyperlipidemia, unspecified; I10 Essential (primary) hypertension; Z79.02 Long term (current) use of antithrombotics/antiplatelets; Z79.899 Other long term (current) drug therapy; Z72.0 Tobacco use
CPT/HCPCS: 36000; 36415; 73700; 80053; 81001; 83605; 85025; 85652; 93971; 96365; 96374; 96376; 99284; J0696; J1170

== ENCOUNTER 2023-09-30 15:16 | Emergency (ER) | payer OTHER ==
[2023-09-30 15:26] VITALS: RESP 18; TEMP 97.1
--- NOTE | 2023-09-30 16:24 | ERPHSYRPT ---
- History of Present Illness Time Seen by Provider: 09/30/23 16:19 Source: patient, family Exam Limitations: no limitations Patient Subjective Stated Complaint: pt here for left testicular pain, this is chronic for him but is worse today, no injury, he states he is getting [facility] hes states " it is not healthy" Triage Nursing Assessment: pt alert, walked in, resp easy, skin w.d.p.pt refused to let this nurse look at testies . Physician History: pt has chronic left testicle pain and tehy are considering removal, but the pain became suddenly severe today and he came in. No recent trauma. Tender and swollen left testicle to touch. Abd soft nontender without peritoenal signs or masses. Family/ is here in ER as independent confirming source for Hx. Discussed risks/benefits of testing/Tx with pt and including Dilaudid ( which was required last time for relief) US, and CBC, CMP, Lactate and they wish to proceed so these are ordered. Results discussed. Timing/Duration: today, constant Quality: aching, burning, sharpness, stabbing Onset Location: left testicle Pain Radiation: none Severity of Pain-Max: severe Severity of Pain-Current: severe Modifying Factors: Improves With: nothing Associated Symptoms: denies symptoms Prior abdominal problems: none Sexual intercourse history: non-contributory Allergies/Adverse Reactions: hydrocodone bitartrate [From Vicodin] Allergy (Verified 09/30/23 15:30) Rash Iodinated Contrast Media Allergy (Verified 09/30/23 15:30) ketorolac [From Toradol] Allergy (Verified 09/30/23 15:30) Penicillins Allergy (Verified 09/30/23 15:30) venlafaxine Allergy (Verified 09/30/23 15:30) codeine Adverse Reaction (Verified 09/30/23 15:30) codeine phosphate [From Codar D] Adverse Reaction (Verified 09/30/23 15:30) morphine Adverse Reaction (Verified 09/30/23 15:30) pseudoephedrine HCl [From Codar D] Adverse Reaction (Verified 09/30/23 15:30) Home Medications: Aspirin 81 gm Chew [Baby Aspirin 81 mg Chew] 81 mg PO DAILY 04/11/14 [History] Albuterol Sulfate [Proair Digihaler] 2 puff IH QID PRN PRN 09/11/20 [History] Atorvastatin Calcium 1 tab PO HS 09/11/20 [History] Ticagrelor [Brilinta] 90 mg PO BID 09/11/20 [History] clonazePAM [Clonazepam] 2 mg PO UD PRN 09/11/20 [History] Cholecalciferol (Vitamin D3) [Vitamin D3] 125 mcg PO DAILY 03/22/21 [History] Cyanocobalamin 500 Mcg [Vitamin B-12 500 MCG] 1,000 mcg PO DAILY 03/22/21 [History] Acetaminophen 500 mg [Tylenol Extra Strength 500 mg] 500 mg PO TID 03/30/21 [History] Nitroglycerin [Nitrolingual] 1 gm TL Q5MIN PRN MR X 3 PRN 03/30/21 [History] Folic Acid 1 mg [Folate 1 mg] 1 mg PO DAILY 03/06/23 [History] Levothyroxine Sodium 25 Mcg [Synthroid 25 Mcg] 25 mcg PO DAILY 03/06/23 [History] Loratadine 10 mg [Claritin 10 mg] 10 mg PO DAILY PRN PRN 03/06/23 [History] Mometasone Furoate [Asmanex] 2 puffs IH BID 03/06/23 [History] Naloxone HCl 4 mg NS UD PRN 03/06/23 [History] Olodaterol/ Tiotrop 2.5mcg/Act 2 puff IH DAILY 03/06/23 [History] Omeprazole 40 mg PO BIDAC 03/06/23 [History] Oxycodone HCl 5 mg PO Q6H PRN PRN 09/30/23 [History] Hx Tetanus, Diphtheria Vaccination/Date Given: Yes Hx Influenza Vaccination/Date Given: No Hx Pneumococcal Vaccination/Date Given: No Immunizations Up to Date: Yes Travel Risk - International Travel Have you traveled outside of the country in past 3 weeks: No - Emerging Infectious Disease Are you exhibiting symptoms associated with any current EIDs: No - Past Medical History Pertinent Past Medical History: Yes Neurological History: Peripheral Neuropathy, TIA ENT History: No Pertinent History Cardiac History: Aneurysm, Coronary Artery Disease, High Cholesterol, Hypertension, Myocardial Infarction ([place]) Respiratory History: Asthma, COPD, Emphysema, Pneumonia, Sleep Apnea, Other Endocrine Medical History: Hypothyroidism Musculoskeletal History: Degenerative Disk Disease GI Medical History: Gallbladder Disease, Hernia History: Other Psycho-Social History: Anxiety Male Reproductive Disorders: No Pertinent History Other Medical History: CHRONIC BACK PAIN, carotid artery disease. KIDNEY STONES - Past Surgical History Past Surgical History: Yes Neuro Surgical History: No Pertinent History Cardiac: Cardiac Catheterization, Cardiac Stent Respiratory: Other Gastrointestinal: Cholecystectomy Genitourinary: No Pertinent History Musculoskeletal: Orthopedic Surgery Male Surgical History: No Pertinent History Other Surgical History: R lung cut a 1/4 inch off the top. 1988, back surgery , inspire placement, rt leg fx. drain placed for bile drainage - Social History Smoking Status: Current every day smoker How long have you smoked: 48 yrs Exposure to second hand smoke: Yes Drug Use: none Patient Lives Alone: No - Social Determinants of Health Will the patient participate in the screening: Declined to provide - Review of Systems Constitutional: No Fever, No Chills Eyes: No Symptoms Ears, Nose, & Throat: No Symptoms Respiratory: No Cough, No Dyspnea Cardiac: No Chest Pain, No Edema, No Syncope Abdominal/Gastrointestinal: No Abdominal Pain, No Nausea, No Vomiting, No Diarrhea Genitourinary Symptoms: Testicle Pain, No Dysuria Musculoskeletal: No Back Pain, No Neck Pain Skin: No Rash Neurological: No Dizziness, No Focal Weakness, No Sensory Changes Psychological: No Symptoms Endocrine: No Symptoms Hematologic/Lymphatic: No Symptoms Immunological/Allergic: No Symptoms All Other Systems: Reviewed and Negative - Nursing Vital Signs Nursing Vital Signs: Initial Vital Signs Temperature 97.1 F 09/30/23 15:25 Pulse Rate 96 H 09/30/23 15:25 Respiratory Rate 18 09/30/23 15:25 Blood Pressure 148/67 09/30/23 15:25 O2 Sat by Pulse Oximetry 96 09/30/23 15:25 Pain Scale Pain Intensity 8 - Physical Exam General Appearance: no apparent distress, alert Eye Exam: PERRL/EOMI Ears, Nose, Throat Exam: pharynx normal, moist mucous membranes Neck Exam: normal inspection, supple Respiratory Exam: normal breath sounds, lungs clear Cardiovascular Exam: regular rate/rhythm, No edema Gastrointestinal/Abdomen Exam: soft, No tenderness, No distention, No mass, No guarding, No pulsatile mass, No rebound, No hernia Rectal Exam: deferred Male Genital Exam: scrotum tenderness (L), testicular tenderness (L), scrotal swellling, No urethral discharge Back Exam: normal inspection, No CVA tenderness Extremity Exam: normal inspection, normal range of motion, No pedal edema Neurologic Exam: alert, oriented x 3, cooperative, sensation nml, No motor deficits Skin Exam: normal color, warm, dry, No rash SpO2 Interpretation: normal SpO2: 96 O2 Delivery: Room Air - Course Nursing assessment & vital signs reviewed: Yes - Radiology Ultrasound Exam Scrotal Ultrasound: No Torsion/Nml Flow, Other (rad report) Ordered Tests: Active Orders 24 hr Category Date Time Status TESTICLE [US] Stat Exams 09/30/23 17:50 Taken CBC W DIFF Stat Lab 09/30/23 16:20 Completed CMP Stat Lab 09/30/23 16:39 Completed Lactic Acid Stat Lab 09/30/23 16:20 Completed UA W/RFX UR CULTURE Stat Lab 09/30/23 16:26 Completed Medication Summary Discontinued Medications Generic Name Dose Route Start Last Admin Trade Name Perezq PRN Reason Stop Dose Admin Hydromorphone HCl 2 mg 09/30/23 16:20 09/30/23 16:53 Hydromorphone 1 Mg/1ml Inj IM 09/30/23 16:21 2 mg STAT ONE Administration Hydromorphone HCl Confirm 09/30/23 16:49 Hydromorphone 1 Mg/1ml Inj Administered 09/30/23 16:50 Dose 1 mg .ROUTE .STK-MED ONE Hydromorphone HCl Confirm 09/30/23 16:51 Hydromorphone 1 Mg/1ml Inj Administered 09/30/23 16:52 Dose 1 mg .ROUTE .STK-MED ONE Lab/Rad Data: Laboratory Result Diagrams 09/30/23 16:20 09/30/23 16:39 Laboratory Results 09/30/23 09/30/23 09/30/23 Range/Units 16:39 16:26 16:20 WBC (4.23-9.07) x10^3/uL RBC (4.63-6.08) x10^6/uL Hgb (13.7-17.5) g/dL Hct (40.1-51.0) % MCV (79.0-92.2) fL MCH (25.7-32.2) pg MCHC (32.3-36.5) g/dL RDW (11.6-14.4) % Plt Count (163-337) x10^3/uL MPV (9.4-12.4) fL Gran % (34.0-67.9) % Immature Gran % (Auto) (0.001-0.429) % Nucleat RBC Rel Count (0.00-0.2) % Eos # (Auto) (0.04-0.54) x10^3/uL Immature Gran # (Auto) (0.001-0.031) x10^3u/L Absolute Lymphs (auto) (1.32-3.57) x10^3/uL Absolute Monos (auto) (0.30-0.82) x10^3/uL Absolute Nucleated RBC (0.00-0.012) x10^3u/L Lymphocytes % (21.8-53.1) % Monocytes % (5.3-12.2) % Eosinophils % (0.8-7.0) % Basophils % (0.2-1.2) % Absolute Granulocytes (1.78-5.38) x10^3/uL Basophils # (0.01-0.08) x10^3/uL Sodium 141 (135-145) mmol/L Potassium 3.6 (3.5-5.1) mmol/L Chloride 106 (98-107) mmol/L Carbon Dioxide 28 (22-30) mmol/L Anion Gap 10.1 (5-15) MEQ/L BUN 12 (9-20) mg/dL Creatinine 1.20 (0.66-1.25) mg/dL Estimated GFR 70.1 ML/MIN Glucose 97 (74-106) mg/dL Lactic Acid 1.0 (0.4-2.0) Calcium 9.0 (8.4-10.2) mg/dL Total Bilirubin 0.30 (0.2-1.3) mg/dL AST 22 (17-59) U/L ALT 16 (0-50) U/L Alkaline Phosphatase 135 H (38-126) U/L Serum Total Protein 8.1 (6.3-8.2) g/dL Albumin 3.8 (3.5-5.0) g/dL Urine Color Yellow (Yellow) Urine Appearance Clear (Clear) Urine pH 5.5 (4.6-8.0) Ur Specific [place] >=1.030 A (1.005-1.030) Urine Protein 30 (Negative) Urine Glucose (UA) Negative (Negative) mg/dL Urine Ketones Trace A (Negative) Urine Blood Negative (Negative) Urine Nitrite Negative (Negative) Urine Bilirubin Negative (Negative) Urine Urobilinogen 1.0 A (0.2) mg/dL Ur Leukocyte Esterase Negative (Negative) U Hyaline Cast (Auto) NONE SEEN (0-2) /LPF Urine Microscopic RBC 0-2 (0-5) /HPF Urine Microscopic WBC 0-2 (0-5) /HPF Ur Epithelial Cells None Seen (None Seen) /HPF Urine Bacteria None Seen (None Seen) /HPF Urine Culture Reflexed NO (NO) 09/30/23 Range/Units 16:20 WBC 5.3 (4.23-9.07) x10^3/uL RBC 4.15 L (4.63-6.08) x10^6/uL Hgb 10.0 L (13.7-17.5) g/dL Hct 34.3 L (40.1-51.0) % MCV 82.7 (79.0-92.2) fL MCH 24.1 L (25.7-32.2) pg MCHC 29.2 L (32.3-36.5) g/dL RDW 21.8 H (11.6-14.4) % Plt Count 185 (163-337) x10^3/uL MPV 9.4 (9.4-12.4) fL Gran % 56.3 (34.0-67.9) % Immature Gran % (Auto) 0.2 (0.001-0.429) % Nucleat RBC Rel Count 0.0 (0.00-0.2) % Eos # (Auto) 0.07 (0.04-0.54) x10^3/uL Immature Gran # (Auto) 0.01 (0.001-0.031) x10^3u/L Absolute Lymphs (auto) 1.94 (1.32-3.57) x10^3/uL Absolute Monos (auto) 0.27 L (0.30-0.82) x10^3/uL Absolute Nucleated RBC 0.00 (0.00-0.012) x10^3u/L Lymphocytes % 36.5 (21.8-53.1) % Monocytes % 5.1 L (5.3-12.2) % Eosinophils % 1.3 (0.8-7.0) % Basophils % 0.6 (0.2-1.2) % Absolute Granulocytes 2.99 (1.78-5.38) x10^3/uL Basophils # 0.03 (0.01-0.08) x10^3/uL Sodium (135-145) mmol/L Potassium (3.5-5.1) mmol/L Chloride (98-107) mmol/L Carbon Dioxide (22-30) mmol/L Anion Gap (5-15) MEQ/L BUN (9-20) mg/dL Creatinine (0.66-1.25) mg/dL Estimated GFR ML/MIN Glucose (74-106) mg/dL Lactic Acid (0.4-2.0) Calcium (8.4-10.2) mg/dL Total Bilirubin (0.2-1.3) mg/dL AST (17-59) U/L ALT (0-50) U/L Alkaline Phosphatase (38-126) U/L Serum Total Protein (6.3-8.2) g/dL Albumin (3.5-5.0) g/dL Urine Color (Yellow) Urine Appearance (Clear) Urine pH (4.6-8.0) Ur Specific [place] (1.005-1.030) Urine Protein (Negative) Urine Glucose (UA) (Negative) mg/dL Urine Ketones (Negative) Urine Blood (Negative) Urine Nitrite (Negative) Urine Bilirubin (Negative) Urine Urobilinogen (0.2) mg/dL Ur Leukocyte Esterase (Negative) U Hyaline Cast (Auto) (0-2) /LPF Urine Microscopic RBC (0-5) /HPF Urine Microscopic WBC (0-5) /HPF Ur Epithelial Cells (None Seen) /HPF Urine Bacteria (None Seen) /HPF Urine Culture Reflexed (NO) - Progress Progress: improved, re-examined Progress Note: 09/30/23 18:19 Discussed risks/benefits of Tx Cipro including tendon rupture and pt and wish to proceed so this is written as script and give dose inER. they have been advised that undetected pathology may still be evolving in the testicle or abd or vascular system, also prefer outpt f/u and tx with PMD rather than further eval in ER or hosp at this time and have the capacity to make this choice. Counseled pt/family regarding: lab results, diagnosis, need for follow-up, rad results Medical Desision Making - Independent Historian Additional History obtained from: Spouse - Discussion of managment Reviewed:: Test results, Need for additional workup Agreed on:: Treatment plan, need for follow-up - Diagnostic Testing Diagnostic test were ordered, analyzed, and reviewed by me: Yes Radiological Interpretation: Reviewed by me - Risk of complications The pt has a mod risk of morbidity or mortality based on: Need for prescription drug management The pt has a high risk of morbidity or mortality based on: Decision regarding hospitilization or escalation of hosp level of care - Departure Departure Disposition: Home Clinical Impression: Testicular pain, left, inflammed left testical, epididymitis symptoms Condition: Good Critical Care Time: No Referrals: HOSPITAL,'S [Primary Care Provider] - Follow up/PCP as directed Instructions: Epididymitis (DC) Additional Instructions: We are providing instructions for epidydimitis an infection , although it is not yet clearly the cause for your increased symptoms, and we are providing treatment for this just in case. THerefore followup with your Dr.s is very important to determine the exact cause, and to follow your progress in case of complications not yet detected. Return meantime if any vomiting, increased pain dizziness or other symptoms or concerns. the antibiotic may affect some of your other meds such as the muscle relaxer ti nazidine - so see your Dr about adjusting that dose and only take with caustion after letting them know. Prescriptions: Ciprofloxacin [Cipro 500 MG] 500 mg PO BID #20 tablet
[2023-09-30 16:33] LABS: Appearance Clear (Clear); Bacteria None Seen /HPF (None Seen); Bilirubin Negative (Negative); Blood Negative (Negative); Epithelial Cells None Seen /HPF (None Seen); Glucose, Urine Negative (Negative); Hyaline Casts NONE SEEN /LPF (0-2); Ketones Trace (Negative); Leukocyte Esterase Negative (Negative); Nitrite Negative (Negative); Ph 5.5 (4.6-8.0); Protein,Urine Dip 30 (Negative); RBC 0-2 /HPF (0-5); Specific Gravity >=1.030 (1.005-1.030); WBC 0-2 /HPF (0-5)
[2023-09-30 16:38] LABS: Absolute Neutrophil Ct (ANC) 2.99 x10^3/uL (1.78-5.38); BASOPHIL % 0.6 % (0.2-1.2); Basophil (Absolute #) 0.03 x10^3/uL (0.01-0.08); Eosinophil % 1.3 % (0.8-7.0); Eosinophil (Absolute #) 0.07 x10^3/uL (0.04-0.54); Hematocrit 34.3 % (40.1-51.0); IMMATURE GRAN # 0.01 x10^3u/L (0.001-0.031); IMMATURE GRAN % 0.2 % (0.001-0.429); Lymphocyte (Absolute #) 1.94 x10^3/uL (1.32-3.57); Lymphocytes % 36.5 % (21.8-53.1); Mean Cell Volume 82.7 fL (79.0-92.2); Mean Corpuscular Hemoglobin 24.1 pg (25.7-32.2); Mean Corpuscular Hgb Concent. 29.2 g/dL (32.3-36.5); Mean Platelet Volume 9.4 fL (9.4-12.4); Monocyte (Absolute #) 0.27 x10^3/uL (0.30-0.82); Monocytes % 5.1 % (5.3-12.2); Neutrophil % 56.3 % (34.0-67.9); Platelet Count 185 x10^3/uL (163-337); Red Blood Count 4.15 x10^6/uL (4.63-6.08); Red Cell Distribution Width 21.8 % (11.6-14.4); White Blood Count 5.3 x10^3/uL (4.23-9.07)
[2023-09-30 16:42] LABS: ADD URINE CULTURE? NO (NO)
[2023-09-30] MEDS ORDERED: Hydromorphone 1 mg/ml Injection ONE ×3 (16:49→18:40)
[2023-09-30 16:53] LABS: ALBUMIN 3.8 g/dL (3.5-5.0); ANION GAP 10.1 MEQ/L (5-15); BILIRUBIN,TOTAL 0.3 mg/dL (0.2-1.3); Creatinine 1 1.2 mg/dL (0.66-1.25); EST GLOMERULAR FILTRATION RATE 70.1 ML/MIN; Potassium 3.6 mmol/L (3.5-5.1); Total Protein 8.1 g/dL (6.3-8.2)
[2023-09-30] MEDS: Hydromorphone 1 mg/ml Injection IM ONE ×2 (16:53→18:44)
[2023-09-30 18:40] VITALS: BP 122/81; PULSE 70; O2SAT 97
[2023-09-30] MEDS ORDERED: Cipro 500 MG ONE (18:40)
[2023-09-30] MEDS: Cipro 500 MG PO ONE (18:43)
--- NOTE | 2023-09-30 20:04 | XRAY ---
Indication: Left testicle pain. Two-dimensional testicular sonogram performed. Comparison: None Both testicles are homogeneous echogenicity with normal color perfusion. Right testicle measures 2.9 x 1.8 x 2.8 cm and left measures 2.5 x 2.1 x 2.7 cm. Left and right epididymis bilaterally symmetric. Mild left-sided varicocele accentuated with Valsalva maneuvering. Tiny nonspecific left hydrocele. No suspicious extratesticular mass. Impression: Left varicocele with tiny hydrocele. Remaining testicle sonogram is negative. Comment: Preliminary report was given.
== END 2023-09-30 19:04 | disposition home or self-care (01) ==
LOC: ED 15:16
DX: N50.812 Left testicular pain (principal); N45.2 Orchitis; E78.5 Hyperlipidemia, unspecified; I10 Essential (primary) hypertension; Z79.891 Long term (current) use of opiate analgesic; Z79.899 Other long term (current) drug therapy; Z72.0 Tobacco use
CPT/HCPCS: 36415; 76870; 80053; 81001; 83605; 85025; 96372; 99283; J1170; A9270-GY

== ENCOUNTER 2023-12-03 23:20 | Emergency (ER) | payer OTHER ==
--- NOTE | 2023-12-03 23:22 | ERPHSYRPT ---
- History of Present Illness Time Seen by Provider: 12/03/23 23:21 Source: patient, family Exam Limitations: no limitations Physician History: This is a 58-year-old white male patient who receives his primary care at the [facility] but does frequent our hospital emergency department often for pain issues primarily. Patient denies chest pain. Patient denies shortness of breath. Patient does not have any nausea vomiting or diarrhea symptoms. However he is having significant right upper quadrant abdominal pain. Patient has a history of anemia and is receiving iron infusions. He began a new iron infusion medication that started on . In the last several days he has noticed increasing pain in the right upper quadrant. Patient has a history of c oronary artery disease (stents, MIs), peripheral neuropathy, TIAs, asthma, COPD, degenerative disc disease, chronic low back pain, hypothyroid, anxiety, sleep apnea. Patient is a daily smoker of cigarettes Timing/Duration: day(s) (4), worse Severity: moderate Modifying Factors: Improves With: nothing Associated Symptoms: abdominal pain (Right upper quadrant), No nausea, No vomiting, No shortness of breath, No cough, No chest pain Allergies/Adverse Reactions: hydrocodone bitartrate [From Vicodin] Allergy (Verified 12/03/23 23:29) Rash Iodinated Contrast Media Allergy (Verified 12/03/23 23:29) ketorolac [From Toradol] Allergy (Verified 12/03/23 23:29) Penicillins Allergy (Verified 12/03/23 23:29) venlafaxine Allergy (Verified 12/03/23 23:29) codeine Adverse Reaction (Verified 12/03/23 23:29) codeine phosphate [From Codar D] Adverse Reaction (Verified 12/03/23 23:29) morphine Adverse Reaction (Verified 12/03/23 23:29) pseudoephedrine HCl [From Codar D] Adverse Reaction (Verified 12/03/23 23:29) Home Medications: Aspirin 81 gm Chew [Baby Aspirin 81 mg Chew] 81 mg PO DAILY 04/11/14 [History] Albuterol Sulfate [Proair Digihaler] 2 puff IH QID PRN PRN 09/11/20 [History] Atorvastatin Calcium 1 tab PO HS 09/11/20 [History] Ticagrelor [Brilinta] 90 mg PO BID 09/11/20 [History] clonazePAM [Clonazepam] 2 mg PO UD PRN 09/11/20 [History] Cholecalciferol (Vitamin D3) [Vitamin D3] 125 mcg PO DAILY 03/22/21 [History] Cyanocobalamin 500 Mcg [Vitamin B-12 500 MCG] 1,000 mcg PO DAILY 03/22/21 [History] Acetaminophen 500 mg [Tylenol Extra Strength 500 mg] 500 mg PO TID 03/30/21 [History] Nitroglycerin [Nitrolingual] 1 gm TL Q5MIN PRN MR X 3 PRN 03/30/21 [History] Folic Acid 1 mg [Folate 1 mg] 1 mg PO DAILY 03/06/23 [History] Levothyroxine Sodium 25 Mcg [Synthroid 25 Mcg] 25 mcg PO DAILY 03/06/23 [History] Loratadine 10 mg [Claritin 10 mg] 10 mg PO DAILY PRN PRN 03/06/23 [Histor y] Mometasone Furoate [Asmanex] 2 puffs IH BID 03/06/23 [History] Naloxone HCl 4 mg NS UD PRN 03/06/23 [History] Olodaterol/ Tiotrop 2.5mcg/Act 2 puff IH DAILY 03/06/23 [History] Omeprazole 40 mg PO BIDAC 03/06/23 [History] Oxycodone HCl 5 mg PO Q6H PRN PRN 09/30/23 [History] Hx Tetanus, Diphtheria Vaccination/Date Given: Yes Hx Influenza Vaccination/Date Given: No Hx Pneumococcal Vaccination/Date Given: No Travel Risk - International Travel Have you traveled outside of the country in past 3 weeks: No - Emerging Infectious Disease Are you exhibiting symptoms associated with any current EIDs: No - Review of Systems Constitutional: No Symptoms Eyes: No Symptoms Ears, Nose, & Throat: No Symptoms Respiratory: No Symptoms Cardiac: No Symptoms Abdominal/Gastrointestinal: Abdominal Pain, No Nausea, No Vomiting, No Diarrhea, No Constipation, No Appetite Changes Genitourinary Symptoms: No Symptoms Musculoskeletal: No Symptoms Skin: No Symptoms Neurological: No Symptoms Psychological: No Symptoms Endocrine: No Symptoms Hematologic/Lymphatic: Anemia Immunological/Allergic: No Symptoms All Other Systems: Reviewed and Negative - Past Medical History Pertinent Past Medical History: Yes Neurological History: Peripheral Neuropathy, TIA ENT History: No Pertinent History Cardiac History: Aneurysm, Coronary Artery Disease, High Cholesterol, Hypertension, Myocardial Infarction ([place]) Respiratory History: Asthma, COPD, Emphysema, Pneumonia, Sleep Apnea, Other Endocrine Medical History: Hypothyroidism Musculoskeletal History: Degenerative Disk Disease GI Medical History: Gallbladder Disease, Hernia History: Other Psycho-Social History: Anxiety Male Reproductive Disorders: No Pertinent History Other Medical History: CHRONIC BACK PAIN, carotid artery disease. KIDNEY STONES - Past Surgical History Past Surgical History: Yes Neuro Surgical History: No Pertinent History Cardiac: Cardiac Catheterization, Cardiac Stent Respiratory: Other Gastrointestinal: Cholecystectomy Genitourinary: No Pertinent History Musculoskeletal: Orthopedic Surgery Male Surgical History: No Pertinent History Other Surgical History: R lung cut a 1/4 inch off the top. 1988, back surgery , inspire placement, rt leg fx. drain placed for bile drainage - Social History Smoking Status: Current every day smoker How long have you smoked: 48 yrs Exposure to second hand smoke: Yes Drug Use: none Patient Lives Alone: No - Social Determinants of Health Will the patient participate in the screening: Declined to provide - Nursing Vital Signs Nursing Vital Signs: Initial Vital Signs Temperature 97.3 F 12/03/23 23:29 Pulse Rate 78 12/03/23 23:29 Respiratory Rate 18 12/03/23 23:29 Blood Pressure 150/82 12/03/23 23:29 O2 Sat by Pulse Oximetry 98 12/03/23 23:29 Pain Scale Pain Intensity [Right Upper 8 Abdomen] Pain Intensity 6 - Physical Exam General Appearance: mild distress, alert, anxiety, thin Eye Exam: PERRL/EOMI, eyes nml inspection Ears, Nose, Throat Exam: normal ENT inspection, moist mucous membranes Neck Exam: normal inspection, non-tender, supple, full range of motion Respiratory Exam: normal breath sounds, lungs clear, airway intact, No chest tenderness, No respiratory distress Cardiovascular Exam: regular rate/rhythm, normal heart sounds, normal peripheral pulses Gastrointestinal/Abdomen Exam: soft, normal bowel sounds, tenderness (Right upper quadrant to palpation), guarding (Right upper quadrant to palpation), No pulsatile mass, No rebound Rectal Exam: not done Back Exam: normal inspection, normal range of motion, No CVA tenderness, No vertebral tenderness Extremity Exam: normal inspection, normal range of motion, pelvis stable Neurologic Exam: alert, oriented x 3, cooperative, lunchroom operator II-XII nml as tested, nml cerebellar function, nml station & gait, sensation nml Skin Exam: normal color, warm, dry Lymphatic Exam: No adenopathy SpO2 Interpretation: normal O2 Delivery: Room Air - Course Nursing assessment & vital signs reviewed: Yes Ordered Tests: Active Orders 24 hr Category Date Time Status ABDOMEN AND PELVIS W/0 CONTRAS [CT] Stat Exams 12/04/23 00:03 Completed AMYLASE Stat Lab 12/04/23 00:20 Completed CBC W DIFF Stat Lab 12/04/23 00:20 Completed CMP Stat Lab 12/04/23 00:20 Completed LIPASE Stat Lab 12/04/23 00:20 Completed Medication Summary Discontinued Medications Generic Name Dose Route Start Last Admin Trade Name Freq PRN Reason Stop Dose Admin Hydromorphone HCl 1 mg 12/04/23 00:03 12/04/23 00:10 Hydromorphone 1 Mg/1ml Inj IM 12/04/23 00:04 1 mg STAT ONE Administration Hydromorphone HCl Confirm 12/04/23 00:09 Hydromorphone 1 Mg/1ml Inj Administered 12/04/23 00:10 Dose 1 mg .ROUTE .STK-MED ONE Prochlorperazine Edisylate 5 mg 12/04/23 00:03 12/04/23 00:09 Prochlorperazine Edisylate 10 Mg/2 Ml Vial IM 12/04/23 00:04 5 mg STAT ONE Administration Prochlorperazine Edisylate Confirm 12/04/23 00:09 Prochlorperazine Edisylate 10 Mg/2 Ml Vial Administered 12/04/23 00:10 Dose 10 mg .ROUTE .STK-MED ONE Lab/Rad Data: Laboratory Result Diagrams 12/04/23 00:20 12/04/23 00:20 Laboratory Results 12/04/23 12/04/23 Range/Units 00:20 00:20 WBC 5.3 (4.23-9.07) x10^3/uL RBC 4.18 L (4.63-6.08) x10^6/uL Hgb 11.8 L (13.7-17.5) g/dL Hct 38.1 L (40.1-51.0) % MCV 91.1 (79.0-92.2) fL MCH 28.2 (25.7-32.2) pg MCHC 31.0 L (32.3-36.5) g/dL RDW 21.7 H (11.6-14.4) % Plt Count 172 (163-337) x10^3/uL MPV 8.9 L (9.4-12.4) fL Gran % 63.6 (34.0-67.9) % Immature Gran % (Auto) 0.2 (0.001-0.429) % Nucleat RBC Rel Count 0.0 (0.00-0.2) % Eos # (Auto) 0.10 (0.04-0.54) x10^3/uL Immature Gran # (Auto) 0.01 (0.001-0.031) x10^3u/L Absolute Lymphs (auto) 1.49 (1.32-3.57) x10^3/uL Absolute Monos (auto) 0.28 L (0.30-0.82) x10^3/uL Absolute Nucleated RBC 0.00 (0.00-0.012) x10^3u/L Lymphocytes % 28.4 (21.8-53.1) % Monocytes % 5.3 (5.3-12.2) % Eosinophils % 1.9 (0.8-7.0) % Basophils % 0.6 (0.2-1.2) % Absolute Granulocytes 3.34 (1.78-5.38) x10^3/uL Basophils # 0.03 (0.01-0.08) x10^3/uL Sodium 142 (135-145) mmol/L Potassium 3.5 (3.5-5.1) mmol/L Chloride 102 (98-107) mmol/L Carbon Dioxide 31 H (22-30) mmol/L Anion Gap 11.9 (5-15) MEQ/L BUN 15 (9-20) mg/dL Creatinine 1.12 (0.66-1.25) mg/dL Estimated GFR 75.7 ML/MIN Glucose 94 (74-106) mg/dL Calcium 9.3 (8.4-10.2) mg/dL Total Bilirubin 0.40 (0.2-1.3) mg/dL AST 25 (17-59) U/L ALT 15 (0-50) U/L Alkaline Phosphatase 101 (38-126) U/L Serum Total Protein 7.7 (6.3-8.2) g/dL Albumin 3.8 (3.5-5.0) g/dL Amylase 45 (30-110) U/L Lipase 27 (23-300) U/L - Progress Progress: improved, pain not gone completely Progress Note: 12/04/23 00:09 My medical decision making and the assignment of moderate complexity to this pat ient's medical issue today is based on review of the patient's past medical history, review of patient's medication list, reviewed patient drug allergy list, history present illness and physical findings on examination. The workup in this patient includes CBC, CMP, amylase, lipase, CT scan of the abdomen pelvis without contrast, intramuscular Compazine and intramuscular Dilaudid. Differential diagnosis includes but is not limited to anemia, pancreatitis, hepatitis, cirrhosis, medication reaction 12/04/23 01:40 I have interpreted the patient's laboratory data results. Based on the laboratory data results, there are no acute, emergent medical issues. The CT scan of the abdomen pelvis was interpreted by the radiologist and I reviewed the impression. The impression states there is no evidence of any acute intra-abdominal or intrapelvic pathology. The liver is of normal size shape and density. The spleen is of normal size shape and density. There is no evidence of appendicitis. There is no free air and no free fluid present. Counseled pt/family regarding: lab results, diagnosis, need for follow-up, rad results Medical Desision Making - Independent Historian Additional History obtained from: Spouse - Diagnostic Testing Diagnostic test were ordered, analyzed, and reviewed by me: Yes Radiological Interpretation: Reviewed by me, Teleradiologist Report - Risk of complications Low Risk: Low risk of morbidity from additional dx testing or treatment - Departure Departure Disposition: Home Clinical Impression: Right upper quadrant abdominal pain Condition: Stable Critical Care Time: No Referrals: [facility]OSPITAL,'S [Primary Care Provider] - Follow up/PCP as directed Additional Instructions: Drink plenty of fluids. Call your primary care provider today, 12/04/2023, to make arrangements for a follow-up appointment to be seen in the next 3 to 5 days. Continue your medications as prescribed.
[2023-12-04] MEDS: Compazine 10 MG/2 ML IM ONE (00:09)
[2023-12-04] MEDS ORDERED: Compazine 10 MG/2 ML ONE (00:09)
[2023-12-04] MEDS ORDERED: Hydromorphone 1 mg/ml Injection ONE (00:09)
[2023-12-04] MEDS: Hydromorphone 1 mg/ml Injection IM ONE (00:10)
[2023-12-04 00:27] LABS: Absolute Neutrophil Ct (ANC) 3.34 x10^3/uL (1.78-5.38); BASOPHIL % 0.6 % (0.2-1.2); Basophil (Absolute #) 0.03 x10^3/uL (0.01-0.08); Eosinophil % 1.9 % (0.8-7.0); Hematocrit 38.1 % (40.1-51.0); Hemoglobin 11.8 g/dL (13.7-17.5); IMMATURE GRAN # 0.01 x10^3u/L (0.001-0.031); IMMATURE GRAN % 0.2 % (0.001-0.429); Lymphocyte (Absolute #) 1.49 x10^3/uL (1.32-3.57); Lymphocytes % 28.4 % (21.8-53.1); Mean Cell Volume 91.1 fL (79.0-92.2); Mean Corpuscular Hemoglobin 28.2 pg (25.7-32.2); Mean Platelet Volume 8.9 fL (9.4-12.4); Monocyte (Absolute #) 0.28 x10^3/uL (0.30-0.82); Monocytes % 5.3 % (5.3-12.2); Neutrophil % 63.6 % (34.0-67.9); Platelet Count 172 x10^3/uL (163-337); Red Blood Count 4.18 x10^6/uL (4.63-6.08); Red Cell Distribution Width 21.7 % (11.6-14.4); White Blood Count 5.3 x10^3/uL (4.23-9.07)
[2023-12-04 00:29] VITALS: RESP 18; TEMP 97.3; O2SAT 98
[2023-12-04 00:39] LABS: ALBUMIN 3.8 g/dL (3.5-5.0); ANION GAP 11.9 MEQ/L (5-15); BILIRUBIN,TOTAL 0.4 mg/dL (0.2-1.3); Calcium 9.3 mg/dL (8.4-10.2); Creatinine 1 1.12 mg/dL (0.66-1.25); EST GLOMERULAR FILTRATION RATE 75.7 ML/MIN; Potassium 3.5 mmol/L (3.5-5.1); Total Protein 7.7 g/dL (6.3-8.2)
[2023-12-04 01:07] VITALS: BP 101/67; PULSE 70
--- NOTE | 2023-12-04 01:34 | XRAY ---
CLINICAL HISTORY: RUQ ABD pain COMPARISON: Comparison is made with 10/07/2022 ct. TECHNIQUE: Non-contrast CT of the abdomen and pelvis was performed, with the following protocol: axial images, and reconstructed coronal and sagittal images. One of the following dose reduction techniques was utilized for this exam: Automated exposure control, adjustment of the mA and/or kV according to patient size, and use of iterative reconstruction. FINDINGS: Abdomen: Liver: Normal in size, shape, and density. No focal lesions, cysts, or masses were identified. Tiny calcifications noted in the liver. Gallbladder and Biliary System: The gallbladder is removed. Normal CBD. Pancreas: Pancreatic head, body, and tail are visualized and appear normal in size and density. No pancreatic masses or calcifications were noted. Spleen: Normal in size, shape, and density. No splenic lesions or masses were identified. A few tiny calcifications noted in the spleen. Kidneys and Adrenal Glands: Both kidneys are normal in size, shape, and position. Cortical thickness is within normal limits. Tiny stones, 1.8 mm on the right and up to 2 mm on the left, noted in both kidneys without obstruction. No hydronephrosis. Adrenal glands are unremarkable. Abdominal Aorta and Vessels: The abdominal aorta and major branches shows prominent calcified plaques. There is anurysmatic dilatation of the infrarenal abdomina aorta, measuring 3.2 cm in diameter for 5.5 cm segment long. Pelvis: Urinary Bladder: Normal in contour and wall thickness. No intraluminal lesions. Prostate: Normal in size and contour. No masses or abnormal thickening. Seminal Vesicles: Normal appearance without abnormal enlargement or mass. Peritoneal and Retroperitoneal Structures: No free fluid or abnormal fluid collections were identified within the abdomen or pelvis. No lymphadenopathy was noted. Bowel: The visualized bowel loops are normal in caliber and appearance. No evidence of bowel obstruction or wall thickening. No sign of appendicitis. Sigmoid colon shows a few diverticula without diverticulitis. Bones and Soft Tissues: L4 and L5 vertebrae shows instrumentations with bony defect of the posterior elements. L4-L5 disc spacer noted. Pelvic bones and soft tissues are unremarkable. No fractures or abnormal masses were identified. Included chest: Bilateral emphysema of the included lungs noted. IMPRESSION: No evidence of acute intra-abdominal pathology. Bilateral nephrolithiasis without obstruction. Atherosclerosis of the abdominal main vessels. Aneurysmatic dilatation of the abdominal aorta. When comapred to prior CT: The gallbladder is removed. The other findings are similar. Electronically Signed by: Cherelle Elise MD. (12/04/2023 01:30:34 EDT)
== END 2023-12-04 01:48 | disposition home or self-care (01) ==
LOC: ED 23:20
DX: R10.11 Right upper quadrant pain (principal); E78.5 Hyperlipidemia, unspecified; I10 Essential (primary) hypertension; Z79.02 Long term (current) use of antithrombotics/antiplatelets; Z79.891 Long term (current) use of opiate analgesic; Z79.899 Other long term (current) drug therapy; Z72.0 Tobacco use
CPT/HCPCS: 36415; 74176; 80053; 82150; 83690; 85025; 96372; 99284; J1170

== ENCOUNTER 2024-01-09 22:59 | Emergency (ER) | payer OTHER ==
[2024-01-09 23:16] VITALS: TEMP 97.6
--- NOTE | 2024-01-09 23:29 | ERPHSYRPT ---
- History of Present Illness Time Seen by Provider: 01/09/24 23:26 Historian: patient Exam Limitations: no limitations Patient Subjective Stated Complaint: pt states that he is having abdomen pain. pt states that he is having yellow and orange stools Triage Nursing Assessment: pt ambulated into the er; pt is axo x4; c/o abd pain; pt states 10/10 pain to LUQ; hyperactive bowel sounds in all quads; c/o nausea and diarrhea; last bm 1600; pt denies vomiting; abd flat, soft, tender; mucus membranes pink and moist; skin PDW; no respiratory distress present; vitals wnl Physician History: 58-year-old male [facility]. Patient states he has got a known AAA measuring 3 cm. [facility] about [facility] they advised him to come to our ED for an evaluation. Pain described as an ache that is in the epigastrium. Patient states he has had epigastric pain in the past. Patient's gallbladder has been resected in the distant past. Pain described as an ache that is localized. Pain worse with palpation pain improved with rest. Patient advises that he has multiple medicinal allergies and is requesting Dilaudid for pain control. Deep solorzano otherwise feels well. No fever no nausea no vomiting. Patient states his stools are an orange color. Patient denies chest pain or shortness of breath. Family at bedside. Patient voices no other complaints or concerns at this time. Portions of this note were created with voice recognition technology. There may be grammatical, spelling, punctuation or sound alike errors Timing/Duration: today Activities at Onset: none Quality: aching Abdominal Pain Onset Location: epigastric Pain Radiation: no radiation Severity of Pain-Max: moderate Severity of Pain-Current: mild Modifying Factors: Improves With: nothing Associated Symptoms: denies symptoms Allergies/Adverse Reactions: hydrocodone bitartrate [From Vicodin] Allergy (Verified 01/09/24 23:07) Rash Iodinated Contrast Media Allergy (Verified 01/09/24 23:07) ketorolac [From Toradol] Allergy (Verified 01/09/24 23:07) Penicillins Allergy (Verified 01/09/24 23:07) venlafaxine Allergy (Verified 01/09/24 23:07) codeine Adverse Reaction (Verified 01/09/24 23:07) codeine phosphate [From Codar D] Adverse Reaction (Verified 01/09/24 23:07) morphine Adverse Reaction (Verified 01/09/24 23:07) pseudoephedrine HCl [From Codar D] Adverse Reaction (Verified 01/09/24 23:07) Home Medications: Aspirin 81 gm Chew [Baby Aspirin 81 mg Chew] 81 mg PO DAILY 04/11/14 [History] Albuterol Sulfate [Proair Digihaler] 2 puff IH QID PRN PRN 09/11/20 [History] Atorvastatin Calcium 1 tab PO HS 09/11/20 [History] clonazePAM [Clonazepam] 2 mg PO UD PRN 09/11/20 [History] Cholecalciferol (Vitamin D3) [Vitamin D3] 125 mcg PO DAILY 03/22/21 [History] Cyanocobalamin 500 Mcg [Vitamin B-12 500 MCG] 1,000 mcg PO DAILY 03/22/21 [History] Acetaminophen 500 mg [Tylenol Extra Strength 500 mg] 500 mg PO TID 03/30/21 [History] Nitroglycerin [Nitrolingual] 1 gm TL Q5MIN PRN MR X 3 PRN 03/30/21 [History] Folic Acid 1 mg [Folate 1 mg] 1 mg PO DAILY 03/06/23 [History] Levothyroxine Sodium 25 Mcg [Synthroid 25 Mcg] 25 mcg PO DAILY 03/06/23 [History] Loratadine 10 mg [Claritin 10 mg] 10 mg PO DAILY PRN PRN 03/06/23 [Histo ry] Mometasone Furoate [Asmanex] 2 puffs IH BID 03/06/23 [History] Naloxone HCl 4 mg NS UD PRN 03/06/23 [History] Olodaterol/ Tiotrop 2.5mcg/Act 2 puff IH DAILY 03/06/23 [History] Omeprazole 40 mg PO BIDAC 03/06/23 [History] Oxycodone HCl 5 mg PO Q6H PRN PRN 09/30/23 [History] Clopidogrel Bisulfate [PLAVIX Tablet] 75 mg PO DAILY 01/09/24 [History] Hx Tetanus, Diphtheria Vaccination/Date Given: Yes Hx Influenza Vaccination/Date Given: Yes Hx Pneumococcal Vaccination/Date Given: Yes Immunizations Up to Date: Yes Travel Risk - International Travel Have you traveled outside of the country in past 3 weeks: No - Emerging Infectious Disease Are you exhibiting symptoms associated with any current EIDs: Yes Symptoms: Abdominal Pain - Review of Systems Constitutional: No Symptoms, No Fever, No Chills Eyes: No Symptoms Ears, Nose, & Throat: No Symptoms Respiratory: No Symptoms, No Cough, No Dyspnea Cardiac: No Symptoms, No Chest Pain, No Edema, No Syncope Abdominal/Gastrointestinal: No Symptoms, No Abdominal Pain, No Nausea, No Vomiting, No Diarrhea Genitourinary Symptoms: No Symptoms, No Dysuria Musculoskeletal: No Symptoms, No Back Pain, No Neck Pain Skin: No Symptoms, No Rash Neurological: No Symptoms, No Dizziness, No Focal Weakness, No Sensory Changes Psychological: No Symptoms Endocrine: No Symptoms Hematologic/Lymphatic: No Symptoms Immunological/Allergic: No Symptoms All Other Systems: Reviewed and Negative - Past Medical History Pertinent Past Medical History: Yes Neurological History: Peripheral Neuropathy, TIA ENT History: No Pertinent History Cardiac History: Aneurysm, Coronary Artery Disease, High Cholesterol, Hypertension, Myocardial Infarction ([place]) Respiratory History: Asthma, COPD, Emphysema, Pneumonia, Sleep Apnea, Other Endocrine Medical History: Hypothyroidism Musculoskeletal History: Degenerative Disk Disease GI Medical History: Gallbladder Disease, Hernia History: Other Psycho-Social History: Anxiety Male Reproductive Disorders: No Pertinent History Other Medical History: CHRONIC BACK PAIN, carotid artery disease. KIDNEY STONES - Past Surgical History Past Surgical History: Yes Neuro Surgical History: No Pertinent History Cardiac: Cardiac Catheterization, Cardiac Stent Respiratory: Other Gastrointestinal: Cholecystectomy Genitourinary: No Pertinent History Musculoskeletal: Orthopedic Surgery Male Surgical History: No Pertinent History Other Surgical History: R lung cut a 1/4 inch off the top. 1988, back surgery , inspire placement, rt leg fx. drain placed for bile drainage - Social History Smoking Status: Current every day smoker How long have you smoked: 48 yrs Exposure to second hand smoke: Yes Drug Use: none Patient Lives Alone: No - Social Determinants of Health Will the patient participate in the screening: Declined to provide - Nursing Vital Signs Nursing Vital Signs: Initial Vital Signs Temperature 97.6 F 01/09/24 23:07 Pulse Rate 72 01/09/24 23:07 Respiratory Rate 18 01/09/24 23:07 Blood Pressure 138/82 01/09/24 23:07 O2 Sat by Pulse Oximetry 100 01/09/24 23:07 Pain Scale Pain Intensity 10 - Physical Exam General Appearance: no apparent distress, alert Eye Exam: PERRL/EOMI, eyes nml inspection Ears, Nose, Throat Exam: normal ENT inspection, pharynx normal, moist mucous membranes Neck Exam: normal inspection, full range of motion Respiratory Exam: normal breath sounds, lungs clear, No respiratory distress Cardiovascular Exam: regular rate/rhythm, normal heart sounds Gastrointestinal/Abdomen Exam: soft, tenderness (Epigastric tenderness), No mass Back Exam: normal inspection, normal range of motion, No CVA tenderness, No vertebral tenderness Extremity Exam: normal inspection, normal range of motion, pelvis stable Neurologic Exam: alert, oriented x 3, cooperative, normal mood/affect, nml cerebellar function, sensation nml, No motor deficits Skin Exam: normal color, warm, dry SpO2 Interpretation: normal SpO2: 100 O2 Delivery: Room Air - Course Nursing assessment & vital signs reviewed: Yes Ordered Tests: Active Orders 24 hr Category Date Time Status AMA [Release AMA] OM.NOW Care 01/10/24 01:15 Active IV Insertion STAT Care 01/09/24 23:25 Active ABDOMEN AND PELVIS W/0 CONTRAS [CT] Stat Exams 01/09/24 23:25 Taken CBC W DIFF Stat Lab 01/09/24 23:45 Completed CMP Stat Lab 01/09/24 23:45 Completed LIPASE Stat Lab 01/09/24 23:45 Completed TROPONIN Q4H Lab 01/09/24 23:45 Completed TROPONIN Q4H Lab 01/10/24 03:30 Ordered TROPONIN Q4H Lab 01/10/24 07:30 Ordered UA W/RFX UR CULTURE Stat Lab 01/10/24 00:01 Completed Medication Summary Discontinued Medications Generic Name Dose Route Start Last Admin Trade Name Freq PRN Reason Stop Dose Admin Hydromorphone HCl 0.5 mg 01/09/24 23:25 01/09/24 23:57 Hydromorphone 1 Mg/1ml Inj IV 01/09/24 23:26 0.5 mg STAT ONE Administration Hydromorphone HCl Confirm 01/09/24 23:51 Hydromorphone 1 Mg/1ml Inj Administered 01/09/24 23:52 Dose 1 mg .ROUTE .STK-MED ONE Magnesium Hydroxide 45 ml 01/10/24 00:58 Mag Hydrx/Alum Hyd/Simeth/Lido 45 Ml Bottle PO 01/10/24 00:59 STAT ONE Lab/Rad Data: Laboratory Result Diagrams 01/09/24 23:45 01/09/24 23:45 Laboratory Results 01/10/24 01/09/24 01/09/24 Range/Units 00:01 23:45 23:45 WBC (4.23-9.07) x10^3/uL RBC (4.63-6.08) x10^6/uL Hgb (13.7-17.5) g/dL Hct (40.1-51.0) % MCV (79.0-92.2) fL MCH (25.7-32.2) pg MCHC (32.3-36.5) g/dL RDW (11.6-14.4) % Plt Count (163-337) x10^3/uL MPV (9.4-12.4) fL Gran % (34.0-67.9) % Immature Gran % (Auto) (0.001-0.429) % Nucleat RBC Rel Count (0.00-0.2) % Eos # (Auto) (0.04-0.54) x10^3/uL Immature Gran # (Auto) (0.001-0.031) x10^3u/L Absolute Lymphs (auto) (1.32-3.57) x10^3/uL Absolute Monos (auto) (0.30-0.82) x10^3/uL Absolute Nucleated RBC (0.00-0.012) x10^3u/L Lymphocytes % (21.8-53.1) % Monocytes % (5.3-12.2) % Eosinophils % (0.8-7.0) % Basophils % (0.2-1.2) % Absolute Granulocytes (1.78-5.38) x10^3/uL Basophils # (0.01-0.08) x10^3/uL Sodium 141 (135-145) mmol/L Potassium 3.6 (3.5-5.1) mmol/L Chloride 107 (98-107) mmol/L Carbon Dioxide 27 (22-30) mmol/L Anion Gap 10.2 (5-15) MEQ/L BUN 14 (9-20) mg/dL Creatinine 1.23 (0.66-1.25) mg/dL Estimated GFR 67.6 ML/MIN Glucose 111 H (74-106) mg/dL Calcium 8.9 (8.4-10.2) mg/dL Total Bilirubin 0.30 (0.2-1.3) mg/dL AST 21 (17-59) U/L ALT 17 (0-50) U/L Alkaline Phosphatase 84 (38-126) U/L Troponin I < 0.012 (0.000-0.033) ng/mL Serum Total Protein 6.9 (6.3-8.2) g/dL Albumin 3.4 L (3.5-5.0) g/dL Lipase 36 (23-300) U/L Urine Color Yellow (Yellow) Urine Appearance Clear (Clear) Urine pH 5.0 (4.6-8.0) Ur Specific [place] >=1.030 A (1.005-1.030) Urine Protein Trace A (Negative) Urine Glucose (UA) Negative (Negative) mg/dL Urine Ketones Negative (Negative) Urine Blood Negative (Negative) Urine Nitrite Negative (Negative) Urine Bilirubin Negative (Negative) Urine Urobilinogen 1.0 A (0.2) mg/dL Ur Leukocyte Esterase Negative (Negative) U Hyaline Cast (Auto) 3-5 A (0-2) /LPF Urine Microscopic RBC 0-2 (0-5) /HPF Urine Microscopic WBC 0-2 (0-5) /HPF Ur Epithelial Cells None Seen (None Seen) /HPF Urine Bacteria None Seen (None Seen) /HPF Urine Culture Reflexed NO (NO) 01/09/24 Range/Units 23:45 WBC 5.6 (4.23-9.07) x10^3/uL RBC 4.05 L (4.63-6.08) x10^6/uL Hgb 12.2 L (13.7-17.5) g/dL Hct 38.0 L (40.1-51.0) % MCV 93.8 H (79.0-92.2) fL MCH 30.1 (25.7-32.2) pg MCHC 32.1 L (32.3-36.5) g/dL RDW 18.1 H (11.6-14.4) % Plt Count 142 L (163-337) x10^3/uL MPV 9.3 L (9.4-12.4) fL Gran % 64.5 (34.0-67.9) % Immature Gran % (Auto) 0.2 (0.001-0.429) % Nucleat RBC Rel Count 0.0 (0.00-0.2) % Eos # (Auto) 0.10 (0.04-0.54) x10^3/uL Immature Gran # (Auto) 0.01 (0.001-0.031) x10^3u/L Absolute Lymphs (auto) 1.59 (1.32-3.57) x10^3/uL Absolute Monos (auto) 0.27 L (0.30-0.82) x10^3/uL Absolute Nucleated RBC 0.00 (0.00-0.012) x10^3u/L Lymphocytes % 28.2 (21.8-53.1) % Monocytes % 4.8 L (5.3-12.2) % Eosinophils % 1.8 (0.8-7.0) % Basophils % 0.5 (0.2-1.2) % Absolute Granulocytes 3.64 (1.78-5.38) x10^3/uL Basophils # 0.03 (0.01-0.08) x10^3/uL Sodium (135-145) mmol/L Potassium (3.5-5.1) mmol/L Chloride (98-107) mmol/L Carbon Dioxide (22-30) mmol/L Anion Gap (5-15) MEQ/L BUN (9-20) mg/dL Creatinine (0.66-1.25) mg/dL Estimated GFR ML/MIN Glucose (74-106) mg/dL Calcium (8.4-10.2) mg/dL Total Bilirubin (0.2-1.3) mg/dL AST (17-59) U/L ALT (0-50) U/L Alkaline Phosphatase (38-126) U/L Troponin I (0.000-0.033) ng/mL Serum Total Protein (6.3-8.2) g/dL Albumin (3.5-5.0) g/dL Lipase (23-300) U/L Urine Color (Yellow) Urine Appearance (Clear) Urine pH (4.6-8.0) Ur Specific [place] (1.005-1.030) Urine Protein (Negative) Urine Glucose (UA) (Negative) mg/dL Urine Ketones (Negative) Urine Blood (Negative) Urine Nitrite (Negative) Urine Bilirubin (Negative) Urine Urobilinogen (0.2) mg/dL Ur Leukocyte Esterase (Negative) U Hyaline Cast (Auto) (0-2) /LPF Urine Microscopic RBC (0-5) /HPF Urine Microscopic WBC (0-5) /HPF Ur Epithelial Cells (None Seen) /HPF Urine Bacteria (None Seen) /HPF Urine Culture Reflexed (NO) - Progress Progress: improved Progress Note: Patient left AGAINST MEDICAL ADVICE. Patient received Dilaudid IV for pain control. Preliminary laboratory workup nonremarkable. CT scan pending. Patient requested additional pain medication. GI cocktail ordered. Patient did not want a GI cocktail he wanted more Dilaudid and absconded. Patient did not sign an AMA form. Patient left before receiving any form of paperwork or consultation from physician/staff Complexity of problem addressed is moderate acute complicated. No critical care time. Complexity data reviewed and analyzed is moderate. Test ordered chest reviewed results analyzed and correlated clinically with history and physical exam. Risk of complication and or risk of morbidity/mortality of patient management is low. Vital stable. Patient absconded. Portions of this note were created with voice recognition technology. There may be grammatical, spelling, punctuation or sound alike errors 01/10/24 01:16 Counseled pt/family regarding: lab results - Departure Departure Disposition: AMA Clinical Impression: Epigastric pain Condition: Stable Critical Care Time: No Referrals: [facility]OSP[facility],'S [Primary Care Provider] - Follow up/PCP as directed
[2024-01-09] MEDS ORDERED: Hydromorphone 1 mg/ml Injection ONE (23:51)
[2024-01-09 23:52] LABS: Absolute Neutrophil Ct (ANC) 3.64 x10^3/uL (1.78-5.38); BASOPHIL % 0.5 % (0.2-1.2); Basophil (Absolute #) 0.03 x10^3/uL (0.01-0.08); Eosinophil % 1.8 % (0.8-7.0); Hemoglobin 12.2 g/dL (13.7-17.5); IMMATURE GRAN # 0.01 x10^3u/L (0.001-0.031); IMMATURE GRAN % 0.2 % (0.001-0.429); Lymphocyte (Absolute #) 1.59 x10^3/uL (1.32-3.57); Lymphocytes % 28.2 % (21.8-53.1); Mean Cell Volume 93.8 fL (79.0-92.2); Mean Corpuscular Hemoglobin 30.1 pg (25.7-32.2); Mean Corpuscular Hgb Concent. 32.1 g/dL (32.3-36.5); Mean Platelet Volume 9.3 fL (9.4-12.4); Monocyte (Absolute #) 0.27 x10^3/uL (0.30-0.82); Monocytes % 4.8 % (5.3-12.2); Neutrophil % 64.5 % (34.0-67.9); Platelet Count 142 x10^3/uL (163-337); Red Blood Count 4.05 x10^6/uL (4.63-6.08); Red Cell Distribution Width 18.1 % (11.6-14.4); White Blood Count 5.6 x10^3/uL (4.23-9.07)
[2024-01-09] MEDS: Hydromorphone 1 mg/ml Injection IV ONE (23:57)
[2024-01-10 00:05] LABS: ALBUMIN 3.4 g/dL (3.5-5.0); ANION GAP 10.2 MEQ/L (5-15); BILIRUBIN,TOTAL 0.3 mg/dL (0.2-1.3); Calcium 8.9 mg/dL (8.4-10.2); Creatinine 1 1.23 mg/dL (0.66-1.25); EST GLOMERULAR FILTRATION RATE 67.6 ML/MIN; Potassium 3.6 mmol/L (3.5-5.1); Total Protein 6.9 g/dL (6.3-8.2)
[2024-01-10 00:15] LABS: Appearance Clear (Clear); Bacteria None Seen /HPF (None Seen); Bilirubin Negative (Negative); Blood Negative (Negative); Epithelial Cells None Seen /HPF (None Seen); Glucose, Urine Negative (Negative); Ketones Negative (Negative); Leukocyte Esterase Negative (Negative); Nitrite Negative (Negative); Protein,Urine Dip Trace (Negative); RBC 0-2 /HPF (0-5); Specific Gravity >=1.030 (1.005-1.030); WBC 0-2 /HPF (0-5)
[2024-01-10 01:14] VITALS: BP 140/73; PULSE 78; RESP 18
[2024-01-10] MEDS: GI COCKTAIL 45 ML (Maalox/Lidocaine) PO ONE (01:17)
[2024-01-10 01:21] VITALS: O2SAT 100
--- NOTE | 2024-01-10 01:31 | XRAY ---
CLINICAL HISTORY: pain COMPARISON: CT scan dated December 03, 2023. TECHNIQUE: Contiguous axial images were obtained from the level of the lower neck to the pubic symphysis without intravenous or oral contrast. Coronal and sagittal reformatted images were generated and reviewed to assist with anatomic localization and lesion detection. CT scan was performed according to ALARA (as low as reasonable achievable). FINDINGS: The visualised lungs are clear. ABDOMEN/PELVIS: Evaluation of the abdominal and pelvic visceral organs is limited without intravenous contrast. The liver is mildly enlarged measuring 16.2 cm with few tiny subcentimetric calcification foci suggestive of healed granulomas. The spleen measures 14 cm with few tiny calcification foci representing healed granulomas. Few tiny renal concretions are noted in bilateral kidneys. There is no hydronephrosis or perinephric stranding. Extensive atherosclerotic plaques are seen in the abdominal aorta, common, external and internal iliac arteries. The infrarenal abdominal aorta shows aneurysmal dilatation measuring up to 3.2 cm in diameter. Status post L4-L5 posterior vertebral fixation with screws and interconnecting rods in situ. No evidence of focal or diffuse bowel wall thickening or evidence of bowel obstruction is seen. The urinary bladder is normal in contour. No adenopathy or free pelvic fluid is seen. No aggressive appearing osseous lesions are identified. IMPRESSION: 1. Bilateral nephrolithiasis. 2. Infrarenal abdominal aortic aneurysm measuring 3.2 cm, stable compared to prior scan. 3. Mild hepatosplenomegaly. 4. No significant interval change. Electronically Signed by: Alpesh Thompson MD. (01/10/2024 01:26:15 EST)
== END 2024-01-10 01:20 | disposition left against medical advice (07) ==
LOC: ED 22:59
DX: R10.13 Epigastric pain (principal); I71.40 Abdominal aortic aneurysm, without rupture, unspecified; E78.5 Hyperlipidemia, unspecified; I10 Essential (primary) hypertension; Z79.02 Long term (current) use of antithrombotics/antiplatelets; Z79.899 Other long term (current) drug therapy; Z72.0 Tobacco use
CPT/HCPCS: 36415; 74176; 80053; 81001; 83690; 84484; 85025; 96374; 99284; 99285; J1171

== ENCOUNTER 2024-04-05 22:17 | Emergency (ER) | payer OTHER ==
[2024-04-05 22:49] VITALS: RESP 18; TEMP 99.5
[2024-04-05 23:18] LABS: Appearance Clear (Clear); Bacteria None Seen /HPF (None Seen); Bilirubin Negative (Negative); Blood Negative (Negative); Epithelial Cells None Seen /HPF (None Seen); Glucose, Urine Negative (Negative); Ketones Trace (Negative); Leukocyte Esterase Negative (Negative); Nitrite Negative (Negative); Protein,Urine Dip 30 (Negative); RBC 0-2 /HPF (0-5); Specific Gravity >=1.030 (1.005-1.030); WBC 0-2 /HPF (0-5)
[2024-04-05] MEDS ORDERED: Hydromorphone 1 mg/ml Injection ONE (23:25)
[2024-04-05] MEDS: Hydromorphone 1 mg/ml Injection IV ONE (23:26)
[2024-04-05 23:32] VITALS: BP 150/91; O2SAT 99
--- NOTE | 2024-04-05 23:59 | ERPHSYRPT ---
- History of Present Illness Source: patient Exam Limitations: no limitations Patient Subjective Stated Complaint: pt states that he had his left testicle removed a month and a half ago. pt states that he lifted a tire today and has extreme pain to his left groin Triage Nursing Assessment: pt ambulated into the er; pt is axo x4; c/o left groin pain; pt states 10/10 pain to left groin; left groin is hard, tender, swelling; skin PDW; no respiratory distress present; hypertensive Physician History: Patient was lifting a heavy object and then had pain in his groin. He has some new material in his scrotum it looks like it is some herniation. He also has quite a bit of tenderness in his inguinal areas bilaterally. He had a testicle removed in the past. He says he is having difficulty urinating. He says thatHe has to strain and forced to start a stream and he has a feeling of incomplete emptying.He still havingBowel movements. Quality: aching Allergies/Adverse Reactions: hydrocodone bitartrate [From Vicodin] Allergy (Verified 01/09/24 23:07) Rash Iodinated Contrast Media Allergy (Verified 01/09/24 23:07) ketorolac [From Toradol] Allergy (Verified 01/09/24 23:07) Penicillins Allergy (Verified 01/09/24 23:07) venlafaxine Allergy (Verified 01/09/24 23:07) codeine Adverse Reaction (Verified 01/09/24 23:07) codeine phosphate [From Codar D] Adverse Reaction (Verified 01/09/24 23:07) morphine Adverse Reaction (Verified 01/09/24 23:07) pseudoephedrine HCl [From Codar D] Adverse Reaction (Verified 01/09/24 23:07) Home Medications: Aspirin 81 gm Chew [Baby Aspirin 81 mg Chew] 81 mg PO DAILY 04/11/14 [History] Albuterol Sulfate [Proair Digihaler] 2 puff IH QID PRN PRN 09/11/20 [History] Atorvastatin Calcium 1 tab PO HS 09/11/20 [History] clonazePAM [Clonazepam] 2 mg PO UD PRN 09/11/20 [History] Cholecalciferol (Vitamin D3) [Vitamin D3] 125 mcg PO DAILY 03/22/21 [History] Cyanocobalamin 500 Mcg [Vitamin B-12 500 MCG] 1,000 mcg PO DAILY 03/22/21 [History] Acetaminophen 500 mg [Tylenol Extra Strength 500 mg] 500 mg PO TID 03/30/21 [History] Nitroglycerin [Nitrolingual] 1 gm TL Q5MIN PRN MR X 3 PRN 03/30/21 [History] Folic Acid 1 mg [Folate 1 mg] 1 mg PO DAILY 03/06/23 [History] Levothyroxine Sodium 25 Mcg [Synthroid 25 Mcg] 25 mcg PO DAILY 03/06/23 [History] Loratadine 10 mg [Claritin 10 mg] 10 mg PO DAILY PRN PRN 03/06/23 [History] Mometasone Furoate [Asmanex] 2 puffs IH BID 03/06/23 [History] Naloxone HCl 4 mg NS UD PRN 03/06/23 [History] Olodaterol/ Tiotrop 2.5mcg/Act 2 puff IH DAILY 03/06/23 [History] Omeprazole 40 mg PO BIDAC 03/06/23 [History] Oxycodone HCl 5 mg PO Q6H PRN PRN 09/30/23 [History] Clopidogrel Bisulfate [PLAVIX Tablet] 75 mg PO DAILY 01/09/24 [History] Hx Tetanus, Diphtheria Vaccination/Date Given: Yes Hx Influenza Vaccination/Date Given: Yes Hx Pneumococcal Vaccination/Date Given: Yes Immunizations Up to Date: Yes Travel Risk - International Travel Have you traveled outside of the country in past 3 weeks: No - Emerging Infectious Disease Are you exhibiting symptoms associated with any current EIDs: No Symptoms: Abdominal Pain - Past Medical History Pertinent Past Medical History: Yes Neurological History: Peripheral Neuropathy, TIA ENT History: No Pertinent History Cardiac History: Aneurysm, Coronary Artery Disease, High Cholesterol, Hypertension, Myocardial Infarction ([place]) Respiratory History: Asthma, COPD, Emphysema, Pneumonia, Sleep Apnea, Other Endocrine Medical History: Hypothyroidism Musculoskeletal History: Degenerative Disk Disease GI Medical History: Gallbladder Disease, Hernia History: Other Psycho-Social History: Anxiety Male Reproductive Disorders: No Pertinent History Other Medical History: CHRONIC BACK PAIN, carotid artery disease. KIDNEY STONES - Past Surgical History Past Surgical History: Yes Neuro Surgical History: No Pertinent History Cardiac: Cardiac Catheterization, Cardiac Stent Respiratory: Other Gastrointestinal: Cholecystectomy Genitourinary: No Pertinent History Musculoskeletal: Orthopedic Surgery Male Surgical History: No Pertinent History Other Surgical History: R lung cut a 1/4 inch off the top. 1989, back surgery , inspire placement, rt leg fx. drain placed for bile drainage. left testicle removed - Social History Smoking Status: Current every day smoker How long have you smoked: 48 yrs Exposure to second hand smoke: Yes Drug Use: none - Social Determinants of Health Will the patient participate in the screening: Declined to provide - Review of Systems Constitutional: No Symptoms Eyes: No Symptoms Abdominal/Gastrointestinal: Abdominal Pain Genitourinary Symptoms: Urinary Retention Musculoskeletal: No Symptoms All Other Systems: Reviewed and Negative - Nursing Vital Signs Nursing Vital Signs: Initial Vital Signs Pulse Rate 76 04/05/24 22:30 Blood Pressure 168/115 04/05/24 22:30 O2 Sat by Pulse Oximetry 98 04/05/24 22:30 Pain Scale Pain Intensity 7 - Physical Exam General Appearance: no apparent distress Respiratory Exam: normal breath sounds Cardiovascular Exam: regular rate/rhythm Gastrointestinal/Abdomen Exam: hernia (Hernia was present in the scrotal Area.) Male Genital Exam: hydrocele, inguinal tenderness, scrotum tenderness (R) Back Exam: normal inspection Neurologic Exam: alert, oriented x 3 Skin Exam: normal color, warm, dry Lymphatic Exam: adenopathy SpO2: 99 - Course Nursing assessment & vital signs reviewed: Yes Ordered Tests: Active Orders 24 hr Category Date Time Status ABDOMEN AND PELVIS W/0 CONTRAS [CT] Stat Exams 04/05/24 22:51 Completed UA W/RFX UR CULTURE Stat Lab 04/05/24 23:05 Completed Medication Summary Discontinued Medications Generic Name Dose Route Start Last Admin Trade Name Perezq PRN Reason Stop Dose Admin Hydromorphone HCl 1 mg 04/05/24 23:22 04/05/24 23:26 Hydromorphone 1 Mg/1ml Inj IV 04/05/24 23:23 1 mg STAT ONE Administration Hydromorphone HCl Confirm 04/05/24 23:25 Hydromorphone 1 Mg/1ml Inj Administered 04/05/24 23:26 Dose 1 mg .ROUTE .STK-MED ONE Hydromorphone HCl 1 mg 04/06/24 00:00 04/06/24 00:02 Hydromorphone 1 Mg/1ml Inj IV 04/06/24 00:01 1 mg STAT ONE Administration Hydromorphone HCl Confirm 04/06/24 00:02 Hydromorphone 1 Mg/1ml Inj Administered 04/06/24 00:03 Dose 1 mg .ROUTE .STK-MED ONE Lab/Rad Data: Laboratory Results 04/05/24 Range/Units 23:05 Urine Color Yellow (Yellow) Urine Appearance Clear (Clear) Urine pH 5.0 (4.6-8.0) Ur Specific [place] >=1.030 A (1.005-1.030) Urine Protein 30 (Negative) Urine Glucose (UA) Negative (Negative) mg/dL Urine Ketones Trace A (Negative) Urine Blood Negative (Negative) Urine Nitrite Negative (Negative) Urine Bilirubin Negative (Negative) Urine Urobilinogen 1.0 A (0.2) mg/dL Ur Leukocyte Esterase Negative (Negative) U Hyaline Cast (Auto) 3-5 A (0-2) /LPF Urine Microscopic RBC 0-2 (0-5) /HPF Urine Microscopic WBC 0-2 (0-5) /HPF Ur Epithelial Cells None Seen (None Seen) /HPF Urine Bacteria None Seen (None Seen) /HPF Urine Culture Reflexed NO (NO) - Progress Progress: improved Progress Note: CT of the abdomen and pelvis was done as well as a urinalysis. The CT showed some stranding around the left spermatic cord. There is no incarcerated herniations or anything like that. At this time I think the patient stable to go home I think he had a groin strain with probably has some herniation but it does not appear to be emergent. I am going to discharge him to home. 04/06/24 00:47 Medical Desision Making - Diagnostic Testing Diagnostic test were ordered, analyzed, and reviewed by me: Yes - Risk of complications Low Risk: Low risk of morbidity from additional dx testing or treatment - Departure Departure Disposition: Home Clinical Impression: Strain of left inguinal region Condition: Stable Critical Care Time: No Referrals: [facility]OS[facility],'[facility] [Primary Care Provider] - Follow up/PCP as directed Instructions: Groin Hernia (DC), Groin Strain (DC)
[2024-04-06] MEDS: Hydromorphone 1 mg/ml Injection IV ONE (00:02)
[2024-04-06] MEDS ORDERED: Hydromorphone 1 mg/ml Injection ONE (00:02)
[2024-04-06 00:08] VITALS: PULSE 82
--- NOTE | 2024-04-06 00:19 | XRAY ---
CLINICAL HISTORY: pain, swelling in left groin COMPARISON: 01/09/2024. TECHNIQUE: Non-contrast CT of the abdomen and pelvis was performed, with the following protocol: axial images, and reconstructed coronal and sagittal images. One of the following dose reduction techniques was utilized for this exam: Automated exposure control, adjustment of the mA and/or kV according to patient size, and use of iterative reconstruction. FINDINGS: Abdomen: Liver: Stable mildly enlarged in size. Normal shape, and density. Stable multiple small calcific granulomas. Gallbladder and Biliary System: The gallbladder is surgically removed. No biliary obstruction. Pancreas: Pancreatic head, body, and tail are visualized and appear normal in size and density. No pancreatic masses or calcifications were noted. Spleen: Normal in size, shape, and density. Stable multiple small calcific granulomas. Kidneys and Adrenal Glands: Both kidneys are normal in size, shape, and position. Cortical thickness is within normal limits. Stable bilateral small non obstructing renal stones. Adrenal glands are unremarkable. Abdominal Aorta and Vessels: Stable extensive atherosclerotic plaques in the abdominal aorta, common, external and internal iliac arteries. Stable infrarenal abdominal aorta showing aneurysmal dilatation measuring up to 3.2 cm in diameter. Pelvis: Urinary Bladder: Normal in contour and wall thickness. No intraluminal lesions. Prostate: Stable mild prostatic enlargement with concretions Peritoneal and Retroperitoneal Structures: No free fluid or abnormal fluid collections were identified within the abdomen or pelvis. No lymphadenopathy was noted. Bowel: The visualized bowel loops are normal in caliber and appearance. No evidence of bowel obstruction or wall thickening. Bones and Soft Tissues: Newly depicted suspected mildly thickened left spermatic cord with focal smudging of the fat planes at the medial inguinal region. Status post L4-L5 posterior vertebral fixation with screws and interconnecting rods in situ. IMPRESSION: 1. Newly depicted suspected mildly thickened left spermatic cord with focal smudging of the fat planes at the medial inguinal region, likely of inflammatory etiology. please correlate clinically. Further evaluation by ultrasound should be made on clinical grounds 2. Rest of the study is essentially unchanged Electronically Signed by: Cherelle Elise MD. (04/06/2024 00:15:26 EST)
== END 2024-04-06 01:02 | disposition home or self-care (01) ==
LOC: ED 22:17
DX: S39.011A Strain of muscle, fascia and tendon of abdomen, initial encounter (principal); X50.0XXA Overexertion from strenuous movement or load, initial encounter; R39.198 Other difficulties with micturition; E78.5 Hyperlipidemia, unspecified; I10 Essential (primary) hypertension; Z79.02 Long term (current) use of antithrombotics/antiplatelets; Z79.899 Other long term (current) drug therapy; Z72.0 Tobacco use
CPT/HCPCS: 74176; 81001; 96374; 96376; 99284; J1171

== ENCOUNTER 2024-05-30 18:06 | Emergency (ER) | payer OTHER ==
[2024-05-30 18:16] VITALS: RESP 18; TEMP 97.1
--- NOTE | 2024-05-30 18:17 | ERPHSYRPT ---
- History of Present Illness Time Seen by Provider: 05/30/24 18:17 Historian: patient, family Exam Limitations: no limitations Patient Subjective Stated Complaint: PT states "I have bad belly pain for the past couple of days and It goes up into my right ribs." Triage Nursing Assessment: Pt presented alert and oriented X 3, skin pwd. Pt ambulates with a slow upright gait holding his abdomen. pt in no apparent respiratory distress. Physician History: This is a 58-year-old white male patient who arrives by private vehicle accompanied by his spouse and typically receives his medical care from the [facility] system and presents with 2-day history of right upper quadrant abdominal pain. This is a chronic recurring issue. He has no chest pain he has no shortness of breath. He denies nausea vomiting and diarrhea. Patient does have multiple medical problems including hyperlipidemia, anxiety, hypothyroidism, COPD, asthma, gastroesophageal reflux disease, peripheral neuropathy, coronary artery disease, degenerative disc disease, peripheral vascular disease and chronic low back pain. Timing/Duration: day(s) (2) Activities at Onset: none Quality: sharpness, stabbing Abdominal Pain Onset Location: RUQ Pain Radiation: no radiation Severity of Pain-Max: moderate Severity of Pain-Current: moderate Modifying Factors: Improves With: nothing Associated Symptoms: denies symptoms Previous symptoms: same symptoms as today, no recent treatment Allergies/Adverse Reactions: hydrocodone bitartrate [From Vicodin] Allergy (Verified 01/09/24 23:07) Rash Iodinated Contrast Media Allergy (Verified 01/09/24 23:07) ketorolac [From Toradol] Allergy (Verified 01/09/24 23:07) Penicillins Allergy (Verified 01/09/24 23:07) venlafaxine Allergy (Verified 01/09/24 23:07) codeine Adverse Reaction (Verified 01/09/24 23:07) codeine phosphate [From Codar D] Adverse Reaction (Verified 01/09/24 23:07) morphine Adverse Reaction (Verified 01/09/24 23:07) pseudoephedrine HCl [From Codar D] Adverse Reaction (Verified 01/09/24 23:07) Home Medications: Aspirin 81 gm Chew [Baby Aspirin 81 mg Chew] 81 mg PO DAILY 04/11/14 [History] Albuterol Sulfate [Proair Digihaler] 2 puff IH QID PRN PRN 09/11/20 [History] Atorvastatin Calcium 1 tab PO HS 09/11/20 [History] clonazePAM [Clonazepam] 2 mg PO UD PRN 09/11/20 [History] Cholecalciferol (Vitamin D3) [Vitamin D3] 125 mcg PO DAILY 03/22/21 [History] Cyanocobalamin 500 Mcg [Vitamin B-12 500 MCG] 1,000 mcg PO DAILY 03/22/21 [History] Acetaminophen 500 mg [Tylenol Extra Strength 500 mg] 500 mg PO TID 03/30/21 [History] Nitroglycerin [Nitrolingual] 1 gm TL Q5MIN PRN MR X 3 PRN 03/30/21 [History] Folic Acid 1 mg [Folate 1 mg] 1 mg PO DAILY 03/06/23 [History] Levothyroxine Sodium 25 Mcg [Synthroid 25 Mcg] 25 mcg PO DAILY 03/06/23 [History] Loratadine 10 mg [Claritin 10 mg] 10 mg PO DAILY PRN PRN 03/06/23 [History] Mometasone Furoate [Asmanex] 2 puffs IH BID 03/06/23 [History] Naloxone HCl 4 mg NS UD PRN 03/06/23 [History] Olodaterol/ Tiotrop 2.5mcg/Act 2 puff IH DAILY 03/06/23 [History] Omeprazole 40 mg PO BIDAC 03/06/23 [History] Oxycodone HCl 5 mg PO Q6H PRN PRN 09/30/23 [History] Clopidogrel Bisulfate [PLAVIX Tablet] 75 mg PO DAILY 01/09/24 [History] Hx Tetanus, Diphtheria Vaccination/Date Given: Yes Hx Influenza Vaccination/Date Given: No Hx Pneumococcal Vaccination/Date Given: Yes Immunizations Up to Date: No Travel Risk - International Travel Have you traveled outside of the country in past 3 weeks: No - Emerging Infectious Disease Are you exhibiting symptoms associated with any current EIDs: No Symptoms: Abdominal Pain - Review of Systems Constitutional: No Symptoms Eyes: No Symptoms Ears, Nose, & Throat: No Symptoms Respiratory: No Symptoms Cardiac: No Symptoms Abdominal/Gastrointestinal: Abdominal Pain (Right upper quadrant abdominal pain that is localized and nonradiating) Genitourinary Symptoms: No Symptoms Musculoskeletal: No Symptoms Skin: No Symptoms Neurological: No Symptoms Psychological: No Symptoms Endocrine: No Symptoms Hematologic/Lymphatic: No Symptoms Immunological/Allergic: No Symptoms All Other Systems: Reviewed and Negative - Past Medical History Pertinent Past Medical History: Yes Neurological History: Peripheral Neuropathy, TIA ENT History: No Pertinent History Cardiac History: Aneurysm, Coronary Artery Disease, High Cholesterol, Hypertension, Myocardial Infarction ([place]) Respiratory History: Asthma, COPD, Emphysema, Pneumonia, Sleep Apnea, Other Endocrine Medical History: Hypothyroidism Musculoskeletal History: Degenerative Disk Disease GI Medical History: Gallbladder Disease, Hernia History: Other Psycho-Social History: Anxiety Male Reproductive Disorders: No Pertinent History Other Medical History: CHRONIC BACK PAIN, carotid artery disease. KIDNEY STONES - Past Surgical History Past Surgical History: Yes Neuro Surgical History: No Pertinent History Cardiac: Cardiac Catheterization, Cardiac Stent Respiratory: Other Gastrointestinal: Cholecystectomy Genitourinary: No Pertinent History Musculoskeletal: Orthopedic Surgery Male Surgical History: No Pertinent History Other Surgical History: R lung cut a 1/4 inch off the top. 1988, back surgery , inspire placement, rt leg fx. drain placed for bile drainage. left testicle removed - Social History Smoking Status: Current every day smoker How long have you smoked: 48 yrs Exposure to second hand smoke: Yes Drug Use: none - Social Determinants of Health Will the patient participate in the screening: Declined to provide - Nursing Vital Signs Nursing Vital Signs: Initial Vital Signs Temperature 97.1 F 05/30/24 18:12 Pulse Rate 80 05/30/24 18:12 Respiratory Rate 18 05/30/24 18:12 Blood Pressure 125/74 05/30/24 18:12 O2 Sat by Pulse Oximetry 99 05/30/24 18:12 Pain Scale Pain Intensity 8 - Physical Exam General Appearance: no apparent distress, alert, anxiety Eye Exam: PERRL/EOMI, eyes nml inspection Ears, Nose, Throat Exam: normal ENT inspection, moist mucous membranes Neck Exam: normal inspection, non-tender, supple, full range of motion Respiratory Exam: normal breath sounds, lungs clear, No chest tenderness, No respiratory distress Cardiovascular Exam: regular rate/rhythm, normal heart sounds, normal peripheral pulses Gastrointestinal/Abdomen Exam: soft, normal bowel sounds, tenderness (Upper quadrant to palpation), guarding (Right upper quadrant to palpation), No rebound Rectal Exam: not done Back Exam: normal inspection, normal range of motion, No CVA tenderness, No vertebral tenderness Extremity Exam: normal inspection, normal range of motion, pelvis stable Neurologic Exam: alert, oriented x 3, cooperative, youth associate II-XII nml as tested, nml cerebellar function, nml station & gait, sensation nml Skin Exam: normal color, warm, dry Lymphatic Exam: No adenopathy SpO2 Interpretation: normal SpO2: 99 O2 Delivery: Room Air - Course Nursing assessment & vital signs reviewed: Yes Ordered Tests: Active Orders 24 hr Category Date Time Status IV Insertion STAT Care 05/30/24 19:05 Active ABDOMEN AND PELVIS W/0 CONTRAS [CT] Stat Exams 05/30/24 19:05 Completed AMYLASE Stat Lab 05/30/24 19:15 Completed CBC W DIFF Stat Lab 05/30/24 19:15 Completed CMP Stat Lab 05/30/24 19:15 Completed LIPASE Stat Lab 05/30/24 19:15 Completed Medication Summary Discontinued Medications Generic Name Dose Route Start Last Admin Trade Name Freq PRN Reason Stop Dose Admin Hydromorphone HCl 2 mg 05/30/24 19:05 05/30/24 19:16 Hydromorphone 1 Mg/1ml Inj IV 05/30/24 19:06 2 mg STAT ONE Administration Hydromorphone HCl Confirm 05/30/24 19:14 Hydromorphone 1 Mg/1ml Inj Administered 05/30/24 19:15 Dose 2 mg .ROUTE .STK-MED ONE Hydromorphone HCl 1 mg 05/30/24 20:05 05/30/24 20:16 Hydromorphone 1 Mg/1ml Inj IV 05/30/24 20:06 1 mg STAT ONE Administration Hydromorphone HCl Confirm 05/30/24 20:12 Hydromorphone 1 Mg/1ml Inj Administered 05/30/24 20:13 Dose 1 mg .ROUTE .STK-MED ONE Ondansetron HCl 4 mg 05/30/24 19:05 05/30/24 19:16 Ondansetron Hcl 4 Mg/2 Ml Vial IV 05/30/24 19:06 4 mg STAT ONE Administration Ondansetron HCl Confirm 05/30/24 19:13 Ondansetron Hcl 4 Mg/2 Ml Vial Administered 05/30/24 19:14 Dose 4 mg .ROUTE .STK-MED ONE Lab/Rad Data: Laboratory Result Diagrams 05/30/24 19:15 05/30/24 19:15 Laboratory Results 05/30/24 05/30/24 Range/Units 19:15 19:15 WBC 6.3 (4.23-9.07) x10^3/uL RBC 4.57 L (4.63-6.08) x10^6/uL Hgb 15.3 (13.7-17.5) g/dL Hct 46.4 (40.1-51.0) % MCV 101.5 H (79.0-92.2) fL MCH 33.5 H (25.7-32.2) pg MCHC 33.0 (32.3-36.5) g/dL RDW 18.5 H (11.6-14.4) % Plt Count 170 (163-337) x10^3/uL MPV 9.7 (9.4-12.4) fL Gran % 66.3 (34.0-67.9) % Immature Gran % (Auto) 0.3 (0.001-0.429) % Nucleat RBC Rel Count 0.0 (0.00-0.2) % Eos # (Auto) 0.14 (0.04-0.54) x10^3/uL Immature Gran # (Auto) 0.02 (0.001-0.031) x10^3u/L Absolute Lymphs (auto) 1.60 (1.32-3.57) x10^3/uL Absolute Monos (auto) 0.33 (0.30-0.82) x10^3/uL Absolute Nucleated RBC 0.00 (0.00-0.012) x10^3u/L Lymphocytes % 25.4 (21.8-53.1) % Monocytes % 5.2 L (5.3-12.2) % Eosinophils % 2.2 (0.8-7.0) % Basophils % 0.6 (0.2-1.2) % Absolute Granulocytes 4.18 (1.78-5.38) x10^3/uL Basophils # 0.04 (0.01-0.08) x10^3/uL Sodium 143 (135-145) mmol/L Potassium 4.3 (3.5-5.1) mmol/L Chloride 109 H (98-107) mmol/L Carbon Dioxide 21 L (22-30) mmol/L Anion Gap 16.4 H (5-15) MEQ/L BUN 26 H (9-20) mg/dL Creatinine 1.27 H (0.66-1.25) mg/dL Estimated GFR 65.1 ML/MIN Glucose 99 (74-106) mg/dL Calcium 9.3 (8.4-10.2) mg/dL Total Bilirubin 0.50 (0.2-1.3) mg/dL AST 120 H (17-59) U/L ALT 85 H (0-50) U/L Alkaline Phosphatase 449 H (38-126) U/L Serum Total Protein 7.6 (6.3-8.2) g/dL Albumin 3.9 (3.5-5.0) g/dL Amylase 38 (30-110) U/L Lipase 78 (23-300) U/L - Progress Progress: improved, pain not gone completely, re-examined Progress Note: 05/30/24 19:37 My medical decision making and the assignment of moderate complexity of this patient's medical issue today is based on review of the patient's past medical history, review the patient's medication list, reviewed patient drug allergy list, history present illness and physical findings on examination. The workup in this patient includes placement of intravenous line, CBC, CMP, amylase, lipase, CT scan of the abdomen pelvis without contrast. We also provide the patient with intravenous Dilaudid and intravenous Zofran. Differential diagnosis includes but is not limited to acute exacerbation of chronic abdominal pain, pancreatitis, bowel obstruction, colitis, diverticulitis, bowel obstruction 05/30/24 19:54 I interpreted the patient's laboratory data results. Based on laboratory data results, the patient does have elevated transaminase level and elevated alkaline phosphatase level when compared to prior lab results in the past. Patient's total bilirubin is normal. 05/30/24 21:[address] scan of the abdomen pelvis without contrast was interpreted by the radiologist and I reviewed the impression. Impression states when compared to similar study dated 04/05/2024, there is a prominent common bile duct present. It is larger than expected postcholecystectomy. No detected distal common bile duct stones. This is new compared to the prior study. MRCP is advised. In addition, there is a long segment of descending and sigmoid colon inflammation. Differential diagnosis includes colitis but underlying neoplastic process is not completely excluded. This is also new when compared to prior study. 05/30/24 21:37 The patient does have right upper quadrant abdominal pain but no fever. He does not have CharcoAid's triad. His common bile duct is prominent without evidence of common bile duct stones. Has a normal white count and normal differential. 05/30/24 21:37 We will treat his descending and sigmoid colon inflammatory findings with oral antibiotics as an outpatient. Counseled pt/family regarding: lab results, diagnosis, need for follow-up, rad results Medical Desision Making - Independent Historian Additional History obtained from: Spouse - Diagnostic Testing Diagnostic test were ordered, analyzed, and reviewed by me: Yes Radiological Interpretation: Reviewed by me, Teleradiologist Report - Risk of complications The pt has a mod risk of morbidity or mortality based on: Need for prescription drug management - Departure Departure Disposition: Home Clinical Impression: Elevated liver transaminase level, Common bile duct dilatation, Colitis Condition: Stable Critical Care Time: No Referrals: HOSPITAL,'S [Primary Care Provider, UNKNOWN] - Follow up/PCP as directed Additional Instructions: Drink plenty of clear liquids and advance your diet slowly. Avoid fatty greasy spicy foods. Call your primary care provider on 06/02/2024, to make arrangement for follow-up appointment to be seen next week and make arrangements for an outpatient MRCP. If your symptoms worsen over the weekend, proceed to the [facility] in [place]. There, an MRCP can be arranged. No facilities in [facility] or [place] have the ability to perform that study. Prescriptions: Metronidazole 500 mg [Flagyl 500 MG] 500 mg PO TID #21 tablet
[2024-05-30] MEDS ORDERED: Zofran 4 MG/2 ML VIAL ONE (19:13)
[2024-05-30] MEDS ORDERED: Hydromorphone 1 mg/ml Injection ONE ×2 (19:14→20:12)
[2024-05-30] MEDS: Zofran 4 MG/2 ML VIAL IV ONE (19:16)
[2024-05-30] MEDS: Hydromorphone 1 mg/ml Injection IV ONE ×2 (19:16→20:16)
[2024-05-30 19:21] LABS: Absolute Neutrophil Ct (ANC) 4.18 x10^3/uL (1.78-5.38); BASOPHIL % 0.6 % (0.2-1.2); Basophil (Absolute #) 0.04 x10^3/uL (0.01-0.08); Eosinophil % 2.2 % (0.8-7.0); Eosinophil (Absolute #) 0.14 x10^3/uL (0.04-0.54); Hematocrit 46.4 % (40.1-51.0); Hemoglobin 15.3 g/dL (13.7-17.5); IMMATURE GRAN # 0.02 x10^3u/L (0.001-0.031); IMMATURE GRAN % 0.3 % (0.001-0.429); Lymphocytes % 25.4 % (21.8-53.1); Mean Cell Volume 101.5 fL (79.0-92.2); Mean Corpuscular Hemoglobin 33.5 pg (25.7-32.2); Mean Platelet Volume 9.7 fL (9.4-12.4); Monocyte (Absolute #) 0.33 x10^3/uL (0.30-0.82); Monocytes % 5.2 % (5.3-12.2); Neutrophil % 66.3 % (34.0-67.9); Platelet Count 170 x10^3/uL (163-337); Red Blood Count 4.57 x10^6/uL (4.63-6.08); Red Cell Distribution Width 18.5 % (11.6-14.4); White Blood Count 6.3 x10^3/uL (4.23-9.07)
[2024-05-30 19:39] LABS: ALBUMIN 3.9 g/dL (3.5-5.0); ANION GAP 16.4 MEQ/L (5-15); BILIRUBIN,TOTAL 0.5 mg/dL (0.2-1.3); Calcium 9.3 mg/dL (8.4-10.2); Creatinine 1 1.27 mg/dL (0.66-1.25); EST GLOMERULAR FILTRATION RATE 65.1 ML/MIN; Potassium 4.3 mmol/L (3.5-5.1); Total Protein 7.6 g/dL (6.3-8.2)
--- NOTE | 2024-05-30 21:25 | XRAY ---
CLINICAL HISTORY: RUQ ABD pain COMPARISON: CT dated 04/05/2024 TECHNIQUE: Non-contrast CT of the abdomen and pelvis was performed, with the following protocol: axial images, and reconstructed coronal and sagittal images. One of the following dose reduction techniques was utilized for this exam: Automated exposure control, adjustment of the mA and/or kV according to patient size, and use of iterative reconstruction. DLP: 250.78 mGy-cm, CTDI: 4.95 mGy. FINDINGS: Abdomen: Liver: Normal in size, shape, and density. No focal lesions, cysts, or masses were identified. Multiple foci of calcifications are seen scattered in liver, suggesting old granulomas. Gallbladder and Biliary System: Surgically removed gallbladder Prominent common bile duct measuring 12 mm with prominent intrahepatic biliary radicles With no detected distal stones. New compared to prior study. Pancreas: Pancreatic head, body, and tail are visualized and appear normal in size and density. No pancreatic masses or calcifications were noted. Spleen: Normal in size, shape, and density. No splenic lesions or masses were identified. Multiple foci of calcifications seen scattered in spleen suggesting old granulomas Appendix: The appendix is normal in size without katie appendiceal fat stranding, and without an appendicolith. No evidence of appendiceal abscess or perforation. Kidneys and Adrenal Glands: Both kidneys are normal in size, shape, and position. Cortical thickness is within normal limits. No renal hydronephrosis. Multiple bilateral nonobstructing small renal stones the largest on the left side measures 3 mm Adrenal glands are unremarkable. Abdominal Aorta and Vessels: Diffuse atherosclerotic changes with multiple calcified plaques in the aorta and its branches Infrarenal focal abdominal aortic dilatation with maximum caliber of 3 cm Pelvis: Urinary Bladder: Normal in contour and wall thickness. No intraluminal lesions. Prostate: Normal in size and contour. No masses or abnormal thickening. Seminal Vesicles: Normal appearance without abnormal enlargement or mass. Peritoneal and Retroperitoneal Structures: No free fluid or abnormal fluid collections were identified within the abdomen or pelvis. No lymphadenopathy was noted. Bowel: The visualized bowel loops are normal in caliber and appearance. No evidence of bowel obstruction or wall thickening. Bones and Soft Tissues: Pelvic bones and soft tissues are unremarkable. No fractures or abnormal masses were identified. Spine degenerative changes with L4-5 internal fixation Scanned lung bases show bilateral panacinar emphysematous changes Infrarenal focal abdominal aortic dilatation with maximum caliber of 3 cm IMPRESSION: 1. Prominent common bile duct measuring 12mm (Slightly more than the accepted caliber of postcholecystectomy common bile duct ) with no detected distal stones. New compared to prior study. Further MRCP and Lab correlation is advised. 2. Long segment of mild thickening of the descending and sigmoid colon, differential diagnosis includes colitis however possibility of underlying neoplastic process cannot be totally excluded. Clinical correlation and follow-up are advised. New. 3. Multiple bilateral nonobstructing small renal stones. 4. Stable Infrarenal abdominal aortic aneurysm. 5. Compared to prior study no other interval changes. Electronically Signed by: Cheerlle Elise MD. (05/30/2024 21:21:28 EDT)
[2024-05-30 21:53] VITALS: O2SAT 99
[2024-05-30 22:08] VITALS: BP 107/83; PULSE 102
== END 2024-05-30 22:08 | disposition home or self-care (01) ==
LOC: ED 18:06
DX: K52.9 Noninfective gastroenteritis and colitis, unspecified (principal); K83.8 Other specified diseases of biliary tract; R74.01 Elevation of levels of liver transaminase levels; R10.11 Right upper quadrant pain; E78.5 Hyperlipidemia, unspecified; I10 Essential (primary) hypertension; Z79.02 Long term (current) use of antithrombotics/antiplatelets; Z79.899 Other long term (current) drug therapy; Z72.0 Tobacco use
CPT/HCPCS: 36415; 74176; 80053; 82150; 83690; 85025; 96374; 96375; 96376; 99284; J1171; J2405

== ENCOUNTER 2025-01-21 23:12 | Emergency (ER) | payer OTHER ==
[2025-01-21 23:34] VITALS: TEMP 98
--- NOTE | 2025-01-21 23:46 | ERPHSYRPT ---
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 pt states for the last 2 days his home pain medication is not easing his pain, states he is unsure if something has changed so he is here to be evaluated. pt denies new injury or trauma. pt reports increased trouble with balance from his baseline and some bilateral lower leg numbness. Triage Nursing Assessment: pt is aox3, pupils perrl, afebrile, resps easy and non labored, cap refill < 3 seconds, radial pulses strong and equal, pt skin pink warm dry. pt ambulatory to [facility] area with a slow steady gait, unassisted. pt ROM and sensation intact. unable to assess pt for signs of injury/trauma-pt refuses hospital gown. Physician History: Patient is a 59yo M current smoker, history of TIA, neuropathy, AAA, CAD, cardiac stent, HTN, HL, Asthma, COPD, hypothyroidism, anxiety presents to our ED for evaluation of acute on chronic back pain. Patient states he has been experiencing back pain for the past 2 days. Oral analgesics are not helpful. No trauma. No fever. No recent back procedure. No change in bowel bladder function. No saddle anesthesia. Patient states both lower extremities feel somewhat numb. Patient voices no other complaints or concerns at this time. Portions of this note were created with voice recognition technology. There may be grammatical, spelling, punctuation or sound alike errors Timing/Duration: today Severity: moderate Modifying Factors: Improves With: nothing Allergies/Adverse Reactions: hydrocodone bitartrate [From Vicodin] Allergy (Verified 01/21/25 23:34) Rash Iodinated Contrast Media Allergy (Verified 01/21/25 23:34) ketorolac [From Toradol] Allergy (Verified 01/21/25 23:34) Penicillins Allergy (Verified 01/21/25 23:34) venlafaxine Allergy (Verified 01/21/25 23:34) codeine Adverse Reaction (Verified 01/21/25 23:34) codeine phosphate [From Codar D] Adverse Reaction (Verified 01/21/25 23:34) morphine Adverse Reaction (Verified 01/21/25 23:34) pseudoephedrine HCl [From Codar D] Adverse Reaction (Verified 01/21/25 23:34) Home Medications: Aspirin 81 gm Chew [Baby Aspirin 81 mg Chew] 81 mg PO DAILY 04/11/14 [History] Albuterol Sulfate [Proair Digihaler] 2 puff IH QID PRN PRN 09/11/20 [History] Atorvastatin Calcium 1 tab PO HS 09/11/20 [History] clonazePAM [Clonazepam] 2 mg PO UD PRN 09/11/20 [History] Cholecalciferol (Vitamin D3) [Vitamin D3] 125 mcg PO DAILY 03/22/21 [History] Cyanocobalamin 500 Mcg [Vitamin B-12 500 MCG] 1,000 mcg PO DAILY 03/22/21 [History] Acetaminophen 500 mg [Tylenol Extra Strength 500 mg] 500 mg PO TID 03/30/21 [History] Nitroglycerin [Nitrolingual] 1 gm TL Q5MIN PRN MR X 3 PRN 03/30/21 [History] Folic Acid 1 mg [Folate 1 mg] 1 mg PO DAILY 03/06/23 [History] Levothyroxine Sodium 25 Mcg [Synthroid 25 Mcg] 25 mcg PO DAILY 03/06/23 [History] Loratadine 10 mg [Claritin 10 mg] 10 mg PO DAILY PRN PRN 03/06/23 [History] Mometasone Furoate [Asmanex] 2 puffs IH BID 03/06/23 [History] Naloxone HCl 4 mg NS UD PRN 03/06/23 [History] Olodaterol/ Tiotrop 2.5mcg/Act 2 puff IH DAILY 03/06/23 [History] Omeprazole 40 mg PO BIDAC 03/06/23 [History] Oxycodone HCl 5 mg PO Q6H PRN PRN 09/30/23 [History] Clopidogrel Bisulfate [PLAVIX Tablet] 75 mg PO DAILY 01/09/24 [History] Hx Tetanus, Diphtheria Vaccination/Date Given: Yes Hx Influenza Vaccination/Date Given: No Hx Pneumococcal Vaccination/Date Given: Yes Immunizations Up to Date: Yes Travel Risk - International Travel Have you traveled outside of the country in past 3 weeks: No - Emerging Infectious Disease Are you exhibiting symptoms associated with any current EIDs: No Symptoms: Abdominal Pain - Review of Systems All Other Systems: Reviewed and Negative - Past Medical History Pertinent Past Medical History: Yes Neurological History: Peripheral Neuropathy, TIA ENT History: No Pertinent History Cardiac History: Aneurysm, Coronary Artery Disease, High Cholesterol, Hypertension, Myocardial Infarction ([place]) Respiratory History: Asthma, COPD, Emphysema, Pneumonia, Sleep Apnea, Other Endocrine Medical History: Hypothyroidism Musculoskeletal History: Degenerative Disk Disease GI Medical History: Gallbladder Disease, Hernia History: Other Psycho-Social History: Anxiety Male Reproductive Disorders: No Pertinent History Other Medical History: CHRONIC BACK PAIN, carotid artery disease. KIDNEY STONES - Past Surgical History Past Surgical History: Yes Neuro Surgical History: No Pertinent History Cardiac: Cardiac Catheterization, Cardiac Stent Respiratory: Other Gastrointestinal: Cholecystectomy Genitourinary: No Pertinent History Musculoskeletal: Orthopedic Surgery Male Surgical History: No Pertinent History Other Surgical History: R lung cut a 1/4 inch off the top. 1988, back surgery , inspire placement, rt leg fx. drain placed for bile drainage. left testicle removed - Social History Smoking Status: Current every day smoker How long have you smoked: 48 yrs Exposure to second hand smoke: Yes Drug Use: none - Social Determinants of Health Will the patient participate in the screening: Declined to provide - Nursing Vital Signs Nursing Vital Signs: Initial Vital Signs Temperature 98 F 01/21/25 23:22 Pulse Rate 74 01/21/25 23:22 Respiratory Rate 16 01/21/25 23:22 Blood Pressure 151/84 01/21/25 23:22 O2 Sat by Pulse Oximetry 98 01/21/25 23:22 Pain Scale Pain Intensity 8 - Physical Exam General Appearance: no apparent distress, alert Eye Exam: PERRL/EOMI, eyes nml inspection Ears, Nose, Throat Exam: normal ENT inspection, moist mucous membranes Neck Exam: normal inspection, full range of motion Respiratory Exam: normal breath sounds, lungs clear, No respiratory distress Cardiovascular Exam: regular rate/rhythm, normal heart sounds, normal peripheral pulses Gastrointestinal/Abdomen Exam: soft, normal bowel sounds, No tenderness, No mass Back Exam: normal inspection, other (Tenderness to palpation along the lumbar spine. Tenderness to palpation along the lumbar paraspinal musculature as well. Muscle spasm apparent), No CVA tenderness, No vertebral tenderness Extremity Exam: normal inspection, normal range of motion, pelvis stable Neurologic Exam: alert, oriented x 3, cooperative, normal mood/affect, sensation nml, No motor deficits Skin Exam: normal color, warm, dry, No rash Lymphatic Exam: No adenopathy SpO2 Interpretation: normal SpO2: 98 O2 Delivery: Room Air - Course Nursing assessment & vital signs reviewed: Yes - CT Exams Abdomen/Pelvis CT Interpretation: Tele-radiologist Report (CT scan shows chronic findings that are all stable including a AAA.) Other CT Interpretation: Tele-radiologist Report (3D reconstruction views of the lumbar spine shows chronic findings that are stable.) Ordered Tests: Active Orders 24 hr Category Date Time Status IV Insertion STAT Care 01/21/25 23:40 Active ABDOMEN AND PELVIS W/0 CONTRAS [CT] Stat Exams 01/21/25 23:45 Completed RECONSTRUCTION [CT] Stat Exams 01/21/25 23:50 Completed CBC W DIFF Stat Lab 01/21/25 23:40 Completed CMP Stat Lab 01/21/25 23:40 Completed TROPONIN Q4H Lab 01/21/25 23:45 Completed TROPONIN Q4H Lab 01/22/25 03:45 Ordered TROPONIN Q4H Lab 01/22/25 07:45 Ordered UA W/RFX UR CULTURE Stat Lab 01/21/25 23:41 Ordered Medication Summary Discontinued Medications Generic Name Dose Route Start Last Admin Trade Name Freq PRN Reason Stop Dose Admin Hydromorphone HCl 1 mg 01/22/25 00:04 01/22/25 00:07 Hydromorphone 1 Mg/1ml Inj IV 01/22/25 00:05 1 mg STAT ONE Administration Hydromorphone HCl Confirm 01/22/25 00:06 Hydromorphone 1 Mg/1ml Inj Administered 01/22/25 00:07 Dose 1 mg .ROUTE .STK-MED ONE Hydromorphone HCl 0.5 mg 01/22/25 01:20 01/22/25 01:24 Hydromorphone 1 Mg/1ml Inj IV 01/22/25 01:21 0.5 mg STAT ONE Administration Hydromorphone HCl Confirm 01/22/25 01:23 Hydromorphone 1 Mg/1ml Inj Administered 01/22/25 01:24 Dose 1 mg .ROUTE .STK-MED ONE Ondansetron HCl 4 mg 01/21/25 23:40 01/22/25 00:07 Ondansetron Hcl 4 Mg/2 Ml Vial IV 01/21/25 23:41 4 mg STAT ONE Administration Ondansetron HCl Confirm 01/22/25 00:06 Ondansetron Hcl 4 Mg/2 Ml Vial Administered 01/22/25 00:07 Dose 4 mg .ROUTE .STK-MED ONE Lab/Rad Data: Laboratory Result Diagrams 01/22/25 00:00 01/22/25 00:00 Laboratory Results 01/22/25 01/22/25 01/22/25 Range/Units 00:00 00:00 00:00 WBC 6.1 (4.23-9.07) x10^3/uL RBC 3.36 L (4.63-6.08) x10^6/uL Hgb 12.1 L (13.7-17.5) g/dL Hct 36.8 L (40.1-51.0) % MCV 109.5 H (79.0-92.2) fL MCH 36.0 H (25.7-32.2) pg MCHC 32.9 (32.3-36.5) g/dL RDW 12.2 (11.6-14.4) % Plt Count 143 L (163-337) x10^3/uL MPV 9.2 L (9.4-12.4) fL Gran % 71.0 H (34.0-67.9) % Immature Gran % (Auto) 0.3 (0.001-0.429) % Nucleat RBC Rel Count 0.0 (0.00-0.2) % Eos # (Auto) 0.05 (0.04-0.54) x10^3/uL Immature Gran # (Auto) 0.02 (0.001-0.031) x10^3u/L Absolute Lymphs (auto) 1.40 (1.32-3.57) x10^3/uL Absolute Monos (auto) 0.27 L (0.30-0.82) x10^3/uL Absolute Nucleated RBC 0.00 (0.00-0.012) x10^3u/L Lymphocytes % 23.0 (21.8-53.1) % Monocytes % 4.4 L (5.3-12.2) % Eosinophils % 0.8 (0.8-7.0) % Basophils % 0.5 (0.2-1.2) % Absolute Granulocytes 4.31 (1.78-5.38) x10^3/uL Basophils # 0.03 (0.01-0.08) x10^3/uL Sodium 140 (135-145) mmol/L Potassium 3.7 (3.5-5.1) mmol/L Chloride 103 (98-107) mmol/L Carbon Dioxide 27 (22-30) mmol/L Anion Gap 13.4 (5-15) MEQ/L BUN 19 (9-20) mg/dL Creatinine 0.88 (0.66-1.25) mg/dL Estimated GFR 98.4 ML/MIN Glucose 102 (74-106) mg/dL Calcium 9.3 (8.4-10.2) mg/dL Total Bilirubin 0.40 (0.2-1.3) mg/dL AST 20 (17-59) U/L ALT 11 (0-50) U/L Alkaline Phosphatase 98 (38-126) U/L Troponin I < 0.012 (0.000-0.033) ng/mL Serum Total Protein 7.6 (6.3-8.2) g/dL Albumin 3.9 (3.5-5.0) g/dL - Progress Progress: improved Progress Note: Patient is a 59yo M current smoker, history of TIA, neuropathy, AAA, CAD, cardiac stent, HTN, HL, Asthma, COPD, hypothyroidism, anxiety presents to our ED for evaluation of acute on chronic back pain. Patient states he has been experiencing back pain for the past 2 days. Oral analgesics are not helpful. No trauma. No fever. No recent back procedure. No change in bowel bladder function. No saddle anesthesia. Patient states both lower extremities feel somewhat numb. Physical exam reveals tenderness to palpation midline lumbar spine as well as the adjacent bilateral lumbar paraspinal musculature. Spasm is evident on the CT scan as well as on physical exam. Patient requested Dilaudid for pain control. Patient reassessed. Pain significantly improved. Patient is ambulatory with normal gait. Patient neurologically intact. CT scan of the abdomen pelvis and lumbar spine show chronic findings that are all stable. Including the AAA. Laboratory workup otherwise nonremarkable. Patient states he is ready for discharge. Significant other at bedside. They voiced no other complaints or concerns at this time. History obtained from patient and significant other at bedside. Differential diagnosis includes lumbosacral strain, sciatica, lumbar paraspinal spasm, trauma Portions of this note were created with voice recognition technology. There may be grammatical, spelling, punctuation or sound alike errors Complexity of problems addressed is moderate acute complicated. No critical care time. Complexity of data reviewed and analyzed is moderate. Test ordered chest reviewed results analyzed and correlated clinically with history and physical exam. Risk of complication and or risk of morbidity/mortality of patient management is low. Vital stable. Time spent to discharge patient is approximately 15 minutes. Plan of care established via shared decision making. No social determinants of health present to impede follow-up. Portions of this note were created with voice recognition technology. There may be grammatical, spelling, punctuation or sound alike errors 01/22/25 01:45 Counseled pt/family regarding: diagnosis, need for follow-up, rad results - Departure Departure Disposition: Home Clinical Impression: Acute on chronic low back pain, Lumbosacral strain, Lumbar paraspinal muscle spasm Condition: Stable Critical Care Time: No Referrals: [facility]OSPITAL,'[facility] [Primary Care Provider, UNKNOWN] - Follow up/PCP as directed Additional Instructions: Discharge/Care Plan NIDIA KENT JR was seen on 01/22/25 in the Emergency Room. The patient was counseled regarding Diagnosis,Lab results, Imaging studies, need for follow up and when to return to the Emergency Room. Prescriptions given: Discharge Note I have spoken with the patient and/or caregivers. I have explained the patient's condition, diagnosis and treatment plan based on the information available to me at this time. I have answered the patient's and/or caregiver's questions and addressed any concerns. The patient and/or caregivers have as good understanding of the patient's diagnosis, condition and treatment plan as can be expected at this point. The vital signs have been stable. The patient's condition is stable and appropriate for discharge from the emergency department. The patient will pursue further outpatient evaluation with the primary care physician or other designated or consulting physician as outlined in the discharge instructions. The patient and/or caregivers are agreeable to this plan of care and follow-up instructions have been explained in detail. The patient and/or caregivers have received these instruction. The patient/and or caregivers are aware that any significant change in condition or worsening of symptoms should prompt an immediate return to this or the closest emergency department or call 911.
[2025-01-22 00:03] LABS: BASOPHIL % 0.5 % (0.2-1.2); Basophil (Absolute #) 0.03 x10^3/uL (0.01-0.08); Eosinophil (Absolute #) 0.05 x10^3/uL (0.04-0.54); Hematocrit 36.8 % (40.1-51.0); Hemoglobin 12.1 g/dL (13.7-17.5); IMMATURE GRAN # 0.02 x10^3u/L (0.001-0.031); IMMATURE GRAN % 0.3 % (0.001-0.429); Lymphocyte (Absolute #) 1.40 x10^3/uL (1.32-3.57); Mean Corpuscular Hemoglobin 36.0 pg (25.7-32.2); Mean Corpuscular Hgb Concent. 32.9 g/dL (32.3-36.5); Monocyte (Absolute #) 0.27 x10^3/uL (0.30-0.82); NUCLEATED RBC # 0.00 x10^3u/L (0.00-0.012); NUCLEATED RBC % 0.0 % (0.00-0.2); Platelet Count 143 x10^3/uL (163-337); Red Blood Count 3.36 x10^6/uL (4.63-6.08); White Blood Count 6.1 x10^3/uL (4.23-9.07)
[2025-01-22] MEDS ORDERED: Zofran 4 MG/2 ML VIAL ONE (00:06)
[2025-01-22] MEDS ORDERED: Hydromorphone 1 mg/ml Injection ONE ×2 (00:06→01:23)
[2025-01-22] MEDS: Hydromorphone 1 mg/ml Injection IV ONE ×2 (00:07→01:24)
[2025-01-22] MEDS: Zofran 4 MG/2 ML VIAL IV ONE (00:07)
[2025-01-22 00:18] LABS: Calcium 9.3 mg/dL (8.4-10.2); Carbon Dioxide 27.0 mmol/L (22-30); Creatinine 1 0.88 mg/dL (0.66-1.25); EST GLOMERULAR FILTRATION RATE 98.4 ML/MIN; Glucose 102.0 mg/dL (74-106); Potassium 3.7 mmol/L (3.5-5.1); SGOT/AST 20.0 U/L (17-59); SGPT/ALT 11.0 U/L (0-50); Total Protein 7.6 g/dL (6.3-8.2)
[2025-01-22 00:39] VITALS: PULSE 67
[2025-01-22 01:05] VITALS: BP 121/85; RESP 17
--- NOTE | 2025-01-22 01:20 | XRAY ---
CLINICAL HISTORY: pain COMPARISON: 18:20:17 [employer]DLEWARE [employer]. TECHNIQUE: Contiguous axial images were obtained from the level of the diaphragm to the pubic symphysis without intravenous or oral contrast. Coronal and sagittal reconstructions were likewise performed and indicated to increase the sensitivity for detecting clinically relevant pathology. CT scan was performed according to ALARA (as low as reasonably achievable). FINDINGS: The visualized lung bases are clear. Evaluation of the abdominal and pelvic visceral organs is limited without intravenous contrast. Multiple tiny hepatosplenic calcified granulomas. The unenhanced liver, spleen, pancreas, and adrenal glands are grossly unremarkable. The gallbladder is absent- post op. The kidneys are normal in size and attenuation without obvious calcification. There is no hydronephrosis or perinephric stranding. Multiple tiny concretions are noted involving bilateral kidneys; more on left side. The ureters are normal in caliber. No adenopathy or fluid collections are seen. No evidence of bowel obstrcution or abnormal bowel wall thickening. No imaging evidence of appendicitis. The aorta is normal in caliber. The urinary bladder is normal in contour. Pelvic viscera are grossly unremarkable. No aggressive appearing osseous lesions are identified. Diffuse atherosclerotic calcification is noted involving the aorta and iliac arteries. Stable infrarenal abdominal aortic aneurysm - diameter measures up to 29 mm. Postoperative changes noted in the spine with fixation screws and disc device are seen in situ without obvious loosening. IMPRESSION: Multiple tiny hepatosplenic calcified granulomas - stable. Multiple tiny concretions are noted involving bilateral kidneys; more on left side. - stable. Diffuse atherosclerotic calcification is noted involving the aorta and iliac arteries - stable. Stable infrarenal abdominal aortic aneurysm - diameter measures up to 29 mm. No other new interval abnormality since prior study. Electronically Signed by: Alpesh Thompson MD. (01/22/2025 01:18:14 EST)
--- NOTE | 2025-01-22 01:20 | XRAY ---
CLINICAL HISTORY: pain COMPARISON: None. TECHNIQUE: Multiple contiguous axial images were obtained through the lumbar spine without IV contrast. Sagittal and coronal reformatted images were obtained from the axial data. The CT scan was performed according to ALARA (as low as reasonably achievable). FINDINGS: Loss of lumbar lordosis ? suggestive of muscle spasm/positional. Degenerative changes involving the lumbar spine in the form of multilevel marginal osteophytes, disc space reduction, and facetal arthrosis. Postoperative changes with laminectomy defect are noted involving L4 and L5 vertebrae. The intrapedicular fixation screw and disc device are seen without loosening. The lumbar vertebral bodies are maintained in height and alignment. No vertebral destructive changes are seen. T11-T12: Evaluated on sagittal images only. No disc bulge, canal stenosis, or neuroforaminal narrowing. Subarticular recesses are patent. T12-L1: Evaluated on sagittal images only. No disc bulge, canal stenosis, or neuroforaminal narrowing. Subarticular recesses are patent. L1-L2: No disc bulge, canal stenosis, or neuroforaminal narrowing. Subarticular recesses are patent. L2-L3: No disc bulge, canal stenosis, or neuroforaminal narrowing. Subarticular recesses are patent. L3-L4: No disc bulge, canal stenosis, or neuroforaminal narrowing. Subarticular recesses are patent. L4-L5: No disc bulge, canal stenosis, or neuroforaminal narrowing. Subarticular recesses are patent. L5-S1: No disc bulge, canal stenosis, or neuroforaminal narrowing. Subarticular recesses are patent. Paravertebral soft tissues are unremarkable. Atherosclerotic changes with multifocal ectasia of the abdominal aorta. IMPRESSION: Lumbar spondylosis. Postoperative changes with laminectomy defect are noted involving L4 and L5 vertebrae. The intrapedicular fixation screw and disc device are seen without loosening. Electronically Signed by: Alpesh Thompson MD. (01/22/2025 01:19:40 EST)
[2025-01-22 01:42] VITALS: O2SAT 98
== END 2025-01-22 01:52 | disposition home or self-care (01) ==
LOC: ED 23:12
DX: G89.29 Other chronic pain (principal); S39.012A Strain of muscle, fascia and tendon of lower back, initial encounter; M62.830 Muscle spasm of back; I10 Essential (primary) hypertension; Z79.02 Long term (current) use of antithrombotics/antiplatelets; Z79.899 Other long term (current) drug therapy; Z72.0 Tobacco use